=== PATIENT | female | born 1940 | race African-American/Black ===

== ENCOUNTER 2020-04-09 06:00 | Inpatient (IN) | payer OTHER ==
[2020-04-09] MEDS ORDERED: BENZOIN/ALOE VERA/STORAX/TOLU 58 ML BOTTLE ONE (07:34)
[2020-04-09] MEDS ORDERED: HEPARIN NA (PORCINE) 5,000 UNITS/ML 1ML VIAL ONE (07:34)
[2020-04-09] MEDS ORDERED: THROMBIN (BOVINE) 5,000 UNIT VIAL TP ONE ×2 (07:34→09:51)
[2020-04-09] MEDS ORDERED: PROPOFOL 20 ML ONE ×9 (07:55→12:39)
[2020-04-09] MEDS ORDERED: MIDAZOLAM HCL 2 MG/2 ML SINGLE DOSE VIAL ONE (07:58)
[2020-04-09] MEDS ORDERED: ROCURONIUM BROMIDE 50 MG/5 ML SYRINGE ONE (08:00)
[2020-04-09] MEDS ORDERED: EPHEDRINE SULFATE/0.9% NACL/PF 50 MG/10 ML SYRINGE NR ONE (08:01)
[2020-04-09] MEDS ORDERED: ceFAZolin SODIUM 1 GM VIAL IVPB ONE (08:54)
[2020-04-09] MEDS ORDERED: VANCOMYCIN 1,000 MG VIAL (RESTRICTED TO ID ONLY) IVPB ONE (09:02)
[2020-04-09] MEDS ORDERED: fentaNYL CITRATE 250 MCG/5 ML VIAL ONE (09:05)
[2020-04-09] MEDS ORDERED: HYDROmorphone HCl 2 MG/ML VIAL ONE (09:40)
[2020-04-09] MEDS ORDERED: BUPIVACAINE HCL/PF 0.25% (2.5MG/ML) 10 ML VIAL ONE (10:51)
[2020-04-09] MEDS ORDERED: BUPIVACAINE LIPOSOME/PF (EXPAREL) 266 MG/20 ML VIAL ONE (10:51)
[2020-04-09] MEDS ORDERED: morphine SULFATE/PF 0.5 MG/ML (2cc Syringe - QUVA) ONE (12:16)
[2020-04-09] MEDS ORDERED: BUPIVACAINE HCL/PF 2.5 MG/ML - 30 ML VIAL IJ ONE (13:01)
[2020-04-09] MEDS ORDERED: BUPIVACAINE LIPOSOME/PF (EXPAREL) 266 MG/20 ML VIAL NR ONE (13:01)
[2020-04-09] MEDS ORDERED: SODIUM CHLORIDE 0.9% P/F 10 ML VIAL IJ ONE (13:22)
[2020-04-09] MEDS ORDERED: LIDOCAINE HCL 2% JELLY (5 ML/TUBE) ONE (13:22)
[2020-04-09] MEDS ORDERED: ceFAZolin SODIUM 1 GM VIAL ONE ×2 (13:22→21:00)
[2020-04-09] MEDS ORDERED: LIDOCAINE HCL/PF 2% SDV 5ML VIAL ONE (13:22)
[2020-04-09] MEDS ORDERED: DEXAMETHASONE SOD PHOSPHATE 4 MG/1 ML VIAL ONE (13:22)
[2020-04-09] MEDS ORDERED: TRANEXAMIC ACID 1000 MG/10 ML VIAL ONE (13:22)
[2020-04-09] MEDS ORDERED: GLYCOPYRROLATE 0.2 MG/1 ML VIAL ONE (13:22)
[2020-04-09] MEDS ORDERED: ONDANSETRON 4 MG/2 ML VIAL ONE (13:22)
[2020-04-09] MEDS ORDERED: VANCOMYCIN 1,000 MG VIAL (RESTRICTED TO ID ONLY) ONE (13:22)
[2020-04-09] MEDS ORDERED: NEOSTIGMINE METHYLSULFATE 0.5 MG/1 ML - 10 ML MDV ONE (13:49)
[2020-04-09] MEDS ORDERED: ACETAMINOPHEN 1000 MG/100 ML VIAL (NON FORMULARY) IVPB PRN (13:57)
[2020-04-09] MEDS ORDERED: ONDANSETRON 4 MG/2 ML VIAL IVPUSH PRN (13:57)
[2020-04-09] MEDS ORDERED: diazePAM 2 MG TABLET PO PRN (13:57)
--- NOTE | 2020-04-09 14:05 | PN ---
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 (short form) - Note 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: 79F s/p removal of hardware L3-L5 (including L4-L5 intervertebral cage), inspection of fusion mass, L3-S1 laminectomies, L5-S1 PLIF, L3-S1 posterior instrumented spinal fusion POD #0. Incidental durotomy during cage removal successfully repaired; Multiple valsalva maneuvers negative for CSF leak. -Admit to ICU post-op. -Pain control: NO NSAID's; patient received intra-op paraspinal muscle block w/Exparel & marcaine; OK to use HIGH DENSITY TALC COATER OPERATOR if needed; transition to oral analgesia post-op. -DVT PPx: -Mechanical only: LITA's, SCD's. -Chemical: None. -Incentive spirometry q15 min. -NPO until flatus. -[place] care; d/c when ambulating. -Ancef post-op x 3 doses. -PT/OT/Rehab, OOB. -WBAT B/L LE. -No bending, lifting (>5 lbs), or twisting for 9-12 months. -Care per ICU & medical hospitalist teams. -Discharge planning: Ubaldo gutierrez; f/u 7-10 days after rehab discharge at [facility] office; call for appointment; . -Will follow. Seth Cuenca MD (Orthopaedic Surgery).
--- NOTE | 2020-04-09 14:09 | OP ---
Operative Note - Note: Operative Date: 04/09/20 Pre-Operative Diagnosis: Migrated intervertebral cage. Radiculopathy. Back pain Operation: 1. Removal of hardware. 2. Inspections of fusion mass. 3. L3-S1 laminectomies. 4. L5-S1 PLIF. 5. L3-S1 PISF Post-Operative Diagnosis: Same as Pre-op Surgeon: Seth Cuenca Consultant Teacher: Marko Cuenca Anesthesiologist/COLLECTIONS CLERK: Ara Smith Anesthesia: General Specimens Removed: Hardware Estimated Blood Loss (mls): 375 Blood Volume Replaced (mls): 125 (Cell Saver) Fluid Volume Replaced (mls): 1,700 (Crystalloid) Operative Report Dictated: Yes
[2020-04-09] MEDS ORDERED: NALOXONE HCL 0.4 MG/ML VIAL ONE (14:11)
--- NOTE | 2020-04-09 14:58 | OP ---
DATE OF OPERATION: DATE OF DICTATION: 04/09/2020 ADDENDUMClosure: Fascial 1 Vicryl, subcutaneous 1 and 2-0 Vicryl, skin twan. No drain was utilized. One g vancomycin given just at the time of closure. Operation went well. No complications. Blood loss 375 mL, 125 mL given back via cell saver. MD SHREYA Mcfarland/[id number]
[2020-04-09] MEDS ORDERED: METOPROLOL TARTRATE 5 MG/5 ML VIAL ONE (18:01)
[2020-04-09] MEDS ORDERED: METOPROLOL TARTRATE 5 MG/5 ML VIAL IVPUSH ONE ×2 (18:05→18:11)
[2020-04-09] MEDS ORDERED: LABETALOL HCL 5 MG/1 ML (100MG/20 ML VIAL) IVPUSH ONE (19:51)
--- NOTE | 2020-04-09 19:51 | CONSULT ---
Consultation: REQUESTING PROVIDER: Dr. Cuenca CONSULT REQUEST: We have been asked to medically evaluate this patient for postoperative management HISTORY OF PRESENT ILLNESS: Patient is a 79 year old female with history of hypertension, dementia, depression, spinal stenosis, neuropathy admitted for removal of L3-L5 hardware, including L4-L5 intervertebral cage, L3-S1 laminectomy, L5-S1 PLIF, L3-S1 posterior instrumented spinal fusion. Upon my encounter, patient endorses mild pain (5/10). Denies subjective fevers, chills, shortness of breath, chest pain, palpitations, abdominal pain, nausea, vomiting. diarrhea. Additional history obtained from patient's niece; endorses history of prior back surgery 8 years ago (?Dr Davies)- removed today due to worsening pain, and reported spinal impingement. At baseline, patient does not ambulate, and has 24 hour home care. REVIEW OF SYSTEMS: As per HPI. At baseline, patient has history of dementia and is unable to provide further historical details. PHYSICAL EXAMINATION Vital Signs - 24 hr 04/09/20 04/09/20 04/09/20 06:38 06:40 14:26 Temperature 97.1 F L 98.3 F Pulse Rate 63 94 H Respiratory 16 10 Rate Blood Pressure 175/82 H 185/90 H O2 Sat by Pulse 97 100 Oximetry (%) 04/09/20 04/09/20 04/09/20 14:45 15:00 15:15 Temperature Pulse Rate 72 77 76 Respiratory 10 9 L 13 Rate Blood Pressure 164/75 157/75 153/72 O2 Sat by Pulse 100 100 100 Oximetry (%) 04/09/20 04/09/20 04/09/20 15:30 15:45 16:00 Temperature Pulse Rate 88 87 82 Respiratory 10 10 14 Rate Blood Pressure 148/83 163/82 153/79 O2 Sat by Pulse 100 100 100 Oximetry (%) 04/09/20 04/09/20 04/09/20 16:15 16:30 16:45 Temperature Pulse Rate 81 86 86 Respiratory 13 12 15 Rate Blood Pressure 156/91 158/79 159/80 O2 Sat by Pulse 100 99 98 Oximetry (%) 04/09/20 04/09/20 04/09/20 17:00 17:15 17:30 Temperature Pulse Rate 82 76 81 Respiratory 11 10 12 Rate Blood Pressure 155/80 178/86 H 182/76 H O2 Sat by Pulse 99 99 100 Oximetry (%) 04/09/20 04/09/20 04/09/20 17:46 18:29 18:31 Temperature 97.7 F 98.0 F Pulse Rate 82 64 Respiratory 12 13 13 Rate Blood Pressure 198/83 H 179/83 H O2 Sat by Pulse 100 100 Oximetry (%) GENERAL: Awake, alert, and oriented to person, and place in no acute distress. HEAD: Normal with no signs of trauma. EYES: Pupils equal, round and reactive to light, extraocular movements intact, conjunctiva clear. EARS, NOSE, THROAT: oropharynx clear without exudates. Moist mucous membranes. NECK: Normal range of motion, supple without lymphadenopathy, JVD, or masses. LUNGS: Breath sounds equal, clear to auscultation bilaterally. No wheezes, and no crackles. No accessory muscle use. HEART: Regular rate and rhythm, normal S1 and S2. Holosystolic murmur auscultated. ABDOMEN: Soft, nontender, not distended, normoactive bowel sounds, no guarding, no rebound, no masses. MUSCULOSKELETAL: Normal range of motion at all joints. No bony deformities or tenderness. No CVA tenderness. EXTREMITIES: 2+ radial, dorsalis pedis pulses, warm, well-perfused. No cyanosis. No peripheral edema. NEUROLOGICAL: Cranial nerves II-XII intact. Normal speech PSYCHIATRIC: Cooperative. Good eye contact. Appropriate mood and affect. SKIN: Warm, dry. Lumbar surgical site bandaged clean, dry. Laboratory Results - last 24 hr 04/09/20 04/09/20 06:08 08:30 Blood Type O POSITIVE O POSITIVE Antibody Screen Negative Active Medications Generic Name Dose Route Start Last Admin Trade Name Freq PRN Reason Stop Dose Admin Acetaminophen 1,000 mg 04/09/20 13:57 Ofirmev Injection - IVPB 04/10/20 13:56 PRN PRN If narcotics are ineffective Citalopram Hydrobromide 20 mg 04/09/20 22:00 Celexa - PO HS JAYE Diazepam 2 mg 04/09/20 13:57 Valium - PO Q8H PRN MUSCLE SPASMS Lactated Ringer's 1,000 mls @ 125 mls/hr 04/09/20 14:00 Lactated Ringers Solution IV ASDIR JAYE Cefazolin Sodium 1 gm/ 50 mls @ 100 mls/hr 04/09/20 20:00 Dextrose IVPB 04/10/20 03:29 Q6H-IV JAYE Losartan Potassium 25 mg 04/10/20 10:00 Cozaar - PO DAILY JAYE Mirtazapine 7.5 mg 04/09/20 22:00 Remeron - PO HS JAYE Ondansetron HCl 4 mg 04/09/20 13:57 Zofran Injection IVPUSH Q6H PRN NAUSEA AND/OR VOMITING Oxycodone HCl 10 mg 04/09/20 13:57 Roxicodone - PO Q4H PRN PAIN LEVEL 6-10 Oxycodone HCl 5 mg 04/09/20 13:57 Roxicodone - PO Q4H PRN PAIN LEVEL 1-5 ASSESSMENT/PLAN: Patient is a 79 year old female with history of dementia, hypertension, spinal stenosis s/p removal of L3-L5 hardware, including L4-L5 intervertebral cage, L3- S1 laminectomy, L5-S1 PLIF, L3-S1 posterior instrumented spinal fusion. Neurologic History of dementia, depression -Continue home Mirtazapine, Citalopram -Monitor for signs of mental status changes Pulmonary -Currently saturating well, without respiratory distress. -Incentive spirometer q15 minutes -Monitor for change in oxygen requirements, respiratory distress Cardiovascular History of hypertension -Losartan 25mg PO daily -Labetalol 10mg IV push for systolic BP greater than 160mmHg Musculoskeletal S/P removal of L3-L5 hardware, including L4-L5 intervertebral cage, L3-S1 laminectomy, L5-S1 PLIF, L3-S1 posterior instrumented spinal fusion. -Pain control with Oxycodone, Morphine. NO NSAIDs per orthopedic surgery -Physical therapy consult Gastrointestinal -NPO until patient is passing flatus -Gentle hydration with IV normal saline at 50mL/ hour FEN -IV normal saline at 50mL/ hour -Follow BMP -NPO until flatus Prophylaxis -SCDs bilateral lower extremities Disposition: We will continue to follow the patient. Thank you for this consultative opportunity. Visit type - Emergency Visit Emergency Visit: Yes ED Registration Date: 04/09/20 Care time: The patient presented to the Emergency Department on the above date and was hospitalized for further evaluation of their emergent condition. - New Patient This patient is new to me today: Yes Date on this admission: 07/06/20 - Critical Care Critical Care patient: Yes Total Critical Care Time (in minutes): 37 Critical Care Statement: The care of this patient involved high complexity decision making to prevent further life threatening deterioration of the patient's condition and/or to evaluate & treat vital organ system(s) failure or risk of failure. ATTENDING PHYSICIAN STATEMENT I saw and evaluated the patient. I reviewed the resident's note and discussed the case with the resident. I agree with the resident's findings and plan as documented. SUBJECTIVE: OBJECTIVE: ASSESSMENT AND PLAN:
[2020-04-09] MEDS ORDERED: MORPHINE SULFATE 2 MG/ML VIAL IVPUSH ONE (19:54)
[2020-04-09] MEDS ORDERED: MORPHINE SULFATE 2 MG/ML VIAL ONE (19:58)
--- NOTE | 2020-04-09 20:04 | OP ---
Date of Operation: 04/09/2020 Pre-Operative Diagnosis: 1. Failed hardware with migrated cage and associated spinal stenosis, nerve root compression, and radiculopathy 2. 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 3. L3-S1 spinal stenosis with neurogenic claudication. 4. L5-S1 spondylolisthesis (Grade 1 retrolisthesis). 5. L5-S1 axial segmental instability. 6. Pseudarthrosis L4-L5 Post-Operative Diagnosis: 1. Failed hardware with migrated cage and associated spinal stenosis, nerve root compression, and radiculopathy 2. 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 3. L3-S1 spinal stenosis with neurogenic claudication. 4. L5-S1 spondylolisthesis (Grade 1 retrolisthesis). 5. L5-S1 axial segmental instability. 6. Pseudarthrosis L4-L5 Procedure Performed: 1. Removal of hardware L3-L5 (screws, rods); removal of L4-L5 migrated intervertebral cage. (84699) 2. Inspection of fusion mass. ([id number]) 3. L3, L4, L5, S1 bilateral laminectomies and facetectomies. (19891-49-73, x 3) 4. L5-S1 posterolateral arthrodesis & posterior lumbar interbody fusion (PLIF). (67226-04) 5. L5-S1 insertion biomechanical device. (63410-25) 6. L3-S1 posterior instrumentation. (49366-30-27-13) 7. L3-L4, L4-L5. (, ) 8. Morselized bone autograft. () 9. Morselized bone allograft. () 10. Bone marrow aspiration for bone grafting. (15728-44) 11. Complex wound closure, 4 layers, 30cm. (03260-66 x 4) 12. Paraspinal muscle block w/Exparel & Marcaine. Surgeon: Seth Cuenca M.D. Clothing Examiner: Marko Cuenca M.D. Anesthesiologist: Ara Smith M.D. Anesthesia: General. Position: Prone. Incision: Midline. Specimens Removed: L5-S1 disc. Drains: None. Estimated Blood Loss: 375cc. Intravenous Fluid: 1.7L crystalloid. Transfusions: 125cc Cell Saver. Complications: None. Bacteriology: None. Closure: No. 1 Vicryl, 2-0 Biosyn absorbable sutures. Indications: The patient was indicated for the above listed surgical procedure due to progressive neurological and functional decline that limits her mobility and capacity to independently perform routine activities of daily living. She has been rendered wheelchair bound due to her level of dysfunction. The patient was identified in the holding area by her armband. A long discussion was held with the patient regarding the risks, benefits and alternatives of the above-named procedure. The risks include, but are not limited to: pain, bleeding, infection, damage to surrounding structures (including nerves, blood vessels, skin, ligaments, tendons, and bone), nerve palsy, paresthesias, weakness, limp, wound complications, pseudarthrosis, failure of fusion, failure of hardware/implants/reduction, need for further surgery, blood clots, myocardial infarction, pulmonary embolism, cerebrovascular event, anesthesia complications, neurological injury, loss of function, and . Benefits as mentioned above. Alternatives include no surgery. All questions were answered. The patient understood and agreed to the procedure. Informed consent was obtained, witnessed and verified by hospital nursing staff. The patients lumbar spine was marked. The patient was then taken to the operating room. Procedure: The patient was brought into the operating room. Consent and the operative site were again verified with the patient, the nursing team, the surgical team, and the anesthesiology team. Anesthesia, IV antibiotics, and TXA were then administered without complication. A time out was done, led by me the attending surgeon. An indwelling [place] catheter was successfully inserted by the nursing team. The intra-operative neuromonitoring team provided prepositioning baseline motor and sensory readings. The patient was then safely placed in a prone position with all bony prominences well-padded on a [facility] OS spine table with strict attention paid to maintenance of sagittal vertical alignment. Retroversion of the pelvis was avoided by ensuring that the hips were extended. This also ensured appropriate lumbar lordosis. The arms were placed on well-padded arm boards and maintained with standard forward flexion, abduction, and external rotation of the shoulders, and flexion of the elbows. Special attention was given to the safe positioning of the cervical spine. The patients eyes, breasts, and belly were all free. The table was placed in 6 degrees of reverse Trendelenburg position to avoid ophthalmic vein congestion. Post-positional motor and sensory readings confirmed no change. A C-arm fluoroscopy unit was positioned perpendicularly to the table and maintained at the level of the upper thoracic spine, except when needed. The skin was prepped in standard, sterile fashion using betadine prep & scrub, wiped off with alcohol, and DuraPrep applied. Standard window draping was utilized, and this included draping of the C-arm. All pre-operative imaging was available throughout the case for intraoperative evaluation. Verification of the intended surgical levels was confirmed with a lateral fluoroscopic x-ray using a Chadwick elevator for localization. A time-out was repeated, and the case began. A midline skin incision was performed from the tip of the spinous process of L1 to the tip of the spinous process of S2. Using electrocautery, the dissection was carried down through subcutaneous fat and then through the midline of the lumbodorsal fascia down to the tips of the spinous processes. A subperiosteal dissection was performed using a combination of unipolar electrocautery and Chadwick elevation. This was carried down the spinous process, over the laminae, across the facet joints, and out over the tips of the transverse processes from L3 to the ala of the sacrum. The previously placed bilateral L3-5 transpedicular screws and associated rods were fully exposed during this dissection. The posterolateral dissection was performed with attention to hemostasis by utilizing both unipolar as well as bipolar electrocautery. In this dissection, the capsules of the L2-L3 joints were preserved bilaterally. The L3-L4, L4-L5, and L5-S1 joint capsules were pathologically hypertrophic. These facet joints were ablated using electrocautery and resected with Leksell rongeurs. The posterolateral and intertransverse spaces were packed with Ray-Joo sponges. A rongeur was used to grasp the L3, L4, and L5 spinous processes and demonstrate the mobility of the L3-L4, L4-L5, and L5-S1 segments. This helped identify the last mobile segment. A pseudarthrosis was identified at L4-L5. All screw caps, rods, and screws were then successfully removed without complication. Bilateral laminectomies were performed at L3, L4, L5, and S1 utilizing Kerrison rongeur upcuts combined with Leksell rongeurs. All harvested bone was saved, freed of fibrous tissue, and morselized with a bone mill. Next, an osteotome was utilized to bilaterally longitudinally split the pars interarticularis and the inferior facets of L3, L4, and L5. The osteotomized bone was imploded towards the thecal sac, which was protected with cottonoid patties, and removed with either a Leksell rongeur or a Kerrison ronguer. The ligamentum flavum and other posterior soft tissue remained intact and served as a soft-tissue cushion which protected the dura during the bony implosion. Upon removal of all osteotomized bone, we gained clear and easy access to the superior facets of L4, L5, and S1, where abnormally tight recess stenosis was appreciated. The exiting L3, L4, L5, & S1 nerve roots were identified and protected. More than the medial half of the superior facet was resected on each side using Kerrison rongeurs. This was necessary to adequately decompress the theca and the exiting nerve roots at each level. The crowding of the convoluted ligamentum flavum and posterior facet joint capsules contributed to the recess stenosis. These structures were excised using Kerrison upcuts, thus fully completing the decompression. Each foramen from L3-S1 was inspected utilizing an angled ball-tipped probe and proved to be generously capacious in accommodating the unobstructed exit of the nerve root at that level. The proud cage was readily noted at L4-L5. A nerve root retractor was used to expose the left side of the intervertebral space at L4-L5. The thecal sac could not be retracted due to adhesions now binding it to the underlying, posteriorly migrated intervertebral cage. At least 25% of the cage was proud. The thecal sac was meticulously dissected off the cage using a Sakina elevator and Gamaliel 4 elevator. With the thecal sac full dissected off the cage, an osteotome was sunk along all 4 borders of the cage to free it up from adhesed surfaces. The cage was adherent anteriorly and a Leksell rongeur was used to remove the cage in piecemeal fashion. The cage was completely, successfully removed. A longitudinal durotomy occurred during cage removal. The durotomy was successfully repaired using 4-0 Nurolon sutured in simple interrupted fashion. The thecal sac appeared plump and normal turgor restored. The anesthesiologist then performed a Valsalva maneuver up to 40mmHg. There was no evidence of dural defect, cerebrospinal fluid leak, or uncontrollable bleeding. There was reactive bone formation within the L4-L5 interspace. The decision was made not to further add bone graft to the L4-L5 interspace due to the possibility of posterior migration and future ingrowth or ongrowth involving the neural elements. All retractors were relaxed and removed. A Jamshidi needle was delivered into the left posterior ileum through the same surgical incision. Via this, 60 mL of bone marrow was aspirated and spun down to isolate a mix of osteoprogenitor and hematopoietic cells, and molecular growth factors which might facilitate fusion formation. Retractors were inserted once again. In order to adequately decompress each lateral recess and neuroforamen from L3- S1, greater than 50% of the facet joint on each side was osteotomized and resected. This extensive decompression has been shown to result in iatrogenic instability of the spine (I.E. spondylolisthesis). Thus, the decision was made to additionally perform posterior lumbar interbody fusions at L4-L5 and L5-S1 (where the discs were additionally compromised) with instrumented posterolateral arthrodesis from L3-S1. The combination of anterior interbody arthrodesis and posterolateral instrumented arthrodesis is known to produce the highest success rates of spinal fusion surgery. The following was performed at L5-S1: The theca was gently mobilized from left to right using a nerve root retractor. In order to do this, we ensured that each nerve root was completely free in its neural foramen as previously described. With the intervertebral disc clearly visualized, large epidural veins were cauterized using bipolar electrocautery. The disc was approached from the left side and using a #11-blade, an elliptical annulotomy was performed. Italo were passed into the disc. The disc was morselized with rotation of the italo, and then extricated with pituitary rongeurs and saved for lab evaluation. The end plates were freed of all soft tissues using a serrated curette. Milled bone autograft was packed into the interbody space, thus completing an anterior arthrodesis of the intervertebral space. A 84x72ty Fortilink Tetrafuse spacer, that was packed with autograft bone, was inserted into the prepared intervertebral space. The cage was placed in a Press-Fit type manner where the italo were one size under the actual size of the spacer placed as outlined above. An interference fit of the cage assured as we relied on ligamentotaxis for fixation. Placement of the interbody cage additionally reconstituted the intervertebral disc height, which further decompressed the stenosed neuroforaminae bilaterally. No dural problems were encountered, and the dura appeared healthy throughout the procedure. At this point, the neuromonitoring revealed no complications. Pedicle screws were then seated bilaterally from L3-L5 utilizing the previously used screw holes. Pedicle screws were then seated bilaterally at S1 utilizing standard anatomical guidelines: IE the intersection of the horizontal axis of the transverse process with the longitudinal axis of the inferior facet at each level. Utilizing lateral fluoroscopic x-ray, a 4.5mm pneumatic drill was passed via the pedicle at each level, into the corresponding vertebral body. Imaging allowed us to ensure that the drill screw was delivered along the undersurface of each endplate. This ensured fixation into the best quality bone. Each pedicle was palpated with a ball-tipped feeler. No breech of anterior, medial, lateral, caudal or cranial bone bed was noted. Precision Spine Reform screws were inserted from L3 to S1. All intraoperative neuromonitoring readings were at or above the safe passage of 10 mA. Each screw was reevaluated with lateral and anteroposterior fluoroscopy as well as intraoperative neuromonitoring. The L3, L4, L5 and S1 pedicles were inspected and palpated using an angled ball- tipped probe. There was no evidence of screw breach involving any of the pedicles. Next, two rods were contoured, inserted, and fixed into the screw heads with the appropriate screw caps. A torque-limiting device completed the fixation of each cap into each screw head. No crosslink utilized because of the bulging dura. Next, the muscle was gently retracted off the intertransverse plane. All Ray-Joo packing sponges were removed. The anesthesiologist then performed a repeat Valsalva maneuver up to 40mmHg. There was no evidence of dural defect, cerebrospinal fluid leak, or uncontrollable bleeding. The durotomy site was covered with SurgiCel and DuraSeal. Milled autologous bone with allograft expansion was combined with the bone marrow aspirate concentrate and used for the posterolateral arthrodesis along the intertransverse plane from L3 to S1. Prior to this bone grafting, the recipient bone bed was denuded of all soft tissue. No burring was necessary due to healthy bleeding of each bony surface, including the posterior surfaces of the bilateral transverse processes, and the lateral surfaces of the pars interarticularis at each level. Throughout the case, the wound was irrigated with normal saline solution to keep the exposed soft tissues hydrated. The retractors were released every 15 to 20 minutes to enable adequate blood flow to the paraspinal muscles. These muscles were gently massaged upon release of the retractors to further facilitate blood flow. At the end of the procedure, fragmented and compromised paraspinal muscle was superficially debrided. Closure: The lumbodorsal fascia overlying the paraspinal musculature was closed in the midline using #1 vicryl sutures in simple interrupted fashion. The wound was repeatedly thoroughly irrigated with normal saline solution. Excellent hemostasis was achieved and the decision was made not to place a drain. The subcutaneous tissues were closed using #1 Vicryl sutures. The skin was closed using skin twan. This completed a 4-layered complex wound closure of approximately 30cm. The incision was covered with Xeroform and a Primapore adhesive Telfa island dressing. A compressive dressing was applied using 4x4 gauze pads. The skin was painted with DuraPrep. The wound was then sealed with adhesive Ioban. Final AP & lateral fluoroscopic analysis a L5-S1 PLIF cages and L3-S1 instrumentation that appeared intact & place. The L5-S1 disc heights were reconstituted with visibly patent neuroforaminae. There was no fluoroscopic evidence of retained sponges or needles. The sponge and needle counts were correct at the end of the case and I, the attending surgeon, was present and scrubbed throughout the case. All neural monitoring leads were removed. The patient was transferred to a hospital bed. The patient was then transferred to the recovery room in stable condition, as per the anesthesia team, having tolerated the procedure well. Overall comment: Operation went extremely well. All appropriate goals were achieved in this operative event. MD SHREYA Mcfarland/[id number] [email or web address]
[2020-04-09] MEDS ORDERED: SODIUM CHLORIDE 1,000 ML IV SCH (20:15)
[2020-04-09] MEDS ORDERED: PT OWN MED DRAWER 7, Y5N ONE (21:00)
[2020-04-09] MEDS ORDERED: DEXTROSE 5%-WATER - 50 ML IVPB ONE (21:00)
[2020-04-09] MEDS: MIRTAZAPINE 15 MG TABLET (FP) PO SCH (21:01)
[2020-04-09] MEDS: LACTATED RINGERS SOLUTION 1,000 ML IV SCH (21:02)
[2020-04-09] MEDS: CEFAZOLIN 1 GM in DEXTROSE 5%-WATER - 50 ML IVPB SCH ×2 (21:02)
[2020-04-09] MEDS: oxyCODONE HCL 5 MG TABLET PO PRN (21:20)
[2020-04-09] MEDS: CITALOPRAM HYDROBROMIDE 20 MG TABLET PO SCH (21:59)
[2020-04-09] MEDS ORDERED: LIDOCAINE 5% TOPICAL PATCH TP ONE (22:00)
[2020-04-10] MEDS ORDERED: DEXTROSE 5%-WATER - 50 ML IVPB ONE (01:11)
[2020-04-10] MEDS ORDERED: ceFAZolin SODIUM 1 GM VIAL ONE (01:11)
[2020-04-10] MEDS: oxyCODONE HCL 5 MG TABLET PO PRN ×3 (01:59→21:45)
[2020-04-10] MEDS: CEFAZOLIN 1 GM in DEXTROSE 5%-WATER - 50 ML IVPB SCH (02:00)
[2020-04-10 06:46] LABS: HEMATOCRIT 37.7 % (32.4-45.2); HEMOGLOBIN 11.8 GM/dL (10.7-15.3); MCH 26.7 pg (25.7-33.7); MCHC 31.3 g/dl (32.0-36.0); MEAN CELL VOLUME 85.5 fl (80-96); MEAN PLT VOLUME 8.7 fl (7.5-11.1); PLATELET COUNT 293 K/MM3 (134-434); RBC 4.41 M/mm3 (3.60-5.2); RDW 13.4 % (11.6-15.6); WHITE BLOOD COUNT 23.4 K/mm3 (4.0-10.0)
[2020-04-10 06:57] LABS: BLOOD UREA NITROGEN 14.4 mg/dL (7-18); CALCIUM 9.9 mg/dL (8.5-10.1); CREATININE 0.9 mg/dL (0.55-1.3); MAGNESIUM 1.5 mg/dL (1.8-2.4); PHOSPHOROUS 3.6 mg/dL (2.5-4.9); POTASSIUM 4.2 mmol/L (3.5-5.1)
[2020-04-10] MEDS ORDERED: MAGNESIUM SULF 50% (8.12 MEQ/2 ML-1 GM VIAL) IVPB ONE (07:52)
[2020-04-10] MEDS: LOSARTAN POTASSIUM 25 MG TABLET PO SCH (09:09)
[2020-04-10] MEDS ORDERED: LIDOCAINE PATCH REMOVAL MC ONE (10:00)
[2020-04-10] MEDS: LACTATED RINGERS SOLUTION 1,000 ML IV SCH ×2 (12:41→15:09)
--- NOTE | 2020-04-10 13:59 | PN ---
<Ej Covarrubias MD - Last Filed: 04/11/20 12:19> Physical Exam: SUBJECTIVE: Patient seen and examined OBJECTIVE: Vital Signs Period Temp Pulse Resp BP Sys/Lepe Pulse Ox Last 24 Hr 98.2 F-98.7 F 76-87 15-25 130-150/54-68 100 GENERAL: The patient is awake, alert, and fully oriented, in no acute distress. HEAD: Normal with no signs of trauma. EYES: PERRL, extraocular movements intact, sclera anicteric, conjunctiva clear. No ptosis. ENT: Ears normal, nares patent, oropharynx clear without exudates, moist mucous membranes. NECK: Trachea midline, full range of motion, supple. LUNGS: Breath sounds equal, clear to auscultation bilaterally, no wheezes, no crackles, no accessory muscle use. HEART: Regular rate and rhythm, S1, S2 without murmur, rub or gallop. ABDOMEN: Soft, nontender, nondistended, normoactive bowel sounds, no guarding, no rebound, no hepatosplenomegaly, no masses. EXTREMITIES: 2+ pulses, warm, well-perfused, no edema. NEUROLOGICAL: Cranial nerves II through XII grossly intact. Normal speech, gait not observed. PSYCH: Normal mood, normal affect. SKIN: Warm, dry, normal turgor, no rashes or lesions noted Laboratory Results - last 24 hr 04/11/20 04/11/20 05:45 05:45 WBC 19.9 H RBC 3.45 L Hgb 9.2 L Hct 29.0 L D MCV 84.2 MCH 26.6 MCHC 31.6 L RDW 13.3 Plt Count 265 MPV 8.1 Absolute Neuts (auto) 17.3 H Neutrophils % 86.7 H Lymphocytes % 7.1 L Monocytes % 5.7 Eosinophils % 0.1 Basophils % 0.4 Nucleated RBC % 0 Sodium 137 Potassium 4.2 Chloride 103 Carbon Dioxide 29 Anion Gap 5 L BUN 8.6 Creatinine 0.6 Est GFR (CKD-EPI)AfAm 101.90 Est GFR (CKD-EPI)NonAf 87.92 Random Glucose 89 Calcium 8.8 Phosphorus 2.1 L Magnesium 1.8 Total Bilirubin 0.7 AST 20 ALT 11 L Alkaline Phosphatase 71 Total Protein 5.6 L Albumin 2.1 L Active Medications Generic Name Dose Route Start Last Admin Trade Name Freq PRN Reason Stop Dose Admin Citalopram Hydrobromide 20 mg 04/09/20 22:00 04/10/20 21:44 Celexa - PO 20 mg HS JAYE Administration Diazepam 2 mg 04/09/20 13:57 Valium - PO Q8H PRN MUSCLE SPASMS Lactated Ringer's 1,000 mls @ 125 mls/hr 04/09/20 14:00 04/11/20 06:21 Lactated Ringers Solution IV 125 mls/hr ASDIR JAYE Administration Losartan Potassium 25 mg 04/10/20 10:00 04/11/20 10:43 Cozaar - PO 25 mg DAILY JAYE Administration Mirtazapine 7.5 mg 04/09/20 22:00 04/10/20 21:45 Remeron - PO 7.5 mg HS JAYE Administration Ondansetron HCl 4 mg 04/09/20 13:57 Zofran Injection IVPUSH Q6H PRN NAUSEA AND/OR VOMITING Oxycodone HCl 10 mg 04/09/20 13:57 04/10/20 01:59 Roxicodone - PO 10 mg Q4H PRN Administration PAIN LEVEL 6-10 Oxycodone HCl 5 mg 04/09/20 13:57 04/11/20 06:21 Roxicodone - PO 5 mg Q4H PRN Administration PAIN LEVEL 1-5 ASSESSMENT/PLAN: Lumbar Spinal Stenosis s/p Removal of L3-L5 hardware, including L4-L5 intervertebral cage, L3-S1 laminectomy, L5-S1 PLIF, L3-S1 posterior instrumented spinal fusion HTN - pain control - incentive spirometry - rehab/PT - DVT prophylaxis - disposition per surgery ATTENDING PHYSICIAN STATEMENT I saw and evaluated the patient. I reviewed the resident's note and discussed the case with the resident. I agree with the resident's findings and plan as documented. SUBJECTIVE: OBJECTIVE: ASSESSMENT AND PLAN: <Katheryn Alexis - Last Filed: 04/12/20 16:49> Physical Exam: SUBJECTIVE: Patient seen and examined. Stated that her pain is 5/10. She is POD #1 of removal of L3-L5 hardware, including L4-L5 intervertebral cage, L3-S1 laminectomy, L5-S1 PLIF, L3-S1 posterior instrumented spinal fusion. OBJECTIVE: Vital Signs Period Temp Pulse Resp BP Sys/Lepe Pulse Ox Last 24 Hr 97.7 F-98.3 F 58-94 9-17 133-198/57-91 98-100 GENERAL: The patient is awake, alert and in no acute distress. HEENT: NCAT LUNGS: Breath sounds equal, clear to auscultation bilaterally, no wheezes HEART: Regular rate and rhythm, S1, S2 without murmur ABDOMEN: Soft, nondistended EXTREMITIES: warm, well-perfused, no edema. Spontaneous movement in all 4 extremities. SKIN: Warm, dry. Surgical site on back is clean, dry and intact. Laboratory Last Values WBC 23.4 K/mm3 (4.0-10.0) H 04/10/20 05:40 RBC 4.41 M/mm3 (3.60-5.2) 04/10/20 05:40 Hgb 11.8 GM/dL (10.7-15.3) 04/10/20 05:40 Hct 37.7 % (32.4-45.2) 04/10/20 05:40 MCV 85.5 fl (80-96) 04/10/20 05:40 MCH 26.7 pg (25.7-33.7) 04/10/20 05:40 MCHC 31.3 g/dl (32.0-36.0) L 04/10/20 05:40 RDW 13.4 % (11.6-15.6) 04/10/20 05:40 Plt Count 293 K/MM3 (134-434) 04/10/20 05:40 MPV 8.7 fl (7.5-11.1) 04/10/20 05:40 Sodium 138 mmol/L (136-145) 04/10/20 05:40 Potassium 4.2 mmol/L (3.5-5.1) 04/10/20 05:40 Chloride 104 mmol/L (98-107) 04/10/20 05:40 Carbon Dioxide 24 mmol/L (21-32) 04/10/20 05:40 Anion Gap 11 MMOL/L (8-16) 04/10/20 05:40 BUN 14.4 mg/dL (7-18) 04/10/20 05:40 Creatinine 0.9 mg/dL (0.55-1.3) 04/10/20 05:40 Est GFR (CKD-EPI)AfAm 71.48 04/10/20 05:40 Est GFR (CKD-EPI)NonAf 61.67 04/10/20 05:40 Random Glucose 99 mg/dL (74-106) 04/10/20 05:40 Calcium 9.9 mg/dL (8.5-10.1) 04/10/20 05:40 Phosphorus 3.6 mg/dL (2.5-4.9) 04/10/20 05:40 Magnesium 1.5 mg/dL (1.8-2.4) L 04/10/20 05:40 Blood Type O POSITIVE 04/09/20 08:30 Antibody Screen Negative 04/09/20 06:08 Active Medications Acetaminophen (Ofirmev Injection -) 1,000 mg IVPB PRN PRN PRN Reason: If narcotics are ineffective Stop: 04/10/20 13:56 Last Admin: 04/09/20 21:57 Dose: 1,000 mg Documented by: Citalopram Hydrobromide (Celexa -) 20 mg [address] [facility] Last Admin: 04/09/20 21:59 Dose: 20 mg Documented by: Diazepam (Valium -) 2 mg PO Q8H PRN PRN Reason: MUSCLE SPASMS Lactated Ringer's (Lactated Ringers Solution) 1,000 mls @ 125 mls/hr IV ASDIR [facility] Last Admin: 04/10/20 12:41 Dose: 125 mls/hr Documented by: Sodium Chloride (Normal Saline -) 1,000 mls @ 50 mls/hr IV ASDIR [facility] Stop: 04/10/20 16:14 Last Admin: 04/09/20 21:03 Dose: 50 mls/hr Documented by: Losartan Potassium (Cozaar -) 25 mg PO DAILY [facility] Last Admin: 04/10/20 09:09 Dose: 25 mg Documented by: Mirtazapine (Remeron -) 7.5 mg PO [facility] Last Admin: 04/09/20 21:01 Dose: 7.5 mg Documented by: Ondansetron HCl (Zofran Injection) 4 mg IVPUSH Q6H PRN PRN Reason: NAUSEA AND/OR VOMITING Oxycodone HCl (Roxicodone -) 10 mg PO Q4H PRN PRN Reason: PAIN LEVEL 6-10 Last Admin: 04/10/20 01:59 Dose: 10 mg Documented by: Oxycodone HCl (Roxicodone -) 5 mg PO Q4H PRN PRN Reason: PAIN LEVEL 1-5 ASSESSMENT/PLAN: Patient is a 79 year old female with history of dementia, hypertension, spinal stenosis s/p removal of L3-L5 hardware, including L4-L5 intervertebral cage, L3- S1 laminectomy, L5-S1 PLIF, L3-S1 posterior instrumented spinal fusion. Post-op day #1. Surgical site clean, dry and intact. Neurologic History of dementia, depression -Continue home Mirtazapine, Citalopram -Monitor for signs of mental status changes Pulmonary -Currently saturating well, without respiratory distress. -Incentive spirometer q15 minutes -Monitor for change in oxygen requirements, respiratory distress Cardiovascular History of hypertension -Losartan 25mg PO daily -Labetalol 10mg IV push for systolic BP greater than 160mmHg Musculoskeletal S/P removal of L3-L5 hardware, including L4-L5 intervertebral cage, L3-S1 laminectomy, L5-S1 PLIF, L3-S1 posterior instrumented spinal fusion. -Pain control with Oxycodone, Morphine. NO NSAIDs per orthopedic surgery -Physical therapy consult -Orthopedic surgery evaluated pt. Recommends OOB to chair. Advance diet to clears if tolerated. Gastrointestinal -NPO until patient is passing flatus -Gentle hydration with IV normal saline at 50mL/ hour ID -WBC 23.4, afebrile. Will continue to trend. If uptrending WBC and febrile, will send blood cx, urine cx, UA. -If diarrhea, will send stool for C. diff. FEN -Lactated ringers 125 ml/hr -NS at 50 mL/hr -Advance diet to clears if tolerated. -Mg 1.5, repleted. Will follow and replete if depleted. Prophylaxis -SCDs bilateral lower extremities Disposition: continue ICU monitoring. Visit type - Emergency Visit Emergency Visit: Yes ED Registration Date: 04/09/20 Care time: The patient presented to the Emergency Department on the above date and was hospitalized for further evaluation of their emergent condition. - New Patient This patient is new to me today: No - Critical Care Critical Care patient: Yes Total Critical Care Time (in minutes): 38 Critical Care Statement: The care of this patient involved high complexity decision making to prevent further life threatening deterioration of the patient's condition and/or to evaluate & treat vital organ system(s) failure or risk of failure. ATTENDING PHYSICIAN STATEMENT I saw and evaluated the patient. I reviewed the resident's note and discussed the case with the resident. I agree with the resident's findings and plan as documented. SUBJECTIVE: OBJECTIVE: ASSESSMENT AND PLAN:
[2020-04-10] MEDS ORDERED: PT OWN MED DRAWER 7, Y5N ONE (21:18)
[2020-04-10] MEDS: CITALOPRAM HYDROBROMIDE 20 MG TABLET PO SCH (21:44)
[2020-04-10] MEDS: MIRTAZAPINE 15 MG TABLET (FP) PO SCH (21:45)
[2020-04-11] MEDS: LACTATED RINGERS SOLUTION 1,000 ML IV SCH ×2 (06:21→21:09)
[2020-04-11] MEDS: oxyCODONE HCL 5 MG TABLET PO PRN ×2 (06:21→21:16)
[2020-04-11 06:43] LABS: BASO % 0.4 % (0-2.0); EOS % 0.1 % (0-4.5); HEMOGLOBIN 9.2 GM/dL (10.7-15.3); LYMPH % 7.1 % (8-40); MCH 26.6 pg (25.7-33.7); MCHC 31.6 g/dl (32.0-36.0); MEAN CELL VOLUME 84.2 fl (80-96); MEAN PLT VOLUME 8.1 fl (7.5-11.1); MONO % 5.7 % (3.8-10.2); NEUT % 86.7 % (42.8-82.8); PLATELET COUNT 265 K/MM3 (134-434); RBC 3.45 M/mm3 (3.60-5.2); RDW 13.3 % (11.6-15.6); WHITE BLOOD COUNT 19.9 K/mm3 (4.0-10.0)
[2020-04-11 07:08] LABS: ALBUMIN 2.1 g/dl (3.4-5.0); BILIRUBIN,TOTAL 0.7 mg/dL (0.2-1); BLOOD UREA NITROGEN 8.6 mg/dL (7-18); CALCIUM 8.8 mg/dL (8.5-10.1); CREATININE 0.6 mg/dL (0.55-1.3); MAGNESIUM 1.8 mg/dL (1.8-2.4); PHOSPHOROUS 2.1 mg/dL (2.5-4.9); POTASSIUM 4.2 mmol/L (3.5-5.1); TOT PROT 5.6 g/dl (6.4-8.2)
[2020-04-11] MEDS ORDERED: PT OWN MED DRAWER 7, Y5N ONE ×2 (07:39→20:58)
--- NOTE | 2020-04-11 09:16 | PN ---
Physical Exam: SUBJECTIVE: Patient seen and examined. No acute overnight events. Stated that her pain is improved this morning. OBJECTIVE: Vital Signs Period Temp Pulse Resp BP Sys/Lepe Pulse Ox Last 24 Hr 97.7 F-98.7 F 67-87 15-25 130-150/54-70 100 GENERAL: The patient is awake, alert, and fully oriented, in no acute distress. HEAD: Normal with no signs of trauma. EYES: PERRL, extraocular movements intact, sclera anicteric, conjunctiva clear. No ptosis. ENT: Ears normal, nares patent, oropharynx clear without exudates, moist mucous membranes. NECK: Trachea midline, full range of motion, supple. LUNGS: Breath sounds equal, clear to auscultation bilaterally, no wheezes, no crackles, no accessory muscle use. HEART: Regular rate and rhythm, S1, S2 without murmur, rub or gallop. ABDOMEN: Soft, nontender, nondistended, normoactive bowel sounds, no guarding, no rebound, no hepatosplenomegaly, no masses. EXTREMITIES: 2+ pulses, warm, well-perfused, no edema. NEUROLOGICAL: Cranial nerves II through XII grossly intact. Normal speech, gait not observed. PSYCH: Normal mood, normal affect. SKIN: Warm, dry, normal turgor, no rashes or lesions noted Laboratory Results - last 24 hr 04/11/20 04/11/20 05:45 05:45 WBC 19.9 H RBC 3.45 L Hgb 9.2 L Hct 29.0 L D MCV 84.2 MCH 26.6 MCHC 31.6 L RDW 13.3 Plt Count 265 MPV 8.1 Absolute Neuts (auto) 17.3 H Neutrophils % 86.7 H Lymphocytes % 7.1 L Monocytes % 5.7 Eosinophils % 0.1 Basophils % 0.4 Nucleated RBC % 0 Sodium 137 Potassium 4.2 Chloride 103 Carbon Dioxide 29 Anion Gap 5 L BUN 8.6 Creatinine 0.6 Est GFR (CKD-EPI)AfAm 101.90 Est GFR (CKD-EPI)NonAf 87.92 Random Glucose 89 Calcium 8.8 Phosphorus 2.1 L Magnesium 1.8 Total Bilirubin 0.7 AST 20 ALT 11 L Alkaline Phosphatase 71 Total Protein 5.6 L Albumin 2.1 L Active Medications ASSESSMENT/PLAN: Patient is a 79 year old female with history of dementia, hypertension, spinal stenosis s/p removal of L3-L5 hardware, including L4-L5 intervertebral cage, L3- S1 laminectomy, L5-S1 PLIF, L3-S1 posterior instrumented spinal fusion. Post-op day #2. Surgical site clean, dry and intact. Stated that her pain is improved. Neurologic History of dementia, depression -Continue home Mirtazapine, Citalopram -Monitor for signs of mental status changes Pulmonary -Currently saturating well, without respiratory distress. -Encouraged Incentive spirometer q15 minutes -Monitor for change in oxygen requirements, respiratory distress Cardiovascular History of hypertension -Losartan 25mg PO daily -Labetalol 10mg IV push for systolic BP greater than 160mmHg Musculoskeletal S/P removal of L3-L5 hardware, including L4-L5 intervertebral cage, L3-S1 laminectomy, L5-S1 PLIF, L3-S1 posterior instrumented spinal fusion. -Pain control with Oxycodone, Morphine. NO NSAIDs per orthopedic surgery -Physical therapy consult -Orthopedic surgery evaluated pt. Recommends OOB to chair. Advance diet to clears if tolerated. Gastrointestinal -NPO until patient is passing flatus -Gentle hydration with IV normal saline at 50mL/ hour ID -WBC 23.4, afebrile. Will continue to trend. If uptrending WBC and febrile, will send blood cx, urine cx, UA. -If diarrhea, will send stool for C. diff. FEN -Lactated ringers 125 ml/hr -NS at 50 mL/hr -Advance diet to clears if tolerated. -Mg 1.5, repleted. Will follow and replete if depleted. Prophylaxis -SCDs bilateral lower extremities Disposition: continue ICU monitoring. ATTENDING PHYSICIAN STATEMENT I saw and evaluated the patient. I reviewed the resident's note and discussed the case with the resident. I agree with the resident's findings and plan as documented. SUBJECTIVE: OBJECTIVE: ASSESSMENT AND PLAN:
[2020-04-11] MEDS: LOSARTAN POTASSIUM 25 MG TABLET PO SCH (10:43)
--- NOTE | 2020-04-11 12:26 | PN ---
Teaching Attending Note Name of Resident: Katheryn Alexis ATTENDING PHYSICIAN STATEMENT I saw and evaluated the patient. I reviewed the resident's note and discussed the case with the resident. I agree with the resident's findings and plan as documented. SUBJECTIVE: Pt seen and examined in the ICU. Pain better controlled. Tolerating PO. Unable to tolerate PT yesterday. OBJECTIVE: Vital Signs Period Temp Pulse Resp BP Sys/Lepe Pulse Ox Last 24 Hr 98.2 F-98.7 F 76-87 15-25 130-150/54-68 100 Intake & Output 04/08/20 04/09/20 04/10/20 04/11/20 23:59 23:59 23:59 23:59 Intake Total 2925 3250 1500 Output Total 565 1350 650 Balance 2360 1900 850 Gen: NAD at rest Heart: RRR Lung: decreased breath sounds at the bases Abd: soft, nontender Ext: no edema CBC, BMP 04/11/20 05:45 04/11/20 05:45 Active Medications Citalopram Hydrobromide (Celexa -) 20 mg PO [facility] Last Admin: 04/10/20 21:44 Dose: 20 mg Documented by: Diazepam (Valium -) 2 mg PO Q8H PRN PRN Reason: MUSCLE SPASMS Lactated Ringer's (Lactated Ringers Solution) 1,000 mls @ 125 mls/hr IV ASDIR [facility] Last Admin: 04/11/20 06:21 Dose: 125 mls/hr Documented by: Losartan Potassium (Cozaar -) 25 mg PO DAILY [facility] Last Admin: 04/11/20 10:43 Dose: 25 mg Documented by: Mirtazapine (Remeron -) 7.5 mg PO [facility] Last Admin: 04/10/20 21:45 Dose: 7.5 mg Documented by: Ondansetron HCl (Zofran Injection) 4 mg IVPUSH Q6H PRN PRN Reason: NAUSEA AND/OR VOMITING Oxycodone HCl (Roxicodone -) 10 mg PO Q4H PRN PRN Reason: PAIN LEVEL 6-10 Last Admin: 04/10/20 01:59 Dose: 10 mg Documented by: Oxycodone HCl (Roxicodone -) 5 mg PO Q4H PRN PRN Reason: PAIN LEVEL 1-5 Last Admin: 04/11/20 06:21 Dose: 5 mg Documented by: ASSESSMENT AND PLAN: Lumbar Spinal Stenosis s/p Removal of L3-L5 hardware, including L4-L5 intervertebral cage, L3-S1 laminectomy, L5-S1 PLIF, L3-S1 posterior instrumented spinal fusion HTN - pain control - incentive spirometry - rehab/PT - DVT prophylaxis - disposition per surgery
--- NOTE | 2020-04-11 17:02 | PATH ---
Surgical Pathology Report Patient Name: MOO MORALES [facility]. Rec. #: [id number] /Age/Gender: 1940 (Age: 79) / F Account: [id number] Location: [facility] [employer] Taken: 04/09/2020 Received: 04/10/2020 Reported: 04/11/2020 Physicians: Seth Cuenca M.D. Specimen(s) Received A: REMOVED HARDWARE B: DISC L3-5 Clinical History Intravertebral disc disorder Final Diagnosis A. REMOVED HARDWARE: CONSISTENT WITH HARDWARE. SEPARATE PORTIONS OF BONE FRAGMENTS WITH HEMATOPOIETIC MARROW. B. DISC L3-5, DISCECTOMY: PORTIONS OF CARTILAGINOUS TISSUE WITH DEGENERATIVE CHANGE. Electronically Signed Laurie Hernandez M.D. Gross Description A. Received fresh labeled "removed hardware," are 2 rice metallic rods measuring 8.1 and 8.7 centimeters in greatest dimension. There are 2 martins plastic portions of hardware measuring 1.8 and 2.4 cm in greatest dimension as well as 11 rice metallic screws ranging from 0.4-6.0 cm in length. Separately received within the same container is a 1.9 x 1.6 x 0.3 cm aggregate of martins-red bone fragments. The bone fragments are entirely submitted in one cassette, following decalcification. B. Received in formalin labeled "disc L3-S1," is a 5.3 x 4.0 x 0.4 cm aggregate of martins fragments of fibrocartilaginous tissue. A credit resolution representative portion is submitted in one cassette. 04/10/2020 saudi04/10/2020
--- NOTE | 2020-04-11 19:33 | PN ---
Physical Exam: SUBJECTIVE: Patient seen and examined. Stated that pain is improved today. Rated 2/10 on my examination. Did not tolerate PT yesterday. OBJECTIVE: Vital Signs Period Temp Pulse Resp BP Sys/Lepe Pulse Ox Last 24 Hr 98.2 F-98.7 F 72-87 15-20 125-145/54-78 100-100 GENERAL: The patient is awake, in no acute distress. HEENT: LUNGS: Breath sounds equal, clear to auscultation bilaterally, no wheezes HEART: Regular rate and rhythm, S1, S2 without murmur ABDOMEN: Soft, nontender, nondistended, bowel sounds present in all 4 quadrants EXTREMITIES: warm, well-perfused, no edema. Able to move all extremities spontaneously. SKIN: Warm, dry,surgical site clean, dry and intact. Laboratory Last Values WBC 19.9 K/mm3 (4.0-10.0) H 04/11/20 05:45 RBC 3.45 M/mm3 (3.60-5.2) L 04/11/20 05:45 Hgb 9.2 GM/dL (10.7-15.3) L 04/11/20 05:45 Hct 29.0 % (32.4-45.2) L D 04/11/20 05:45 MCV 84.2 fl (80-96) 04/11/20 05:45 MCH 26.6 pg (25.7-33.7) 04/11/20 05:45 MCHC 31.6 g/dl (32.0-36.0) L 04/11/20 05:45 RDW 13.3 % (11.6-15.6) 04/11/20 05:45 Plt Count 265 K/MM3 (134-434) 04/11/20 05:45 MPV 8.1 fl (7.5-11.1) 04/11/20 05:45 Absolute Neuts (auto) 17.3 K/mm3 (1.5-8.0) H 04/11/20 05:45 Neutrophils % 86.7 % (42.8-82.8) H 04/11/20 05:45 Lymphocytes % 7.1 % (8-40) L 04/11/20 05:45 Monocytes % 5.7 % (3.8-10.2) 04/11/20 05:45 Eosinophils % 0.1 % (0-4.5) 04/11/20 05:45 Basophils % 0.4 % (0-2.0) 04/11/20 05:45 Nucleated RBC % 0 % (0-0) 04/11/20 05:45 Sodium 137 mmol/L (136-145) 04/11/20 05:45 Potassium 4.2 mmol/L (3.5-5.1) 04/11/20 05:45 Chloride 103 mmol/L (98-107) 04/11/20 05:45 Carbon Dioxide 29 mmol/L (21-32) 04/11/20 05:45 Anion Gap 5 MMOL/L (8-16) L 04/11/20 05:45 BUN 8.6 mg/dL (7-18) 04/11/20 05:45 Creatinine 0.6 mg/dL (0.55-1.3) 04/11/20 05:45 Est GFR (CKD-EPI)AfAm 101.90 04/11/20 05:45 Est GFR (CKD-EPI)NonAf 87.92 04/11/20 05:45 Random Glucose 89 mg/dL (74-106) 04/11/20 05:45 Calcium 8.8 mg/dL (8.5-10.1) 04/11/20 05:45 Phosphorus 2.1 mg/dL (2.5-4.9) L 04/11/20 05:45 Magnesium 1.8 mg/dL (1.8-2.4) 04/11/20 05:45 Total Bilirubin 0.7 mg/dL (0.2-1) 04/11/20 05:45 AST 20 U/L (15-37) 04/11/20 05:45 ALT 11 U/L (13-61) L 04/11/20 05:45 Alkaline Phosphatase 71 U/L (45-117) 04/11/20 05:45 Total Protein 5.6 g/dl (6.4-8.2) L 04/11/20 05:45 Albumin 2.1 g/dl (3.4-5.0) L 04/11/20 05:45 Blood Type O POSITIVE 04/09/20 08:30 Antibody Screen Negative 04/09/20 06:08 Active Medications Citalopram Hydrobromide (Celexa -) 20 mg PO [facility] Last Admin: 04/10/20 21:44 Dose: 20 mg Documented by: Diazepam (Valium -) 2 mg PO Q8H PRN PRN Reason: MUSCLE SPASMS Lactated Ringer's (Lactated Ringers Solution) 1,000 mls @ 125 mls/hr IV ASDIR [facility] Last Admin: 04/11/20 06:21 Dose: 125 mls/hr Documented by: Losartan Potassium (Cozaar -) 25 mg PO DAILY [facility] Last Admin: 04/11/20 10:43 Dose: 25 mg Documented by: Mirtazapine (Remeron -) 7.5 mg PO [facility] Last Admin: 04/10/20 21:45 Dose: 7.5 mg Documented by: Ondansetron HCl (Zofran Injection) 4 mg IVPUSH Q6H PRN PRN Reason: NAUSEA AND/OR VOMITING Oxycodone HCl (Roxicodone -) 10 mg PO Q4H PRN PRN Reason: PAIN LEVEL 6-10 Last Admin: 04/10/20 01:59 Dose: 10 mg Documented by: Oxycodone HCl (Roxicodone -) 5 mg PO Q4H PRN PRN Reason: PAIN LEVEL 1-5 Last Admin: 04/11/20 06:21 Dose: 5 mg Documented by: ASSESSMENT/PLAN: Patient is a 79 year old female with history of dementia, hypertension, spinal stenosis s/p removal of L3-L5 hardware, including L4-L5 intervertebral cage, L3- S1 laminectomy, L5-S1 PLIF, L3-S1 posterior instrumented spinal fusion. Post-op day #2. Surgical site clean, dry and intact. Stated that her pain is improved. Neurologic History of dementia, depression -Continue home Mirtazapine, Citalopram -Monitor for signs of mental status changes Pulmonary -Currently saturating well, without respiratory distress. -Encouraged Incentive spirometer q15 minutes -Monitor for change in oxygen requirements, respiratory distress Cardiovascular History of hypertension -Losartan 25mg PO daily -Labetalol 10mg IV push for systolic BP greater than 160mmHg Musculoskeletal S/P removal of L3-L5 hardware, including L4-L5 intervertebral cage, L3-S1 laminectomy, L5-S1 PLIF, L3-S1 posterior instrumented spinal fusion. -Pain control with Oxycodone, Morphine. NO NSAIDs per orthopedic surgery -Physical therapy -Orthopedic surgery evaluated pt. Recommends OOB to chair. Advance diet to clear liquids. Gastrointestinal -Gentle hydration with IV normal saline at 50mL/ hour -Zofran for nausea ID -WBC 19.9, afebrile. Will continue to trend. If uptrending WBC and febrile, will send blood cx, urine cx, UA. -If diarrhea, will send stool for C. diff. FEN -Lactated ringers 125 ml/hr -NS at 50 mL/hr -Advance diet to clears Prophylaxis -SCDs bilateral lower extremities Family discussion -As per jana, pt is legally blind. Disposition: Continue ICU monitoring. Visit type - Emergency Visit Emergency Visit: Yes ED Registration Date: 04/09/20 Care time: The patient presented to the Emergency Department on the above date and was hospitalized for further evaluation of their emergent condition. - New Patient This patient is new to me today: No - Critical Care Critical Care patient: Yes Total Critical Care Time (in minutes): 35 Critical Care Statement: The care of this patient involved high complexity decision making to prevent further life threatening deterioration of the patient's condition and/or to evaluate & treat vital organ system(s) failure or risk of failure. ATTENDING PHYSICIAN STATEMENT I saw and evaluated the patient. I reviewed the resident's note and discussed the case with the resident. I agree with the resident's findings and plan as documented. SUBJECTIVE: OBJECTIVE: ASSESSMENT AND PLAN:
[2020-04-11] MEDS: MIRTAZAPINE 15 MG TABLET (FP) PO SCH (21:15)
[2020-04-11] MEDS: CITALOPRAM HYDROBROMIDE 20 MG TABLET PO SCH (21:16)
[2020-04-12 09:05] LABS: BASO % 0.5 % (0-2.0); EOS % 0.5 % (0-4.5); HEMATOCRIT 32.8 % (32.4-45.2); HEMOGLOBIN 10.4 GM/dL (10.7-15.3); LYMPH % 6.8 % (8-40); MCH 27.2 pg (25.7-33.7); MCHC 31.6 g/dl (32.0-36.0); MEAN CELL VOLUME 86.1 fl (80-96); MEAN PLT VOLUME 8.6 fl (7.5-11.1); NEUT % 86.2 % (42.8-82.8); PLATELET COUNT 246 K/MM3 (134-434); RBC 3.81 M/mm3 (3.60-5.2); RDW 13.6 % (11.6-15.6); WHITE BLOOD COUNT 19.3 K/mm3 (4.0-10.0)
[2020-04-12] MEDS: LOSARTAN POTASSIUM 25 MG TABLET PO SCH (09:19)
[2020-04-12 09:41] LABS: ALBUMIN 2.1 g/dl (3.4-5.0); BILIRUBIN,TOTAL 0.4 mg/dL (0.2-1); BLOOD UREA NITROGEN 10.6 mg/dL (7-18); CALCIUM 9.1 mg/dL (8.5-10.1); CREATININE 0.6 mg/dL (0.55-1.3); MAGNESIUM 1.9 mg/dL (1.8-2.4); POTASSIUM 4.2 mmol/L (3.5-5.1)
--- NOTE | 2020-04-12 10:06 | PN ---
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 (short form) - Note 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: 79F s/p removal of hardware L3-L5 (including L4-L5 intervertebral cage), inspection of fusion mass, L3-S1 laminectomies, L5-S1 PLIF, L3-S1 posterior instrumented spinal fusion POD #1. Pain well controlled. No acute events overnight. Pt. comfortable in bed. Pt. denies overnight history of headaches, chest pain, shortness of breath, nausea, vomiting, chills, & sweats. (+) [place]; (-) Flatus; (-) BM. No PT yet. Abdomen soft, mildly distended, no bowel sounds yet. PE: AAO x 3, NAD. L-Spine: Incision, dressing C/D/I. B/L LE Motor & Sensory: Fully intact. 79F s/p removal of hardware L3-L5 (including L4-L5 intervertebral cage), inspection of fusion mass, L3-S1 laminectomies, L5-S1 PLIF, L3-S1 posterior instrumented spinal fusion POD #1. -Pain control: NO NSAID's; patient received intra-op paraspinal muscle block w/Exparel & marcaine; OK to use ASSISTANT PROFESSOR OF BUSINESS if needed; transition to oral analgesia post-op. -DVT PPx: -Mechanical only: LITA's, SCD's. -Chemical: None. -Incentive spirometry q15 min. -NPO until flatus. -[place] care; d/c when ambulating. -PT/OT/Rehab, OOB. -WBAT B/L LE. -No bending, lifting (>5 lbs), or twisting for 9-12 months. -Care per ICU & medical hospitalist teams. -Discharge planning: Ubaldo gutierrez; f/u 7-10 days after rehab discharge at [facility] office; call for appointment; . -Will follow. Seth Cuenca MD (Orthopaedic Surgery).
--- NOTE | 2020-04-12 10:07 | PN ---
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 (short form) - Note 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: 79F s/p removal of hardware L3-L5 (including L4-L5 intervertebral cage), inspection of fusion mass, L3-S1 laminectomies, L5-S1 PLIF, L3-S1 posterior instrumented spinal fusion POD #2. Pain well controlled. No acute events overnight. Pt. comfortable in bed; was out of bed to chair today. Pt. denies overnight history of headaches, chest pain, shortness of breath, nausea, vomiting, chills, & sweats. (+) [place]; (-) Flatus; (-) BM. Abdomen soft, mildly distended, no bowel sounds yet. PE: AAO x 3, NAD. L-Spine: Incision, dressing C/D/I. B/L LE Motor & Sensory: Fully intact. 79F s/p removal of hardware L3-L5 (including L4-L5 intervertebral cage), inspection of fusion mass, L3-S1 laminectomies, L5-S1 PLIF, L3-S1 posterior instrumented spinal fusion POD #2. -Pain control: NO NSAID's; patient received intra-op paraspinal muscle block w/Exparel & marcaine; OK to use [employer] if needed; transition to oral analgesia post -op. -DVT PPx: -Mechanical only: LITA's, SCD's. -Chemical: None. -Incentive spirometry q15 min. -Liquid diet; may advance when (+) flatus or BM. -[place] care; d/c when ambulating. -PT/OT/Rehab, OOB. -WBAT B/L LE. -No bending, lifting (>5 lbs), or twisting for 9-12 months. -Care per ICU & medical hospitalist teams. -Discharge planning: Ubaldo gutierrez; f/u 7-10 days after rehab discharge at [facility] office; call for appointment; . -Will follow. Seth Cuenca MD (Orthopaedic Surgery).
[2020-04-12 11:04] LABS: PLATELET ESTIMATE NORMAL
--- NOTE | 2020-04-12 11:21 | PN ---
Teaching Attending Note Name of Resident: Katheryn Alexis ATTENDING PHYSICIAN STATEMENT I saw and evaluated the patient. I reviewed the resident's note and discussed the case with the resident. I agree with the resident's findings and plan as documented. SUBJECTIVE: Pt seen and examined in the ICU. Pain better controlled. Tolerating PO. Unable to tolerate PT yesterday. OBJECTIVE: Vital Signs Period Temp Pulse Resp BP Sys/Lepe Pulse Ox Last 24 Hr 98.1 F-98.5 F 59-75 13-18 109-144/47-78 100-100 Intake & Output 04/09/20 04/10/20 04/11/20 04/12/20 23:59 23:59 23:59 23:59 Intake Total 2925 3250 1970 Output Total 565 1350 1850 500 Balance 2360 1900 120 -500 Weight 61.235 kg Gen: NAD at rest Heart: RRR Lung: decreased breath sounds at the bases Abd: soft, nontender Ext: no edema CBC, BMP 04/12/20 08:40 04/12/20 08:40 Active Medications Citalopram Hydrobromide (Celexa -) 20 mg PO [facility] Last Admin: 04/11/20 21:16 Dose: 20 mg Documented by: Diazepam (Valium -) 2 mg PO Q8H PRN PRN Reason: MUSCLE SPASMS Lactated Ringer's (Lactated Ringers Solution) 1,000 mls @ 125 mls/hr IV ASDIR [facility] Last Admin: 04/11/20 21:09 Dose: Not Given Documented by: Losartan Potassium (Cozaar -) 25 mg PO DAILY [facility] Last Admin: 04/12/20 09:19 Dose: 25 mg Documented by: Mirtazapine (Remeron -) 7.5 mg PO [facility] Last Admin: 04/11/20 21:15 Dose: 7.5 mg Documented by: Ondansetron HCl (Zofran Injection) 4 mg IVPUSH Q6H PRN PRN Reason: NAUSEA AND/OR VOMITING Oxycodone HCl (Roxicodone -) 10 mg PO Q4H PRN PRN Reason: PAIN LEVEL 6-10 Last Admin: 04/11/20 21:16 Dose: 10 mg Documented by: Oxycodone HCl (Roxicodone -) 5 mg PO Q4H PRN PRN Reason: PAIN LEVEL 1-5 Last Admin: 04/11/20 06:21 Dose: 5 mg Documented by: ASSESSMENT AND PLAN: Lumbar Spinal Stenosis s/p Removal of L3-L5 hardware, including L4-L5 intervertebral cage, L3-S1 laminectomy, L5-S1 PLIF, L3-S1 posterior instrumented spinal fusion HTN - pain control - incentive spirometry - rehab/PT - DVT prophylaxis - can monitor on floor
[2020-04-12] MEDS: oxyCODONE HCL 5 MG TABLET PO PRN (11:23)
[2020-04-12] MEDS: LACTATED RINGERS SOLUTION 1,000 ML IV SCH (15:00)
--- NOTE | 2020-04-12 16:28 | PN ---
Physical Exam: SUBJECTIVE: Patient seen and examined. Post-op day #3. Surgical site clean, dry and intact. Stated that her pain is improved. Able to tolerate liquid diet. Able to sit with PT. OBJECTIVE: Vital Signs Period Temp Pulse Resp BP Sys/Lepe Pulse Ox Last 24 Hr 98.1 F-98.8 F 59-75 13-18 103-151/44-88 100-100 GENERAL: The patient is awake and in no acute distress. HEENT:NCAT. LUNGS: Breath sounds equal, clear to auscultation bilaterally HEART: Regular rate and rhythm, S1, S2 without murmur ABDOMEN: Soft, nontender, nondistended, bowel sounds present in all quadrants EXTREMITIES: warm, well-perfused, no edema. SKIN: Warm, dry, surgical site clean, dry, intact. Laboratory Last Values WBC 19.3 K/mm3 (4.0-10.0) H 04/12/20 08:40 RBC 3.81 M/mm3 (3.60-5.2) 04/12/20 08:40 Hgb 10.4 GM/dL (10.7-15.3) L 04/12/20 08:40 Hct 32.8 % (32.4-45.2) 04/12/20 08:40 MCV 86.1 fl (80-96) 04/12/20 08:40 MCH 27.2 pg (25.7-33.7) 04/12/20 08:40 MCHC 31.6 g/dl (32.0-36.0) L 04/12/20 08:40 RDW 13.6 % (11.6-15.6) 04/12/20 08:40 Plt Count 246 K/MM3 (134-434) 04/12/20 08:40 MPV 8.6 fl (7.5-11.1) 04/12/20 08:40 Absolute Neuts (auto) 16.6 K/mm3 (1.5-8.0) H 04/12/20 08:40 Neutrophils % 86.2 % (42.8-82.8) H 04/12/20 08:40 Lymphocytes % 6.8 % (8-40) L 04/12/20 08:40 Monocytes % 6.0 % (3.8-10.2) 04/12/20 08:40 Eosinophils % 0.5 % (0-4.5) D 04/12/20 08:40 Basophils % 0.5 % (0-2.0) 04/12/20 08:40 Nucleated RBC % 0 % (0-0) 04/12/20 08:40 Platelet Estimate Normal 04/12/20 08:40 Platelet Comment Present 04/12/20 08:40 Sodium 135 mmol/L (136-145) L 04/12/20 08:40 Potassium 4.2 mmol/L (3.5-5.1) 04/12/20 08:40 Chloride 101 mmol/L (98-107) 04/12/20 08:40 Carbon Dioxide 26 mmol/L (21-32) 04/12/20 08:40 Anion Gap 8 MMOL/L (8-16) 04/12/20 08:40 BUN 10.6 mg/dL (7-18) 04/12/20 08:40 Creatinine 0.6 mg/dL (0.55-1.3) 04/12/20 08:40 Est GFR (CKD-EPI)AfAm 101.90 04/12/20 08:40 Est GFR (CKD-EPI)NonAf 87.92 04/12/20 08:40 Random Glucose 82 mg/dL (74-106) 04/12/20 08:40 Calcium 9.1 mg/dL (8.5-10.1) 04/12/20 08:40 Phosphorus 3.0 mg/dL (2.5-4.9) 04/12/20 08:40 Magnesium 1.9 mg/dL (1.8-2.4) 04/12/20 08:40 Total Bilirubin 0.4 mg/dL (0.2-1) 04/12/20 08:40 AST 20 U/L (15-37) 04/12/20 08:40 ALT 11 U/L (13-61) L 04/12/20 08:40 Alkaline Phosphatase 92 U/L (45-117) 04/12/20 08:40 Total Protein 6.0 g/dl (6.4-8.2) L 04/12/20 08:40 Albumin 2.1 g/dl (3.4-5.0) L 04/12/20 08:40 Blood Type O POSITIVE 04/09/20 08:30 Antibody Screen Negative 04/09/20 06:08 Active Medications Citalopram Hydrobromide (Celexa -) 20 mg PO HS [facility] Last Admin: 04/11/20 21:16 Dose: 20 mg Documented by: Lactated Ringer's (Lactated Ringers Solution) 1,000 mls @ 125 mls/hr IV ASDIR [facility] Last Admin: 04/11/20 21:09 Dose: Not Given Documented by: Losartan Potassium (Cozaar -) 25 mg PO DAILY [facility] Last Admin: 04/12/20 09:19 Dose: 25 mg Documented by: Mirtazapine (Remeron -) 7.5 mg PO HS [facility] Last Admin: 04/11/20 21:15 Dose: 7.5 mg Documented by: Ondansetron HCl (Zofran Injection) 4 mg IVPUSH Q6H PRN PRN Reason: NAUSEA AND/OR VOMITING ASSESSMENT/PLAN: Patient is a 79 year old female with history of dementia, hypertension, spinal stenosis admitted for removal of L3-L5 hardware, including L4-L5 intervertebral cage, L3-S1 laminectomy, L5-S1 PLIF, L3-S1 posterior instrumented spinal fusion. Pt post-op with elevated WBC count to 23, downtrending and pt afebrile and off antibiotics. Pt passing urine and flatus. Tolerating diet. Reinstated on home Mirtazapine, Citalopram, losartan, labetolol. Pain controlled with morphine, acetominophen. Pt able to sit with PT. Pt optimized to medical-surgical floor. Visit type - Emergency Visit Emergency Visit: Yes ED Registration Date: 04/09/20 Care time: The patient presented to the Emergency Department on the above date and was hospitalized for further evaluation of their emergent condition. - New Patient This patient is new to me today: No - Critical Care Critical Care patient: Yes Total Critical Care Time (in minutes): 36 Critical Care Statement: The care of this patient involved high complexity decision making to prevent further life threatening deterioration of the patient's condition and/or to evaluate & treat vital organ system(s) failure or risk of failure. ATTENDING PHYSICIAN STATEMENT I saw and evaluated the patient. I reviewed the resident's note and discussed the case with the resident. I agree with the resident's findings and plan as documented. SUBJECTIVE: OBJECTIVE: ASSESSMENT AND PLAN:
[2020-04-12] MEDS ORDERED: oxyCODONE HCL 5 MG TABLET PO ONE (19:12)
[2020-04-12] MEDS ORDERED: PT OWN MED DRAWER 7, Y5N ONE (19:20)
[2020-04-12] MEDS: MIRTAZAPINE 15 MG TABLET (FP) PO SCH (21:36)
[2020-04-12] MEDS: CITALOPRAM HYDROBROMIDE 20 MG TABLET PO SCH (21:36)
[2020-04-13] MEDS ORDERED: MORPHINE SULFATE 2 MG/ML VIAL IVPUSH ONE ×2 (07:20→17:25)
[2020-04-13] MEDS ORDERED: ACETAMINOPHEN 1000 MG/100 ML VIAL (NON FORMULARY) IVPB ONE (07:20)
--- NOTE | 2020-04-13 08:29 | PN ---
Physical Exam: SUBJECTIVE: Patient seen and examined Patient seen and examined. Post-op day #4. Surgical site clean, dry and intact. Dressing with some serosanguineous drainage; changed by nurse. Pt with generalized moderate pain this morning, but endorses current pain meds making her nauseous; will change prn pain regimen. OBJECTIVE: GENERAL: The patient is awake and in no acute distress. HEENT:NCAT. LUNGS: Breath sounds equal, clear to auscultation bilaterally HEART: Regular rate and rhythm, S1, S2 without murmur ABDOMEN: Soft, nontender, nondistended, bowel sounds present in all quadrants EXTREMITIES: warm, well-perfused, no edema; no tenderness to palpation of all joints SKIN: Warm, dry, surgical site clean, dry, intact. Vital Signs Period Temp Pulse Resp BP Sys/Lepe Pulse Ox Last 24 Hr 98.1 F-99.1 F 64-98 13-26 103-146/44-88 93-100 Laboratory Results - last 24 hr 04/12/20 04/12/20 08:40 08:40 WBC 19.3 H RBC 3.81 Hgb 10.4 L Hct 32.8 MCV 86.1 MCH 27.2 MCHC 31.6 L RDW 13.6 Plt Count 246 MPV 8.6 Absolute Neuts (auto) 16.6 H Neutrophils % 86.2 H Lymphocytes % 6.8 L Monocytes % 6.0 Eosinophils % 0.5 D Basophils % 0.5 Nucleated RBC % 0 Platelet Estimate Normal Platelet Comment Present Sodium 135 L Potassium 4.2 Chloride 101 Carbon Dioxide 26 Anion Gap 8 BUN 10.6 Creatinine 0.6 Est GFR (CKD-EPI)AfAm 101.90 Est GFR (CKD-EPI)NonAf 87.92 Random Glucose 82 Calcium 9.1 Phosphorus 3.0 Magnesium 1.9 Total Bilirubin 0.4 AST 20 ALT 11 L Alkaline Phosphatase 92 Total Protein 6.0 L Albumin 2.1 L Active Medications Generic Name Dose Route Start Last Admin Trade Name Freq PRN Reason Stop Dose Admin Citalopram Hydrobromide 20 mg 04/09/20 22:00 04/12/20 21:36 Celexa - PO 20 mg HS JAYE Administration Losartan Potassium 25 mg 04/10/20 10:00 04/12/20 09:19 Cozaar - PO 25 mg DAILY JAYE Administration Mirtazapine 7.5 mg 04/09/20 22:00 04/12/20 21:36 Remeron - PO 7.5 mg HS JAYE Administration Ondansetron HCl 4 mg 04/09/20 13:57 Zofran Injection IVPUSH Q6H PRN NAUSEA AND/OR VOMITING ASSESSMENT/PLAN: Patient is a 79 year old female with history of dementia, hypertension, spinal stenosis s/p removal of L3-L5 hardware, including L4-L5 intervertebral cage, L3- S1 laminectomy, L5-S1 PLIF, L3-S1 posterior instrumented spinal fusion. Post-op day #4. Surgical site clean, dry and intact. Neurologic History of dementia, depression -Continue home Mirtazapine, Citalopram -Monitor for signs of mental status changes Pulmonary -Currently saturating well, without respiratory distress. -Encouraged Incentive spirometer -Monitor for change in oxygen requirements, respiratory distress Cardiovascular History of hypertension -Losartan 25mg PO daily -Labetalol 10mg IV push for systolic BP greater than 160mmHg Musculoskeletal S/P removal of L3-L5 hardware, including L4-L5 intervertebral cage, L3-S1 laminectomy, L5-S1 PLIF, L3-S1 posterior instrumented spinal fusion. -Pain control with IV tylenol PRN, Morphine prn if refractory to tylenol. No NSAIDs per orthopedic surgery. -Physical therapy -Orthopedic surgery evaluated pt. Recommends OOB to chair. Advance diet to clear liquids. Gastrointestinal -Zofran for nausea ID -WBC 16.4 (downtrending), afebrile. Will continue to trend. If uptrending WBC and febrile, will send blood cx, urine cx, UA. -If diarrhea, will send stool for C. diff. FEN -Lactated ringers 42 ml/hr; as pt is not eating/drinking much by mount -Clear liquid diet; may advance to full liquid diet Prophylaxis -SCDs bilateral lower extremities Family discussion -As per niece, pt is legally blind. Disposition: Continue ICU monitoring. Visit type - Emergency Visit Emergency Visit: Yes ED Registration Date: 04/09/20 Care time: The patient presented to the Emergency Department on the above date and was hospitalized for further evaluation of their emergent condition. - New Patient This patient is new to me today: No - Critical Care Critical Care patient: Yes Total Critical Care Time (in minutes): 38 Critical Care Statement: The care of this patient involved high complexity decision making to prevent further life threatening deterioration of the patient's condition and/or to evaluate & treat vital organ system(s) failure or risk of failure. ATTENDING PHYSICIAN STATEMENT I saw and evaluated the patient. I reviewed the resident's note and discussed the case with the resident. I agree with the resident's findings and plan as documented. SUBJECTIVE: OBJECTIVE: ASSESSMENT AND PLAN:
[2020-04-13 08:43] LABS: BASO % 0.9 % (0-2.0); EOS % 0.4 % (0-4.5); HEMATOCRIT 27.7 % (32.4-45.2); LYMPH % 6.2 % (8-40); MCH 27.4 pg (25.7-33.7); MCHC 32.3 g/dl (32.0-36.0); MEAN CELL VOLUME 84.8 fl (80-96); MONO % 4.8 % (3.8-10.2); NEUT % 87.7 % (42.8-82.8); PLATELET COUNT 343 K/MM3 (134-434); RBC 3.27 M/mm3 (3.60-5.2); RDW 13.2 % (11.6-15.6); WHITE BLOOD COUNT 16.4 K/mm3 (4.0-10.0)
[2020-04-13 09:19] LABS: ALBUMIN 2.1 g/dl (3.4-5.0); BILIRUBIN,TOTAL 0.5 mg/dL (0.2-1); BLOOD UREA NITROGEN 10.4 mg/dL (7-18); CREATININE 0.6 mg/dL (0.55-1.3); MAGNESIUM 1.8 mg/dL (1.8-2.4); PHOSPHOROUS 2.2 mg/dL (2.5-4.9); TOT PROT 5.9 g/dl (6.4-8.2)
[2020-04-13] MEDS: LOSARTAN POTASSIUM 25 MG TABLET PO SCH (09:43)
[2020-04-13] MEDS ORDERED: NAPH,MB-DB/K PH,MBDB POWDER PACKET PO ONE (13:08)
[2020-04-13] MEDS: LACTATED RINGERS SOLUTION 1,000 ML/1,000 ML INFUS.BAG IV SCH (14:11)
--- NOTE | 2020-04-13 15:31 | PN ---
Teaching Attending Note Name of Resident: Daysi Duncan ATTENDING PHYSICIAN STATEMENT I saw and evaluated the patient. I reviewed the resident's note and discussed the case with the resident. I agree with the resident's findings and plan as documented. SUBJECTIVE: Patient seen and examined in the ICU. Pain seems better controlled. Tolerating PO. Unable to tolerate PT yesterday. OBJECTIVE: Intake & Output 04/10/20 04/11/20 04/12/20 04/13/20 23:59 23:59 23:59 23:59 Intake Total 3250 1970 1700 Output Total 1350 1850 500 600 Balance 1900 120 -500 1100 Weight 135 lb Last Vital Signs Temp Pulse Resp BP Pulse Ox 98.6 F 88 15 138/62 93 L 04/13/20 10:00 04/13/20 14:00 04/13/20 14:00 04/13/20 14:00 04/13/20 09:00 Active Medications Citalopram Hydrobromide (Celexa -) 20 mg PO [facility] Last Admin: 04/12/20 21:36 Dose: 20 mg Documented by: Lactated Ringer's (Lactated Ringers Solution) 1,000 ml in 1,000 mls @ 42 mls/hr IV ASDIR [facility] Last Admin: 04/13/20 14:11 Dose: 42 mls/hr Documented by: Losartan Potassium (Cozaar -) 25 mg PO DAILY [facility] Last Admin: 04/13/20 09:43 Dose: 25 mg Documented by: Mirtazapine (Remeron -) 7.5 mg PO [facility] Last Admin: 04/12/20 21:36 Dose: 7.5 mg Documented by: Ondansetron HCl (Zofran Injection) 4 mg IVPUSH Q6H PRN PRN Reason: NAUSEA AND/OR VOMITING Gen: NAD at rest Heart: RRR Lung: decreased breath sounds at the bases Abd: soft, nontender Ext: no edema Laboratory Results - last 24 hr 04/13/20 04/13/20 08:20 08:20 WBC 16.4 H RBC 3.27 L Hgb 9.0 L Hct 27.7 L D MCV 84.8 MCH 27.4 MCHC 32.3 RDW 13.2 Plt Count 343 D MPV 8.0 Absolute Neuts (auto) 14.4 H Neutrophils % 87.7 H Lymphocytes % 6.2 L Monocytes % 4.8 Eosinophils % 0.4 Basophils % 0.9 Nucleated RBC % 0 Sodium 137 Potassium 4.0 Chloride 102 Carbon Dioxide 27 Anion Gap 9 BUN 10.4 Creatinine 0.6 Est GFR (CKD-EPI)AfAm 101.90 Est GFR (CKD-EPI)NonAf 87.92 Random Glucose 78 Calcium 9.0 Phosphorus 2.2 L Magnesium 1.8 Total Bilirubin 0.5 AST 22 ALT 14 Alkaline Phosphatase 102 Total Protein 5.9 L Albumin 2.1 L ASSESSMENT AND PLAN: Lumbar Spinal Stenosis POD #4: S/P Removal of L3-L5 hardware, including L4-L5 intervertebral cage, L3- S1 laminectomy, L5-S1 PLIF, L3-S1 posterior instrumented spinal fusion HTN - pain control - incentive spirometry - rehab/PT - DVT prophylaxis - can monitor on floor Dr Almazan
[2020-04-13] MEDS ORDERED: MORPHINE SULFATE 2 MG/ML VIAL ONE (17:26)
[2020-04-13] MEDS ORDERED: PT OWN MED DRAWER 7, Y5N ONE (21:07)
[2020-04-13] MEDS: CITALOPRAM HYDROBROMIDE 20 MG TABLET PO SCH (21:18)
[2020-04-13] MEDS: MIRTAZAPINE 15 MG TABLET (FP) PO SCH (21:18)
[2020-04-13] MEDS ORDERED: ONDANSETRON 4 MG/2 ML VIAL IVPUSH PRN (22:31)
[2020-04-14] MEDS: ACETAMINOPHEN 325 MG TABLET (FP) PO PRN ×2 (06:17→21:21)
[2020-04-14 08:46] LABS: HEMATOCRIT 25.2 % (32.4-45.2); HEMOGLOBIN 8.3 GM/dL (10.7-15.3); MCH 27.8 pg (25.7-33.7); MEAN CELL VOLUME 84.2 fl (80-96); MEAN PLT VOLUME 7.7 fl (7.5-11.1); PLATELET COUNT 330 K/MM3 (134-434); RDW 13.3 % (11.6-15.6); WHITE BLOOD COUNT 11.4 K/mm3 (4.0-10.0)
[2020-04-14 09:11] LABS: ALBUMIN 1.9 g/dl (3.4-5.0); BILIRUBIN,TOTAL 0.5 mg/dL (0.2-1); CALCIUM 8.8 mg/dL (8.5-10.1); MAGNESIUM 1.7 mg/dL (1.8-2.4); POTASSIUM 3.5 mmol/L (3.5-5.1); TOT PROT 5.5 g/dl (6.4-8.2)
[2020-04-14 09:15] LABS: CREATININE 0.5 mg/dL (0.55-1.3); PHOSPHOROUS 2.9 mg/dL (2.5-4.9)
[2020-04-14] MEDS: LOSARTAN POTASSIUM 25 MG TABLET PO SCH (10:50)
--- NOTE | 2020-04-14 14:46 | PN ---
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 (short form) - Note 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: 79F s/p removal of hardware L3-L5 (including L4-L5 intervertebral cage), inspection of fusion mass, L3-S1 laminectomies, L5-S1 PLIF, L3-S1 posterior instrumented spinal fusion POD #5. Pain well controlled. No acute events overnight. Pt. denies overnight history of headaches, chest pain, shortness of breath, nausea, vomiting, chills, & sweats. (+) [place]; (+) Flatus; (-) BM. Abdomen soft, mildly distended, no bowel sounds yet. Pt. globally deconditioned due to prolonged bedridden pre-op. All labs, vitals reviewed. PE: AAO x 3, NAD. L-Spine: Incision, dressing w/serosanguinous drainage. B/L LE Motor & Sensory: Fully intact. 79F s/p removal of hardware L3-L5 (including L4-L5 intervertebral cage), inspection of fusion mass, L3-S1 laminectomies, L5-S1 PLIF, L3-S1 posterior instrumented spinal fusion POD #5. -Pain control. -DVT PPx: -Mechanical only: LITA's, SCD's. -Chemical: None. -Incentive spirometry q15 min. -Advance diet as tolerated. -[place] care; d/c when comfortably ambulating. -PT/OT/Rehab, OOB. -WBAT B/L LE. -No bending, lifting (>5 lbs), or twisting for 9-12 months. -Care per ICU & medical hospitalist teams. -Discharge planning: WILLIAM gutierrez; f/u 7-10 days after rehab discharge at [facility] office; call for appointment; . -Will follow. Seth Cuenca MD (Orthopaedic Surgery).
[2020-04-14] MEDS: LACTATED RINGERS SOLUTION 1,000 ML/1,000 ML INFUS.BAG IV SCH (15:13)
[2020-04-14] MEDS ORDERED: MAGNESIUM OXIDE 400 MG TABLET (FP) PO ONE (17:00)
[2020-04-14] MEDS ORDERED: POTASSIUM CHLORIDE TABS 20 MEQ TABLET.ER (FP) PO ONE (17:00)
--- NOTE | 2020-04-14 17:09 | PN ---
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, Physician History of Present Illness: seen and examined at bedside during my rounds. She endorses her pain is well controlled. She is tolerating solid foods. She denies nausea vomiting fever chills chest pain or SOB. - Current Medication List Current Medications: Active Medications Acetaminophen (Tylenol -) 650 mg PO Q6H PRN PRN Reason: Fever Or Pain Last Admin: 04/14/20 06:17 Dose: 650 mg Documented by: Citalopram Hydrobromide (Celexa -) 20 mg PO HS [facility] Lactated Ringer's (Lactated Ringers Solution) 1,000 ml in 1,000 mls @ 42 mls/hr IV ASDIR [facility] Last Admin: 04/14/20 15:13 Dose: 42 mls/hr Documented by: Losartan Potassium (Cozaar -) 25 mg PO DAILY [facility] Last Admin: 04/14/20 10:50 Dose: 25 mg Documented by: Mirtazapine (Remeron -) 7.5 mg PO HS [facility] Ondansetron HCl (Zofran Injection) 4 mg IVPUSH Q6H PRN PRN Reason: NAUSEA AND/OR VOMITING - Objective Vital Signs: Vital Signs Temperature 97.4 F L 04/14/20 15:03 Pulse Rate 69 04/14/20 15:03 Respiratory Rate 20 04/14/20 15:03 Blood Pressure 151/64 04/14/20 15:03 O2 Sat by Pulse Oximetry (%) 100 04/14/20 09:00 Constitutional: Yes: No Distress, Calm Eyes: Yes: Other (conjunctival pallor) HENT: Yes: Other (moist oral mucosa) Cardiovascular: Yes: Regular Rate and Rhythm Respiratory: Yes: Rales (bilaterally at the bases.) Gastrointestinal: Yes: WNL, Normal Bowel Sounds, Soft. No: Distention, Tenderness Edema: No Wound/Incision: Yes: Other (serosangenous drainage...more serous per RN Dr. Joellen mendez.) Neurological: Yes: Alert, Other (sensation intact globally. 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 spinal stenosis POD #5 s/p removal of L3-L5 hardware, including L4-L5 intervertebral cage, L3-S1 laminectomy, L5-S1 PLIF, L3-S1 posterior instrumented spinal fusion. pain control monitor output monitor CBC. Hb 8.3. It was 11.8 pre-op and 10.4 day after Sx. Now 8.3. has been trending down everyday. Transfuse PRN Physical therapy Zofran PRN nausea History of dementia, depression Continue home Mirtazapine, Citalopram History of hypertension Losartan 25mg PO daily DC IVF Prophylaxis SCDs bilateral lower extremities Hypokalemia/hypomagnesemia-replete and recheck in AM Visit type - Emergency Visit Emergency Visit: No - New Patient This patient is new to me today: Yes Date on this admission: 04/14/20 - Critical Care Critical Care patient: No
[2020-04-14] MEDS: MIRTAZAPINE 15 MG TABLET (FP) PO SCH (21:22)
[2020-04-14] MEDS: CITALOPRAM HYDROBROMIDE 20 MG TABLET PO SCH (21:22)
[2020-04-15 07:53] LABS: BASO % 0.9 % (0-2.0); EOS % 0.4 % (0-4.5); HEMATOCRIT 29.1 % (32.4-45.2); HEMOGLOBIN 9.2 GM/dL (10.7-15.3); LYMPH % 8.1 % (8-40); MCH 26.7 pg (25.7-33.7); MCHC 31.7 g/dl (32.0-36.0); MEAN CELL VOLUME 84.3 fl (80-96); MEAN PLT VOLUME 7.9 fl (7.5-11.1); MONO % 6.4 % (3.8-10.2); NEUT % 84.2 % (42.8-82.8); PLATELET COUNT 454 K/MM3 (134-434); RBC 3.45 M/mm3 (3.60-5.2); RDW 13.3 % (11.6-15.6); WHITE BLOOD COUNT 13.5 K/mm3 (4.0-10.0)
[2020-04-15 08:08] LABS: BLOOD UREA NITROGEN 9.8 mg/dL (7-18); CALCIUM 9.7 mg/dL (8.5-10.1); CREATININE 0.6 mg/dL (0.55-1.3); MAGNESIUM 1.8 mg/dL (1.8-2.4); POTASSIUM 3.9 mmol/L (3.5-5.1)
[2020-04-15] MEDS: LOSARTAN POTASSIUM 25 MG TABLET PO SCH (10:27)
[2020-04-15] MEDS: ACETAMINOPHEN 325 MG TABLET (FP) PO PRN ×2 (12:28→19:50)
[2020-04-15] MEDS ORDERED: LOSARTAN POTASSIUM 25 MG TABLET PO SCH (18:05)
[2020-04-15] MEDS ORDERED: LOSARTAN POTASSIUM 25 MG TABLET PO ONE (18:05)
--- NOTE | 2020-04-15 18:05 | PN ---
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, Physician History of Present Illness: seen and examined at bedside during my rounds. She feels better today than yesterday. she is tolerating diet. large amount of serous fluid leaking from surgical wound. She endorses her pain is well controlled. She is tolerating solid foods. She denies nausea vomiting fever chills chest pain or SOB. - Current Medication List Current Medications: Active Medications Acetaminophen (Tylenol -) 650 mg PO Q6H PRN PRN Reason: Fever Or Pain Last Admin: 04/15/20 12:28 Dose: 650 mg Documented by: Citalopram Hydrobromide (Celexa -) 20 mg PO HS [facility] Last Admin: 04/14/20 21:22 Dose: 20 mg Documented by: Losartan Potassium (Cozaar -) 25 mg PO DAILY [facility] Last Admin: 04/15/20 10:27 Dose: 25 mg Documented by: Mirtazapine (Remeron -) 7.5 mg PO [facility] Last Admin: 04/14/20 21:22 Dose: 7.5 mg Documented by: Ondansetron HCl (Zofran Injection) 4 mg IVPUSH Q6H PRN PRN Reason: NAUSEA AND/OR VOMITING - Objective Vital Signs: Vital Signs Temperature 98.7 F 04/15/20 13:00 Pulse Rate 81 04/15/20 13:00 Respiratory Rate 18 04/15/20 13:00 Blood Pressure 176/77 H 04/15/20 13:00 O2 Sat by Pulse Oximetry (%) 98 04/15/20 09:00 Constitutional: Yes: No Distress, Calm Eyes: Yes: Other (conjunctival pallor) HENT: Yes: Other (moist oral mucosa) Cardiovascular: Yes: Regular Rate and Rhythm Respiratory: Yes: Rales (bilaterally at the bases.) Gastrointestinal: Yes: WNL, Normal Bowel Sounds, Soft. No: Distention, Tenderness Edema: No Wound/Incision: Yes: Other (serosangenous drainage...more serous per RN Dr. Joellen mendez.) Neurological: Yes: Alert, Other (sensation intact globally. weak arms and legs.) Labs: CBC, BMP 04/15/20 06:58 04/15/20 06:58 Impression/Plan Impression/Plan: Patient is a 79 year old female with history of hypertension, dementia, depression, spinal stenosis, neuropathy POD#6 s/p removal of L3-L5 hardware, including L4-L5 intervertebral cage, L3-S1 laminectomy, L5-S1 PLIF, L3-S1 posterior instrumented spinal fusion. spinal stenosis POD #6 s/p removal of L3-L5 hardware, including L4-L5 intervertebral cage, L3-S1 laminectomy, L5-S1 PLIF, L3-S1 posterior instrumented spinal fusion. pain control monitor output monitor CBC. Hb 9.2 today up from 8.3 yesterday It was 11.8 pre-op and 10.4 day after Sx. Transfuse PRN Physical therapy Zofran PRN nausea Patient may need to go back to OR per Dr. Cuenca depending on how that drainage is overnight, He will decide in Am. NPO past midnight just in case. History of dementia, depression Continue home Mirtazapine, Citalopram History of hypertension On Losartan 25mg PO daily as outpatient but BP needs better control so will increase to 50mg po daily. Prophylaxis SCDs bilateral lower extremities Hypokalemia/hypomagnesemia-resolved after repletions. Visit type - Emergency Visit Emergency Visit: No - New Patient This patient is new to me today: No - Critical Care Critical Care patient: No
--- NOTE | 2020-04-15 20:42 | PN ---
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 (short form) - Note 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: 79F s/p removal of hardware L3-L5 (including L4-L5 intervertebral cage), inspection of fusion mass, L3-S1 laminectomies, L5-S1 PLIF, L3-S1 posterior instrumented spinal fusion POD #6. Pain well controlled. No acute events overnight. Pt. denies overnight history of headaches, chest pain, shortness of breath, nausea, vomiting, chills, & sweats. (+) [place]; (+) Flatus; (-) BM. Abdomen soft, mildly distended, non tender, passing flatus Pt. globally deconditioned due to prolonged bedridden pre-op. All labs, vitals reviewed. PE: AAO x 3, NAD. L-Spine: Incision, dressing w/serosanguinous drainage. B/L LE Motor & Sensory: Fully intact. 79F s/p removal of hardware L3-L5 (including L4-L5 intervertebral cage), inspection of fusion mass, L3-S1 laminectomies, L5-S1 PLIF, L3-S1 posterior instrumented spinal fusion POD #6. -Pain control. -DVT PPx: -Mechanical only: LITA's, SCD's. -Chemical: None. -Incentive spirometry q15 min. -Advance diet as tolerated. -[place] care; d/c when comfortably ambulating. -PT/OT/Rehab, OOB. -WBAT B/L LE. -No bending, lifting (>5 lbs), or twisting for 9-12 months. -Care per ICU & medical hospitalist teams. Wound drainage serosangeounous Keep NPO from midnight to reevaluate tomorrow re GA and wound I and D in the OR Review tomorrow Seth Cuenca MD (Orthopaedic Surgery).
[2020-04-15] MEDS: CITALOPRAM HYDROBROMIDE 20 MG TABLET PO SCH (21:06)
[2020-04-15] MEDS: MIRTAZAPINE 15 MG TABLET (FP) PO SCH (21:06)
[2020-04-16 08:32] LABS: BASO % 0.8 % (0-2.0); EOS % 3.4 % (0-4.5); HEMATOCRIT 27.8 % (32.4-45.2); HEMOGLOBIN 8.9 GM/dL (10.7-15.3); LYMPH % 9.7 % (8-40); MCH 27.1 pg (25.7-33.7); MCHC 32.1 g/dl (32.0-36.0); MEAN CELL VOLUME 84.7 fl (80-96); MEAN PLT VOLUME 8.1 fl (7.5-11.1); MONO % 6.2 % (3.8-10.2); NEUT % 79.9 % (42.8-82.8); PLATELET COUNT 426 K/MM3 (134-434); RBC 3.29 M/mm3 (3.60-5.2); RDW 13.5 % (11.6-15.6); WHITE BLOOD COUNT 12.8 K/mm3 (4.0-10.0)
[2020-04-16 08:52] LABS: BLOOD UREA NITROGEN 9.3 mg/dL (7-18); CREATININE 0.6 mg/dL (0.55-1.3); MAGNESIUM 1.7 mg/dL (1.8-2.4)
--- NOTE | 2020-04-16 09:33 | PN ---
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 (short form) - Note 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: Patient severely deconditioned. Difficulty in standing. Will require extensive rehab nutritional and psychological positive input. No headache and c/o no altered mental status Awake cooperative dementia is apparent Temp Apyrexial Vitals as per chart. WCC down to 12 CVS Stable RESP Clear mild endobronchial secretions ABDOMEN Soft non tender distension improved passing flatus NEURO At baseline Wound serosang drainage persists New dressings applied PLAN Return to OR cancelled GA relatively contraindicated at present. Will reassess drainage D/C to rehab planning with local dressings if drainage trends down
[2020-04-16] MEDS: ACETAMINOPHEN 325 MG TABLET (FP) PO PRN ×2 (10:05→17:53)
[2020-04-16] MEDS: LOSARTAN POTASSIUM 50 MG TABLET (FP) PO SCH (10:06)
[2020-04-16] MEDS ORDERED: oxyCODONE HCL 5 MG TABLET PO PRN (11:41)
--- NOTE | 2020-04-16 11:41 | PN ---
Physical Exam: SUBJECTIVE: Patient seen and examined, denies any pain at this time. denies constipation. OBJECTIVE: Patient is a 79 year old female with history of hypertension, dementia, depression, spinal stenosis, neuropathy she is s/p removal of L3-L5 hardware, including L4-L5 intervertebral cage, L3-S1 laminectomy, L5-S1 PLIF, L3-S1 posterior instrumented spinal fusion. Patient seen by surgery today, plan for OR for increased serous drainage of wound, however OR cancelled this time. Period Temp Pulse Resp BP Sys/Lepe Pulse Ox Last 24 Hr 97.4 F-99.1 F 76-81 18-20 153-176/74-88 99 GENERAL: The patient is awake, alert, and fully oriented, in no acute distress. HEAD: Normal with no signs of trauma. EYES: PERRL, extraocular movements intact, sclera anicteric, conjunctiva clear. No ptosis. ENT: Ears normal, nares patent, oropharynx clear without exudates NECK: Trachea midline, full range of motion, supple. LUNGS: Breath sounds diminished bilaterally, no wheezes - on 2 liters HEART: Regular rate and rhythm, S1, S2 without murmur, rub or gallop. ABDOMEN: Soft, nontender, nondistended, normoactive bowel sounds, no guarding EXTREMITIES: no edema. NEUROLOGICAL: Normal speech, gait not observed. PSYCH: Normal mood, normal affect. laboratory Results - last 24 hr 04/16/20 04/16/20 04/16/20 06:40 06:40 06:40 WBC 12.8 H RBC 3.29 L Hgb 8.9 L Hct 27.8 L MCV 84.7 MCH 27.1 MCHC 32.1 RDW 13.5 Plt Count 426 MPV 8.1 Absolute Neuts (auto) 10.2 H Neutrophils % 79.9 Lymphocytes % 9.7 Monocytes % 6.2 Eosinophils % 3.4 D Basophils % 0.8 Nucleated RBC % 0 Sodium 140 Potassium 4.0 Chloride 105 Carbon Dioxide 29 Anion Gap 6 L BUN 9.3 Creatinine 0.6 Est GFR (CKD-EPI)AfAm 101.90 Est GFR (CKD-EPI)NonAf 87.92 Random Glucose 77 Calcium 9.0 Magnesium 1.7 L Blood Type O POSITIVE Antibody Screen Negative Active Medications Generic Name Dose Route Start Last Admin Trade Name Freq PRN Reason Stop Dose Admin Acetaminophen 650 mg 04/14/20 02:03 04/16/20 10:05 Tylenol - PO 650 mg Q6H PRN Administration Fever Or Pain Citalopram Hydrobromide 20 mg 04/14/20 22:00 04/15/20 21:06 Celexa - PO 20 mg HS JAYE Administration Docusate Sodium 100 mg 04/16/20 14:00 Colace - PO TID JAYE Losartan Potassium 50 mg 04/16/20 10:00 04/16/20 10:06 Cozaar - PO 50 mg DAILY JAYE Administration Mirtazapine 7.5 mg 04/14/20 22:00 04/15/20 21:06 Remeron - PO 7.5 mg HS JAYE Administration Ondansetron HCl 4 mg 04/13/20 22:31 Zofran Injection IVPUSH Q6H PRN NAUSEA AND/OR VOMITING ASSESSMENT/PLAN: Back surgery: spinalal stenosis on 04/09/2020 of L3-L5 hardware, including L4-L5 intervertebral cage, L3-S1 laminectomy, L5-S1 PLIF, L3-S1 posterior instrumented spinal fusion. pain control with oxycodone and bowel regimen monitor drain output,dressings monitor labs daily incentive spirometer physical therapy nutrition Hypertension elevated today Cozaar recently increased monitor and uptitrate Hypomagnesium supplement - labs daily DVT Prophylaxis SCDs Visit type - Emergency Visit Emergency Visit: Yes ED Registration Date: 04/09/20 Care time: The patient presented to the Emergency Department on the above date and was hospitalized for further evaluation of their emergent condition. - New Patient This patient is new to me today: Yes Date on this admission: 04/16/20 - Critical Care Critical Care patient: No - Discharge Referral Referred to [facility] No
[2020-04-16] MEDS: DOCUSATE SODIUM 100 MG CAPSULE (FP) PO SCH ×2 (14:44→21:21)
[2020-04-16] MEDS: oxyCODONE HCL 5 MG TABLET PO PRN ×2 (14:44→20:05)
[2020-04-16] MEDS ORDERED: MAGNESIUM OXIDE 400 MG TABLET (FP) PO ONE (15:50)
[2020-04-16] MEDS ORDERED: amLODIPine BESYLATE 2.5 MG TABLET (FP) PO ONE (17:25)
[2020-04-16] MEDS: SENNOSIDES 8.6MG TABLET (FP) PO SCH (21:19)
[2020-04-16] MEDS: CITALOPRAM HYDROBROMIDE 20 MG TABLET PO SCH (21:20)
[2020-04-16] MEDS: MIRTAZAPINE 15 MG TABLET (FP) PO SCH (21:21)
[2020-04-17] MEDS: oxyCODONE HCL 5 MG TABLET PO PRN (06:41)
[2020-04-17] MEDS: DOCUSATE SODIUM 100 MG CAPSULE (FP) PO SCH ×3 (06:41→21:04)
[2020-04-17] MEDS: ACETAMINOPHEN 325 MG TABLET (FP) PO PRN (09:50)
[2020-04-17] MEDS: LOSARTAN POTASSIUM 50 MG TABLET (FP) PO SCH (09:51)
[2020-04-17 10:56] LABS: BASO % 0.6 % (0-2.0); EOS % 1.5 % (0-4.5); HEMATOCRIT 26.9 % (32.4-45.2); HEMOGLOBIN 8.7 GM/dL (10.7-15.3); LYMPH % 9.6 % (8-40); MCH 27.4 pg (25.7-33.7); MCHC 32.4 g/dl (32.0-36.0); MEAN CELL VOLUME 84.4 fl (80-96); MEAN PLT VOLUME 7.7 fl (7.5-11.1); MONO % 5.8 % (3.8-10.2); NEUT % 82.5 % (42.8-82.8); PLATELET COUNT 491 K/MM3 (134-434); RBC 3.19 M/mm3 (3.60-5.2); RDW 13.8 % (11.6-15.6); WHITE BLOOD COUNT 12.5 K/mm3 (4.0-10.0)
[2020-04-17 11:20] LABS: ALBUMIN 2.2 g/dl (3.4-5.0); BILIRUBIN,TOTAL 0.4 mg/dL (0.2-1); BLOOD UREA NITROGEN 16.4 mg/dL (7-18); CALCIUM 8.9 mg/dL (8.5-10.1); CREATININE 0.8 mg/dL (0.55-1.3); MAGNESIUM 1.8 mg/dL (1.8-2.4); POTASSIUM 4.2 mmol/L (3.5-5.1); TOT PROT 6.4 g/dl (6.4-8.2)
--- NOTE | 2020-04-17 12:01 | PN ---
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 (short form) - Note 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: 79F s/p removal of hardware L3-L5 (including L4-L5 intervertebral cage), inspection of fusion mass, L3-S1 laminectomies, L5-S1 PLIF, L3-S1 posterior instrumented spinal fusion POD #6. Patient severely globally de-conditioned due to prolonged bedridden status pre- op; mobilized in a wheelchair. Will require extensive rehab, nutritional, and psychological positive care. Difficulty in standing. Pain well controlled. No acute events overnight. Pt. denies overnight history of headaches, chest pain, shortness of breath, nausea, vomiting, chills, & sweats. (+) [place]; (+) Flatus; (+) BM. Abdomen soft, mildly distended, non tender. All labs, vitals reviewed. PE: AAO, NAD, co-operative, dementia apparent. L-Spine: Incision, dressing w/mild, much improved serosanguinous drainage. B/L LE Motor & Sensory: Intact. 79F s/p removal of hardware L3-L5 (including L4-L5 intervertebral cage), inspection of fusion mass, L3-S1 laminectomies, L5-S1 PLIF, L3-S1 posterior instrumented spinal fusion POD #6. -Pain control. -DVT PPx: -Mechanical only: LITA's, SCD's. -Chemical: None. -Incentive spirometry q15 min. -Advance diet as tolerated. -[place] care; d/c when comfortably ambulating. -PT/OT/Rehab, OOB. -WBAT B/L LE. -No bending, lifting (>5 lbs), or twisting for 9-12 months. -Care per medical hospitalist teams. -Discharge planning: Patient severely globally de-conditioned due to prolonged bedridden status pre-op; Will require extensive rehab, nutritional, and psychological positive care; recommend an inpatient facility with extensive spine rehab service such as [facility]. -Will follow. Seth Cuenca MD (Orthopaedic Surgery).
[2020-04-17 13:18] LABS: EPI CELLS 4 /uL (0-25.1); HYALINE CASTS 17 /uL (0-3.1); URINE APPEARANCE CLEAR; URINE BACTERIA 2252 /uL (0-1359); URINE BILIRUBIN NEGATIVE (NEGATIVE); URINE COLOR YELLOW; URINE GLUCOSE (UA) NEGATIVE (NEGATIVE); URINE KETONE 2+ (NEGATIVE); URINE LEUK ESTERASE 1+ (NEGATIVE); URINE NITRITE POSITIVE (NEGATIVE); URINE PROTEIN TRACE (NEGATIVE); URINE RBC 4 /uL (0-23.9); URINE WBC 209 /uL (0-25.8)
[2020-04-17] MEDS ORDERED: CEFTRIAXONE 1 GM in DEXTROSE 5%-WATER - 50 ML IVPB ONE (13:31)
[2020-04-17] MEDS ORDERED: cefTRIAXone SODIUM 1 GM VIAL ONE (14:11)
[2020-04-17] MEDS ORDERED: DEXTROSE 5%-WATER - 50 ML IVPB ONE (14:11)
[2020-04-17] MEDS: AMINO ACIDS 4.25%/D5W 1,000 ML IV SCH (14:25)
--- NOTE | 2020-04-17 15:24 | PN ---
Physical Exam: SUBJECTIVE: Patient seen and examined at the bedside. appears more lethargic today, feels ok she tells me but looks weaker. OBJECTIVE: poor po intake, start on clinimax patient takes oxycodone for pain then sleeps which contributes to the poor PO intake will de oliveira culture as she is spiking fevers 101F: blood, ua, uc, lactic acid and chest xray ordered --- UA + - start ceftriaxone, UC pending ----- Patient is a 79 year old female with history of hypertension, dementia, depression, spinal stenosis, neuropathy she is s/p removal of L3-L5 hardware, including L4-L5 intervertebral cage, L3-S1 laminectomy, L5-S1 PLIF, L3-S1 posterior instrumented spinal fusion. Patient more lethargic today, dressing saturated and changed by primary RN. surgery aware. She was pancultured for lethargy, postive UA, lactic acid normal. chest xray and blood cultures pending. Vital Signs Period Temp Pulse Resp BP Sys/Lepe Pulse Ox Last 24 Hr 99.1 F-101.2 F 75-88 20-20 110-181/68-80 90-98 GENERAL: answers questions, arousable but appears weaker today. HEAD: Normal with no signs of trauma. EYES: PERRL, extraocular movements intact, sclera anicteric, conjunctiva clear. No ptosis. ENT: Ears normal, nares patent, oropharynx clear without exudates NECK: Trachea midline, full range of motion, supple. LUNGS: Breath sounds diminished bilaterally, no wheezes - on 2 liters SPINE: dressing saturated, changed today by primary [employer] APPRENTICE: Regular rate and rhythm, S1, S2 without murmur, rub or gallop. ABDOMEN: Soft, nontender, nondistended, normoactive bowel sounds, no guarding EXTREMITIES: no edema. NEUROLOGICAL: Normal speech, gait not observed. PSYCH: Normal mood, normal affect. 04/17/20 04/17/20 04/17/20 09:45 09:45 12:05 WBC 12.5 H RBC 3.19 L Hgb 8.7 L Hct 26.9 L MCV 84.4 MCH 27.4 MCHC 32.4 RDW 13.8 Plt Count 491 H MPV 7.7 Absolute Neuts (auto) 10.3 H Neutrophils % 82.5 Lymphocytes % 9.6 Monocytes % 5.8 Eosinophils % 1.5 Basophils % 0.6 Nucleated RBC % 0 Sodium 141 Potassium 4.2 Chloride 105 Carbon Dioxide 25 Anion Gap 11 BUN 16.4 Creatinine 0.8 Est GFR (CKD-EPI)AfAm 82.42 Est GFR (CKD-EPI)NonAf 71.11 Random Glucose 75 Lactic Acid Calcium 8.9 Magnesium 1.8 Total Bilirubin 0.4 AST 23 ALT 16 Alkaline Phosphatase 108 Total Protein 6.4 Albumin 2.2 L Urine Color Yellow Urine Appearance Clear Urine pH 6.0 Ur Specific [place] 1.021 Urine Protein Trace Urine Glucose (UA) Negative Urine Ketones 2+ H Urine Blood Negative Urine Nitrite Positive H Urine Bilirubin Negative Urine Urobilinogen 1.0 Ur Leukocyte Esterase 1+ H Urine WBC (Auto) 209 Urine RBC (Auto) 4 Urine Casts (Auto) 17 U Pathogenic Cast Auto Wbc granular casts U Epithel Cells (Auto) 4 Urine Bacteria (Auto) 2252 04/17/20 12:10 WBC RBC Hgb Hct MCV MCH MCHC RDW Plt Count MPV Absolute Neuts (auto) Neutrophils % Lymphocytes % Monocytes % Eosinophils % Basophils % Nucleated RBC % Sodium Potassium Chloride Carbon Dioxide Anion Gap BUN Creatinine Est GFR (CKD-EPI)AfAm Est GFR (CKD-EPI)NonAf Random Glucose Lactic Acid 0.9 Calcium Magnesium Total Bilirubin AST ALT Alkaline Phosphatase Total Protein Albumin Urine Color Urine Appearance Urine pH Ur Specific [place] Urine Protein Urine Glucose (UA) Urine Ketones Urine Blood Urine Nitrite Urine Bilirubin Urine Urobilinogen Ur Leukocyte Esterase Urine WBC (Auto) Urine RBC (Auto) Urine Casts (Auto) U Pathogenic Cast Auto U Epithel Cells (Auto) Urine Bacteria (Auto) Active Medications Generic Name Dose Route Start Last Admin Trade Name Freq PRN Reason Stop Dose Admin Acetaminophen 650 mg 04/14/20 02:03 04/17/20 09:50 Tylenol - PO 650 mg Q6H PRN Administration Fever Citalopram Hydrobromide 20 mg 04/14/20 22:00 04/16/20 21:20 Celexa - PO 20 mg HS JAYE Administration Docusate Sodium 100 mg 04/16/20 14:00 04/17/20 14:26 Colace - PO 100 mg TID JAYE Administration Amino Acids 1,000 mls @ 84 mls/hr 04/17/20 12:00 04/17/20 14:25 Clinimix - IV 84 mls/hr Q12H JAYE Administration Losartan Potassium 50 mg 04/16/20 10:00 04/17/20 09:51 Cozaar - PO 50 mg DAILY JAYE Administration Mirtazapine 7.5 mg 04/14/20 22:00 04/16/20 21:21 Remeron - PO 7.5 mg HS JAYE Administration Ondansetron HCl 4 mg 04/13/20 22:31 Zofran Injection IVPUSH Q6H PRN NAUSEA AND/OR VOMITING Oxycodone HCl 10 mg 04/16/20 11:41 04/17/20 06:41 Roxicodone - PO 10 mg Q6H PRN Administration PAIN LEVEL 7 - 10 Oxycodone HCl 5 mg 04/16/20 11:41 Roxicodone - PO Q6H PRN PAIN LEVEL 4 - 6 Senna 2 tab 04/16/20 22:00 04/16/20 21:19 Senna - PO 2 tab HS JAYE Administration ASSESSMENT/PLAN: Problem List - Problems (1) Toxic metabolic encephalopathy Assessment/Plan: patient arousable but lethargic. will de oliveira culture as she is also having fevers. chest xray pending, UA +, UC pending, blood cultures pending monitor mental status toxic metabolic enceph likely secondary to recent surgery, hx of dementia, possible UTI and fevers monitor Code(s): G92 - TOXIC ENCEPHALOPATHY (2) Status post spinal surgery Assessment/Plan: spinalal stenosis on 04/09/2020 of L3-L5 hardware, including L4-L5 intervertebral cage, L3-S1 laminectomy, L5-S1 PLIF, L3-S1 posterior instrumented spinal fusion. pain control with oxycodone with bowel regimen monitor drain output,dressings monitor labs daily incentive spirometer physical therapy poor appetite, start clinimax Code(s): Z98.890 - OTHER SPECIFIED POSTPROCEDURAL STATES (3) Urinary tract infection Code(s): N39.0 - URINARY TRACT INFECTION, SITE NOT SPECIFIED Qualifiers: Urinary tract infection type: site unspecified Hematuria presence: without hematuria Qualified Code(s): N39.0 - Urinary tract infection, site not specified (4) At risk for dehydration due to poor fluid intake Assessment/Plan: start on clinimax Code(s): Z91.89 - OTH PERSONAL RISK FACTORS, NOT ELSEWHERE CLASSIFIED (5) Prophylactic measure Assessment/Plan: fen clinimax monitor electrolytes dietary consult for supplements will add prosource full code Code(s): Z29.9 - ENCOUNTER FOR PROPHYLACTIC MEASURES, UNSPECIFIED (6) DVT prophylaxis Assessment/Plan: SCDs Code(s): Z29.9 - ENCOUNTER FOR PROPHYLACTIC MEASURES, UNSPECIFIED Visit type - Emergency Visit Emergency Visit: Yes ED Registration Date: 04/09/20 Care time: The patient presented to the Emergency Department on the above date and was hospitalized for further evaluation of their emergent condition. - New Patient This patient is new to me today: No - Critical Care Critical Care patient: No - Discharge Referral Referred to [facility] No
[2020-04-17] MEDS: AMINO ACIDS/PROTEIN HYDROLYS 30 ML LIQUID.PKT PO SCH (17:59)
[2020-04-17] MEDS: SENNOSIDES 8.6MG TABLET (FP) PO SCH (21:04)
[2020-04-17] MEDS: MIRTAZAPINE 15 MG TABLET (FP) PO SCH (21:04)
[2020-04-17] MEDS: CITALOPRAM HYDROBROMIDE 20 MG TABLET PO SCH (21:04)
[2020-04-18] MEDS: AMINO ACIDS 4.25%/D5W 1,000 ML IV SCH ×2 (01:28→14:46)
[2020-04-18] MEDS: DOCUSATE SODIUM 100 MG CAPSULE (FP) PO SCH ×3 (05:54→22:04)
[2020-04-18] MEDS: ACETAMINOPHEN 325 MG TABLET (FP) PO PRN ×2 (06:37→22:04)
[2020-04-18 07:18] LABS: BASO % 0.4 % (0-2.0); EOS % 0.1 % (0-4.5); HEMATOCRIT 25.9 % (32.4-45.2); HEMOGLOBIN 8.5 GM/dL (10.7-15.3); LYMPH % 3.7 % (8-40); MCHC 32.6 g/dl (32.0-36.0); MEAN CELL VOLUME 82.8 fl (80-96); MEAN PLT VOLUME 7.3 fl (7.5-11.1); MONO % 5.4 % (3.8-10.2); NEUT % 90.4 % (42.8-82.8); PLATELET COUNT 409 K/MM3 (134-434); RBC 3.13 M/mm3 (3.60-5.2); RDW 13.7 % (11.6-15.6); WHITE BLOOD COUNT 16.8 K/mm3 (4.0-10.0)
[2020-04-18 07:47] LABS: ALBUMIN 1.9 g/dl (3.4-5.0); BILIRUBIN,TOTAL 0.3 mg/dL (0.2-1); CALCIUM 8.7 mg/dL (8.5-10.1); CREATININE 0.8 mg/dL (0.55-1.3); MAGNESIUM 1.5 mg/dL (1.8-2.4); POTASSIUM 3.5 mmol/L (3.5-5.1); TOT PROT 5.9 g/dl (6.4-8.2)
[2020-04-18] MEDS ORDERED: MAGNESIUM SULF 50% (8.12 MEQ/2 ML-1 GM VIAL) IVPB ONE (07:49)
[2020-04-18] MEDS ORDERED: PIPERACILLIN/TAZOB 3.375 GM 3.375 GM in DEXTROSE 5%-WATER - 50 ML IVPB ONE (07:49)
[2020-04-18] MEDS ORDERED: DEXTROSE 5%-WATER - 50 ML IVPB ONE (08:22)
[2020-04-18] MEDS ORDERED: PIPERACILLIN/TAZOBACTAM 3.375 GM VIAL IVPB ONE (08:22)
[2020-04-18 08:29] LABS: ANISOCYTOSIS 1+; MACROCYTOSIS 0; PLATELET ESTIMATE NORMAL; TARGET CELLS 1+
[2020-04-18] MEDS: AMINO ACIDS/PROTEIN HYDROLYS 30 ML LIQUID.PKT PO SCH ×2 (08:29→17:14)
[2020-04-18] MEDS: LOSARTAN POTASSIUM 50 MG TABLET (FP) PO SCH (09:31)
--- NOTE | 2020-04-18 10:27 | PN ---
Physical Exam: SUBJECTIVE: Patient seen and examined at the bedside. she is awake, opens eyes, tells me her name and that she is in the hospital. but overall appears weak, discussed with ID, consulted placed. OBJECTIVE: patient with fevers, tachycardia, mild hypotension, 22 respirations, wbc increased to 16.8, severe sepsis blood cultures + pending organism - gram negative. UC + psudamonas ID consulted give one dose of zosyn now dressing saturated/sero sang. patient for OR washout today ----- Patient is a 79 year old female with history of hypertension, dementia, depression, spinal stenosis, neuropathy she is s/p removal of L3-L5 hardware, including L4-L5 intervertebral cage, L3-S1 laminectomy, L5-S1 PLIF, L3-S1 posterior instrumented spinal fusion. Patient lethargic, for a washout today by primary surgeon. ---- chest xray 04/17: right base atelectasis Vital Signs Period Temp Pulse Resp BP Sys/Lepe Pulse Ox Last 24 Hr 97.8 F-101.8 F 75-108 20-22 108-120/44-68 97 GENERAL: answers questions, arousable to voice, weak HEAD: Normal with no signs of trauma. EYES: PERRL, extraocular movements intact, sclera anicteric, conjunctiva clear. No ptosis. ENT: Ears normal, nares patent, oropharynx clear without exudates NECK: Trachea midline, full range of motion, supple. LUNGS: Breath sounds diminished bilaterally, no wheezes - on 2 liters SPINE: dressing saturated, sero sang, for possible washout today HEART: Regular rate and rhythm, S1, S2 without murmur, rub or gallop. ABDOMEN: Soft, nontender, nondistended, normoactive bowel sounds, no guarding EXTREMITIES: no edema. NEUROLOGICAL: Normal speech, gait not observed. PSYCH: Normal mood, normal affect. Laboratory Results - last 24 hr 04/17/20 04/17/20 04/17/20 09:45 09:45 12:05 WBC 12.5 H RBC 3.19 L Hgb 8.7 L Hct 26.9 L MCV 84.4 MCH 27.4 MCHC 32.4 RDW 13.8 Plt Count 491 H MPV 7.7 Absolute Neuts (auto) 10.3 H Neutrophils % 82.5 Neutrophils % (Manual) Band Neutrophils % Lymphocytes % 9.6 Lymphocytes % (Manual) Monocytes % 5.8 Monocytes % (Manual) Eosinophils % 1.5 Eosinophils % (Manual) Basophils % 0.6 Basophils % (Manual) Myelocytes % (Man) Promyelocytes % (Man) Blast Cells % (Manual) Nucleated RBC % 0 Metamyelocytes Hypochromia Platelet Estimate Polychromasia Poikilocytosis Anisocytosis Microcytosis Macrocytosis Target Cells Sodium 141 Potassium 4.2 Chloride 105 Carbon Dioxide 25 Anion Gap 11 BUN 16.4 Creatinine 0.8 Est GFR (CKD-EPI)AfAm 82.42 Est GFR (CKD-EPI)NonAf 71.11 Random Glucose 75 Lactic Acid Calcium 8.9 Magnesium 1.8 Total Bilirubin 0.4 AST 23 ALT 16 Alkaline Phosphatase 108 Total Protein 6.4 Albumin 2.2 L Urine Color Yellow Urine Appearance Clear Urine pH 6.0 Ur Specific [place] 1.021 Urine Protein Trace Urine Glucose (UA) Negative Urine Ketones 2+ H Urine Blood Negative Urine Nitrite Positive H Urine Bilirubin Negative Urine Urobilinogen 1.0 Ur Leukocyte Esterase 1+ H Urine WBC (Auto) 209 Urine RBC (Auto) 4 Urine Casts (Auto) 17 U Pathogenic Cast Auto Wbc granular casts U Epithel Cells (Auto) 4 Urine Bacteria (Auto) 2252 04/17/20 04/18/20 04/18/20 12:10 06:30 06:30 WBC 16.8 H RBC 3.13 L Hgb 8.5 L Hct 25.9 L MCV 82.8 MCH 27.0 MCHC 32.6 RDW 13.7 Plt Count 409 MPV 7.3 L Absolute Neuts (auto) 15.2 H Neutrophils % 90.4 H Neutrophils % (Manual) 91.0 H Band Neutrophils % 0.0 Lymphocytes % 3.7 L D Lymphocytes % (Manual) 7.0 L Monocytes % 5.4 Monocytes % (Manual) 2 L Eosinophils % 0.1 D Eosinophils % (Manual) 0.0 Basophils % 0.4 Basophils % (Manual) 0.0 Myelocytes % (Man) 0 Promyelocytes % (Man) 0 Blast Cells % (Manual) 0 Nucleated RBC % 0 Metamyelocytes 0 Hypochromia 0 Platelet Estimate Normal Polychromasia 1+ Poikilocytosis 1+ Anisocytosis 1+ Microcytosis 1+ Macrocytosis 0 Target Cells 1+ Sodium 137 Potassium 3.5 Chloride 103 Carbon Dioxide 25 Anion Gap 9 BUN 25.0 H Creatinine 0.8 Est GFR (CKD-EPI)AfAm 82.42 Est GFR (CKD-EPI)NonAf 71.11 Random Glucose 138 H Lactic Acid 0.9 Calcium 8.7 Magnesium 1.5 L Total Bilirubin 0.3 AST 53 H ALT 20 Alkaline Phosphatase 122 H Total Protein 5.9 L Albumin 1.9 L Urine Color Urine Appearance Urine pH Ur Specific [place] Urine Protein Urine Glucose (UA) Urine Ketones Urine Blood Urine Nitrite Urine Bilirubin Urine Urobilinogen Ur Leukocyte Esterase Urine WBC (Auto) Urine RBC (Auto) Urine Casts (Auto) U Pathogenic Cast Auto U Epithel Cells (Auto) Urine Bacteria (Auto) Active Medications Generic Name Dose Route Start Last Admin Trade Name Freq PRN Reason Stop Dose Admin Acetaminophen 650 mg 04/14/20 02:03 04/18/20 06:37 Tylenol - PO 650 mg Q6H PRN Administration Fever Amino Acids 30 ml 04/17/20 17:30 04/18/20 08:29 Prosource No Carb Liquid Pkt PO Not Given BID@0800,1730 JAYE Citalopram Hydrobromide 20 mg 04/14/20 22:00 04/17/20 21:04 Celexa - PO 20 mg HS JAYE Administration Docusate Sodium 100 mg 04/16/20 14:00 04/18/20 05:54 Colace - PO 100 mg TID JAYE Administration Amino Acids 1,000 mls @ 84 mls/hr 04/17/20 12:00 04/18/20 01:28 Clinimix - IV 84 mls/hr Q12H JAYE Administration Losartan Potassium 50 mg 04/16/20 10:00 04/18/20 09:31 Cozaar - PO Not Given DAILY JAYE Mirtazapine 7.5 mg 04/14/20 22:00 04/17/20 21:04 Remeron - PO 7.5 mg HS JAYE Administration Ondansetron HCl 4 mg 04/13/20 22:31 Zofran Injection IVPUSH Q6H PRN NAUSEA AND/OR VOMITING Oxycodone HCl 10 mg 04/16/20 11:41 04/17/20 06:41 Roxicodone - PO 10 mg Q6H PRN Administration PAIN LEVEL 7 - 10 Oxycodone HCl 5 mg 04/16/20 11:41 Roxicodone - PO Q6H PRN PAIN LEVEL 4 - 6 Senna 2 tab 04/16/20 22:00 04/17/20 21:04 Senna - PO 2 tab HS JAYE Administration ASSESSMENT/PLAN: Problem List - Problems (1) Severe sepsis Assessment/Plan: patient with fevers, tachycardia, mild hypotension, 22 respirations, wbc increased to 16.8, severe sepsis blood cultures + pending organism - gram negative. UC + psudamonas give one dose of zosyn now - also on ceftriaxone for UTI dressing saturated/sero sang. patient for OR washout today Code(s): A41.9 - SEPSIS, UNSPECIFIED ORGANISM; R65.20 - SEVERE SEPSIS WITHOUT SEPTIC SHOCK (2) Toxic metabolic encephalopathy Assessment/Plan: patient arousable but lethargic. patient with fevers, tachycardia, mild hypotension, 22 respirations, wbc increased to 16.8, severe sepsis blood cultures + pending organism - gram negative. UC + psudamonas ID consulted give one dose of zosyn now - also on ceftriaxone for UTI dressing saturated/sero sang. patient for OR washout today Code(s): G92 - TOXIC ENCEPHALOPATHY (3) Status post spinal surgery Assessment/Plan: spinalal stenosis on 04/09/2020 of L3-L5 hardware, including L4-L5 intervertebral cage, L3-S1 laminectomy, L5-S1 PLIF, L3-S1 posterior instrumented spinal fusion. pain control with oxycodone with bowel regimen monitor drain output,dressings monitor labs daily incentive spirometer physical therapy poor appetite, on clinimax Code(s): Z98.890 - OTHER SPECIFIED POSTPROCEDURAL STATES (4) Urinary tract infection Assessment/Plan: UA +, UC with pseudamonas Code(s): N39.0 - URINARY TRACT INFECTION, SITE NOT SPECIFIED Qualifiers: Urinary tract infection type: site unspecified Hematuria presence: without hematuria Qualified Code(s): N39.0 - Urinary tract infection, site not specified (5) At risk for dehydration due to poor fluid intake Assessment/Plan: start on clinimax Code(s): Z91.89 - OTH PERSONAL RISK FACTORS, NOT ELSEWHERE CLASSIFIED (6) Prophylactic measure Assessment/Plan: fen clinimax monitor electrolytes dietary consult for supplements will add prosource full code Code(s): Z29.9 - ENCOUNTER FOR PROPHYLACTIC MEASURES, UNSPECIFIED (7) DVT prophylaxis Assessment/Plan: SCDs Code(s): Z29.9 - ENCOUNTER FOR PROPHYLACTIC MEASURES, UNSPECIFIED Visit type - Emergency Visit Emergency Visit: Yes ED Registration Date: 04/09/20 Care time: The patient presented to the Emergency Department on the above date and was hospitalized for further evaluation of their emergent condition. - New Patient This patient is new to me today: No - Critical Care Critical Care patient: No - Discharge Referral Referred to [facility] No
[2020-04-18] MEDS ORDERED: ACETAMINOPHEN 650 MG SUPP.RECT RC ONE (14:00)
--- NOTE | 2020-04-18 14:08 | CON.ID ---
Consult - History of Present Illness History of Present Illness: 79 y.o. female with PMH of dementia, HTN, depression, lumbar stenosis s/p laminectomy, neuropathy who underwent removal of L3-L5 hardware, L3-S1 laminecto mies, L5-S1 PLIF/L3-S1 PSIF on 04/09/20 and yesterday noted to develop fever up to 101.8F and increase in wbc to 16.8K today along with mild hypotension and lethargy. Increased drainage from wound site was noted recently and drainage in OR planned. New blood cultures reveal growth of gram neg bacilli with Urine culture +pseudomonas. Currently pt is weak but alert and answering questions, without acute distress. Denies SOB, has chronic back pain controlled with meds. 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 Cardio/Vascular: Yes: HTN Heme/Onc: Yes: Anemia Psych: Yes: Depression Musculoskeletal: Yes: Other (Spinal stenosis) Endocrine: Yes: Other (Neuropathy) - Past Surgical History Past Surgical History: Yes: Laminectomy - Alcohol/Substance Use Hx Alcohol Use: No - Smoking History Smoking history: Former smoker Have you smoked in the past 12 months: Yes If you are a former smoker, when did you quit?: 5months ago Home Medications - Allergies Allergies/Adverse Reactions: Allergies Allergy/AdvReac Type Severity Reaction Status Date / Time No Known Allergies Allergy Verified 04/09/20 06:53 - Home Medications Home Medications: Ambulatory Orders Citalopram Hydrobromide [Citalopram HBr] 20 mg PO HS 02/18/20 Losartan Potassium [Cozaar] 25 mg PO DAILY 02/18/20 Mirtazapine 7.5 mg PO HS 04/09/20 Review of Systems - Review of Systems Constitutional: reports: Lethargy, Weakness Eyes: reports: No Symptoms HENT: reports: No Symptoms Neck: reports: No Symptoms Cardiovascular: reports: No Symptoms Respiratory: reports: No Symptoms Gastrointestinal: reports: No Symptoms Genitourinary: reports: No Symptoms Musculoskeletal: reports: Back Pain Integumentary: reports: Wound Neurological: reports: Weakness Hematology/Lymphatic: reports: No Symptoms Psychiatric: reports: No Symptoms Physical Exam Vital Signs: Vital Signs Temperature 101 F H 04/18/20 13:53 Pulse Rate 77 04/18/20 13:53 Respiratory Rate 04/18/20 13:53 Blood Pressure 114/62 04/18/20 13:53 O2 Sat by Pulse Oximetry (%) 100 04/18/20 10:00 Constitutional: Yes: No Distress, Calm, Other (generized weakness) Eyes: Yes: Conjunctiva Clear Neck: Yes: Supple Cardiovascular: Yes: Regular Rate and Rhythm Respiratory: Yes: CTA Bilaterally Gastrointestinal: Yes: Normal Bowel Sounds, Soft Renal/: Yes: WNL Musculoskeletal: Yes: Back Pain Extremities: Yes: WNL Edema: No Wound/Incision: Yes: Other (dressing soaked with dark, malodorous drainage) Neurological: Yes: Lethargy Psychiatric: Yes: Alert Labs: CBC, BMP 04/18/20 06:30 04/18/20 06:30 Laboratory Last Values WBC 16.8 K/mm3 (4.0-10.0) H 04/18/20 06:30 RBC 3.13 M/mm3 (3.60-5.2) L 04/18/20 06:30 Hgb 8.5 GM/dL (10.7-15.3) L 04/18/20 06:30 Hct 25.9 % (32.4-45.2) L 04/18/20 06:30 MCV 82.8 fl (80-96) 04/18/20 06:30 MCH 27.0 pg (25.7-33.7) 04/18/20 06:30 MCHC 32.6 g/dl (32.0-36.0) 04/18/20 06:30 RDW 13.7 % (11.6-15.6) 04/18/20 06:30 Plt Count 409 K/MM3 (134-434) 04/18/20 06:30 MPV 7.3 fl (7.5-11.1) L 04/18/20 06:30 Absolute Neuts (auto) 15.2 K/mm3 (1.5-8.0) H 04/18/20 06:30 Neutrophils % 90.4 % (42.8-82.8) H 04/18/20 06:30 Neutrophils % (Manual) 91.0 % (42.8-82.8) H 04/18/20 06:30 Band Neutrophils % 0.0 % 04/18/20 06:30 Lymphocytes % 3.7 % (8-40) L D 04/18/20 06:30 Lymphocytes % (Manual) 7.0 % (8-40) L 04/18/20 06:30 Monocytes % 5.4 % (3.8-10.2) 04/18/20 06:30 Monocytes % (Manual) 2 % (3.8-10.2) L 04/18/20 06:30 Eosinophils % 0.1 % (0-4.5) D 04/18/20 06:30 Eosinophils % (Manual) 0.0 % (0-4.5) 04/18/20 06:30 Basophils % 0.4 % (0-2.0) 04/18/20 06:30 Basophils % (Manual) 0.0 % (0-2.0) 04/18/20 06:30 Myelocytes % (Man) 0 % (0-2) 04/18/20 06:30 Promyelocytes % (Man) 0 % (0-2) 04/18/20 06:30 Blast Cells % (Manual) 0 % (0-0) 04/18/20 06:30 Nucleated RBC % 0 % (0-0) 04/18/20 06:30 Metamyelocytes 0 % (0-2) 04/18/20 06:30 Hypochromia 0 04/18/20 06:30 Platelet Estimate Normal 04/18/20 06:30 Platelet Comment Present 04/12/20 08:40 Polychromasia 1+ 04/18/20 06:30 Poikilocytosis 1+ 04/18/20 06:30 Anisocytosis 1+ 04/18/20 06:30 Microcytosis 1+ 04/18/20 06:30 Macrocytosis 0 04/18/20 06:30 Target Cells 1+ 04/18/20 06:30 Sodium 137 mmol/L (136-145) 04/18/20 06:30 Potassium 3.5 mmol/L (3.5-5.1) 04/18/20 06:30 Chloride 103 mmol/L (98-107) 04/18/20 06:30 Carbon Dioxide 25 mmol/L (21-32) 04/18/20 06:30 Anion Gap 9 MMOL/L (8-16) 04/18/20 06:30 BUN 25.0 mg/dL (7-18) H 04/18/20 06:30 Creatinine 0.8 mg/dL (0.55-1.3) 04/18/20 06:30 Est GFR (CKD-EPI)AfAm 82.42 04/18/20 06:30 Est GFR (CKD-EPI)NonAf 71.11 04/18/20 06:30 Random Glucose 138 mg/dL (74-106) H 04/18/20 06:30 Lactic Acid 0.9 mmol/L (0.4-2.0) 04/17/20 12:10 Calcium 8.7 mg/dL (8.5-10.1) 04/18/20 06:30 Phosphorus 2.9 mg/dL (2.5-4.9) 04/14/20 08:02 Magnesium 1.5 mg/dL (1.8-2.4) L 04/18/20 06:30 Total Bilirubin 0.3 mg/dL (0.2-1) 04/18/20 06:30 AST 53 U/L (15-37) H 04/18/20 06:30 ALT 20 U/L (13-61) 04/18/20 06:30 Alkaline Phosphatase 122 U/L (45-117) H 04/18/20 06:30 Total Protein 5.9 g/dl (6.4-8.2) L 04/18/20 06:30 Albumin 1.9 g/dl (3.4-5.0) L 04/18/20 06:30 Urine Color Yellow 04/17/20 12:05 Urine Appearance Clear 04/17/20 12:05 Urine pH 6.0 (5.0-8.0) 04/17/20 12:05 Ur Specific [place] 1.021 (1.010-1.035) 04/17/20 12:05 Urine Protein Trace (NEGATIVE) 04/17/20 12:05 Urine Glucose (UA) Negative (NEGATIVE) 04/17/20 12:05 Urine Ketones 2+ (NEGATIVE) H 04/17/20 12:05 Urine Blood Negative (NEGATIVE) 04/17/20 12:05 Urine Nitrite Positive (NEGATIVE) H 04/17/20 12:05 Urine Bilirubin Negative (NEGATIVE) 04/17/20 12:05 Urine Urobilinogen 1.0 mg/dL (0.2-1.0) 04/17/20 12:05 Ur Leukocyte Esterase 1+ (NEGATIVE) H 04/17/20 12:05 Urine WBC (Auto) 209 /uL (0-25.8) 04/17/20 12:05 Urine RBC (Auto) 4 /uL (0-23.9) 04/17/20 12:05 Urine Casts (Auto) 17 /uL (0-3.1) 04/17/20 12:05 U Pathogenic Cast Auto Wbc granular casts /lpf (NEGATIVE) 04/17/20 12:05 U Epithel Cells (Auto) 4 /uL (0-25.1) 04/17/20 12:05 Urine Bacteria (Auto) 2252 /uL (0-1359) 04/17/20 12:05 Blood Type O POSITIVE 04/16/20 06:40 Antibody Screen Negative 04/16/20 06:40 Microbiology 04/17/20 12:14 Blood - Peripheral Venous Blood Culture - Preliminary Non Lactose Fermenting Gnb 04/17/20 12:10 Blood - Peripheral Venous Blood Culture - Preliminary Non Lactose Fermenting Gnb 04/17/20 12:05 Urine - Urine - Catheterized Urine Culture - Preliminary Pseudomonas Species Imaging - Results Chest X-ray: Report Reviewed Problem List - Problems (1) Severe sepsis Code(s): A41.9 - SEPSIS, UNSPECIFIED ORGANISM; R65.20 - SEVERE SEPSIS WITHOUT SEPTIC SHOCK (2) Bacteremia due to Gram-negative bacteria Code(s): R78.81 - BACTEREMIA (3) Status post spinal surgery Code(s): Z98.890 - OTHER SPECIFIED POSTPROCEDURAL STATES (4) Toxic metabolic encephalopathy Code(s): G92 - TOXIC ENCEPHALOPATHY (5) Urinary tract infection Code(s): N39.0 - URINARY TRACT INFECTION, SITE NOT SPECIFIED Qualifiers: Urinary tract infection type: site unspecified Hematuria presence: without hematuria Qualified Code(s): N39.0 - Urinary tract infection, site not specified Assessment/Plan 79 y.o. female with PMH of dementia, HTN, depression, lumbar stenosis s/p laminectomy, neuropathy who underwent removal of L3-L5 hardware, L3-S1 laminectomies, L5-S1 PLIF/L3-S1 PSIF on 04/09/20 and yesterday noted to develop fever up to 101.8F and increase in wbc to 16.8K today along with lethargy and mild hypotension. Severe Sepsis Gram negative Bacteremia Pseudomonas UTI s/p Spinal surgery r/o post-op infection -- Will increase dose of Zosyn, Will add Vancomycin IV empirically for now -- follow up Blood culture isolates, collect wound cultures if OR drainage planned -- monitor temp/wbc trend, vitals closely -- f/u COVID screen -- hydration as needed -- Orthopedics following Will follow up Thank you
[2020-04-18] MEDS ORDERED: VANCOMYCIN 1 GRAM (PRE-DOCKED) 1,000 MG/250 ML BAG IVPB SCH (14:30)
[2020-04-18] MEDS ORDERED: DEXTROSE 5%-WATER 100 ML IVPB ONE ×2 (14:40→21:54)
[2020-04-18] MEDS ORDERED: PIPERACILLIN/TAZOBACTAM 4.5 GM VIAL IVPB ONE ×2 (14:40→21:53)
[2020-04-18] MEDS: PIPERACILLIN/TAZOB 4.5 GM 4.5 GM in DEXTROSE 5%-WATER 100 ML IVPB SCH ×2 (14:45→22:04)
[2020-04-18] MEDS ORDERED: LIDOCAINE HCL/PF 2% SDV 5ML VIAL ONE (15:23)
[2020-04-18] MEDS ORDERED: ROCURONIUM BROMIDE 50 MG/5 ML SYRINGE ONE (15:24)
[2020-04-18] MEDS ORDERED: PROPOFOL 20 ML ONE (15:24)
[2020-04-18] MEDS ORDERED: SUCCINYLCHOLINE CHLORIDE 200 MG/10 ML SYRINGE ONE (15:31)
[2020-04-18] MEDS ORDERED: DEXAMETHASONE SOD PHOSPHATE 4 MG/1 ML VIAL ONE (15:32)
[2020-04-18] MEDS ORDERED: ETOMIDATE 20 MG/10 ML AMPUL IVPUSH ONE (16:23)
[2020-04-18] MEDS ORDERED: NEOSTIGMINE METHYLSULFATE 0.5 MG/ML - 10 ML MDV ONE (17:36)
[2020-04-18] MEDS ORDERED: GLYCOPYRROLATE 0.2 MG/1 ML VIAL ONE (17:36)
--- NOTE | 2020-04-18 17:45 | PN ---
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 (short form) - Note 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: 79F s/p removal of hardware L3-L5 (including L4-L5 intervertebral cage), inspection of fusion mass, L3-S1 laminectomies, L5-S1 PLIF, L3-S1 posterior instrumented spinal fusion (04/09/2020) now s/p I&D lumbar spine with betadine dressing wound packing POD #0. (+) Foul smelling sub-fascial purulence. 3 x wound cultures sent to lab. Wound irrigated with 3L NS & debrided with betadine sponge. 3 minute wound soak with diluted betadine solution. Wound packed with betadine soaked Kerlix. Wound approximated with Lautenbach sutures. -Admit to ICU post-op: patient is nutritionally sub-optimal (negative nitrogen balance), this has contributed to onset/advancement of dementia and poor wound healing; needs PEG tube placement and nutritional optimization. -Recommend GI, ID consults. -Pain medication: per anaesthesia team; GLASSWARE ENGRAVER if needed; NO NSAID's. -f/u OR wound cultures x 3 (aerobic, anaerobic, AFB, fungal). -Recommend ID consult (Dr. Frankel): Empiric antibiotic coverage until OR culture speciation returns. -Maintain avila catheter until patient comfortably ambulating. -DVT PPx: -Mechanical only: LITA's, SCD's. -f/u AM labs: CBC, BMP. -Incentive spirometry. -PT/OT/Rehab, OOB. -WBAT B/L LE. -No heavy lifting (>5 lbs), bending or twisting x 6 months post op. -B/L UE & LE NV checks. -Care per ICU, ID, GI, and primary medical hospitalist teams. -Discharge planning: patient needs PEG tube placement for nutritional optimization; plan to repeat I&D with application of wound vac 48 hrs. (04/20; NPO w/IVF tomorrow at midnight). -Will follow. Seth Cuenca MD (Orthopaedic Surgery).
[2020-04-18] MEDS ORDERED: ONDANSETRON 4 MG/2 ML VIAL IVPUSH PRN (18:02)
--- NOTE | 2020-04-18 18:04 | OP ---
Operative Note - Note: Operative Date: 04/18/20 Pre-Operative Diagnosis: Lumbar spine wound infection Operation: 1. I&D lumbar spine. 2. Wound packing. 3. Complex spine closure Findings: (+) Foul smelling sub-fascial purulence. 3 x wound cultures sent to lab. Wound irrigated with 3L NS & debrided with betadine sponge. 3 minute wound soak with diluted betadine solution. Wound packed with betadine soaked Kerlix. Wound approximated with Lautenbach sutures. Post-Operative Diagnosis: Same as Pre-op Surgeon: Seth Cuenca Handhole Machine Operator: Marko Cuenca Anesthesiologist/BULK PICKER: Allen Lucas Anesthesia: General Specimens Removed: 3 x wound cultures Estimated Blood Loss (mls): 25 Fluid Volume Replaced (mls): 800 (Crystalloid) Operative Report Dictated: Yes
--- NOTE | 2020-04-18 18:55 | CONSULT ---
Consultation: REQUESTING PROVIDER: CONSULT REQUEST: We have been asked to medically evaluate this patient for post- operative care. HISTORY OF PRESENT ILLNESS: 79yo F with PMHx of dementia, depression, HTN, spinal stenosis s/p spinal surgery on 04/09/2020. This morning, patient presented febrile and hypotensive with leukocytosis, blood cx growing non lactose fermenting gnb, urine cx growing pseudomonas, CXR with RLL blunting of costophrenic angle, and was returned to the OR for due to sepsis. GI and ID have been consulted. REVIEW OF SYSTEMS: CONSTITUTIONAL: Absent: fever, chills, diaphoresis, generalized weakness, malaise, loss of appetite, weight change HEENT: Absent: rhinorrhea, nasal congestion, throat pain, throat swelling, difficulty swallowing, mouth swelling, ear pain, eye pain, visual changes CARDIOVASCULAR: Absent: chest pain, syncope, palpitations, irregular heart rate, lightheadedness, peripheral edema RESPIRATORY: Absent: cough, shortness of breath, dyspnea with exertion, orthopnea, wheezing, stridor, hemoptysis GASTROINTESTINAL: Absent: abdominal pain, abdominal distension, nausea, vomiting, diarrhea, constipation, melena, hematochezia GENITOURINARY: Absent: dysuria, frequency, urgency, hesitancy, hematuria, flank pain, genital pain MUSCULOSKELETAL: Absent: myalgia, arthralgia, joint swelling, back pain, neck pain SKIN: Absent: rash, itching, pallor HEMATOLOGIC/IMMUNOLOGIC: Absent: easy bleeding, easy bruising, lymphadenopathy, frequent infections ENDOCRINE: Absent: unexplained weight gain, unexplained weight loss, heat intolerance, cold intolerance NEUROLOGIC: Absent: headache, focal weakness or paresthesias, dizziness, unsteady gait, seizure, mental status changes, bladder or bowel incontinence PSYCHIATRIC: Absent: anxiety, depression, suicidal or homicidal ideation, hallucinations. PHYSICAL EXAMINATION Vital Signs - 24 hr 04/17/20 04/17/20 04/18/20 19:32 20:08 06:00 Temperature 97.8 F 101.8 F H Pulse Rate 82 108 H Respiratory 20 20 22 H Rate Blood Pressure 117/57 L 108/44 L O2 Sat by Pulse 97 Oximetry (%) 04/18/20 04/18/20 04/18/20 09:00 10:00 13:53 Temperature 99.8 F H 101 F H Pulse Rate 80 77 Respiratory 18 20 Rate Blood Pressure 98/52 L 114/62 O2 Sat by Pulse 100 100 Oximetry (%) GENERAL: Awake, alert, and fully oriented, in no acute distress. HEAD: Normal with no signs of trauma. EYES: Pupils equal, round and reactive to light, extraocular movements intact, sclera anicteric, conjunctiva clear. No lid lag. EARS, NOSE, THROAT: Ears normal, nares patent, oropharynx clear without exudates. Moist mucous membranes. NECK: Normal range of motion, supple without lymphadenopathy, JVD, or masses. LUNGS: Breath sounds equal, clear to auscultation bilaterally. No wheezes, and no crackles. No accessory muscle use. HEART: Regular rate and rhythm, normal S1 and S2 without murmur, rub or gallop. ABDOMEN: Soft, nontender, not distended, normoactive bowel sounds, no guarding, no rebound, no masses. No hepatomegaly or splenomegaly. MUSCULOSKELETAL: Normal range of motion at all joints. No bony deformities or tenderness. No CVA tenderness. UPPER EXTREMITIES: 2+ pulses, warm, well-perfused. No cyanosis. No clubbing. Cap refill <2 seconds. No peripheral edema. LOWER EXTREMITIES: 2+ pulses, warm, well-perfused. No calf tenderness. No peripheral edema. NEUROLOGICAL: Cranial nerves II-XII intact. Normal speech. Normal gait. PSYCHIATRIC: Cooperative. Good eye contact. Appropriate mood and affect. SKIN: Warm, dry, normal turgor, no rashes or lesions noted. Laboratory Results - last 24 hr 04/18/20 04/18/20 06:30 06:30 WBC 16.8 H RBC 3.13 L Hgb 8.5 L Hct 25.9 L MCV 82.8 MCH 27.0 MCHC 32.6 RDW 13.7 Plt Count 409 MPV 7.3 L Absolute Neuts (auto) 15.2 H Neutrophils % 90.4 H Neutrophils % (Manual) 91.0 H Band Neutrophils % 0.0 Lymphocytes % 3.7 L D Lymphocytes % (Manual) 7.0 L Monocytes % 5.4 Monocytes % (Manual) 2 L Eosinophils % 0.1 D Eosinophils % (Manual) 0.0 Basophils % 0.4 Basophils % (Manual) 0.0 Myelocytes % (Man) 0 Promyelocytes % (Man) 0 Blast Cells % (Manual) 0 Nucleated RBC % 0 Metamyelocytes 0 Hypochromia 0 Platelet Estimate Normal Polychromasia 1+ Poikilocytosis 1+ Anisocytosis 1+ Microcytosis 1+ Macrocytosis 0 Target Cells 1+ Sodium 137 Potassium 3.5 Chloride 103 Carbon Dioxide 25 Anion Gap 9 BUN 25.0 H Creatinine 0.8 Est GFR (CKD-EPI)AfAm 82.42 Est GFR (CKD-EPI)NonAf 71.11 Random Glucose 138 H Calcium 8.7 Magnesium 1.5 L Total Bilirubin 0.3 AST 53 H ALT 20 Alkaline Phosphatase 122 H Total Protein 5.9 L Albumin 1.9 L Active Medications Generic Name Dose Route Start Last Admin Trade Name Freq PRN Reason Stop Dose Admin Acetaminophen 650 mg 04/14/20 02:03 04/18/20 06:37 Tylenol - PO 650 mg Q6H PRN Administration Fever Amino Acids 30 ml 04/17/20 17:30 04/18/20 17:14 Prosource No Carb Liquid Pkt PO Not Given BID@0800,1730 JAYE Chlorhexidine Gluconate 1 applic 04/18/20 22:00 Hibiclens For Decolonization - TP HS JAYE Citalopram Hydrobromide 20 mg 04/14/20 22:00 04/17/20 21:04 Celexa - PO 20 mg HS JAYE Administration Docusate Sodium 100 mg 04/16/20 14:00 04/18/20 13:58 Colace - PO Not Given TID JAYE Fentanyl 25 mcg 04/18/20 18:02 Sublimaze Injection - IVPUSH [id number] PRN PAIN-PACU ORDER X 4 DOSES ONLY Amino Acids 1,000 mls @ 84 mls/hr 04/17/20 12:00 04/18/20 14:46 Clinimix - IV 84 mls/hr Q12H JAYE Administration Piperacillin Sod/Tazobactam 100 mls @ 200 mls/hr 04/18/20 15:00 04/18/20 14:45 Sod 4.5 gm/ Dextrose IVPB 200 mls/hr Q6H-IV JAYE Administration Protocol Vancomycin HCl 1,000 mg in 250 mls @ 200 mls/hr 04/18/20 14:30 04/18/20 14:45 Vancomycin (Pre-Docked) IVPB 200 mls/hr Q24H JAYE Administration Protocol Lactated Ringer's 1,000 mls @ 75 mls/hr 04/18/20 18:15 Lactated Ringers Solution IV ASDIR JAYE Losartan Potassium 50 mg 04/16/20 10:00 04/18/20 09:31 Cozaar - PO Not Given DAILY JAYE Mirtazapine 7.5 mg 04/14/20 22:00 04/17/20 21:04 Remeron - PO 7.5 mg HS JAYE Administration Mupirocin 1 applic 04/18/20 22:00 Bactroban Ointment (For Decolonization) - NS 04/23/20 21:59 BID JAYE Ondansetron HCl 4 mg 04/18/20 18:02 Zofran Injection IVPUSH Q6H PRN NAUSEA AND/OR VOMITING Oxycodone HCl 10 mg 04/16/20 11:41 04/17/20 06:41 Roxicodone - PO 10 mg Q6H PRN Administration PAIN LEVEL 7 - 10 Oxycodone HCl 5 mg 04/16/20 11:41 Roxicodone - PO Q6H PRN PAIN LEVEL 4 - 6 Senna 2 tab 04/16/20 22:00 04/17/20 21:04 Senna - PO 2 tab HS JAYE Administration ASSESSMENT/PLAN: Dispo: We will continue to follow the patient. Thank you for this consultative opportunity. Home meds incetive spiromettry 4L nasal canula ATTENDING PHYSICIAN STATEMENT I saw and evaluated the patient. I reviewed the resident's note and discussed the case with the resident. I agree with the resident's findings and plan as documented. SUBJECTIVE: OBJECTIVE: ASSESSMENT AND PLAN:
[2020-04-18] MEDS: LACTATED RINGERS SOLUTION 1,000 ML IV SCH ×2 (19:15→20:00)
[2020-04-18] MEDS: MIRTAZAPINE 15 MG TABLET (FP) PO SCH (22:04)
[2020-04-18] MEDS: SENNOSIDES 8.6MG TABLET (FP) PO SCH (22:04)
--- NOTE | 2020-04-18 22:23 | CONSULT ---
"Consultation: REQUESTING PROVIDER: Dr. Cuenca CONSULT REQUEST: We have been asked to medically evaluate this patient for post- operative monitoring. HISTORY OF PRESENT ILLNESS: Pt is a 79 yo F PMHx hypertension, dementia, depression, spinal stenosis, and neuropathy with recent extensive lumbar back surgery (removal of hardware L3-L5 including L4-L5 intervertebral cage, inspection of fusion mass, L3-S1 laminectomies, L5-S1 PLIF, L3-S1 posterior instrumented spinal fusion) on 04/09/2020; now admitted s/p I&D lumbar spine with betadine dressing wound packing. After surgery on 04/09, patient was admitted to the ICU for post-operative monitoring and [facility] for continued monitoring on 04/14. Pt became febrile while on the floors and found to be in severe sepsis (Blood Cx + for gram neg bacilli; Urine Cx + for Pseudomonas). She was started on IV vancomycin and zosyn. Surgical washout of subfascial purulence was completed via I&D of infected wound today. Upon admssion, pt endorses mild pain. She denies current fevers, chills, SOB, chest pain, palpitations, abdominal pain, nausea, vomiting, or diarrhea. REVIEW OF SYSTEMS: As per HPI. Pt is poor historian at baseline as she has dementia; unable to provide further historical details. PHYSICAL EXAMINATION Vital Signs - 24 hr 04/18/20 04/18/20 04/18/20 06:00 09:00 10:00 Temperature 101.8 F H 99.8 F H Pulse Rate 108 H 80 Respiratory 22 H 18 Rate Blood Pressure 108/44 L 98/52 L O2 Sat by Pulse 100 100 Oximetry (%) 04/18/20 04/18/20 04/18/20 13:53 17:51 18:00 Temperature 101 F H 98.9 F Pulse Rate 77 63 62 Respiratory 20 14 18 Rate Blood Pressure 114/62 133/54 L 131/56 L O2 Sat by Pulse 95 95 Oximetry (%) 04/18/20 04/18/20 04/18/20 18:15 18:30 18:45 Temperature Pulse Rate 63 60 59 L Respiratory 17 15 15 Rate Blood Pressure 81/39 L 115/51 L 114/53 L O2 Sat by Pulse 97 98 98 Oximetry (%) 04/18/20 04/18/20 04/18/20 19:00 19:15 19:30 Temperature Pulse Rate 59 L 59 L 60 Respiratory 14 16 16 Rate Blood Pressure 118/54 L 110/50 L 108/46 L O2 Sat by Pulse 99 97 96 Oximetry (%) 04/18/20 04/18/20 19:45 20:00 Temperature 97.8 F Pulse Rate 62 57 L Respiratory 17 14 Rate Blood Pressure 100/51 L 115/43 L O2 Sat by Pulse 94 L 98 Oximetry (%) GENERAL: Pt drowsy post-operatively but arousable and able to follow commands, in no acute distress. HEAD: NCAT. EYES: Pupils equal, round and reactive to light, conjunctiva clear. EARS, NOSE, THROAT: Oropharynx clear without exudates. Moist mucous membranes. NECK: Supple; no LAD LUNGS: Breath sounds equal, clear to auscultation bilaterally. No wheezes, and no crackles. No accessory muscle use. HEART: Regular rate and rhythm, normal S1 and S2 without murmur, rub or gallop. ABDOMEN: Soft, nontender, non distended abdomen, normoactive bowel sounds. MUSCULOSKELETAL: unable to assess ROM as pt was drowsy UPPER EXTREMITIES: 2+ pulses, warm, well-perfused. No peripheral edema. LOWER EXTREMITIES: 2+ pulses, warm, well-perfused. No calf tenderness. No peripheral edema. NEUROLOGICAL: Normal speech. Unable to assess gait. SKIN: Warm, dry; surgical site clean, dry, and intact Laboratory Results - last 24 hr 04/18/20 04/18/20 06:30 06:30 WBC 16.8 H RBC 3.13 L Hgb 8.5 L Hct 25.9 L MCV 82.8 MCH 27.0 MCHC 32.6 RDW 13.7 Plt Count 409 MPV 7.3 L Absolute Neuts (auto) 15.2 H Neutrophils % 90.4 H Neutrophils % (Manual) 91.0 H Band Neutrophils % 0.0 Lymphocytes % 3.7 L D Lymphocytes % (Manual) 7.0 L Monocytes % 5.4 Monocytes % (Manual) 2 L Eosinophils % 0.1 D Eosinophils % (Manual) 0.0 Basophils % 0.4 Basophils % (Manual) 0.0 Myelocytes % (Man) 0 Promyelocytes % (Man) 0 Blast Cells % (Manual) 0 Nucleated RBC % 0 Metamyelocytes 0 Hypochromia 0 Platelet Estimate Normal Polychromasia 1+ Poikilocytosis 1+ Anisocytosis 1+ Microcytosis 1+ Macrocytosis 0 Target Cells 1+ Sodium 137 Potassium 3.5 Chloride 103 Carbon Dioxide 25 Anion Gap 9 BUN 25.0 H Creatinine 0.8 Est GFR (CKD-EPI)AfAm 82.42 Est GFR (CKD-EPI)NonAf 71.11 Random Glucose 138 H Calcium 8.7 Magnesium 1.5 L Total Bilirubin 0.3 AST 53 H ALT 20 Alkaline Phosphatase 122 H Total Protein 5.9 L Albumin 1.9 L Active Medications Generic Name Dose Route Start Last Admin Trade Name Freq PRN Reason Stop Dose Admin Acetaminophen 650 mg 04/14/20 02:03 04/18/20 06:37 Tylenol - PO 650 mg Q6H PRN Administration Fever Amino Acids 30 ml 04/17/20 17:30 04/18/20 17:14 Prosource No Carb Liquid Pkt PO Not Given BID@0800,1730 JAYE Chlorhexidine Gluconate 1 applic 04/18/20 22:00 Hibiclens For Decolonization - TP HS JAYE Citalopram Hydrobromide 20 mg 04/14/20 22:00 04/17/20 21:04 Celexa - PO 20 mg HS JAYE Administration Docusate Sodium 100 mg 04/16/20 14:00 04/18/20 13:58 Colace - PO Not Given TID JAYE Fentanyl 25 mcg 04/18/20 18:02 Sublimaze Injection - IVPUSH [id number] PRN PAIN-PACU ORDER X 4 DOSES ONLY Amino Acids 1,000 mls @ 84 mls/hr 04/17/20 12:00 04/18/20 14:46 Clinimix - IV 84 mls/hr Q12H JAYE Administration Piperacillin Sod/Tazobactam 100 mls @ 200 mls/hr 04/18/20 15:00 04/18/20 14:45 Sod 4.5 gm/ Dextrose IVPB 200 mls/hr Q6H-IV JAYE Administration Protocol Vancomycin HCl 1,000 mg in 250 mls @ 200 mls/hr 04/18/20 14:30 04/18/20 14:45 Vancomycin (Pre-Docked) IVPB 200 mls/hr Q24H JAYE Administration Protocol Lactated Ringer's 1,000 mls @ 75 mls/hr 04/18/20 18:15 04/18/20 20:00 Lactated Ringers Solution IV 0 mls ASDIR JAYE Administration Losartan Potassium 50 mg 04/16/20 10:00 04/18/20 09:31 Cozaar - PO Not Given DAILY JAYE Mirtazapine 7.5 mg 04/14/20 22:00 04/17/20 21:04 Remeron - PO 7.5 mg HS JAYE Administration Mupirocin 1 applic 04/18/20 22:00 Bactroban Ointment (For Decolonization) - NS 04/23/20 21:59 BID JAYE Ondansetron HCl 4 mg 04/18/20 18:02 Zofran Injection IVPUSH Q6H PRN NAUSEA AND/OR VOMITING Oxycodone HCl 10 mg 04/16/20 11:41 04/17/20 06:41 Roxicodone - PO 10 mg Q6H PRN Administration PAIN LEVEL 7 - 10 Oxycodone HCl 5 mg 04/16/20 11:41 Roxicodone - PO Q6H PRN PAIN LEVEL 4 - 6 Senna 2 tab 04/16/20 22:00 04/17/20 21:04 Senna - PO 2 tab HS JAYE Administration ASSESSMENT/PLAN: Pt is a 79 yo F PMHx hypertension, dementia, depression, spinal stenosis, and neuropathy with recent extensive lumbar back surgery (removal of hardware L3-L5 including L4-L5 intervertebral cage, inspection of fusion mass, L3-S1 laminectomies, L5-S1 PLIF, L3-S1 posterior instrumented spinal fusion) on 04/09/2020; now admitted s/p I&D lumbar spine with betadine dressing wound packing. POD #0. #Neuro History of dementia, depression - Continue home Mirtazapine, Citalopram - Monitor for signs of mental status changes #Pulm - Currently saturating well, without respiratory distress. - Incentive spirometer q15 minutes - Monitor for change in oxygen requirements, respiratory distress #Cardiovascular History of hypertension - Losartan 50 mg PO daily #ID Sepsis (febrile; borderline tachycardia; borderline tachypnea; leukocytosis this morning | Blood Cx + for gram neg bacilli; Urine Cx + for Pseudomonas; Wound Cx pending) S/p I&D of infected wound lumbar spine - ID consulted - F/u OR Wound Cultures - C/w IV Abx (Vancomycin and Zosyn) - continue to monitor vitals and CBC - Plan to repeat I&D with application of wound vac in 48 hrs (04/20; NPO w/IVF tomorrow at midnight), as per Dr. Cuenca #MSK s/p extensive lumbar back surgery on 04/09 s/p I&D of purulent subfascial lumbar wound - Pain control with Oxycodone prn, Fentanyl prn. NO NSAIDs per orthopedic surgery #GI Sub-optimal nutrition (negative nitrogen balance) - GI consulted - Pt needs PEG tube placement and nutritional optimization, as per Dr. Cuenca #FEN - Gentle hydration with IV LR at 75 mL/ hour - Follow BMP - Dietary consult due to sub-optimal nutrition #PPx - SCDs bilateral lower extremities - Protonix 40 daily Dispo: Will follow in ICU. Thank you for this consultative opportunity. Visit type - Emergency Visit Emergency Visit: No - New Patient This patient is new to me today: No - Critical Care Critical Care patient: Yes Total Critical Care Time (in minutes): 37 Critical Care Statement: The care of this patient involved high complexity decision making to prevent further life threatening deterioration of the patient's condition and/or to evaluate & treat vital organ system(s) failure or risk of failure. ATTENDING PHYSICIAN STATEMENT I saw and evaluated the patient. I reviewed the resident's note and discussed the case with the resident. I agree with the resident's findings and plan as documented. SUBJECTIVE: OBJECTIVE: ASSESSMENT AND PLAN:"
[2020-04-18] MEDS: MUPIROCIN 2% TOPICAL OINTMENT FOR DECOLONIZATION NS SCH (23:02)
[2020-04-18] MEDS: CHLORHEXIDINE GLUCONATE 4% CLEANSER FOR DECOLONIZATION TP SCH (23:02)
[2020-04-18] MEDS: CITALOPRAM HYDROBROMIDE 20 MG TABLET PO SCH (23:02)
[2020-04-19] MEDS: AMINO ACIDS 4.25%/D5W 1,000 ML IV SCH ×2 (00:42→12:02)
[2020-04-19] MEDS ORDERED: DEXTROSE 5%-WATER 100 ML IVPB ONE ×4 (01:37→20:54)
[2020-04-19] MEDS ORDERED: PIPERACILLIN/TAZOBACTAM 4.5 GM VIAL IVPB ONE ×4 (01:37→20:54)
[2020-04-19] MEDS: PIPERACILLIN/TAZOB 4.5 GM 4.5 GM in DEXTROSE 5%-WATER 100 ML IVPB SCH ×8 (02:03→20:58)
[2020-04-19] MEDS ORDERED: oxyCODONE HCL 5 MG TABLET PO PRN ×2 (02:19)
[2020-04-19] MEDS ORDERED: LACTATED RINGERS SOLUTION 1,000 ML IV SCH (02:19)
[2020-04-19] MEDS ORDERED: ONDANSETRON 4 MG/2 ML VIAL IVPUSH PRN (02:19)
[2020-04-19] MEDS: PANTOPRAZOLE 40 MG TABLET PO SCH (06:22)
[2020-04-19] MEDS: DOCUSATE SODIUM 100 MG CAPSULE (FP) PO SCH ×3 (06:22→21:01)
--- NOTE | 2020-04-19 08:06 | PN ---
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 (short form) - Note 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: Anesthesia Post op/pain Pt seen and examined S:Alert and awake comfortable O: Vital Signs Temperature 97.8 F 04/19/20 06:00 Pulse Rate 50 L 04/19/20 06:00 Respiratory Rate 16 04/19/20 06:00 Blood Pressure 105/43 L 04/19/20 06:00 O2 Sat by Pulse Oximetry (%) 100 04/19/20 06:00 A/P: Current Active Problems At risk for dehydration due to poor fluid intake (Acute) Bacteremia due to Gram-negative bacteria (Acute) DVT prophylaxis (Acute) Prophylactic measure (Acute) Severe sepsis (Acute) Severe sepsis (Acute) Status post spinal surgery (Acute) Toxic metabolic encephalopathy (Acute) s/p I &D of back Doing well post op Continue current care Isaac Merida MD
[2020-04-19 08:07] LABS: ALBUMIN 1.8 g/dl (3.4-5.0); BILIRUBIN,TOTAL 0.4 mg/dL (0.2-1); BLOOD UREA NITROGEN 23.4 mg/dL (7-18); CALCIUM 8.4 mg/dL (8.5-10.1); CREATININE 0.7 mg/dL (0.55-1.3); MAGNESIUM 2.1 mg/dL (1.8-2.4); POTASSIUM 3.8 mmol/L (3.5-5.1); TOT PROT 5.8 g/dl (6.4-8.2)
[2020-04-19 08:14] LABS: BASO % 0.2 % (0-2.0); HEMATOCRIT 23.7 % (32.4-45.2); HEMOGLOBIN 7.6 GM/dL (10.7-15.3); LYMPH % 3.3 % (8-40); MCH 26.8 pg (25.7-33.7); MCHC 32.3 g/dl (32.0-36.0); MEAN CELL VOLUME 82.9 fl (80-96); MEAN PLT VOLUME 7.5 fl (7.5-11.1); MONO % 4.5 % (3.8-10.2); PLATELET COUNT 369 K/MM3 (134-434); RBC 2.85 M/mm3 (3.60-5.2); WHITE BLOOD COUNT 20.4 K/mm3 (4.0-10.0)
--- NOTE | 2020-04-19 08:45 | PN ---
Physical Exam: SUBJECTIVE: Patient seen and examined, was not complaining of pain in the early am but experienced increased pain around 11am. Last BM was one day before surgery. Explained that she is unable to see but can see light vs. dark and silhouettes. OBJECTIVE: Vital Signs Period Temp Pulse Resp BP Sys/Lepe Pulse Ox Last 24 Hr 97.7 F-101 F 50-80 14-25 81-133/39-62 94-100 GENERAL: frail, sleepy but arousable, AOx1 (self), in no acute distress. HEAD: Normal with no signs of trauma. ENT: dry mucous membranes. LUNGS: Breath sounds equal and CTAB, no wheezes or crackles appreciated. HEART: Regular rate and rhythm, S1, S2 without murmurs. ABDOMEN: Soft, nontender, nondistended, active bowel sounds. EXTREMITIES: warm and perfused, no edema. SKIN: Warm, dry, increased turgor, no rashes or lesions noted. Laboratory Results - last 24 hr 04/19/20 04/19/20 04/19/20 05:43 07:20 07:20 WBC 20.4 H RBC 2.85 L Hgb 7.6 L Hct 23.7 L MCV 82.9 MCH 26.8 MCHC 32.3 RDW 14.0 Plt Count 369 MPV 7.5 Absolute Neuts (auto) 18.8 H Neutrophils % 92.0 H Lymphocytes % 3.3 L Monocytes % 4.5 Eosinophils % 0.0 D Basophils % 0.2 Nucleated RBC % 0 Sodium 137 Potassium 3.8 Chloride 103 Carbon Dioxide 28 Anion Gap 5 L BUN 23.4 H Creatinine 0.7 Est GFR (CKD-EPI)AfAm 96.86 Est GFR (CKD-EPI)NonAf 83.57 POC Glucometer 114 Random Glucose 112 H Calcium 8.4 L Magnesium 2.1 Total Bilirubin 0.4 AST 42 H ALT 21 Alkaline Phosphatase 100 Total Protein 5.8 L Albumin 1.8 L Active Medications Generic Name Dose Route Start Last Admin Trade Name Freq PRN Reason Stop Dose Admin Acetaminophen 650 mg 04/19/20 02:19 Tylenol - PO Q6H PRN Fever Amino Acids 30 ml 04/19/20 08:00 Prosource No Carb Liquid Pkt PO BID@0800,1730 JAYE Chlorhexidine Gluconate 1 applic 04/18/20 22:00 04/18/20 23:02 Hibiclens For Decolonization - TP 1 applic HS JAYE Administration Citalopram Hydrobromide 20 mg 04/19/20 22:00 Celexa - PO HS JAYE Docusate Sodium 100 mg 04/19/20 06:00 04/19/20 06:22 Colace - PO 100 mg TID JAYE Administration Fentanyl 25 mcg 04/19/20 02:19 Sublimaze Injection - IVPUSH [id number] PRN PAIN-PACU ORDER X 4 DOSES ONLY Piperacillin Sod/Tazobactam 100 mls @ 200 mls/hr 04/19/20 03:00 04/19/20 02:22 Sod 4.5 gm/ Dextrose IVPB Not Given Q6H-IV JAYE Protocol Vancomycin HCl 1,000 mg in 250 mls @ 200 mls/hr 04/19/20 14:30 Vancomycin (Pre-Docked) IVPB Q24H [facility] Protocol Amino Acids 1,000 mls @ 84 mls/hr 04/19/20 12:00 Clinimix - IV Q12H JAYE Lactated Ringer's 1,000 mls @ 75 mls/hr 04/19/20 02:19 04/19/20 02:22 Lactated Ringers Solution IV Not Given ASDIR JAYE Piperacillin Sod/Tazobactam 100 mls @ 200 mls/hr 04/19/20 03:00 04/19/20 05:51 Sod 4.5 gm/ Dextrose IVPB 04/19/20 21:29 Not Given Q6H-IV JAYE Protocol Vancomycin HCl 1,000 mg in 250 mls @ 166.667 mls/hr 04/19/20 14:30 Vancomycin (Pre-Docked) IVPB 04/19/20 15:59 Q24H [facility] Protocol Losartan Potassium 50 mg 04/19/20 10:00 Cozaar - PO DAILY JAYE Mirtazapine 7.5 mg 04/19/20 22:00 Remeron - PO HS JAYE Mupirocin 1 applic 04/18/20 22:00 04/18/20 23:02 Bactroban Ointment (For Decolonization) - NS 04/23/20 21:59 1 applic BID JAYE Administration Ondansetron HCl 4 mg 04/19/20 02:19 Zofran Injection IVPUSH Q6H PRN NAUSEA AND/OR VOMITING Oxycodone HCl 10 mg 04/19/20 02:19 Roxicodone - PO Q6H PRN PAIN LEVEL 7 - 10 Oxycodone HCl 5 mg 04/19/20 02:19 Roxicodone - PO Q6H PRN PAIN LEVEL 4 - 6 Pantoprazole Sodium 40 mg 04/19/20 07:00 04/19/20 06:22 Protonix - PO 40 mg ACBK JAYE Administration Senna 2 tab 04/19/20 22:00 Senna - PO HS JAYE ASSESSMENT/PLAN: 79 yo F PMHx hypertension, dementia, depression, spinal stenosis, and neuropathy with recent extensive lumbar back surgery (removal of hardware L3-L5 including L4-L5 intervertebral cage, inspection of fusion mass, L3-S1 laminectomies, L5-S1 PLIF, L3-S1 posterior instrumented spinal fusion) on 04/09/2020; now admitted s/p I&D of the lumbar spine PO1. Blood Cx growing gram- bacilli, Urine Cx growing Pseudomonas, and CXR remarkable for blunting of R costophrenic angle. On vanc and sozyn. Per Dr. Cuenca plan is to give patient a gastrostomy tube today due to concern for current insufficient nutrition, OR washout on Thursday, and wound vac placement + rehab next week. #Neuro History of dementia, depression - Continue home Mirtazapine, Citalopram - Monitor for signs of mental status changes #Pulm - Currently saturating well, without respiratory distress. - Incentive spirometer q15 minutes - Monitor for change in oxygen requirements, respiratory distress #Cardio History of hypertension - holding losartan due to labile BP - continue monitoring BPs #ID Sepsis (febrile, leukocytosis, positive blood and urine cultures) S/p I&D of infected wound lumbar spine decubitus ulcer - ID consulted - f/u Wound Cultures - continue Zosyn (first dose 04/18 @ 8.30am) and Vancomycin (first dose 04/18 @ 3pm) - continue to monitor vitals and CBC - Plan to repeat I&D tomorrow, NPO w/IVF at midnight, as per Dr. Cuenca #MSK s/p extensive lumbar back surgery on 04/09 s/p I&D of purulent subfascial lumbar wound - Pain control with Oxycodone and Morphine PRN. NO NSAIDs per orthopedic surgery #GI Sub-optimal nutrition (negative nitrogen balance) - GI consulted - Pt needs PEG tube placement and nutritional optimization, as per Dr. Cuenca #FEN - increased hydration: IV LR at 150 cc/h - replete lytes PRN - Dietary consult due to sub-optimal nutrition #PPx - SCDs bilateral lower extremities - Protonix 40 daily Dispo: continue ICU monitoring Visit type - Emergency Visit Emergency Visit: Yes ED Registration Date: 04/09/20 Care time: The patient presented to the Emergency Department on the above date and was hospitalized for further evaluation of their emergent condition. - New Patient This patient is new to me today: No - Critical Care Critical Care patient: Yes Total Critical Care Time (in minutes): 37 Critical Care Statement: The care of this patient involved high complexity decision making to prevent further life threatening deterioration of the patient's condition and/or to evaluate & treat vital organ system(s) failure or risk of failure. ATTENDING PHYSICIAN STATEMENT I saw and evaluated the patient. I reviewed the resident's note and discussed the case with the resident. I agree with the resident's findings and plan as documented. SUBJECTIVE: OBJECTIVE: ASSESSMENT AND PLAN:
[2020-04-19] MEDS: MUPIROCIN 2% TOPICAL OINTMENT FOR DECOLONIZATION NS SCH ×2 (09:30→21:00)
[2020-04-19 09:57] LABS: ANISOCYTOSIS 2+; MACROCYTOSIS 0; PLATELET ESTIMATE NORMAL
[2020-04-19] MEDS ORDERED: LOSARTAN POTASSIUM 50 MG TABLET (FP) PO SCH (10:00)
[2020-04-19] MEDS: AMINO ACIDS/PROTEIN HYDROLYS 30 ML LIQUID.PKT PO SCH ×2 (10:00→18:03)
[2020-04-19] MEDS ORDERED: LACTATED RINGERS SOLUTION 1000 ML INFUS.BAG IV ONE (11:39)
--- NOTE | 2020-04-19 13:00 | PN ---
Teaching Attending Note Name of Resident: Andra Fuentes ATTENDING PHYSICIAN STATEMENT I saw and evaluated the patient. I reviewed the resident's note and discussed the case with the resident. I agree with the resident's findings and plan as documented. SUBJECTIVE: Patient seen and examined in the ICU. POD #1: S/P I&D of the lumbar spine and wash out. Awake and alert. Reports surgical site pain. No CP or SOB. Marginal hemodynamics. Clinically appears dry. Intake & Output 04/16/20 04/17/20 04/18/20 04/19/20 23:59 23:59 23:59 23:59 Intake Total 0 770 2383 975 Output Total 100 450 500 Balance 0 670 1933 475 Last Vital Signs Temp Pulse Resp BP Pulse Ox 97.9 F 58 L 18 103/44 L 99 04/19/20 10:00 04/19/20 10:00 04/19/20 10:00 04/19/20 10:00 04/19/20 10:00 Active Medications Acetaminophen (Tylenol -) 650 mg PO Q6H PRN PRN Reason: Fever Amino Acids (Prosource No Carb Liquid Pkt) 30 ml PO BID@0800,1730 [facility] Chlorhexidine Gluconate (Hibiclens For Decolonization -) 1 applic TP HS [facility] Last Admin: 04/18/20 23:02 Dose: 1 applic Documented by: Citalopram Hydrobromide (Celexa -) 20 mg PO HS [facility] Docusate Sodium (Colace -) 100 mg PO TID [facility] Last Admin: 04/19/20 06:22 Dose: 100 mg Documented by: Piperacillin Sod/Tazobactam (Sod 4.5 gm/ Dextrose) 100 mls @ 200 mls/hr IVPB Q6H-IV JAYE; Protocol Last Admin: 04/19/20 02:22 Dose: Not Given Documented by: Vancomycin HCl (Vancomycin (Pre-Docked)) 1,000 mg in 250 mls @ 200 mls/hr IVPB Q24H [facility]; Protocol Amino Acids (Clinimix -) 1,000 mls @ 84 mls/hr IV Q12H [facility] Last Admin: 04/19/20 12:02 Dose: 84 mls/hr Documented by: Piperacillin Sod/Tazobactam (Sod 4.5 gm/ Dextrose) 100 mls @ 200 mls/hr IVPB Q6H-IV JAYE; Protocol Stop: 04/19/20 21:29 Last Admin: 04/19/20 08:58 Dose: 200 mls/hr Documented by: Vancomycin HCl (Vancomycin (Pre-Docked)) 1,000 mg in 250 mls @ 166.667 mls/hr IVPB Q24H JAYE; Protocol Stop: 04/19/20 15:59 Lactated Ringer's (Lactated Ringers Solution) 1,000 mls @ 150 mls/hr IV ASDIR JAYE Losartan Potassium (Cozaar -) 50 mg PO DAILY [facility] Last Admin: 04/19/20 11:06 Dose: 50 mg Documented by: Mirtazapine (Remeron -) 7.5 mg PO [facility] Morphine Sulfate (Morphine Sulfate) 2 mg IVPUSH Q4H PRN PRN Reason: PAIN LEVEL 6-10 Mupirocin (Bactroban Ointment (For Decolonization) -) 1 applic NS BID [facility] Stop: 04/23/20 21:59 Last Admin: 04/19/20 09:30 Dose: 1 applic Documented by: Ondansetron HCl (Zofran Injection) 4 mg IVPUSH Q6H PRN PRN Reason: NAUSEA AND/OR VOMITING Oxycodone HCl (Roxicodone -) 10 mg PO Q6H PRN PRN Reason: PAIN LEVEL 7 - 10 Oxycodone HCl (Roxicodone -) 5 mg PO Q6H PRN PRN Reason: PAIN LEVEL 4 - 6 Last Admin: 04/19/20 11:59 Dose: 5 mg Documented by: Pantoprazole Sodium (Protonix -) 40 mg PO ACBK [facility] Last Admin: 04/19/20 06:22 Dose: 40 mg Documented by: Senna (Senna -) 2 tab PO HS [facility] GENERAL: Awake and alert, NAD HEAD: NCAT. EYES: conjunctiva clear. EARS, NOSE, THROAT: Oropharynx clear without exudates. Moist mucous membranes. NECK: Supple; no LAD LUNGS: Breath sounds equal, clear to auscultation bilaterally. No wheezes, and no crackles. No accessory muscle use. HEART: Regular rate and rhythm, normal S1 and S2 without murmur, rub or gallop. ABDOMEN: Soft, nontender, non distended abdomen, normoactive bowel sounds. MUSCULOSKELETAL: unable to assess ROM as pt was drowsy UPPER EXTREMITIES: 2+ pulses, warm, well-perfused. No peripheral edema. LOWER EXTREMITIES: 2+ pulses, warm, well-perfused. No calf tenderness. No peripheral edema. NEUROLOGICAL: Non-focal SKIN: Warm, dry; surgical site clean, dry, and intact Laboratory Results - last 24 hr 04/18/20 04/18/20 06:30 06:30 WBC 16.8 H RBC 3.13 L Hgb 8.5 L Hct 25.9 L MCV 82.8 MCH 27.0 MCHC 32.6 RDW 13.7 Plt Count 409 MPV 7.3 L Absolute Neuts (auto) 15.2 H Neutrophils % 90.4 H Neutrophils % (Manual) 91.0 H Band Neutrophils % 0.0 Lymphocytes % 3.7 L D Lymphocytes % (Manual) 7.0 L Monocytes % 5.4 Monocytes % (Manual) 2 L Eosinophils % 0.1 D Eosinophils % (Manual) 0.0 Basophils % 0.4 Basophils % (Manual) 0.0 Myelocytes % (Man) 0 Promyelocytes % (Man) 0 Blast Cells % (Manual) 0 Nucleated RBC % 0 Metamyelocytes 0 Hypochromia 0 Platelet Estimate Normal Polychromasia 1+ Poikilocytosis 1+ Anisocytosis 1+ Microcytosis 1+ Macrocytosis 0 Target Cells 1+ Sodium 137 Potassium 3.5 Chloride 103 Carbon Dioxide 25 Anion Gap 9 BUN 25.0 H Creatinine 0.8 Est GFR (CKD-EPI)AfAm 82.42 Est GFR (CKD-EPI)NonAf 71.11 Random Glucose 138 H Calcium 8.7 Magnesium 1.5 L Total Bilirubin 0.3 AST 53 H ALT 20 Alkaline Phosphatase 122 H Total Protein 5.9 L Albumin 1.9 L ASSESSMENT/PLAN: POD #1 : S/P I&D of the lumbar spine and wash out. S/P removal of hardware L3-L5 including L4-L5 intervertebral cage, inspection of fusion mass, L3-S1 laminectomies, L5-S1 PLIF, L3-S1 posterior instrumented spinal fusion on 04/09/2020 Hypertension Dementia Depression Spinal stenosis Neuropathy IVF resuscitation Strict I & O Supplemental O2 as needed ABX per ID Local wound care Continue home meds PO as tolerated Hold anti-hypertensive agents Dr Almazan
[2020-04-19] MEDS: LACTATED RINGERS SOLUTION 1,000 ML IV SCH (13:12)
[2020-04-19] MEDS ORDERED: AMINO ACIDS 4.25%/D5W 2,000 ML IV SCH (13:45)
[2020-04-19] MEDS ORDERED: VANCOMYCIN 1 GRAM (PRE-DOCKED) 1,000 MG/250 ML BAG IVPB SCH ×2 (14:30)
--- NOTE | 2020-04-19 14:42 | OP ---
DATE OF OPERATION: DATE OF DICTATION: 04/18/2020 SURGEON: Seth Cuenca MD CUT OFF MACHINE UNLOADER: Marko Cuenca MD PREOPERATIVE DIAGNOSIS: Septic spinal wound. POSTOPERATIVE DIAGNOSIS: Septic spinal wound. OPERATION PERFORMED: 1. Incision, drainage, debridement, and irrigation deep lumbar spine wound abscess (subfascial). (40257) 2. Packing of lumbar spine wound to allow drainage of complex abscess. ([id number] ) ANESTHESIA: General. ANTIBIOTICS GIVEN: Patient brought into the room still receiving vancomycin from the floor. DESCRIPTION OF PROCEDURE: Patient positioned on a Bay frame under general anesthesia. The wound opened, extensive infection found superficially and deep after a complete removal of all Vicryl sutures. Extensive debridement performed of the soft tissue, some of the subcutaneous tissue, some of the fascia and muscle of the erector spinae, and then cleansing of the tissue with 5 L of saline, then followed by a 3-minute Betadine soak with Betadine solution, followed by repeat washout. A Betadine pack with solution inserted into the soft tissue bed, and the closure was with interrupted Lautenbach sutures. A sealed dressing applied with Ioban over a padded dressing. One of the anesthesia headrests which was equivalent to a donut cushion was taped onto her buttocks because of the start of a decubitus ulcer (grade 1). Extensive specimens were taken for culture and sensitivity. The tissues that were debrided were sent for histopathology. PLAN: To bring her back in 48 hours. If the tissues are less purulent and exudative in nature, a Wound VAC will be applied, and that hopefully will be left for another 48 hours to stimulate angiogenesis and granulation tissue and then facilitate a delayed primary closure. This all depends on the state of the tissues. In the meantime, the plan is to improve her general medical status by placed her in the ICU. In addition to this, a consult to General Surgery for the insertion of a PEG tube into the stomach, that is a gastrostomy tube, for feeding purposes. Patient appears to be in negative nitrogen balance. MD SHREYA Mcfarland/[id number] MTDD
[2020-04-19] MEDS ORDERED: MULTIVIT INJ. ADULT COMBO WITH VIT K 1 COMBO 10 ML VIAL IV SCH (15:00)
[2020-04-19] MEDS: THIAMINE HCL 200 MG/2 ML VIAL IVPB SCH (15:25)
--- NOTE | 2020-04-19 19:45 | CON.GI ---
Consult Consult Specialty:: Gastroenterology Referred by:: Seth Cuenca MD Reason for Consultation:: PEG insertion - History of Present Illness Chief Complaint: Back pain History of Present Illness: 79F was admitted to undergo removal of hardware, L3-S1 laminectomies and L5- E7admlun on 04/09/[address] Cuenca. The nurse informs me that Makenna in suspected to have swallowing difficulties. There are 2 health care proxies, the son Samreen and niece Briana. I spoke with both of them and learned that Makenna lives at home with a 24 hour aid. She was ambulating until recently. They also describe episodes of fecal and urinary incontinence which the son believes led to his mother skipping meals. Her loss of ambulatory capacity has depressed her. He also feels that his mother eats well when she has food that she likes. She does not like the health aid's diet. The son tells me that his mother ate pasta with vigor for him just a few days ago. She does have a DNR but never expressed feeding tube sustenance. Makenna tells me that she does not want a feeding tube. 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 cauda equina syndrome) Cardio/Vascular: Yes: HTN Heme/Onc: Yes: Anemia Psych: Yes: Depression Musculoskeletal: Yes: Other (Spinal stenosis) Endocrine: Yes: Other (Neuropathy) - Past Surgical History Past Surgical History: Yes: Laminectomy (2013 lumbar laminectomies) - Alcohol/Substance Use Hx Alcohol Use: No - Smoking History Smoking history: Former smoker Have you smoked in the past 12 months: Yes If you are a former smoker, when did you quit?: 5months ago - Social History Usual Living Arrangement: Other (home health aid) Place of : [facility] Home Medications - Allergies Allergies/Adverse Reactions: Allergies Allergy/AdvReac Type Severity Reaction Status Date / Time No Known Allergies Allergy Verified 04/09/20 06:53 - Home Medications Home Medications: Ambulatory Orders Citalopram Hydrobromide [Citalopram HBr] 20 mg PO HS 02/18/20 Losartan Potassium [Cozaar] 25 mg PO DAILY 02/18/20 Mirtazapine 7.5 mg PO HS 04/09/20 Review of Systems Unable to obtain ROS, reason: dementia Physical Exam-GI Vital Signs: Vital Signs Temperature 97.8 F 04/19/20 18:00 Pulse Rate 59 L 04/19/20 18:00 Respiratory Rate 18 04/19/20 18:00 Blood Pressure 120/44 L 04/19/20 18:00 O2 Sat by Pulse Oximetry (%) 94 L 04/19/20 12:21 CBC,CMP WBC 20.4 K/mm3 (4.0-10.0) H 04/19/20 07:20 RBC 2.85 M/mm3 (3.60-5.2) L 04/19/20 07:20 Hgb 7.6 GM/dL (10.7-15.3) L 04/19/20 07:20 Hct 23.7 % (32.4-45.2) L 04/19/20 07:20 MCV 82.9 fl (80-96) 04/19/20 07:20 MCH 26.8 pg (25.7-33.7) 04/19/20 07:20 MCHC 32.3 g/dl (32.0-36.0) 04/19/20 07:20 RDW 14.0 % (11.6-15.6) 04/19/20 07:20 Plt Count 369 K/MM3 (134-434) 04/19/20 07:20 MPV 7.5 fl (7.5-11.1) 04/19/20 07:20 Absolute Neuts (auto) 18.8 K/mm3 (1.5-8.0) H 04/19/20 07:20 Neutrophils % 92.0 % (42.8-82.8) H 04/19/20 07:20 Neutrophils % (Manual) 85.1 % (42.8-82.8) H 04/19/20 07:20 Band Neutrophils % 0.0 % 04/19/20 07:20 Lymphocytes % 3.3 % (8-40) L 04/19/20 07:20 Lymphocytes % (Manual) 11.9 % (8-40) D 04/19/20 07:20 Monocytes % 4.5 % (3.8-10.2) 04/19/20 07:20 Monocytes % (Manual) 3 % (3.8-10.2) L 04/19/20 07:20 Eosinophils % 0.0 % (0-4.5) D 04/19/20 07:20 Eosinophils % (Manual) 0.0 % (0-4.5) 04/19/20 07:20 Basophils % 0.2 % (0-2.0) 04/19/20 07:20 Basophils % (Manual) 0.0 % (0-2.0) 04/19/20 07:20 Myelocytes % (Man) 0 % (0-2) 04/19/20 07:20 Promyelocytes % (Man) 0 % (0-2) 04/19/20 07:20 Blast Cells % (Manual) 0 % (0-0) 04/19/20 07:20 Nucleated RBC % 0 % (0-0) 04/19/20 07:20 Metamyelocytes 0 % (0-2) 04/19/20 07:20 Hypochromia 0 04/19/20 07:20 Platelet Estimate Normal 04/19/20 07:20 Platelet Comment Present 04/12/20 08:40 Polychromasia 1+ 04/19/20 07:20 Poikilocytosis 0 04/19/20 07:20 Anisocytosis 2+ 04/19/20 07:20 Microcytosis 2+ 04/19/20 07:20 Macrocytosis 0 04/19/20 07:20 Target Cells 1+ 04/18/20 06:30 Sodium 137 mmol/L (136-145) 04/19/20 07:20 Potassium 3.8 mmol/L (3.5-5.1) 04/19/20 07:20 Chloride 103 mmol/L (98-107) 04/19/20 07:20 Carbon Dioxide 28 mmol/L (21-32) 04/19/20 07:20 Anion Gap 5 MMOL/L (8-16) L 04/19/20 07:20 BUN 23.4 mg/dL (7-18) H 04/19/20 07:20 Creatinine 0.7 mg/dL (0.55-1.3) 04/19/20 07:20 Est GFR (CKD-EPI)AfAm 96.86 04/19/20 07:20 Est GFR (CKD-EPI)NonAf 83.57 04/19/20 07:20 POC Glucometer 114 UNITS (80-120) 04/19/20 05:43 Random Glucose 112 mg/dL (74-106) H 04/19/20 07:20 Lactic Acid 0.9 mmol/L (0.4-2.0) 04/17/20 12:10 Calcium 8.4 mg/dL (8.5-10.1) L 04/19/20 07:20 Phosphorus 2.9 mg/dL (2.5-4.9) 04/14/20 08:02 Magnesium 2.1 mg/dL (1.8-2.4) 04/19/20 07:20 Total Bilirubin 0.4 mg/dL (0.2-1) 04/19/20 07:20 AST 42 U/L (15-37) H 04/19/20 07:20 ALT 21 U/L (13-61) 04/19/20 07:20 Alkaline Phosphatase 100 U/L (45-117) 04/19/20 07:20 Total Protein 5.8 g/dl (6.4-8.2) L 04/19/20 07:20 Albumin 1.8 g/dl (3.4-5.0) L 04/19/20 07:20 Current Medications Generic Name Dose Route Start Last Admin Trade Name Freq PRN Reason Stop Dose Admin Acetaminophen 650 mg 04/19/20 02:19 Tylenol - PO Q6H PRN Fever Amino Acids 30 ml 04/19/20 08:00 04/19/20 18:03 Prosource No Carb Liquid Pkt PO 30 ml BID@0800,1730 JAYE Administration Chlorhexidine Gluconate 1 applic 04/18/20 22:00 04/18/20 23:02 Hibiclens For Decolonization - TP 1 applic HS JAYE Administration Citalopram Hydrobromide 20 mg 04/19/20 22:00 Celexa - PO HS JAYE Docusate Sodium 100 mg 04/19/20 06:00 04/19/20 15:26 Colace - PO 100 mg TID JAYE Administration Amino Acids 1,000 mls @ 84 mls/hr 04/19/20 12:00 04/19/20 12:02 Clinimix - IV 84 mls/hr Q12H JAYE Administration Lactated Ringer's 1,000 mls @ 150 mls/hr 04/19/20 11:32 04/19/20 13:12 Lactated Ringers Solution IV 150 mls/hr ASDIR JAYE Administration Vancomycin HCl 1,000 mg in 250 mls @ 166.667 mls/hr 04/20/20 02:00 Vancomycin (Pre-Docked) IVPB Q12H AJYE Protocol Piperacillin Sod/Tazobactam 100 mls @ 200 mls/hr 04/19/20 21:00 Sod 4.5 gm/ Dextrose IVPB Q6H-IV JAYE Protocol Mirtazapine 7.5 mg 04/19/20 22:00 Remeron - PO HS JAYE Morphine Sulfate 2 mg 04/19/20 12:02 Morphine Sulfate IVPUSH Q4H PRN PAIN LEVEL 6-10 Multivitamins/Minerals 10 ml 04/20/20 00:00 Infuvite Adult - IV Q24H JAYE Mupirocin 1 applic 04/18/20 22:00 04/19/20 09:30 Bactroban Ointment (For Decolonization) - NS 04/23/20 21:59 1 applic BID JAYE Administration Ondansetron HCl 4 mg 04/19/20 02:19 Zofran Injection IVPUSH Q6H PRN NAUSEA AND/OR VOMITING Oxycodone HCl 10 mg 04/19/20 02:19 Roxicodone - PO Q6H PRN PAIN LEVEL 7 - 10 Oxycodone HCl 5 mg 04/19/20 02:19 04/19/20 11:59 Roxicodone - PO 5 mg Q6H PRN Administration PAIN LEVEL 4 - 6 Pantoprazole Sodium 40 mg 04/19/20 07:00 04/19/20 06:22 Protonix - PO 40 mg ACBK JAYE Administration Senna 2 tab 04/19/20 22:00 Senna - PO HS JAYE Thiamine HCl 200 mg 04/19/20 13:45 04/19/20 15:25 Vitamin B1 Injection - IVPB 200 mg DAILY JAYE Administration Labs: CBC, BMP 04/19/20 07:20 04/19/20 07:20 Problem List - Problems (1) At risk for dehydration due to poor fluid intake Code(s): Z91.89 - OTH PERSONAL RISK FACTORS, NOT ELSEWHERE CLASSIFIED (2) Status post spinal surgery Code(s): Z98.890 - OTHER SPECIFIED POSTPROCEDURAL STATES (3) Hypertension Code(s): I10 - ESSENTIAL (PRIMARY) HYPERTENSION (4) Radiculopathy of lumbosacral region Code(s): M54.17 - RADICULOPATHY, LUMBOSACRAL REGION (5) Dementia Code(s): F03.90 - UNSPECIFIED DEMENTIA WITHOUT BEHAVIORAL DISTURBANCE (6) Depression Code(s): F32.9 - MAJOR DEPRESSIVE DISORDER, SINGLE EPISODE, UNSPECIFIED (7) Bacteremia due to Gram-negative bacteria Code(s): R78.81 - BACTEREMIA Assessment/Plan Impression: - Makenna should have a formal swallowing evaluation before considering a G tube insertion. If necessary then this can best be done by IR which avoids MAC and endoscopy. If feedings are needed for nutritional support in the interim this can be accomplished by insertion of a soft 12 Fr NG tube until it can be determined whether or not a G tube is necessary. I have discussed IR vs endoscopic PEG G tube insertions with the niece and her son. The son does not w ant an G tube placed at this time but has been made aware of the risks of perforation, hemorrhage, infection and G tube avulsion to facilitate this decision at a later date Plan: -- Will consult Ju Mccall for swallowing evaluation before NG is inserted -- PPI for stress gastritis prophylaxis I discussed this plan with the ICU nurse
--- NOTE | 2020-04-19 20:34 | PN ---
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, Physician History of Present Illness: Pt is in the ICU s/p Lumbar spine washout POD#1. Resting comfortably and denies pain at this time. Afebrile today. - Current Medication List Current Medications: Active Medications Acetaminophen (Tylenol -) 650 mg PO Q6H PRN PRN Reason: Fever Amino Acids (Prosource No Carb Liquid Pkt) 30 ml PO BID@0800,1730 [facility] Last Admin: 04/19/20 18:03 Dose: 30 ml Documented by: Chlorhexidine Gluconate (Hibiclens For Decolonization -) 1 applic TP HS [facility] Last Admin: 04/18/20 23:02 Dose: 1 applic Documented by: Citalopram Hydrobromide (Celexa -) 20 mg PO HS [facility] Docusate Sodium (Colace -) 100 mg PO TID [facility] Last Admin: 04/19/20 15:26 Dose: 100 mg Documented by: Amino Acids (Clinimix -) 1,000 mls @ 84 mls/hr IV Q12H [facility] Last Admin: 04/19/20 12:02 Dose: 84 mls/hr Documented by: Lactated Ringer's (Lactated Ringers Solution) 1,000 mls @ 150 mls/hr IV ASDIR [facility] Last Admin: 04/19/20 13:12 Dose: 150 mls/hr Documented by: Vancomycin HCl (Vancomycin (Pre-Docked)) 1,000 mg in 250 mls @ 166.667 mls/hr IVPB Q12H [facility]; Protocol Piperacillin Sod/Tazobactam (Sod 4.5 gm/ Dextrose) 100 mls @ 200 mls/hr IVPB Q6H-IV JAYE; Protocol Mirtazapine (Remeron -) 7.5 mg PO HS [facility] Morphine Sulfate (Morphine Sulfate) 2 mg IVPUSH Q4H PRN PRN Reason: PAIN LEVEL 6-10 Multivitamins/Minerals (Infuvite Adult -) 10 ml IV Q24H [facility] Mupirocin (Bactroban Ointment (For Decolonization) -) 1 applic NS BID [facility] Stop: 04/23/20 21:59 Last Admin: 04/19/20 09:30 Dose: 1 applic Documented by: Ondansetron HCl (Zofran Injection) 4 mg IVPUSH Q6H PRN PRN Reason: NAUSEA AND/OR VOMITING Oxycodone HCl (Roxicodone -) 10 mg PO Q6H PRN PRN Reason: PAIN LEVEL 7 - 10 Oxycodone HCl (Roxicodone -) 5 mg PO Q6H PRN PRN Reason: PAIN LEVEL 4 - 6 Last Admin: 04/19/20 11:59 Dose: 5 mg Documented by: Pantoprazole Sodium (Protonix -) 40 mg PO ACBK JAYE Last Admin: 04/19/20 06:22 Dose: 40 mg Documented by: Senna (Senna -) 2 tab PO HS [facility] Thiamine HCl (Vitamin B1 Injection -) 200 mg IVPB DAILY [facility] Last Admin: 04/19/20 15:25 Dose: 200 mg Documented by: - Objective Vital Signs: Vital Signs Temperature 98.4 F 04/19/20 20:00 Pulse Rate 66 04/19/20 20:00 Respiratory Rate 14 04/19/20 20:00 Blood Pressure 109/44 L 04/19/20 20:00 O2 Sat by Pulse Oximetry (%) 94 L 04/19/20 20:08 Constitutional: Yes: No Distress, Calm Cardiovascular: Yes: Regular Rate and Rhythm Respiratory: Yes: Regular Gastrointestinal: Yes: Normal Bowel Sounds, Soft Genitourinary: Yes: [place] Present Wound/Incision: Yes: Dressing Dry and Intact Neurological: Yes: Alert Labs: CBC, BMP 04/19/20 07:20 04/19/20 07:20 Laboratory Results - last 24 hr 04/17/20 04/19/20 04/19/20 16:10 05:43 07:20 WBC 20.4 H RBC 2.85 L Hgb 7.6 L Hct 23.7 L MCV 82.9 MCH 26.8 MCHC 32.3 RDW 14.0 Plt Count 369 MPV 7.5 Absolute Neuts (auto) 18.8 H Neutrophils % 92.0 H Neutrophils % (Manual) 85.1 H Band Neutrophils % 0.0 Lymphocytes % 3.3 L Lymphocytes % (Manual) 11.9 D Monocytes % 4.5 Monocytes % (Manual) 3 L Eosinophils % 0.0 D Eosinophils % (Manual) 0.0 Basophils % 0.2 Basophils % (Manual) 0.0 Myelocytes % (Man) 0 Promyelocytes % (Man) 0 Blast Cells % (Manual) 0 Nucleated RBC % 0 Metamyelocytes 0 Hypochromia 0 Platelet Estimate Normal Polychromasia 1+ Poikilocytosis 0 Anisocytosis 2+ Microcytosis 2+ Macrocytosis 0 Sodium Potassium Chloride Carbon Dioxide Anion Gap BUN Creatinine Est GFR (CKD-EPI)AfAm Est GFR (CKD-EPI)NonAf POC Glucometer 114 Random Glucose Calcium Magnesium Total Bilirubin AST ALT Alkaline Phosphatase Total Protein Albumin COVID-19 (ESTER) Not detected 04/19/20 07:20 WBC RBC Hgb Hct MCV MCH MCHC RDW Plt Count MPV Absolute Neuts (auto) Neutrophils % Neutrophils % (Manual) Band Neutrophils % Lymphocytes % Lymphocytes % (Manual) Monocytes % Monocytes % (Manual) Eosinophils % Eosinophils % (Manual) Basophils % Basophils % (Manual) Myelocytes % (Man) Promyelocytes % (Man) Blast Cells % (Manual) Nucleated RBC % Metamyelocytes Hypochromia Platelet Estimate Polychromasia Poikilocytosis Anisocytosis Microcytosis Macrocytosis Sodium 137 Potassium 3.8 Chloride 103 Carbon Dioxide 28 Anion Gap 5 L BUN 23.4 H Creatinine 0.7 Est GFR (CKD-EPI)AfAm 96.86 Est GFR (CKD-EPI)NonAf 83.57 POC Glucometer Random Glucose 112 H Calcium 8.4 L Magnesium 2.1 Total Bilirubin 0.4 AST 42 H ALT 21 Alkaline Phosphatase 100 Total Protein 5.8 L Albumin 1.8 L COVID-19 (ESTER) Microbiology 04/18/20 17:34 Wound Gram Stain - Final 04/17/20 12:14 Blood - Peripheral Venous Blood Culture - Final Non Lactose Fermenting Gnb 04/17/20 12:05 Urine - Urine - Catheterized Urine Culture - Final Pseudomonas Aeruginosa 04/17/20 12:10 Blood - Peripheral Venous Blood Culture - Final Escherichia Coli Problem List - Problems (1) Severe sepsis Code(s): A41.9 - SEPSIS, UNSPECIFIED ORGANISM; R65.20 - SEVERE SEPSIS WITHOUT SEPTIC SHOCK (2) Bacteremia due to Gram-negative bacteria Code(s): R78.81 - BACTEREMIA (3) Status post spinal surgery Code(s): Z98.890 - OTHER SPECIFIED POSTPROCEDURAL STATES (4) Toxic metabolic encephalopathy Code(s): G92 - TOXIC ENCEPHALOPATHY (5) Urinary tract infection Code(s): N39.0 - URINARY TRACT INFECTION, SITE NOT SPECIFIED Qualifiers: Urinary tract infection type: site unspecified Hematuria presence: without hematuria Qualified Code(s): N39.0 - Urinary tract infection, site not specified Assessment/Plan 79 y.o. female with PMH of dementia, HTN, depression, lumbar stenosis s/p stover inectomy, neuropathy who underwent removal of L3-L5 hardware, L3-S1 laminectomies, L5-S1 PLIF/L3-S1 PSIF on 04/09/20 and yesterday noted to develop fever up to 101.8F and increase in wbc to 16.8K today along with lethargy and mild hypotension. Severe Sepsis Gram negative/E. coli Bacteremia Pseudomonas UTI s/p lumbar washout POD#1 -- pt in ICU post surgery -- continue Zosyn/Vancomycin IV, monitor renal function -- follow up final results of blood and intra-op wound cultures -- wbc trending up - repeat cbc in a.m. -- pt now afebrile cc time: 37 min
[2020-04-19] MEDS: CHLORHEXIDINE GLUCONATE 4% CLEANSER FOR DECOLONIZATION TP SCH (21:01)
[2020-04-19] MEDS: MIRTAZAPINE 15 MG TABLET (FP) PO SCH (21:01)
[2020-04-19] MEDS: SENNOSIDES 8.6MG TABLET (FP) PO SCH (21:01)
[2020-04-19] MEDS ORDERED: PT OWN MED DRAWER 7, Y5N ONE (21:04)
[2020-04-19] MEDS: CITALOPRAM HYDROBROMIDE 20 MG TABLET PO SCH (21:07)
[2020-04-20] MEDS ORDERED: MULTIVIT INJ. ADULT COMBO WITH VIT K 1 COMBO 10 ML VIAL IV SCH
[2020-04-20] MEDS: AMINO ACIDS 4.25%/D5W 1,000 ML IV SCH ×3 (01:09→12:15)
[2020-04-20] MEDS: MULTIVIT INJ. ADULT COMBO WITH VIT K 1 COMBO 10 ML VIAL IV SCH ×2 (01:09→10:03)
[2020-04-20] MEDS: VANCOMYCIN 1 GRAM (PRE-DOCKED) 1,000 MG/250 ML BAG IVPB SCH ×2 (01:14→13:54)
[2020-04-20] MEDS ORDERED: DEXTROSE 5%-WATER 100 ML IVPB ONE ×4 (03:52→21:08)
[2020-04-20] MEDS ORDERED: PIPERACILLIN/TAZOBACTAM 4.5 GM VIAL IVPB ONE ×4 (03:52→21:08)
[2020-04-20] MEDS: PIPERACILLIN/TAZOB 4.5 GM 4.5 GM in DEXTROSE 5%-WATER 100 ML IVPB SCH ×5 (03:59→21:13)
[2020-04-20] MEDS: DOCUSATE SODIUM 100 MG CAPSULE (FP) PO SCH ×3 (05:08→21:14)
[2020-04-20 06:23] LABS: ARTERIAL BLD GAS O2 SATURATION 97.9 mmHg (95-98); ARTERIAL BLOOD GAS BASE EXCESS 1.2 mmol/L (-2-2); ARTERIAL BLOOD GAS PO2 106.6 mmHg (80-100); ARTERIAL BLOOD GAS pH 7.398 (7.350-7.450)
[2020-04-20] MEDS: PANTOPRAZOLE 40 MG TABLET PO SCH (06:26)
[2020-04-20 06:33] LABS: ALLENS TEST POSITIVE
[2020-04-20] MEDS: LACTATED RINGERS SOLUTION 1,000 ML IV SCH ×2 (07:00→16:30)
[2020-04-20 07:08] LABS: RETICULOCYTES 0.98 % (0.5-1.5)
[2020-04-20] MEDS: AMINO ACIDS/PROTEIN HYDROLYS 30 ML LIQUID.PKT PO SCH ×2 (08:17→18:45)
[2020-04-20 09:44] LABS: ALBUMIN 1.8 g/dl (3.4-5.0); BILIRUBIN,TOTAL 0.2 mg/dL (0.2-1); BLOOD UREA NITROGEN 20.4 mg/dL (7-18); CREATININE 0.7 mg/dL (0.55-1.3); MAGNESIUM 1.8 mg/dL (1.8-2.4); PHOSPHOROUS 2.4 mg/dL (2.5-4.9); POTASSIUM 3.6 mmol/L (3.5-5.1); TOT PROT 5.9 g/dl (6.4-8.2)
[2020-04-20] MEDS: THIAMINE HCL 200 MG/2 ML VIAL IVPB SCH (10:00)
[2020-04-20] MEDS: MUPIROCIN 2% TOPICAL OINTMENT FOR DECOLONIZATION NS SCH ×2 (10:00→21:13)
--- NOTE | 2020-04-20 10:44 | CONSULT ---
Admitting History and Physical - Admission History of Present Illness: 79 year old female with history of hypertension, dementia, depression, spinal stenosis, neuropathy she is s/p removal of L3-L5 hardware, including L4-L5 intervertebral cage, L3-S1 laminectomy, L5-S1 PLIF, L3-S1 posterior instrumented spinal fusion. transferred back to the ICU. -Pt had extensive lumbar back surgery on 04/09. Pt became septic (febrile, +blood cultures). s/p I&D of infected wound lumbar spine and wash out. Clinimix was ordered 04/[address]-Pt with poor oral intake while on the floors. Pt was consuming <25% of meals. Pt severely deconditioned with dementia. Pt started on clinimix for poor intake. Plan was for PEG placement, GI consulted. Decision regarding PEG insertion being discussed by family. Swallowing evaluation ordered before NGT to be inserted Pt has been on soft diet, thin liquids and supplements since 04/14 Selected Entries 04/16/20 04/17/20 04/17/20 10:00 14:23 20:04 Breakfast 25% Lunch 25% Supper 0 0 Temperature Blood Pressure O2 Sat by Pulse Oximetry (%) Oxygen Delivery Method Oxygen Flow Rate 04/19/20 04/20/20 04/20/20 23:00 00:00 02:00 Breakfast Lunch Supper 0 Temperature 98.5 F 97.5 F L Blood Pressure 133/50 L 126/54 L O2 Sat by Pulse 62 L 100 Oximetry (%) Oxygen Delivery Method Oxygen Flow Rate 04/20/20 04/20/20 04/20/20 04:00 06:00 08:00 Breakfast Lunch Supper 0 Temperature 97.5 F L 97.8 F 98.1 F Blood Pressure 120/48 L 151/56 L 134/56 L O2 Sat by Pulse 100 100 100 Oximetry (%) Oxygen Delivery Method Oxygen Flow Rate 04/20/20 04/20/20 09:00 10:00 Breakfast Lunch Supper Temperature 98.4 F Blood Pressure 124/49 L O2 Sat by Pulse 96 96 Oximetry (%) Oxygen Delivery Nasal Cannula Method Oxygen Flow 2 Rate Laboratory Tests 02/19/20 04/05/20 04/16/20 00:00 10:15 06:40 WBC 12.8 H COVID-19 (ESTER) Not detected Not detected 04/17/20 04/17/20 04/18/20 09:45 16:10 06:30 WBC 12.5 H 16.8 H COVID-19 (ESTER) Not detected 04/19/20 07:20 WBC 20.4 H COVID-19 (ESTER) This is my first consult on this pt. NPO pending surgery today. 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 cauda equina syndrome) Cardiovascular: Yes: HTN Heme/Onc: Yes: Anemia Psych: Yes: Depression Musculoskeletal: Yes: Other (Spinal stenosis) Endocrine: Yes: Other (Neuropathy) - Past Surgical History Past Surgical History: Yes: Laminectomy (2013 lumbar laminectomies) - Advance Directives Advance Directives: Yes: Living Will - Smoking History Smoking history: Former smoker Have you smoked in the past 12 months: Yes If you are a former smoker, when did you quit?: 5months ago - Alcohol/Substance Use Hx Alcohol Use: No History - Admission Reason For Visit: INTERVERTEBRAL DISC DISORDERS - Diagnostics X-ray: Report Reviewed - General Mental Status: Awake and Alert, Able to Follow Commands, Confused (oriented to hospital, "89 yo" 1993) Attention: Distractible, Mild Impairment Ability to Follow Directions: Fair Head/Neck Control: Fair - Hearing Hearing: Functional Hearing: Normal Speech Evaluation - Communication Primary Language: [place] Communication: Yes: Simple Responses - Speech Production Able to Make Needs Known: Yes: WNL Intelligibility: Yes: Mildly Impaired - Speech Characteristics Voice Loudness: Normal Voice Pitch: Yes: Normal Voice Phonatory-based Quality: Yes: Normal Speech Clarity: < 100% Nasal Resonance: Normal Articulation: Yes: Imprecise (slight. left facial weakness) - Language/Auditory Comprehension Follows: Yes: 1 Stage Simple Commands Observation: Able to respond to yes/no queries: Yes, Yes/No Confusion: No, Comprehends Conversational Speech: Yes - Language/Verbal Expression Able to Communicate Wants and Needs: Yes: WNL - Swallow Evaluation/Bedside Assessment Current Nutritional Intake: NPO Oral Secretions: Yes: WFL Dentition: Yes: Adequate Facial Symmetry at Rest: Facial Droop Left Facial Symmetry on Retraction: Facial Droop Left Lingual Movement: Symmetric Recommendations - Speech Evaluation, Impression/Plan Impression: NPO for sx. h/o impaired po intake. Oriented to hospital only.Verbal. Sleepy said to be baseline. Left facial. Left UE/hand seem weaker than right to me but thought by medical team to be sec to iv. - Dysphagia Impressions/Plan Dysphagia Impressions: Ongoing Evaluation *Silent aspiration: cannot be R/O at bedside - Recommendations Diet Consistency: Dysphagia Pureed Medication Administration: Crushed with applesauce Liquids: Thin Liquids Supplement: Ensure, Magic Cup, Ensure Pudding
[2020-04-20] MEDS ORDERED: VANCOMYCIN 1,000 MG VIAL (RESTRICTED TO ID ONLY) ONE (10:53)
[2020-04-20 10:59] LABS: BASO % 0.5 % (0-2.0); EOS % 1.3 % (0-4.5); HEMOGLOBIN 8.3 GM/dL (10.7-15.3); LYMPH % 14.4 % (8-40); MCH 26.6 pg (25.7-33.7); MCHC 31.8 g/dl (32.0-36.0); MEAN CELL VOLUME 83.4 fl (80-96); MEAN PLT VOLUME 8.1 fl (7.5-11.1); MONO % 6.8 % (3.8-10.2); PLATELET COUNT 433 K/MM3 (134-434); RBC 3.11 M/mm3 (3.60-5.2); RDW 14.2 % (11.6-15.6); WHITE BLOOD COUNT 12.3 K/mm3 (4.0-10.0)
--- NOTE | 2020-04-20 13:11 | PN ---
Teaching Attending Note Name of Resident: Andra Fuentes ATTENDING PHYSICIAN STATEMENT I saw and evaluated the patient. I reviewed the resident's note and discussed the case with the resident. I agree with the resident's findings and plan as documented. SUBJECTIVE: Patient seen and examined in the ICU. POD #2: S/P I&D of the lumbar spine and wash out. Awake and alert. Reports less surgical site pain. No CP or SOB. Hemodynamics improved. Intake & Output 04/17/20 04/18/20 04/19/20 04/20/20 23:59 23:59 23:59 23:59 Intake Total 770 2383 2695 3040 Output Total 597 726 6154 1200 Balance 670 1933 1045 1840 Weight 140 lb 12.8 oz Last Vital Signs Temp Pulse Resp BP Pulse Ox 98.4 F 61 17 124/49 L 96 04/20/20 10:00 04/20/20 10:00 04/20/20 10:00 04/20/20 10:00 04/20/20 10:00 Active Medications Acetaminophen (Tylenol -) 650 mg PO Q6H PRN PRN Reason: Fever Amino Acids (Prosource No Carb Liquid Pkt) 30 ml PO BID@0800,1730 [facility] Last Admin: 04/20/20 08:17 Dose: Not Given Documented by: Chlorhexidine Gluconate (Hibiclens For Decolonization -) 1 applic TP [facility] Last Admin: 04/19/20 21:01 Dose: 1 applic Documented by: Citalopram Hydrobromide (Celexa -) 20 mg PO [facility] Last Admin: 04/19/20 21:07 Dose: 20 mg Documented by: Docusate Sodium (Colace -) 100 mg PO TID [facility] Last Admin: 04/20/20 05:08 Dose: Not Given Documented by: Amino Acids (Clinimix -) 1,000 mls @ 84 mls/hr IV Q12H [facility] Last Admin: 04/20/20 12:15 Dose: Not Given Documented by: Lactated Ringer's (Lactated Ringers Solution) 1,000 mls @ 150 mls/hr IV ASDIR [facility] Last Admin: 04/20/20 07:00 Dose: 150 mls/hr Documented by: Vancomycin HCl (Vancomycin (Pre-Docked)) 1,000 mg in 250 mls @ 166.667 mls/hr IVPB Q12H [facility]; Protocol Last Admin: 04/20/20 01:14 Dose: 166.667 mls/hr Documented by: Piperacillin Sod/Tazobactam (Sod 4.5 gm/ Dextrose) 100 mls @ 200 mls/hr IVPB Q6H-IV JAYE; Protocol Last Admin: 04/20/20 08:26 Dose: 200 mls/hr Documented by: Mirtazapine (Remeron -) 7.5 mg PO HS [facility] Last Admin: 04/19/20 21:01 Dose: 7.5 mg Documented by: Morphine Sulfate (Morphine Sulfate) 2 mg IVPUSH Q4H PRN PRN Reason: PAIN LEVEL 6-10 Multivitamins/Minerals (Infuvite Adult -) 10 ml IV Q24H [facility] Last Admin: 04/20/20 10:03 Dose: 10 ml Documented by: Mupirocin (Bactroban Ointment (For Decolonization) -) 1 applic NS BID [facility] Stop: 04/23/20 21:59 Last Admin: 04/20/20 10:00 Dose: 1 applic Documented by: Ondansetron HCl (Zofran Injection) 4 mg IVPUSH Q6H PRN PRN Reason: NAUSEA AND/OR VOMITING Oxycodone HCl (Roxicodone -) 10 mg PO Q6H PRN PRN Reason: PAIN LEVEL 7 - 10 Last Admin: 04/19/20 22:34 Dose: 10 mg Documented by: Oxycodone HCl (Roxicodone -) 5 mg PO Q6H PRN PRN Reason: PAIN LEVEL 4 - 6 Last Admin: 04/19/20 11:59 Dose: 5 mg Documented by: Pantoprazole Sodium (Protonix -) 40 mg PO ACBK [facility] Last Admin: 04/20/20 06:26 Dose: Not Given Documented by: Senna (Senna -) 2 tab PO [facility] Last Admin: 04/19/20 21:01 Dose: 2 tab Documented by: Thiamine HCl (Vitamin B1 Injection -) 200 mg IVPB DAILY [facility] Last Admin: 04/20/20 10:00 Dose: 200 mg Documented by: GENERAL: Awake and alert, NAD HEAD: NCAT. EYES: conjunctiva clear. EARS, NOSE, THROAT: Oropharynx clear without exudates. Moist mucous membranes. NECK: Supple; no LAD LUNGS: Breath sounds equal, clear to auscultation bilaterally. No wheezes, and no crackles. No accessory muscle use. HEART: Regular rate and rhythm, normal S1 and S2 without murmur, rub or gallop. ABDOMEN: Soft, nontender, non distended abdomen, normoactive bowel sounds. MUSCULOSKELETAL: unable to assess ROM as pt was drowsy UPPER EXTREMITIES: 2+ pulses, warm, well-perfused. No peripheral edema. LOWER EXTREMITIES: 2+ pulses, warm, well-perfused. No calf tenderness. No peripheral edema. NEUROLOGICAL: Non-focal SKIN: Warm, dry; surgical site clean, dry, and intact Laboratory Results - last 24 hr 04/20/20 04/20/20 04/20/20 05:40 05:40 05:48 WBC 12.3 H RBC 3.11 L Hgb 8.3 L Hct 26.0 L MCV 83.4 MCH 26.6 MCHC 31.8 L RDW 14.2 Plt Count 433 MPV 8.1 Absolute Neuts (auto) 9.5 H Neutrophils % 77.0 Lymphocytes % 14.4 D Monocytes % 6.8 Eosinophils % 1.3 D Basophils % 0.5 Nucleated RBC % 0 Retic Count 0.98 Anticoagulation Therapy No Result Required. Puncture Site Right radial Patient Temperature No Result Required. ABG pH 7.398 ABG pCO2 43.50 ABG pO2 106.6 H ABG HCO3 26.2 ABG O2 Sat (Measured) 97.9 ABG O2 Content No Result Required. ABG Base Excess 1.2 Yeyo Test Positive Patient On Oxygen Yes O2 Delivery Device N/c Oxygen Flow Rate 2.5l Vent Mode No Result Required. Vent Rate No Result Required. Mechanical Rate No Result Required. PEEP No Result Required. Pressure Support Vent No Result Required. Sodium 139 Potassium 3.6 Chloride 105 Carbon Dioxide 25 Anion Gap 9 BUN 20.4 H Creatinine 0.7 Est GFR (CKD-EPI)AfAm 96.86 Est GFR (CKD-EPI)NonAf 83.57 Random Glucose 99 Calcium 9.0 Phosphorus 2.4 L Magnesium 1.8 Iron 64 TIBC 108 L Iron Saturation 59 H Unsaturated IBC 44 L Ferritin 836.1 H Total Bilirubin 0.2 AST 47 H ALT 30 Alkaline Phosphatase 96 Total Protein 5.9 L Albumin 1.8 L Triglycerides 255 H Cholesterol 145 Total LDL Cholesterol 75 HDL Cholesterol 15 L Total Amylase 120 H Lipase 264 ASSESSMENT/PLAN: POD #2 : S/P I&D of the lumbar spine and wash out. S/P removal of hardware L3-L5 including L4-L5 intervertebral cage, inspection of fusion mass, L3-S1 laminectomies, L5-S1 PLIF, L3-S1 posterior instrumented s leighton fusion on 04/09/2020 Hypertension Dementia Depression Spinal stenosis Neuropathy IVF Strict I & O Supplemental O2 as needed ABX per ID Local wound care Continue home meds PO as tolerated Floor when cleared by surgery Dr Almazan
[2020-04-20] MEDS ORDERED: PROPOFOL 20 ML ONE (14:12)
[2020-04-20] MEDS ORDERED: ROCURONIUM BROMIDE 50 MG/5 ML SYRINGE ONE (14:12)
[2020-04-20] MEDS ORDERED: fentaNYL CITRATE 250 MCG/5 ML VIAL ONE (14:12)
[2020-04-20] MEDS ORDERED: NEOSTIGMINE METHYLSULFATE 0.5 MG/1 ML - 10 ML MDV ONE (15:30)
[2020-04-20] MEDS ORDERED: GLYCOPYRROLATE 0.2 MG/1 ML VIAL ONE (15:36)
[2020-04-20] MEDS ORDERED: LABETALOL HCL 5 MG/1 ML (100MG/20 ML VIAL) ONE (15:46)
--- NOTE | 2020-04-20 16:12 | PN ---
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 (short form) - Note 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: 72F s/p L1-S1 posterior decompression & T11-S1 instrumented fusion (08/15/2019) now p/w wound infection. Pt. AAO x 2 (person and place), NAD. -H&P reviewed. -Pt. seen & examined in pre-op holding area. -Risks, benefits, and alternatives of non-surgical VS surgical management discussed with & understood by patient. -Patient consented for I&D posterior lumbar spine; possible application of wound vac; telephone consent obtained by ICU staff & witnessed. Marko Cuenca MD (Orthopaedic Surgery).
--- NOTE | 2020-04-20 16:13 | PN ---
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 (short form) - Note 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: 79F s/p removal of hardware L3-L5 (including L4-L5 intervertebral cage), inspection of fusion mass, L3-S1 laminectomies, L5-S1 PLIF, L3-S1 posterior instrumented spinal fusion (04/09/2020) s/p I&D lumbar spine with betadine dressing wound packing (04/18/2020 now s/p I&D lumbar spine with application of woundvac POD #0. (+) Foul smelling. No sub-fascial nor suprafascial purulence. 3 x wound cultures sent to lab. Wound irrigated with 3L NS & debrided with betadine sponge. 3 minute wound soak with diluted betadine solution. WoundVac applied Wound approximated with Lautenbach sutures. -Admit to ICU post-op: patient is nutritionally sub-optimal (negative nitrogen balance), this has contributed to onset/advancement of dementia and poor wound healing; needs nutritional optimization - see Dr. Orellana's consult note and consider NG tube placement and feeds. -Pain medication: per anaesthesia team; NO NSAID's. -f/u NEW OR wound cultures x 3 (aerobic, anaerobic, AFB, fungal). -Maintain avila catheter until patient comfortably ambulating. -DVT PPx: -Mechanical only: LITA's, SCD's. -f/u AM labs: CBC, BMP; monitor renal function closely given age & and Vancomycin infusions. -Incentive spirometry. -PT/OT/Rehab, OOB. -WBAT B/L LE. -No heavy lifting (>5 lbs), bending or twisting x 6 months post op. -B/L UE & LE NV checks. -Care per ICU, ID, GI, and primary medical hospitalist teams. -Discharge planning: nutritional optimization; plan to repeat I&D with application of wound vac VS delayed primary closure on Mon04/23; NPO w/IVF Thursday at midnight). -Will follow. Marko Cuenca MD (Orthopaedic Surgery).
[2020-04-20] MEDS ORDERED: ONDANSETRON 4 MG/2 ML VIAL IVPUSH PRN (16:17)
--- NOTE | 2020-04-20 16:23 | OP ---
Operative Note - Note: Operative Date: 04/20/20 Pre-Operative Diagnosis: Lumbar spine infection Operation: 1. I&D lumbar spine. 2. Application lumbar spine woundvac Findings: Wound Dimensions: Length: 21cm Width: 5cm Depth: 7cm (+) Foul smell No purulence Post-Operative Diagnosis: Same as Pre-op Surgeon: Marko Cuenca Anesthesiologist/DIAZO TECHNICIAN: Obi Valencia Anesthesia: General Estimated Blood Loss (mls): 0 Drains & Tubes with Location: Lumbar WoundVac Fluid Volume Replaced (mls): 500 (Crystalloid) Operative Report Dictated: Yes
--- NOTE | 2020-04-20 18:28 | PATH ---
Surgical Pathology Report Patient Name: MOO MORALES [facility]. Rec. #: [id number] /Age/Gender: 1940 (Age: 79) / F Account: [id number] Location: ICU ROUTE RIDER Taken: 04/18/2020 Received: 04/19/2020 Reported: 04/20/2020 Physicians: Lan Mcfarland F.NHoney Specimen(s) Received LUMBAR TISSUE Clinical History Lumbar spine infection Final Diagnosis LUMBAR TISSUE, EXCISION: PORTIONS OF FIBROMUSCULAR TISSUE WITH MARKED ACUTE AND CHRONIC INFLAMMATION. Electronically Signed Laurie Hernandez M.D. Gross Description Received in formalin labeled "lumbar tissue," is a 7.0 x 4.5 x 1.7 cm aggregate of multiple martins-brown to rice, irregular portions of soft tissue. Fish Bait Processing Supervisor sections are submitted in one cassette. DL/04/19/2020 saudi/04/19/2020
[2020-04-20] MEDS: CHLORHEXIDINE GLUCONATE 4% CLEANSER FOR DECOLONIZATION TP SCH (21:15)
[2020-04-20] MEDS: MIRTAZAPINE 15 MG TABLET (FP) PO SCH (21:15)
[2020-04-20] MEDS: SENNOSIDES 8.6MG TABLET (FP) PO SCH (21:15)
[2020-04-20] MEDS: MORPHINE SULFATE 2 MG/ML VIAL IVPUSH PRN (21:16)
[2020-04-20] MEDS: CITALOPRAM HYDROBROMIDE 20 MG TABLET PO SCH (21:24)
[2020-04-20] MEDS ORDERED: PT OWN MED DRAWER 7, Y5N ONE (21:24)
--- NOTE | 2020-04-21 01:35 | PN ---
Physical Exam: SUBJECTIVE: Patient seen and examined, was sleepy but tried to have a conversation, asking me how I am feeling. I told her that I have been speaking with her son. She has been feeling otherwise unchanged, no acute events overnight. Urine output 2950cc, receiving IV clinimax with added vitamins and thiamine. OBJECTIVE: Vital Signs Period Temp Pulse Resp BP Sys/Lepe Pulse Ox Last 24 Hr 94.0 F-98.7 F 50-70 14-18 107-154/43-82 64-100 GENERAL: frail, sleepy but arousable, AOx1 (self), in no acute distress. HEAD: Normal with no signs of trauma. ENT: dry mucous membranes. LUNGS: Breath sounds equal and CTAB, no wheezes or crackles appreciated. HEART: Regular rate and rhythm, S1, S2 without murmurs. ABDOMEN: Soft, nontender, nondistended, active bowel sounds. EXTREMITIES: warm and perfused, L hand cold to touch, no edema. SKIN: Warm, dry, increased turgor, no rashes or lesions noted. Laboratory Results - last 24 hr 04/20/20 04/20/20 04/20/20 05:40 05:40 05:48 WBC 12.3 H RBC 3.11 L Hgb 8.3 L Hct 26.0 L MCV 83.4 MCH 26.6 MCHC 31.8 L RDW 14.2 Plt Count 433 MPV 8.1 Absolute Neuts (auto) 9.5 H Neutrophils % 77.0 Lymphocytes % 14.4 D Monocytes % 6.8 Eosinophils % 1.3 D Basophils % 0.5 Nucleated RBC % 0 Retic Count 0.98 Anticoagulation Therapy No Result Required. Puncture Site Right radial Patient Temperature No Result Required. ABG pH 7.398 ABG pCO2 43.50 ABG pO2 106.6 H ABG HCO3 26.2 ABG O2 Sat (Measured) 97.9 ABG O2 Content No Result Required. ABG Base Excess 1.2 Yeyo Test Positive Patient On Oxygen Yes O2 Delivery Device N/c Oxygen Flow Rate 2.5l Vent Mode No Result Required. Vent Rate No Result Required. Mechanical Rate No Result Required. PEEP No Result Required. Pressure Support Vent No Result Required. Sodium 139 Potassium 3.6 Chloride 105 Carbon Dioxide 25 Anion Gap 9 BUN 20.4 H Creatinine 0.7 Est GFR (CKD-EPI)AfAm 96.86 Est GFR (CKD-EPI)NonAf 83.57 Random Glucose 99 Calcium 9.0 Phosphorus 2.4 L Magnesium 1.8 Iron 64 TIBC 108 L Iron Saturation 59 H Unsaturated IBC 44 L Ferritin 836.1 H Total Bilirubin 0.2 AST 47 H ALT 30 Alkaline Phosphatase 96 Total Protein 5.9 L Albumin 1.8 L Triglycerides 255 H Cholesterol 145 Total LDL Cholesterol 75 HDL Cholesterol 15 L Total Amylase 120 H Lipase 264 Active Medications Generic Name Dose Route Start Last Admin Trade Name Freq PRN Reason Stop Dose Admin Acetaminophen 650 mg 04/19/20 02:19 Tylenol - PO Q6H PRN Fever Amino Acids 30 ml 04/19/20 08:00 04/20/20 18:45 Prosource No Carb Liquid Pkt PO 30 ml BID@0800,1730 JAYE Administration Chlorhexidine Gluconate 1 applic 04/20/20 22:00 04/20/20 21:15 Hibiclens For Decolonization - TP 1 applic HS JAYE Administration Citalopram Hydrobromide 20 mg 04/19/20 22:00 04/20/20 21:24 Celexa - PO 20 mg HS JAYE Administration Docusate Sodium 100 mg 04/19/20 06:00 04/20/20 21:14 Colace - PO 100 mg TID JAYE Administration Fentanyl 25 mcg 04/20/20 16:17 Sublimaze Injection - IVPUSH [id number] PRN PAIN-PACU ORDER X 4 DOSES ONLY Amino Acids 1,000 mls @ 84 mls/hr 04/19/20 12:00 04/20/20 12:15 Clinimix - IV Not Given Q12H JAYE Vancomycin HCl 1,000 mg in 250 mls @ 166.667 mls/hr 04/20/20 02:00 04/20/20 13:54 Vancomycin (Pre-Docked) IVPB 166.667 mls/hr Q12H JAYE Administration Protocol Piperacillin Sod/Tazobactam 100 mls @ 200 mls/hr 04/19/20 21:00 04/20/20 21:13 Sod 4.5 gm/ Dextrose IVPB 200 mls/hr Q6H-IV JAYE Administration Protocol Lactated Ringer's 1,000 mls @ 75 mls/hr 04/20/20 16:30 04/20/20 16:30 Lactated Ringers Solution IV 75 mls/hr ASDIR JAYE Administration Mirtazapine 7.5 mg 04/19/20 22:00 04/20/20 21:15 Remeron - PO 7.5 mg HS JAYE Administration Morphine Sulfate 2 mg 04/19/20 12:02 04/20/20 21:16 Morphine Sulfate IVPUSH 2 mg Q4H PRN Administration PAIN LEVEL 6-10 Multivitamins/Minerals 10 ml 04/20/20 00:00 04/20/20 10:03 Infuvite Adult - IV 10 ml Q24H JAYE Administration Mupirocin 1 applic 04/20/20 22:00 04/20/20 21:13 Bactroban Ointment (For Decolonization) - NS 04/25/20 21:59 1 applic BID JAYE Administration Ondansetron HCl 4 mg 04/20/20 16:17 Zofran Injection IVPUSH Q6H PRN NAUSEA AND/OR VOMITING Pantoprazole Sodium 40 mg 04/19/20 07:00 04/20/20 06:26 Protonix - PO Not Given ACBK JAYE Senna 2 tab 04/19/20 22:00 04/20/20 21:15 Senna - PO 2 tab HS JAYE Administration Thiamine HCl 200 mg 04/19/20 13:45 04/20/20 10:00 Vitamin B1 Injection - IVPB 200 mg DAILY JAYE Administration Microbiology 04/18/20 17:34 Wound Gram Stain - Final 04/18/20 17:34 Wound Wound Culture - Preliminary Group D Strep Or Entero Coccus Non Lactose Fermenting Gnb Pending Organism 04/19/20 10:18 Blood - Peripheral Venous Blood Culture - Preliminary NO GROWTH OBTAINED AFTER 24 HOURS, INCUBATION TO CONTINUE FOR 4 DAYS. 04/19/20 10:11 Blood - Peripheral Venous Blood Culture - Preliminary NO GROWTH OBTAINED AFTER 24 HOURS, INCUBATION TO CONTINUE FOR 4 DAYS. 04/17/20 12:14 Blood - Peripheral Venous Blood Culture - Final Non Lactose Fermenting Gnb 04/17/20 12:05 Urine - Urine - Catheterized Urine Culture - Final Pseudomonas Aeruginosa 04/17/20 12:10 Blood - Peripheral Venous Blood Culture - Final Escherichia Coli ASSESSMENT/PLAN: 79 yo F PMHx hypertension, dementia, depression, spinal stenosis, and neuropathy with recent extensive lumbar back surgery (removal of hardware L3-L5 including L4-L5 intervertebral cage, inspection of fusion mass, L3-S1 laminectomies, L5-S1 PLIF, L3-S1 posterior instrumented spinal fusion) on 04/09/2020; now admitted s/p I&D of the lumbar spine PO1. Blood Cx growing gram- bacilli, Urine Cx growing Pseudomonas, and CXR remarkable for blunting of R costophrenic angle. On vanc and sozyn. Patient did not receive a PEG or NG tube, was taken to OR today 04/20/20 for another washout, and per Dr. Cuenca plan is wound vac placement + rehab next week. #Neuro History of dementia, depression - Continue home Mirtazapine, Citalopram - Monitor for signs of mental status changes #Pulm - Currently saturating well, without respiratory distress. - Incentive spirometer q15 minutes - Monitor for change in oxygen requirements, respiratory distress #Cardio History of hypertension - holding losartan due to labile BP - continue monitoring BPs #ID Sepsis (febrile, leukocytosis, positive blood and urine cultures) S/p I&D of infected wound lumbar spine decubitus ulcer - wound, blood, and urine cultures showing bacterial growth - continue Zosyn (first dose 04/18 @ 8.30am) and Vancomycin (first dose 04/18 @ 3pm) - continue to monitor vitals and CBC - another I&D on 04/20/2020 - ID consulted #MSK s/p extensive lumbar back surgery on 04/09 s/p I&D of purulent subfascial lumbar wound - Pain control with Oxycodone and Morphine PRN. NO NSAIDs per orthopedic surgery #GI Sub-optimal nutrition (negative nitrogen balance) - GI consulted - speech pathology consulted - patient currently receiving IV clinimax with added vitamins and thiamine, d/c'ing thiamine today and PO trial with dysphagia-appropriate diet #FEN - IV LR at 75 cc/h - replete lytes PRN - clinimax with vitamins and thiamine, continuing PO trials #PPx - DVT: SCDs bilateral lower extremities - GI: pantoprazole Dispo: continue ICU monitoring Visit type - Emergency Visit Emergency Visit: Yes ED Registration Date: 04/09/20 Care time: The patient presented to the Emergency Department on the above date and was hospitalized for further evaluation of their emergent condition. - New Patient This patient is new to me today: No - Critical Care Critical Care patient: Yes Total Critical Care Time (in minutes): 37 Critical Care Statement: The care of this patient involved high complexity decision making to prevent further life threatening deterioration of the patient's condition and/or to evaluate & treat vital organ system(s) failure or risk of failure. ATTENDING PHYSICIAN STATEMENT I saw and evaluated the patient. I reviewed the resident's note and discussed the case with the resident. I agree with the resident's findings and plan as documented. SUBJECTIVE: OBJECTIVE: ASSESSMENT AND PLAN:
[2020-04-21] MEDS ORDERED: DEXTROSE 5%-WATER 100 ML IVPB ONE ×4 (02:36→21:28)
[2020-04-21] MEDS ORDERED: PIPERACILLIN/TAZOBACTAM 4.5 GM VIAL IVPB ONE ×4 (02:36→21:28)
[2020-04-21] MEDS: VANCOMYCIN 1 GRAM (PRE-DOCKED) 1,000 MG/250 ML BAG IVPB SCH ×3 (02:43→14:07)
[2020-04-21] MEDS: PIPERACILLIN/TAZOB 4.5 GM 4.5 GM in DEXTROSE 5%-WATER 100 ML IVPB SCH ×4 (02:58→21:46)
[2020-04-21] MEDS: MULTIVIT INJ. ADULT COMBO WITH VIT K 1 COMBO 10 ML VIAL IV SCH (03:09)
[2020-04-21] MEDS: AMINO ACIDS 4.25%/D5W 1,000 ML IV SCH ×2 (04:00→12:09)
[2020-04-21] MEDS: PANTOPRAZOLE 40 MG TABLET PO SCH (06:06)
[2020-04-21] MEDS: DOCUSATE SODIUM 100 MG CAPSULE (FP) PO SCH ×3 (06:06→21:45)
[2020-04-21 07:21] LABS: HEMATOCRIT 28.9 % (32.4-45.2); HEMOGLOBIN 9.2 GM/dL (10.7-15.3); LYMPH % 7.4 % (8-40); MCH 26.7 pg (25.7-33.7); MCHC 31.7 g/dl (32.0-36.0); MEAN PLT VOLUME 7.6 fl (7.5-11.1); MONO % 5.4 % (3.8-10.2); NEUT % 86.2 % (42.8-82.8); PLATELET COUNT 498 K/MM3 (134-434); RBC 3.44 M/mm3 (3.60-5.2)
[2020-04-21 07:48] LABS: ALBUMIN 1.9 g/dl (3.4-5.0); BILIRUBIN,TOTAL 0.3 mg/dL (0.2-1); BLOOD UREA NITROGEN 20.8 mg/dL (7-18); CALCIUM 8.8 mg/dL (8.5-10.1); CREATININE 0.8 mg/dL (0.55-1.3); MAGNESIUM 1.7 mg/dL (1.8-2.4); PHOSPHOROUS 2.8 mg/dL (2.5-4.9); POTASSIUM 3.5 mmol/L (3.5-5.1); TOT PROT 6.4 g/dl (6.4-8.2)
[2020-04-21] MEDS ORDERED: MAGNESIUM SULF 50% (8.12 MEQ/2 ML-1 GM VIAL) IVPB ONE (08:15)
[2020-04-21] MEDS ORDERED: MAGNESIUM 1GM/D5W - 1 GM/100 ML IVPB IVPB ONE (08:30)
[2020-04-21] MEDS: AMINO ACIDS/PROTEIN HYDROLYS 30 ML LIQUID.PKT PO SCH ×2 (08:35→17:06)
[2020-04-21] MEDS: MUPIROCIN 2% TOPICAL OINTMENT FOR DECOLONIZATION NS SCH ×2 (09:10→21:45)
[2020-04-21] MEDS: LACTATED RINGERS SOLUTION 1,000 ML IV SCH ×2 (12:11→16:59)
--- NOTE | 2020-04-21 12:43 | PN ---
Teaching Attending Note Name of Resident: Corin Nick ATTENDING PHYSICIAN STATEMENT I saw and evaluated the patient. I reviewed the resident's note and discussed the case with the resident. I agree with the resident's findings and plan as documented. SUBJECTIVE: Patient seen and examined in the ICU. POD #3: S/P I&D of the lumbar spine and wash out ; POD #1 wash out and VAC placement. Awake and alert. Reports less surgical site pain. No CP or SOB. Hemodynamics stable. Intake & Output 04/18/20 04/19/20 04/20/20 04/21/20 23:59 23:59 23:59 23:59 Intake Total 2383 2695 5224 2405 Output Total 450 1650 3150 900 Balance 1933 1045 2074 1505 Weight 140 lb 12.8 oz 140 lb Last Vital Signs Temp Pulse Resp BP Pulse Ox 97.9 F 58 L 15 122/42 L 98 04/21/20 09:00 04/21/20 11:00 04/21/20 11:00 04/21/20 11:00 04/21/20 11:00 Active Medications Acetaminophen (Tylenol -) 650 mg PO Q6H PRN PRN Reason: Fever Amino Acids (Prosource No Carb Liquid Pkt) 30 ml PO BID@0800,1730 [facility] Last Admin: 04/21/20 08:35 Dose: 30 ml Documented by: Chlorhexidine Gluconate (Hibiclens For Decolonization -) 1 applic TP [facility] Last Admin: 04/20/20 21:15 Dose: 1 applic Documented by: Citalopram Hydrobromide (Celexa -) 20 mg PO [facility] Last Admin: 04/20/20 21:24 Dose: 20 mg Documented by: Docusate Sodium (Colace -) 100 mg PO TID [facility] Last Admin: 04/21/20 06:06 Dose: 100 mg Documented by: Fat Emulsion-[place] Oil/Soybean Oil (Clinolipid 20% Iv Fat Emulsion) 250 ml IV DAILY@2200 [facility] Fentanyl (Sublimaze Injection -) 25 mcg IVPUSH [id number] PRN PRN Reason: PAIN-PACU ORDER X 4 DOSES ONLY Amino Acids (Clinimix -) 1,000 mls @ 84 mls/hr IV Q12H [facility] Last Admin: 04/21/20 12:09 Dose: 84 mls/hr Documented by: Vancomycin HCl (Vancomycin (Pre-Docked)) 1,000 mg in 250 mls @ 166.667 mls/hr IVPB Q12H [facility]; Protocol Last Admin: 04/21/20 02:43 Dose: 166.667 mls/hr Documented by: Piperacillin Sod/Tazobactam (Sod 4.5 gm/ Dextrose) 100 mls @ 200 mls/hr IVPB Q6H-IV JAYE; Protocol Last Admin: 04/21/20 08:35 Dose: 200 mls/hr Documented by: Lactated Ringer's (Lactated Ringers Solution) 1,000 mls @ 75 mls/hr IV ASDIR [facility] Last Admin: 04/21/20 12:11 Dose: 75 mls/hr Documented by: Mirtazapine (Remeron -) 7.5 mg PO [facility] Last Admin: 04/20/20 21:15 Dose: 7.5 mg Documented by: Morphine Sulfate (Morphine Sulfate) 2 mg IVPUSH Q4H PRN PRN Reason: PAIN LEVEL 6-10 Last Admin: 04/20/20 21:16 Dose: 2 mg Documented by: Multivitamins/Minerals (Infuvite Adult -) 10 ml IV Q24H [facility] Last Admin: 04/21/20 03:09 Dose: Not Given Documented by: Mupirocin (Bactroban Ointment (For Decolonization) -) 1 applic NS BID [facility] Stop: 04/25/20 21:59 Last Admin: 04/21/20 09:10 Dose: 1 applic Documented by: Ondansetron HCl (Zofran Injection) 4 mg IVPUSH Q6H PRN PRN Reason: NAUSEA AND/OR VOMITING Pantoprazole Sodium (Protonix -) 40 mg PO ACBK [facility] Last Admin: 04/21/20 06:06 Dose: 40 mg Documented by: Senna (Senna -) 2 tab PO [facility] Last Admin: 04/20/20 21:15 Dose: 2 tab Documented by: GENERAL: Awake and alert, NAD HEAD: NCAT. EYES: conjunctiva clear. EARS, NOSE, THROAT: Oropharynx clear without exudates. Moist mucous membranes. NECK: Supple; no LAD LUNGS: Breath sounds equal, clear to auscultation bilaterally. No wheezes, and no crackles. No accessory muscle use. HEART: Regular rate and rhythm, normal S1 and S2 without murmur, rub or gallop. ABDOMEN: Soft, nontender, non distended abdomen, normoactive bowel sounds. MUSCULOSKELETAL: unable to assess ROM as pt was drowsy UPPER EXTREMITIES: 2+ pulses, warm, well-perfused. No peripheral edema. LOWER EXTREMITIES: 2+ pulses, warm, well-perfused. No calf tenderness. No peripheral edema. NEUROLOGICAL: Non-focal SKIN: Warm, dry; surgical site clean, dry, and intact Laboratory Results - last 24 hr 04/21/20 04/21/20 07:00 07:00 WBC 14.0 H RBC 3.44 L Hgb 9.2 L Hct 28.9 L MCV 84.0 MCH 26.7 MCHC 31.7 L RDW 14.0 Plt Count 498 H MPV 7.6 Absolute Neuts (auto) 12.0 H Neutrophils % 86.2 H Lymphocytes % 7.4 L D Monocytes % 5.4 Eosinophils % 0.0 D Basophils % 1.0 Nucleated RBC % 0 Sodium 140 Potassium 3.5 Chloride 105 Carbon Dioxide 26 Anion Gap 9 BUN 20.8 H Creatinine 0.8 Est GFR (CKD-EPI)AfAm 82.42 Est GFR (CKD-EPI)NonAf 71.11 Random Glucose 104 Calcium 8.8 Phosphorus 2.8 Magnesium 1.7 L Total Bilirubin 0.3 AST 25 ALT 22 Alkaline Phosphatase 91 Total Protein 6.4 Albumin 1.9 L ASSESSMENT/PLAN: POD #3 : S/P I&D of the lumbar spine and wash out. POD #1 : Wash out and VAC placement S/P removal of hardware L3-L5 including L4-L5 intervertebral cage, inspection of fusion mass, L3-S1 laminectomies, L5-S1 PLIF, L3-S1 posterior instrumented spinal fusion on 04/09/2020 Hypertension Dementia Depression Spinal stenosis Neuropathy IVF PO as tolerated Strict I & O Supplemental O2 as needed ABX per ID Local wound care Floor when cleared by surgery Dr Almazan
--- NOTE | 2020-04-21 12:47 | PN ---
Physical Exam: SUBJECTIVE: Patient seen and examined. She reports no neck or back pain. Pt is eating pureed diet with no difficulty. OBJECTIVE: Vital Signs Period Temp Pulse Resp BP Sys/Lepe Pulse Ox Last 24 Hr 94.0 F-98.7 F 50-70 13-18 107-151/42-82 92-100 GENERAL: Pt is sleepy but arousable, oriented. HEAD: Normal with no signs of trauma. EYES: PERRL, extraocular movements intact, conjunctiva clear. ENT: Ears normal, nares patent, moist mucous membranes. NECK: Trachea midline. LUNGS: Clear to auscultation bilaterally anteriorly. HEART: Regular rate and rhythm, no murmur appreciated ABDOMEN: Soft, nontender, nondistended, normoactive bowel sounds. EXTREMITIES: Warm, well-perfused, right arm edema, minimal movement of left extremities. NEUROLOGICAL: Cranial nerves II through XII grossly intact. PSYCH: Normal mood, normal affect. SKIN: Warm, dry, normal turgor. Laboratory Results - last 24 hr 04/21/20 04/21/20 07:00 07:00 WBC 14.0 H RBC 3.44 L Hgb 9.2 L Hct 28.9 L MCV 84.0 MCH 26.7 MCHC 31.7 L RDW 14.0 Plt Count 498 H MPV 7.6 Absolute Neuts (auto) 12.0 H Neutrophils % 86.2 H Lymphocytes % 7.4 L D Monocytes % 5.4 Eosinophils % 0.0 D Basophils % 1.0 Nucleated RBC % 0 Sodium 140 Potassium 3.5 Chloride 105 Carbon Dioxide 26 Anion Gap 9 BUN 20.8 H Creatinine 0.8 Est GFR (CKD-EPI)AfAm 82.42 Est GFR (CKD-EPI)NonAf 71.11 Random Glucose 104 Calcium 8.8 Phosphorus 2.8 Magnesium 1.7 L Total Bilirubin 0.3 AST 25 ALT 22 Alkaline Phosphatase 91 Total Protein 6.4 Albumin 1.9 L Active Medications Generic Name Dose Route Start Last Admin Trade Name Freq PRN Reason Stop Dose Admin Acetaminophen 650 mg 04/19/20 02:19 Tylenol - PO Q6H PRN Fever Amino Acids 30 ml 04/19/20 08:00 04/21/20 08:35 Prosource No Carb Liquid Pkt PO 30 ml BID@0800,1730 JYAE Administration Chlorhexidine Gluconate 1 applic 04/20/20 22:00 04/20/20 21:15 Hibiclens For Decolonization - TP 1 applic HS JAYE Administration Citalopram Hydrobromide 20 mg 04/19/20 22:00 04/20/20 21:24 Celexa - PO 20 mg HS JAYE Administration Docusate Sodium 100 mg 04/19/20 06:00 04/21/20 06:06 Colace - PO 100 mg TID JAYE Administration Fat Emulsion-[place] Oil/Soybean Oil 250 ml 04/21/20 22:00 Clinolipid 20% Iv Fat Emulsion IV DAILY@2200 JAYE Fentanyl 25 mcg 04/20/20 16:17 Sublimaze Injection - IVPUSH [id number] PRN PAIN-PACU ORDER X 4 DOSES ONLY Amino Acids 1,000 mls @ 84 mls/hr 04/19/20 12:00 04/21/20 12:09 Clinimix - IV 84 mls/hr Q12H JAYE Administration Vancomycin HCl 1,000 mg in 250 mls @ 166.667 mls/hr 04/20/20 02:00 04/21/20 02:43 Vancomycin (Pre-Docked) IVPB 166.667 mls/hr Q12H JAYE Administration Protocol Piperacillin Sod/Tazobactam 100 mls @ 200 mls/hr 04/19/20 21:00 04/21/20 08:35 Sod 4.5 gm/ Dextrose IVPB 200 mls/hr Q6H-IV JAYE Administration Protocol Lactated Ringer's 1,000 mls @ 75 mls/hr 04/20/20 16:30 04/21/20 12:11 Lactated Ringers Solution IV 75 mls/hr ASDIR JAYE Administration Mirtazapine 7.5 mg 04/19/20 22:00 04/20/20 21:15 Remeron - PO 7.5 mg HS JAYE Administration Morphine Sulfate 2 mg 04/19/20 12:02 04/20/20 21:16 Morphine Sulfate IVPUSH 2 mg Q4H PRN Administration PAIN LEVEL 6-10 Multivitamins/Minerals 10 ml 04/20/20 00:00 04/21/20 03:09 Infuvite Adult - IV Not Given Q24H JAYE Mupirocin 1 applic 04/20/20 22:00 04/21/20 09:10 Bactroban Ointment (For Decolonization) - NS 04/25/20 21:59 1 applic BID JAYE Administration Ondansetron HCl 4 mg 04/20/20 16:17 Zofran Injection IVPUSH Q6H PRN NAUSEA AND/OR VOMITING Pantoprazole Sodium 40 mg 04/19/20 07:00 04/21/20 06:06 Protonix - PO 40 mg ACBK JAYE Administration Senna 2 tab 04/19/20 22:00 04/20/20 21:15 Senna - PO 2 tab HS JAYE Administration ASSESSMENT/PLAN: Pt is a 79 y/o female with HTN, dementia, depression, spinal stenosis, and neuropathy with recent extensive lumbar back surgery (removal of hardware L3-L5 including L4-L5 intervertebral cage, inspection of fusion mass, L3-S1 laminectomies, L5-S1 PLIF, L3-S1 posterior instrumented spinal fusion) on 04/09/2020, s/p I&D as well as wash out (04/20/20). #neuro -awake and oriented -left side weakness is not new symptom #pulm -stable -incentive spirometer -keep O2 >90 #cardio -hemodynamically stable -monitor vitals -consider adding home meds if pt becomes hypertensive #renal -hypomagnesemia -replete Mg #ID -new cx from yesterday growing VRE -vancomycin dose held today for elevated vanc level (25) -repeat vanc level -Zosyn day 3 -ID following #MSK -pt denies pain at time of exam -will monitor and medicate appropriately with morphine -anticipated return to OR for another washout in 2 days #GI -needs increased nutrition given sepsis and low food intake recently -has been tolerating puree diet -spoke to dietary and pt will increased protein in food -add Clinolipid -keep on Clinimix and Ensure -assess daily, goal 2,000-3,000 calories/daily, will consider PEG conversation with family again if she is unable to obtain calorie count -dietary following -GI following -bowel regimen #psych -hx depression -mirtazipine -Celexa DVT Ppx SCDs GI Ppx Protonix FEN LR 75mL/hr, Clinimix, Clinolipid monitor Mg puree diet with IV supplementation dispo Dr. Cuenca recommends close monitoring in ICU given recent sepsis and nutritional needs. We will continue to monitor in the ICU. FULL CODE Visit type - Emergency Visit Emergency Visit: Yes ED Registration Date: 04/09/20 Care time: The patient presented to the Emergency Department on the above date and was hospitalized for further evaluation of their emergent condition. - New Patient This patient is new to me today: Yes Date on this admission: 04/21/20 - Critical Care Critical Care patient: Yes Total Critical Care Time (in minutes): 36 Critical Care Statement: The care of this patient involved high complexity decision making to prevent further life threatening deterioration of the patient's condition and/or to evaluate & treat vital organ system(s) failure or risk of failure. ATTENDING PHYSICIAN STATEMENT I saw and evaluated the patient. I reviewed the resident's note and discussed the case with the resident. I agree with the resident's findings and plan as documented. SUBJECTIVE: OBJECTIVE: ASSESSMENT AND PLAN:
[2020-04-21] MEDS: MORPHINE SULFATE 2 MG/ML VIAL IVPUSH PRN ×2 (13:28→21:45)
[2020-04-21] MEDS ORDERED: ZINC SULFATE 220 MG CAPSULE (FP) PO ONE (16:05)
[2020-04-21] MEDS ORDERED: PT OWN MED DRAWER 7, Y5N ONE (21:28)
[2020-04-21] MEDS: MIRTAZAPINE 15 MG TABLET (FP) PO SCH (21:44)
[2020-04-21] MEDS: CITALOPRAM HYDROBROMIDE 20 MG TABLET PO SCH (21:45)
[2020-04-21] MEDS: CHLORHEXIDINE GLUCONATE 4% CLEANSER FOR DECOLONIZATION TP SCH (21:45)
[2020-04-21] MEDS: ASCORBIC ACID 500 MG TABLET (FP) PO SCH (21:45)
[2020-04-21] MEDS: SENNOSIDES 8.6MG TABLET (FP) PO SCH (21:46)
--- NOTE | 2020-04-21 21:54 | PN ---
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, Physician History of Present Illness: Pt is alert, comfortable. Afebrile. Vancomycin level noted. - Current Medication List Current Medications: Active Medications Acetaminophen (Tylenol -) 650 mg PO Q6H PRN PRN Reason: Fever Amino Acids (Prosource No Carb Liquid Pkt) 30 ml PO BID@0800,1730 [facility] Last Admin: 04/21/20 17:06 Dose: 30 ml Documented by: Ascorbic Acid (Vitamin C -) 500 mg PO BID [facility] Chlorhexidine Gluconate (Hibiclens For Decolonization -) 1 applic TP [facility] Last Admin: 04/20/20 21:15 Dose: 1 applic Documented by: Citalopram Hydrobromide (Celexa -) 20 mg PO [facility] Last Admin: 04/20/20 21:24 Dose: 20 mg Documented by: Docusate Sodium (Colace -) 100 mg PO TID [facility] Last Admin: 04/21/20 13:28 Dose: 100 mg Documented by: Fat Emulsion-Soy/MCT/[place]/Fish Oil (Smoflipid 20% Iv Fat Emulsion) 250 ml IV DAILY@2200 [facility] Fentanyl (Sublimaze Injection -) 25 mcg IVPUSH [id number] PRN PRN Reason: PAIN-PACU ORDER X 4 DOSES ONLY Amino Acids (Clinimix -) 1,000 mls @ 84 mls/hr IV Q12H [facility] Last Admin: 04/21/20 12:09 Dose: 84 mls/hr Documented by: Vancomycin HCl (Vancomycin (Pre-Docked)) 1,000 mg in 250 mls @ 166.667 mls/hr IVPB Q12H [facility]; Protocol Last Admin: 04/21/20 14:07 Dose: Not Given Documented by: Piperacillin Sod/Tazobactam (Sod 4.5 gm/ Dextrose) 100 mls @ 200 mls/hr IVPB Q6H-IV [facility]; Protocol Last Admin: 04/21/20 14:25 Dose: 200 mls/hr Documented by: Lactated Ringer's (Lactated Ringers Solution) 1,000 mls @ 75 mls/hr IV ASDIR [facility] Last Admin: 04/21/20 16:59 Dose: Not Given Documented by: Mirtazapine (Remeron -) 7.5 mg PO [facility] Last Admin: 04/20/20 21:15 Dose: 7.5 mg Documented by: Morphine Sulfate (Morphine Sulfate) 2 mg IVPUSH Q4H PRN PRN Reason: PAIN LEVEL 6-10 Last Admin: 04/21/20 13:28 Dose: 2 mg Documented by: Multivitamins/Minerals (Infuvite Adult -) 10 ml IV Q24H [facility] Last Admin: 04/21/20 03:09 Dose: Not Given Documented by: Mupirocin (Bactroban Ointment (For Decolonization) -) 1 applic NS BID [facility] Stop: 04/25/20 21:59 Last Admin: 04/21/20 09:10 Dose: 1 applic Documented by: Ondansetron HCl (Zofran Injection) 4 mg IVPUSH Q6H PRN PRN Reason: NAUSEA AND/OR VOMITING Pantoprazole Sodium (Protonix -) 40 mg PO ACBK [facility] Last Admin: 04/21/20 06:06 Dose: 40 mg Documented by: Senna (Senna -) 2 tab PO HS [facility] Last Admin: 04/20/20 21:15 Dose: 2 tab Documented by: Zinc Sulfate (Orazinc -) 220 mg PO DAILY [facility] - Objective Vital Signs: Vital Signs Temperature 98.3 F 04/21/20 17:00 Pulse Rate 73 04/21/20 17:00 Respiratory Rate 14 04/21/20 17:00 Blood Pressure 134/77 04/21/20 17:00 O2 Sat by Pulse Oximetry (%) 98 04/21/20 17:00 Constitutional: Yes: No Distress, Calm Cardiovascular: Yes: Regular Rate and Rhythm Respiratory: Yes: Regular Gastrointestinal: Yes: Normal Bowel Sounds, Soft Wound/Incision: Yes: Dressing Dry and Intact (wound vac) Neurological: Yes: Alert Labs: CBC, BMP 04/21/20 07:00 04/21/20 07:00 Laboratory Last Values WBC 14.0 K/mm3 (4.0-10.0) H 04/21/20 07:00 RBC 3.44 M/mm3 (3.60-5.2) L 04/21/20 07:00 Hgb 9.2 GM/dL (10.7-15.3) L 04/21/20 07:00 Hct 28.9 % (32.4-45.2) L 04/21/20 07:00 MCV 84.0 fl (80-96) 04/21/20 07:00 MCH 26.7 pg (25.7-33.7) 04/21/20 07:00 MCHC 31.7 g/dl (32.0-36.0) L 04/21/20 07:00 RDW 14.0 % (11.6-15.6) 04/21/20 07:00 Plt Count 498 K/MM3 (134-434) H 04/21/20 07:00 MPV 7.6 fl (7.5-11.1) 04/21/20 07:00 Absolute Neuts (auto) 12.0 K/mm3 (1.5-8.0) H 04/21/20 07:00 Neutrophils % 86.2 % (42.8-82.8) H 04/21/20 07:00 Neutrophils % (Manual) 85.1 % (42.8-82.8) H 04/19/20 07:20 Band Neutrophils % 0.0 % 04/19/20 07:20 Lymphocytes % 7.4 % (8-40) L D 04/21/20 07:00 Lymphocytes % (Manual) 11.9 % (8-40) D 04/19/20 07:20 Monocytes % 5.4 % (3.8-10.2) 04/21/20 07:00 Monocytes % (Manual) 3 % (3.8-10.2) L 04/19/20 07:20 Eosinophils % 0.0 % (0-4.5) D 04/21/20 07:00 Eosinophils % (Manual) 0.0 % (0-4.5) 04/19/20 07:20 Basophils % 1.0 % (0-2.0) 04/21/20 07:00 Basophils % (Manual) 0.0 % (0-2.0) 04/19/20 07:20 Myelocytes % (Man) 0 % (0-2) 04/19/20 07:20 Promyelocytes % (Man) 0 % (0-2) 04/19/20 07:20 Blast Cells % (Manual) 0 % (0-0) 04/19/20 07:20 Nucleated RBC % 0 % (0-0) 04/21/20 07:00 Metamyelocytes 0 % (0-2) 04/19/20 07:20 Hypochromia 0 04/19/20 07:20 Platelet Estimate Normal 04/19/20 07:20 Platelet Comment Present 04/12/20 08:40 Polychromasia 1+ 04/19/20 07:20 Poikilocytosis 0 04/19/20 07:20 Anisocytosis 2+ 04/19/20 07:20 Microcytosis 2+ 04/19/20 07:20 Macrocytosis 0 04/19/20 07:20 Target Cells 1+ 04/18/20 06:30 Retic Count 0.98 % (0.5-1.5) 04/20/20 05:40 Anticoagulation Therapy No Result Required. 04/20/20 05:48 Puncture Site Right radial 04/20/20 05:48 Patient Temperature No Result Required. 04/20/20 05:48 ABG pH 7.398 (7.350-7.450) 04/20/20 05:48 ABG pCO2 43.50 mmHg (35-45) 04/20/20 05:48 ABG pO2 106.6 mmHg (80-100) H 04/20/20 05:48 ABG HCO3 26.2 mmol/L (22-27) 04/20/20 05:48 ABG O2 Sat (Measured) 97.9 mmHg (95-98) 04/20/20 05:48 ABG O2 Content No Result Required. 04/20/20 05:48 ABG Base Excess 1.2 mmol/L (-2-2) 04/20/20 05:48 Yeyo Test Positive 04/20/20 05:48 Patient On Oxygen Yes 04/20/20 05:48 O2 Delivery Device N/c 04/20/20 05:48 Oxygen Flow Rate 2.5l 04/20/20 05:48 Vent Mode No Result Required. 04/20/20 05:48 Vent Rate No Result Required. 04/20/20 05:48 Mechanical Rate No Result Required. 04/20/20 05:48 PEEP No Result Required. 04/20/20 05:48 Pressure Support Vent No Result Required. 04/20/20 05:48 Sodium 140 mmol/L (136-145) 04/21/20 07:00 Potassium 3.5 mmol/L (3.5-5.1) 04/21/20 07:00 Chloride 105 mmol/L (98-107) 04/21/20 07:00 Carbon Dioxide 26 mmol/L (21-32) 04/21/20 07:00 Anion Gap 9 MMOL/L (8-16) 04/21/20 07:00 BUN 20.8 mg/dL (7-18) H 04/21/20 07:00 Creatinine 0.8 mg/dL (0.55-1.3) 04/21/20 07:00 Est GFR (CKD-EPI)AfAm 82.42 04/21/20 07:00 Est GFR (CKD-EPI)NonAf 71.11 04/21/20 07:00 POC Glucometer 114 UNITS (80-120) 04/19/20 05:43 Random Glucose 104 mg/dL (74-106) 04/21/20 07:00 Lactic Acid 0.9 mmol/L (0.4-2.0) 04/17/20 12:10 Calcium 8.8 mg/dL (8.5-10.1) 04/21/20 07:00 Phosphorus 2.8 mg/dL (2.5-4.9) 04/21/20 07:00 Magnesium 1.7 mg/dL (1.8-2.4) L 04/21/20 07:00 Iron 64 ug/dL (50-175) 04/20/20 05:40 TIBC 108 ug/dL (250-450) L 04/20/20 05:40 Iron Saturation 59 % (17.5-39) H 04/20/20 05:40 Unsaturated IBC 44 ug/dL (200-275) L 04/20/20 05:40 Ferritin 836.1 ng/ml (8-388) H 04/20/20 05:40 Total Bilirubin 0.3 mg/dL (0.2-1) 04/21/20 07:00 AST 25 U/L (15-37) 04/21/20 07:00 ALT 22 U/L (13-61) 04/21/20 07:00 Alkaline Phosphatase 91 U/L (45-117) 04/21/20 07:00 Total Protein 6.4 g/dl (6.4-8.2) 04/21/20 07:00 Albumin 1.9 g/dl (3.4-5.0) L 04/21/20 07:00 Triglycerides 255 mg/dL (0-150) H 04/20/20 05:40 Cholesterol 145 mg/dL (50-200) 04/20/20 05:40 Total LDL Cholesterol 75 mg/dL (5-100) 04/20/20 05:40 HDL Cholesterol 15 mg/dL (40-60) L 04/20/20 05:40 Total Amylase 120 U/L (25-115) H 04/20/20 05:40 Lipase 264 U/L (73-393) 04/20/20 05:40 Urine Color Yellow 04/17/20 12:05 Urine Appearance Clear 04/17/20 12:05 Urine pH 6.0 (5.0-8.0) 04/17/20 12:05 Ur Specific [place] 1.021 (1.010-1.035) 04/17/20 12:05 Urine Protein Trace (NEGATIVE) 04/17/20 12:05 Urine Glucose (UA) Negative (NEGATIVE) 04/17/20 12:05 Urine Ketones 2+ (NEGATIVE) H 04/17/20 12:05 Urine Blood Negative (NEGATIVE) 04/17/20 12:05 Urine Nitrite Positive (NEGATIVE) H 04/17/20 12:05 Urine Bilirubin Negative (NEGATIVE) 04/17/20 12:05 Urine Urobilinogen 1.0 mg/dL (0.2-1.0) 04/17/20 12:05 Ur Leukocyte Esterase 1+ (NEGATIVE) H 04/17/20 12:05 Urine WBC (Auto) 209 /uL (0-25.8) 04/17/20 12:05 Urine RBC (Auto) 4 /uL (0-23.9) 04/17/20 12:05 Urine Casts (Auto) 17 /uL (0-3.1) 04/17/20 12:05 U Pathogenic Cast Auto Wbc granular casts /lpf (NEGATIVE) 04/17/20 12:05 U Epithel Cells (Auto) 4 /uL (0-25.1) 04/17/20 12:05 Urine Bacteria (Auto) 2252 /uL (0-1359) 04/17/20 12:05 Vancomycin Pre-Dose 26.1 ug/ml (5-10) H 04/21/20 12:40 COVID-19 (ESTER) Not detected (Not Detected) 04/17/20 16:10 Blood Type O POSITIVE 04/16/20 06:40 Antibody Screen Negative 04/16/20 06:40 Microbiology 04/20/20 15:08 Back Gram Stain - Final 04/18/20 17:34 Wound Gram Stain - Final 04/18/20 17:34 Wound Wound Culture - Final Vr Ec Faecalis Escherichia Coli 04/19/20 10:18 Blood - Peripheral Venous Blood Culture - Preliminary NO GROWTH OBTAINED AFTER 48 HOURS, INCUBATION TO CONTINUE FOR 3 DAYS. 04/19/20 10:11 Blood - Peripheral Venous Blood Culture - Preliminary NO GROWTH OBTAINED AFTER 48 HOURS, INCUBATION TO CONTINUE FOR 3 DAYS. 04/17/20 12:14 Blood - Peripheral Venous Blood Culture - Final Non Lactose Fermenting Gnb 04/17/20 12:05 Urine - Urine - Catheterized Urine Culture - Final Pseudomonas Aeruginosa 04/17/20 12:10 Blood - Peripheral Venous Blood Culture - Final Escherichia Coli Problem List - Problems (1) Severe sepsis Code(s): A41.9 - SEPSIS, UNSPECIFIED ORGANISM; R65.20 - SEVERE SEPSIS WITHOUT SEPTIC SHOCK (2) Bacteremia due to Gram-negative bacteria Code(s): R78.81 - BACTEREMIA (3) Status post spinal surgery Code(s): Z98.890 - OTHER SPECIFIED POSTPROCEDURAL STATES (4) Toxic metabolic encephalopathy Code(s): G92 - TOXIC ENCEPHALOPATHY (5) Urinary tract infection Code(s): N39.0 - URINARY TRACT INFECTION, SITE NOT SPECIFIED Qualifiers: Urinary tract infection type: site unspecified Hematuria presence: without hematuria Qualified Code(s): N39.0 - Urinary tract infection, site not specified Assessment/Plan 79 y.o. female with PMH of dementia, HTN, depression, lumbar stenosis s/p laminectomy, neuropathy who underwent removal of L3-L5 hardware, L3-S1 laminectomies, L5-S1 PLIF/L3-S1 PSIF on 04/09/20 and yesterday noted to develop fe megha up to 101.8F and increase in wbc to 16.8K today along with lethargy and mild hypotension. Severe Sepsis Gram negative/E. coli Bacteremia Pseudomonas UTI s/p lumbar washout x 2/ wound vac placement -- Cultures results so far reviewed. continue Zosyn. D/C Vancomycin -- follow up final results of blood and intra-op wound cultures -- wbc trending up - repeat cbc in a.m. -- pt now afebrile cc time: 37 min
[2020-04-21] MEDS ORDERED: SMOFLIPID - FAT EMUL/SOY/MCT/OLIV/FISH OIL 250 ML EMULSION IV SCH (22:00)
[2020-04-22] MEDS ORDERED: PT OWN MED DRAWER 7, Y5N ONE ×2 (01:28→20:57)
[2020-04-22] MEDS: AMINO ACIDS 4.25%/D5W 1,000 ML IV SCH ×3 (01:57→23:42)
[2020-04-22] MEDS: MULTIVIT INJ. ADULT COMBO WITH VIT K 1 COMBO 10 ML VIAL IV SCH ×2 (01:59→23:43)
[2020-04-22] MEDS ORDERED: PIPERACILLIN/TAZOBACTAM 4.5 GM VIAL IVPB ONE ×4 (04:37→20:56)
[2020-04-22] MEDS ORDERED: DEXTROSE 5%-WATER 100 ML IVPB ONE ×4 (04:38→20:56)
[2020-04-22] MEDS: PIPERACILLIN/TAZOB 4.5 GM 4.5 GM in DEXTROSE 5%-WATER 100 ML IVPB SCH ×4 (04:50→21:16)
[2020-04-22 07:08] LABS: BASO % 0.8 % (0-2.0); EOS % 1.1 % (0-4.5); HEMATOCRIT 27.1 % (32.4-45.2); HEMOGLOBIN 8.7 GM/dL (10.7-15.3); LYMPH % 10.5 % (8-40); MCH 26.8 pg (25.7-33.7); MCHC 32.2 g/dl (32.0-36.0); MEAN CELL VOLUME 83.2 fl (80-96); MEAN PLT VOLUME 7.6 fl (7.5-11.1); MONO % 6.9 % (3.8-10.2); NEUT % 80.7 % (42.8-82.8); PLATELET COUNT 564 K/MM3 (134-434); RBC 3.26 M/mm3 (3.60-5.2); WHITE BLOOD COUNT 19.1 K/mm3 (4.0-10.0)
[2020-04-22 07:31] LABS: ALBUMIN 1.8 g/dl (3.4-5.0); BILIRUBIN,TOTAL 0.4 mg/dL (0.2-1); BLOOD UREA NITROGEN 24.2 mg/dL (7-18); CALCIUM 8.8 mg/dL (8.5-10.1); CREATININE 0.8 mg/dL (0.55-1.3); MAGNESIUM 1.7 mg/dL (1.8-2.4); PHOSPHOROUS 1.9 mg/dL (2.5-4.9); POTASSIUM 3.3 mmol/L (3.5-5.1); TOT PROT 5.9 g/dl (6.4-8.2)
[2020-04-22] MEDS ORDERED: POTASSIUM CHLORIDE TABS 20 MEQ TABLET.ER (FP) PO ONE (08:28)
[2020-04-22 08:30] LABS: ANISOCYTOSIS 2+; MACROCYTOSIS 0; PLATELET ESTIMATE INCREASED
[2020-04-22] MEDS: AMINO ACIDS/PROTEIN HYDROLYS 30 ML LIQUID.PKT PO SCH ×2 (08:54→16:52)
[2020-04-22] MEDS: PANTOPRAZOLE SOD 40 MG SUSPENSION PACKET PO SCH (08:54)
[2020-04-22] MEDS: SENNOSIDES/DOCUSATE COMBO (SENNA PLUS) TABLET (UD) PO SCH ×2 (09:08→21:13)
[2020-04-22] MEDS: MUPIROCIN 2% TOPICAL OINTMENT FOR DECOLONIZATION NS SCH ×2 (09:08→21:15)
[2020-04-22] MEDS: ZINC SULFATE 220 MG CAPSULE (FP) PO SCH (09:08)
[2020-04-22] MEDS: ASCORBIC ACID 500 MG TABLET (FP) PO SCH ×2 (09:08→21:12)
--- NOTE | 2020-04-22 10:41 | PN ---
Physical Exam: SUBJECTIVE: Patient seen and examined. No overnight events reported. Patient denies any pain. Vancomycin was held overnight due to a high Vancomycin trough level. OBJECTIVE: Vital Signs Period Temp Pulse Resp BP Sys/Lepe Pulse Ox Last 24 Hr 97.9 F-98.4 F 58-73 13-20 113-173/42-88 97-100 GENERAL: Frail, sleepy, but arousable. AO x1 to self, in no acute distress HEAD: Normal with no signs of trauma. EYES: PERRL, extraocular movements intact ENT: dry mucous membranes. NECK: Trachea midline, full range of motion, supple. LUNGS: Breath sounds equal, clear to auscultation bilaterally, no wheezes, no crackles, no accessory muscle use. HEART: Regular rate and rhythm, S1, S2 without murmur, rub or gallop. ABDOMEN: Soft, nontender, nondistended, normoactive bowel sounds, no guarding, no rebound. EXTREMITIES: 2+ pulses, warm, L hand cold to touch, no edema. SKIN: Warm, dry, normal turgor, no rashes or lesions noted Laboratory Results - last 24 hr 04/21/20 04/22/20 04/22/20 12:40 06:19 06:19 WBC 19.1 H RBC 3.26 L Hgb 8.7 L Hct 27.1 L MCV 83.2 MCH 26.8 MCHC 32.2 RDW 14.0 Plt Count 564 H MPV 7.6 Absolute Neuts (auto) 15.4 H Neutrophils % 80.7 Neutrophils % (Manual) 77.1 Band Neutrophils % 0.0 Lymphocytes % 10.5 D Lymphocytes % (Manual) 9.4 D Monocytes % 6.9 Monocytes % (Manual) 12 H D Eosinophils % 1.1 D Eosinophils % (Manual) 1.0 D Basophils % 0.8 Basophils % (Manual) 0.0 Myelocytes % (Man) 1 D Promyelocytes % (Man) 0 Blast Cells % (Manual) 0 Nucleated RBC % 0 Metamyelocytes 0 Hypochromia 1+ Platelet Estimate Increased Polychromasia 1+ Poikilocytosis 0 Anisocytosis 2+ Microcytosis 2+ Macrocytosis 0 Sodium 141 Potassium 3.3 L Chloride 108 H Carbon Dioxide 25 Anion Gap 9 BUN 24.2 H Creatinine 0.8 Est GFR (CKD-EPI)AfAm 82.42 Est GFR (CKD-EPI)NonAf 71.11 Random Glucose 102 Calcium 8.8 Phosphorus 1.9 L Magnesium 1.7 L Total Bilirubin 0.4 AST 33 ALT 25 Alkaline Phosphatase 84 Total Protein 5.9 L Albumin 1.8 L Vancomycin Pre-Dose 26.1 H Active Medications Generic Name Dose Route Start Last Admin Trade Name Freq PRN Reason Stop Dose Admin Acetaminophen 650 mg 04/19/20 02:19 Tylenol - PO Q6H PRN Fever Amino Acids 30 ml 04/19/20 08:00 04/22/20 08:54 Prosource No Carb Liquid Pkt PO 30 ml BID@0800,1730 JAYE Administration Ascorbic Acid 500 mg 04/21/20 22:00 04/22/20 09:08 Vitamin C - PO 500 mg BID JAYE Administration Chlorhexidine Gluconate 1 applic 04/20/20 22:00 04/21/20 21:45 Hibiclens For Decolonization - TP 1 applic HS JAYE Administration Citalopram Hydrobromide 20 mg 04/19/20 22:00 04/21/20 21:45 Celexa - PO 20 mg HS JAYE Administration Fat Emulsion-Soy/MCT/[place]/Fish Oil 250 ml 04/21/20 22:00 04/22/20 01:58 Smoflipid 20% Iv Fat Emulsion IV 250 ml DAILY@2200 JAYE Administration Fentanyl 25 mcg 04/20/20 16:17 Sublimaze Injection - IVPUSH [id number] PRN PAIN-PACU ORDER X 4 DOSES ONLY Amino Acids 1,000 mls @ 84 mls/hr 04/19/20 12:00 04/22/20 01:57 Clinimix - IV 84 mls/hr Q12H JAYE Administration Piperacillin Sod/Tazobactam 100 mls @ 200 mls/hr 04/19/20 21:00 04/22/20 08:54 Sod 4.5 gm/ Dextrose IVPB 200 mls/hr Q6H-IV JAYE Administration Protocol Mirtazapine 7.5 mg 04/19/20 22:00 04/21/20 21:44 Remeron - PO 7.5 mg HS JAYE Administration Morphine Sulfate 2 mg 04/19/20 12:02 04/21/20 21:45 Morphine Sulfate IVPUSH 2 mg Q4H PRN Administration PAIN LEVEL 6-10 Multivitamins/Minerals 10 ml 07/17/20 00:00 04/22/20 01:59 Infuvite Adult - IV 10 ml Q24H JAYE Administration Mupirocin 1 applic 04/20/20 22:00 04/22/20 09:08 Bactroban Ointment (For Decolonization) - NS 04/25/20 21:59 1 applic BID JAYE Administration Ondansetron HCl 4 mg 04/20/20 16:17 Zofran Injection IVPUSH Q6H PRN NAUSEA AND/OR VOMITING Pantoprazole Sodium 40 mg 04/22/20 01:11 04/22/20 08:54 Protonix Packets For Oral Suspension - PO 40 mg ACBK JAYE Administration Polyethylene Glycol 17 gm 04/22/20 10:30 Miralax (For Daily Use) - PO BID JAYE Senna/Docusate Sodium 1 tablet 04/22/20 10:00 04/22/20 09:08 Pericolace - PO 1 tablet BID JAYE Administration Zinc Sulfate 220 mg 04/22/20 10:00 04/22/20 09:08 Orazinc - PO 220 mg DAILY JAYE Administration ASSESSMENT/PLAN: 79 yo F PMHx hypertension, dementia, depression, spinal stenosis, and neuropathy with recent extensive lumbar back surgery (removal of hardware L3-L5 including L4-L5 intervertebral cage, inspection of fusion mass, L3-S1 laminectomies, L5-S1 PLIF, L3-S1 posterior instrumented spinal fusion) on 04/09/2020; now admitted s/p I&D of the lumbar spine. Blood Cx growing gram- bacilli, Urine Cx growing Pseudomonas, and CXR remarkable for blunting of R costophrenic angle. On vanc and zosyn. Patient did not receive a PEG or NG tube, was taken to OR on 04/20/20 for another washout, and per Dr. Cuenca plan is rehab next week. #Neuro History of dementia, depression - Continue home Mirtazapine, Citalopram - Monitor for signs of mental status changes #Pulm - Currently saturating well, without respiratory distress. - Incentive spirometer q15 minutes - Monitor for change in oxygen requirements, respiratory distress #Cardio History of hypertension - holding losartan due to labile BP - continue monitoring BPs #ID Sepsis (febrile, leukocytosis, positive blood and urine cultures) S/p I&D of infected wound lumbar spine decubitus ulcer - wound, blood, and urine cultures showing bacterial growth - continue Zosyn (first dose 04/18 @ 8.30am) -Vancomycin was held today due to a high Vancomycin trough -repeat Vancomycin trough tomorrow - continue to monitor vitals and CBC - ID consulted #MSK s/p extensive lumbar back surgery on 04/09 s/p I&D of purulent subfascial lumbar wound - Pain control with Oxycodone and Morphine PRN. NO NSAIDs per orthopedic surgery #GI Sub-optimal nutrition (negative nitrogen balance) - GI consulted - speech pathology consulted - patient currently receiving IV clinimax with added vitamins #FEN -LR 75mL/hr, Clinimix, Clinolipid -monitor K -puree diet with IV supplementation #PPx - DVT: SCDs bilateral lower extremities - GI: pantoprazole Dispo: continue ICU monitoring Problem List - Problems (1) Radiculopathy of lumbosacral region Code(s): M54.17 - RADICULOPATHY, LUMBOSACRAL REGION (2) Status post spinal surgery Code(s): Z98.890 - OTHER SPECIFIED POSTPROCEDURAL STATES Visit type - Emergency Visit Emergency Visit: Yes ED Registration Date: 04/09/20 Care time: The patient presented to the Emergency Department on the above date and was hospitalized for further evaluation of their emergent condition. - New Patient This patient is new to me today: Yes Date on this admission: 04/22/20 - Critical Care Critical Care patient: Yes Total Critical Care Time (in minutes): 35 Critical Care Statement: The care of this patient involved high complexity decision making to prevent further life threatening deterioration of the patient's condition and/or to evaluate & treat vital organ system(s) failure or risk of failure. - Discharge Referral Referred to [facility] No ATTENDING PHYSICIAN STATEMENT I saw and evaluated the patient. I reviewed the resident's note and discussed the case with the resident. I agree with the resident's findings and plan as documented. SUBJECTIVE: OBJECTIVE: ASSESSMENT AND PLAN:
[2020-04-22] MEDS: POLYETHYLENE GLYCOL 3350 119 GM BTL PO SCH ×2 (12:41→21:15)
--- NOTE | 2020-04-22 13:12 | PN ---
Teaching Attending Note Name of Resident: Noah Salinas ATTENDING PHYSICIAN STATEMENT I saw and evaluated the patient. I reviewed the resident's note and discussed the case with the resident. I agree with the resident's findings and plan as documented. SUBJECTIVE: SUBJECTIVE: Patient seen and examined in the ICU. POD #4: S/P I&D of the lumbar spine and wash out ; POD #2 wash out and VAC placement. Awake and alert. Reports less surgical site pain. Poor PO intake. No CP or SOB. Hemodynamics stable. Intake & Output 04/19/20 04/20/20 04/21/20 04/22/20 23:59 23:59 23:59 23:59 Intake Total 2695 5224 3285 1618 Output Total 1650 3150 2650 1700 Balance 1045 2074 635 -82 Weight 140 lb 12.8 oz 140 lb 146 lb 9.718 oz Last Vital Signs Temp Pulse Resp BP Pulse Ox 97.9 F 76 18 125/81 97 04/22/20 08:32 04/22/20 12:00 04/22/20 12:00 04/22/20 12:00 04/22/20 12:00 Active Medications Acetaminophen (Tylenol -) 650 mg PO Q6H PRN PRN Reason: Fever Amino Acids (Prosource No Carb Liquid Pkt) 30 ml PO BID@0800,1730 [facility] Last Admin: 04/22/20 08:54 Dose: 30 ml Documented by: Ascorbic Acid (Vitamin C -) 500 mg PO BID [facility] Last Admin: 04/22/20 09:08 Dose: 500 mg Documented by: Chlorhexidine Gluconate (Hibiclens For Decolonization -) 1 applic TP [facility] Last Admin: 04/21/20 21:45 Dose: 1 applic Documented by: Citalopram Hydrobromide (Celexa -) 20 mg PO [facility] Last Admin: 04/21/20 21:45 Dose: 20 mg Documented by: Fat Emulsion-Soy/MCT/[place]/Fish Oil (Smoflipid 20% Iv Fat Emulsion) 250 ml IV DAILY@2200 [facility] Last Admin: 04/22/20 01:58 Dose: 250 ml Documented by: Fentanyl (Sublimaze Injection -) 25 mcg IVPUSH [id number] PRN PRN Reason: PAIN-PACU ORDER X 4 DOSES ONLY Amino Acids (Clinimix -) 1,000 mls @ 84 mls/hr IV Q12H [facility] Last Admin: 04/22/20 12:41 Dose: 84 mls/hr Documented by: Piperacillin Sod/Tazobactam (Sod 4.5 gm/ Dextrose) 100 mls @ 200 mls/hr IVPB Q6H-IV [facility]; Protocol Last Admin: 04/22/20 08:54 Dose: 200 mls/hr Documented by: Mirtazapine (Remeron -) 7.5 mg PO HS [facility] Last Admin: 04/21/20 21:44 Dose: 7.5 mg Documented by: Morphine Sulfate (Morphine Sulfate) 2 mg IVPUSH Q4H PRN PRN Reason: PAIN LEVEL 6-10 Last Admin: 04/21/20 21:45 Dose: 2 mg Documented by: Multivitamins/Minerals (Infuvite Adult -) 10 ml IV Q24H [facility] Last Admin: 04/22/20 01:59 Dose: 10 ml Documented by: Mupirocin (Bactroban Ointment (For Decolonization) -) 1 applic NS BID [facility] Stop: 04/25/20 21:59 Last Admin: 04/22/20 09:08 Dose: 1 applic Documented by: Ondansetron HCl (Zofran Injection) 4 mg IVPUSH Q6H PRN PRN Reason: NAUSEA AND/OR VOMITING Pantoprazole Sodium (Protonix Packets For Oral Suspension -) 40 mg PO ACBK [facility] Last Admin: 04/22/20 08:54 Dose: 40 mg Documented by: Polyethylene Glycol (Miralax (For Daily Use) -) 17 gm PO BID [facility] Last Admin: 04/22/20 12:41 Dose: 17 gm Documented by: Senna/Docusate Sodium (Pericolace -) 1 tablet PO BID [facility] Last Admin: 04/22/20 09:08 Dose: 1 tablet Documented by: Zinc Sulfate (Orazinc -) 220 mg PO DAILY [facility] Last Admin: 04/22/20 09:08 Dose: 220 mg Documented by: GENERAL: Awake and alert, NAD HEAD: NCAT. EYES: conjunctiva clear. EARS, NOSE, THROAT: Oropharynx clear without exudates. Moist mucous membranes. NECK: Supple; no LAD LUNGS: Breath sounds equal, clear to auscultation bilaterally. No wheezes, and no crackles. No accessory muscle use. HEART: Regular rate and rhythm, normal S1 and S2 without murmur, rub or gallop. ABDOMEN: Soft, nontender, non distended abdomen, normoactive bowel sounds. MUSCULOSKELETAL: unable to assess ROM as pt was drowsy UPPER EXTREMITIES: 2+ pulses, warm, well-perfused. No peripheral edema. LOWER EXTREMITIES: 2+ pulses, warm, well-perfused. No calf tenderness. No peripheral edema. NEUROLOGICAL: Non-focal SKIN: Warm, dry; surgical site clean, dry, and intact Laboratory Results - last 24 hr 04/21/20 04/22/20 04/22/20 12:40 06:19 06:19 WBC 19.1 H RBC 3.26 L Hgb 8.7 L Hct 27.1 L MCV 83.2 MCH 26.8 MCHC 32.2 RDW 14.0 Plt Count 564 H MPV 7.6 Absolute Neuts (auto) 15.4 H Neutrophils % 80.7 Neutrophils % (Manual) 77.1 Band Neutrophils % 0.0 Lymphocytes % 10.5 D Lymphocytes % (Manual) 9.4 D Monocytes % 6.9 Monocytes % (Manual) 12 H D Eosinophils % 1.1 D Eosinophils % (Manual) 1.0 D Basophils % 0.8 Basophils % (Manual) 0.0 Myelocytes % (Man) 1 D Promyelocytes % (Man) 0 Blast Cells % (Manual) 0 Nucleated RBC % 0 Metamyelocytes 0 Hypochromia 1+ Platelet Estimate Increased Polychromasia 1+ Poikilocytosis 0 Anisocytosis 2+ Microcytosis 2+ Macrocytosis 0 Sodium 141 Potassium 3.3 L Chloride 108 H Carbon Dioxide 25 Anion Gap 9 BUN 24.2 H Creatinine 0.8 Est GFR (CKD-EPI)AfAm 82.42 Est GFR (CKD-EPI)NonAf 71.11 Random Glucose 102 Calcium 8.8 Phosphorus 1.9 L Magnesium 1.7 L Total Bilirubin 0.4 AST 33 ALT 25 Alkaline Phosphatase 84 Total Protein 5.9 L Albumin 1.8 L Vancomycin Pre-Dose 26.1 H ASSESSMENT/PLAN: POD #4 : S/P I&D of the lumbar spine and wash out. POD #2 : Wash out and VAC placement S/P removal of hardware L3-L5 including L4-L5 intervertebral cage, inspection of fusion mass, L3-S1 laminectomies, L5-S1 PLIF, L3-S1 posterior instrumented spinal fusion on 04/09/2020 Hypertension Dementia Depression Spinal stenosis Neuropathy Replete Lytes and follow repeat CHEM today IVF PO as tolerated Strict I & O Supplemental O2 as needed ABX per ID Local wound care Floor when cleared by surgery Dr Almazan
--- NOTE | 2020-04-22 13:43 | OP ---
Date of Operation: 04/20/2020 Surgeon: Marko Cuenca M.D. Pre-Operative Diagnosis: Deep lumbar spine infection. Post-Operative Diagnosis: Deep lumbar spine infection. Surgical Procedure: 1. Incision, drainage, debridement, and irrigation deep lumbar spine wound abscess (subfascial). (07593) 2. Application of negative pressure therapy wound vac (17109, 17245) Anesthesia: General endotracheal tube anesthesia. Position: Prone. Incision: Midline. Estimated Blood Loss: Minimal. Intravenous Fluid: 500cc crystalloid. Drains: 1 x WoundVac. Complications: None. Urine Output: See anesthesia record. Bacteriology: 3 x culture sticks. Closure: Application of wound vac. Indications: The patient is a 80-year-old female who was indicated for a incision, drainage, irrigation, and debridement of his/her posterior thoracolumbar spine wound to evacuate and treat local wound contamination. The patient was identified in the holding area by her arm band. A long discussion was held with the patient regarding the risks, benefits, and alternatives of the above-named procedure. The risks include, but are not limited to: Pain, bleeding, infection, damage to surrounding structures (including nerves, blood vessels, skin, ligaments, tendons, and bone), dysphagia, dysphonia, nerve palsy, wound complications, pseudarthrosis, failure of fusion, failure of hardware/implants/reduction, need for further surgery, blood clots, myocardial infarction, pulmonary embolism, cerebrovascular event, anesthesia complications, neurological injury, loss of function, and . Benefits as mentioned above. Alternatives include no surgery. All questions were answered. The patient understood and agreed to the procedure. Informed telephone consent was obtained, witnessed, and verified from the patient's son by the ICU team prior to surgery. The patient was taken to the operating room after being seen by the anesthesia and nursing staff. Procedure: The patient was brought into the operating room, placed on the OR table and secured with a safety strap. Consent and the operative site was again verified with the patient and nursing and anesthesia staff. Anesthesia was then administered. A time-out was then done led by , the attending surgeon. The patient was then safely placed in a prone position with all bony prominences well-padded on a [place] frame with strict attention paid to maintenance of sagittal vertical alignment. The arms were placed on well-padded arm boards and maintained with standard forward flexion, abduction, and external rotation of the shoulders, and flexion of the elbows. Special attention was given to the safe positioning of the cervical spine. The patients eyes and belly were all free, and her breasts were offloaded. The table was placed in 5 degrees of reverse Trendelenburg position to avoid ophthalmic vein congestion. The lumbar wound site was then prepped and draped in the standard sterile fashion using betadine prep and scrub, wiped off with alcohol, and Duraprep applied. Pre-operative imaging was available for intra-operative evaluation. Time-out was again done, and the case began. The entirety of the previously made thoracolumbar spine incision was opened. All Lautenbach sutures were removed. All packing was removed. There was no gross purulence. The wound was malodorous. Culture swab sticks were used to swab the wound (deep and superficial) and sent to the lab. All hardware was exposed. The wound dimensions were measured as follows: Length: 21cm. Width: 5cm. Depth: 7cm. The wound was irrigated with normal saline solution. All soft tissues and hardware were and mechanically debrided using multiple sponges with betadine soap. The wound was then irrigated with 3L normal saline solution. The wound was filled with 50% normal saline and 50% betadine solution. The wound was soaked in dilution betadine solution for 3 minutes. The wound was then irrigated with another 3L normal saline solution. Patches of bilateral erector spinae muscle necrosis were debrided to depth of healthy, bleeding tissue. The dura was intact. The anesthesiologist performed a Valsalva maneuver up to 40mmHg and there was no evidence of active cerebrospinal fluid (CSF) leak nor active arterial or venous bleeding. Already, granulation tissue had grown over the exposed dura. Closure: With, hemostasis was assured, and the wound was packed with WoundVac sponges The superficial and deep tissues were approximated using #1 PDS monofilament sutures using Lalynnnbach sepsis suture technique. The skin was then cleaned, dried, and painted with DuraPrep. Adhesive [place] and WoundVac dressing was applied. A tongue-type sponge was utilized to place the WoundVac suction device to the side of the patient's flank, so that she wouldn't be lying directly on it. The WoundVac was activated with 125mmHg negative pressure therapy. There was no suction leak. The sponges contracted into the wound, demonstrating successful WoundVac placement. Sponge and needle counts were correct at the end of the case, and I, the attending surgeon, was present and scrubbed throughout the case. The patient was then transferred to a supine position on a hopital bed. The patient was then extubated by the anesthesia staff without incident or complications and was then transferred to the recovery room in stable condition having tolerated the procedure well. Marko Cuenca M.D. SHREYA/[id number] MTDD
[2020-04-22 16:35] LABS: BLOOD UREA NITROGEN 23.4 mg/dL (7-18); CALCIUM 8.5 mg/dL (8.5-10.1); CREATININE 0.9 mg/dL (0.55-1.3); POTASSIUM 3.2 mmol/L (3.5-5.1)
[2020-04-22] MEDS: KCL 10 MEQ IVPB 10 MEQ/100 ML INFUS.BAG IVPB SCH ×3 (16:51→18:52)
[2020-04-22] MEDS: CITALOPRAM HYDROBROMIDE 20 MG TABLET PO SCH (21:09)
[2020-04-22] MEDS: MIRTAZAPINE 15 MG TABLET (FP) PO SCH (21:10)
[2020-04-22] MEDS: CHLORHEXIDINE GLUCONATE 4% CLEANSER FOR DECOLONIZATION TP SCH (21:15)
--- NOTE | 2020-04-22 21:33 | PN ---
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, Physician History of Present Illness: Pt seen in ICU. She is alert and responsive. States she is comfortable. Remains afebrile but wbc up to 19K. Denies SOB/cough, abd pain/n/v/d and has no other specific complaints. - Current Medication List Current Medications: Active Medications Acetaminophen (Tylenol -) 650 mg PO Q6H PRN PRN Reason: Fever Amino Acids (Prosource No Carb Liquid Pkt) 30 ml PO BID@0800,1730 [facility] Last Admin: 04/22/20 16:52 Dose: Not Given Documented by: Ascorbic Acid (Vitamin C -) 500 mg PO BID [facility] Last Admin: 04/22/20 21:12 Dose: 500 mg Documented by: Chlorhexidine Gluconate (Hibiclens For Decolonization -) 1 applic TP [facility] Last Admin: 04/22/20 21:15 Dose: 1 applic Documented by: Citalopram Hydrobromide (Celexa -) 20 mg PO [facility] Last Admin: 04/22/20 21:09 Dose: 20 mg Documented by: Fat Emulsion-Soy/MCT/[place]/Fish Oil (Smoflipid 20% Iv Fat Emulsion) 250 ml IV DAILY@2200 [facility] Last Admin: 04/22/20 01:58 Dose: 250 ml Documented by: Fentanyl (Sublimaze Injection -) 25 mcg IVPUSH [id number] PRN PRN Reason: PAIN-PACU ORDER X 4 DOSES ONLY Amino Acids (Clinimix -) 1,000 mls @ 84 mls/hr IV Q12H [facility] Last Admin: 04/22/20 12:41 Dose: 84 mls/hr Documented by: Piperacillin Sod/Tazobactam (Sod 4.5 gm/ Dextrose) 100 mls @ 200 mls/hr IVPB Q6H-IV [facility]; Protocol Last Admin: 04/22/20 21:16 Dose: 200 mls/hr Documented by: Mirtazapine (Remeron -) 7.5 mg PO [facility] Last Admin: 04/22/20 21:10 Dose: 7.5 mg Documented by: Morphine Sulfate (Morphine Sulfate) 2 mg IVPUSH Q4H PRN PRN Reason: PAIN LEVEL 6-10 Last Admin: 04/21/20 21:45 Dose: 2 mg Documented by: Multivitamins/Minerals (Infuvite Adult -) 10 ml IV Q24H [facility] Last Admin: 04/22/20 01:59 Dose: 10 ml Documented by: Mupirocin (Bactroban Ointment (For Decolonization) -) 1 applic NS BID [facility] Stop: 04/25/20 21:59 Last Admin: 04/22/20 21:15 Dose: 1 applic Documented by: Ondansetron HCl (Zofran Injection) 4 mg IVPUSH Q6H PRN PRN Reason: NAUSEA AND/OR VOMITING Pantoprazole Sodium (Protonix Packets For Oral Suspension -) 40 mg PO ACBK [facility] Last Admin: 04/22/20 08:54 Dose: 40 mg Documented by: Polyethylene Glycol (Miralax (For Daily Use) -) 17 gm PO BID [facility] Last Admin: 04/22/20 21:15 Dose: 17 gm Documented by: Senna/Docusate Sodium (Pericolace -) 1 tablet PO BID [facility] Last Admin: 04/22/20 21:13 Dose: 1 tablet Documented by: Zinc Sulfate (Orazinc -) 220 mg PO DAILY [facility] Last Admin: 04/22/20 09:08 Dose: 220 mg Documented by: - Objective Vital Signs: Vital Signs Temperature 98.4 F 04/22/20 20:00 Pulse Rate 76 04/22/20 20:00 Respiratory Rate 18 04/22/20 20:00 Blood Pressure 143/95 04/22/20 20:00 O2 Sat by Pulse Oximetry (%) 92 L 04/22/20 20:00 Constitutional: Yes: No Distress, Calm Cardiovascular: Yes: Regular Rate and Rhythm Respiratory: Yes: CTA Bilaterally Gastrointestinal: Yes: Normal Bowel Sounds, Soft Genitourinary: Yes: [place] Present Extremities: Yes: WNL Wound/Incision: Yes: Other (spinal wound vac) Neurological: Yes: Alert Labs: CBC, BMP 04/22/20 06:19 04/22/20 15:30 Laboratory Last Values WBC 19.1 K/mm3 (4.0-10.0) H 04/22/20 06:19 RBC 3.26 M/mm3 (3.60-5.2) L 04/22/20 06:19 Hgb 8.7 GM/dL (10.7-15.3) L 04/22/20 06:19 Hct 27.1 % (32.4-45.2) L 04/22/20 06:19 MCV 83.2 fl (80-96) 04/22/20 06:19 MCH 26.8 pg (25.7-33.7) 04/22/20 06:19 MCHC 32.2 g/dl (32.0-36.0) 04/22/20 06:19 RDW 14.0 % (11.6-15.6) 04/22/20 06:19 Plt Count 564 K/MM3 (134-434) H 04/22/20 06:19 MPV 7.6 fl (7.5-11.1) 04/22/20 06:19 Absolute Neuts (auto) 15.4 K/mm3 (1.5-8.0) H 04/22/20 06:19 Neutrophils % 80.7 % (42.8-82.8) 04/22/20 06:19 Neutrophils % (Manual) 77.1 % (42.8-82.8) 04/22/20 06:19 Band Neutrophils % 0.0 % 04/22/20 06:19 Lymphocytes % 10.5 % (8-40) D 04/22/20 06:19 Lymphocytes % (Manual) 9.4 % (8-40) D 04/22/20 06:19 Monocytes % 6.9 % (3.8-10.2) 04/22/20 06:19 Monocytes % (Manual) 12 % (3.8-10.2) H D 04/22/20 06:19 Eosinophils % 1.1 % (0-4.5) D 04/22/20 06:19 Eosinophils % (Manual) 1.0 % (0-4.5) D 04/22/20 06:19 Basophils % 0.8 % (0-2.0) 04/22/20 06:19 Basophils % (Manual) 0.0 % (0-2.0) 04/22/20 06:19 Myelocytes % (Man) 1 % (0-2) D 04/22/20 06:19 Promyelocytes % (Man) 0 % (0-2) 04/22/20 06:19 Blast Cells % (Manual) 0 % (0-0) 04/22/20 06:19 Nucleated RBC % 0 % (0-0) 04/22/20 06:19 Metamyelocytes 0 % (0-2) 04/22/20 06:19 Hypochromia 1+ 04/22/20 06:19 Platelet Estimate Increased 04/22/20 06:19 Platelet Comment Present 04/12/20 08:40 Polychromasia 1+ 04/22/20 06:19 Poikilocytosis 0 04/22/20 06:19 Anisocytosis 2+ 04/22/20 06:19 Microcytosis 2+ 04/22/20 06:19 Macrocytosis 0 04/22/20 06:19 Target Cells 1+ 04/18/20 06:30 Retic Count 0.98 % (0.5-1.5) 04/20/20 05:40 Anticoagulation Therapy No Result Required. 04/20/20 05:48 Puncture Site Right radial 04/20/20 05:48 Patient Temperature No Result Required. 04/20/20 05:48 ABG pH 7.398 (7.350-7.450) 04/20/20 05:48 ABG pCO2 43.50 mmHg (35-45) 04/20/20 05:48 ABG pO2 106.6 mmHg (80-100) H 04/20/20 05:48 ABG HCO3 26.2 mmol/L (22-27) 04/20/20 05:48 ABG O2 Sat (Measured) 97.9 mmHg (95-98) 04/20/20 05:48 ABG O2 Content No Result Required. 04/20/20 05:48 ABG Base Excess 1.2 mmol/L (-2-2) 04/20/20 05:48 Yeyo Test Positive 04/20/20 05:48 Patient On Oxygen Yes 04/20/20 05:48 O2 Delivery Device N/c 04/20/20 05:48 Oxygen Flow Rate 2.5l 04/20/20 05:48 Vent Mode No Result Required. 04/20/20 05:48 Vent Rate No Result Required. 04/20/20 05:48 Mechanical Rate No Result Required. 04/20/20 05:48 PEEP No Result Required. 04/20/20 05:48 Pressure Support Vent No Result Required. 04/20/20 05:48 Sodium 137 mmol/L (136-145) 04/22/20 15:30 Potassium 3.2 mmol/L (3.5-5.1) L 04/22/20 15:30 Chloride 104 mmol/L (98-107) 04/22/20 15:30 Carbon Dioxide 26 mmol/L (21-32) 04/22/20 15:30 Anion Gap 7 MMOL/L (8-16) L 04/22/20 15:30 BUN 23.4 mg/dL (7-18) H 04/22/20 15:30 Creatinine 0.9 mg/dL (0.55-1.3) 04/22/20 15:30 Est GFR (CKD-EPI)AfAm 71.48 04/22/20 15:30 Est GFR (CKD-EPI)NonAf 61.67 04/22/20 15:30 POC Glucometer 114 UNITS (80-120) 04/19/20 05:43 Random Glucose 217 mg/dL (74-106) H 04/22/20 15:30 Lactic Acid 0.9 mmol/L (0.4-2.0) 04/17/20 12:10 Calcium 8.5 mg/dL (8.5-10.1) 04/22/20 15:30 Phosphorus 1.9 mg/dL (2.5-4.9) L 04/22/20 06:19 Magnesium 1.7 mg/dL (1.8-2.4) L 04/22/20 06:19 Iron 64 ug/dL (50-175) 04/20/20 05:40 TIBC 108 ug/dL (250-450) L 04/20/20 05:40 Iron Saturation 59 % (17.5-39) H 04/20/20 05:40 Unsaturated IBC 44 ug/dL (200-275) L 04/20/20 05:40 Ferritin 836.1 ng/ml (8-388) H 04/20/20 05:40 Total Bilirubin 0.4 mg/dL (0.2-1) 04/22/20 06:19 AST 33 U/L (15-37) 04/22/20 06:19 ALT 25 U/L (13-61) 04/22/20 06:19 Alkaline Phosphatase 84 U/L (45-117) 04/22/20 06:19 Total Protein 5.9 g/dl (6.4-8.2) L 04/22/20 06:19 Albumin 1.8 g/dl (3.4-5.0) L 04/22/20 06:19 Triglycerides 255 mg/dL (0-150) H 04/20/20 05:40 Cholesterol 145 mg/dL (50-200) 04/20/20 05:40 Total LDL Cholesterol 75 mg/dL (5-100) 04/20/20 05:40 HDL Cholesterol 15 mg/dL (40-60) L 04/20/20 05:40 Total Amylase 120 U/L (25-115) H 04/20/20 05:40 Lipase 264 U/L (73-393) 04/20/20 05:40 Urine Color Yellow 04/17/20 12:05 Urine Appearance Clear 04/17/20 12:05 Urine pH 6.0 (5.0-8.0) 04/17/20 12:05 Ur Specific [place] 1.021 (1.010-1.035) 04/17/20 12:05 Urine Protein Trace (NEGATIVE) 04/17/20 12:05 Urine Glucose (UA) Negative (NEGATIVE) 04/17/20 12:05 Urine Ketones 2+ (NEGATIVE) H 04/17/20 12:05 Urine Blood Negative (NEGATIVE) 04/17/20 12:05 Urine Nitrite Positive (NEGATIVE) H 04/17/20 12:05 Urine Bilirubin Negative (NEGATIVE) 04/17/20 12:05 Urine Urobilinogen 1.0 mg/dL (0.2-1.0) 04/17/20 12:05 Ur Leukocyte Esterase 1+ (NEGATIVE) H 04/17/20 12:05 Urine WBC (Auto) 209 /uL (0-25.8) 04/17/20 12:05 Urine RBC (Auto) 4 /uL (0-23.9) 04/17/20 12:05 Urine Casts (Auto) 17 /uL (0-3.1) 04/17/20 12:05 U Pathogenic Cast Auto Wbc granular casts /lpf (NEGATIVE) 04/17/20 12:05 U Epithel Cells (Auto) 4 /uL (0-25.1) 04/17/20 12:05 Urine Bacteria (Auto) 2252 /uL (0-1359) 04/17/20 12:05 Vancomycin Pre-Dose 26.1 ug/ml (5-10) H 04/21/20 12:40 COVID-19 (ESTER) Not detected (Not Detected) 04/17/20 16:10 Blood Type O POSITIVE 04/16/20 06:40 Antibody Screen Negative 04/16/20 06:40 Microbiology 04/20/20 15:08 Back Gram Stain - Final 04/20/20 15:08 Back Wound Culture - Preliminary 04/18/20 17:34 Wound Gram Stain - Final 04/18/20 17:34 Wound Wound Culture - Final Vr Ec Faecalis Escherichia Coli Citrobacter Murliniae 04/19/20 10:18 Blood - Peripheral Venous Blood Culture - Preliminary NO GROWTH OBTAINED AFTER 72 HOURS, INCUBATION TO CONTINUE FOR 2 DAYS. 04/19/20 10:11 Blood - Peripheral Venous Blood Culture - Preliminary NO GROWTH OBTAINED AFTER 72 HOURS, INCUBATION TO CONTINUE FOR 2 DAYS. 04/17/20 12:14 Blood - Peripheral Venous Blood Culture - Final Non Lactose Fermenting Gnb 04/17/20 12:05 Urine - Urine - Catheterized Urine Culture - Final Pseudomonas Aeruginosa 04/17/20 12:10 Blood - Peripheral Venous Blood Culture - Final Escherichia Coli Problem List - Problems (1) Severe sepsis Code(s): A41.9 - SEPSIS, UNSPECIFIED ORGANISM; R65.20 - SEVERE SEPSIS WITHOUT SEPTIC SHOCK (2) Bacteremia due to Gram-negative bacteria Code(s): R78.81 - BACTEREMIA (3) Status post spinal surgery Code(s): Z98.890 - OTHER SPECIFIED POSTPROCEDURAL STATES (4) Toxic metabolic encephalopathy Code(s): G92 - TOXIC ENCEPHALOPATHY (5) Urinary tract infection Code(s): N39.0 - URINARY TRACT INFECTION, SITE NOT SPECIFIED Qualifiers: Urinary tract infection type: site unspecified Hematuria presence: without hematuria Qualified Code(s): N39.0 - Urinary tract infection, site not speci fied Assessment/Plan 79 y.o. female with PMH of dementia, HTN, depression, lumbar stenosis s/p laminectomy, neuropathy who underwent removal of L3-L5 hardware, L3-S1 stover inectomies, L5-S1 PLIF/L3-S1 PSIF on 04/09/20 and noted to develop fever up to 101.8F and increase in wbc to 16.8K along with lethargy and mild hypotension Severe Sepsis Gram negative/E. coli Bacteremia Pseudomonas UTI s/p lumbar wound I+D, s/p washout/wound vac placement -- wbc increased to 19K today although afebrile/vitals stable -- continue Zosyn for now -- follow up last wound culture results -- repeat cbc in am, monitor vitals closely cc time: 37 min
[2020-04-22] MEDS ORDERED: FAT EMUL/SOY/MCT/OLIV/FISH OIL 250 ML IV SCH (22:00)
[2020-04-23] MEDS: AMINO ACIDS 4.25%/D5W 1,000 ML IV SCH (03:00)
[2020-04-23] MEDS: PIPERACILLIN/TAZOB 4.5 GM 4.5 GM in DEXTROSE 5%-WATER 100 ML IVPB SCH ×4 (03:35→21:32)
[2020-04-23] MEDS ORDERED: DEXTROSE 5%-WATER 100 ML IVPB ONE ×4 (03:58→21:18)
[2020-04-23] MEDS ORDERED: PIPERACILLIN/TAZOBACTAM 4.5 GM VIAL IVPB ONE ×4 (03:58→21:17)
[2020-04-23 06:07] LABS: BASO % 1.3 % (0-2.0); EOS % 1.5 % (0-4.5); HEMATOCRIT 26.7 % (32.4-45.2); HEMOGLOBIN 8.6 GM/dL (10.7-15.3); LYMPH % 10.6 % (8-40); MCH 26.7 pg (25.7-33.7); MCHC 32.1 g/dl (32.0-36.0); MEAN CELL VOLUME 83.1 fl (80-96); MEAN PLT VOLUME 7.7 fl (7.5-11.1); MONO % 4.8 % (3.8-10.2); NEUT % 81.8 % (42.8-82.8); PLATELET COUNT 567 K/MM3 (134-434); RBC 3.22 M/mm3 (3.60-5.2); RDW 14.1 % (11.6-15.6); WHITE BLOOD COUNT 21.1 K/mm3 (4.0-10.0)
[2020-04-23 06:43] LABS: BLOOD UREA NITROGEN 24.4 mg/dL (7-18); CALCIUM 9.3 mg/dL (8.5-10.1); CREATININE 0.9 mg/dL (0.55-1.3); MAGNESIUM 1.7 mg/dL (1.8-2.4); PHOSPHOROUS 1.6 mg/dL (2.5-4.9); POTASSIUM 3.6 mmol/L (3.5-5.1)
[2020-04-23] MEDS: PANTOPRAZOLE SOD 40 MG SUSPENSION PACKET PO SCH (06:44)
[2020-04-23] MEDS ORDERED: MAGNESIUM SULF 50% (8.12 MEQ/2 ML-1 GM VIAL) IVPB ONE (07:52)
[2020-04-23] MEDS ORDERED: MAGNESIUM 1GM/D5W - 1 GM/100 ML IVPB IVPB ONE (08:00)
[2020-04-23] MEDS: MORPHINE SULFATE 2 MG/ML VIAL IVPUSH PRN (08:49)
[2020-04-23] MEDS: AMINO ACIDS/PROTEIN HYDROLYS 30 ML LIQUID.PKT PO SCH (09:22)
[2020-04-23] MEDS: MUPIROCIN 2% TOPICAL OINTMENT FOR DECOLONIZATION NS SCH ×2 (09:25→21:34)
[2020-04-23] MEDS: ZINC SULFATE 220 MG CAPSULE (FP) PO SCH (09:28)
[2020-04-23] MEDS: SENNOSIDES/DOCUSATE COMBO (SENNA PLUS) TABLET (UD) PO SCH ×2 (09:28→21:35)
[2020-04-23] MEDS: ASCORBIC ACID 500 MG TABLET (FP) PO SCH ×2 (09:28→21:35)
[2020-04-23] MEDS: POLYETHYLENE GLYCOL 3350 119 GM BTL PO SCH ×2 (09:28→21:34)
[2020-04-23] MEDS ORDERED: MORPHINE SULFATE 2 MG/ML VIAL IVPUSH ONE (10:00)
--- NOTE | 2020-04-23 10:26 | PN ---
Physical Exam: SUBJECTIVE: Patient seen and examined. Pt reports pain but is unable to communicate where. OBJECTIVE: Vital Signs Period Temp Pulse Resp BP Sys/Lepe Pulse Ox Last 24 Hr 97.6 F-99.7 F 67-98 16-20 118-148/42-95 92-100 GENERAL: The patient is awake, alert, and fully oriented, in mild distress. HEAD: Normal with no signs of trauma. EYES: PERRL, extraocular movements intact, conjunctiva clear. ENT: Ears normal, nares patent, moist mucous membranes. NECK: Trachea midline. LUNGS: Clear to auscultation bilaterally, no wheezes. HEART: Regular rate and rhythm, no murmur. ABDOMEN: Soft, nontender, nondistended, normoactive bowel sounds. EXTREMITIES: Warm, well-perfused, no edema. NEUROLOGICAL: Cranial nerves II through XII grossly intact. Normal speech. PSYCH: Normal mood, normal affect. SKIN: Warm, dry, normal turgor. Laboratory Results - last 24 hr 04/22/20 04/23/20 04/23/20 15:30 05:40 05:40 WBC 21.1 H RBC 3.22 L Hgb 8.6 L Hct 26.7 L MCV 83.1 MCH 26.7 MCHC 32.1 RDW 14.1 Plt Count 567 H MPV 7.7 Absolute Neuts (auto) 17.2 H Total Counted 100 Neutrophils % 81.8 Neutrophils % (Manual) 82.0 Lymphocytes % 10.6 Lymphocytes % (Manual) 10.0 Monocytes % 4.8 Monocytes % (Manual) 5 Eosinophils % 1.5 Eosinophils % (Manual) 3.0 D Basophils % 1.3 Nucleated RBC % 0 Sodium 137 Potassium 3.2 L Chloride 104 Carbon Dioxide 26 Anion Gap 7 L BUN 23.4 H Creatinine 0.9 Est GFR (CKD-EPI)AfAm 71.48 Est GFR (CKD-EPI)NonAf 61.67 Random Glucose 217 H Calcium 8.5 Phosphorus Magnesium Random Vancomycin 11.6 04/23/20 05:40 WBC RBC Hgb Hct MCV MCH MCHC RDW Plt Count MPV Absolute Neuts (auto) Total Counted Neutrophils % Neutrophils % (Manual) Lymphocytes % Lymphocytes % (Manual) Monocytes % Monocytes % (Manual) Eosinophils % Eosinophils % (Manual) Basophils % Nucleated RBC % Sodium 139 Potassium 3.6 Chloride 107 Carbon Dioxide 27 Anion Gap 5 L BUN 24.4 H Creatinine 0.9 Est GFR (CKD-EPI)AfAm 71.48 Est GFR (CKD-EPI)NonAf 61.67 Random Glucose 100 Calcium 9.3 Phosphorus 1.6 L Magnesium 1.7 L Random Vancomycin Active Medications Generic Name Dose Route Start Last Admin Trade Name Freq PRN Reason Stop Dose Admin Acetaminophen 650 mg 04/19/20 02:19 Tylenol - PO Q6H PRN Fever Amino Acids 30 ml 04/19/20 08:00 04/23/20 09:22 Prosource No Carb Liquid Pkt PO Not Given BID@0800,1730 JAYE Ascorbic Acid 500 mg 04/21/20 22:00 04/23/20 09:28 Vitamin C - PO Not Given BID JAYE Chlorhexidine Gluconate 1 applic 04/20/20 22:00 04/22/20 21:15 Hibiclens For Decolonization - TP 1 applic HS JAYE Administration Citalopram Hydrobromide 20 mg 04/19/20 22:00 04/22/20 21:09 Celexa - PO 20 mg HS JAYE Administration Amino Acids 1,000 mls @ 84 mls/hr 04/19/20 12:00 04/23/20 03:00 Clinimix - IV 84 mls/hr Q12H JAYE Administration Piperacillin Sod/Tazobactam 100 mls @ 200 mls/hr 04/19/20 21:00 04/23/20 09:22 Sod 4.5 gm/ Dextrose IVPB 200 mls/hr Q6H-IV JAYE Administration Protocol Fat Emulsion-Soy/MCT/[place]/Fish Oil 250 mls @ 20.833 mls/hr 04/22/20 22:00 04/22/20 21:46 Smoflipid 20% Iv Fat Emulsion IV 20.833 mls/hr DAILY@2200 JAYE Administration Mirtazapine 7.5 mg 04/19/20 22:00 04/22/20 21:10 Remeron - PO 7.5 mg HS JAYE Administration Morphine Sulfate 2 mg 04/19/20 12:02 04/23/20 08:49 Morphine Sulfate IVPUSH 2 mg Q4H PRN Administration PAIN LEVEL 6-10 Multivitamins/Minerals 10 ml 04/20/20 00:00 04/22/20 23:43 Infuvite Adult - IV Not Given Q24H JAYE Mupirocin 1 applic 04/20/20 22:00 04/23/20 09:25 Bactroban Ointment (For Decolonization) - NS 04/25/20 21:59 1 applic BID JAYE Administration Ondansetron HCl 4 mg 04/20/20 16:17 Zofran Injection IVPUSH Q6H PRN NAUSEA AND/OR VOMITING Pantoprazole Sodium 40 mg 04/22/20 01:11 04/23/20 06:44 Protonix Packets For Oral Suspension - PO Not Given ACBK JAYE Polyethylene Glycol 17 gm 04/22/20 10:30 04/23/20 09:28 Miralax (For Daily Use) - PO Not Given BID JAYE Senna/Docusate Sodium 1 tablet 04/22/20 10:00 04/23/20 09:28 Pericolace - PO Not Given BID JAYE Zinc Sulfate 220 mg 04/22/20 10:00 04/23/20 09:28 Orazinc - PO Not Given DAILY [facility] ASSESSMENT/PLAN: Pt is a 79 y/o female with HTN, dementia, depression, spinal stenosis, and neuropathy with recent extensive lumbar back surgery (removal of hardware L3-L5 including L4-L5 intervertebral cage, inspection of fusion mass, L3-S1 laminectomies, L5-S1 PLIF, L3-S1 posterior instrumented spinal fusion) on 04/09/2020, s/p I&D as well as wash out (04/18/20 and 04/20/20). #neuro -awake and oriented -left side weakness is not new symptom #pulm -stable -incentive spirometer -keep O2 >90 #cardio -hemodynamically stable -monitor vitals -consider adding home meds if pt becomes hypertensive #renal -hypomagnesemia -replete Mg #ID -wound cx VRE, e.coli; second cx pending GNR -resistance to vanc -Zosyn day 5 -ID following #MSK -scheduled for I&D and wash out today with Dr. Cuenca -morphine 4mg Q4H, increased dosage today #GI -needs increased nutrition given sepsis and low food intake recently -has been tolerating puree diet but not sufficient intake -NG tube to be placed during procedure today, start tube feeds -d/c TPN -dietary following -GI following -bowel regimen #psych -hx depression -mirtazipine -Celexa DVT Ppx SCDs GI Ppx Protonix FEN LR 100mL/hr monitor Mg NPO for procedure dispo ICU I&D with wash out anticipated at noon today spoke to son about NG tube and consider PEG if pt pulls out tube or nutrition is needed for extended period of time FULL CODE Visit type - Emergency Visit Emergency Visit: Yes ED Registration Date: 04/09/20 Care time: The patient presented to the Emergency Department on the above date and was hospitalized for further evaluation of their emergent condition. - New Patient This patient is new to me today: No - Critical Care Critical Care patient: Yes Total Critical Care Time (in minutes): 36 Critical Care Statement: The care of this patient involved high complexity decision making to prevent further life threatening deterioration of the patient's condition and/or to evaluate & treat vital organ system(s) failure or risk of failure. - Medication Review Med list reviewed for High Risk Meds patients 65 and older: Yes ATTENDING PHYSICIAN STATEMENT I saw and evaluated the patient. I reviewed the resident's note and discussed the case with the resident. I agree with the resident's findings and plan as documented. SUBJECTIVE: OBJECTIVE: ASSESSMENT AND PLAN:
--- NOTE | 2020-04-23 11:22 | PN ---
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, RN OCCUPATIONAL HEALTH - Note 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: Selected Entries 04/20/20 04/20/20 04/20/20 06:00 08:56 10:00 Breakfast Diet Tolerated Lunch NPO NPO Supper 0 Temperature 04/20/20 04/20/20 04/20/20 16:17 18:00 23:00 Breakfast Diet Tolerated Lunch NPO Supper 25% 25% Temperature 04/21/20 04/21/20 04/21/20 06:00 12:33 23:00 Breakfast 75% Diet Tolerated Fair Poor Lunch 50% Supper 25% 25% Temperature 04/22/20 04/23/20 04/23/20 15:00 00:00 02:00 Breakfast 25% Diet Tolerated Refused Lunch 25% Supper Temperature 97.9 F 97.7 F 04/23/20 04/23/20 04:00 06:00 Breakfast Diet Tolerated Lunch Supper Temperature 97.8 F 97.6 F Laboratory Tests 04/19/20 04/20/20 04/21/20 07:20 05:40 07:00 WBC 20.4 H 12.3 H 14.0 H 04/22/20 04/23/20 06:19 05:40 WBC 19.1 H 21.1 H Pt received puree/thin liquids, meds crushed/given in applesauce NPO today for procedure Per surgeon-This patient is in urgent need of nutrition. She is in a severe caloric and nitrogen deficit, is severely malnourished, and simply will not heal her wounds not mount a response to fight her spine infection unless she receives nutritional support immediately. -NG tube placed in the OR. Recommend elevating head of bed 45-60 degrees to prevent aspiration event and beginning NG tube feeds TODAY. Pt. needs high calorie dietary support with amino acid/protein boost. PEG being considered for insufficient PO acceptance. Pt is a full code Consider palliative care consult regarding pt's wishes Encourage Ensure, magic cup,ensure pudding Calorie count RD f/u
--- NOTE | 2020-04-23 11:42 | PN ---
Teaching Attending Note Name of Resident: Corin Nick ATTENDING PHYSICIAN STATEMENT I saw and evaluated the patient. I reviewed the resident's note and discussed the case with the resident. I agree with the resident's findings and plan as documented. SUBJECTIVE: Pt seen and examined in the ICU. States pain not controlled. No fevers recorded. OBJECTIVE: Vital Signs Period Temp Pulse Resp BP Sys/Lepe Pulse Ox Last 24 Hr 97.6 F-99.7 F 67-98 16-20 118-148/42-95 92-100 Intake & Output 04/20/20 04/21/20 04/22/20 04/23/20 23:59 23:59 23:59 23:59 Intake Total 5224 3285 3144 1454 Output Total 3150 2650 3800 1900 Balance 8 920 -656 -986 Weight 63.866 kg 63.503 kg 66.5 kg 67.7 kg Gen: NAD at rest Heart: RRR Lung: decreased breath sounds at the bases Abd: soft, nontender Ext: no edema CBC, BMP 04/23/20 05:40 04/23/20 05:40 Active Medications Acetaminophen (Tylenol -) 650 mg PO Q6H PRN PRN Reason: Fever Amino Acids (Prosource No Carb Liquid Pkt) 30 ml PO BID@0800,1730 [facility] Last Admin: 04/23/20 09:22 Dose: Not Given Documented by: Ascorbic Acid (Vitamin C -) 500 mg PO BID [facility] Last Admin: 04/23/20 09:28 Dose: Not Given Documented by: Chlorhexidine Gluconate (Hibiclens For Decolonization -) 1 applic TP [facility] Last Admin: 04/22/20 21:15 Dose: 1 applic Documented by: Citalopram Hydrobromide (Celexa -) 20 mg PO HS [facility] Last Admin: 04/22/20 21:09 Dose: 20 mg Documented by: Piperacillin Sod/Tazobactam (Sod 4.5 gm/ Dextrose) 100 mls @ 200 mls/hr IVPB Q6H-IV JAYE; Protocol Last Admin: 04/23/20 09:22 Dose: 200 mls/hr Documented by: Lactated Ringer's (Lactated Ringers Solution) 1,000 ml in 1,000 mls @ 100 mls/hr IV ASDIR JAYE Mirtazapine (Remeron -) 7.5 mg PO HS [facility] Last Admin: 04/22/20 21:10 Dose: 7.5 mg Documented by: Morphine Sulfate (Morphine Sulfate) 4 mg IVPUSH Q4H PRN PRN Reason: PAIN LEVEL 6-10 Multivitamins/Minerals (Infuvite Adult -) 10 ml IV Q24H [facility] Last Admin: 04/22/20 23:43 Dose: Not Given Documented by: Mupirocin (Bactroban Ointment (For Decolonization) -) 1 applic NS BID [facility] Stop: 04/25/20 21:59 Last Admin: 04/23/20 09:25 Dose: 1 applic Documented by: Ondansetron HCl (Zofran Injection) 4 mg IVPUSH Q6H PRN PRN Reason: NAUSEA AND/OR VOMITING Pantoprazole Sodium (Protonix Packets For Oral Suspension -) 40 mg PO ACBK [facility] Last Admin: 04/23/20 06:44 Dose: Not Given Documented by: Polyethylene Glycol (Miralax (For Daily Use) -) 17 gm PO BID [facility] Last Admin: 04/23/20 09:28 Dose: Not Given Documented by: Senna/Docusate Sodium (Pericolace -) 1 tablet PO BID [facility] Last Admin: 04/23/20 09:28 Dose: Not Given Documented by: Zinc Sulfate (Orazinc -) 220 mg PO DAILY [facility] Last Admin: 04/23/20 09:28 Dose: Not Given Documented by: ASSESSMENT AND PLAN: Lumbar Spinal Stenosis s/p Removal of L3-L5 hardware, including L4-L5 intervertebral cage, L3-S1 laminectomy, L5-S1 PLIF, L3-S1 posterior instrumented spinal fusion Wound Infection E Coli Bacteremia s/p I&D of the lumbar spine and wash out s/p Wash out and VAC placement Hypertension Dementia Depression Anemia - continue antibiotics - for OR today - pain control - incentive spirometry - rehab/PT - DVT prophylaxis - disposition per surgery
[2020-04-23] MEDS: LACTATED RINGERS SOLUTION 1,000 ML/1,000 ML INFUS.BAG IV SCH (12:00)
[2020-04-23] MEDS ORDERED: ROCURONIUM BROMIDE 50 MG/5 ML SYRINGE ONE (12:17)
[2020-04-23] MEDS ORDERED: PROPOFOL 20 ML ONE (12:17)
[2020-04-23] MEDS ORDERED: fentaNYL CITRATE 250 MCG/5 ML VIAL ONE (12:17)
[2020-04-23] MEDS ORDERED: LIDOCAINE HCL/PF 2% SDV 5ML VIAL ONE (12:17)
[2020-04-23] MEDS ORDERED: NEOSTIGMINE METHYLSULFATE 0.5 MG/ML - 10 ML MDV ONE (13:21)
[2020-04-23] MEDS ORDERED: GLYCOPYRROLATE 0.2 MG/1 ML VIAL ONE (13:21)
--- NOTE | 2020-04-23 14:17 | PN ---
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 (short form) - Note 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: 79F s/p removal of hardware L3-L5 (including L4-L5 intervertebral cage), inspection of fusion mass, L3-S1 laminectomies, L5-S1 PLIF, L3-S1 posterior instrumented spinal fusion (04/09/2020) s/p I&D lumbar spine with betadine dressing wound packing (04/18/2020, & I&D lumbar spine w/application of woundvac (04/20/2020) now s/p I&D lumbar spine with application of woundvac POD #0. (+) Excellent proliferation of granulation tissue over dura, deep, & superficial tissues. (+) Foul smelling. No sub-fascial nor suprafascial purulence. 3 x wound cultures sent to lab. Valsalva maneuver to 40mmHg revealed no CSF leak nor uncontrollable bleeding. Wound irrigated with 3L NS & debrided with betadine sponge. 3 minute wound soak with diluted betadine solution. 2nd Valsalva maneuver to 40mmHg again revealed no CSF leak nor uncontrollable bleeding. WoundVac re-applied Wound approximated with Lautenbach sutures. This patient is in urgent need of nutrition. She is in a severe caloric and nitrogen deficit, is severely malnourished, and simply will not heal her wounds not mount a response to fight her spine infection unless she receives nutritional support immediately. -NG tube placed in the OR. Recommend elevating head of bed 45-60 degrees to prevent aspiration event and beginning NG tube feeds TODAY. Pt. needs high calorie dietary support with amino acid/protein boost. -Admit to ICU post-op. -Pain medication: per anaesthesia team; NO NSAID's. -f/u NEW OR wound cultures x 3 (aerobic, anaerobic, AFB, fungal). -Maintain avila catheter until patient comfortably ambulating. -DVT PPx: -Mechanical only: LITA's, SCD's. -f/u AM labs: CBC, BMP; monitor renal function closely given age & and Vancomycin infusions. -Incentive spirometry. -PT/OT/Rehab, OOB. -WBAT B/L LE. -No heavy lifting (>5 lbs), bending or twisting x 6 months post op. -B/L UE & LE NV checks. -Care per ICU, ID, GI, and primary medical hospitalist teams. -Discharge planning: nutritional optimization; plan to repeat I&D with application of wound vac VS delayed primary closure on Wednesday 04/25; NPO w/IVF Thursday at midnight). -Will follow. Marko Cuenca MD (Orthopaedic Surgery).
--- NOTE | 2020-04-23 14:23 | OP ---
Operative Note - Note: Operative Date: 04/23/20 Pre-Operative Diagnosis: Lumbar spine wound infection Operation: I&D Lumbar spine. Exchange of woundvac dressing Findings: Wound Dimensions: Length: 21cm Width: 6cm Depth: 7cm Post-Operative Diagnosis: Same as Pre-op Surgeon: Marko Cuenca Anesthesiologist/ORIENTATION & MOBILITY SPECIALIST: April Woods Anesthesia: General Specimens Removed: 3 x deep lumbar spine wound culture sticks. 1 x paraspinal muscle necrotic tissue specimen Estimated Blood Loss (mls): 0 Drains & Tubes with Location: WoundVac Fluid Volume Replaced (mls): 500 (Crystalloid) Operative Report Dictated: Yes
--- NOTE | 2020-04-23 14:52 | PN ---
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, Physician History of Present Illness: stable baseline dementia no new issues - Current Medication List Current Medications: Active Medications Acetaminophen (Tylenol -) 650 mg PO Q6H PRN PRN Reason: Fever Ascorbic Acid (Vitamin C -) 500 mg PO BID [facility] Last Admin: 04/23/20 09:28 Dose: Not Given Documented by: Chlorhexidine Gluconate (Hibiclens For Decolonization -) 1 applic TP [facility] Last Admin: 04/22/20 21:15 Dose: 1 applic Documented by: Citalopram Hydrobromide (Celexa -) 20 mg PO [facility] Last Admin: 04/22/20 21:09 Dose: 20 mg Documented by: Piperacillin Sod/Tazobactam (Sod 4.5 gm/ Dextrose) 100 mls @ 200 mls/hr IVPB Q6H-IV [facility]; Protocol Last Admin: 04/23/20 09:22 Dose: 200 mls/hr Documented by: Lactated Ringer's (Lactated Ringers Solution) 1,000 ml in 1,000 mls @ 100 mls/hr IV ASDIR [facility] Last Admin: 04/23/20 12:00 Dose: 100 mls/hr Documented by: Daptomycin 550 mg/ Sodium (Chloride) 50 mls @ 50 mls/hr IVPB DAILY [facility]; Protocol Mirtazapine (Remeron -) 7.5 mg PO [facility] Last Admin: 04/22/20 21:10 Dose: 7.5 mg Documented by: Morphine Sulfate (Morphine Sulfate) 4 mg IVPUSH Q4H PRN PRN Reason: PAIN LEVEL 6-10 Multivitamins/Minerals (Certavite-Antioxidant Liquid) 15 ml PO DAILY [facility] Mupirocin (Bactroban Ointment (For Decolonization) -) 1 applic NS BID [facility] Stop: 04/25/20 21:59 Last Admin: 04/23/20 09:25 Dose: 1 applic Documented by: Ondansetron HCl (Zofran Injection) 4 mg IVPUSH Q6H PRN PRN Reason: NAUSEA AND/OR VOMITING Pantoprazole Sodium (Protonix Packets For Oral Suspension -) 40 mg PO ACBK [facility] Last Admin: 04/23/20 06:44 Dose: Not Given Documented by: Polyethylene Glycol (Miralax (For Daily Use) -) 17 gm PO BID [facility] Last Admin: 04/23/20 09:28 Dose: Not Given Documented by: Senna/Docusate Sodium (Pericolace -) 1 tablet PO BID [facility] Last Admin: 04/23/20 09:28 Dose: Not Given Documented by: Zinc Sulfate (Orazinc -) 220 mg PO DAILY [facility] Stop: 05/06/20 09:59 Last Admin: 04/23/20 09:28 Dose: Not Given Documented by: - Objective Vital Signs: Vital Signs Temperature 97.9 F 04/23/20 12:00 Pulse Rate 65 04/23/20 12:00 Respiratory Rate 18 04/23/20 12:00 Blood Pressure 151/61 04/23/20 12:00 O2 Sat by Pulse Oximetry (%) 100 04/23/20 12:00 Constitutional: Yes: Calm, Mild Distress Cardiovascular: Yes: S1, S2 Respiratory: Yes: Regular, CTA Bilaterally Gastrointestinal: Yes: Normal Bowel Sounds, Soft Musculoskeletal: Yes: Back Pain, Other Extremities: Yes: WNL Wound/Incision: Yes: Dressing Dry and Intact Neurological: Yes: Alert, Other Labs: CBC, BMP 04/23/20 05:40 04/23/20 05:40 Assessment/Plan Problem List - Problems (1) Severe sepsis Code(s): A41.9 - SEPSIS, UNSPECIFIED ORGANISM; R65.20 - SEVERE SEPSIS WITHOUT SEPTIC SHOCK (2) Bacteremia due to Gram-negative bacteria Code(s): R78.81 - BACTEREMIA (3) Status post spinal surgery Code(s): Z98.890 - OTHER SPECIFIED POSTPROCEDURAL STATES (4) Toxic metabolic encephalopathy Code(s): G92 - TOXIC ENCEPHALOPATHY (5) Urinary tract infection Code(s): N39.0 - URINARY TRACT INFECTION, SITE NOT SPECIFIED Qualifiers: Urinary tract infection type: site unspecified Hematuria presence: without hematuria Qualified Code(s): N39.0 - Urinary tract infection, site not specified Assessment/Plan 79 y.o. female with PMH of dementia, HTN, depression, lumbar stenosis s/p laminectomy, neuropathy who underwent removal of L3-L5 hardware, L3-S1 laminectomies, L5-S1 PLIF/L3-S1 PSIF on 04/09/20 and noted to develop fever up to 101.8F and increase in wbc to 16.8K along with lethargy and mild hypotension Severe Sepsis Gram negative/E. coli Bacteremia Pseudomonas UTI s/p lumbar wound I+D, s/p washout/wound vac placement plan continue iv abx close watch monitor wbc as per surgery
[2020-04-23] MEDS: DAPTOMYCIN 500 MG in SODIUM CHLORIDE 50 ML IVPB SCH (16:44)
[2020-04-23] MEDS: MULTIVIT-MINERALS ORAL LIQUID PO SCH (18:15)
[2020-04-23] MEDS: CHLORHEXIDINE GLUCONATE 4% CLEANSER FOR DECOLONIZATION TP SCH (21:33)
[2020-04-23] MEDS: CITALOPRAM HYDROBROMIDE 20 MG TABLET PO SCH (21:34)
[2020-04-23] MEDS: MIRTAZAPINE 15 MG TABLET (FP) PO SCH (21:35)
[2020-04-24] MEDS ORDERED: PIPERACILLIN/TAZOBACTAM 4.5 GM VIAL IVPB ONE ×4 (01:02→21:30)
[2020-04-24] MEDS ORDERED: DEXTROSE 5%-WATER 100 ML IVPB ONE ×4 (01:02→21:31)
[2020-04-24] MEDS: PIPERACILLIN/TAZOB 4.5 GM 4.5 GM in DEXTROSE 5%-WATER 100 ML IVPB SCH ×4 (02:08→21:55)
[2020-04-24 05:54] LABS: BASO % 0.4 % (0-2.0); EOS % 1.2 % (0-4.5); HEMATOCRIT 24.5 % (32.4-45.2); HEMOGLOBIN 7.8 GM/dL (10.7-15.3); LYMPH % 7.5 % (8-40); MCH 26.9 pg (25.7-33.7); MEAN CELL VOLUME 83.9 fl (80-96); MEAN PLT VOLUME 7.7 fl (7.5-11.1); MONO % 4.9 % (3.8-10.2); PLATELET COUNT 490 K/MM3 (134-434); RBC 2.92 M/mm3 (3.60-5.2); RDW 14.2 % (11.6-15.6); WHITE BLOOD COUNT 21.9 K/mm3 (4.0-10.0)
[2020-04-24] MEDS: PANTOPRAZOLE SOD 40 MG SUSPENSION PACKET PO SCH (06:01)
[2020-04-24 06:31] LABS: ALBUMIN 1.7 g/dl (3.4-5.0); BILIRUBIN,TOTAL 0.3 mg/dL (0.2-1); BLOOD UREA NITROGEN 20.3 mg/dL (7-18); CALCIUM 8.9 mg/dL (8.5-10.1); CREATININE 0.9 mg/dL (0.55-1.3); MAGNESIUM 1.9 mg/dL (1.8-2.4); POTASSIUM 3.6 mmol/L (3.5-5.1); TOT PROT 5.7 g/dl (6.4-8.2)
[2020-04-24 09:03] LABS: ANISOCYTOSIS 0; MACROCYTOSIS 0; PLATELET ESTIMATE INCREASED
--- NOTE | 2020-04-24 10:06 | PN ---
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 (short form) - Note 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: Anesthesia Post op Pt seen and examined S:Sleeping comfortably O: Vital Signs Temperature 98.5 F 04/24/20 06:00 Pulse Rate 80 04/24/20 06:00 Respiratory Rate 23 H 04/24/20 06:00 Blood Pressure 133/50 L 04/24/20 06:00 O2 Sat by Pulse Oximetry (%) 98 04/24/20 06:00 CBC, BMP 04/24/20 05:40 04/24/20 05:40 A/P Current Active Problems At risk for dehydration due to poor fluid intake (Acute) Bacteremia due to Gram-negative bacteria (Acute) DVT prophylaxis (Acute) Dementia (Acute) Depression (Acute) Hypertension (Acute) Prophylactic measure (Acute) Radiculopathy of lumbosacral region (Acute) Severe sepsis (Acute) Severe sepsis (Acute) Status post spinal surgery (Acute) Toxic metabolic encephalopathy (Acute) s/p I & D of back wound Doing well post op Continue current care. Isaac Merida MD
--- NOTE | 2020-04-24 10:59 | PN ---
Teaching Attending Note Name of Resident: Corin Nick ATTENDING PHYSICIAN STATEMENT I saw and evaluated the patient. I reviewed the resident's note and discussed the case with the resident. I agree with the resident's findings and plan as documented. SUBJECTIVE: Pt seen and examined in the ICU. s/p I&D and wound vac exchange. States pain better controlled today. No fevers recorded. OBJECTIVE: Vital Signs Period Temp Pulse Resp BP Sys/Lepe Pulse Ox Last 24 Hr 95.6 F-99.8 F 64-80 14-23 113-175/42-79 98-100 Intake & Output 04/21/20 04/22/20 04/23/20 04/24/20 23:59 23:59 23:59 23:59 Intake Total 3285 3144 3844 1440 Output Total 2650 3800 2400 750 Balance 635 -656 1444 690 Weight 63.503 kg 66.5 kg 67.7 kg 71.2 kg Gen: NAD at rest Heart: RRR Lung: decreased breath sounds at the bases Abd: soft, nontender Ext: no edema CBC, BMP 04/24/20 05:40 04/24/20 05:40 Active Medications Acetaminophen (Tylenol -) 650 mg PO Q6H PRN PRN Reason: Fever Ascorbic Acid (Vitamin C -) 500 mg PO BID [facility] Last Admin: 04/23/20 21:35 Dose: 500 mg Documented by: Chlorhexidine Gluconate (Hibiclens For Decolonization -) 1 applic TP [facility] Last Admin: 04/23/20 21:33 Dose: 1 applic Documented by: Citalopram Hydrobromide (Celexa -) 20 mg PO [facility] Last Admin: 04/23/20 21:34 Dose: 20 mg Documented by: Piperacillin Sod/Tazobactam (Sod 4.5 gm/ Dextrose) 100 mls @ 200 mls/hr IVPB Q6H-IV [facility]; Protocol Last Admin: 04/24/20 02:08 Dose: 200 mls/hr Documented by: Lactated Ringer's (Lactated Ringers Solution) 1,000 ml in 1,000 mls @ 100 mls/hr IV ASDIR [facility] Last Admin: 04/23/20 12:00 Dose: 100 mls/hr Documented by: Daptomycin 500 mg/ Sodium (Chloride) 50 mls @ 50 mls/hr IVPB Q24H [facility]; Protocol Last Admin: 04/23/20 16:44 Dose: 50 mls/hr Documented by: Mirtazapine (Remeron -) 7.5 mg PO HS [facility] Last Admin: 04/23/20 21:35 Dose: 7.5 mg Documented by: Morphine Sulfate (Morphine Sulfate) 4 mg IVPUSH Q4H PRN PRN Reason: PAIN LEVEL 6-10 Multivitamins/Minerals (Certavite-Antioxidant Liquid) 15 ml PO DAILY [facility] Last Admin: 04/23/20 18:15 Dose: 15 ml Documented by: Mupirocin (Bactroban Ointment (For Decolonization) -) 1 applic NS BID [facility] Stop: 04/25/20 21:59 Last Admin: 04/23/20 21:34 Dose: 1 applic Documented by: Ondansetron HCl (Zofran Injection) 4 mg IVPUSH Q6H PRN PRN Reason: NAUSEA AND/OR VOMITING Pantoprazole Sodium (Protonix Packets For Oral Suspension -) 40 mg PO ACBK [facility] Last Admin: 04/24/20 06:01 Dose: 40 mg Documented by: Polyethylene Glycol (Miralax (For Daily Use) -) 17 gm PO BID [facility] Last Admin: 04/23/20 21:34 Dose: 17 gm Documented by: Senna/Docusate Sodium (Pericolace -) 1 tablet PO BID [facility] Last Admin: 04/23/20 21:35 Dose: 1 tablet Documented by: Zinc Sulfate (Orazinc -) 220 mg PO DAILY [facility] Stop: 05/06/20 09:59 Last Admin: 04/23/20 09:28 Dose: Not Given Documented by: ASSESSMENT AND PLAN: Lumbar Spinal Stenosis s/p Removal of L3-L5 hardware, including L4-L5 intervertebral cage, L3-S1 lami nectomy, L5-S1 PLIF, L3-S1 posterior instrumented spinal fusion 04/09/20 Wound Infection E Coli Bacteremia s/p I&D of the lumbar spine 04/18/20 s/p Wash out and VAC placement 04/20/20 s/p I&D/Wound vac exchange 04/23/20 Hypertension Dementia Depression Anemia - continue antibiotics - f/u cultures - pain control - incentive spirometry - PO as tolerated - enteral feeds - rehab/PT - DVT prophylaxis - disposition per surgery
[2020-04-24] MEDS: ZINC SULFATE 220 MG CAPSULE (FP) PO SCH (11:03)
[2020-04-24] MEDS: POLYETHYLENE GLYCOL 3350 119 GM BTL PO SCH ×2 (11:03→22:30)
[2020-04-24] MEDS: MUPIROCIN 2% TOPICAL OINTMENT FOR DECOLONIZATION NS SCH ×2 (11:03→22:30)
[2020-04-24] MEDS: ASCORBIC ACID 500 MG TABLET (FP) PO SCH ×2 (11:04→22:30)
[2020-04-24] MEDS: SENNOSIDES/DOCUSATE COMBO (SENNA PLUS) TABLET (UD) PO SCH ×2 (11:04→22:30)
--- NOTE | 2020-04-24 11:58 | PN ---
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, RELIGIOUS EDUCATION DIRECTOR - Note 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: Selected Entries 04/24/20 04/24/20 04/24/20 00:00 02:00 04:00 Breakfast Temperature 98.2 F 98.9 F 99.8 F H Pulse Rate 66 72 69 Blood Pressure 142/59 L 126/42 L 113/46 L 04/24/20 04/24/20 04/24/20 06:00 08:00 10:00 Breakfast NPO Temperature 98.5 F 98.5 F Pulse Rate 80 80 80 Blood Pressure 133/50 L 143/56 L 135/55 L Laboratory Tests 04/20/20 04/21/20 04/22/20 05:40 07:00 06:19 WBC 12.3 H 14.0 H 19.1 H 04/23/20 04/24/20 05:40 05:40 WBC 21.1 H 21.9 H Seen bedside, pt keeps eyes closed.Responded readily to questions, verbal, much more interactive than Thursday. Left UE seems flaccid to me, seems increased as compared to 04/20. Discussed with nursing/ medical team. NGT in place. Assessed swallowing function with good acceptance of 4 tsp of yogurt, grimace, reported back, hip and throat pain (ngt) to me. PEG being considered by staff for nutritional needs and previously poor po intake. Pt is a full code. IMP:May benefit from PEG to supplement PO intake. Pt's wishes? REC: consider trials of Dys puree consistency. Start with nutritionally dense puree eg ensure pudding and magic cup. Monitor po tolerance and fror sufficient acceptance, grimace/pain response from NGT
[2020-04-24] MEDS: morphine SULFATE 4 MG/ML VIAL IVPUSH PRN (12:06)
[2020-04-24] MEDS: MULTIVIT-MINERALS ORAL LIQUID PO SCH (12:14)
--- NOTE | 2020-04-24 13:19 | PN ---
Physical Exam: SUBJECTIVE: Patient seen and examined. She reports NG tube is uncomfortable. She is able to tolerate small amounts of food but it is uncomfortable to swallow. OBJECTIVE: Vital Signs Period Temp Pulse Resp BP Sys/Lepe Pulse Ox Last 24 Hr 95.6 F-99.8 F 64-80 14-23 113-175/42-79 98-100 GENERAL: The patient is awake, alert, in no acute distress. HEAD: Normal with no signs of trauma. EYES: PERRL, extraocular movements intact, sclera anicteric, conjunctiva clear. No ptosis. ENT: Ears normal, nares patent, oropharynx clear without exudates, dry oral mucous membranes. NG tube in place with feeds running. NECK: Trachea midline, full range of motion, supple. LUNGS: Clear to auscultation anteriorly, no accessory muscle use. HEART: Regular rate and rhythm, no murmur appreciated. ABDOMEN: Soft, nontender, nondistended, normoactive bowel sounds. EXTREMITIES: Warm, well-perfused, no edema. Generalized weakness L > R. NEUROLOGICAL: Cranial nerves II through XII grossly intact. Normal speech. PSYCH: Normal mood, normal affect. SKIN: Warm, dry, normal turgor. Laboratory Results - last 24 hr 04/20/20 04/24/20 04/24/20 05:40 05:40 05:40 WBC 21.9 H RBC 2.92 L Hgb 7.8 L Hct 24.5 L MCV 83.9 MCH 26.9 MCHC 32.0 RDW 14.2 Plt Count 490 H MPV 7.7 Absolute Neuts (auto) 18.9 H Neutrophils % 86.0 H Neutrophils % (Manual) 77.7 Band Neutrophils % 0.0 Lymphocytes % 7.5 L D Lymphocytes % (Manual) 13.6 D Monocytes % 4.9 Monocytes % (Manual) 3 L Eosinophils % 1.2 Eosinophils % (Manual) 2.9 Basophils % 0.4 Basophils % (Manual) 0.0 Myelocytes % (Man) 3 H D Promyelocytes % (Man) 0 Blast Cells % (Manual) 0 Nucleated RBC % 0 Metamyelocytes 0 Hypochromia 1+ Platelet Estimate Increased Polychromasia 1+ Poikilocytosis 0 Anisocytosis 0 Microcytosis 0 Macrocytosis 0 Sodium 142 Potassium 3.6 Chloride 110 H Carbon Dioxide 23 Anion Gap 8 BUN 20.3 H Creatinine 0.9 Est GFR (CKD-EPI)AfAm 71.48 Est GFR (CKD-EPI)NonAf 61.67 Random Glucose 121 H Calcium 8.9 Phosphorus 3.0 Magnesium 1.9 Total Bilirubin 0.3 AST 32 ALT 27 Alkaline Phosphatase 92 Total Protein 5.7 L Total Protein (PEP) 5.7 L Albumin 1.7 L Albumin (PEP) 2.2 L Globulin 3.5 Albumin/Globulin Ratio 0.6 L Beta Globulins 0.7 IAN M-Yasmani Not observed Active Medications Generic Name Dose Route Start Last Admin Trade Name Freq PRN Reason Stop Dose Admin Acetaminophen 650 mg 04/19/20 02:19 Tylenol - PO Q6H PRN Fever Ascorbic Acid 500 mg 04/21/20 22:00 04/24/20 11:04 Vitamin C - PO 500 mg BID JAYE Administration Chlorhexidine Gluconate 1 applic 04/20/20 22:00 04/23/20 21:33 Hibiclens For Decolonization - TP 1 applic HS JAYE Administration Citalopram Hydrobromide 20 mg 04/19/20 22:00 04/23/20 21:34 Celexa - PO 20 mg HS JAYE Administration Piperacillin Sod/Tazobactam 100 mls @ 200 mls/hr 04/19/20 21:00 04/24/20 10:59 Sod 4.5 gm/ Dextrose IVPB 200 mls/hr Q6H-IV JAYE Administration Protocol Lactated Ringer's 1,000 ml in 1,000 mls @ 100 mls/hr 04/23/20 11:15 04/23/20 12:00 Lactated Ringers Solution IV 100 mls/hr ASDIR JAYE Administration Daptomycin 500 mg/ Sodium 50 mls @ 50 mls/hr 04/23/20 16:00 04/23/20 16:44 Chloride IVPB 50 mls/hr Q24H JAYE Administration Protocol Mirtazapine 7.5 mg 04/19/20 22:00 04/23/20 21:35 Remeron - PO 7.5 mg HS JAYE Administration Morphine Sulfate 4 mg 04/23/20 11:02 04/24/20 12:06 Morphine Sulfate IVPUSH 4 mg Q4H PRN Administration PAIN LEVEL 6-10 Multivitamins/Minerals 15 ml 04/23/20 12:45 04/24/20 12:14 Certavite-Antioxidant Liquid PO 15 ml DAILY JAYE Administration Mupirocin 1 applic 04/20/20 22:00 04/24/20 11:03 Bactroban Ointment (For Decolonization) - NS 04/25/20 21:59 1 applic BID JAYE Administration Ondansetron HCl 4 mg 04/20/20 16:17 Zofran Injection IVPUSH Q6H PRN NAUSEA AND/OR VOMITING Pantoprazole Sodium 40 mg 04/22/20 01:11 04/24/20 06:01 Protonix Packets For Oral Suspension - PO 40 mg ACBK JAYE Administration Polyethylene Glycol 17 gm 04/22/20 10:30 04/24/20 11:03 Miralax (For Daily Use) - PO 17 gm BID JAYE Administration Senna/Docusate Sodium 1 tablet 04/22/20 10:00 04/24/20 11:04 Pericolace - PO 1 tablet BID JAYE Administration Zinc Sulfate 220 mg 04/22/20 10:00 04/24/20 11:03 Orazinc - PO 05/06/20 09:59 220 mg DAILY JAYE Administration ASSESSMENT/PLAN: Pt is a 79 y/o female with HTN, dementia, depression, spinal stenosis, and neuropathy with recent extensive lumbar back surgery (removal of hardware L3-L5 including L4-L5 intervertebral cage, inspection of fusion mass, L3-S1 laminectomies, L5-S1 PLIF, L3-S1 posterior instrumented spinal fusion) on 04/09/2020, s/p I&Ds as well as wash outs (04/18/20, 04/20/20, 04/23/20). #neuro -awake and oriented -left side weakness is not new symptom, pt is right-handed, has been bed-bound for 8 years, and has become increasingly deconditioned during hospital course #pulm -stable -incentive spirometer -keep O2 >90 #cardio -hemodynamically stable -monitor vitals -consider adding home meds if pt becomes hypertensive #renal -hypomagnesemia, resolved #ID -wound cx VRE, e.coli from 04/18 and 04/20; third cx pending -Zosyn day 6 -daptomycin day 2 -ID following #MSK -anticipate another wash out tomorrow -morphine 4mg Q4H #GI -needs increased nutrition given sepsis and low food intake recently -NG tube in place with feeds on -encourage PO intake -dietary following -GI consulted -bowel regimen -PEG will need to be considered for long-term nutrition #psych -hx depression -mirtazipine -Celexa DVT Ppx SCDs GI Ppx Protonix FEN LR 100mL/hr monitor Mg Pivot dispo ICU I&D with wash out anticipated tomorrow FULL CODE Visit type - Emergency Visit Emergency Visit: Yes ED Registration Date: 04/09/20 Care time: The patient presented to the Emergency Department on the above date and was hospitalized for further evaluation of their emergent condition. - New Patient This patient is new to me today: No - Critical Care Critical Care patient: Yes Total Critical Care Time (in minutes): 36 Critical Care Statement: The care of this patient involved high complexity decision making to prevent further life threatening deterioration of the patient's condition and/or to evaluate & treat vital organ system(s) failure or risk of failure. - Medication Review Med list reviewed for High Risk Meds patients 65 and older: Yes ATTENDING PHYSICIAN STATEMENT I saw and evaluated the patient. I reviewed the resident's note and discussed the case with the resident. I agree with the resident's findings and plan as documented. SUBJECTIVE: OBJECTIVE: ASSESSMENT AND PLAN:
--- NOTE | 2020-04-24 14:07 | PN ---
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, Physician History of Present Illness: continues to have elevated wbc s/p I&D and wound vac exchange. States pain better controlled today. No fevers recorded. - Current Medication List Current Medications: Active Medications Acetaminophen (Tylenol -) 650 mg PO Q6H PRN PRN Reason: Fever Ascorbic Acid (Vitamin C -) 500 mg PO BID [facility] Last Admin: 04/24/20 11:04 Dose: 500 mg Documented by: Chlorhexidine Gluconate (Hibiclens For Decolonization -) 1 applic TP [facility] Last Admin: 04/23/20 21:33 Dose: 1 applic Documented by: Citalopram Hydrobromide (Celexa -) 20 mg PO [facility] Last Admin: 04/23/20 21:34 Dose: 20 mg Documented by: Piperacillin Sod/Tazobactam (Sod 4.5 gm/ Dextrose) 100 mls @ 200 mls/hr IVPB Q6H-IV JAYE; Protocol Last Admin: 04/24/20 10:59 Dose: 200 mls/hr Documented by: Lactated Ringer's (Lactated Ringers Solution) 1,000 ml in 1,000 mls @ 100 mls/hr IV ASDIR [facility] Last Admin: 04/23/20 12:00 Dose: 100 mls/hr Documented by: Daptomycin 500 mg/ Sodium (Chloride) 50 mls @ 50 mls/hr IVPB Q24H [facility]; Protocol Last Admin: 04/23/20 16:44 Dose: 50 mls/hr Documented by: Mirtazapine (Remeron -) 7.5 mg PO [facility] Last Admin: 04/23/20 21:35 Dose: 7.5 mg Documented by: Morphine Sulfate (Morphine Sulfate) 4 mg IVPUSH Q4H PRN PRN Reason: PAIN LEVEL 6-10 Last Admin: 04/24/20 12:06 Dose: 4 mg Documented by: Multivitamins/Minerals (Certavite-Antioxidant Liquid) 15 ml PO DAILY [facility] Last Admin: 04/24/20 12:14 Dose: 15 ml Documented by: Mupirocin (Bactroban Ointment (For Decolonization) -) 1 applic NS BID [facility] Stop: 04/25/20 21:59 Last Admin: 04/24/20 11:03 Dose: 1 applic Documented by: Ondansetron HCl (Zofran Injection) 4 mg IVPUSH Q6H PRN PRN Reason: NAUSEA AND/OR VOMITING Pantoprazole Sodium (Protonix Packets For Oral Suspension -) 40 mg PO ACBK [facility] Last Admin: 04/24/20 06:01 Dose: 40 mg Documented by: Polyethylene Glycol (Miralax (For Daily Use) -) 17 gm PO BID [facility] Last Admin: 04/24/20 11:03 Dose: 17 gm Documented by: Senna/Docusate Sodium (Pericolace -) 1 tablet PO BID [facility] Last Admin: 04/24/20 11:04 Dose: 1 tablet Documented by: Zinc Sulfate (Orazinc -) 220 mg PO DAILY [facility] Stop: 05/06/20 09:59 Last Admin: 04/24/20 11:03 Dose: 220 mg Documented by: - Objective Vital Signs: Vital Signs Temperature 98.5 F 04/24/20 10:00 Pulse Rate 80 04/24/20 10:00 Respiratory Rate 18 04/24/20 10:00 Blood Pressure 135/55 L 04/24/20 10:00 O2 Sat by Pulse Oximetry (%) 98 04/24/20 09:00 Constitutional: Yes: Calm, Mild Distress Cardiovascular: Yes: S1, S2 Respiratory: Yes: Regular, CTA Bilaterally Gastrointestinal: Yes: Normal Bowel Sounds, Soft, Other (ng tube in place) Musculoskeletal: Yes: Other Extremities: Yes: Other Integumentary: Yes: Other Wound/Incision: Yes: Other (wound vac) Neurological: Yes: Alert, Oriented Psychiatric: Yes: Alert, Oriented Labs: CBC, BMP 04/24/20 05:40 04/24/20 05:40 Assessment/Plan Problem List - Problems (1) Severe sepsis Code(s): A41.9 - SEPSIS, UNSPECIFIED ORGANISM; R65.20 - SEVERE SEPSIS WITHOUT SEPTIC SHOCK (2) Bacteremia due to Gram-negative bacteria Code(s): R78.81 - BACTEREMIA (3) Status post spinal surgery Code(s): Z98.890 - OTHER SPECIFIED POSTPROCEDURAL STATES (4) Toxic metabolic encephalopathy Code(s): G92 - TOXIC ENCEPHALOPATHY (5) Urinary tract infection Code(s): N39.0 - URINARY TRACT INFECTION, SITE NOT SPECIFIED Qualifiers: Urinary tract infection type: site unspecified Hematuria presence: without hematuria Qualified Code(s): N39.0 - Urinary tract infection, site not specified Assessment/Plan 79 y.o. female with PMH of dementia, HTN, depression, lumbar stenosis s/p laminectomy, neuropathy who underwent removal of L3-L5 hardware, L3-S1 laminectomies, L5-S1 PLIF/L3-S1 PSIF on 04/09/20 and noted to develop fever up to 101.8F and increase in wbc to 16.8K along with lethargy and mild hypotension Severe Sepsis Gram negative/E. coli Bacteremia Pseudomonas UTI s/p lumbar wound I+D, s/p washout/wound vac placement plan continue iv abx as per icu close watch repeat cx pending cc 36 min
[2020-04-24] MEDS: LACTATED RINGERS SOLUTION 1,000 ML/1,000 ML INFUS.BAG IV SCH (14:30)
[2020-04-24] MEDS ORDERED: INSULIN (NOVOLOG) ASPART 100 UNITS/ML 10ML VIAL ONE (16:07)
[2020-04-24] MEDS: DAPTOMYCIN 500 MG in SODIUM CHLORIDE 50 ML IVPB SCH (16:08)
--- NOTE | 2020-04-24 20:34 | OP ---
Date of Operation: 04/23/2020 Surgeon: Marko Cuenca M.D. Pre-Operative Diagnosis: Deep thoracolumbar spine infection. Post-Operative Diagnosis: Deep thoracolumbar spine infection. Surgical Procedure: 1. Incision, drainage, debridement, and irrigation deep lumbar spine wound abscess (subfascial). (84168) 2. Application of negative pressure therapy wound vac ([id number], [id number]) Anesthesia: General endotracheal tube anesthesia. Position: Prone. Incision: Midline. Estimated Blood Loss: Minimal. Intravenous Fluid: 500cc crystalloid. Drains: 1 x WoundVac. Complications: None. Urine Output: See anesthesia record. Bacteriology: 3 x culture sticks. Closure: Application of wound vac. Indications: The patient is a 80-year-old female who was indicated for a incision, drainage, irrigation, and debridement of her posterior lumbar spine wound to evacuate and treat local wound contamination. The patient was identified in the holding area by her arm band. A long discussion was held with the patient regarding the risks, benefits, and alternatives of the above-named procedure. The risks include, but are not limited to: Pain, bleeding, infection, damage to surrounding structures (including nerves, blood vessels, skin, ligaments, tendons, and bone), dysphagia, dysphonia, nerve palsy, wound complications, pseudarthrosis, failure of fusion, failure of hardware/implants/reduction, need for further surgery, blood clots, myocardial infarction, pulmonary embolism, cerebrovascular event, anesthesia complications, neurological injury, loss of function, and . Benefits as mentioned above. Alternatives include no surgery. All questions were answered. The patient understood and agreed to the procedure. Informed telephone consent was obtained, witnessed, and verified from the patient's son by the hospital staff. The patient was taken to the operating room after being seen by the anesthesia and nursing staff. Procedure: The patient was brought into the operating room, placed on the OR table and secured with a safety strap. Consent and the operative site was again verified with the patient and nursing and anesthesia staff. Anesthesia was then administered. A time-out was then done led by , the attending surgeon. The patient was then safely placed in a prone position with all bony prominences well-padded on a Bay frame with strict attention paid to maintenance of sagittal vertical alignment. The arms were placed on well-padded arm boards and maintained with standard forward flexion, abduction, and external rotation of the shoulders, and flexion of the elbows. Special attention was given to the safe positioning of the cervical spine. The patients eyes, and belly were all free, and her breasts were offloaded. The table was placed in 5 degrees of reverse Trendelenburg position to avoid ophthalmic vein congestion. The lumbar spine was then prepped and draped in the standard sterile fashion using betadine prep and scrub, wiped off with alcohol, and Duraprep applied. Pre-operative imaging was available for intra-operative evaluation. Time-out was again done, and the case began. The entirety of the previously made lumbar spine incision was opened. All sutures were removed. All packing was removed. There was excellent interval proliferation of granulation tissue over the dura, and deep and superficial tissues. Again, the wound smelled foul. There was no sub-fascial nor suprafascial purulence. Culture swab sticks were used to swab the wound (deep and superficial) and sent to the lab. Necrotic paraspinal muscle tissue was debrided and also sent to the lab. All hardware was exposed. The wound dimensions were measured as follows: Length: 21cm. Width: 6cm. Depth: 7cm. The wound was irrigated with normal saline solution. All soft tissues and hardware were and mechanically debrided using multiple sponges with betadine soap. The wound was then irrigated with 3L normal saline solution. The wound was filled with 50% normal saline and 50% betadine solution. The wound was soaked in dilution betadine solution for 3 minutes. The wound was then irrigated with another 3L normal saline solution. The dura was intact. The anesthesiologist performed a Valsalva maneuver up to 40mmHg and again there was no evidence of active cerebrospinal fluid (CSF) leak nor active arterial or venous bleeding. Closure: With, hemostasis was assured, and the wound was packed with WoundVac sponges. The superficial and deep tissues were approximated using #1 PDS monofilament sutures using Lautenbach sepsis suture technique. The skin was then cleaned, dried, and painted with DuraPrep. Adhesive Ioban and WoundVac dressing was applied. A tongue-type sponge was utilized to place the WoundVac suction device to the side of the patient's flank, so that she wouldn't be lying directly on it. The WoundVac was activated with 125mmHg negative pressure therapy. There was no suction leak. The sponges contracted into the wound, demonstrating successful WoundVac placement. Sponge and needle counts were correct at the end of the case, and I, the attending surgeon, was present and scrubbed throughout the case. The patient was then transferred to a supine position on a hopital bed. The patient was then extubated by the anesthesia staff without incident or complications and was then transferred to the recovery room in stable condition having tolerated the procedure well. Marko Cuenca M.D. [id number] MTDD
[2020-04-24] MEDS: CHLORHEXIDINE GLUCONATE 4% CLEANSER FOR DECOLONIZATION TP SCH (22:30)
[2020-04-24] MEDS: CITALOPRAM HYDROBROMIDE 20 MG TABLET PO SCH (22:30)
[2020-04-24] MEDS: MIRTAZAPINE 15 MG TABLET (FP) PO SCH (22:30)
[2020-04-25] MEDS ORDERED: DEXTROSE 5%-WATER 100 ML IVPB ONE ×4 (02:47→22:23)
[2020-04-25] MEDS ORDERED: PIPERACILLIN/TAZOBACTAM 4.5 GM VIAL IVPB ONE ×4 (02:47→22:23)
[2020-04-25] MEDS: PIPERACILLIN/TAZOB 4.5 GM 4.5 GM in DEXTROSE 5%-WATER 100 ML IVPB SCH ×4 (02:52→22:27)
[2020-04-25] MEDS: PANTOPRAZOLE SOD 40 MG SUSPENSION PACKET PO SCH (06:24)
[2020-04-25 06:32] LABS: BASO % 0.5 % (0-2.0); LYMPH % 8.4 % (8-40); MCH 26.7 pg (25.7-33.7); MCHC 32.2 g/dl (32.0-36.0); MEAN CELL VOLUME 82.8 fl (80-96); MEAN PLT VOLUME 7.6 fl (7.5-11.1); MONO % 7.1 % (3.8-10.2); PLATELET COUNT 544 K/MM3 (134-434); RBC 2.54 M/mm3 (3.60-5.2); RDW 14.2 % (11.6-15.6); WHITE BLOOD COUNT 20.8 K/mm3 (4.0-10.0)
[2020-04-25 06:39] LABS: HEMOGLOBIN 6.8 GM/dL (10.7-15.3)
[2020-04-25 06:45] LABS: INR 1.25 (0.83-1.09); PROTHROMBIN TIME (PATIENT) 14.8 SEC (9.7-13.0)
[2020-04-25 06:48] LABS: ACTIVATED PTT 35.7 SECONDS (25.2-36.5)
[2020-04-25 06:59] LABS: BLOOD UREA NITROGEN 18.4 mg/dL (7-18); CALCIUM 8.9 mg/dL (8.5-10.1); CREATININE 0.8 mg/dL (0.55-1.3); MAGNESIUM 1.9 mg/dL (1.8-2.4); PHOSPHOROUS 2.7 mg/dL (2.5-4.9); POTASSIUM 3.5 mmol/L (3.5-5.1)
[2020-04-25 09:10] LABS: ANISOCYTOSIS 1+; MACROCYTOSIS 1+; PLATELET ESTIMATE INCREASED
[2020-04-25] MEDS: POLYETHYLENE GLYCOL 3350 119 GM BTL PO SCH ×2 (10:06→22:31)
[2020-04-25] MEDS: MULTIVIT-MINERALS ORAL LIQUID PO SCH (10:06)
[2020-04-25] MEDS: MUPIROCIN 2% TOPICAL OINTMENT FOR DECOLONIZATION NS SCH (10:06)
[2020-04-25] MEDS: ZINC SULFATE 220 MG CAPSULE (FP) PO SCH (10:06)
[2020-04-25] MEDS: ASCORBIC ACID 500 MG TABLET (FP) PO SCH ×2 (10:07→22:28)
[2020-04-25] MEDS: SENNOSIDES/DOCUSATE COMBO (SENNA PLUS) TABLET (UD) PO SCH ×2 (10:07→22:28)
[2020-04-25] MEDS: morphine SULFATE 4 MG/ML VIAL IVPUSH PRN (10:07)
--- NOTE | 2020-04-25 10:57 | PN ---
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, WORK ADJUSTMENT INSTRUCTOR - Note 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: Pt tolerated a cup of yogurt and a cup of jello, small sips of water yesterday. For OR today. May benefit from PEG to supplement PO intake. Pt's wishes?
--- NOTE | 2020-04-25 11:33 | PN ---
Teaching Attending Note Name of Resident: Corin Nick ATTENDING PHYSICIAN STATEMENT I saw and evaluated the patient. I reviewed the resident's note and discussed the case with the resident. I agree with the resident's findings and plan as documented. SUBJECTIVE: Pt seen and examined in the ICU. Back to OR today. Low grade temps. OBJECTIVE: Vital Signs Period Temp Pulse Resp BP Sys/Lepe Pulse Ox Last 24 Hr 99 F-100.0 F 80-92 18-31 113-151/48-62 96-99 Intake & Output 04/22/20 04/23/20 04/24/20 04/25/20 23:59 23:59 23:59 23:59 Intake Total 3144 3844 4260 800 Output Total 3800 2400 1600 500 Balance -656 1444 2660 300 Weight 66.5 kg 67.7 kg 71.2 kg 72.802 kg Gen: NAD at rest Heart: RRR Lung: decreased breath sounds at the bases Abd: soft, nontender Ext: no edema CBC, BMP 04/25/20 06:00 04/25/20 06:00 Active Medications Acetaminophen (Tylenol -) 650 mg PO Q6H PRN PRN Reason: Fever Ascorbic Acid (Vitamin C -) 500 mg PO BID JAYE Last Admin: 04/25/20 10:07 Dose: Not Given Documented by: Chlorhexidine Gluconate (Hibiclens For Decolonization -) 1 applic TP HS [facility] Last Admin: 04/24/20 22:30 Dose: 1 applic Documented by: Citalopram Hydrobromide (Celexa -) 20 mg PO HS [facility] Last Admin: 04/24/20 22:30 Dose: 20 mg Documented by: Piperacillin Sod/Tazobactam (Sod 4.5 gm/ Dextrose) 100 mls @ 200 mls/hr IVPB Q6H-IV JAYE; Protocol Last Admin: 04/25/20 10:06 Dose: 200 mls/hr Documented by: Lactated Ringer's (Lactated Ringers Solution) 1,000 ml in 1,000 mls @ 100 mls/hr IV ASDIR JAYE Last Admin: 04/24/20 14:30 Dose: 100 mls/hr Documented by: Daptomycin 500 mg/ Sodium (Chloride) 50 mls @ 50 mls/hr IVPB Q24H JAYE; Protocol Last Admin: 04/24/20 16:08 Dose: 50 mls/hr Documented by: Mirtazapine (Remeron -) 7.5 mg PO HS [facility] Last Admin: 04/24/20 22:30 Dose: 7.5 mg Documented by: Morphine Sulfate (Morphine Sulfate) 4 mg IVPUSH Q4H PRN PRN Reason: PAIN LEVEL 6-10 Last Admin: 04/25/20 10:07 Dose: 4 mg Documented by: Multivitamins/Minerals (Certavite-Antioxidant Liquid) 15 ml PO DAILY [facility] Last Admin: 04/25/20 10:06 Dose: Not Given Documented by: Mupirocin (Bactroban Ointment (For Decolonization) -) 1 applic NS BID [facility] Stop: 04/25/20 21:59 Last Admin: 04/25/20 10:06 Dose: 1 applic Documented by: Ondansetron HCl (Zofran Injection) 4 mg IVPUSH Q6H PRN PRN Reason: NAUSEA AND/OR VOMITING Pantoprazole Sodium (Protonix Packets For Oral Suspension -) 40 mg PO ACBK [facility] Last Admin: 04/25/20 06:24 Dose: 40 mg Documented by: Polyethylene Glycol (Miralax (For Daily Use) -) 17 gm PO BID [facility] Last Admin: 04/25/20 10:06 Dose: Not Given Documented by: Senna/Docusate Sodium (Pericolace -) 1 tablet PO BID [facility] Last Admin: 04/25/20 10:07 Dose: Not Given Documented by: Zinc Sulfate (Orazinc -) 220 mg PO DAILY [facility] Stop: 05/06/20 09:59 Last Admin: 04/25/20 10:06 Dose: Not Given Documented by: ASSESSMENT AND PLAN: Lumbar Spinal Stenosis s/p Removal of L3-L5 hardware, including L4-L5 intervertebral cage, L3-S1 laminectomy, L5-S1 PLIF, L3-S1 posterior instrumented spinal fusion 04/09/20 Wound Infection E Coli Bacteremia s/p I&D of the lumbar spine 04/18/20 s/p Wash out and VAC placement 04/20/20 s/p I&D/Wound vac exchange 04/23/20 Hypertension Dementia Depression Anemia - transfuse PRBC - monitor H/H - continue antibiotics - f/u cultures - pain control - incentive spirometry - PO as tolerated - enteral feeds - rehab/PT - DVT prophylaxis - disposition per surgery
[2020-04-25] MEDS ORDERED: MORPHINE SULFATE 2 MG/ML VIAL IVPUSH ONE (13:01)
[2020-04-25 13:15] LABS: HEMATOCRIT 26.9 % (32.4-45.2); HEMOGLOBIN 8.5 GM/dL (10.7-15.3); MCH 26.1 pg (25.7-33.7); MCHC 31.5 g/dl (32.0-36.0); MEAN CELL VOLUME 82.7 fl (80-96); MEAN PLT VOLUME 7.8 fl (7.5-11.1); PLATELET COUNT 527 K/MM3 (134-434); RBC 3.25 M/mm3 (3.60-5.2); RDW 14.6 % (11.6-15.6); WHITE BLOOD COUNT 21.8 K/mm3 (4.0-10.0)
[2020-04-25] MEDS: LACTATED RINGERS SOLUTION 1,000 ML/1,000 ML INFUS.BAG IV SCH (13:59)
--- NOTE | 2020-04-25 14:02 | PN ---
Physical Exam: SUBJECTIVE: Patient seen and examined. During my initial encounter, she denied any pain. She later in the afternoon endorsed suprapubic pain and was given morphine with good effect. OBJECTIVE: Vital Signs Period Temp Pulse Resp BP Sys/Lepe Pulse Ox Last 24 Hr 99 F-100.0 F 81-92 18-31 113-151/48-62 96-99 AM EXAM GENERAL: The patient is awake, alert, in no acute distress. HEAD: Normal with no signs of trauma. EYES: PERRL, extraocular movements intact, sclera anicteric, conjunctiva clear. ENT: Ears normal, nares patent, oropharynx clear without exudates, dry oral mucous membranes. NG tube in place. NECK: Trachea midline, full range of motion. LUNGS: Clear to auscultation anteriorly, no accessory muscle use. HEART: Regular rate and rhythm, no murmur appreciated. ABDOMEN: Soft, nontender, nondistended, normoactive bowel sounds. EXTREMITIES: Warm, well-perfused, no edema. Generalized weakness L > R. NEUROLOGICAL: Cranial nerves II through XII grossly intact. Normal speech. PSYCH: Normal mood, normal affect. SKIN: Warm, dry, normal turgor. Laboratory Results - last 24 hr 04/24/20 04/24/20 04/25/20 14:45 15:00 06:00 WBC 20.8 H RBC 2.54 L Hgb 6.8 L* Hct 21.0 L MCV 82.8 MCH 26.7 MCHC 32.2 RDW 14.2 Plt Count 544 H MPV 7.6 Absolute Neuts (auto) 17.2 H Neutrophils % 83.0 H Neutrophils % (Manual) 88.9 H Band Neutrophils % 0.0 Lymphocytes % 8.4 Lymphocytes % (Manual) 5.1 L D Monocytes % 7.1 Monocytes % (Manual) 2 L Eosinophils % 1.0 Eosinophils % (Manual) 1.0 Basophils % 0.5 Basophils % (Manual) 0.0 Myelocytes % (Man) 2 D Promyelocytes % (Man) 0 Blast Cells % (Manual) 0 Nucleated RBC % 1 H Metamyelocytes 0 Hypochromia 2+ Platelet Estimate Increased Polychromasia 1+ Poikilocytosis 0 Anisocytosis 1+ Microcytosis 1+ Macrocytosis 1+ PT with INR INR PTT (Actin FS) Sodium Potassium Chloride Carbon Dioxide Anion Gap BUN Creatinine Est GFR (CKD-EPI)AfAm Est GFR (CKD-EPI)NonAf Random Glucose Calcium Phosphorus Magnesium COVID-19 (ESTER) Not detected Blood Type O POSITIVE Antibody Screen Negative Crossmatch See Detail 04/25/20 04/25/20 04/25/20 06:00 06:00 12:49 WBC 21.8 H RBC 3.25 L Hgb 8.5 L Hct 26.9 L D MCV 82.7 MCH 26.1 MCHC 31.5 L RDW 14.6 Plt Count 527 H MPV 7.8 Absolute Neuts (auto) Neutrophils % Neutrophils % (Manual) Band Neutrophils % Lymphocytes % Lymphocytes % (Manual) Monocytes % Monocytes % (Manual) Eosinophils % Eosinophils % (Manual) Basophils % Basophils % (Manual) Myelocytes % (Man) Promyelocytes % (Man) Blast Cells % (Manual) Nucleated RBC % Metamyelocytes Hypochromia Platelet Estimate Polychromasia Poikilocytosis Anisocytosis Microcytosis Macrocytosis PT with INR 14.80 H INR 1.25 H PTT (Actin FS) 35.7 Sodium 141 Potassium 3.5 Chloride 107 Carbon Dioxide 28 Anion Gap 5 L BUN 18.4 H Creatinine 0.8 Est GFR (CKD-EPI)AfAm 82.42 Est GFR (CKD-EPI)NonAf 71.11 Random Glucose 104 Calcium 8.9 Phosphorus 2.7 Magnesium 1.9 COVID-19 (ESTER) Blood Type Antibody Screen Crossmatch Active Medications Generic Name Dose Route Start Last Admin Trade Name Freq PRN Reason Stop Dose Admin Acetaminophen 650 mg 04/19/20 02:19 Tylenol - PO Q6H PRN Fever Ascorbic Acid 500 mg 04/21/20 22:00 04/25/20 10:07 Vitamin C - PO Not Given BID JAYE Chlorhexidine Gluconate 1 applic 04/20/20 22:00 04/24/20 22:30 Hibiclens For Decolonization - TP 1 applic HS JAYE Administration Citalopram Hydrobromide 20 mg 04/19/20 22:00 04/24/20 22:30 Celexa - PO 20 mg HS JAYE Administration Piperacillin Sod/Tazobactam 100 mls @ 200 mls/hr 04/19/20 21:00 04/25/20 10:06 Sod 4.5 gm/ Dextrose IVPB 200 mls/hr Q6H-IV JAYE Administration Protocol Lactated Ringer's 1,000 ml in 1,000 mls @ 100 mls/hr 04/23/20 11:15 04/24/20 14:30 Lactated Ringers Solution IV 100 mls/hr ASDIR JAYE Administration Daptomycin 500 mg/ Sodium 50 mls @ 50 mls/hr 04/23/20 16:00 04/24/20 16:08 Chloride IVPB 50 mls/hr Q24H JAYE Administration Protocol Insulin Aspart 1 vial 04/25/20 16:30 Novolog Vial Sliding Scale - SQ ACHS JAYE Protocol Mirtazapine 7.5 mg 04/19/20 22:00 04/24/20 22:30 Remeron - PO 7.5 mg HS JAYE Administration Morphine Sulfate 4 mg 04/23/20 11:02 04/25/20 10:07 Morphine Sulfate IVPUSH 4 mg Q4H PRN Administration PAIN LEVEL 6-10 Multivitamins/Minerals 15 ml 04/23/20 12:45 04/25/20 10:06 Certavite-Antioxidant Liquid PO Not Given DAILY JAYE Mupirocin 1 applic 04/20/20 22:00 04/25/20 10:06 Bactroban Ointment (For Decolonization) - NS 04/25/20 21:59 1 applic BID JAYE Administration Ondansetron HCl 4 mg 04/20/20 16:17 Zofran Injection IVPUSH Q6H PRN NAUSEA AND/OR VOMITING Pantoprazole Sodium 40 mg 04/22/20 01:11 04/25/20 06:24 Protonix Packets For Oral Suspension - PO 40 mg ACBK JAYE Administration Polyethylene Glycol 17 gm 04/22/20 10:30 04/25/20 10:06 Miralax (For Daily Use) - PO Not Given BID JAYE Senna/Docusate Sodium 1 tablet 04/22/20 10:00 04/25/20 10:07 Pericolace - PO Not Given BID JAYE Zinc Sulfate 220 mg 04/22/20 10:00 04/25/20 10:06 Orazinc - PO 05/06/20 09:59 Not Given DAILY JAYE ASSESSMENT/PLAN: Pt is a 79 y/o female with HTN, dementia, depression, spinal stenosis, and neuropathy with recent extensive lumbar back surgery (removal of hardware L3-L5 including L4-L5 intervertebral cage, inspection of fusion mass, L3-S1 laminectomies, L5-S1 PLIF, L3-S1 posterior instrumented spinal fusion) on 04/09/2020, s/p I&Ds as well as wash outs (04/18/20, 04/20/20, 04/23/20). #neuro -awake and oriented -left side weakness is not new symptom, pt is right-handed, has been bed-bound for 8 years, and has become increasingly deconditioned during hospital course #pulm -stable -incentive spirometer -keep O2 >90 #cardio -hemodynamically stable -monitor vitals -consider adding home meds if pt becomes hypertensive #renal -hypomagnesemia, resolved #ID -wound cx VRE, e.coli from 04/18 and 04/20; third cx pending -Zosyn day 7 -daptomycin day 3 -ID following #MSK -scheduled for wash out today -morphine 4mg Q4H #GI -needs increased nutrition given sepsis and low food intake recently -NG tube in place with feeds on -encourage PO intake -dietary following -GI consulted -bowel regimen -PEG will need to be considered for long-term nutrition #psych -hx depression -mirtazipine -Celexa DVT Ppx SCDs GI Ppx Protonix FEN LR 100mL/hr monitor Mg Pivot dispo ICU I&D with wash out anticipated tomorrow FULL CODE Visit type - Emergency Visit Emergency Visit: Yes ED Registration Date: 04/09/20 Care time: The patient presented to the Emergency Department on the above date and was hospitalized for further evaluation of their emergent condition. - New Patient This patient is new to me today: No - Critical Care Critical Care patient: Yes Total Critical Care Time (in minutes): 36 Critical Care Statement: The care of this patient involved high complexity decision making to prevent further life threatening deterioration of the nataliya ent's condition and/or to evaluate & treat vital organ system(s) failure or risk of failure. - Medication Review Med list reviewed for High Risk Meds patients 65 and older: Yes ATTENDING PHYSICIAN STATEMENT I saw and evaluated the patient. I reviewed the resident's note and discussed the case with the resident. I agree with the resident's findings and plan as documented. SUBJECTIVE: OBJECTIVE: ASSESSMENT AND PLAN:
--- NOTE | 2020-04-25 14:14 | PN ---
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, Physician History of Present Illness: low grade temp wbc continues to be high cx results noted back in the or for washout - Current Medication List Current Medications: Active Medications Acetaminophen (Tylenol -) 650 mg PO Q6H PRN PRN Reason: Fever Ascorbic Acid (Vitamin C -) 500 mg PO BID [facility] Last Admin: 04/25/20 10:07 Dose: Not Given Documented by: Chlorhexidine Gluconate (Hibiclens For Decolonization -) 1 applic TP [facility] Last Admin: 04/24/20 22:30 Dose: 1 applic Documented by: Citalopram Hydrobromide (Celexa -) 20 mg PO HS [facility] Last Admin: 04/24/20 22:30 Dose: 20 mg Documented by: Piperacillin Sod/Tazobactam (Sod 4.5 gm/ Dextrose) 100 mls @ 200 mls/hr IVPB Q6 H-IV [facility]; Protocol Last Admin: 04/25/20 10:06 Dose: 200 mls/hr Documented by: Lactated Ringer's (Lactated Ringers Solution) 1,000 ml in 1,000 mls @ 100 mls/hr IV ASDIR [facility] Last Admin: 04/25/20 13:59 Dose: Not Given Documented by: Daptomycin 500 mg/ Sodium (Chloride) 50 mls @ 50 mls/hr IVPB Q24H [facility]; Protocol Last Admin: 04/24/20 16:08 Dose: 50 mls/hr Documented by: Insulin Aspart (Novolog Vial Sliding Scale -) 1 vial SQ ACHS [facility]; Protocol Mirtazapine (Remeron -) 7.5 mg PO [facility] Last Admin: 04/24/20 22:30 Dose: 7.5 mg Documented by: Morphine Sulfate (Morphine Sulfate) 4 mg IVPUSH Q4H PRN PRN Reason: PAIN LEVEL 6-10 Last Admin: 04/25/20 10:07 Dose: 4 mg Documented by: Multivitamins/Minerals (Certavite-Antioxidant Liquid) 15 ml PO DAILY [facility] Last Admin: 04/25/20 10:06 Dose: Not Given Documented by: Mupirocin (Bactroban Ointment (For Decolonization) -) 1 applic NS BID [facility] Stop: 04/25/20 21:59 Last Admin: 04/25/20 10:06 Dose: 1 applic Documented by: Ondansetron HCl (Zofran Injection) 4 mg IVPUSH Q6H PRN PRN Reason: NAUSEA AND/OR VOMITING Pantoprazole Sodium (Protonix Packets For Oral Suspension -) 40 mg PO ACBK [facility] Last Admin: 04/25/20 06:24 Dose: 40 mg Documented by: Polyethylene Glycol (Miralax (For Daily Use) -) 17 gm PO BID [facility] Last Admin: 04/25/20 10:06 Dose: Not Given Documented by: Senna/Docusate Sodium (Pericolace -) 1 tablet PO BID [facility] Last Admin: 04/25/20 10:07 Dose: Not Given Documented by: Zinc Sulfate (Orazinc -) 220 mg PO DAILY [facility] Stop: 05/06/20 09:59 Last Admin: 04/25/20 10:06 Dose: Not Given Documented by: - Objective Vital Signs: Vital Signs Temperature 99.1 F 04/25/20 09:47 Pulse Rate 82 04/25/20 11:00 Respiratory Rate 19 04/25/20 11:00 Blood Pressure 148/62 04/25/20 11:00 O2 Sat by Pulse Oximetry (%) 98 04/25/20 11:52 Constitutional: Yes: Calm, Mild Distress Cardiovascular: Yes: S1, S2 Respiratory: Yes: Regular, CTA Bilaterally Gastrointestinal: Yes: Normal Bowel Sounds, Soft Musculoskeletal: Yes: WNL Extremities: Yes: Other Wound/Incision: Yes: Dressing Dry and Intact, Other Neurological: Yes: Alert, Oriented Psychiatric: Yes: Alert, Oriented Labs: CBC, BMP 04/25/20 12:49 04/25/20 06:00 INR, PTT INR 1.25 (0.83-1.09) H 04/25/20 06:00 Assessment/Plan Problem List - Problems (1) Severe sepsis Code(s): A41.9 - SEPSIS, UNSPECIFIED ORGANISM; R65.20 - SEVERE SEPSIS WITHOUT SEPTIC SHOCK (2) Bacteremia due to Gram-negative bacteria Code(s): R78.81 - BACTEREMIA (3) Status post spinal surgery Code(s): Z98.890 - OTHER SPECIFIED POSTPROCEDURAL STATES (4) Toxic metabolic encephalopathy Code(s): G92 - TOXIC ENCEPHALOPATHY (5) Urinary tract infection Code(s): N39.0 - URINARY TRACT INFECTION, SITE NOT SPECIFIED Qualifiers: Urinary tract infection type: site unspecified Hematuria presence: without hematuria Qualified Code(s): N39.0 - Urinary tract infection, site not specified Assessment/Plan 79 y.o. female with PMH of dementia, HTN, depression, lumbar stenosis s/p laminectomy, neuropathy who underwent removal of L3-L5 hardware, L3-S1 laminectomies, L5-S1 PLIF/L3-S1 PSIF on 04/09/20 and noted to develop fever up to 101.8F and increase in wbc to 16.8K along with lethargy and mild hypotension Severe Sepsis Gram negative/E. coli Bacteremia Pseudomonas UTI s/p lumbar wound I+D, s/p washout/wound vac placement plan continue iv abx as per icu close watch repeat cx pending washout cx to be send monitor wbc monitor fevers cc 36 min
[2020-04-25] MEDS ORDERED: PROPOFOL 20 ML ONE (15:19)
[2020-04-25] MEDS ORDERED: ROCURONIUM BROMIDE 50 MG/5 ML SYRINGE ONE (15:20)
[2020-04-25] MEDS ORDERED: EPHEDRINE SULFATE/0.9% NACL/PF 50 MG/10 ML SYRINGE NR ONE (15:55)
[2020-04-25] MEDS ORDERED: GLYCOPYRROLATE 0.2 MG/1 ML VIAL ONE (16:35)
[2020-04-25] MEDS ORDERED: VANCOMYCIN 1,000 MG VIAL (RESTRICTED TO ID ONLY) IVPB ONE (16:45)
[2020-04-25] MEDS ORDERED: NEOSTIGMINE METHYLSULFATE 0.5 MG/1 ML - 10 ML MDV ONE (16:54)
[2020-04-25] MEDS: INSULIN SLIDING SCALE (NOVOLOG) 1 VIAL SQ SCH ×2 (17:03→22:31)
[2020-04-25] MEDS: DAPTOMYCIN 500 MG in SODIUM CHLORIDE 50 ML IVPB SCH (17:03)
--- NOTE | 2020-04-25 17:27 | PATH ---
Surgical Pathology Report Patient Name: MOO MORALES [facility]. Rec. 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 Specimen(s) Received SUBCUTANEOUS TISSUE Clinical History Intervertebral disc disorder Final Diagnosis SUBCUTANEOUS TISSUE, LUMBAR SPINE, INCISION AND DRAINAGE: DENSE FIBROCONNECTIVE TISSUE, FIBROADIPOSE TISSUE, AND SKELETAL MUSCLE WITH MODERATE ACUTE INFLAMMATION, HEMORRHAGE, AND NECROSIS. Electronically Signed Josefa Palacios M.D. Gross Description Received in formalin labeled "subcutaneous tissue lumbar," is a 4.4 x 3.5 x 0.4 cm aggregate of martins fragments of fibrous tissue. A uniforms sales representative portion is submitted in one cassette. /04/24/2020 saudi/04/24/2020
[2020-04-25] MEDS ORDERED: PT OWN MED DRAWER 7, Y5N ONE (22:23)
[2020-04-25] MEDS: MIRTAZAPINE 15 MG TABLET (FP) PO SCH (22:28)
[2020-04-25] MEDS: CITALOPRAM HYDROBROMIDE 20 MG TABLET PO SCH (22:28)
[2020-04-25] MEDS: ACETAMINOPHEN 325 MG TABLET (FP) PO PRN (22:29)
[2020-04-25] MEDS: CHLORHEXIDINE GLUCONATE 4% CLEANSER FOR DECOLONIZATION TP SCH (22:30)
[2020-04-26] MEDS ORDERED: DEXTROSE 5%-WATER 100 ML IVPB ONE ×4 (01:45→20:25)
[2020-04-26] MEDS ORDERED: PIPERACILLIN/TAZOBACTAM 4.5 GM VIAL IVPB ONE ×4 (01:45→20:25)
[2020-04-26] MEDS: PIPERACILLIN/TAZOB 4.5 GM 4.5 GM in DEXTROSE 5%-WATER 100 ML IVPB SCH ×4 (02:00→22:27)
[2020-04-26] MEDS: INSULIN SLIDING SCALE (NOVOLOG) 1 VIAL SQ SCH ×4 (06:02→22:28)
[2020-04-26] MEDS: ACETAMINOPHEN 325 MG TABLET (FP) PO PRN (06:06)
[2020-04-26] MEDS: PANTOPRAZOLE SOD 40 MG SUSPENSION PACKET PO SCH (06:06)
--- NOTE | 2020-04-26 08:21 | PN ---
Physical Exam: SUBJECTIVE: Patient seen and examined Patient seen and examined. During my initial encounter, she denied any pain. She later in the afternoon endorsed suprapubic pain and was given morphine with good effect. OBJECTIVE: Vital Signs Period Temp Pulse Resp BP Sys/Lepe Pulse Ox Last 24 Hr 97.0 F-99.3 F 59-89 15-31 120-158/52-67 97-100 GENERAL: The patient is awake, alert, in no acute distress. HEAD: Normal with no signs of trauma. EYES: PERRL, extraocular movements intact, sclera anicteric, conjunctiva clear. ENT: Ears normal, nares patent, oropharynx clear without exudates, dry oral mucous membranes. NG tube in place. NECK: Trachea midline, full range of motion. LUNGS: Clear to auscultation anteriorly, no accessory muscle use. HEART: Regular rate and rhythm, no murmur appreciated. ABDOMEN: Soft, nontender, nondistended, normoactive bowel sounds. EXTREMITIES: Warm, well-perfused, no edema. Generalized weakness L > R. NEUROLOGICAL: Cranial nerves II through XII grossly intact. Normal speech. PSYCH: Normal mood, normal affect. SKIN: Warm, dry, normal turgor. Laboratory Results - last 24 hr 04/24/20 04/24/20 04/25/20 14:45 15:00 06:00 WBC RBC Hgb Hct MCV MCH MCHC RDW Plt Count MPV Neutrophils % (Manual) 88.9 H Band Neutrophils % 0.0 Lymphocytes % (Manual) 5.1 L D Monocytes % (Manual) 2 L Eosinophils % (Manual) 1.0 Basophils % (Manual) 0.0 Myelocytes % (Man) 2 D Promyelocytes % (Man) 0 Blast Cells % (Manual) 0 Nucleated RBC % 1 H Metamyelocytes 0 Hypochromia 2+ Platelet Estimate Increased Polychromasia 1+ Poikilocytosis 0 Anisocytosis 1+ Microcytosis 1+ Macrocytosis 1+ POC Glucometer COVID-19 (ESTER) Not detected Blood Type O POSITIVE Antibody Screen Negative Crossmatch See Detail 04/25/20 04/25/20 04/26/20 12:49 22:41 05:54 WBC 21.8 H RBC 3.25 L Hgb 8.5 L Hct 26.9 L D MCV 82.7 MCH 26.1 MCHC 31.5 L RDW 14.6 Plt Count 527 H MPV 7.8 Neutrophils % (Manual) Band Neutrophils % Lymphocytes % (Manual) Monocytes % (Manual) Eosinophils % (Manual) Basophils % (Manual) Myelocytes % (Man) Promyelocytes % (Man) Blast Cells % (Manual) Nucleated RBC % Metamyelocytes Hypochromia Platelet Estimate Polychromasia Poikilocytosis Anisocytosis Microcytosis Macrocytosis POC Glucometer 110 98 COVID-19 (ESTER) Blood Type Antibody Screen Crossmatch Active Medications Generic Name Dose Route Start Last Admin Trade Name Freq PRN Reason Stop Dose Admin Acetaminophen 650 mg 04/19/20 02:19 04/26/20 06:06 Tylenol - PO 650 mg Q6H PRN Administration Fever Ascorbic Acid 500 mg 04/21/20 22:00 04/25/20 22:28 Vitamin C - PO 500 mg BID JAYE Administration Chlorhexidine Gluconate 1 applic 04/20/20 22:00 04/25/20 22:30 Hibiclens For Decolonization - TP 1 applic HS JAYE Administration Citalopram Hydrobromide 20 mg 04/19/20 22:00 04/25/20 22:28 Celexa - PO 20 mg HS JAYE Administration Piperacillin Sod/Tazobactam 100 mls @ 200 mls/hr 04/19/20 21:00 04/26/20 02:00 Sod 4.5 gm/ Dextrose IVPB 200 mls/hr Q6H-IV JAYE Administration Protocol Lactated Ringer's 1,000 ml in 1,000 mls @ 100 mls/hr 04/23/20 11:15 04/25/20 13:59 Lactated Ringers Solution IV Not Given ASDIR JAYE Daptomycin 500 mg/ Sodium 50 mls @ 50 mls/hr 04/23/20 16:00 04/25/20 17:03 Chloride IVPB Not Given Q24H JAYE Protocol Insulin Aspart 1 vial 04/25/20 16:30 04/26/20 06:02 Novolog Vial Sliding Scale - SQ Not Given ACHS JAYE Protocol Mirtazapine 7.5 mg 04/19/20 22:00 04/25/20 22:28 Remeron - PO 7.5 mg HS JAYE Administration Morphine Sulfate 4 mg 04/23/20 11:02 04/25/20 10:07 Morphine Sulfate IVPUSH 4 mg Q4H PRN Administration PAIN LEVEL 6-10 Multivitamins/Minerals 15 ml 04/23/20 12:45 04/25/20 10:06 Certavite-Antioxidant Liquid PO Not Given DAILY JAYE Ondansetron HCl 4 mg 04/20/20 16:17 Zofran Injection IVPUSH Q6H PRN NAUSEA AND/OR VOMITING Pantoprazole Sodium 40 mg 04/22/20 01:11 04/26/20 06:06 Protonix Packets For Oral Suspension - PO 40 mg ACBK JAYE Administration Polyethylene Glycol 17 gm 04/22/20 10:30 04/25/20 22:31 Miralax (For Daily Use) - PO Not Given BID JAYE Senna/Docusate Sodium 1 tablet 04/22/20 10:00 04/25/20 22:28 Pericolace - PO 1 tablet BID JAYE Administration Zinc Sulfate 220 mg 04/22/20 10:00 04/25/20 10:06 Orazinc - PO 05/06/20 09:59 Not Given DAILY JAYE ASSESSMENT/PLAN: Pt is a 79 y/o female with HTN, dementia, depression, spinal stenosis, and neuropathy with recent extensive lumbar back surgery (removal of hardware L3-L5 including L4-L5 intervertebral cage, inspection of fusion mass, L3-S1 laminectomies, L5-S1 PLIF, L3-S1 posterior instrumented spinal fusion) on 04/09/2020, s/p I&Ds as well as wash outs (04/18/20, 04/20/20, 04/23/20, 04/25/20??). #neuro -awake and oriented -left side weakness is not new symptom, pt is right-handed, has been bed-bound for 8 years, and has become increasingly deconditioned during hospital course #pulm -stable -incentive spirometer -keep O2 >90 #cardio -hemodynamically stable -monitor vitals -consider adding home meds if pt becomes hypertensive #renal -hypomagnesemia, resolved #ID -wound cx VRE, e.coli from 04/18 and 04/20; third cx pending -Zosyn day 7 -daptomycin day 3 -ID following #MSK -scheduled for wash out today -morphine 4mg Q4H #GI -needs increased nutrition given sepsis and low food intake recently -NG tube in place with feeds on -encourage PO intake -dietary following -GI consulted -bowel regimen -PEG will need to be considered for long-term nutrition #psych -hx depression -mirtazipine -Celexa DVT Ppx SCDs GI Ppx Protonix FEN LR 100mL/hr monitor Mg Pivot dispo ICU I&D with wash out anticipated tomorrow ATTENDING PHYSICIAN STATEMENT I saw and evaluated the patient. I reviewed the resident's note and discussed the case with the resident. I agree with the resident's findings and plan as documented. SUBJECTIVE: OBJECTIVE: ASSESSMENT AND PLAN:
--- NOTE | 2020-04-26 09:10 | PN ---
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 (short form) - Note 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: 79F s/p removal of hardware L3-L5 (including L4-L5 intervertebral cage), inspection of fusion mass, L3-S1 laminectomies, L5-S1 PLIF, L3-S1 posterior instrumented spinal fusion (04/09/2020) s/p I&D lumbar spine with betadine dressing wound packing (04/18/2020, s/p I&D lumbar spine w/application of woundvac (04/20/2020), s/p I&D lumbar spine with application of woundvac (04/23/2020), and now I&D lumbar spine with delayed primary closure POD #0. (+) Excellent proliferation of granulation tissue over dura, deep, & superficial tissues. (-) Foul smelling. (+) Paraspinal muscle necrosis. 3 x wound cultures sent to lab. Valsalva maneuver to 40mmHg revealed no CSF leak nor uncontrollable bleeding. Wound irrigated with 3L NS & debrided with betadine sponge. 3 minute wound soak with diluted betadine solution. 2nd Valsalva maneuver to 40mmHg again revealed no CSF leak nor uncontrollable bleeding. Delayed primary closure with Lautenbach sutures. This patient is in urgent need of nutrition. She is in a severe caloric and nitrogen deficit, is severely malnourished, and simply will not heal her wounds not mount a response to fight her spine infection unless she receives proper nutritional support immediately. -Admit to ICU post-op. -Pain medication: per anaesthesia team; NO NSAID's. -f/u NEW OR wound cultures x 3 (aerobic, anaerobic, AFB, fungal). -Maintain avila catheter until patient comfortably ambulating. -f/u drain output. -DVT PPx: -Mechanical only: LITA's, SCD's. -f/u AM labs: CBC, BMP; monitor renal function closely. -Incentive spirometry. -PT/OT/Rehab, OOB. -WBAT B/L LE. -No heavy lifting (>5 lbs), bending or twisting x 6 months post op. -B/L UE & LE NV checks. -Care per ICU, ID, GI, and primary medical hospitalist teams. -Discharge planning: nutritional optimization: Pt. needs high calorie dietary support with amino acid/protein boost; strongly recommend discharge to spinal cord injury rehabilitation facility after discharge (ex: [facility], [facility]). -Will follow. Seth Cuenca MD (Orthopaedic Surgery).
--- NOTE | 2020-04-26 09:12 | OP ---
Operative Note - Note: Operative Date: 04/25/20 Pre-Operative Diagnosis: Lumbar spine infection Operation: 1. I&D lumbar spine. 2. Complex wound closure Findings: (+) Excellent proliferation of granulation tissue over dura, deep, & superficial tissues. (-) Foul smelling. (+) Paraspinal muscle necrosis. 3 x wound cultures sent to lab. Valsalva maneuver to 40mmHg revealed no CSF leak nor uncontrollable bleeding. Wound irrigated with 3L NS & debrided with betadine sponge. 3 minute wound soak with diluted betadine solution. 2nd Valsalva maneuver to 40mmHg again revealed no CSF leak nor uncontrollable bleeding. Delayed primary closure with Lautenbach sutures. Post-Operative Diagnosis: Same as Pre-op Surgeon: Seth Cuenca Anesthesiologist/PRODUCT MANAGEMENT CONSULTANT: Darwin Vazquez Anesthesia: General Specimens Removed: Culture sticks Estimated Blood Loss (mls): 10 Drains & Tubes with Location: 1 x deep HemoVac Operative Report Dictated: Yes
[2020-04-26] MEDS ORDERED: PT OWN MED DRAWER 7, Y5N ONE ×2 (09:40→20:25)
[2020-04-26] MEDS: MULTIVIT-MINERALS ORAL LIQUID PO SCH (10:03)
[2020-04-26] MEDS: ASCORBIC ACID 500 MG TABLET (FP) PO SCH ×2 (10:04→22:07)
[2020-04-26] MEDS: POLYETHYLENE GLYCOL 3350 119 GM BTL PO SCH ×2 (10:04→22:28)
[2020-04-26] MEDS: SENNOSIDES/DOCUSATE COMBO (SENNA PLUS) TABLET (UD) PO SCH ×2 (10:04→22:07)
[2020-04-26] MEDS: ZINC SULFATE 220 MG CAPSULE (FP) PO SCH (10:04)
[2020-04-26] MEDS ORDERED: DEXTROSE 50%-WATER - 25 GM/50 ML VIAL IVPUSH ONE (11:00)
[2020-04-26] MEDS ORDERED: DEXTROSE 50%-WATER 25 GM/50 ML DISP.SYRIN ONE (11:18)
--- NOTE | 2020-04-26 11:30 | PN ---
Teaching Attending Note Name of Resident: Daysi Duncan ATTENDING PHYSICIAN STATEMENT I saw and evaluated the patient. I reviewed the resident's note and discussed the case with the resident. I agree with the resident's findings and plan as documented. SUBJECTIVE: Pt seen and examined in the ICU. s/p I&D. No further fevers. No shortness of breath or chest pain. Still with poor PO intake. OBJECTIVE: Vital Signs Period Temp Pulse Resp BP Sys/Lepe Pulse Ox Last 24 Hr 97.0 F-99.3 F 59-89 15-20 120-158/52-67 97-100 Intake & Output 04/23/20 04/24/20 04/25/20 04/26/20 23:59 23:59 23:59 23:59 Intake Total 3844 4260 1300 1400 Output Total 2400 0584 124 5481 Balance 1444 2660 700 50 Weight 67.7 kg 71.2 kg 72.802 kg 70.307 kg Gen: NAD at rest Heart: RRR Lung: decreased breath sounds at the bases Abd: soft, nontender Ext: no edema CBC, BMP 04/25/20 12:49 04/25/20 06:00 Active Medications Acetaminophen (Tylenol -) 650 mg PO Q6H PRN PRN Reason: Fever Last Admin: 04/26/20 06:06 Dose: 650 mg Documented by: Ascorbic Acid (Vitamin C -) 500 mg PO BID [facility] Last Admin: 04/26/20 10:04 Dose: 500 mg Documented by: Chlorhexidine Gluconate (Hibiclens For Decolonization -) 1 applic TP [facility] Last Admin: 04/25/20 22:30 Dose: 1 applic Documented by: Citalopram Hydrobromide (Celexa -) 20 mg PO [facility] Last Admin: 04/25/20 22:28 Dose: 20 mg Documented by: Piperacillin Sod/Tazobactam (Sod 4.5 gm/ Dextrose) 100 mls @ 200 mls/hr IVPB Q6H-IV JAYE; Protocol Last Admin: 04/26/20 10:03 Dose: 200 mls/hr Documented by: Lactated Ringer's (Lactated Ringers Solution) 1,000 ml in 1,000 mls @ 100 mls/hr IV ASDIR [facility] Last Admin: 04/25/20 13:59 Dose: Not Given Documented by: Daptomycin 500 mg/ Sodium (Chloride) 50 mls @ 50 mls/hr IVPB Q24H [facility]; Protocol Last Admin: 04/25/20 17:03 Dose: Not Given Documented by: Insulin Aspart (Novolog Vial Sliding Scale -) 1 vial SQ ACHS [facility]; Protocol Last Admin: 04/26/20 06:02 Dose: Not Given Documented by: Mirtazapine (Remeron -) 7.5 mg PO HS [facility] Last Admin: 04/25/20 22:28 Dose: 7.5 mg Documented by: Morphine Sulfate (Morphine Sulfate) 4 mg IVPUSH Q4H PRN PRN Reason: PAIN LEVEL 6-10 Last Admin: 04/25/20 10:07 Dose: 4 mg Documented by: Multivitamins/Minerals (Certavite-Antioxidant Liquid) 15 ml PO DAILY [facility] Last Admin: 04/26/20 10:03 Dose: 15 ml Documented by: Ondansetron HCl (Zofran Injection) 4 mg IVPUSH Q6H PRN PRN Reason: NAUSEA AND/OR VOMITING Pantoprazole Sodium (Protonix Packets For Oral Suspension -) 40 mg PO ACBK [facility] Last Admin: 04/26/20 06:06 Dose: 40 mg Documented by: Polyethylene Glycol (Miralax (For Daily Use) -) 17 gm PO BID [facility] Last Admin: 04/26/20 10:04 Dose: Not Given Documented by: Senna/Docusate Sodium (Pericolace -) 1 tablet PO BID [facility] Last Admin: 04/26/20 10:04 Dose: Not Given Documented by: Zinc Sulfate (Orazinc -) 220 mg PO DAILY [facility] Stop: 05/06/20 09:59 Last Admin: 04/26/20 10:04 Dose: 220 mg Documented by: ASSESSMENT AND PLAN: Lumbar Spinal Stenosis s/p Removal of L3-L5 hardware, including L4-L5 intervertebral cage, L3-S1 lami nectomy, L5-S1 PLIF, L3-S1 posterior instrumented spinal fusion 04/09/20 Wound Infection E Coli Bacteremia s/p I&D of the lumbar spine 04/18/20 s/p Wash out and VAC placement 04/20/20 s/p I&D/Wound vac exchange 04/23/20 s/p I&D 04/25/20 Hypertension Dementia Depression Anemia - monitor H/H - continue antibiotics - f/u cultures - pain control - incentive spirometry - PO as tolerated - enteral feeds - rehab/PT - DVT prophylaxis - disposition per surgery
[2020-04-26] MEDS: LACTATED RINGERS SOLUTION 1,000 ML/1,000 ML INFUS.BAG IV SCH (11:46)
[2020-04-26] MEDS: morphine SULFATE 4 MG/ML VIAL IVPUSH PRN (14:47)
--- NOTE | 2020-04-26 16:24 | PN ---
Physical Exam: SUBJECTIVE: Patient seen and examined. This afternoon she complained of low back pain and sensation of needing to have BM. She was medicated with good result. OBJECTIVE: Vital Signs Period Temp Pulse Resp BP Sys/Lepe Pulse Ox Last 24 Hr 97.0 F-99.3 F 59-83 15-20 120-164/52-115 98-100 GENERAL: The patient is awake, alert, in mild distress. HEAD: Normal with no signs of trauma. EYES: PERRL, extraocular movements intact, conjunctiva clear. ENT: Ears normal, nares patent, dry oral mucous membranes. NG tube in place. NECK: Trachea midline, full range of motion. LUNGS: Clear to auscultation anteriorly, no accessory muscle use. HEART: Regular rate and rhythm, no murmur appreciated. ABDOMEN: Soft, nontender, nondistended, normoactive bowel sounds. EXTREMITIES: Warm, well-perfused, no edema. Good ROM and strength in RUE and RLE, decreased ROM and strength in LUE, significantly weaker in LLE NEUROLOGICAL: Cranial nerves II through XII grossly intact. Normal speech. PSYCH: Normal mood, normal affect. SKIN: Warm, dry, normal turgor. Laboratory Results - last 24 hr 04/25/20 04/26/20 04/26/20 22:41 05:54 11:14 POC Glucometer 110 98 59 04/26/20 11:48 POC Glucometer 89 Active Medications Generic Name Dose Route Start Last Admin Trade Name Freq PRN Reason Stop Dose Admin Acetaminophen 650 mg 04/19/20 02:19 04/26/20 06:06 Tylenol - PO 650 mg Q6H PRN Administration Fever Ascorbic Acid 500 mg 04/21/20 22:00 04/26/20 10:04 Vitamin C - PO 500 mg BID JAYE Administration Chlorhexidine Gluconate 1 applic 04/20/20 22:00 04/25/20 22:30 Hibiclens For Decolonization - TP 1 applic HS JAYE Administration Citalopram Hydrobromide 20 mg 04/19/20 22:00 04/25/20 22:28 Celexa - PO 20 mg HS JAYE Administration Piperacillin Sod/Tazobactam 100 mls @ 200 mls/hr 04/19/20 21:00 04/26/20 15:52 Sod 4.5 gm/ Dextrose IVPB 200 mls/hr Q6H-IV JAYE Administration Protocol Lactated Ringer's 1,000 ml in 1,000 mls @ 100 mls/hr 04/23/20 11:15 04/26/20 11:46 Lactated Ringers Solution IV 100 mls/hr ASDIR JAYE Administration Daptomycin 500 mg/ Sodium 50 mls @ 50 mls/hr 04/23/20 16:00 04/25/20 17:03 Chloride IVPB Not Given Q24H JAYE Protocol Insulin Aspart 1 vial 04/25/20 16:30 04/26/20 11:46 Novolog Vial Sliding Scale - SQ Not Given ACHS JAYE Protocol Mirtazapine 7.5 mg 04/19/20 22:00 04/25/20 22:28 Remeron - PO 7.5 mg HS JAYE Administration Morphine Sulfate 4 mg 04/23/20 11:02 04/26/20 14:47 Morphine Sulfate IVPUSH 4 mg Q4H PRN Administration PAIN LEVEL 6-10 Multivitamins/Minerals 15 ml 04/23/20 12:45 04/26/20 10:03 Certavite-Antioxidant Liquid PO 15 ml DAILY JAYE Administration Ondansetron HCl 4 mg 04/20/20 16:17 Zofran Injection IVPUSH Q6H PRN NAUSEA AND/OR VOMITING Pantoprazole Sodium 40 mg 04/22/20 01:11 04/26/20 06:06 Protonix Packets For Oral Suspension - PO 40 mg ACBK JAYE Administration Polyethylene Glycol 17 gm 04/22/20 10:30 04/26/20 10:04 Miralax (For Daily Use) - PO Not Given BID JAYE Senna/Docusate Sodium 1 tablet 04/22/20 10:00 04/26/20 10:04 Pericolace - PO Not Given BID JAYE Zinc Sulfate 220 mg 04/22/20 10:00 04/26/20 10:04 Orazinc - PO 05/06/20 09:59 220 mg DAILY JAYE Administration ASSESSMENT/PLAN: Pt is a 79 y/o female with HTN, dementia, depression, spinal stenosis, and neuropathy with recent extensive lumbar back surgery (removal of hardware L3-L5 including L4-L5 intervertebral cage, inspection of fusion mass, L3-S1 laminectomies, L5-S1 PLIF, L3-S1 posterior instrumented spinal fusion) on 04/09/2020, s/p I&Ds as well as wash outs (04/18/20, 04/20/20, 04/23/20). #neuro -awake and oriented -left side weakness is not new symptom, has been present at least 2 months per patient #pulm -stable -incentive spirometer -keep O2 >90 #cardio -hemodynamically stable -monitor vitals -consider adding home meds if pt becomes hypertensive #renal -hypomagnesemia, resolved #ID -wound cx VRE, e.coli from 04/18 and 04/20; third cx prelim pseudomonas -Zosyn day 8 -daptomycin day 4 -ID following #MSK -wash out yesterday with closure of wound, drain 100cc overnight -morphine 4mg Q4H PRN #GI -needs increased nutrition given sepsis and low food intake recently -NG tube in place with feeds on -encourage PO intake -dietary following -GI consulted -bowel regimen -PEG will need to be considered for long-term nutrition- spoke to son today who will think about it, will reach out to him tomorrow for decision -zinc -vitamin C #psych -hx depression -mirtazipine -Celexa DVT Ppx SCDs GI Ppx Protonix FEN LR 100mL/hr monitor Mg Pivot dispo ICU Will need PEG for long-term nutrition. In contact with son to make final decision. FULL CODE Visit type - Emergency Visit Emergency Visit: Yes ED Registration Date: 04/09/20 Care time: The patient presented to the Emergency Department on the above date and was hospitalized for further evaluation of their emergent condition. - New Patient This patient is new to me today: No - Critical Care Critical Care patient: Yes Total Critical Care Time (in minutes): 36 Critical Care Statement: The care of this patient involved high complexity decision making to prevent further life threatening deterioration of the patient's condition and/or to evaluate & treat vital organ system(s) failure or risk of failure. - Medication Review Med list reviewed for High Risk Meds patients 65 and older: Yes ATTENDING PHYSICIAN STATEMENT I saw and evaluated the patient. I reviewed the resident's note and discussed the case with the resident. I agree with the resident's findings and plan as documented. SUBJECTIVE: OBJECTIVE: ASSESSMENT AND PLAN:
[2020-04-26] MEDS: DAPTOMYCIN 500 MG in SODIUM CHLORIDE 50 ML IVPB SCH (17:00)
[2020-04-26] MEDS ORDERED: LACTATED RINGERS SOLUTION 1,000 ML/1,000 ML INFUS.BAG IV SCH (18:20)
[2020-04-26] MEDS ORDERED: ONDANSETRON 4 MG/2 ML VIAL IVPUSH PRN (18:20)
[2020-04-26] MEDS ORDERED: ACETAMINOPHEN 325 MG TABLET (FP) PO PRN (18:20)
--- NOTE | 2020-04-26 21:07 | OP ---
DATE OF OPERATION: DATE OF DICTATION: 04/25/2020 SURGEON: Seth Cuenca MD GLUING MACHINE OPERATOR AUTOMATIC: None. PREOPERATIVE DIAGNOSIS: Septic spinal wound with wound VAC in situ. POSTOPERATIVE DIAGNOSIS: Septic spinal wound with wound VAC in situ. OPERATION PERFORMED: 1. Removal of wound VAC. 2. Incision, drainage, debridement, and irrigation deep lumbar spine wound abscess (subfascial). ([id number]) 3. Delayed primary closure; Complex wound closure, 4 layers, 21cm. ([id number] x 3) 4. Instillation of vancomycin powder into the wound itself. ANTIBIOTICS: Nil given as the patient is on IV antibiotics and is not appropriate timing. BLOOD LOSS: 50 mL. OPERATION DETAILS: Patient correctly identified. Brought into the operating room. She was under general anesthesia placed prone on a Bay frame. The original dressing was removed, the wound VAC identified. The sutures were removed. The skin was cleansed with Betadine scrub solution, wiped off with alcohol, DuraPrep applied. Once this had been performed, a sealed draping performed with U drapes. Time- out was called. Removal of the wound VAC revealed the presence of some necrotic material distally. The rest of the wound was angry, red, healthy, granulation tissue except for the fascia, which had this thickened, fibrinous, white appearance as was over the bone bed itself of the spinous processes above and below the decompression site. Using Leksell rongeur, the bone now was debrided down to healthy, bleeding bone. The fibrous aponeurosis sheath of the erector spinae was resected and the muscles fastidiously evaluated both left and right hand side from cranial to caudal as well as in deep space. Whatever appeared to be necrotic was resected. The wounds were then thoroughly lavaged with 5 L of saline. The hardware and the bone as well as muscle were then washed with Betadine scrub. A repeat 1-L washout then performed and then a 50/50 Betadine solution was placed into the wound and left for 3 minutes. This was then washed out. The tissues were cleansed with 5 L of saline at that point. Lautenbach sutures were applied vigorously from cranial to caudal part of the wound. These were vertical mattress Lautenbach sutures. Prior to tying of sutures, 1 g of vancomycin powder was crushed and sprinkled into the wound liberally from top to bottom. The Lautenbach sutures, which closed the muscle, fascia, subcutaneous tissue, and skin were then tied. The area between the Lautenbach sutures was closed with twan. A sealed dressing applied. Patient tolerated the procedure well. A 10/22 drain was placed into deep subfascial space. This will be most likely removed in the next 24-48 hours. Patient was returned to ICU. Nutritional augmentation has been advised and attended to. MD SHREYA Mcfarland/[id number] MTDD
[2020-04-26] MEDS: MIRTAZAPINE 15 MG TABLET (FP) PO SCH (22:08)
[2020-04-26] MEDS: CHLORHEXIDINE GLUCONATE 4% CLEANSER FOR DECOLONIZATION TP SCH (22:28)
[2020-04-26] MEDS: CITALOPRAM HYDROBROMIDE 20 MG TABLET PO SCH (22:28)
[2020-04-27] MEDS: PIPERACILLIN/TAZOB 4.5 GM 4.5 GM in DEXTROSE 5%-WATER 100 ML IVPB SCH ×4 (03:00→21:32)
[2020-04-27] MEDS: morphine SULFATE 4 MG/ML VIAL IVPUSH PRN ×2 (03:23→17:48)
[2020-04-27] MEDS ORDERED: ACETAMINOPHEN 1000 MG/100 ML VIAL (NON FORMULARY) IVPB PRN (04:15)
[2020-04-27] MEDS ORDERED: PIPERACILLIN/TAZOBACTAM 4.5 GM VIAL IVPB ONE ×4 (04:24→21:27)
[2020-04-27] MEDS ORDERED: DEXTROSE 5%-WATER 100 ML IVPB ONE ×4 (04:24→21:27)
[2020-04-27 06:31] LABS: BASO % 0.2 % (0-2.0); EOS % 1.7 % (0-4.5); LYMPH % 8.4 % (8-40); MCH 26.5 pg (25.7-33.7); MCHC 32.2 g/dl (32.0-36.0); MEAN CELL VOLUME 82.5 fl (80-96); MEAN PLT VOLUME 7.7 fl (7.5-11.1); MONO % 5.4 % (3.8-10.2); NEUT % 84.3 % (42.8-82.8); PLATELET COUNT 560 K/MM3 (134-434); RBC 3.39 M/mm3 (3.60-5.2); RDW 14.8 % (11.6-15.6); WHITE BLOOD COUNT 18.6 K/mm3 (4.0-10.0)
[2020-04-27] MEDS: INSULIN SLIDING SCALE (NOVOLOG) 1 VIAL SQ SCH ×4 (06:50→21:48)
[2020-04-27] MEDS ORDERED: PANTOPRAZOLE SOD 40 MG SUSPENSION PACKET PO SCH (07:00)
[2020-04-27 07:09] LABS: BLOOD UREA NITROGEN 14.4 mg/dL (7-18); CALCIUM 8.7 mg/dL (8.5-10.1); CREATININE 0.8 mg/dL (0.55-1.3); MAGNESIUM 1.9 mg/dL (1.8-2.4); PHOSPHOROUS 2.2 mg/dL (2.5-4.9); POTASSIUM 3.4 mmol/L (3.5-5.1)
[2020-04-27] MEDS ORDERED: POTASSIUM CHLORIDE ORAL LIQUID 20 MEQ/15 ML PO ONE (08:00)
[2020-04-27] MEDS ORDERED: POTASSIUM PHOSPHATE 15 MM in SODIUM CHLORIDE 250 ML IVPB ONE (09:00)
[2020-04-27] MEDS ORDERED: PT OWN MED DRAWER 7, Y5N ONE ×3 (09:06→21:27)
[2020-04-27] MEDS: POLYETHYLENE GLYCOL 3350 119 GM BTL PO SCH ×2 (09:20→21:37)
[2020-04-27] MEDS: SENNOSIDES/DOCUSATE COMBO (SENNA PLUS) TABLET (UD) PO SCH ×2 (09:21→21:37)
[2020-04-27] MEDS: ASCORBIC ACID 500 MG TABLET (FP) PO SCH ×2 (09:21→21:35)
[2020-04-27] MEDS ORDERED: ZINC SULFATE 220 MG CAPSULE (FP) PO SCH (10:00)
[2020-04-27] MEDS ORDERED: MULTIVIT-MINERALS ORAL LIQUID PO SCH (10:00)
--- NOTE | 2020-04-27 11:28 | PN ---
Physical Exam: TRANSFER SUMMARY Pt is a 79 y/o female with HTN, dementia, depression, spinal stenosis, and neuropathy with recent extensive lumbar back surgery (removal of hardware L3-L5 including L4-L5 intervertebral cage, inspection of fusion mass, L3-S1 laminectomies, L5-S1 PLIF, L3-S1 posterior instrumented spinal fusion) on 04/09/2020, s/p I&D with wash out 04/18/20, as well as wash outs and vac placement 04/20/20 and 04/23/20, and wash out with wound closure and vac removal 04/25/20. At baseline, she has been bed-bound for the last 8 years with 24 hour home care. Back pain have been well-controlled with Tylenol and morphine. She also reports intermittent abdominal pain Pt was initially given a short course of vancomycin prophylactically, and she was given Zosyn (started 04/19). Multiple wound cultures from her back grew VRE and E. coli. ID was consulted. Zosyn was continued and daptomycin initiated (on 04/23/20). There was concern for increasing left side weakness, especially hand offset pressman strength. The patient reported that this has been a problem for a couple months, and she has some ROM and strength in shoulder and elbow. CT head at admission did not show any acute pathology. Nutrition has also been a concern as pt was having limited PO intake at the beginning of admission, and positive nitrogen balance is required for adequate wound healing. Clinimix was initially given with encouraging PO intake. She was unable to take in 0340-[address] calories as requested by Dr. Cuenca, so an NG tube was placed and high protein feeds were started. Pt was able to take in limited amount of food with NG tube in place. A consult was placed for IR to place PEG tube as son is now in agreement for procedure. She is stable to be monitored in telemetry on the ICU unit. SUBJECTIVE: Patient seen and examined. She reports mild back pain but is not requesting medication at this time. She was able to tolerate PO. OBJECTIVE: Vital Signs Period Temp Pulse Resp BP Sys/Lepe Pulse Ox Last 24 Hr 97.6 F-98.0 F 69-107 15-22 113-164/47-115 100-100 GENERAL: The patient is awake, alert, in no distress. HEAD: Normal with no signs of trauma. EYES: PERRL, extraocular movements intact, conjunctiva clear. ENT: Ears normal, nares patent, dry oral mucous membranes. NG tube in place. NECK: Trachea midline, full range of motion. LUNGS: Clear to auscultation anteriorly, no accessory muscle use. HEART: Regular rate and rhythm, no murmur appreciated. ABDOMEN: Soft, nontender, nondistended, normoactive bowel sounds. EXTREMITIES: Warm, well-perfused, no edema. Good ROM and strength in RUE and RLE, decreased ROM and strength in LUE, significantly weaker in LLE NEUROLOGICAL: Cranial nerves II through XII grossly intact. Normal speech. PSYCH: Normal mood, normal affect. SKIN: Warm, dry, normal turgor. Laboratory Results - last 24 hr 04/26/20 04/26/20 04/27/20 11:48 17:32 06:00 WBC 18.6 H RBC 3.39 L Hgb 9.0 L Hct 28.0 L MCV 82.5 MCH 26.5 MCHC 32.2 RDW 14.8 Plt Count 560 H MPV 7.7 Absolute Neuts (auto) 15.7 H Neutrophils % 84.3 H Lymphocytes % 8.4 Monocytes % 5.4 Eosinophils % 1.7 Basophils % 0.2 Nucleated RBC % 0 Sodium Potassium Chloride Carbon Dioxide Anion Gap BUN Creatinine Est GFR (CKD-EPI)AfAm Est GFR (CKD-EPI)NonAf POC Glucometer 89 104 Random Glucose Calcium Phosphorus Magnesium 04/27/20 04/27/20 06:00 10:52 WBC RBC Hgb Hct MCV MCH MCHC RDW Plt Count MPV Absolute Neuts (auto) Neutrophils % Lymphocytes % Monocytes % Eosinophils % Basophils % Nucleated RBC % Sodium 142 Potassium 3.4 L Chloride 108 H Carbon Dioxide 28 Anion Gap 7 L BUN 14.4 Creatinine 0.8 Est GFR (CKD-EPI)AfAm 82.42 Est GFR (CKD-EPI)NonAf 71.11 POC Glucometer 124 Random Glucose 133 H Calcium 8.7 Phosphorus 2.2 L Magnesium 1.9 Active Medications Generic Name Dose Route Start Last Admin Trade Name Freq PRN Reason Stop Dose Admin Acetaminophen 650 mg 04/26/20 18:20 04/26/20 22:07 Tylenol - PO 650 mg Q6H PRN Administration Fever Acetaminophen 1,000 mg 04/27/20 04:15 04/27/20 04:42 Ofirmev Injection - IVPB 04/28/20 04:15 1,000 mg Q6H PRN Administration PAIN LEVEL 6-10 Ascorbic Acid 500 mg 04/26/20 22:00 04/27/20 09:21 Vitamin C - PO 500 mg BID JAYE Administration Chlorhexidine Gluconate 1 applic 04/26/20 22:00 04/26/20 22:28 Hibiclens For Decolonization - TP 1 applic HS JAYE Administration Citalopram Hydrobromide 20 mg 04/26/20 22:00 04/26/20 22:28 Celexa - PO 20 mg HS JAYE Administration Daptomycin 500 mg/ Sodium 50 mls @ 50 mls/hr 04/23/20 16:00 04/26/20 17:00 Chloride IVPB 50 mls/hr Q24H JAYE Administration Protocol Piperacillin Sod/Tazobactam 100 mls @ 200 mls/hr 04/26/20 21:00 04/27/20 08:43 Sod 4.5 gm/ Dextrose IVPB 200 mls/hr Q6H-IV JAYE Administration Protocol Lactated Ringer's 1,000 ml in 1,000 mls @ 100 mls/hr 04/26/20 18:20 04/26/20 22:26 Lactated Ringers Solution IV Not Given ASDIR [facility] Potassium Phosphate 15 mm/ 255 mls @ 63.75 mls/hr 04/27/20 09:00 04/27/20 09:19 Sodium Chloride IVPB 04/27/20 12:59 63.75 mls/hr ONCE ONE Administration Insulin Aspart 1 vial 04/25/20 16:30 04/27/20 10:54 Novolog Vial Sliding Scale - SQ Not Given ACHS [facility] Protocol Mirtazapine 7.5 mg 04/26/20 22:00 04/26/20 22:08 Remeron - PO 7.5 mg HS JAYE Administration Morphine Sulfate 4 mg 04/26/20 18:20 04/27/20 03:23 Morphine Sulfate IVPUSH 4 mg Q4H PRN Administration PAIN LEVEL 6-10 Multivitamins/Minerals 15 ml 04/27/20 10:00 04/27/20 09:20 Certavite-Antioxidant Liquid PO 15 ml DAILY JAYE Administration Pantoprazole Sodium 40 mg 04/27/20 07:00 04/27/20 06:51 Protonix Packets For Oral Suspension - PO 40 mg ACBK JAYE Administration Polyethylene Glycol 17 gm 04/26/20 22:00 04/27/20 09:20 Miralax (For Daily Use) - PO 17 grams BID JAYE Administration Senna/Docusate Sodium 1 tablet 04/26/20 22:00 04/27/20 09:21 Pericolace - PO 1 tablet BID JAYE Administration Zinc Sulfate 220 mg 04/27/20 10:00 04/27/20 09:21 Orazinc - PO 05/06/20 09:59 220 mg DAILY JAYE Administration Visit type - Emergency Visit Emergency Visit: Yes ED Registration Date: 04/09/20 Care time: The patient presented to the Emergency Department on the above date and was hospitalized for further evaluation of their emergent condition. - New Patient This patient is new to me today: No - Critical Care Critical Care patient: Yes Total Critical Care Time (in minutes): 36 Critical Care Statement: The care of this patient involved high complexity decision making to prevent further life threatening deterioration of the patient's condition and/or to evaluate & treat vital organ system(s) failure or risk of failure. - Medication Review Med list reviewed for High Risk Meds patients 65 and older: Yes ATTENDING PHYSICIAN STATEMENT I saw and evaluated the patient. I reviewed the resident's note and discussed the case with the resident. I agree with the resident's findings and plan as documented. SUBJECTIVE: OBJECTIVE: ASSESSMENT AND PLAN:
--- NOTE | 2020-04-27 13:22 | PN ---
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, Physician History of Present Illness: stable baseline dementia wbc still high washout done multiple organisms in the wound - Current Medication List Current Medications: Active Medications Acetaminophen (Tylenol -) 650 mg PO Q6H PRN PRN Reason: Fever Last Admin: 04/26/20 22:07 Dose: 650 mg Documented by: Acetaminophen (Ofirmev Injection -) 1,000 mg IVPB Q6H PRN PRN Reason: PAIN LEVEL 6-10 Stop: 04/28/20 04:15 Last Admin: 04/27/20 04:42 Dose: 1,000 mg Documented by: Ascorbic Acid (Vitamin C -) 500 mg PO BID [facility] Last Admin: 04/27/20 09:21 Dose: 500 mg Documented by: Chlorhexidine Gluconate (Hibiclens For Decolonization -) 1 applic TP [facility] Last Admin: 04/26/20 22:28 Dose: 1 applic Documented by: Citalopram Hydrobromide (Celexa -) 20 mg PO [facility] Last Admin: 04/26/20 22:28 Dose: 20 mg Documented by: Daptomycin 500 mg/ Sodium (Chloride) 50 mls @ 50 mls/hr IVPB Q24H [facility]; Protocol Last Admin: 04/26/20 17:00 Dose: 50 mls/hr Documented by: Piperacillin Sod/Tazobactam (Sod 4.5 gm/ Dextrose) 100 mls @ 200 mls/hr IVPB Q6H-IV JAYE; Protocol Last Admin: 04/27/20 08:43 Dose: 200 mls/hr Documented by: Lactated Ringer's (Lactated Ringers Solution) 1,000 ml in 1,000 mls @ 100 mls/hr IV ASDIR [facility] Last Admin: 04/26/20 22:26 Dose: Not Given Documented by: Insulin Aspart (Novolog Vial Sliding Scale -) 1 vial SQ [facility]; Protocol Last Admin: 04/27/20 10:54 Dose: Not Given Documented by: Mirtazapine (Remeron -) 7.5 mg PO [facility] Last Admin: 04/26/20 22:08 Dose: 7.5 mg Documented by: Morphine Sulfate (Morphine Sulfate) 4 mg IVPUSH Q4H PRN PRN Reason: PAIN LEVEL 6-10 Last Admin: 04/27/20 03:23 Dose: 4 mg Documented by: Multivitamins/Minerals (Certavite-Antioxidant Liquid) 15 ml PO DAILY [facility] Last Admin: 04/27/20 09:20 Dose: 15 ml Documented by: Pantoprazole Sodium (Protonix Packets For Oral Suspension -) 40 mg PO ACBK [facility] Last Admin: 04/27/20 06:51 Dose: 40 mg Documented by: Polyethylene Glycol (Miralax (For Daily Use) -) 17 gm PO BID [facility] Last Admin: 04/27/20 09:20 Dose: 17 grams Documented by: Senna/Docusate Sodium (Pericolace -) 1 tablet PO BID [facility] Last Admin: 04/27/20 09:21 Dose: 1 tablet Documented by: Zinc Sulfate (Orazinc -) 220 mg PO DAILY [facility] Stop: 05/06/20 09:59 Last Admin: 04/27/20 09:21 Dose: 220 mg Documented by: - Objective Vital Signs: Vital Signs Temperature 98.8 F 04/27/20 10:00 Pulse Rate 74 04/27/20 12:00 Respiratory Rate 18 04/27/20 12:00 Blood Pressure 146/57 L 04/27/20 12:00 O2 Sat by Pulse Oximetry (%) 100 04/27/20 12:00 Constitutional: Yes: Calm, Mild Distress Cardiovascular: Yes: S1, S2 Respiratory: Yes: Regular, Mechanically Ventilated, On Nasal O2 Gastrointestinal: Yes: Normal Bowel Sounds, Soft, Other (ng in place) Musculoskeletal: Yes: WNL Extremities: Yes: WNL Wound/Incision: Yes: Dressing Dry and Intact Neurological: Yes: Alert ...Motor Strength: RLE Labs: CBC, BMP 04/27/20 06:00 04/27/20 06:00 INR, PTT INR 1.25 (0.83-1.09) H 04/25/20 06:00 Assessment/Plan Problem List - Problems (1) Severe sepsis Code(s): A41.9 - SEPSIS, UNSPECIFIED ORGANISM; R65.20 - SEVERE SEPSIS WITHOUT SEPTIC SHOCK (2) Bacteremia due to Gram-negative bacteria Code(s): R78.81 - BACTEREMIA (3) Status post spinal surgery Code(s): Z98.890 - OTHER SPECIFIED POSTPROCEDURAL STATES (4) Toxic metabolic encephalopathy Code(s): G92 - TOXIC ENCEPHALOPATHY (5) Urinary tract infection Code(s): N39.0 - URINARY TRACT INFECTION, SITE NOT SPECIFIED Qualifiers: Urinary tract infection type: site unspecified Hematuria presence: without hematuria Qualified Code(s): N39.0 - Urinary tract infection, site not spe cified Assessment/Plan 79 y.o. female with PMH of dementia, HTN, depression, lumbar stenosis s/p laminectomy, neuropathy who underwent removal of L3-L5 hardware, L3-S1 l aminectomies, L5-S1 PLIF/L3-S1 PSIF on 04/09/20 and noted to develop fever up to 101.8F and increase in wbc to 16.8K along with lethargy and mild hypotension Severe Sepsis Gram negative/E. coli Bacteremia Pseudomonas UTI s/p lumbar wound I+D, s/p washout/wound vac placement plan continue iv abx as per icu close watch await for repeat cx washout cx to be send monitor wbc--starting to trend down monitor fevers cc 36 min
--- NOTE | 2020-04-27 13:44 | PN ---
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, [employer] - Note 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: Selected Entries 04/26/20 04/26/20 04/26/20 00:00 02:00 04:00 Breakfast Temperature Pulse Rate Blood Pressure O2 Sat by Pulse 100 100 100 Oximetry (%) Oxygen Delivery Method 04/26/20 04/26/20 04/26/20 06:00 09:30 10:30 Breakfast Temperature Pulse Rate Blood Pressure O2 Sat by Pulse 100 100 100 Oximetry (%) Oxygen Delivery Method 04/26/20 04/26/20 04/26/20 11:30 12:39 13:40 Breakfast Temperature Pulse Rate Blood Pressure O2 Sat by Pulse 100 100 100 Oximetry (%) Oxygen Delivery Method 04/26/20 04/26/20 04/26/20 14:40 16:00 17:42 Breakfast Temperature Pulse Rate Blood Pressure O2 Sat by Pulse 100 100 100 Oximetry (%) Oxygen Delivery Method 04/26/20 04/26/20 04/26/20 18:43 20:00 21:00 Breakfast Temperature Pulse Rate Blood Pressure O2 Sat by Pulse 100 100 100 Oximetry (%) Oxygen Delivery Nasal Cannula Method 04/26/20 04/27/20 04/27/20 22:00 00:00 02:00 Breakfast Temperature 97.6 F Pulse Rate 69 77 Blood Pressure 135/56 L 153/56 L O2 Sat by Pulse 100 100 100 Oximetry (%) Oxygen Delivery Method 04/27/20 04/27/20 04/27/20 04:00 06:00 08:00 Breakfast Temperature 97.7 F Pulse Rate 71 75 84 Blood Pressure 137/54 L 152/63 147/59 L O2 Sat by Pulse 100 100 100 Oximetry (%) Oxygen Delivery Method 04/27/20 04/27/20 04/27/20 08:53 10:00 12:00 Breakfast 50% Temperature 98.8 F Pulse Rate 88 74 Blood Pressure 157/64 146/57 L O2 Sat by Pulse 99 100 Oximetry (%) Oxygen Delivery Method Laboratory Tests 04/25/20 04/27/20 06:00 06:00 WBC 20.8 H 18.6 H Accepted/tolerated 50% of breakfast this am. TF supplemental. Encxourage Ensure pudding,Magic cup, 2 jailene HN for increased density of nutritional intake. If PEG placed, consider nocturnal TF and please continue PO trials of puree and nectar thick liquid.
--- NOTE | 2020-04-27 16:09 | PN ---
Teaching Attending Note Name of Resident: Corin Nick ATTENDING PHYSICIAN STATEMENT I saw and evaluated the patient. I reviewed the resident's note and discussed the case with the resident. I agree with the resident's findings and plan as documented. SUBJECTIVE: Patient seen and examined in the ICU. No further fevers. No shortness of breath or chest pain. Still with poor PO intake. NGT in place. OBJECTIVE: Intake & Output 04/24/20 04/25/20 04/26/20 04/27/20 23:59 23:59 23:59 23:59 Intake Total 4260 1300 3590 1840 Output Total 0697 969 4538 1350 Balance 2660 700 1840 490 Weight 156 lb 15.506 oz 160 lb 8 oz 162 lb 162 lb 7 oz Last Vital Signs Temp Pulse Resp BP Pulse Ox 98.2 F 78 18 148/60 100 04/27/20 14:00 04/27/20 14:00 04/27/20 14:00 04/27/20 14:00 04/27/20 12:00 Active Medications Acetaminophen (Tylenol -) 650 mg PO Q6H PRN PRN Reason: Fever Last Admin: 04/26/20 22:07 Dose: 650 mg Documented by: Acetaminophen (Ofirmev Injection -) 1,000 mg IVPB Q6H PRN PRN Reason: PAIN LEVEL 6-10 Stop: 04/28/20 04:15 Last Admin: 04/27/20 04:42 Dose: 1,000 mg Documented by: Amino Acids (Prosource No Carb Liquid Pkt) 30 ml PO DAILY [facility] Ascorbic Acid (Vitamin C -) 500 mg PO BID [facility] Last Admin: 04/27/20 09:21 Dose: 500 mg Documented by: Chlorhexidine Gluconate (Hibiclens For Decolonization -) 1 applic TP [facility] Last Admin: 04/26/20 22:28 Dose: 1 applic Documented by: Citalopram Hydrobromide (Celexa -) 20 mg PO [facility] Last Admin: 04/26/20 22:28 Dose: 20 mg Documented by: Daptomycin 500 mg/ Sodium (Chloride) 50 mls @ 50 mls/hr IVPB Q24H [facility]; Protocol Last Admin: 04/26/20 17:00 Dose: 50 mls/hr Documented by: Piperacillin Sod/Tazobactam (Sod 4.5 gm/ Dextrose) 100 mls @ 200 mls/hr IVPB Q6H-IV [facility]; Protocol Last Admin: 04/27/20 08:43 Dose: 200 mls/hr Documented by: Lactated Ringer's (Lactated Ringers Solution) 1,000 ml in 1,000 mls @ 100 mls/hr IV ASDIR [facility] Last Admin: 04/26/20 22:26 Dose: Not Given Documented by: Insulin Aspart (Novolog Vial Sliding Scale -) 1 vial SQ ACHS [facility]; Protocol Last Admin: 04/27/20 10:54 Dose: Not Given Documented by: Mirtazapine (Remeron -) 7.5 mg PO HS [facility] Last Admin: 04/26/20 22:08 Dose: 7.5 mg Documented by: Morphine Sulfate (Morphine Sulfate) 4 mg IVPUSH Q4H PRN PRN Reason: PAIN LEVEL 6-10 Last Admin: 04/27/20 03:23 Dose: 4 mg Documented by: Multivitamins/Minerals (Certavite-Antioxidant Liquid) 15 ml PO DAILY [facility] Last Admin: 04/27/20 09:20 Dose: 15 ml Documented by: Pantoprazole Sodium (Protonix Packets For Oral Suspension -) 40 mg PO ACBK [facility] Last Admin: 04/27/20 06:51 Dose: 40 mg Documented by: Polyethylene Glycol (Miralax (For Daily Use) -) 17 gm PO BID [facility] Last Admin: 04/27/20 09:20 Dose: 17 grams Documented by: Senna/Docusate Sodium (Pericolace -) 1 tablet PO BID [facility] Last Admin: 04/27/20 09:21 Dose: 1 tablet Documented by: Zinc Sulfate (Orazinc -) 220 mg PO DAILY [facility] Stop: 05/06/20 09:59 Last Admin: 04/27/20 09:21 Dose: 220 mg Documented by: Gen: NAD at rest Heart: RRR Lung: decreased breath sounds at the bases Abd: soft, nontender Ext: no edema Laboratory Results - last 24 hr 04/26/20 04/27/20 04/27/20 17:32 06:00 06:00 WBC 18.6 H RBC 3.39 L Hgb 9.0 L Hct 28.0 L MCV 82.5 MCH 26.5 MCHC 32.2 RDW 14.8 Plt Count 560 H MPV 7.7 Absolute Neuts (auto) 15.7 H Neutrophils % 84.3 H Lymphocytes % 8.4 Monocytes % 5.4 Eosinophils % 1.7 Basophils % 0.2 Nucleated RBC % 0 Sodium 142 Potassium 3.4 L Chloride 108 H Carbon Dioxide 28 Anion Gap 7 L BUN 14.4 Creatinine 0.8 Est GFR (CKD-EPI)AfAm 82.42 Est GFR (CKD-EPI)NonAf 71.11 POC Glucometer 104 Random Glucose 133 H Calcium 8.7 Phosphorus 2.2 L Magnesium 1.9 04/27/20 10:52 WBC RBC Hgb Hct MCV MCH MCHC RDW Plt Count MPV Absolute Neuts (auto) Neutrophils % Lymphocytes % Monocytes % Eosinophils % Basophils % Nucleated RBC % Sodium Potassium Chloride Carbon Dioxide Anion Gap BUN Creatinine Est GFR (CKD-EPI)AfAm Est GFR (CKD-EPI)NonAf POC Glucometer 124 Random Glucose Calcium Phosphorus Magnesium ASSESSMENT AND PLAN: Lumbar Spinal Stenosis s/p Removal of L3-L5 hardware, including L4-L5 intervertebral cage, L3-S1 la minectomy, L5-S1 PLIF, L3-S1 posterior instrumented spinal fusion 04/09/20 Wound Infection E Coli Bacteremia s/p I&D of the lumbar spine 04/18/20 s/p Wash out and VAC placement 04/20/20 s/p I&D/Wound vac exchange 04/23/20 s/p I&D 04/25/20 Hypertension Dementia Depression Anemia - monitor H/H - continue antibiotics per ID - pain control - incentive spirometry - enteral feeds / nutritional support - rehab/PT - DVT prophylaxis - disposition per surgery Dr Almazan
--- NOTE | 2020-04-27 16:11 | PN ---
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 (short form) - Note 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: Asked by attending Dr Cuenca to change pts dressing. Dressing changed to Aquacel Pt noted to have diaper full of stool within close proximity of wound Recommend frequent checks for stool and peroneal hygiene to prevent recurrent wound infection d/w attending Dr Cuenca
--- NOTE | 2020-04-27 16:45 | HOSP ---
Subjective - Review of Symptoms Events since last encounter: ACCEPTANCE NOTE Pt seen and assessed at bedside in ICU. POD2 s/p back surgery (s/p Removal of L3-L5 hardware, including L4-L5 intervertebral cage, L3-S1 laminectomy, L5-S1 PLIF, L3-S1 posterior instrumented spinal fusion 04/09/20), multiple wash out, most recent 2 days ago, s/p sepsis 2/2 to VRE. Seen stable, NAD, AAOx3. Pt stable for transfer from ICU to med-surg. General: No: Other HEENT: No: Head Aches, Visual Changes Cardiovascular: No: Chest Pain, Light Headedness Gastrointestinal: No: Nausea, Vomiting, Abdominal Pain, Diarrhea Genitourinary: No: Dysuria, Frequency, Incontinence, Hematuria Musculoskeletal: Yes: Back Pain, Decreased ROM. No: Extremity Pain, Joint Pain Neurological: Yes: Numbness. No: Weakness, Change in speech Physical Examination Vital Signs: Vital Signs Temperature 98.2 F 04/27/20 14:00 Pulse Rate 78 04/27/20 14:00 Respiratory Rate 18 04/27/20 14:00 Blood Pressure 148/60 04/27/20 14:00 O2 Sat by Pulse Oximetry (%) 100 04/27/20 12:00 Constitutional: Yes: Thin. No: Well Nourished, Anxious Eyes: Yes: WNL, EOM Intact, PERRL HENT: Yes: WNL, Atraumatic, Normocephalic Neck: Yes: Supple Cardiovascular: Yes: WNL, Regular Rate and Rhythm. No: Gallop, Murmur, Rub Respiratory: Yes: CTA Bilaterally Gastrointestinal: Yes: WNL, Normal Bowel Sounds, Soft. No: Distention, Tenderness Extremities: Yes: WNL (Left sided weakness. LUE strength 3/5, sensation 4/5. LLE Strenght 4/5, sensation 4/5.) Neurological: Yes: WNL, Alert, Oriented Labs: CBC, BMP 04/27/20 06:00 04/27/20 06:00 Visit type - Medication Review Med list reviewed for High Risk Meds patients 65 and older: Yes - Emergency Visit Emergency Visit: Yes ED Registration Date: 04/09/20 Care time: The patient presented to the Emergency Department on the above date and was hospitalized for further evaluation of their emergent condition. - New Patient This patient is new to me today: No - Critical Care Critical Care patient: No
[2020-04-27] MEDS: AMINO ACIDS/PROTEIN HYDROLYS 30 ML LIQUID.PKT PO SCH (17:26)
[2020-04-27] MEDS: DAPTOMYCIN 500 MG in SODIUM CHLORIDE 50 ML IVPB SCH (17:26)
[2020-04-27] MEDS: MIRTAZAPINE 15 MG TABLET (FP) PO SCH (21:35)
[2020-04-27] MEDS: CHLORHEXIDINE GLUCONATE 4% CLEANSER FOR DECOLONIZATION TP SCH (21:37)
[2020-04-27] MEDS: CITALOPRAM HYDROBROMIDE 20 MG TABLET PO SCH (22:33)
[2020-04-28] MEDS ORDERED: DEXTROSE 5%-WATER 100 ML IVPB ONE ×4 (01:45→20:53)
[2020-04-28] MEDS ORDERED: PIPERACILLIN/TAZOBACTAM 4.5 GM VIAL IVPB ONE ×4 (01:45→20:52)
[2020-04-28] MEDS ORDERED: ACETAMINOPHEN 1000 MG/100 ML VIAL (NON FORMULARY) IVPB PRN (01:55)
[2020-04-28] MEDS ORDERED: ACETAMINOPHEN 325 MG TABLET (FP) PO PRN (01:55)
[2020-04-28] MEDS: PIPERACILLIN/TAZOB 4.5 GM 4.5 GM in DEXTROSE 5%-WATER 100 ML IVPB SCH ×4 (02:08→21:11)
[2020-04-28] MEDS: PANTOPRAZOLE SOD 40 MG SUSPENSION PACKET PO SCH (06:01)
[2020-04-28] MEDS: INSULIN SLIDING SCALE (NOVOLOG) 1 VIAL SQ SCH ×4 (06:01→21:15)
[2020-04-28 06:44] LABS: BASO % 0.4 % (0-2.0); EOS % 2.6 % (0-4.5); HEMATOCRIT 30.4 % (32.4-45.2); HEMOGLOBIN 9.8 GM/dL (10.7-15.3); LYMPH % 8.8 % (8-40); MCH 26.7 pg (25.7-33.7); MCHC 32.1 g/dl (32.0-36.0); MEAN CELL VOLUME 83.4 fl (80-96); MEAN PLT VOLUME 7.9 fl (7.5-11.1); MONO % 5.5 % (3.8-10.2); NEUT % 82.7 % (42.8-82.8); PLATELET COUNT 562 K/MM3 (134-434); RBC 3.65 M/mm3 (3.60-5.2); RDW 14.9 % (11.6-15.6); WHITE BLOOD COUNT 18.6 K/mm3 (4.0-10.0)
--- NOTE | 2020-04-28 08:40 | PN ---
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, Physician Chief Complaint: Pt seen and assessed at bedside in ICU. s/p back surgery (s/p Removal of L3-L5 hardware, including L4-L5 intervertebral cage, L3-S1 laminectomy, L5-S1 PLIF, L3-S1 posterior instrumented spinal fusion 04/09/20), multiple wash out, most recent 2 days ago, s/p sepsis 2/2 to VRE is doing well no pain, no fever, no chills, . - Current Medication List Current Medications: Active Medications Acetaminophen (Tylenol -) 650 mg PO Q6H PRN PRN Reason: Fever Amino Acids (Prosource No Carb Liquid Pkt) 30 ml PO DAILY [facility] Last Admin: 04/27/20 17:26 Dose: 30 ml Documented by: Ascorbic Acid (Vitamin C -) 500 mg PO BID [facility] Citalopram Hydrobromide (Celexa -) 20 mg PO HS [facility] Daptomycin 500 mg/ Sodium (Chloride) 50 mls @ 50 mls/hr IVPB Q24H [facility]; Protocol Piperacillin Sod/Tazobactam (Sod 4.5 gm/ Dextrose) 100 mls @ 200 mls/hr IVPB Q6H-IV [facility]; Protocol Last Admin: 04/28/20 02:08 Dose: 200 mls/hr Documented by: Insulin Aspart (Novolog Vial Sliding Scale -) 1 vial SQ ACHS [facility]; Protocol Last Admin: 04/28/20 06:01 Dose: Not Given Documented by: Mirtazapine (Remeron -) 7.5 mg PO HS [facility] Morphine Sulfate (Morphine Sulfate) 4 mg IVPUSH Q4H PRN PRN Reason: PAIN LEVEL 6-10 Multivitamins/Minerals (Certavite-Antioxidant Liquid) 15 ml PO DAILY [facility] Pantoprazole Sodium (Protonix Packets For Oral Suspension -) 40 mg PO ACBK [facility] Last Admin: 04/28/20 06:01 Dose: 40 mg Documented by: Polyethylene Glycol (Miralax (For Daily Use) -) 17 gm PO BID [facility] Senna/Docusate Sodium (Pericolace -) 1 tablet PO BID [facility] Zinc Sulfate (Orazinc -) 220 mg PO DAILY [facility] Stop: 05/06/20 09:59 - Objective Vital Signs: Vital Signs Temperature 98.8 F 04/28/20 05:05 Pulse Rate 87 04/28/20 05:05 Respiratory Rate 20 20 05:05 Blood Pressure 160/80 04/28/20 05:05 O2 Sat by Pulse Oximetry (%) 93 L 04/28/20 05:05 Constitutional: Yes: Well Nourished, No Distress, Calm Eyes: Yes: Conjunctiva Clear, EOM Intact HENT: Yes: Atraumatic, Normocephalic Neck: Yes: Supple, Trachea Midline Cardiovascular: Yes: Regular Rate and Rhythm Respiratory: Yes: Regular, CTA Bilaterally Gastrointestinal: Yes: Normal Bowel Sounds, Soft Extremities: Yes: WNL Edema: No Neurological: Yes: Other (Warm, well-perfused, no edema. Good ROM and strength in RUE and RLE, decreased ROM and strength in LUE, significantly weaker in LLE) ...Motor Strength: WNL Labs: CBC, BMP 04/28/20 05:24 04/27/20 06:00 INR, PTT INR 1.25 (0.83-1.09) H 04/25/20 06:00 Impression/Plan Impression/Plan: ASSESSMENT/PLAN: Pt is a 79 y/o female with HTN, dementia, depression, spinal stenosis, and neuropathy with recent extensive lumbar back surgery (removal of hardware L3-L5 including L4-L5 intervertebral cage, inspection of fusion mass, L3-S1 laminectomies, L5-S1 PLIF, L3-S1 posterior instrumented spinal fusion) on 04/09/2020, s/p I&Ds as well as wash outs (04/18/20, 04/20/20, 04/23/20). sepsis -wound cx VRE, e.coli from 04/18 and 04/20; third cx prelim pseudomonas -on Zosyn ID following - s/p closure of wound, -morphine 4mg Q4H PRN #GI on -NG tube in place with feeds on -encourage PO intake -for PEG on Thursday, -zinc -vitamin C #psych -hx depression -mirtazipine -Celexa # htn uncontrolled, will start low dose of the amlodipine, monitor, DVT Ppx Visit type - Emergency Visit Emergency Visit: No - New Patient This patient is new to me today: Yes Date on this admission: 04/28/20 - Critical Care Critical Care patient: No - Discharge Referral Referred to [facility] No - Medication Review Med list reviewed for High Risk Meds patients 65 and older: Yes
[2020-04-28] MEDS ORDERED: PT OWN MED DRAWER 7, Y5N ONE ×2 (09:04→10:13)
[2020-04-28] MEDS: SENNOSIDES/DOCUSATE COMBO (SENNA PLUS) TABLET (UD) PO SCH ×2 (10:06→21:13)
[2020-04-28] MEDS: POLYETHYLENE GLYCOL 3350 119 GM BTL PO SCH ×2 (10:06→21:13)
[2020-04-28] MEDS: ASCORBIC ACID 500 MG TABLET (FP) PO SCH ×2 (10:11→21:12)
[2020-04-28] MEDS: ZINC SULFATE 220 MG CAPSULE (FP) PO SCH (10:11)
[2020-04-28] MEDS: AMINO ACIDS/PROTEIN HYDROLYS 30 ML LIQUID.PKT PO SCH (10:11)
[2020-04-28] MEDS: MULTIVIT-MINERALS ORAL LIQUID PO SCH (10:22)
--- NOTE | 2020-04-28 10:52 | PN ---
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, Physician History of Present Illness: stable baseline dementia no new issues - Current Medication List Current Medications: Active Medications Acetaminophen (Tylenol -) 650 mg PO Q6H PRN PRN Reason: Fever Amino Acids (Prosource No Carb Liquid Pkt) 30 ml PO DAILY [facility] Last Admin: 04/28/20 10:11 Dose: 30 ml Documented by: Ascorbic Acid (Vitamin C -) 500 mg PO BID [facility] Last Admin: 04/28/20 10:11 Dose: 500 mg Documented by: Citalopram Hydrobromide (Celexa -) 20 mg PO HS [facility] Daptomycin 500 mg/ Sodium (Chloride) 50 mls @ 50 mls/hr IVPB Q24H [facility]; Protocol Piperacillin Sod/Tazobactam (Sod 4.5 gm/ Dextrose) 100 mls @ 200 mls/hr IVPB Q6H-IV [facility]; Protocol Last Admin: 04/28/20 10:05 Dose: 200 mls/hr Documented by: Insulin Aspart (Novolog Vial Sliding Scale -) 1 vial SQ ACHS [facility]; Protocol Last Admin: 04/28/20 06:01 Dose: Not Given Documented by: Mirtazapine (Remeron -) 7.5 mg PO HS [facility] Morphine Sulfate (Morphine Sulfate) 4 mg IVPUSH Q4H PRN PRN Reason: PAIN LEVEL 6-10 Multivitamins/Minerals (Certavite-Antioxidant Liquid) 15 ml PO DAILY [facility] Last Admin: 04/28/20 10:22 Dose: 15 ml Documented by: Pantoprazole Sodium (Protonix Packets For Oral Suspension -) 40 mg PO ACBK [facility] Last Admin: 04/28/20 06:01 Dose: 40 mg Documented by: Polyethylene Glycol (Miralax (For Daily Use) -) 17 gm PO BID [facility] Last Admin: 04/28/20 10:06 Dose: Not Given Documented by: Senna/Docusate Sodium (Pericolace -) 1 tablet PO BID [facility] Last Admin: 04/28/20 10:06 Dose: Not Given Documented by: Zinc Sulfate (Orazinc -) 220 mg PO DAILY [facility] Stop: 05/06/20 09:59 Last Admin: 04/28/20 10:11 Dose: 220 mg Documented by: - Objective Vital Signs: Vital Signs Temperature 98.7 F 04/28/20 09:00 Pulse Rate 82 04/28/20 09:00 Respiratory Rate 20 07/25/20 09:00 Blood Pressure 166/76 04/28/20 09:00 O2 Sat by Pulse Oximetry (%) 100 04/28/20 09:00 Constitutional: Yes: No Distress, Calm Cardiovascular: Yes: S1, S2 Respiratory: Yes: Regular, CTA Bilaterally Gastrointestinal: Yes: Normal Bowel Sounds, Soft Musculoskeletal: Yes: WNL, Other Extremities: Yes: Other Wound/Incision: Yes: Dressing Dry and Intact Neurological: Yes: Alert, Oriented Labs: CBC, BMP 04/28/20 05:24 04/27/20 06:00 INR, PTT INR 1.25 (0.83-1.09) H 04/25/20 06:00 Assessment/Plan Problem List - Problems (1) Severe sepsis Code(s): A41.9 - SEPSIS, UNSPECIFIED ORGANISM; R65.20 - SEVERE SEPSIS WITHOUT SEPTIC SHOCK (2) Bacteremia due to Gram-negative bacteria Code(s): R78.81 - BACTEREMIA (3) Status post spinal surgery Code(s): Z98.890 - OTHER SPECIFIED POSTPROCEDURAL STATES (4) Toxic metabolic encephalopathy Code(s): G92 - TOXIC ENCEPHALOPATHY (5) Urinary tract infection Code(s): N39.0 - URINARY TRACT INFECTION, SITE NOT SPECIFIED Qualifiers: Urinary tract infection type: site unspecified Hematuria presence: without hematuria Qualified Code(s): N39.0 - Urinary tract infection, site not specified Assessment/Plan 79 y.o. female with PMH of dementia, HTN, depression, lumbar stenosis s/p laminectomy, neuropathy who underwent removal of L3-L5 hardware, L3-S1 laminectomies, L5-S1 PLIF/L3-S1 PSIF on 04/09/20 and noted to develop fever up to 101.8F and increase in wbc to 16.8K along with lethargy and mild hypotension Severe Sepsis Gram negative/E. coli Bacteremia Pseudomonas UTI s/p lumbar wound I+D, s/p washout/wound vac placement plan abx adjusted cx reports noted wound care rest as per the team
[2020-04-28] MEDS ORDERED: POTASSIUM CHLORIDE ORAL LIQUID 20 MEQ/15 ML PO ONE (14:14)
[2020-04-28] MEDS: amLODIPine BESYLATE 2.5 MG TABLET (FP) PO SCH (14:51)
[2020-04-28] MEDS: DAPTOMYCIN 500 MG in SODIUM CHLORIDE 50 ML IVPB SCH (16:43)
[2020-04-28] MEDS: CITALOPRAM HYDROBROMIDE 20 MG TABLET PO SCH (21:12)
[2020-04-28] MEDS: MIRTAZAPINE 15 MG TABLET (FP) PO SCH (21:12)
[2020-04-28] MEDS ORDERED: CHLORHEXIDINE GLUCONATE 4% CLEANSER FOR DECOLONIZATION TP SCH (22:00)
[2020-04-29] MEDS ORDERED: PIPERACILLIN/TAZOBACTAM 4.5 GM VIAL IVPB ONE ×2 (02:10→08:51)
[2020-04-29] MEDS ORDERED: DEXTROSE 5%-WATER 100 ML IVPB ONE ×5 (02:11→17:12)
[2020-04-29] MEDS: PIPERACILLIN/TAZOB 4.5 GM 4.5 GM in DEXTROSE 5%-WATER 100 ML IVPB SCH ×2 (02:21→08:57)
[2020-04-29] MEDS: PANTOPRAZOLE SOD 40 MG SUSPENSION PACKET PO SCH (05:59)
[2020-04-29] MEDS: INSULIN SLIDING SCALE (NOVOLOG) 1 VIAL SQ SCH ×4 (05:59→22:01)
[2020-04-29 07:49] LABS: BASO % 1.5 % (0-2.0); EOS % 2.6 % (0-4.5); HEMATOCRIT 29.1 % (32.4-45.2); HEMOGLOBIN 9.4 GM/dL (10.7-15.3); LYMPH % 12.5 % (8-40); MCH 26.9 pg (25.7-33.7); MCHC 32.4 g/dl (32.0-36.0); MEAN CELL VOLUME 83.1 fl (80-96); MEAN PLT VOLUME 7.8 fl (7.5-11.1); MONO % 4.5 % (3.8-10.2); NEUT % 78.9 % (42.8-82.8); PLATELET COUNT 520 K/MM3 (134-434); RDW 14.8 % (11.6-15.6); WHITE BLOOD COUNT 16.1 K/mm3 (4.0-10.0)
[2020-04-29 08:07] LABS: ALBUMIN 1.7 g/dl (3.4-5.0); BILIRUBIN,TOTAL 0.4 mg/dL (0.2-1); BLOOD UREA NITROGEN 13.2 mg/dL (7-18); CALCIUM 8.9 mg/dL (8.5-10.1); CREATININE 0.8 mg/dL (0.55-1.3); POTASSIUM 4.3 mmol/L (3.5-5.1); TOT PROT 5.8 g/dl (6.4-8.2)
[2020-04-29] MEDS ORDERED: PT OWN MED DRAWER 7, Y5N ONE ×2 (08:51→09:58)
[2020-04-29] MEDS: MULTIVIT-MINERALS ORAL LIQUID PO SCH (10:02)
[2020-04-29] MEDS: amLODIPine BESYLATE 2.5 MG TABLET (FP) PO SCH (10:03)
[2020-04-29] MEDS: AMINO ACIDS/PROTEIN HYDROLYS 30 ML LIQUID.PKT PO SCH (10:03)
[2020-04-29] MEDS: POLYETHYLENE GLYCOL 3350 119 GM BTL PO SCH (10:03)
[2020-04-29] MEDS: SENNOSIDES/DOCUSATE COMBO (SENNA PLUS) TABLET (UD) PO SCH (10:03)
[2020-04-29] MEDS: ZINC SULFATE 220 MG CAPSULE (FP) PO SCH (10:03)
[2020-04-29] MEDS: ASCORBIC ACID 500 MG TABLET (FP) PO SCH ×2 (10:04→21:54)
[2020-04-29] MEDS ORDERED: MEROPENEM 1 GM VIAL (RESTRICTED TO ID) IVPB ONE ×3 (10:29→17:12)
[2020-04-29] MEDS: MEROPENEM 1 GM in DEXTROSE 5%-WATER 100 ML IVPB SCH ×2 (10:34→17:08)
--- NOTE | 2020-04-29 10:35 | PN ---
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, Physician History of Present Illness: seen and examined at bedside during my rounds. She endorses some pain and muscle tightness at the area of the incision on the back. she is tolerating diet. NG tube removed by patient accidentally last night. She is tolerating solid foods. She denies nausea vomiting fever chills chest pain or SOB. She is to go to IR for PEG tomorrow. Had diarrhea last night and C. Diff and stool studies sent which are pending. Diarrhea has since resolved. Likely secondary to stool softeners/laxatives which are held by RN. Tmax 99.2 yesterday around 530pm. Wound culture from 04/23/2020 growing pseudomonas which is resistant to Zosyn which the patient is on and VRE sensitive to daptomycin which the patient is on. Left message for Dr. Frankel from ID. - Current Medication List Current Medications: Active Medications Acetaminophen (Tylenol -) 650 mg PO Q6H PRN PRN Reason: Fever Amino Acids (Prosource No Carb Liquid Pkt) 30 ml PO DAILY [facility] Last Admin: 04/29/20 10:03 Dose: 30 ml Documented by: Amlodipine Besylate (Norvasc -) 2.5 mg PO DAILY [facility] Last Admin: 04/29/20 10:03 Dose: 2.5 mg Documented by: Ascorbic Acid (Vitamin C -) 500 mg PO BID [facility] Last Admin: 04/29/20 10:04 Dose: 500 mg Documented by: Citalopram Hydrobromide (Celexa -) 20 mg PO [facility] Last Admin: 04/28/20 21:12 Dose: 20 mg Documented by: Daptomycin 500 mg/ Sodium (Chloride) 50 mls @ 50 mls/hr IVPB Q24H [facility]; Protocol Last Admin: 04/28/20 16:43 Dose: 50 mls/hr Documented by: Meropenem 1 gm/ Dextrose 100 mls @ 200 mls/hr IVPB Q8H-IV [facility] Meropenem 1 gm/ Dextrose 100 mls @ 200 mls/hr IVPB Q8H-IV [facility] Stop: 04/30/20 02:29 Insulin Aspart (Novolog Vial Sliding Scale -) 1 vial SQ ACHS [facility]; Protocol Last Admin: 04/29/20 05:59 Dose: Not Given Documented by: Mirtazapine (Remeron -) 7.5 mg PO [facility] Last Admin: 04/28/20 21:12 Dose: 7.5 mg Documented by: Morphine Sulfate (Morphine Sulfate) 4 mg IVPUSH Q4H PRN PRN Reason: PAIN LEVEL 6-10 Multivitamins/Minerals (Certavite-Antioxidant Liquid) 15 ml PO DAILY [facility] Last Admin: 04/29/20 10:02 Dose: 15 ml Documented by: Pantoprazole Sodium (Protonix Packets For Oral Suspension -) 40 mg PO ACBK [facility] Last Admin: 04/29/20 05:59 Dose: 40 mg Documented by: Polyethylene Glycol (Miralax (For Daily Use) -) 17 gm PO BID [facility] Last Admin: 04/29/20 10:03 Dose: Not Given Documented by: Senna/Docusate Sodium (Pericolace -) 1 tablet PO BID [facility] Last Admin: 04/29/20 10:03 Dose: Not Given Documented by: Zinc Sulfate (Orazinc -) 220 mg PO DAILY [facility] Stop: 05/06/20 09:59 Last Admin: 04/29/20 10:03 Dose: 220 mg Documented by: - Objective Vital Signs: Vital Signs Temperature 98.8 F 04/29/20 05:52 Pulse Rate 78 04/29/20 05:52 Respiratory Rate 20 04/29/20 05:52 Blood Pressure 132/66 04/29/20 05:52 O2 Sat by Pulse Oximetry (%) 98 04/28/20 22:00 Constitutional: Yes: No Distress, tired appearing. Eyes: Yes: Other (conjunctival pallor) HENT: Yes: Other (moist oral mucosa) Cardiovascular: Yes: Regular Rate and Rhythm Respiratory: Yes: faint crackles (bilaterally at the bases.) Gastrointestinal: Yes: WNL, Normal Bowel Sounds, Soft. No: Distention, Tenderness Edema: No Wound/Incision: Yes: Other (patient will not let me examine her back. serosangenous drainage...more serous per RN Dr. Joellen mendez.) Neurological: Yes: Alert, ill and tired appearing. answers questions with her eyes closed. Follows Commands. Does not know month or year. Thinks she is at [facility]. Thinks she is in [facility]. Oriented to self. Knows . Patient not participating in neuro exam. able to lift both arms. Sensation intact globally. Drain has small amount of serosangenous drainage. Labs: CBC, BMP 04/29/20 05:50 04/29/20 05:50 INR, PTT INR 1.25 (0.83-1.09) H 04/25/20 06:00 Impression/Plan Impression/Plan: Patient is a 79 year old female with history of hypertension, dementia, depression, spinal stenosis, neuropathy POD#20 s/p removal of L3-L5 hardware, including L4-L5 intervertebral cage, L3-S1 laminectomy, L5-S1 PLIF, L3-S1 posterior instrumented spinal fusion. s/p multiple washouts and I&Ds as well. spinal stenosis POD #20 s/p removal of L3-L5 hardware, including L4-L5 intervertebral cage, L3-S1 laminectomy, L5-S1 PLIF, L3-S1 posterior instrumented spinal fusion. s/p multiple washouts. pain control monitor output of drain. To be d/c'ed cruz by spine surgery per RN. monitor CBC. Hb stable at 9.4 today. Transfuse PRN Physical therapy Zofran PRN nausea Patient to go for G tube tomorrow with IR per chart and RN. NPO past midnight. History of dementia, depression Continue home Mirtazapine, Citalopram Sepsis secondary to infected wound/hardware Wound culture from 04/23/2020 grew pseudomonas resistant to zosyn and VRE sentivi e to daptomycin. Continue daptomycin Meropenem ordered. Reached out to ID-Dr. Frankel agrees with changes. leukocytosis improving and WBC count is 16.1 today down from 18.6 yesterday. for diarrhea f/u C. Diff and stool studies. Patient has been on ABx for a prolonged period of time. History of hypertension acceptable on 2.5mg po amlodipine daily. Prophylaxis DVT PPx with SCDs on bilateral lower extremities GI PPx for stress ulcer PPx with protonix NPO past midnight for G tube by IR tomorrow for supplemental nutrition. Visit type - Emergency Visit Emergency Visit: No - New Patient This patient is new to me today: No - Critical Care Critical Care patient: No - Medication Review Med list reviewed for High Risk Meds patients 65 and older: Yes
[2020-04-29] MEDS ORDERED: POLYETHYLENE GLYCOL 3350 119 GM BTL PO PRN (10:52)
[2020-04-29] MEDS ORDERED: SENNOSIDES/DOCUSATE COMBO (SENNA PLUS) TABLET (UD) PO PRN (10:55)
[2020-04-29] MEDS: DAPTOMYCIN 500 MG in SODIUM CHLORIDE 50 ML IVPB SCH (15:11)
[2020-04-29] MEDS: CITALOPRAM HYDROBROMIDE 20 MG TABLET PO SCH (21:54)
[2020-04-29] MEDS: MIRTAZAPINE 15 MG TABLET (FP) PO SCH (21:54)
[2020-04-30] MEDS ORDERED: MEROPENEM 1 GM VIAL (RESTRICTED TO ID) IVPB ONE ×3 (01:05→16:23)
[2020-04-30] MEDS ORDERED: DEXTROSE 5%-WATER 100 ML IVPB ONE ×3 (01:05→16:23)
[2020-04-30] MEDS: MEROPENEM 1 GM in DEXTROSE 5%-WATER 100 ML IVPB SCH ×3 (01:07→17:12)
[2020-04-30] MEDS: PANTOPRAZOLE SOD 40 MG SUSPENSION PACKET PO SCH (06:29)
[2020-04-30] MEDS: INSULIN SLIDING SCALE (NOVOLOG) 1 VIAL SQ SCH ×4 (06:29→22:41)
[2020-04-30 09:07] LABS: BASO % 0.7 % (0-2.0); EOS % 1.1 % (0-4.5); HEMATOCRIT 31.5 % (32.4-45.2); LYMPH % 8.6 % (8-40); MCH 26.4 pg (25.7-33.7); MCHC 31.6 g/dl (32.0-36.0); MEAN CELL VOLUME 83.3 fl (80-96); MEAN PLT VOLUME 7.7 fl (7.5-11.1); MONO % 4.5 % (3.8-10.2); NEUT % 85.1 % (42.8-82.8); PLATELET COUNT 522 K/MM3 (134-434); RBC 3.78 M/mm3 (3.60-5.2); RDW 15.1 % (11.6-15.6); WHITE BLOOD COUNT 16.5 K/mm3 (4.0-10.0)
[2020-04-30 09:36] LABS: ALBUMIN 1.8 g/dl (3.4-5.0); BILIRUBIN,TOTAL 0.6 mg/dL (0.2-1); BLOOD UREA NITROGEN 10.9 mg/dL (7-18); CALCIUM 9.2 mg/dL (8.5-10.1); CREATININE 0.8 mg/dL (0.55-1.3); PHOSPHOROUS 3.2 mg/dL (2.5-4.9); TOT PROT 6.3 g/dl (6.4-8.2)
--- NOTE | 2020-04-30 11:36 | PN ---
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, Physician History of Present Illness: stable baseline dementia no new issues - Current Medication List Current Medications: Active Medications Acetaminophen (Tylenol -) 650 mg PO Q6H PRN PRN Reason: Fever Amino Acids (Prosource No Carb Liquid Pkt) 30 ml PO DAILY [facility] Last Admin: 04/29/20 10:03 Dose: 30 ml Documented by: Amlodipine Besylate (Norvasc -) 2.5 mg PO DAILY [facility] Last Admin: 04/29/20 10:03 Dose: 2.5 mg Documented by: Ascorbic Acid (Vitamin C -) 500 mg PO BID [facility] Last Admin: 04/29/20 21:54 Dose: 500 mg Documented by: Citalopram Hydrobromide (Celexa -) 20 mg PO HS [facility] Last Admin: 04/29/20 21:54 Dose: 20 mg Documented by: Daptomycin 500 mg/ Sodium (Chloride) 50 mls @ 50 mls/hr IVPB Q24H [facility]; Protocol Last Admin: 04/29/20 15:11 Dose: 50 mls/hr Documented by: Meropenem 1 gm/ Dextrose 100 mls @ 200 mls/hr IVPB Q8H-IV [facility] Insulin Aspart (Novolog Vial Sliding Scale -) 1 vial SQ ACHS [facility]; Protocol Last Admin: 04/30/20 06:29 Dose: Not Given Documented by: Mirtazapine (Remeron -) 7.5 mg PO HS [facility] Last Admin: 04/29/20 21:54 Dose: 7.5 mg Documented by: Morphine Sulfate (Morphine Sulfate) 4 mg IVPUSH Q4H PRN PRN Reason: PAIN LEVEL 6-10 Multivitamins/Minerals (Certavite-Antioxidant Liquid) 15 ml PO DAILY [facility] Last Admin: 04/29/20 10:02 Dose: 15 ml Documented by: Pantoprazole Sodium (Protonix Packets For Oral Suspension -) 40 mg PO ACBK [facility] Last Admin: 04/30/20 06:29 Dose: Not Given Documented by: Polyethylene Glycol (Miralax (For Daily Use) -) 17 gm PO BID PRN PRN Reason: CONSTIPATION Senna/Docusate Sodium (Pericolace -) 1 tablet PO BID PRN PRN Reason: CONSTIPATION Zinc Sulfate (Orazinc -) 220 mg PO DAILY [facility] Stop: 05/06/20 09:59 Last Admin: 04/29/20 10:03 Dose: 220 mg Documented by: - Objective Vital Signs: Vital Signs Temperature 98.1 F 04/30/20 09:00 Pulse Rate 83 04/30/20 09:00 Respiratory Rate 18 04/30/20 09:00 Blood Pressure 157/76 04/30/20 09:00 O2 Sat by Pulse Oximetry (%) 100 04/30/20 09:00 Constitutional: Yes: No Distress, Calm Cardiovascular: Yes: S1, S2 Respiratory: Yes: Regular, CTA Bilaterally Gastrointestinal: Yes: Normal Bowel Sounds, Soft Musculoskeletal: Yes: Other Extremities: Yes: WNL Wound/Incision: Yes: Dressing Dry and Intact Neurological: Yes: Alert, Oriented Psychiatric: Yes: Alert, Oriented Labs: CBC, BMP 04/30/20 08:18 04/30/20 08:18 INR, PTT INR 1.25 (0.83-1.09) H 04/25/20 06:00 Assessment/Plan Problem List - Problems (1) Severe sepsis Code(s): A41.9 - SEPSIS, UNSPECIFIED ORGANISM; R65.20 - SEVERE SEPSIS WITHOUT SEPTIC SHOCK (2) Bacteremia due to Gram-negative bacteria Code(s): R78.81 - BACTEREMIA (3) Status post spinal surgery Code(s): Z98.890 - OTHER SPECIFIED POSTPROCEDURAL STATES (4) Toxic metabolic encephalopathy Code(s): G92 - TOXIC ENCEPHALOPATHY (5) Urinary tract infection Code(s): N39.0 - URINARY TRACT INFECTION, SITE NOT SPECIFIED Qualifiers: Urinary tract infection type: site unspecified Hematuria presence: without hematuria Qualified Code(s): N39.0 - Urinary tract infection, site not specified Assessment/Plan 79 y.o. female with PMH of dementia, HTN, depression, lumbar stenosis s/p laminectomy, neuropathy who underwent removal of L3-L5 hardware, L3-S1 laminectomies, L5-S1 PLIF/L3-S1 PSIF on 04/09/20 and noted to develop fever up to 101.8F and increase in wbc to 16.8K along with lethargy and mild hypotension Severe Sepsis Gram negative/E. coli Bacteremia Pseudomonas UTI s/p lumbar wound I+D, s/p washout/wound vac placement plan ct current mgmt abx rest as per the team
--- NOTE | 2020-04-30 13:39 | PN ---
Physical Exam: SUBJECTIVE: Patient seen and examined. denies any pain or discomfort. I discussed possible peg tube with patient for nutritional support. patient has a history of dementia per medical records, but she was lucid and informed me that she does not want a peg tube for feeds. she seemed to understand what a peg tube and what it is used for. she tells me that another member of our staff had discussed purpose of a peg with her. I called her son [place] [phone] who also informed me that family does not want his mother to get a peg tube as they felt that her eating has improved. Son states that he would like for us to monitor her food intake before deciding on a peg tube. OBJECTIVE: will cancel peg tube order and place patient back on pureed/nectar thick diet calorie count ordered will add supplements per frame sample and pattern supervisor recommendations ------- Patient is a 79 year old female with history of hypertension, dementia, depression, spinal stenosis, neuropathy she is s/p removal of L3-L5 hardware, including L4-L5 intervertebral cage, L3-S1 laminectomy, L5-S1 PLIF, L3-S1 posterior instrumented spinal fusion. She is s/p multiple washouts for infected hardware. Vital Signs Period Temp Pulse Resp BP Sys/Lepe Pulse Ox Last 24 Hr 97.8 F-98.4 F 74-119 18-20 132-159/64-82 96-100 GENERAL: awake, alert answers questions. hx of dementia but lucid and tells me she does not want a peg tube HEAD: Normal with no signs of trauma. EYES: PERRL, extraocular movements intact, sclera anicteric, conjunctiva clear. No ptosis. ENT: Ears normal, nares patent, oropharynx clear without exudates NECK: Trachea midline, full range of motion, supple. LUNGS: Breath sounds diminished bilaterally, no wheezes - on 2 liters SPINE: surgical dressing HEART: Regular rate and rhythm, S1, S2 without murmur, rub or gallop. ABDOMEN: Soft, nontender, nondistended, normoactive bowel sounds, no guarding EXTREMITIES: no edema. NEUROLOGICAL: Normal speech, gait not observed. PSYCH: Normal mood, normal affect Laboratory Results - last 24 hr 04/27/20 04/29/20 04/29/20 17:31 16:54 21:58 WBC RBC Hgb Hct MCV MCH MCHC RDW Plt Count MPV Absolute Neuts (auto) Neutrophils % Lymphocytes % Monocytes % Eosinophils % Basophils % Nucleated RBC % Sodium Potassium Chloride Carbon Dioxide Anion Gap BUN Creatinine Est GFR (CKD-EPI)AfAm Est GFR (CKD-EPI)NonAf POC Glucometer 89 95 84 Random Glucose Calcium Phosphorus Magnesium Total Bilirubin AST ALT Alkaline Phosphatase Total Protein Albumin 04/30/20 04/30/20 04/30/20 05:24 08:18 08:18 WBC 16.5 H RBC 3.78 Hgb 10.0 L Hct 31.5 L MCV 83.3 MCH 26.4 MCHC 31.6 L RDW 15.1 Plt Count 522 H MPV 7.7 Absolute Neuts (auto) 14.0 H Neutrophils % 85.1 H Lymphocytes % 8.6 D Monocytes % 4.5 Eosinophils % 1.1 Basophils % 0.7 Nucleated RBC % 0 Sodium 143 Potassium 4.0 Chloride 107 Carbon Dioxide 27 Anion Gap 9 BUN 10.9 Creatinine 0.8 Est GFR (CKD-EPI)AfAm 82.42 Est GFR (CKD-EPI)NonAf 71.11 POC Glucometer 79 Random Glucose 77 Calcium 9.2 Phosphorus 3.2 Magnesium 2.0 Total Bilirubin 0.6 AST 57 H ALT 44 Alkaline Phosphatase 98 Total Protein 6.3 L Albumin 1.8 L 04/30/20 11:19 WBC RBC Hgb Hct MCV MCH MCHC RDW Plt Count MPV Absolute Neuts (auto) Neutrophils % Lymphocytes % Monocytes % Eosinophils % Basophils % Nucleated RBC % Sodium Potassium Chloride Carbon Dioxide Anion Gap BUN Creatinine Est GFR (CKD-EPI)AfAm Est GFR (CKD-EPI)NonAf POC Glucometer 71 Random Glucose Calcium Phosphorus Magnesium Total Bilirubin AST ALT Alkaline Phosphatase Total Protein Albumin Active Medications Generic Name Dose Route Start Last Admin Trade Name Freq PRN Reason Stop Dose Admin Acetaminophen 650 mg 04/28/20 01:55 Tylenol - PO Q6H PRN Fever Amino Acids 30 ml 04/27/20 16:00 04/29/20 10:03 Prosource No Carb Liquid Pkt PO 30 ml DAILY [facility] Administration Amlodipine Besylate 2.5 mg 04/28/20 13:30 04/29/20 10:03 Norvasc - PO 2.5 mg DAILY [facility] Administration Ascorbic Acid 500 mg 04/28/20 10:00 04/29/20 21:54 Vitamin C - PO 500 mg BID [facility] Administration Citalopram Hydrobromide 20 mg 04/28/20 22:00 04/29/20 21:54 Celexa - PO 20 mg HS [facility] Administration Daptomycin 500 mg/ Sodium 50 mls @ 50 mls/hr 04/28/20 16:00 04/29/20 15:11 Chloride IVPB 50 mls/hr Q24H [facility] Administration Protocol Meropenem 1 gm/ Dextrose 100 mls @ 200 mls/hr 04/30/20 11:45 04/30/20 12:51 IVPB 200 mls/hr Q8H-IV [facility] Administration Insulin Aspart 1 vial 04/28/20 07:00 04/30/20 12:49 Novolog Vial Sliding Scale - SQ Not Given ACHS [facility] Protocol Mirtazapine 7.5 mg 04/28/20 22:00 04/29/20 21:54 Remeron - PO 7.5 mg HS [facility] Administration Morphine Sulfate 4 mg 04/28/20 01:55 Morphine Sulfate IVPUSH Q4H PRN PAIN LEVEL 6-10 Multivitamins/Minerals 15 ml 04/28/20 10:00 04/29/20 10:02 Certavite-Antioxidant Liquid PO 15 ml DAILY [facility] Administration Pantoprazole Sodium 40 mg 04/28/20 07:00 04/30/20 06:29 Protonix Packets For Oral Suspension - PO Not Given ACBK [facility] Polyethylene Glycol 17 gm 04/29/20 10:52 Miralax (For Daily Use) - PO BID PRN CONSTIPATION Senna/Docusate Sodium 1 tablet 04/29/20 10:55 Pericolace - PO BID PRN CONSTIPATION Zinc Sulfate 220 mg 04/28/20 10:00 04/29/20 10:03 Orazinc - PO 05/06/20 09:59 220 mg DAILY [facility] Administration ASSESSMENT/PLAN: Problem List - Problems (1) Poor appetite Assessment/Plan: patient initially for a peg tube placement today, but patient and family now refusing peg tube placement. family feels appetite is improving. will order calorie count, and pureed diet with nectar thick, supplements. RD following Code(s): R63.0 - ANOREXIA (2) Severe sepsis Assessment/Plan: spinal stenosis POD #21 s/p removal of L3-L5 hardware, including L4-L5 intervertebral cage, L3-S1 laminectomy, L5-S1 PLIF, L3-S1 posterior instrumented spinal fusion. s/p multiple washouts. on daptomycin and meropenem per ID monitor drain output surgery follow up pain control monitor vitals, labs, mental status Code(s): A41.9 - SEPSIS, UNSPECIFIED ORGANISM; R65.20 - SEVERE SEPSIS WITHOUT SEPTIC SHOCK (3) Toxic metabolic encephalopathy Assessment/Plan: mental status has improved and patient able to answer questions appropriately AMS likely secondary to sepsis Code(s): G92 - TOXIC ENCEPHALOPATHY (4) Status post spinal surgery Assessment/Plan: Wound culture from 04/23/2020 grew pseudomonas resistant to zosyn and VRE sentivie to daptomycin. Continue daptomycin and meropenem. ID following monitor WBC, fevers, vitals leukocytosis improving Code(s): Z98.890 - OTHER SPECIFIED POSTPROCEDURAL STATES (5) At risk for dehydration due to poor fluid intake Assessment/Plan: calorie count ordered. strict intake and output Code(s): Z91.89 - OTH PERSONAL RISK FACTORS, NOT ELSEWHERE CLASSIFIED (6) Prophylactic measure Assessment/Plan: fen monitor electrolytes dietary consult for supplements and calorie count will add prosource full code Code(s): Z29.9 - ENCOUNTER FOR PROPHYLACTIC MEASURES, UNSPECIFIED (7) DVT prophylaxis Assessment/Plan: SCDs Code(s): Z29.9 - ENCOUNTER FOR PROPHYLACTIC MEASURES, UNSPECIFIED Visit type - Emergency Visit Emergency Visit: Yes ED Registration Date: 04/09/20 Care time: The patient presented to the Emergency Department on the above date and was hospitalized for further evaluation of their emergent condition. - New Patient This patient is new to me today: No - Critical Care Critical Care patient: No - Discharge Referral Referred to [facility] Med P.C.: No - Medication Review Med list reviewed for High Risk Meds patients 65 and older: No
[2020-04-30] MEDS: ZINC SULFATE 220 MG CAPSULE (FP) PO SCH (14:25)
[2020-04-30] MEDS: MULTIVIT-MINERALS ORAL LIQUID PO SCH (14:25)
[2020-04-30] MEDS: amLODIPine BESYLATE 2.5 MG TABLET (FP) PO SCH (14:25)
[2020-04-30] MEDS: ASCORBIC ACID 500 MG TABLET (FP) PO SCH ×2 (14:26→22:30)
[2020-04-30] MEDS: AMINO ACIDS/PROTEIN HYDROLYS 30 ML LIQUID.PKT PO SCH (14:26)
[2020-04-30] MEDS ORDERED: PT OWN MED DRAWER 7, Y5N ONE (16:23)
[2020-04-30] MEDS: DAPTOMYCIN 500 MG in SODIUM CHLORIDE 50 ML IVPB SCH (16:26)
--- NOTE | 2020-04-30 22:03 | PN ---
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 (short form) - Note 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: Clinically much improved Mental State Fully orientated for person and place Cooperative and held a normal conversation with me. General See medical notes Declined a feeding gastrostomy is taking oral feeds. Not out of bed yet. Wound dry Decubitis ucerls stge1 to 2 Drain removed Neuro Global weakness Left LE. Not surprised as this was the problem side. Plan Daily dry dressings nursing to decrease pressure on sacrum and cover the decubitis ulcers. PT Attempt bed to chair D/C to rehab once I am convinced of wound healing consolidated
[2020-04-30] MEDS: MIRTAZAPINE 15 MG TABLET (FP) PO SCH (22:30)
[2020-04-30] MEDS: CITALOPRAM HYDROBROMIDE 20 MG TABLET PO SCH (22:31)
[2020-05-01] MEDS ORDERED: MEROPENEM 1 GM VIAL (RESTRICTED TO ID) IVPB ONE ×3 (03:33→16:54)
[2020-05-01] MEDS ORDERED: DEXTROSE 5%-WATER 100 ML IVPB ONE ×3 (03:34→16:55)
[2020-05-01] MEDS: MEROPENEM 1 GM in DEXTROSE 5%-WATER 100 ML IVPB SCH ×5 (03:35→21:17)
[2020-05-01] MEDS: PANTOPRAZOLE SOD 40 MG SUSPENSION PACKET PO SCH (06:31)
[2020-05-01] MEDS: INSULIN SLIDING SCALE (NOVOLOG) 1 VIAL SQ SCH ×4 (06:33→22:03)
[2020-05-01 08:14] LABS: BASO % 0.5 % (0-2.0); EOS % 1.1 % (0-4.5); HEMATOCRIT 32.9 % (32.4-45.2); HEMOGLOBIN 10.7 GM/dL (10.7-15.3); LYMPH % 8.5 % (8-40); MCH 26.8 pg (25.7-33.7); MCHC 32.4 g/dl (32.0-36.0); MEAN CELL VOLUME 82.8 fl (80-96); MEAN PLT VOLUME 8.1 fl (7.5-11.1); NEUT % 85.9 % (42.8-82.8); PLATELET COUNT 550 K/MM3 (134-434); RBC 3.97 M/mm3 (3.60-5.2); RDW 14.9 % (11.6-15.6); WHITE BLOOD COUNT 19.1 K/mm3 (4.0-10.0)
[2020-05-01 08:34] LABS: BILIRUBIN,TOTAL 0.5 mg/dL (0.2-1); BLOOD UREA NITROGEN 8.4 mg/dL (7-18); CALCIUM 9.5 mg/dL (8.5-10.1); CREATININE 0.7 mg/dL (0.55-1.3); MAGNESIUM 2.1 mg/dL (1.8-2.4)
[2020-05-01 08:35] LABS: TOT PROT 6.6 g/dl (6.4-8.2)
[2020-05-01] MEDS ORDERED: PT OWN MED DRAWER 7, Y5N ONE (08:50)
--- NOTE | 2020-05-01 09:13 | PN ---
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, Physician Chief Complaint: Seen and examined in bed. Family discussion re PEG placement. States her appetite is better today. Calorie count in progress. History of Present Illness: 79 year old female with history of hypertension, dementia, depression, spinal stenosis, neuropathy she is s/p removal of L3-L5 hardware, including L4-L5 intervertebral cage, L3-S1 laminectomy, L5-S1 PLIF, L3-S1 posterior instrumented spinal fusion. She is s/p multiple washouts for infected hardware. - Current Medication List Current Medications: Active Medications Acetaminophen (Tylenol -) 650 mg PO Q6H PRN PRN Reason: Fever Amino Acids (Prosource No Carb Liquid Pkt) 30 ml PO DAILY [facility] Last Admin: 04/30/20 14:26 Dose: 30 ml Documented by: Amlodipine Besylate (Norvasc -) 2.5 mg PO DAILY [facility] Last Admin: 04/30/20 14:25 Dose: 2.5 mg Documented by: Ascorbic Acid (Vitamin C -) 500 mg PO BID [facility] Last Admin: 04/30/20 22:30 Dose: 500 mg Documented by: Citalopram Hydrobromide (Celexa -) 20 mg PO HS [facility] Last Admin: 04/30/20 22:31 Dose: 20 mg Documented by: Daptomycin 500 mg/ Sodium (Chloride) 50 mls @ 50 mls/hr IVPB Q24H [facility]; Protocol Last Admin: 04/30/20 16:26 Dose: 50 mls/hr Documented by: Meropenem 1 gm/ Dextrose 100 mls @ 200 mls/hr IVPB Q8H-IV [facility] Last Admin: 05/01/20 03:35 Dose: 200 mls/hr Documented by: Insulin Aspart (Novolog Vial Sliding Scale -) 1 vial SQ ACHS [facility]; Protocol Last Admin: 05/01/20 06:33 Dose: Not Given Documented by: Mirtazapine (Remeron -) 7.5 mg PO HS [facility] Last Admin: 04/30/20 22:30 Dose: 7.5 mg Documented by: Morphine Sulfate (Morphine Sulfate) 4 mg IVPUSH Q4H PRN PRN Reason: PAIN LEVEL 6-10 Multivitamins/Minerals (Certavite-Antioxidant Liquid) 15 ml PO DAILY [facility] Last Admin: 04/30/20 14:25 Dose: 15 ml Documented by: Pantoprazole Sodium (Protonix Packets For Oral Suspension -) 40 mg PO ACBK [facility] Last Admin: 05/01/20 06:31 Dose: 40 mg Documented by: Polyethylene Glycol (Miralax (For Daily Use) -) 17 gm PO BID PRN PRN Reason: CONSTIPATION Senna/Docusate Sodium (Pericolace -) 1 tablet PO BID PRN PRN Reason: CONSTIPATION Zinc Sulfate (Orazinc -) 220 mg PO DAILY [facility] Stop: 05/06/20 09:59 Last Admin: 04/30/20 14:25 Dose: 220 mg Documented by: - Objective Vital Signs: Vital Signs Temperature 98.1 F 05/01/20 08:00 Pulse Rate 79 05/01/20 08:00 Respiratory Rate 20 05/01/20 08:00 Blood Pressure 167/89 05/01/20 08:00 O2 Sat by Pulse Oximetry (%) 99 05/01/20 08:00 Constitutional: Yes: Well Nourished, No Distress, Calm Eyes: Yes: WNL, Conjunctiva Clear HENT: Yes: WNL, Atraumatic, Normocephalic Neck: Yes: WNL, Supple, Trachea Midline Cardiovascular: Yes: WNL, Regular Rate and Rhythm Respiratory: Yes: WNL, Regular, CTA Bilaterally, Diminished, On Nasal O2 (2l) Gastrointestinal: Yes: WNL, Normal Bowel Sounds ...Rectal Exam: Yes: Deferred Genitourinary: Yes: WNL Breast(s): Yes: WNL Musculoskeletal: Yes: WNL Extremities: Yes: WNL Edema: No Peripheral Pulses WNL: Yes Peripheral Pulses: Left Radial: 2+, Right Radial: 2+, Left Doralis Pedis: 2+, Right Dorsalis Pedis: 2+, Left Femoral: 2+, Right Femoral: 2+ Integumentary: Yes: WNL Neurological: Yes: Alert, Oriented, Other (forgetful) ...Motor Strength: WNL Psychiatric: Yes: Alert Labs: CBC, BMP 05/01/20 06:42 05/01/20 06:42 INR, PTT INR 1.25 (0.83-1.09) H 04/25/20 06:00 Problem List - Problems (1) COVID-19 ruled out Assessment/Plan: PCR negative Problems reviewed: No Code(s): Z03.818 - ENCNTR FOR OBS FOR SUSP EXPSR TO OTH BIOLG AGENTS RULED OUT (2) Dementia Assessment/Plan: supportive care Code(s): F03.90 - UNSPECIFIED DEMENTIA WITHOUT BEHAVIORAL DISTURBANCE (3) Depression Assessment/Plan: supportive care Code(s): F32.9 - MAJOR DEPRESSIVE DISORDER, SINGLE EPISODE, UNSPECIFIED (4) Hypertension Assessment/Plan: c/w norvasc Code(s): I10 - ESSENTIAL (PRIMARY) HYPERTENSION (5) Poor appetite Assessment/Plan: improving calorie count in prgress c/w supplemental Code(s): R63.0 - ANOREXIA (6) Prophylactic measure Assessment/Plan: FEN Fluids: improved PO intake Electrolytes: monitor & replete as need dys diet DVT no AC Dispo Maintain as inpatient full code discharge planning Code(s): Z29.9 - ENCOUNTER FOR PROPHYLACTIC MEASURES, UNSPECIFIED (7) Status post spinal surgery Assessment/Plan: Wound culture from 04/23/2020 grew pseudomonas resistant to zosyn and VRE sentivie to daptomycin. Continue daptomycin and meropenem. ID following monitor WBC, fevers, vitals leukocytosis improving Code(s): Z98.890 - OTHER SPECIFIED POSTPROCEDURAL STATES (8) Malnutrition Assessment/Plan: c/w nutritional supplements calorie count in progress Code(s): E46 - UNSPECIFIED PROTEIN-CALORIE MALNUTRITION (9) Severe sepsis Assessment/Plan: spinal stenosis POD #22 s/p removal of L3-L5 hardware, including L4-L5 intervertebral cage, L3-S1 laminectomy, L5-S1 PLIF, L3-S1 posterior instrumented spinal fusion. s/p multiple washouts. c/w daptomycin and meropenem per ID surgery follow up pain control monitor vitals, labs, mental status Code(s): A41.9 - SEPSIS, UNSPECIFIED ORGANISM; R65.20 - SEVERE SEPSIS WITHOUT SEPTIC SHOCK (10) Toxic metabolic encephalopathy Assessment/Plan: multifactorial mental status has improved and patient able to answer questions appropriately AMS likely secondary to sepsis Code(s): G92 - TOXIC ENCEPHALOPATHY (11) Leukocytosis Assessment/Plan: wbc 19 c/t trend c/w abx Code(s): D72.829 - ELEVATED WHITE BLOOD CELL COUNT, UNSPECIFIED (12) Thrombocytosis Assessment/Plan: most liekly r/t sepsis c/t trend Code(s): D47.3 - ESSENTIAL (HEMORRHAGIC) THROMBOCYTHEMIA Visit type - Emergency Visit Emergency Visit: Yes ED Registration Date: 04/09/20 Care time: The patient presented to the Emergency Department on the above date and was hospitalized for further evaluation of their emergent condition. - New Patient This patient is new to me today: Yes Date on this admission: 05/01/20 - Critical Care Critical Care patient: No - Discharge Referral Referred to [facility] Med P.C.: No - Medication Review Med list reviewed for High Risk Meds patients 65 and older: Yes
[2020-05-01] MEDS: amLODIPine BESYLATE 2.5 MG TABLET (FP) PO SCH (09:21)
[2020-05-01] MEDS: AMINO ACIDS/PROTEIN HYDROLYS 30 ML LIQUID.PKT PO SCH (09:21)
[2020-05-01] MEDS: ASCORBIC ACID 500 MG TABLET (FP) PO SCH ×2 (09:21→21:19)
[2020-05-01] MEDS: MULTIVIT-MINERALS ORAL LIQUID PO SCH (09:22)
[2020-05-01] MEDS: ZINC SULFATE 220 MG CAPSULE (FP) PO SCH (09:22)
--- NOTE | 2020-05-01 12:53 | PN ---
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, Physician History of Present Illness: stable baseline dementia no new issues - Current Medication List Current Medications: Active Medications Acetaminophen (Tylenol -) 650 mg PO Q6H PRN PRN Reason: Fever Amino Acids (Prosource No Carb Liquid Pkt) 30 ml PO DAILY [facility] Last Admin: 05/01/20 09:21 Dose: 30 ml Documented by: Amlodipine Besylate (Norvasc -) 2.5 mg PO DAILY [facility] Last Admin: 05/01/20 09:21 Dose: 2.5 mg Documented by: Ascorbic Acid (Vitamin C -) 500 mg PO BID [facility] Last Admin: 05/01/20 09:21 Dose: 500 mg Documented by: Citalopram Hydrobromide (Celexa -) 20 mg PO HS [facility] Last Admin: 04/30/20 22:31 Dose: 20 mg Documented by: Daptomycin 500 mg/ Sodium (Chloride) 50 mls @ 50 mls/hr IVPB Q24H [facility]; Protocol Last Admin: 04/30/20 16:26 Dose: 50 mls/hr Documented by: Meropenem 1 gm/ Dextrose 100 mls @ 200 mls/hr IVPB Q8H-IV [facility] Last Admin: 05/01/20 09:22 Dose: 200 mls/hr Documented by: Insulin Aspart (Novolog Vial Sliding Scale -) 1 vial SQ ACHS [facility]; Protocol Last Admin: 05/01/20 06:33 Dose: Not Given Documented by: Mirtazapine (Remeron -) 7.5 mg PO HS [facility] Last Admin: 04/30/20 22:30 Dose: 7.5 mg Documented by: Morphine Sulfate (Morphine Sulfate) 4 mg IVPUSH Q4H PRN PRN Reason: PAIN LEVEL 6-10 Multivitamins/Minerals (Certavite-Antioxidant Liquid) 15 ml PO DAILY [facility] Last Admin: 05/01/20 09:22 Dose: 15 ml Documented by: Pantoprazole Sodium (Protonix Packets For Oral Suspension -) 40 mg PO ACBK [facility] Last Admin: 05/01/20 06:31 Dose: 40 mg Documented by: Polyethylene Glycol (Miralax (For Daily Use) -) 17 gm PO BID PRN PRN Reason: CONSTIPATION Senna/Docusate Sodium (Pericolace -) 1 tablet PO BID PRN PRN Reason: CONSTIPATION Zinc Sulfate (Orazinc -) 220 mg PO DAILY [facility] Stop: 05/06/20 09:59 Last Admin: 05/01/20 09:22 Dose: 220 mg Documented by: - Objective Vital Signs: Vital Signs Temperature 98.1 F 05/01/20 08:00 Pulse Rate 79 05/01/20 08:00 Respiratory Rate 20 05/01/20 09:00 Blood Pressure 167/89 05/01/20 08:00 O2 Sat by Pulse Oximetry (%) 99 05/01/20 09:00 Constitutional: Yes: No Distress, Calm Cardiovascular: Yes: S1, S2 Respiratory: Yes: Regular, CTA Bilaterally Gastrointestinal: Yes: Normal Bowel Sounds, Soft Musculoskeletal: Yes: Other Extremities: Yes: WNL Wound/Incision: Yes: Dressing Dry and Intact Neurological: Yes: Alert, Oriented Psychiatric: Yes: Alert, Oriented Labs: CBC, BMP 05/01/20 06:42 05/01/20 06:42 INR, PTT INR 1.25 (0.83-1.09) H 04/25/20 06:00 Assessment/Plan Problem List - Problems (1) Severe sepsis Code(s): A41.9 - SEPSIS, UNSPECIFIED ORGANISM; R65.20 - SEVERE SEPSIS WITHOUT SEPTIC SHOCK (2) Bacteremia due to Gram-negative bacteria Code(s): R78.81 - BACTEREMIA (3) Status post spinal surgery Code(s): Z98.890 - OTHER SPECIFIED POSTPROCEDURAL STATES (4) Toxic metabolic encephalopathy Code(s): G92 - TOXIC ENCEPHALOPATHY (5) Urinary tract infection Code(s): N39.0 - URINARY TRACT INFECTION, SITE NOT SPECIFIED Qualifiers: Urinary tract infection type: site unspecified Hematuria presence: without hematuria Qualified Code(s): N39.0 - Urinary tract infection, site not specified Assessment/Plan 79 y.o. female with PMH of dementia, HTN, depression, lumbar stenosis s/p laminectomy, neuropathy who underwent removal of L3-L5 hardware, L3-S1 laminectomies, L5-S1 PLIF/L3-S1 PSIF on 04/09/20 and noted to develop fever up to 101.8F and increase in wbc to 16.8K along with lethargy and mild hypotension Severe Sepsis Gram negative/E. coli Bacteremia Pseudomonas UTI s/p lumbar wound I+D, s/p washout/wound vac placement plan ct current mgmt abx rest as per the team
[2020-05-01] MEDS: DAPTOMYCIN 500 MG in SODIUM CHLORIDE 50 ML IVPB SCH (16:06)
[2020-05-01] MEDS: CITALOPRAM HYDROBROMIDE 20 MG TABLET PO SCH (21:19)
[2020-05-01] MEDS: MIRTAZAPINE 15 MG TABLET (FP) PO SCH (21:19)
[2020-05-02] MEDS ORDERED: MEROPENEM 1 GM VIAL (RESTRICTED TO ID) IVPB ONE ×3 (02:15→16:55)
[2020-05-02] MEDS ORDERED: DEXTROSE 5%-WATER 100 ML IVPB ONE ×3 (02:16→16:55)
[2020-05-02] MEDS: MEROPENEM 1 GM in DEXTROSE 5%-WATER 100 ML IVPB SCH ×4 (02:20→17:42)
[2020-05-02] MEDS: PANTOPRAZOLE SOD 40 MG SUSPENSION PACKET PO SCH (06:08)
[2020-05-02] MEDS: INSULIN SLIDING SCALE (NOVOLOG) 1 VIAL SQ SCH ×4 (06:16→21:53)
[2020-05-02 08:04] LABS: BASO % 0.6 % (0-2.0); EOS % 1.4 % (0-4.5); HEMATOCRIT 32.2 % (32.4-45.2); HEMOGLOBIN 10.3 GM/dL (10.7-15.3); LYMPH % 10.1 % (8-40); MEAN CELL VOLUME 84.1 fl (80-96); MEAN PLT VOLUME 7.8 fl (7.5-11.1); MONO % 4.7 % (3.8-10.2); NEUT % 83.2 % (42.8-82.8); PLATELET COUNT 515 K/MM3 (134-434); RBC 3.83 M/mm3 (3.60-5.2); RDW 15.3 % (11.6-15.6); WHITE BLOOD COUNT 16.7 K/mm3 (4.0-10.0)
[2020-05-02 08:23] LABS: BILIRUBIN,TOTAL 0.5 mg/dL (0.2-1); BLOOD UREA NITROGEN 12.9 mg/dL (7-18); CALCIUM 9.4 mg/dL (8.5-10.1); CREATININE 0.8 mg/dL (0.55-1.3); MAGNESIUM 2.1 mg/dL (1.8-2.4); POTASSIUM 4.5 mmol/L (3.5-5.1); TOT PROT 6.8 g/dl (6.4-8.2)
--- NOTE | 2020-05-02 08:26 | PN ---
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, Physician Chief Complaint: Seen and examined in bed. Appetite improving. Calorie count in progress. Remains on IV abx. Can transfer off telemetry to med surg floor History of Present Illness: 79 year old female with history of hypertension, dementia, depression, spinal stenosis, neuropathy she is s/p removal of L3-L5 hardware, including L4-L5 intervertebral cage, L3-S1 laminectomy, L5-S1 PLIF, L3-S1 posterior instrumented spinal fusion. She is s/p multiple washouts for infected hardware. - Current Medication List Current Medications: Active Medications Acetaminophen (Tylenol -) 650 mg PO Q6H PRN PRN Reason: Fever Amino Acids (Prosource No Carb Liquid Pkt) 30 ml PO DAILY [facility] Last Admin: 05/01/20 09:21 Dose: 30 ml Documented by: Amlodipine Besylate (Norvasc -) 2.5 mg PO DAILY [facility] Last Admin: 05/01/20 09:21 Dose: 2.5 mg Documented by: Ascorbic Acid (Vitamin C -) 500 mg PO BID [facility] Last Admin: 05/01/20 21:19 Dose: 500 mg Documented by: Citalopram Hydrobromide (Celexa -) 20 mg PO HS [facility] Last Admin: 05/01/20 21:19 Dose: 20 mg Documented by: Daptomycin 500 mg/ Sodium (Chloride) 50 mls @ 50 mls/hr IVPB Q24H [facility]; Protocol Last Admin: 05/01/20 16:06 Dose: 50 mls/hr Documented by: Meropenem 1 gm/ Dextrose 100 mls @ 200 mls/hr IVPB Q8H-IV [facility] Last Admin: 05/02/20 02:20 Dose: 200 mls/hr Documented by: Insulin Aspart (Novolog Vial Sliding Scale -) 1 vial SQ ACHS [facility]; Protocol Last Admin: 05/02/20 06:16 Dose: Not Given Documented by: Mirtazapine (Remeron -) 7.5 mg PO HS [facility] Last Admin: 05/01/20 21:19 Dose: 7.5 mg Documented by: Morphine Sulfate (Morphine Sulfate) 4 mg IVPUSH Q4H PRN PRN Reason: PAIN LEVEL 6-10 Multivitamins/Minerals (Certavite-Antioxidant Liquid) 15 ml PO DAILY [facility] Last Admin: 05/01/20 09:22 Dose: 15 ml Documented by: Pantoprazole Sodium (Protonix Packets For Oral Suspension -) 40 mg PO ACBK [facility] Last Admin: 05/02/20 06:08 Dose: 40 mg Documented by: Polyethylene Glycol (Miralax (For Daily Use) -) 17 gm PO BID PRN PRN Reason: CONSTIPATION Senna/Docusate Sodium (Pericolace -) 1 tablet PO BID PRN PRN Reason: CONSTIPATION Zinc Sulfate (Orazinc -) 220 mg PO DAILY [facility] Stop: 05/06/20 09:59 Last Admin: 05/01/20 09:22 Dose: 220 mg Documented by: - Objective Vital Signs: Vital Signs Temperature 98.8 F 05/02/20 05:52 Pulse Rate 80 05/02/20 05:52 Respiratory Rate 18 05/02/20 05:52 Blood Pressure 150/75 05/02/20 05:52 O2 Sat by Pulse Oximetry (%) 98 05/02/20 05:52 Additional Findings/Remarks: Constitutional: Yes: Well Nourished, No Distress, Calm Eyes: Yes: WNL, Conjunctiva Clear HENT: Yes: WNL, Atraumatic, Normocephalic Neck: Yes: WNL, Supple, Trachea Midline Cardiovascular: Yes: WNL, Regular Rate and Rhythm Respiratory: Yes: WNL, Regular, CTA Bilaterally, Diminished, On Nasal O2 (2l) Gastrointestinal: Yes: WNL, Normal Bowel Sounds ...Rectal Exam: Yes: Deferred Genitourinary: Yes: WNL Breast(s): Yes: WNL Musculoskeletal: Yes: WNL Extremities: Yes: WNL Edema: No Peripheral Pulses WNL: Yes Peripheral Pulses: Left Radial: 2+, Right Radial: 2+, Left Doralis Pedis: 2+, Right Dorsalis Pedis: 2+, Left Femoral: 2+, Right Femoral: 2+ Integumentary: Yes: WNL Neurological: Yes: Alert, Oriented, Other (forgetful) ...Motor Strength: WNL Psychiatric: Yes: Alert Labs: CBC, BMP 05/02/20 07:18 05/02/20 07:18 INR, PTT INR 1.25 (0.83-1.09) H 04/25/20 06:00 Problem List - Problems (1) COVID-19 ruled out Assessment/Plan: PCR negative Code(s): Z03.818 - ENCNTR FOR OBS FOR SUSP EXPSR TO OTH BIOLG AGENTS RULED OUT (2) Dementia Assessment/Plan: supportive care Code(s): F03.90 - UNSPECIFIED DEMENTIA WITHOUT BEHAVIORAL DISTURBANCE (3) Depression Assessment/Plan: supportive care Code(s): F32.9 - MAJOR DEPRESSIVE DISORDER, SINGLE EPISODE, UNSPECIFIED (4) Hypertension Assessment/Plan: mormotensive /w norvasc Problems reviewed: Yes Code(s): I10 - ESSENTIAL (PRIMARY) HYPERTENSION (5) Poor appetite Assessment/Plan: improving c/w calorie count c/w supplements Code(s): R63.0 - ANOREXIA (6) Prophylactic measure Assessment/Plan: FEN Fluids: improved PO intake Electrolytes: monitor & replete as need dys diet DVT no AC Dispo Maintain as inpatient full code discharge planning Code(s): Z29.9 - ENCOUNTER FOR PROPHYLACTIC MEASURES, UNSPECIFIED (7) Status post spinal surgery Assessment/Plan: Wound culture from 04/23/2020 grew pseudomonas resistant to zosyn and VRE sentivie to daptomycin. Continue daptomycin and meropenem. ID following monitor WBC, fevers, vitals leukocytosis improving Code(s): Z98.890 - OTHER SPECIFIED POSTPROCEDURAL STATES (8) Malnutrition Assessment/Plan: c/w nutritional supplements calorie count in progress Code(s): E46 - UNSPECIFIED PROTEIN-CALORIE MALNUTRITION (9) Severe sepsis Assessment/Plan: spinal stenosis POD #23 s/p removal of L3-L5 hardware, including L4-L5 intervertebral cage, L3-S1 laminectomy, L5-S1 PLIF, L3-S1 posterior instrumented spinal fusion. s/p multiple washouts. c/w daptomycin and meropenem per ID surgery follow up pain control monitor vitals, labs, mental status Code(s): A41.9 - SEPSIS, UNSPECIFIED ORGANISM; R65.20 - SEVERE SEPSIS WITHOUT S EPTIC SHOCK (10) Toxic metabolic encephalopathy Assessment/Plan: multifactorial mental status has improved and patient able to answer questions appropriately AMS likely secondary to sepsis Code(s): G92 - TOXIC ENCEPHALOPATHY (11) Leukocytosis Assessment/Plan: continues to imrpove afebrile wbc 16 c/t trend c/w abx Code(s): D72.829 - ELEVATED WHITE BLOOD CELL COUNT, UNSPECIFIED (12) Thrombocytosis Assessment/Plan: most liekly r/t sepsis c/t trend Code(s): D47.3 - ESSENTIAL (HEMORRHAGIC) THROMBOCYTHEMIA Visit type - Emergency Visit Emergency Visit: Yes ED Registration Date: 04/09/20 Care time: The patient presented to the Emergency Department on the above date and was hospitalized for further evaluation of their emergent condition. - New Patient This patient is new to me today: No - Critical Care Critical Care patient: No - Discharge Referral Referred to [facility] No - Medication Review Med list reviewed for High Risk Meds patients 65 and older: Yes
[2020-05-02] MEDS ORDERED: PT OWN MED DRAWER 7, Y5N ONE ×3 (08:39→23:06)
[2020-05-02] MEDS: AMINO ACIDS/PROTEIN HYDROLYS 30 ML LIQUID.PKT PO SCH (09:28)
[2020-05-02] MEDS: ASCORBIC ACID 500 MG TABLET (FP) PO SCH ×2 (09:29→21:53)
[2020-05-02] MEDS: amLODIPine BESYLATE 2.5 MG TABLET (FP) PO SCH (09:29)
[2020-05-02] MEDS: MULTIVIT-MINERALS ORAL LIQUID PO SCH (09:29)
[2020-05-02] MEDS: ZINC SULFATE 220 MG CAPSULE (FP) PO SCH (09:29)
[2020-05-02] MEDS: DAPTOMYCIN 500 MG in SODIUM CHLORIDE 50 ML IVPB SCH (17:05)
[2020-05-02] MEDS: morphine SULFATE 4 MG/ML VIAL IVPUSH PRN (17:47)
[2020-05-02] MEDS: CITALOPRAM HYDROBROMIDE 20 MG TABLET PO SCH (21:52)
[2020-05-02] MEDS: MIRTAZAPINE 15 MG TABLET (FP) PO SCH (21:53)
[2020-05-03] MEDS ORDERED: MEROPENEM 1 GM VIAL (RESTRICTED TO ID) IVPB ONE ×3 (01:03→15:51)
[2020-05-03] MEDS ORDERED: DEXTROSE 5%-WATER 100 ML IVPB ONE ×3 (01:03→15:52)
[2020-05-03] MEDS: MEROPENEM 1 GM in DEXTROSE 5%-WATER 100 ML IVPB SCH ×3 (01:25→16:59)
[2020-05-03] MEDS: PANTOPRAZOLE SOD 40 MG SUSPENSION PACKET PO SCH (06:34)
[2020-05-03] MEDS: INSULIN SLIDING SCALE (NOVOLOG) 1 VIAL SQ SCH ×4 (06:34→23:42)
[2020-05-03 08:25] LABS: BASO % 0.6 % (0-2.0); EOS % 1.3 % (0-4.5); HEMATOCRIT 30.9 % (32.4-45.2); HEMOGLOBIN 9.8 GM/dL (10.7-15.3); LYMPH % 9.5 % (8-40); MCH 26.5 pg (25.7-33.7); MCHC 31.6 g/dl (32.0-36.0); MEAN CELL VOLUME 83.9 fl (80-96); MEAN PLT VOLUME 7.8 fl (7.5-11.1); MONO % 5.5 % (3.8-10.2); NEUT % 83.1 % (42.8-82.8); PLATELET COUNT 453 K/MM3 (134-434); RBC 3.68 M/mm3 (3.60-5.2); RDW 15.2 % (11.6-15.6); WHITE BLOOD COUNT 14.8 K/mm3 (4.0-10.0)
[2020-05-03 08:33] LABS: ALBUMIN 1.9 g/dl (3.4-5.0); BILIRUBIN,TOTAL 0.3 mg/dL (0.2-1); BLOOD UREA NITROGEN 20.6 mg/dL (7-18); CALCIUM 9.1 mg/dL (8.5-10.1); CREATININE 1.1 mg/dL (0.55-1.3); MAGNESIUM 2.2 mg/dL (1.8-2.4); POTASSIUM 4.5 mmol/L (3.5-5.1); TOT PROT 6.6 g/dl (6.4-8.2)
--- NOTE | 2020-05-03 09:20 | PN ---
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, Physician History of Present Illness: no new issues - Current Medication List Current Medications: Active Medications Acetaminophen (Tylenol -) 650 mg PO Q6H PRN PRN Reason: Fever Amino Acids (Prosource No Carb Liquid Pkt) 30 ml PO DAILY [facility] Last Admin: 05/02/20 09:28 Dose: 30 ml Documented by: Amlodipine Besylate (Norvasc -) 2.5 mg PO DAILY [facility] Last Admin: 05/02/20 09:29 Dose: 2.5 mg Documented by: Ascorbic Acid (Vitamin C -) 500 mg PO BID [facility] Last Admin: 05/02/20 21:53 Dose: 500 mg Documented by: Citalopram Hydrobromide (Celexa -) 20 mg PO HS [facility] Last Admin: 05/02/20 21:52 Dose: 20 mg Documented by: Daptomycin 500 mg/ Sodium (Chloride) 50 mls @ 50 mls/hr IVPB Q24H [facility]; Protocol Last Admin: 05/02/20 17:05 Dose: 50 mls/hr Documented by: Meropenem 1 gm/ Dextrose 100 mls @ 200 mls/hr IVPB Q8H-IV [facility] Last Admin: 05/03/20 01:25 Dose: 200 mls/hr Documented by: Insulin Aspart (Novolog Vial Sliding Scale -) 1 vial SQ ACHS [facility]; Protocol Last Admin: 05/03/20 06:34 Dose: Not Given Documented by: Mirtazapine (Remeron -) 7.5 mg PO HS [facility] Last Admin: 05/02/20 21:53 Dose: 7.5 mg Documented by: Morphine Sulfate (Morphine Sulfate) 4 mg IVPUSH Q4H PRN PRN Reason: PAIN LEVEL 6-10 Last Admin: 05/02/20 17:47 Dose: 4 mg Documented by: Multivitamins/Minerals (Certavite-Antioxidant Liquid) 15 ml PO DAILY [facility] Last Admin: 05/02/20 09:29 Dose: 15 ml Documented by: Pantoprazole Sodium (Protonix Packets For Oral Suspension -) 40 mg PO ACBK [facility] Last Admin: 05/03/20 06:34 Dose: 40 mg Documented by: Polyethylene Glycol (Miralax (For Daily Use) -) 17 gm PO BID PRN PRN Reason: CONSTIPATION Senna/Docusate Sodium (Pericolace -) 1 tablet PO BID PRN PRN Reason: CONSTIPATION Zinc Sulfate (Orazinc -) 220 mg PO DAILY [facility] Stop: 05/06/20 09:59 Last Admin: 05/02/20 09:29 Dose: 220 mg Documented by: - Objective Vital Signs: Vital Signs Temperature 98.9 F 05/03/20 06:00 Pulse Rate 82 05/03/20 06:00 Respiratory Rate 20 05/03/20 06:00 Blood Pressure 148/76 05/03/20 06:00 O2 Sat by Pulse Oximetry (%) 96 05/02/20 22:58 Constitutional: Yes: No Distress, Calm Cardiovascular: Yes: S1, S2 Respiratory: Yes: Regular, CTA Bilaterally Gastrointestinal: Yes: Normal Bowel Sounds, Soft Musculoskeletal: Yes: Other Extremities: Yes: WNL Wound/Incision: Yes: Dressing Dry and Intact Neurological: Yes: Alert Psychiatric: Yes: Alert Labs: CBC, BMP 05/03/20 07:34 05/03/20 07:34 INR, PTT INR 1.25 (0.83-1.09) H 04/25/20 06:00 Assessment/Plan Problem List - Problems (1) Severe sepsis Code(s): A41.9 - SEPSIS, UNSPECIFIED ORGANISM; R65.20 - SEVERE SEPSIS WITHOUT SEPTIC SHOCK (2) Bacteremia due to Gram-negative bacteria Code(s): R78.81 - BACTEREMIA (3) Status post spinal surgery Code(s): Z98.890 - OTHER SPECIFIED POSTPROCEDURAL STATES (4) Toxic metabolic encephalopathy Code(s): G92 - TOXIC ENCEPHALOPATHY (5) Urinary tract infection Code(s): N39.0 - URINARY TRACT INFECTION, SITE NOT SPECIFIED Qualifiers: Urinary tract infection type: site unspecified Hematuria presence: without hematuria Qualified Code(s): N39.0 - Urinary tract infection, site not specified Assessment/Plan 79 y.o. female with PMH of dementia, HTN, depression, lumbar stenosis s/p laminectomy, neuropathy who underwent removal of L3-L5 hardware, L3-S1 laminectomies, L5-S1 PLIF/L3-S1 PSIF on 04/09/20 and noted to develop fever up to 101.8F and increase in wbc to 16.8K along with lethargy and mild hypotension Severe Sepsis Gram negative/E. coli Bacteremia Pseudomonas UTI s/p lumbar wound I+D, s/p washout/wound vac placement plan ct current mgmt abx rest as per the team check a cpk on the patient
[2020-05-03] MEDS: MULTIVIT-MINERALS ORAL LIQUID PO SCH (10:15)
[2020-05-03] MEDS: ZINC SULFATE 220 MG CAPSULE (FP) PO SCH (10:16)
[2020-05-03] MEDS: amLODIPine BESYLATE 2.5 MG TABLET (FP) PO SCH (10:17)
[2020-05-03] MEDS: ASCORBIC ACID 500 MG TABLET (FP) PO SCH ×2 (10:17→23:41)
[2020-05-03] MEDS: AMINO ACIDS/PROTEIN HYDROLYS 30 ML LIQUID.PKT PO SCH (10:17)
[2020-05-03] MEDS ORDERED: PT OWN MED DRAWER 7, Y5N ONE (14:52)
[2020-05-03] MEDS: morphine SULFATE 4 MG/ML VIAL IVPUSH PRN (15:13)
[2020-05-03] MEDS: DAPTOMYCIN 500 MG in SODIUM CHLORIDE 50 ML IVPB SCH (16:00)
[2020-05-03] MEDS ORDERED: INSULIN (NOVOLOG) ASPART 100 UNITS/ML 10ML VIAL ONE (21:29)
[2020-05-03] MEDS: MIRTAZAPINE 15 MG TABLET (FP) PO SCH (23:41)
[2020-05-03] MEDS: CITALOPRAM HYDROBROMIDE 20 MG TABLET PO SCH (23:41)
[2020-05-04] MEDS ORDERED: DEXTROSE 5%-WATER 100 ML IVPB ONE ×3 (02:39→17:28)
[2020-05-04] MEDS ORDERED: MEROPENEM 1 GM VIAL (RESTRICTED TO ID) IVPB ONE ×3 (02:39→17:27)
[2020-05-04] MEDS: MEROPENEM 1 GM in DEXTROSE 5%-WATER 100 ML IVPB SCH ×3 (02:43→17:41)
[2020-05-04] MEDS: PANTOPRAZOLE SOD 40 MG SUSPENSION PACKET PO SCH (06:55)
[2020-05-04] MEDS: INSULIN SLIDING SCALE (NOVOLOG) 1 VIAL SQ SCH ×4 (07:00→21:39)
[2020-05-04] MEDS ORDERED: POLYETHYLENE GLYCOL 3350 119 GM BTL PO PRN (07:30)
[2020-05-04 08:37] LABS: BASO % 0.8 % (0-2.0); EOS % 2.6 % (0-4.5); HEMATOCRIT 29.2 % (32.4-45.2); HEMOGLOBIN 9.5 GM/dL (10.7-15.3); LYMPH % 11.1 % (8-40); MCH 27.5 pg (25.7-33.7); MCHC 32.5 g/dl (32.0-36.0); MEAN CELL VOLUME 84.4 fl (80-96); MEAN PLT VOLUME 8.3 fl (7.5-11.1); MONO % 5.7 % (3.8-10.2); NEUT % 79.8 % (42.8-82.8); PLATELET COUNT 401 K/MM3 (134-434); RBC 3.46 M/mm3 (3.60-5.2); RDW 15.3 % (11.6-15.6); WHITE BLOOD COUNT 12.7 K/mm3 (4.0-10.0)
[2020-05-04] MEDS ORDERED: PT OWN MED DRAWER 7, Y5N ONE (09:04)
[2020-05-04 09:14] LABS: BILIRUBIN,TOTAL 0.3 mg/dL (0.2-1); BLOOD UREA NITROGEN 21.4 mg/dL (7-18); CALCIUM 9.1 mg/dL (8.5-10.1); CREATININE 0.9 mg/dL (0.55-1.3); MAGNESIUM 2.2 mg/dL (1.8-2.4); POTASSIUM 4.6 mmol/L (3.5-5.1); TOT PROT 6.5 g/dl (6.4-8.2)
[2020-05-04] MEDS: MULTIVIT-MINERALS ORAL LIQUID PO SCH (09:32)
[2020-05-04] MEDS: amLODIPine BESYLATE 2.5 MG TABLET (FP) PO SCH (09:32)
[2020-05-04] MEDS: AMINO ACIDS/PROTEIN HYDROLYS 30 ML LIQUID.PKT PO SCH (09:33)
[2020-05-04] MEDS: ASCORBIC ACID 500 MG TABLET (FP) PO SCH ×2 (09:33→21:38)
[2020-05-04] MEDS: ZINC SULFATE 220 MG CAPSULE (FP) PO SCH (09:33)
--- NOTE | 2020-05-04 09:40 | PN ---
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, Physician History of Present Illness: no new issues - Current Medication List Current Medications: Active Medications Acetaminophen (Tylenol -) 650 mg PO Q6H PRN PRN Reason: Fever Amino Acids (Prosource No Carb Liquid Pkt) 30 ml PO DAILY [facility] Last Admin: 05/04/20 09:33 Dose: 30 ml Documented by: Amlodipine Besylate (Norvasc -) 2.5 mg PO DAILY [facility] Last Admin: 05/04/20 09:32 Dose: 2.5 mg Documented by: Ascorbic Acid (Vitamin C -) 500 mg PO BID [facility] Last Admin: 05/04/20 09:33 Dose: 500 mg Documented by: Citalopram Hydrobromide (Celexa -) 20 mg PO HS [facility] Meropenem 1 gm/ Dextrose 100 mls @ 200 mls/hr IVPB Q8H-IV [facility] Last Admin: 05/04/20 09:32 Dose: 200 mls/hr Documented by: Daptomycin 500 mg/ Sodium (Chloride) 50 mls @ 50 mls/hr IVPB Q24H [facility]; Protocol Insulin Aspart (Novolog Vial Sliding Scale -) 1 vial SQ ACHS [facility]; Protocol Mirtazapine (Remeron -) 7.5 mg PO HS [facility] Multivitamins/Minerals (Certavite-Antioxidant Liquid) 15 ml PO DAILY [facility] Last Admin: 05/04/20 09:32 Dose: 15 ml Documented by: Pantoprazole Sodium (Protonix Packets For Oral Suspension -) 40 mg PO ACBK [facility] Polyethylene Glycol (Miralax (For Daily Use) -) 17 gm PO BID PRN PRN Reason: CONSTIPATION Last Admin: 05/04/20 09:35 Dose: 17 gm Documented by: Senna/Docusate Sodium (Pericolace -) 1 tablet PO BID PRN PRN Reason: CONSTIPATION Zinc Sulfate (Orazinc -) 220 mg PO DAILY [facility] Stop: 05/06/20 09:59 Last Admin: 05/04/20 09:33 Dose: 220 mg Documented by: - Objective Vital Signs: Vital Signs Temperature 98.1 F 05/04/20 05:52 Pulse Rate 74 05/04/20 05:52 Respiratory Rate 18 05/04/20 05:52 Blood Pressure 135/64 05/04/20 05:52 O2 Sat by Pulse Oximetry (%) 98 05/03/20 22:00 Constitutional: Yes: No Distress, Calm Cardiovascular: Yes: S1, S2 Respiratory: Yes: Regular, CTA Bilaterally Gastrointestinal: Yes: Normal Bowel Sounds, Soft Musculoskeletal: Yes: WNL Extremities: Yes: Other Wound/Incision: Yes: Dressing Dry and Intact Neurological: Yes: Alert Labs: CBC, BMP 05/04/20 06:45 05/04/20 06:45 INR, PTT INR 1.25 (0.83-1.09) H 04/25/20 06:00 Assessment/Plan Problem List - Problems (1) Severe sepsis Code(s): A41.9 - SEPSIS, UNSPECIFIED ORGANISM; R65.20 - SEVERE SEPSIS WITHOUT SEPTIC SHOCK (2) Bacteremia due to Gram-negative bacteria Code(s): R78.81 - BACTEREMIA (3) Status post spinal surgery Code(s): Z98.890 - OTHER SPECIFIED POSTPROCEDURAL STATES (4) Toxic metabolic encephalopathy Code(s): G92 - TOXIC ENCEPHALOPATHY (5) Urinary tract infection Code(s): N39.0 - URINARY TRACT INFECTION, SITE NOT SPECIFIED Qualifiers: Urinary tract infection type: site unspecified Hematuria presence: without hematuria Qualified Code(s): N39.0 - Urinary tract infection, site not specified Assessment/Plan 79 y.o. female with PMH of dementia, HTN, depression, lumbar stenosis s/p laminectomy, neuropathy who underwent removal of L3-L5 hardware, L3-S1 laminectomies, L5-S1 PLIF/L3-S1 PSIF on 04/09/20 and noted to develop fever up to 101.8F and increase in wbc to 16.8K along with lethargy and mild hypotension Severe Sepsis Gram negative/E. coli Bacteremia Pseudomonas UTI s/p lumbar wound I+D, s/p washout/wound vac placement plan ct current mgmt abx rest as per the team plan for further mgmt will need extermination supervisor abx
[2020-05-04] MEDS: DAPTOMYCIN 500 MG in SODIUM CHLORIDE 50 ML IVPB SCH (16:32)
[2020-05-04] MEDS ORDERED: INSULIN (NOVOLOG) ASPART 100 UNITS/ML 10ML VIAL ONE (21:20)
[2020-05-04] MEDS: CITALOPRAM HYDROBROMIDE 20 MG TABLET PO SCH (21:38)
[2020-05-04] MEDS: MIRTAZAPINE 15 MG TABLET (FP) PO SCH (21:38)
[2020-05-05] MEDS ORDERED: DEXTROSE 5%-WATER 100 ML IVPB ONE ×3 (02:30→17:30)
[2020-05-05] MEDS ORDERED: MEROPENEM 1 GM VIAL (RESTRICTED TO ID) IVPB ONE ×3 (02:30→17:30)
[2020-05-05] MEDS: MEROPENEM 1 GM in DEXTROSE 5%-WATER 100 ML IVPB SCH ×3 (02:39→17:33)
[2020-05-05] MEDS: PANTOPRAZOLE SOD 40 MG SUSPENSION PACKET PO SCH (06:10)
[2020-05-05] MEDS: INSULIN SLIDING SCALE (NOVOLOG) 1 VIAL SQ SCH ×4 (07:01→22:05)
[2020-05-05] MEDS ORDERED: PT OWN MED DRAWER 7, Y5N ONE ×2 (09:39→15:12)
[2020-05-05] MEDS: MULTIVIT-MINERALS ORAL LIQUID PO SCH (09:43)
[2020-05-05] MEDS: amLODIPine BESYLATE 2.5 MG TABLET (FP) PO SCH (09:44)
[2020-05-05] MEDS: ZINC SULFATE 220 MG CAPSULE (FP) PO SCH (09:45)
[2020-05-05] MEDS: ASCORBIC ACID 500 MG TABLET (FP) PO SCH ×2 (09:45→22:05)
[2020-05-05] MEDS: AMINO ACIDS/PROTEIN HYDROLYS 30 ML LIQUID.PKT PO SCH (09:45)
--- NOTE | 2020-05-05 11:19 | PN ---
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 (short form) - Note 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: Patient improved++ Awake recognizes my voice memory and orientated to person and place not time Wound still draining with lower dehissence No cellulitis. PLAN Continue Dressings Continue ID management as per Dr Ballard
[2020-05-05] MEDS: DAPTOMYCIN 500 MG in SODIUM CHLORIDE 50 ML IVPB SCH (15:18)
--- NOTE | 2020-05-05 18:52 | PN ---
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, Physician History of Present Illness: Pt is alert, responsive, comfortable. Remains afebrile. Denies having any specific complaints at this time. - Current Medication List Current Medications: Active Medications Acetaminophen (Tylenol -) 650 mg PO Q6H PRN PRN Reason: Fever Amino Acids (Prosource No Carb Liquid Pkt) 30 ml PO DAILY [facility] Last Admin: 05/05/20 09:45 Dose: 30 ml Documented by: Amlodipine Besylate (Norvasc -) 2.5 mg PO DAILY [facility] Last Admin: 05/05/20 09:44 Dose: 2.5 mg Documented by: Ascorbic Acid (Vitamin C -) 500 mg PO BID [facility] Last Admin: 05/05/20 09:45 Dose: 500 mg Documented by: Citalopram Hydrobromide (Celexa -) 20 mg PO HS [facility] Last Admin: 05/04/20 21:38 Dose: 20 mg Documented by: Meropenem 1 gm/ Dextrose 100 mls @ 200 mls/hr IVPB Q8H-IV [facility] Last Admin: 05/05/20 17:33 Dose: 200 mls/hr Documented by: Daptomycin 500 mg/ Sodium (Chloride) 50 mls @ 50 mls/hr IVPB Q24H [facility]; Protocol Last Admin: 05/05/20 15:18 Dose: 50 mls/hr Documented by: Insulin Aspart (Novolog Vial Sliding Scale -) 1 vial SQ ACHS [facility]; Protocol Last Admin: 05/05/20 16:41 Dose: Not Given Documented by: Mirtazapine (Remeron -) 7.5 mg PO HS [facility] Last Admin: 05/04/20 21:38 Dose: 7.5 mg Documented by: Multivitamins/Minerals (Certavite-Antioxidant Liquid) 15 ml PO DAILY [facility] Last Admin: 05/05/20 09:43 Dose: 15 ml Documented by: Pantoprazole Sodium (Protonix Packets For Oral Suspension -) 40 mg PO ACBK [facility] Last Admin: 05/05/20 06:10 Dose: 40 mg Documented by: Polyethylene Glycol (Miralax (For Daily Use) -) 17 gm PO BID PRN PRN Reason: CONSTIPATION Last Admin: 05/04/20 09:35 Dose: 17 gm Documented by: Senna/Docusate Sodium (Pericolace -) 1 tablet PO BID PRN PRN Reason: CONSTIPATION Zinc Sulfate (Orazinc -) 220 mg PO DAILY [facility] Stop: 05/06/20 09:59 Last Admin: 05/05/20 09:45 Dose: 220 mg Documented by: - Objective Vital Signs: Vital Signs Temperature 98.7 F 05/05/20 14:00 Pulse Rate 88 05/05/20 14:00 Respiratory Rate 20 05/05/20 14:00 Blood Pressure 144/73 05/05/20 14:00 O2 Sat by Pulse Oximetry (%) 100 05/05/20 08:30 Constitutional: Yes: No Distress, Calm Cardiovascular: Yes: Regular Rate and Rhythm Respiratory: Yes: Regular Gastrointestinal: Yes: Normal Bowel Sounds, Soft Genitourinary: Yes: [place] Present Wound/Incision: Yes: Dressing Dry and Intact Labs: CBC, BMP 05/04/20 06:45 05/04/20 06:45 INR, PTT INR 1.25 (0.83-1.09) H 04/25/20 06:00 Laboratory Last Values WBC 12.7 K/mm3 (4.0-10.0) H 05/04/20 06:45 RBC 3.46 M/mm3 (3.60-5.2) L 05/04/20 06:45 Hgb 9.5 GM/dL (10.7-15.3) L 05/04/20 06:45 Hct 29.2 % (32.4-45.2) L 05/04/20 06:45 MCV 84.4 fl (80-96) 05/04/20 06:45 MCH 27.5 pg (25.7-33.7) 05/04/20 06:45 MCHC 32.5 g/dl (32.0-36.0) 05/04/20 06:45 RDW 15.3 % (11.6-15.6) 05/04/20 06:45 Plt Count 401 K/MM3 (134-434) 05/04/20 06:45 MPV 8.3 fl (7.5-11.1) 05/04/20 06:45 Absolute Neuts (auto) 10.1 K/mm3 (1.5-8.0) H 05/04/20 06:45 Total Counted 100 04/23/20 05:40 Neutrophils % 79.8 % (42.8-82.8) 05/04/20 06:45 Neutrophils % (Manual) 88.9 % (42.8-82.8) H 04/25/20 06:00 Band Neutrophils % 0.0 % 04/25/20 06:00 Lymphocytes % 11.1 % (8-40) 05/04/20 06:45 Lymphocytes % (Manual) 5.1 % (8-40) L D 04/25/20 06:00 Monocytes % 5.7 % (3.8-10.2) 05/04/20 06:45 Monocytes % (Manual) 2 % (3.8-10.2) L 04/25/20 06:00 Eosinophils % 2.6 % (0-4.5) D 05/04/20 06:45 Eosinophils % (Manual) 1.0 % (0-4.5) 04/25/20 06:00 Basophils % 0.8 % (0-2.0) 05/04/20 06:45 Basophils % (Manual) 0.0 % (0-2.0) 04/25/20 06:00 Myelocytes % (Man) 2 % (0-2) D 04/25/20 06:00 Promyelocytes % (Man) 0 % (0-2) 04/25/20 06:00 Blast Cells % (Manual) 0 % (0-0) 04/25/20 06:00 Nucleated RBC % 0 % (0-0) 05/04/20 06:45 Metamyelocytes 0 % (0-2) 04/25/20 06:00 Hypochromia 2+ 04/25/20 06:00 Platelet Estimate Increased 04/25/20 06:00 Platelet Comment Present 04/12/20 08:40 Polychromasia 1+ 04/25/20 06:00 Poikilocytosis 0 04/25/20 06:00 Anisocytosis 1+ 04/25/20 06:00 Microcytosis 1+ 04/25/20 06:00 Macrocytosis 1+ 04/25/20 06:00 Target Cells 1+ 04/18/20 06:30 Retic Count 0.98 % (0.5-1.5) 04/20/20 05:40 PT with INR 14.80 SEC (9.7-13.0) H 04/25/20 06:00 INR 1.25 (0.83-1.09) H 04/25/20 06:00 PTT (Actin FS) 35.7 SECONDS (25.2-36.5) 04/25/20 06:00 Anticoagulation Therapy No Result Required. 04/20/20 05:48 Puncture Site Right radial 04/20/20 05:48 Patient Temperature No Result Required. 04/20/20 05:48 ABG pH 7.398 (7.350-7.450) 04/20/20 05:48 ABG pCO2 43.50 mmHg (35-45) 04/20/20 05:48 ABG pO2 106.6 mmHg (80-100) H 04/20/20 05:48 ABG HCO3 26.2 mmol/L (22-27) 04/20/20 05:48 ABG O2 Sat (Measured) 97.9 mmHg (95-98) 04/20/20 05:48 ABG O2 Content No Result Required. 04/20/20 05:48 ABG Base Excess 1.2 mmol/L (-2-2) 04/20/20 05:48 Yeyo Test Positive 04/20/20 05:48 Patient On Oxygen Yes 04/20/20 05:48 O2 Delivery Device N/c 04/20/20 05:48 Oxygen Flow Rate 2.5l 04/20/20 05:48 Vent Mode No Result Required. 04/20/20 05:48 Vent Rate No Result Required. 04/20/20 05:48 Mechanical Rate No Result Required. 04/20/20 05:48 PEEP No Result Required. 04/20/20 05:48 Pressure Support Vent No Result Required. 04/20/20 05:48 Sodium 141 mmol/L (136-145) 05/04/20 06:45 Potassium 4.6 mmol/L (3.5-5.1) 05/04/20 06:45 Chloride 107 mmol/L (98-107) 05/04/20 06:45 Carbon Dioxide 27 mmol/L (21-32) 05/04/20 06:45 Anion Gap 8 MMOL/L (8-16) 05/04/20 06:45 BUN 21.4 mg/dL (7-18) H 05/04/20 06:45 Creatinine 0.9 mg/dL (0.55-1.3) 05/04/20 06:45 Est GFR (CKD-EPI)AfAm 71.48 05/04/20 06:45 Est GFR (CKD-EPI)NonAf 61.67 05/04/20 06:45 POC Glucometer 110 UNITS (80-120) 05/05/20 16:40 Random Glucose 81 mg/dL (74-106) 05/04/20 06:45 Lactic Acid 0.9 mmol/L (0.4-2.0) 04/17/20 12:10 Calcium 9.1 mg/dL (8.5-10.1) 05/04/20 06:45 Phosphorus 3.2 mg/dL (2.5-4.9) 04/30/20 08:18 Magnesium 2.2 mg/dL (1.8-2.4) 05/04/20 06:45 Iron 64 ug/dL (50-175) 04/20/20 05:40 TIBC 108 ug/dL (250-450) L 04/20/20 05:40 Iron Saturation 59 % (17.5-39) H 04/20/20 05:40 Unsaturated IBC 44 ug/dL (200-275) L 04/20/20 05:40 Ferritin 836.1 ng/ml (8-388) H 04/20/20 05:40 Total Bilirubin 0.3 mg/dL (0.2-1) 05/04/20 06:45 AST 26 U/L (15-37) 05/04/20 06:45 ALT 24 U/L (13-61) 05/04/20 06:45 Alkaline Phosphatase 99 U/L (45-117) 05/04/20 06:45 Total Protein 6.5 g/dl (6.4-8.2) 05/04/20 06:45 Total Protein (PEP) 5.7 g/dL (6.0-8.5) L 04/20/20 05:40 Albumin 2.0 g/dl (3.4-5.0) L 05/04/20 06:45 Albumin (PEP) 2.2 gm/dl (2.9-4.4) L 04/20/20 05:40 Globulin 3.5 g/dL (2.2-3.9) 04/20/20 05:40 Albumin/Globulin Ratio 0.6 (0.7-1.7) L 04/20/20 05:40 Beta Globulins 0.7 gm/dL (0.7-1.3) 04/20/20 05:40 Triglycerides 255 mg/dL (0-150) H 04/20/20 05:40 Cholesterol 145 mg/dL (50-200) 04/20/20 05:40 Total LDL Cholesterol 75 mg/dL (5-100) 04/20/20 05:40 HDL Cholesterol 15 mg/dL (40-60) L 04/20/20 05:40 Total Amylase 120 U/L (25-115) H 04/20/20 05:40 Lipase 264 U/L (73-393) 04/20/20 05:40 Urine Color Yellow 04/17/20 12:05 Urine Appearance Clear 04/17/20 12:05 Urine pH 6.0 (5.0-8.0) 04/17/20 12:05 Ur Specific [place] 1.021 (1.010-1.035) 04/17/20 12:05 Urine Protein Trace (NEGATIVE) 04/17/20 12:05 Urine Glucose (UA) Negative (NEGATIVE) 04/17/20 12:05 Urine Ketones 2+ (NEGATIVE) H 04/17/20 12:05 Urine Blood Negative (NEGATIVE) 04/17/20 12:05 Urine Nitrite Positive (NEGATIVE) H 04/17/20 12:05 Urine Bilirubin Negative (NEGATIVE) 04/17/20 12:05 Urine Urobilinogen 1.0 mg/dL (0.2-1.0) 04/17/20 12:05 Ur Leukocyte Esterase 1+ (NEGATIVE) H 04/17/20 12:05 Urine WBC (Auto) 209 /uL (0-25.8) 04/17/20 12:05 Urine RBC (Auto) 4 /uL (0-23.9) 04/17/20 12:05 Urine Casts (Auto) 17 /uL (0-3.1) 04/17/20 12:05 U Pathogenic Cast Auto Wbc granular casts /lpf (NEGATIVE) 04/17/20 12:05 U Epithel Cells (Auto) 4 /uL (0-25.1) 04/17/20 12:05 Urine Bacteria (Auto) 2252 /uL (0-1359) 04/17/20 12:05 Stool Occult Blood Negative (NEGATIVE) 04/28/20 22:25 Random Vancomycin 11.6 ug/ml (5-26) 04/23/20 05:40 Vancomycin Pre-Dose 26.1 ug/ml (5-10) H 04/21/20 12:40 IAN M-Yasmani Not observed g/dL (Not Observed) 04/20/20 05:40 COVID-19 (ESTER) Not detected (Not Detected) 04/24/20 15:00 Blood Type O POSITIVE 04/24/20 14:45 Antibody Screen Negative 04/24/20 14:45 Crossmatch See Detail 04/24/20 14:45 Microbiology 04/28/20 22:45 Stool Gram Stain - Final 04/28/20 22:45 Stool Clostridioides difficile Antigen - Final 04/28/20 22:45 Stool Clostridioides difficile Toxin Assay - Final 04/25/20 16:29 Back Gram Stain - Final 04/25/20 16:29 Back Wound Culture - Final Staphylococcus Coagulase Neg 04/23/20 13:12 Back Gram Stain - Final 04/23/20 13:12 Back Wound Culture - Final Pseudomonas Aeruginosa Vr Ec Faecalis 04/19/20 10:18 Blood - Peripheral Venous Blood Culture - Final NO GROWTH AFTER 5 DAYS INCUBATION 04/19/20 10:11 Blood - Peripheral Venous Blood Culture - Final NO GROWTH AFTER 5 DAYS INCUBATION 04/20/20 15:08 Back Gram Stain - Final 04/20/20 15:08 Back Wound Culture - Final Escherichia Coli Vr Ec Faecalis 04/18/20 17:34 Wound Gram Stain - Final 04/18/20 17:34 Wound Wound Culture - Final Vr Ec Faecalis Escherichia Coli Citrobacter Murliniae 04/17/20 12:14 Blood - Peripheral Venous Blood Culture - Final Non Lactose Fermenting Gnb 04/17/20 12:05 Urine - Urine - Catheterized Urine Culture - Final Pseudomonas Aeruginosa 04/17/20 12:10 Blood - Peripheral Venous Blood Culture - Final Escherichia Coli Problem List - Problems (1) Severe sepsis Code(s): A41.9 - SEPSIS, UNSPECIFIED ORGANISM; R65.20 - SEVERE SEPSIS WITHOUT SEPTIC SHOCK (2) Bacteremia due to Gram-negative bacteria Code(s): R78.81 - BACTEREMIA (3) Status post spinal surgery Code(s): Z98.890 - OTHER SPECIFIED POSTPROCEDURAL STATES (4) Toxic metabolic encephalopathy Code(s): G92 - TOXIC ENCEPHALOPATHY (5) Urinary tract infection Code(s): N39.0 - URINARY TRACT INFECTION, SITE NOT SPECIFIED Qualifiers: Urinary tract infection type: site unspecified Hematuria presence: without hematuria Qualified Code(s): N39.0 - Urinary tract infection, site not specified Assessment/Plan Severe Sepsis - resolved Gram negative/E. coli Bacteremia Pseudomonas UTI s/p lumbar wound I+D, s/p washout -- wbc trending down, afebrile -- continue Meropenem/Daptomycin (culture results reviewed) -- check CPK, monitor weekly -- Orthopedics following continue monitoring, wound care
[2020-05-05] MEDS: CITALOPRAM HYDROBROMIDE 20 MG TABLET PO SCH (22:06)
[2020-05-05] MEDS: MIRTAZAPINE 15 MG TABLET (FP) PO SCH (22:06)
[2020-05-06] MEDS ORDERED: MEROPENEM 1 GM VIAL (RESTRICTED TO ID) IVPB ONE ×3 (01:34→17:12)
[2020-05-06] MEDS ORDERED: DEXTROSE 5%-WATER 100 ML IVPB ONE ×3 (01:34→17:12)
[2020-05-06] MEDS: MEROPENEM 1 GM in DEXTROSE 5%-WATER 100 ML IVPB SCH ×3 (01:35→17:16)
[2020-05-06] MEDS: INSULIN SLIDING SCALE (NOVOLOG) 1 VIAL SQ SCH ×4 (06:14→22:28)
[2020-05-06] MEDS: PANTOPRAZOLE SOD 40 MG SUSPENSION PACKET PO SCH (06:15)
[2020-05-06] MEDS ORDERED: PT OWN MED DRAWER 7, Y5N ONE ×2 (09:29→16:28)
[2020-05-06] MEDS: MULTIVIT-MINERALS ORAL LIQUID PO SCH (09:48)
[2020-05-06] MEDS: ASCORBIC ACID 500 MG TABLET (FP) PO SCH ×2 (09:49→22:28)
[2020-05-06] MEDS: AMINO ACIDS/PROTEIN HYDROLYS 30 ML LIQUID.PKT PO SCH ×3 (09:49→22:28)
[2020-05-06] MEDS: amLODIPine BESYLATE 2.5 MG TABLET (FP) PO SCH (09:49)
--- NOTE | 2020-05-06 13:23 | PN ---
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, Physician Chief Complaint: Seen and examined in bed. Appetite greatly improved. Dietary following. Remains on IV abx-chcf. Family requesting home with VNS History of Present Illness: 79 year old female with history of hypertension, dementia, depression, spinal stenosis, neuropathy she is s/p removal of L3-L5 hardware, including L4-L5 intervertebral cage, L3-S1 laminectomy, L5-S1 PLIF, L3-S1 posterior instrumented spinal fusion. She is s/p multiple washouts for infected hardware. - Current Medication List Current Medications: Active Medications Acetaminophen (Tylenol -) 650 mg PO Q6H PRN PRN Reason: Fever Amino Acids (Prosource No Carb Liquid Pkt) 30 ml PO TID [facility] Amlodipine Besylate (Norvasc -) 2.5 mg PO DAILY [facility] Last Admin: 05/06/20 09:49 Dose: 2.5 mg Documented by: Ascorbic Acid (Vitamin C -) 500 mg PO BID [facility] Last Admin: 05/06/20 09:49 Dose: 500 mg Documented by: Citalopram Hydrobromide (Celexa -) 20 mg PO HS [facility] Last Admin: 05/05/20 22:06 Dose: 20 mg Documented by: Meropenem 1 gm/ Dextrose 100 mls @ 200 mls/hr IVPB Q8H-IV [facility] Last Admin: 05/06/20 09:50 Dose: 200 mls/hr Documented by: Daptomycin 500 mg/ Sodium (Chloride) 50 mls @ 50 mls/hr IVPB Q24H [facility]; Protocol Last Admin: 05/05/20 15:18 Dose: 50 mls/hr Documented by: Insulin Aspart (Novolog Vial Sliding Scale -) 1 vial SQ ACHS [facility]; Protocol Last Admin: 05/06/20 11:48 Dose: Not Given Documented by: Mirtazapine (Remeron -) 7.5 mg PO HS [facility] Last Admin: 05/05/20 22:06 Dose: 7.5 mg Documented by: Multivitamins/Minerals (Certavite-Antioxidant Liquid) 15 ml PO DAILY [facility] Last Admin: 05/06/20 09:48 Dose: 15 ml Documented by: Pantoprazole Sodium (Protonix Packets For Oral Suspension -) 40 mg PO ACBK [facility] Last Admin: 05/06/20 06:15 Dose: 40 mg Documented by: Polyethylene Glycol (Miralax (For Daily Use) -) 17 gm PO BID PRN PRN Reason: CONSTIPATION Last Admin: 05/04/20 09:35 Dose: 17 gm Documented by: Senna/Docusate Sodium (Pericolace -) 1 tablet PO BID PRN PRN Reason: CONSTIPATION - Objective Vital Signs: Vital Signs Temperature 98.1 F 05/06/20 08:40 Pulse Rate 82 05/06/20 08:40 Respiratory Rate 20 05/06/20 08:40 Blood Pressure 148/77 05/06/20 08:40 O2 Sat by Pulse Oximetry (%) 98 05/06/20 08:40 Additional Findings/Remarks: Constitutional: Yes: Well Nourished, No Distress, Calm Eyes: Yes: WNL, Conjunctiva Clear. Legally blind HENT: Yes: WNL, Atraumatic, Normocephalic Neck: Yes: WNL, Supple, Trachea Midline Cardiovascular: Yes: WNL, Regular Rate and Rhythm Respiratory: Yes: WNL, Regular, CTA Bilaterally, Diminished, On Nasal O2 (2l) Gastrointestinal: Yes: WNL, Normal Bowel Sounds ...Rectal Exam: Yes: Deferred Genitourinary: Yes: WNL Breast(s): Yes: WNL Musculoskeletal: Yes: WNL Extremities: Yes: WNL Edema: No Peripheral Pulses WNL: Yes Peripheral Pulses: Left Radial: 2+, Right Radial: 2+, Left Doralis Pedis: 2+, Right Dorsalis Pedis: 2+, Left Femoral: 2+, Right Femoral: 2+ Integumentary: Yes: WNL Neurological: Yes: Alert, Oriented, Other (forgetful) ...Motor Strength: WNL Psychiatric: Yes: Alert Labs: CBC, BMP 05/04/20 06:45 05/04/20 06:45 INR, PTT INR 1.25 (0.83-1.09) H 04/25/20 06:00 Problem List - Problems (1) COVID-19 ruled out Assessment/Plan: PCR negative Code(s): Z03.818 - ENCNTR FOR OBS FOR SUSP EXPSR TO OTH BIOLG AGENTS RULED OUT (2) Dementia Assessment/Plan: supportive care Code(s): F03.90 - UNSPECIFIED DEMENTIA WITHOUT BEHAVIORAL DISTURBANCE (3) Depression Assessment/Plan: supportive care Code(s): F32.9 - MAJOR DEPRESSIVE DISORDER, SINGLE EPISODE, UNSPECIFIED (4) Hypertension Assessment/Plan: mormotensive c/w norvasc Code(s): I10 - ESSENTIAL (PRIMARY) HYPERTENSION (5) Poor appetite Assessment/Plan: improved prosource TID c/w supplements-ensure pudding Code(s): R63.0 - ANOREXIA (6) Prophylactic measure Assessment/Plan: FEN Fluids: improved PO intake Electrolytes: monitor & replete as need Nut:dys diet DVT no AC Dispo Maintain as inpatient full code discharge planning to home with VNS as per family wishes Code(s): Z29.9 - ENCOUNTER FOR PROPHYLACTIC MEASURES, UNSPECIFIED (7) Status post spinal surgery Assessment/Plan: Wound culture from 04/23/2020 grew pseudomonas resistant to zosyn and VRE sentivie to daptomycin. Continue daptomycin and meropenem. ID following. will need PICC on dc for terminal carman abx monitor WBC, fevers, vitals leukocytosis improving Code(s): Z98.890 - OTHER SPECIFIED POSTPROCEDURAL STATES (8) Malnutrition Assessment/Plan: c/w nutritional supplements calorie count completed-meets 73% calories, 61% protein Code(s): E46 - UNSPECIFIED PROTEIN-CALORIE MALNUTRITION (9) Severe sepsis Assessment/Plan: spinal stenosis POD #27 s/p removal of L3-L5 hardware, including L4-L5 intervertebral cage, L3-S1 laminectomy, L5-S1 PLIF, L3-S1 posterior instrumented spinal fusion. s/p multiple washouts. c/w daptomycin and meropenem per ID surgery following pain control monitor vitals, labs, mental status Code(s): A41.9 - SEPSIS, UNSPECIFIED ORGANISM; R65.20 - SEVERE SEPSIS WITHOUT SEPTIC SHOCK (10) Toxic metabolic encephalopathy Assessment/Plan: multifactorial mental status has improved and patient able to answer questions appropriately AMS likely secondary to sepsis Code(s): G92 - TOXIC ENCEPHALOPATHY (11) Leukocytosis Assessment/Plan: continues to imrpove afebrile wbc 12.7 c/t trend c/w abx Code(s): D72.829 - ELEVATED WHITE BLOOD CELL COUNT, UNSPECIFIED (12) Thrombocytosis Assessment/Plan: plt 401 most likely r/t sepsis c/t trend Code(s): D47.3 - ESSENTIAL (HEMORRHAGIC) THROMBOCYTHEMIA Visit type - Emergency Visit Emergency Visit: Yes ED Registration Date: 04/09/20 Care time: The patient presented to the Emergency Department on the above date and was hospitalized for further evaluation of their emergent condition. - New Patient This patient is new to me today: No - Critical Care Critical Care patient: No - Discharge Referral Referred to [facility] No - Medication Review Med list reviewed for High Risk Meds patients 65 and older: Yes
[2020-05-06] MEDS: ACETAMINOPHEN 325 MG TABLET (FP) PO PRN (15:38)
[2020-05-06] MEDS: DAPTOMYCIN 500 MG in SODIUM CHLORIDE 50 ML IVPB SCH (16:31)
--- NOTE | 2020-05-06 20:53 | PN ---
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, Physician History of Present Illness: Pt afebrile, comfortable. - Current Medication List Current Medications: Active Medications Acetaminophen (Tylenol -) 650 mg PO Q6H PRN PRN Reason: Fever Last Admin: 05/06/20 15:38 Dose: 650 mg Documented by: Amino Acids (Prosource No Carb Liquid Pkt) 30 ml PO TID [facility] Last Admin: 05/06/20 13:43 Dose: 30 ml Documented by: Amlodipine Besylate (Norvasc -) 2.5 mg PO DAILY [facility] Last Admin: 05/06/20 09:49 Dose: 2.5 mg Documented by: Ascorbic Acid (Vitamin C -) 500 mg PO BID [facility]CLUD[facility] Last Admin: 05/06/20 09:49 Dose: 500 mg Documented by: Citalopram Hydrobromide (Celexa -) 20 mg PO HS [facility] Last Admin: 05/05/20 22:06 Dose: 20 mg Documented by: Meropenem 1 gm/ Dextrose 100 mls @ 200 mls/hr IVPB Q8H-IV [facility]CLUDES [facility] Last Admin: 05/06/20 17:16 Dose: 200 mls/hr Documented by: Daptomycin 500 mg/ Sodium (Chloride) 50 mls @ 50 mls/hr IVPB Q24H [facility]; Protocol Last Admin: 05/06/20 16:31 Dose: 50 mls/hr Documented by: Insulin Aspart (Novolog Vial Sliding Scale -) 1 vial SQ ACHS [facility]CLUDES [facility]; Protocol Last Admin: 05/06/20 16:39 Dose: Not Given Documented by: Mirtazapine (Remeron -) 7.5 mg PO [facility] Last Admin: 05/05/20 22:06 Dose: 7.5 mg Documented by: Multivitamins/Minerals (Certavite-Antioxidant Liquid) 15 ml PO DAILY [facility] Last Admin: 05/06/20 09:48 Dose: 15 ml Documented by: Pantoprazole Sodium (Protonix Packets For Oral Suspension -) 40 mg PO ACBK COUNT [facility]CLUDES [facility] Last Admin: 05/06/20 06:15 Dose: 40 mg Documented by: Polyethylene Glycol (Miralax (For Daily Use) -) 17 gm PO BID PRN PRN Reason: CONSTIPATION Last Admin: 05/04/20 09:35 Dose: 17 gm Documented by: Senna/Docusate Sodium (Pericolace -) 1 tablet PO BID PRN PRN Reason: CONSTIPATION - Objective Vital Signs: Vital Signs Temperature 98.3 F 05/06/20 14:00 Pulse Rate 89 05/06/20 14:00 Respiratory Rate 20 05/06/20 14:00 Blood Pressure 158/78 05/06/20 14:00 O2 Sat by Pulse Oximetry (%) 98 05/06/20 08:40 Constitutional: Yes: No Distress, Calm Cardiovascular: Yes: Regular Rate and Rhythm Respiratory: Yes: Regular Gastrointestinal: Yes: Normal Bowel Sounds, Soft Genitourinary: Yes: [place] Present Integumentary: Yes: WNL Wound/Incision: Yes: Dressing Dry and Intact Neurological: Yes: Alert Labs: CBC, BMP 05/04/20 06:45 05/04/20 06:45 INR, PTT INR 1.25 (0.83-1.09) H 04/25/20 06:00 Laboratory Last Values WBC 12.7 K/mm3 (4.0-10.0) H 05/04/20 06:45 RBC 3.46 M/mm3 (3.60-5.2) L 05/04/20 06:45 Hgb 9.5 GM/dL (10.7-15.3) L 05/04/20 06:45 Hct 29.2 % (32.4-45.2) L 05/04/20 06:45 MCV 84.4 fl (80-96) 05/04/20 06:45 MCH 27.5 pg (25.7-33.7) 05/04/20 06:45 MCHC 32.5 g/dl (32.0-36.0) 05/04/20 06:45 RDW 15.3 % (11.6-15.6) 05/04/20 06:45 Plt Count 401 K/MM3 (134-434) 05/04/20 06:45 MPV 8.3 fl (7.5-11.1) 05/04/20 06:45 Absolute Neuts (auto) 10.1 K/mm3 (1.5-8.0) H 05/04/20 06:45 Total Counted 100 04/23/20 05:40 Neutrophils % 79.8 % (42.8-82.8) 05/04/20 06:45 Neutrophils % (Manual) 88.9 % (42.8-82.8) H 04/25/20 06:00 Band Neutrophils % 0.0 % 04/25/20 06:00 Lymphocytes % 11.1 % (8-40) 05/04/20 06:45 Lymphocytes % (Manual) 5.1 % (8-40) L D 04/25/20 06:00 Monocytes % 5.7 % (3.8-10.2) 05/04/20 06:45 Monocytes % (Manual) 2 % (3.8-10.2) L 04/25/20 06:00 Eosinophils % 2.6 % (0-4.5) D 05/04/20 06:45 Eosinophils % (Manual) 1.0 % (0-4.5) 04/25/20 06:00 Basophils % 0.8 % (0-2.0) 05/04/20 06:45 Basophils % (Manual) 0.0 % (0-2.0) 04/25/20 06:00 Myelocytes % (Man) 2 % (0-2) D 04/25/20 06:00 Promyelocytes % (Man) 0 % (0-2) 04/25/20 06:00 Blast Cells % (Manual) 0 % (0-0) 04/25/20 06:00 Nucleated RBC % 0 % (0-0) 05/04/20 06:45 Metamyelocytes 0 % (0-2) 04/25/20 06:00 Hypochromia 2+ 04/25/20 06:00 Platelet Estimate Increased 04/25/20 06:00 Platelet Comment Present 04/12/20 08:40 Polychromasia 1+ 04/25/20 06:00 Poikilocytosis 0 04/25/20 06:00 Anisocytosis 1+ 04/25/20 06:00 Microcytosis 1+ 04/25/20 06:00 Macrocytosis 1+ 04/25/20 06:00 Target Cells 1+ 04/18/20 06:30 Retic Count 0.98 % (0.5-1.5) 04/20/20 05:40 PT with INR 14.80 SEC (9.7-13.0) H 04/25/20 06:00 INR 1.25 (0.83-1.09) H 04/25/20 06:00 PTT (Actin FS) 35.7 SECONDS (25.2-36.5) 04/25/20 06:00 Anticoagulation Therapy No Result Required. 04/20/20 05:48 Puncture Site Right radial 04/20/20 05:48 Patient Temperature No Result Required. 04/20/20 05:48 ABG pH 7.398 (7.350-7.450) 04/20/20 05:48 ABG pCO2 43.50 mmHg (35-45) 04/20/20 05:48 ABG pO2 106.6 mmHg (80-100) H 04/20/20 05:48 ABG HCO3 26.2 mmol/L (22-27) 04/20/20 05:48 ABG O2 Sat (Measured) 97.9 mmHg (95-98) 04/20/20 05:48 ABG O2 Content No Result Required. 04/20/20 05:48 ABG Base Excess 1.2 mmol/L (-2-2) 04/20/20 05:48 Yeyo Test Positive 04/20/20 05:48 Patient On Oxygen Yes 04/20/20 05:48 O2 Delivery Device N/c 04/20/20 05:48 Oxygen Flow Rate 2.5l 04/20/20 05:48 Vent Mode No Result Required. 04/20/20 05:48 Vent Rate No Result Required. 04/20/20 05:48 Mechanical Rate No Result Required. 04/20/20 05:48 PEEP No Result Required. 04/20/20 05:48 Pressure Support Vent No Result Required. 04/20/20 05:48 Sodium 141 mmol/L (136-145) 05/04/20 06:45 Potassium 4.6 mmol/L (3.5-5.1) 05/04/20 06:45 Chloride 107 mmol/L (98-107) 05/04/20 06:45 Carbon Dioxide 27 mmol/L (21-32) 05/04/20 06:45 Anion Gap 8 MMOL/L (8-16) 05/04/20 06:45 BUN 21.4 mg/dL (7-18) H 05/04/20 06:45 Creatinine 0.9 mg/dL (0.55-1.3) 05/04/20 06:45 Est GFR (CKD-EPI)AfAm 71.48 05/04/20 06:45 Est GFR (CKD-EPI)NonAf 61.67 05/04/20 06:45 POC Glucometer 104 UNITS (80-120) 05/06/20 16:33 Random Glucose 81 mg/dL (74-106) 05/04/20 06:45 Lactic Acid 0.9 mmol/L (0.4-2.0) 04/17/20 12:10 Calcium 9.1 mg/dL (8.5-10.1) 05/04/20 06:45 Phosphorus 3.2 mg/dL (2.5-4.9) 04/30/20 08:18 Magnesium 2.2 mg/dL (1.8-2.4) 05/04/20 06:45 Iron 64 ug/dL (50-175) 04/20/20 05:40 TIBC 108 ug/dL (250-450) L 04/20/20 05:40 Iron Saturation 59 % (17.5-39) H 04/20/20 05:40 Unsaturated IBC 44 ug/dL (200-275) L 04/20/20 05:40 Ferritin 836.1 ng/ml (8-388) H 04/20/20 05:40 Total Bilirubin 0.3 mg/dL (0.2-1) 05/04/20 06:45 AST 26 U/L (15-37) 05/04/20 06:45 ALT 24 U/L (13-61) 05/04/20 06:45 Alkaline Phosphatase 99 U/L (45-117) 05/04/20 06:45 Creatine Kinase 99 U/L (26-192) 05/06/20 06:40 Total Protein 6.5 g/dl (6.4-8.2) 05/04/20 06:45 Total Protein (PEP) 5.7 g/dL (6.0-8.5) L 04/20/20 05:40 Albumin 2.0 g/dl (3.4-5.0) L 05/04/20 06:45 Albumin (PEP) 2.2 gm/dl (2.9-4.4) L 04/20/20 05:40 Globulin 3.5 g/dL (2.2-3.9) 04/20/20 05:40 Albumin/Globulin Ratio 0.6 (0.7-1.7) L 04/20/20 05:40 Beta Globulins 0.7 gm/dL (0.7-1.3) 04/20/20 05:40 Triglycerides 255 mg/dL (0-150) H 04/20/20 05:40 Cholesterol 145 mg/dL (50-200) 04/20/20 05:40 Total LDL Cholesterol 75 mg/dL (5-100) 04/20/20 05:40 HDL Cholesterol 15 mg/dL (40-60) L 04/20/20 05:40 Total Amylase 120 U/L (25-115) H 04/20/20 05:40 Lipase 264 U/L (73-393) 04/20/20 05:40 Urine Color Yellow 04/17/20 12:05 Urine Appearance Clear 04/17/20 12:05 Urine pH 6.0 (5.0-8.0) 04/17/20 12:05 Ur Specific [place] 1.021 (1.010-1.035) 04/17/20 12:05 Urine Protein Trace (NEGATIVE) 04/17/20 12:05 Urine Glucose (UA) Negative (NEGATIVE) 04/17/20 12:05 Urine Ketones 2+ (NEGATIVE) H 04/17/20 12:05 Urine Blood Negative (NEGATIVE) 04/17/20 12:05 Urine Nitrite Positive (NEGATIVE) H 04/17/20 12:05 Urine Bilirubin Negative (NEGATIVE) 04/17/20 12:05 Urine Urobilinogen 1.0 mg/dL (0.2-1.0) 04/17/20 12:05 Ur Leukocyte Esterase 1+ (NEGATIVE) H 04/17/20 12:05 Urine WBC (Auto) 209 /uL (0-25.8) 04/17/20 12:05 Urine RBC (Auto) 4 /uL (0-23.9) 04/17/20 12:05 Urine Casts (Auto) 17 /uL (0-3.1) 04/17/20 12:05 U Pathogenic Cast Auto Wbc granular casts /lpf (NEGATIVE) 04/17/20 12:05 U Epithel Cells (Auto) 4 /uL (0-25.1) 04/17/20 12:05 Urine Bacteria (Auto) 2252 /uL (0-1359) 04/17/20 12:05 Stool Occult Blood Negative (NEGATIVE) 04/28/20 22:25 Random Vancomycin 11.6 ug/ml (5-26) 04/23/20 05:40 Vancomycin Pre-Dose 26.1 ug/ml (5-10) H 04/21/20 12:40 IAN M-Yasmani Not observed g/dL (Not Observed) 04/20/20 05:40 COVID-19 (ESTER) Not detected (Not Detected) 04/24/20 15:00 Blood Type O POSITIVE 04/24/20 14:45 Antibody Screen Negative 04/24/20 14:45 Crossmatch See Detail 04/24/20 14:45 Problem List - Problems (1) Severe sepsis Code(s): A41.9 - SEPSIS, UNSPECIFIED ORGANISM; R65.20 - SEVERE SEPSIS WITHOUT SEPTIC SHOCK (2) Bacteremia due to Gram-negative bacteria Code(s): R78.81 - BACTEREMIA (3) Status post spinal surgery Code(s): Z98.890 - OTHER SPECIFIED POSTPROCEDURAL STATES (4) Toxic metabolic encephalopathy Code(s): G92 - TOXIC ENCEPHALOPATHY (5) Urinary tract infection Code(s): N39.0 - URINARY TRACT INFECTION, SITE NOT SPECIFIED Qualifiers: Urinary tract infection type: site unspecified Hematuria presence: without hematuria Qualified Code(s): N39.0 - Urinary tract infection, site not specified Assessment/Plan Severe Sepsis - resolved Gram negative/E. coli Bacteremia Pseudomonas UTI Wound infection s/p lumbar wound I+D, s/p washout -- pt stable/afebrile -- continue Meropenem/Daptomycin -- CPK normal, check weekly while on Daptomycin -- Orthopedics following continue monitoring, wound care
[2020-05-06] MEDS: MIRTAZAPINE 15 MG TABLET (FP) PO SCH (22:27)
[2020-05-06] MEDS: CITALOPRAM HYDROBROMIDE 20 MG TABLET PO SCH (22:28)
[2020-05-07] MEDS ORDERED: MEROPENEM 1 GM VIAL (RESTRICTED TO ID) IVPB ONE ×3 (01:01→17:21)
[2020-05-07] MEDS ORDERED: DEXTROSE 5%-WATER 100 ML IVPB ONE ×3 (01:01→17:21)
[2020-05-07] MEDS: MEROPENEM 1 GM in DEXTROSE 5%-WATER 100 ML IVPB SCH ×3 (01:07→17:37)
[2020-05-07] MEDS: PANTOPRAZOLE SOD 40 MG SUSPENSION PACKET PO SCH (06:03)
[2020-05-07] MEDS: INSULIN SLIDING SCALE (NOVOLOG) 1 VIAL SQ SCH ×4 (06:03→21:12)
[2020-05-07] MEDS: AMINO ACIDS/PROTEIN HYDROLYS 30 ML LIQUID.PKT PO SCH ×3 (06:03→21:15)
[2020-05-07 07:54] LABS: BASO % 0.7 % (0-2.0); EOS % 4.2 % (0-4.5); HEMATOCRIT 30.5 % (32.4-45.2); HEMOGLOBIN 9.7 GM/dL (10.7-15.3); LYMPH % 13.2 % (8-40); MCH 26.6 pg (25.7-33.7); MCHC 31.9 g/dl (32.0-36.0); MEAN CELL VOLUME 83.3 fl (80-96); MEAN PLT VOLUME 8.7 fl (7.5-11.1); MONO % 5.3 % (3.8-10.2); NEUT % 76.6 % (42.8-82.8); PLATELET COUNT 397 K/MM3 (134-434); RBC 3.66 M/mm3 (3.60-5.2); RDW 15.5 % (11.6-15.6); WHITE BLOOD COUNT 11.6 K/mm3 (4.0-10.0)
[2020-05-07 08:05] LABS: ALBUMIN 2.2 g/dl (3.4-5.0); BILIRUBIN,TOTAL 0.4 mg/dL (0.2-1); BLOOD UREA NITROGEN 25.4 mg/dL (7-18); CALCIUM 9.5 mg/dL (8.5-10.1); CREATININE 0.7 mg/dL (0.55-1.3); POTASSIUM 4.2 mmol/L (3.5-5.1); TOT PROT 6.8 g/dl (6.4-8.2)
--- NOTE | 2020-05-07 09:08 | PN ---
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, Physician Chief Complaint: Patient remained at baseline History of Present Illness: 79-year-old female history of hypertension, dementia depression spinal stenosis underwent L3 5 spinal surgery 8 years ago that got infected, admitted at [facility] underwent hardware removal of L3-L5 hardware, including L4-L5 intervertebral cage, L3-S1 laminectomy, L5-S1 PLIF, L3-S1 posterior instrumented spinal fusion. On April 09, 2020 at [facility] subsequently had a prolonged complicated hospital course developed Pseudomonas UTI, E. coli sepsis and VRE and E. coli in the wound, currently on daptomycin and meropenem as per ID recommendation, patient remained afebrile, considering deconditioning and poor nutrition evaluated by speech and swallow recommended PEG placement but family refused, currently on pured diet, cleared by orthopedic to discharge to subacute rehab. - Current Medication List Current Medications: Active Medications Acetaminophen (Tylenol -) 650 mg PO Q6H PRN PRN Reason: Fever Last Admin: 05/06/20 15:38 Dose: 650 mg Documented by: Amino Acids (Prosource No Carb Liquid Pkt) 30 ml PO TID [facility] Last Admin: 05/07/20 06:03 Dose: 30 ml Documented by: Amlodipine Besylate (Norvasc -) 2.5 mg PO DAILY [facility] Last Admin: 05/06/20 09:49 Dose: 2.5 mg Documented by: Ascorbic Acid (Vitamin C -) 500 mg PO BID [facility] Last Admin: 05/06/20 22:28 Dose: 500 mg Documented by: Citalopram Hydrobromide (Celexa -) 20 mg PO [facility] Last Admin: 05/06/20 22:28 Dose: 20 mg Documented by: Meropenem 1 gm/ Dextrose 100 mls @ 200 mls/hr IVPB Q8H-IV [facility] Last Admin: 05/07/20 01:07 Dose: 200 mls/hr Documented by: Daptomycin 500 mg/ Sodium (Chloride) 50 mls @ 50 mls/hr IVPB Q24H [facility]; Protocol Last Admin: 05/06/20 16:31 Dose: 50 mls/hr Documented by: Insulin Aspart (Novolog Vial Sliding Scale -) 1 vial SQ ACHS [facility]; Protocol Last Admin: 05/07/20 06:03 Dose: Not Given Documented by: Mirtazapine (Remeron -) 7.5 mg PO [facility] Last Admin: 05/06/20 22:27 Dose: 7.5 mg Documented by: Multivitamins/Minerals (Certavite-Antioxidant Liquid) 15 ml PO DAILY [facility] Last Admin: 05/06/20 09:48 Dose: 15 ml Documented by: Pantoprazole Sodium (Protonix Packets For Oral Suspension -) 40 mg PO ACBK [facility] Last Admin: 05/07/20 06:03 Dose: 40 mg Documented by: Polyethylene Glycol (Miralax (For Daily Use) -) 17 gm PO BID PRN PRN Reason: CONSTIPATION Last Admin: 05/04/20 09:35 Dose: 17 gm Documented by: Senna/Docusate Sodium (Pericolace -) 1 tablet PO BID PRN PRN Reason: CONSTIPATION - Objective Vital Signs: Vital Signs Temperature 98.2 F 05/07/20 07:19 Pulse Rate 83 05/07/20 07:19 Respiratory Rate 20 05/07/20 07:19 Blood Pressure 158/72 05/07/20 07:19 O2 Sat by Pulse Oximetry (%) 99 05/06/20 21:00 General: Elderly woman, sick looking not in distress HEENT mucous membranes moist, mild anemia, no jaundice, PERRLA, no nystagmus Neck: No JVD, supple, no bruit, thyroid palpably normal, normal carotid pulsations. Chest: Nontender, clear to auscultation bilaterally CVS: S1-S2 regular/irregular no murmur/gallop/rub Abdomen: Nondistended, soft, bowel sounds present. 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 coli and E. coli bacteremia Problems reviewed: Yes Code(s): A41.9 - SEPSIS, UNSPECIFIED ORGANISM; R65.20 - SEVERE SEPSIS WITHOUT SEPTIC SHOCK (3) Hypertension Assessment/Plan: Well-controlled continue current medication Code(s): I10 - ESSENTIAL (PRIMARY) HYPERTENSION (4) Depression Assessment/Plan: At present stable continue current management Code(s): F32.9 - MAJOR DEPRESSIVE DISORDER, SINGLE EPISODE, UNSPECIFIED (5) Status post spinal surgery Assessment/Plan: Infected continue daptomycin and meropenem Problems reviewed: Yes Code(s): Z98.890 - OTHER SPECIFIED POSTPROCEDURAL STATES (6) Failure to thrive Assessment/Plan: Patient has poor p.o. intake, with low albumin, speech and swallow evaluated recommended PEG placement but patient refused, currently on pured diet continue nutrition consult. Calorie count. Problems reviewed: Yes Code(s): [id number] -
[2020-05-07] MEDS ORDERED: PT OWN MED DRAWER 7, Y5N ONE (09:37)
--- NOTE | 2020-05-07 09:42 | PN ---
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, Physician History of Present Illness: stable no new issues - Current Medication List Current Medications: Active Medications Acetaminophen (Tylenol -) 650 mg PO Q6H PRN PRN Reason: Fever Last Admin: 05/06/20 15:38 Dose: 650 mg Documented by: Amino Acids (Prosource No Carb Liquid Pkt) 30 ml PO TID [facility] Last Admin: 05/07/20 06:03 Dose: 30 ml Documented by: Amlodipine Besylate (Norvasc -) 2.5 mg PO DAILY [facility] Last Admin: 05/06/20 09:49 Dose: 2.5 mg Documented by: Ascorbic Acid (Vitamin C -) 500 mg PO BID [facility] Last Admin: 05/06/20 22:28 Dose: 500 mg Documented by: Citalopram Hydrobromide (Celexa -) 20 mg PO HS [facility] Last Admin: 05/06/20 22:28 Dose: 20 mg Documented by: Meropenem 1 gm/ Dextrose 100 mls @ 200 mls/hr IVPB Q8H-IV [facility] Last Admin: 05/07/20 01:07 Dose: 200 mls/hr Documented by: Daptomycin 500 mg/ Sodium (Chloride) 50 mls @ 50 mls/hr IVPB Q24H [facility]; Protocol Last Admin: 05/06/20 16:31 Dose: 50 mls/hr Documented by: Insulin Aspart (Novolog Vial Sliding Scale -) 1 vial SQ ACHS [facility]; Protocol Last Admin: 05/07/20 06:03 Dose: Not Given Documented by: Mirtazapine (Remeron -) 7.5 mg PO HS [facility] Last Admin: 05/06/20 22:27 Dose: 7.5 mg Documented by: Multivitamins/Minerals (Certavite-Antioxidant Liquid) 15 ml PO DAILY [facility] Last Admin: 05/06/20 09:48 Dose: 15 ml Documented by: Pantoprazole Sodium (Protonix Packets For Oral Suspension -) 40 mg PO ACBK [facility] Last Admin: 05/07/20 06:03 Dose: 40 mg Documented by: Polyethylene Glycol (Miralax (For Daily Use) -) 17 gm PO BID PRN PRN Reason: CONSTIPATION Last Admin: 05/04/20 09:35 Dose: 17 gm Documented by: Senna/Docusate Sodium (Pericolace -) 1 tablet PO BID PRN PRN Reason: CONSTIPATION - Objective Vital Signs: Vital Signs Temperature 98.2 F 05/07/20 07:19 Pulse Rate 83 05/07/20 07:19 Respiratory Rate 20 05/07/20 07:19 Blood Pressure 158/72 05/07/20 07:19 O2 Sat by Pulse Oximetry (%) 99 05/06/20 21:00 Constitutional: Yes: No Distress, Calm Cardiovascular: Yes: S1, S2 Respiratory: Yes: Regular, CTA Bilaterally Gastrointestinal: Yes: Normal Bowel Sounds, Soft Musculoskeletal: Yes: Other Extremities: Yes: WNL Neurological: Yes: Alert Labs: CBC, BMP 05/07/20 06:30 05/07/20 06:30 INR, PTT INR 1.25 (0.83-1.09) H 04/25/20 06:00 Assessment/Plan Problem List - Problems (1) Severe sepsis Code(s): A41.9 - SEPSIS, UNSPECIFIED ORGANISM; R65.20 - SEVERE SEPSIS WITHOUT SEPTIC SHOCK (2) Bacteremia due to Gram-negative bacteria Code(s): R78.81 - BACTEREMIA (3) Status post spinal surgery Code(s): Z98.890 - OTHER SPECIFIED POSTPROCEDURAL STATES (4) Toxic metabolic encephalopathy Code(s): G92 - TOXIC ENCEPHALOPATHY (5) Urinary tract infection Code(s): N39.0 - URINARY TRACT INFECTION, SITE NOT SPECIFIED Qualifiers: Urinary tract infection type: site unspecified Hematuria presence: without hematuria Qualified Code(s): N39.0 - Urinary tract infection, site not specified Assessment/Plan 79 y.o. female with PMH of dementia, HTN, depression, lumbar stenosis s/p laminectomy, neuropathy who underwent removal of L3-L5 hardware, L3-S1 laminectomies, L5-S1 PLIF/L3-S1 PSIF on 04/09/20 and noted to develop fever up to 101.8F and increase in wbc to 16.8K along with lethargy and mild hypotension Severe Sepsis Gram negative/E. coli Bacteremia Pseudomonas UTI s/p lumbar wound I+D, s/p washout/wound vac placement plan ct current mgmt abx wound care rest as per the team
[2020-05-07] MEDS: amLODIPine BESYLATE 2.5 MG TABLET (FP) PO SCH (09:49)
[2020-05-07] MEDS: ASCORBIC ACID 500 MG TABLET (FP) PO SCH ×2 (09:49→21:13)
[2020-05-07] MEDS: MULTIVIT-MINERALS ORAL LIQUID PO SCH (09:50)
--- NOTE | 2020-05-07 10:29 | PN ---
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, ACCOUNT CLASSIFICATION CLERK - Note 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: Selected Entries FAMILY REFUSED PEG TUBE. 05/05/20 05/05/20 05/06/20 14:44 23:56 05:44 Breakfast 75% Diet Tolerated Lunch 75% Supper 0 Temperature 98.4 F Blood Pressure 150/74 05/06/20 05/06/20 05/06/20 08:40 14:00 14:07 Breakfast 50% Diet Tolerated Well Lunch 75% Supper Temperature 98.1 F 98.3 F Blood Pressure 148/77 158/78 05/06/20 05/07/20 21:00 07:19 Breakfast Diet Tolerated Lunch Supper Temperature 98.7 F 98.2 F Blood Pressure 142/70 158/72 Laboratory Tests 05/03/20 05/04/20 05/07/20 07:34 06:45 06:30 WBC 14.8 H 12.7 H 11[address]- s/p Calorie count x 3 days: Day 3 results - ~ 1345 kcal/65 gm Prot. 3 day average ~ same- 1345 kcal and 60 gm Prot, meeting ~ 61 % protein and 73 % Protein needs. Currently receiving TwoCal daily, Magic cup BID and Prosource daily. Recommend increasing Prosource to TID to maximize protein needs and aid healing of surgical wound. Pt is meeting ~ 73 % calorie and ~ 61 % Protein needs- s/p calorie count - Continue pureed diet with nectar thick liquids - continue magic cup BID, and Two jailene daily (mix w/cereal) - add Ensure pudding daily - rec increase Prosource TID Verbal,grossly oriented Needs encouragement to eat but tolerates well
--- NOTE | 2020-05-07 13:58 | PN ---
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 (short form) - Note 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: Patient assess today and 2 days ago. Apyrexial General status improving Eating Orientated recognizes me more conversant today. Neuro At baseline PLAN Continues dry dressings daily Antibiotics PT attempt at getting into the chair d/C rehab planning +
[2020-05-07] MEDS: DAPTOMYCIN 500 MG in SODIUM CHLORIDE 50 ML IVPB SCH (16:27)
[2020-05-07] MEDS ORDERED: INSULIN (NOVOLOG) ASPART 100 UNITS/ML 10ML VIAL ONE (20:47)
[2020-05-07] MEDS: SENNOSIDES/DOCUSATE COMBO (SENNA PLUS) TABLET (UD) PO PRN (21:13)
[2020-05-07] MEDS: CITALOPRAM HYDROBROMIDE 20 MG TABLET PO SCH (21:13)
[2020-05-07] MEDS: MIRTAZAPINE 15 MG TABLET (FP) PO SCH (21:13)
[2020-05-08] MEDS ORDERED: DEXTROSE 5%-WATER 100 ML IVPB ONE ×3 (00:13→17:39)
[2020-05-08] MEDS ORDERED: MEROPENEM 1 GM VIAL (RESTRICTED TO ID) IVPB ONE ×3 (00:13→17:39)
[2020-05-08] MEDS: MEROPENEM 1 GM in DEXTROSE 5%-WATER 100 ML IVPB SCH ×3 (01:02→17:45)
[2020-05-08] MEDS: AMINO ACIDS/PROTEIN HYDROLYS 30 ML LIQUID.PKT PO SCH ×3 (06:16→21:59)
[2020-05-08] MEDS: PANTOPRAZOLE SOD 40 MG SUSPENSION PACKET PO SCH (06:16)
[2020-05-08] MEDS: ACETAMINOPHEN 325 MG TABLET (FP) PO PRN (06:16)
[2020-05-08] MEDS: INSULIN SLIDING SCALE (NOVOLOG) 1 VIAL SQ SCH ×4 (06:16→22:32)
[2020-05-08 07:52] LABS: BASO % 1.6 % (0-2.0); EOS % 5.1 % (0-4.5); HEMATOCRIT 31.5 % (32.4-45.2); LYMPH % 10.4 % (8-40); MCHC 31.6 g/dl (32.0-36.0); MEAN CELL VOLUME 85.4 fl (80-96); MEAN PLT VOLUME 8.6 fl (7.5-11.1); MONO % 4.5 % (3.8-10.2); NEUT % 78.4 % (42.8-82.8); PLATELET COUNT 382 K/MM3 (134-434); RBC 3.69 M/mm3 (3.60-5.2); RDW 15.4 % (11.6-15.6); WHITE BLOOD COUNT 13.6 K/mm3 (4.0-10.0)
[2020-05-08 08:42] LABS: ALBUMIN 2.2 g/dl (3.4-5.0); BILIRUBIN,TOTAL 0.4 mg/dL (0.2-1); BLOOD UREA NITROGEN 29.4 mg/dL (7-18); CALCIUM 9.5 mg/dL (8.5-10.1); CREATININE 0.7 mg/dL (0.55-1.3); MAGNESIUM 2.1 mg/dL (1.8-2.4); POTASSIUM 4.7 mmol/L (3.5-5.1)
[2020-05-08] MEDS ORDERED: PT OWN MED DRAWER 7, Y5N ONE (09:28)
[2020-05-08] MEDS: MULTIVIT-MINERALS ORAL LIQUID PO SCH (09:34)
[2020-05-08] MEDS: ASCORBIC ACID 500 MG TABLET (FP) PO SCH ×2 (09:35→21:59)
[2020-05-08] MEDS: amLODIPine BESYLATE 2.5 MG TABLET (FP) PO SCH (09:35)
--- NOTE | 2020-05-08 11:19 | PN ---
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, Physician History of Present Illness: no new issues - Current Medication List Current Medications: Active Medications Acetaminophen (Tylenol -) 650 mg PO Q6H PRN PRN Reason: Fever Last Admin: 05/08/20 06:16 Dose: 650 mg Documented by: Amino Acids (Prosource No Carb Liquid Pkt) 30 ml PO TID [facility] Last Admin: 05/08/20 06:16 Dose: 30 ml Documented by: Amlodipine Besylate (Norvasc -) 2.5 mg PO DAILY [facility] Last Admin: 05/08/20 09:35 Dose: 2.5 mg Documented by: Ascorbic Acid (Vitamin C -) 500 mg PO BID [facility] Last Admin: 05/08/20 09:35 Dose: 500 mg Documented by: Citalopram Hydrobromide (Celexa -) 20 mg PO HS [facility] Last Admin: 05/07/20 21:13 Dose: 20 mg Documented by: Meropenem 1 gm/ Dextrose 100 mls @ 200 mls/hr IVPB Q8H-IV [facility] Last Admin: 05/08/20 09:31 Dose: 200 mls/hr Documented by: Daptomycin 500 mg/ Sodium (Chloride) 50 mls @ 50 mls/hr IVPB Q24H [facility]; Protocol Last Admin: 05/07/20 16:27 Dose: 50 mls/hr Documented by: Insulin Aspart (Novolog Vial Sliding Scale -) 1 vial SQ ACHS [facility]; Protocol Last Admin: 05/08/20 06:16 Dose: Not Given Documented by: Mirtazapine (Remeron -) 7.5 mg PO HS [facility] Last Admin: 05/07/20 21:13 Dose: 7.5 mg Documented by: Multivitamins/Minerals (Certavite-Antioxidant Liquid) 15 ml PO DAILY [facility] Last Admin: 05/08/20 09:34 Dose: 15 ml Documented by: Pantoprazole Sodium (Protonix Packets For Oral Suspension -) 40 mg PO ACBK [facility] Last Admin: 05/08/20 06:16 Dose: 40 mg Documented by: Polyethylene Glycol (Miralax (For Daily Use) -) 17 gm PO BID PRN PRN Reason: CONSTIPATION Last Admin: 05/04/20 09:35 Dose: 17 gm Documented by: Senna/Docusate Sodium (Pericolace -) 1 tablet PO BID PRN PRN Reason: CONSTIPATION Last Admin: 05/07/20 21:13 Dose: 1 tablet Documented by: - Objective Vital Signs: Vital Signs Temperature 98.6 F 05/08/20 06:00 Pulse Rate 89 05/08/20 06:00 Respiratory Rate 20 05/08/20 06:00 Blood Pressure 151/78 05/08/20 06:00 O2 Sat by Pulse Oximetry (%) 98 05/07/20 21:00 Constitutional: Yes: No Distress, Calm Cardiovascular: Yes: S1, S2 Respiratory: Yes: Regular, CTA Bilaterally Gastrointestinal: Yes: Normal Bowel Sounds, Soft Musculoskeletal: Yes: Other Extremities: Yes: WNL Wound/Incision: Yes: Dressing Dry and Intact Neurological: Yes: Alert Labs: CBC, BMP 05/08/20 06:40 05/08/20 06:40 INR, PTT INR 1.25 (0.83-1.09) H 04/25/20 06:00 Assessment/Plan Problem List - Problems (1) Severe sepsis Code(s): A41.9 - SEPSIS, UNSPECIFIED ORGANISM; R65.20 - SEVERE SEPSIS WITHOUT SEPTIC SHOCK (2) Bacteremia due to Gram-negative bacteria Code(s): R78.81 - BACTEREMIA (3) Status post spinal surgery Code(s): Z98.890 - OTHER SPECIFIED POSTPROCEDURAL STATES (4) Toxic metabolic encephalopathy Code(s): G92 - TOXIC ENCEPHALOPATHY (5) Urinary tract infection Code(s): N39.0 - URINARY TRACT INFECTION, SITE NOT SPECIFIED Qualifiers: Urinary tract infection type: site unspecified Hematuria presence: without hematuria Qualified Code(s): N39.0 - Urinary tract infection, site not specified Assessment/Plan 79 y.o. female with PMH of dementia, HTN, depression, lumbar stenosis s/p laminectomy, neuropathy who underwent removal of L3-L5 hardware, L3-S1 laminectomies, L5-S1 PLIF/L3-S1 PSIF on 04/09/20 and noted to develop fever up to 101.8F and increase in wbc to 16.8K along with lethargy and mild hypotension Severe Sepsis Gram negative/E. coli Bacteremia Pseudomonas UTI s/p lumbar wound I+D, s/p washout/wound vac placement plan ct current mgmt abx wound care rest as per the team
--- NOTE | 2020-05-08 11:37 | PN ---
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, REPORTING PROCESS CONSULTANT - Note 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: Selected Entries FAMILY REFUSED PEG TUBE. 05/05/20 05/05/20 05/06/20 14:44 23:56 05:44 Breakfast 75% Diet Tolerated Lunch 75% Supper 0 Temperature 98.4 F Blood Pressure 150/74 05/06/20 05/06/20 05/06/20 08:40 14:00 14:07 Breakfast 50% Diet Tolerated Well Lunch 75% Supper Temperature 98.1 F 98.3 F Blood Pressure 148/77 158/78 05/06/20 05/07/20 21:00 07:19 Breakfast Diet Tolerated Lunch Supper Temperature 98.7 F 98.2 F Blood Pressure 142/70 158/72 Laboratory Tests 05/03/20 05/04/20 05/07/20 07:34 06:45 06:30 WBC 14.8 H 12.7 H 11.6 H . Selected Entries 05/07/20 05/07/20 05/07/20 07:19 10:00 11:28 Breakfast 25% Diet Tolerated Poor Lunch Supper Temperature 98.2 F 98.4 F Pulse Rate 83 78 Blood Pressure 158/72 156/82 05/07/20 05/07/20 05/07/20 14:00 18:20 19:30 Breakfast Diet Tolerated Well Lunch 75% Supper Temperature 97.9 F 98.7 F 97.8 F Pulse Rate 88 86 101 H Blood Pressure 140/70 144/59 L 136/70 05/07/20 05/08/20 05/08/20 22:06 06:00 09:42 Breakfast 25% Diet Tolerated Fair Lunch Supper 25% Temperature 98.6 F Pulse Rate 89 Blood Pressure 151/78 Laboratory Tests 05/04/20 05/07/20 05/08/20 06:45 06:30 06:40 WBC 12.7 H 11.6 H 13.6 H Seen being fed by EPIC PRELUDE ANALYST without difficulty. - Continue pureed diet with nectar thick liquids - continue magic cup BID, and Two jailene daily (mix w/cereal), Ensure pudding daily- Give nutritional supplements throughout the day to increase needed nutrition for wound healing. Family refused supplemental TF/PEG. Verbal,grossly oriented Needs encouragement to eat but tolerates well
--- NOTE | 2020-05-08 14:33 | PN ---
Physical Exam: SUBJECTIVE: Patient seen and examined. denies pain or discomfort. tells me her appetite is improved. denies pack pain. Spoke to patient with SW about safe d/c planning. Both SW and I recommended to patient that rehab would be beneficial since she has wounds, poor oral intake, will need picc for grain grader antibiotic therapy and she will need PT poor ambulatory status. Patient initially wanted to go home, but now thinking about rehab. SW to reach out to patient's son. OBJECTIVE: Patient is a 79 year old female with history of hypertension, dementia, depression, spinal stenosis, neuropathy she is s/p removal of L3-L5 hardware, including L4-L5 intervertebral cage, L3-S1 laminectomy, L5-S1 PLIF, L3-S1 pos terior instrumented spinal fusion. She is s/p multiple washouts for infected hardware. discharge planning. Period Temp Pulse Resp BP Sys/Lepe Pulse Ox Last 24 Hr 97.8 F-98.7 F 82-101 20-22 136-151/59-78 98-98 GENERAL: awake, alert answers questions. hx of dementia but lucid and tells me she may consider rehab but wants to think about it. HEAD: Normal with no signs of trauma. EYES: PERRL, extraocular movements intact, sclera anicteric, conjunctiva clear. No ptosis. ENT: Ears normal, nares patent, oropharynx clear without exudates NECK: Trachea midline, full range of motion, supple. LUNGS: Breath sounds diminished bilaterally, no wheezes - on 2 liters prn SPINE: surgical dressing not viewed. change per surgery HEART: Regular rate and rhythm ABDOMEN: Soft, nontender, nondistended, normoactive bowel sounds, no guarding EXTREMITIES: no edema. NEUROLOGICAL: Normal speech, gait not observed. PSYCH: Normal mood, normal affect Laboratory Results - last 24 hr 05/07/20 05/07/20 05/08/20 17:14 21:11 06:14 WBC RBC Hgb Hct MCV MCH MCHC RDW Plt Count MPV Absolute Neuts (auto) Neutrophils % Lymphocytes % Monocytes % Eosinophils % Basophils % Nucleated RBC % Sodium Potassium Chloride Carbon Dioxide Anion Gap BUN Creatinine Est GFR (CKD-EPI)AfAm Est GFR (CKD-EPI)NonAf POC Glucometer 103 106 97 Random Glucose Calcium Magnesium Total Bilirubin AST ALT Alkaline Phosphatase Total Protein Albumin 05/08/20 05/08/20 05/08/20 06:40 06:40 11:34 WBC 13.6 H RBC 3.69 Hgb 10.0 L Hct 31.5 L MCV 85.4 MCH 27.0 MCHC 31.6 L RDW 15.4 Plt Count 382 MPV 8.6 Absolute Neuts (auto) 10.7 H Neutrophils % 78.4 Lymphocytes % 10.4 D Monocytes % 4.5 Eosinophils % 5.1 H Basophils % 1.6 Nucleated RBC % 0 Sodium 143 Potassium 4.7 Chloride 110 H Carbon Dioxide 24 Anion Gap 10 BUN 29.4 H Creatinine 0.7 Est GFR (CKD-EPI)AfAm 96.86 Est GFR (CKD-EPI)NonAf 83.57 POC Glucometer 98 Random Glucose 86 Calcium 9.5 Magnesium 2.1 Total Bilirubin 0.4 AST 41 H ALT 31 Alkaline Phosphatase 116 Total Protein 7.0 Albumin 2.2 L Active Medications Generic Name Dose Route Start Last Admin Trade Name Freq PRN Reason Stop Dose Admin Acetaminophen 650 mg 05/04/20 07:30 05/08/20 06:16 Tylenol - PO 650 mg Q6H PRN Administration Fever Amino Acids 30 ml 05/06/20 14:00 05/08/20 14:19 Prosource No Carb Liquid Pkt PO 30 ml TID JAYE Administration Amlodipine Besylate 2.5 mg 05/04/20 10:00 05/08/20 09:35 Norvasc - PO 2.5 mg DAILY JAYE Administration Ascorbic Acid 500 mg 05/04/20 10:00 05/08/20 09:35 Vitamin C - PO 500 mg BID JAYE Administration Citalopram Hydrobromide 20 mg 05/04/20 22:00 05/07/20 21:13 Celexa - PO 20 mg HS JAYE Administration Meropenem 1 gm/ Dextrose 100 mls @ 200 mls/hr 05/02/20 12:15 05/08/20 09:31 IVPB 200 mls/hr Q8H-IV JAYE Administration Daptomycin 500 mg/ Sodium 50 mls @ 50 mls/hr 05/04/20 16:00 05/07/20 16:27 Chloride IVPB 50 mls/hr Q24H JAYE Administration Protocol Insulin Aspart 1 vial 05/04/20 11:00 05/08/20 12:02 Novolog Vial Sliding Scale - SQ Not Given ACHS JAYE Protocol Mirtazapine 7.5 mg 05/04/20 22:00 05/07/20 21:13 Remeron - PO 7.5 mg HS JAYE Administration Multivitamins/Minerals 15 ml 05/04/20 10:00 05/08/20 09:34 Certavite-Antioxidant Liquid PO 15 ml DAILY JAYE Administration Pantoprazole Sodium 40 mg 05/05/20 07:00 05/08/20 06:16 Protonix Packets For Oral Suspension - PO 40 mg ACBK JAYE Administration Polyethylene Glycol 17 gm 05/04/20 07:30 05/04/20 09:35 Miralax (For Daily Use) - PO 17 gm BID PRN Administration CONSTIPATION Senna/Docusate Sodium 1 tablet 05/04/20 07:30 05/07/20 21:13 Pericolace - PO 1 tablet BID PRN Administration CONSTIPATION ASSESSMENT/PLAN: Problem List - Problems (1) Poor appetite Assessment/Plan: improving. patient followed by RD per RD note: - pt is meeting ~ 73 % calorie and ~ 61 % Protein needs- s/p calorie count - Continue pureed diet with nectar thick liquids - continue magic cup BID, and Two jailene daily (mix w/cereal) - add Ensure pudding daily - rec increase Prosource TID Code(s): R63.0 - ANOREXIA (2) Severe sepsis Assessment/Plan: spinal stenosis. s/p removal of L3-L5 hardware, including L4-L5 intervertebral cage, L3-S1 laminectomy, L5-S1 PLIF, L3-S1 posterior instrumented spinal fusion. s/p multiple washouts. on daptomycin and meropenem per ID per ID, patient will need apx 6 weeks of antibiotics via picc line surgery follow up pain control monitor vitals, labs, mental status Code(s): A41.9 - SEPSIS, UNSPECIFIED ORGANISM; R65.20 - SEVERE SEPSIS WITHOUT SEPTIC SHOCK (3) Toxic metabolic encephalopathy Assessment/Plan: mental status has improved and patient able to answer questions appropriately Code(s): G92 - TOXIC ENCEPHALOPATHY (4) Status post spinal surgery Assessment/Plan: Wound culture from 04/23/2020 grew pseudomonas resistant to zosyn and VRE sentivie to daptomycin. Continue daptomycin and meropenem. ID following monitor WBC, fevers, vitals leukocytosis improving Code(s): Z98.890 - OTHER SPECIFIED POSTPROCEDURAL STATES (5) At risk for dehydration due to poor fluid intake Assessment/Plan: as per RD recommendation note: (imported from RD note) - pt is meeting ~ 73 % calorie and ~ 61 % Protein needs- s/p calorie count - Continue pureed diet with nectar thick liquids - continue magic cup BID, and Two jailene daily (mix w/cereal) - add Ensure pudding daily - rec increase Prosource TID Code(s): Z91.89 - OTH PERSONAL RISK FACTORS, NOT ELSEWHERE CLASSIFIED (6) Prophylactic measure Assessment/Plan: fen monitor electrolytes dietary following full code Code(s): Z29.9 - ENCOUNTER FOR PROPHYLACTIC MEASURES, UNSPECIFIED (7) DVT prophylaxis Assessment/Plan: SCDs Code(s): Z29.9 - ENCOUNTER FOR PROPHYLACTIC MEASURES, UNSPECIFIED Visit type - Emergency Visit Emergency Visit: Yes ED Registration Date: 04/09/20 Care time: The patient presented to the Emergency Department on the above date and was hospitalized for further evaluation of their emergent condition. - New Patient This patient is new to me today: No - Critical Care Critical Care patient: No - Discharge Referral Referred to [facility] Med P.C.: No - Medication Review Med list reviewed for High Risk Meds patients 65 and older: No
[2020-05-08] MEDS: DAPTOMYCIN 500 MG in SODIUM CHLORIDE 50 ML IVPB SCH (16:56)
[2020-05-08] MEDS: CITALOPRAM HYDROBROMIDE 20 MG TABLET PO SCH (21:59)
[2020-05-08] MEDS: MIRTAZAPINE 15 MG TABLET (FP) PO SCH (21:59)
[2020-05-09] MEDS ORDERED: MEROPENEM 1 GM VIAL (RESTRICTED TO ID) IVPB ONE ×3 (00:53→18:14)
[2020-05-09] MEDS ORDERED: DEXTROSE 5%-WATER 100 ML IVPB ONE ×3 (00:54→18:14)
[2020-05-09] MEDS: MEROPENEM 1 GM in DEXTROSE 5%-WATER 100 ML IVPB SCH ×3 (01:40→18:17)
[2020-05-09] MEDS: PANTOPRAZOLE SOD 40 MG SUSPENSION PACKET PO SCH (06:19)
[2020-05-09] MEDS: INSULIN SLIDING SCALE (NOVOLOG) 1 VIAL SQ SCH ×2 (06:19→10:49)
[2020-05-09] MEDS: AMINO ACIDS/PROTEIN HYDROLYS 30 ML LIQUID.PKT PO SCH ×3 (06:19→22:52)
[2020-05-09 08:03] LABS: BASO % 0.5 % (0-2.0); EOS % 4.1 % (0-4.5); HEMATOCRIT 33.1 % (32.4-45.2); HEMOGLOBIN 10.5 GM/dL (10.7-15.3); LYMPH % 9.2 % (8-40); MCH 26.8 pg (25.7-33.7); MCHC 31.5 g/dl (32.0-36.0); MEAN CELL VOLUME 85.1 fl (80-96); MEAN PLT VOLUME 8.8 fl (7.5-11.1); MONO % 4.7 % (3.8-10.2); NEUT % 81.5 % (42.8-82.8); PLATELET COUNT 410 K/MM3 (134-434); RDW 15.8 % (11.6-15.6); WHITE BLOOD COUNT 15.5 K/mm3 (4.0-10.0)
[2020-05-09 08:38] LABS: POTASSIUM 4.6 mmol/L (3.5-5.1)
[2020-05-09 08:48] LABS: ALBUMIN 2.4 g/dl (3.4-5.0); BILIRUBIN,TOTAL 0.4 mg/dL (0.2-1); BLOOD UREA NITROGEN 27.8 mg/dL (7-18); CALCIUM 9.8 mg/dL (8.5-10.1); CREATININE 0.7 mg/dL (0.55-1.3); MAGNESIUM 2.1 mg/dL (1.8-2.4); TOT PROT 7.5 g/dl (6.4-8.2)
--- NOTE | 2020-05-09 09:21 | PN ---
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, Physician History of Present Illness: no new issues - Current Medication List Current Medications: Active Medications Acetaminophen (Tylenol -) 650 mg PO Q6H PRN PRN Reason: Fever Last Admin: 05/08/20 06:16 Dose: 650 mg Documented by: Amino Acids (Prosource No Carb Liquid Pkt) 30 ml PO TID [facility] Last Admin: 05/09/20 06:19 Dose: 30 ml Documented by: Amlodipine Besylate (Norvasc -) 2.5 mg PO DAILY [facility] Last Admin: 05/08/20 09:35 Dose: 2.5 mg Documented by: Ascorbic Acid (Vitamin C -) 500 mg PO BID [facility] Last Admin: 05/08/20 21:59 Dose: 500 mg Documented by: Citalopram Hydrobromide (Celexa -) 20 mg PO HS [facility] Last Admin: 05/08/20 21:59 Dose: 20 mg Documented by: Meropenem 1 gm/ Dextrose 100 mls @ 200 mls/hr IVPB Q8H-IV [facility] Last Admin: 05/09/20 01:40 Dose: 200 mls/hr Documented by: Daptomycin 500 mg/ Sodium (Chloride) 50 mls @ 50 mls/hr IVPB Q24H [facility]; Protocol Last Admin: 05/08/20 16:56 Dose: 50 mls/hr Documented by: Insulin Aspart (Novolog Vial Sliding Scale -) 1 vial SQ ACHS [facility]; Protocol Last Admin: 05/09/20 06:19 Dose: Not Given Documented by: Mirtazapine (Remeron -) 7.5 mg PO [facility] Last Admin: 05/08/20 21:59 Dose: 7.5 mg Documented by: Multivitamins/Minerals (Certavite-Antioxidant Liquid) 15 ml PO DAILY [facility] Last Admin: 05/08/20 09:34 Dose: 15 ml Documented by: Pantoprazole Sodium (Protonix Packets For Oral Suspension -) 40 mg PO ACBK [facility] Last Admin: 05/09/20 06:19 Dose: 40 mg Documented by: Polyethylene Glycol (Miralax (For Daily Use) -) 17 gm PO BID PRN PRN Reason: CONSTIPATION Last Admin: 05/04/20 09:35 Dose: 17 gm Documented by: Senna/Docusate Sodium (Pericolace -) 1 tablet PO BID PRN PRN Reason: CONSTIPATION Last Admin: 05/07/20 21:13 Dose: 1 tablet Documented by: - Objective Vital Signs: Vital Signs Temperature 98.1 F 05/09/20 06:00 Pulse Rate 88 05/09/20 06:00 Respiratory Rate 20 05/09/20 06:00 Blood Pressure 142/62 05/09/20 06:00 O2 Sat by Pulse Oximetry (%) 98 05/08/20 21:00 Constitutional: Yes: No Distress, Calm Cardiovascular: Yes: S1, S2 Respiratory: Yes: Regular, CTA Bilaterally Gastrointestinal: Yes: Normal Bowel Sounds, Soft Musculoskeletal: Yes: WNL Extremities: Yes: WNL Neurological: Yes: Alert Labs: CBC, BMP 05/09/20 06:26 05/09/20 06:26 INR, PTT INR 1.25 (0.83-1.09) H 04/25/20 06:00 Assessment/Plan Problem List - Problems (1) Severe sepsis Code(s): A41.9 - SEPSIS, UNSPECIFIED ORGANISM; R65.20 - SEVERE SEPSIS WITHOUT SEPTIC SHOCK (2) Bacteremia due to Gram-negative bacteria Code(s): R78.81 - BACTEREMIA (3) Status post spinal surgery Code(s): Z98.890 - OTHER SPECIFIED POSTPROCEDURAL STATES (4) Toxic metabolic encephalopathy Code(s): G92 - TOXIC ENCEPHALOPATHY (5) Urinary tract infection Code(s): N39.0 - URINARY TRACT INFECTION, SITE NOT SPECIFIED Qualifiers: Urinary tract infection type: site unspecified Hematuria presence: without hematuria Qualified Code(s): N39.0 - Urinary tract infection, site not specified Assessment/Plan 79 y.o. female with PMH of dementia, HTN, depression, lumbar stenosis s/p laminectomy, neuropathy who underwent removal of L3-L5 hardware, L3-S1 laminectomies, L5-S1 PLIF/L3-S1 PSIF on 04/09/20 and noted to develop fever up to 101.8F and increase in wbc to 16.8K along with lethargy and mild hypotension Severe Sepsis Gram negative/E. coli Bacteremia Pseudomonas UTI s/p lumbar wound I+D, s/p washout/wound vac placement plan ct current mgmt abx wound care rest as per the team
--- NOTE | 2020-05-09 10:10 | PN ---
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, AIR SAMPLING AND MONITORING - Note 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: Selected Entries FAMILY REFUSED PEG TUBE. 05/05/20 05/05/20 05/06/20 14:44 23:56 05:44 Breakfast 75% Diet Tolerated Lunch 75% Supper 0 Temperature 98.4 F Blood Pressure 150/74 05/06/20 05/06/20 05/06/20 08:40 14:00 14:07 Breakfast 50% Diet Tolerated Well Lunch 75% Supper Temperature 98.1 F 98.3 F Blood Pressure 148/77 158/78 05/06/20 05/07/20 21:00 07:19 Breakfast Diet Tolerated Lunch Supper Temperature 98.7 F 98.2 F Blood Pressure 142/70 158/72 Laboratory Tests 05/03/20 05/04/20 05/07/20 07:34 06:45 06:30 WBC 14.8 H 12.7 H 11.6 H . Selected Entries 05/07/20 05/07/20 05/07/20 07:19 10:00 11:28 Breakfast 25% Diet Tolerated Poor Lunch Supper Temperature 98.2 F 98.4 F Pulse Rate 83 78 Blood Pressure 158/72 156/82 05/07/20 05/07/20 05/07/20 14:00 18:20 19:30 Breakfast Diet Tolerated Well Lunch 75% Supper Temperature 97.9 F 98.7 F 97.8 F Pulse Rate 88 86 101 H Blood Pressure 140/70 144/59 L 136/70 05/07/20 05/08/20 05/08/20 22:06 06:00 09:42 Breakfast 25% Diet Tolerated Fair Lunch Supper 25% Temperature 98.6 F Pulse Rate 89 Blood Pressure 151/78 Laboratory Tests 05/04/20 05/07/20 05/08/20 06:45 06:30 06:40 WBC 12.7 H 11.6 H 13.6 H Selected Entries 05/08/20 05/08/20 05/08/20 06:00 09:42 10:00 Breakfast 25% Diet Tolerated Lunch Supper Temperature 98.6 F 98.2 F Pulse Rate 89 82 Blood Pressure 151/78 146/73 05/08/20 05/08/20 05/08/20 14:47 17:40 20:17 Breakfast Diet Tolerated Lunch 100% Supper Temperature 98.1 F 98.3 F 98.1 F Pulse Rate 89 83 98 H Blood Pressure 149/65 137/70 159/75 05/08/20 05/09/20 23:04 06:00 Breakfast Diet Tolerated Well Lunch Supper 50% Temperature 98.1 F Pulse Rate 88 Blood Pressure 142/62 Laboratory Tests 05/07/20 05/08/20 05/09/20 06:30 06:40 06:26 WBC 11.6 H 13.6 H 15.5 H - Continue pureed diet with nectar thick liquids - continue magic cup BID, and Two jailene daily (mix w/cereal), Ensure pudding daily- Give nutritional supplements throughout the day to increase needed nutrition for wound healing. Family refused supplemental TF/PEG. Verbal,grossly oriented Needs encouragement to eat but tolerates well
[2020-05-09] MEDS: ASCORBIC ACID 500 MG TABLET (FP) PO SCH ×2 (10:49→22:52)
[2020-05-09] MEDS: amLODIPine BESYLATE 2.5 MG TABLET (FP) PO SCH (10:49)
[2020-05-09] MEDS: MULTIVIT-MINERALS ORAL LIQUID PO SCH (10:50)
[2020-05-09] MEDS: ACETAMINOPHEN 325 MG TABLET (FP) PO PRN (12:29)
--- NOTE | 2020-05-09 12:53 | PN ---
Physical Exam: SUBJECTIVE: Patient seen and examined at the bedside. She tells me that she does not want to go to rehab, wants to go home on discharge. Spoke to her about all her current needs: wound care, physical therapy, antibiotics, nutrition and now new wound of right heel and asked her to re consider going to rehab so that she can get physically stronger. She is refusing. I called her son, [place] but son not available at this time. I did not leave a voice mail. SW also attempting to call him to discuss discharge planning. OBJECTIVE: unsteageable new wound on right heel. consult vascular. ------- Patient is a 79 year old female with history of hypertension, dementia, depression, spinal stenosis, neuropathy she is s/p removal of L3-L5 hardware, including L4-L5 intervertebral cage, L3-S1 laminectomy, L5-S1 PLIF, L3-S1 posterior instrumented spinal fusion. She is s/p multiple washouts for infected hardware. Period Temp Pulse Resp BP Sys/Lepe Pulse Ox Last 24 Hr 97.6 F-98.3 F 83-98 14-20 130-159/62-76 97-99 GENERAL: awake, alert answers questions. hx of dementia but lucid and tells me she may consider rehab but now saying she will not attend rehab. HEAD: Normal with no signs of trauma. EYES: PERRL, extraocular movements intact, sclera anicteric, conjunctiva clear. No ptosis. ENT: Ears normal, nares patent, oropharynx clear without exudates NECK: Trachea midline, full range of motion, supple. LUNGS: Breath sounds diminished bilaterally, no wheezes - on 2 liters prn SPINE: surgical dressing not viewed. change per surgery HEART: Regular rate and rhythm ABDOMEN: Soft, nontender, nondistended, normoactive bowel sounds, no guarding EXTREMITIES: no edema. unstageable wound of right heel. elevate heels on pillows, add santyl. NEUROLOGICAL: Normal speech, gait not observed. PSYCH: Normal mood, normal affect Laboratory Results - last 24 hr 05/08/20 05/08/20 05/09/20 17:16 22:01 06:18 WBC RBC Hgb Hct MCV MCH MCHC RDW Plt Count MPV Absolute Neuts (auto) Neutrophils % Lymphocytes % Monocytes % Eosinophils % Basophils % Nucleated RBC % Sodium Potassium Chloride Carbon Dioxide Anion Gap BUN Creatinine Est GFR (CKD-EPI)AfAm Est GFR (CKD-EPI)NonAf POC Glucometer 108 131 95 Random Glucose Calcium Magnesium Total Bilirubin AST ALT Alkaline Phosphatase Total Protein Albumin 05/09/20 05/09/20 05/09/20 06:26 06:26 10:34 WBC 15.5 H RBC 3.90 Hgb 10.5 L Hct 33.1 MCV 85.1 MCH 26.8 MCHC 31.5 L RDW 15.8 H Plt Count 410 MPV 8.8 Absolute Neuts (auto) 12.6 H Neutrophils % 81.5 Lymphocytes % 9.2 Monocytes % 4.7 Eosinophils % 4.1 Basophils % 0.5 Nucleated RBC % 0 Sodium 145 Potassium 4.6 Chloride 111 H Carbon Dioxide 27 Anion Gap 7 L BUN 27.8 H Creatinine 0.7 Est GFR (CKD-EPI)AfAm 96.86 Est GFR (CKD-EPI)NonAf 83.57 POC Glucometer 143 Random Glucose 90 Calcium 9.8 Magnesium 2.1 Total Bilirubin 0.4 AST 33 ALT 33 Alkaline Phosphatase 122 H Total Protein 7.5 Albumin 2.4 L Active Medications Generic Name Dose Route Start Last Admin Trade Name Freq PRN Reason Stop Dose Admin Acetaminophen 650 mg 05/04/20 07:30 05/09/20 12:29 Tylenol - PO 650 mg Q6H PRN Administration Fever Amino Acids 30 ml 05/06/20 14:00 05/09/20 06:19 Prosource No Carb Liquid Pkt PO 30 ml TID JAYE Administration Amlodipine Besylate 2.5 mg 05/04/20 10:00 05/09/20 10:49 Norvasc - PO 2.5 mg DAILY JAYE Administration Ascorbic Acid 500 mg 05/04/20 10:00 05/09/20 10:49 Vitamin C - PO 500 mg BID JAYE Administration Citalopram Hydrobromide 20 mg 05/04/20 22:00 05/08/20 21:59 Celexa - PO 20 mg HS JAYE Administration Meropenem 1 gm/ Dextrose 100 mls @ 200 mls/hr 05/02/20 12:15 05/09/20 10:48 IVPB 200 mls/hr Q8H-IV JAYE Administration Daptomycin 500 mg/ Sodium 50 mls @ 50 mls/hr 05/04/20 16:00 05/08/20 16:56 Chloride IVPB 50 mls/hr Q24H JAYE Administration Protocol Insulin Aspart 1 vial 05/04/20 11:00 05/09/20 10:49 Novolog Vial Sliding Scale - SQ Not Given ACHS JAYE Protocol Mirtazapine 7.5 mg 05/04/20 22:00 05/08/20 21:59 Remeron - PO 7.5 mg HS JAYE Administration Multivitamins/Minerals 15 ml 05/04/20 10:00 05/09/20 10:50 Certavite-Antioxidant Liquid PO 15 ml DAILY JAYE Administration Pantoprazole Sodium 40 mg 05/05/20 07:00 05/09/20 06:19 Protonix Packets For Oral Suspension - PO 40 mg ACBK JAYE Administration Polyethylene Glycol 17 gm 05/04/20 07:30 05/04/20 09:35 Miralax (For Daily Use) - PO 17 gm BID PRN Administration CONSTIPATION Senna/Docusate Sodium 1 tablet 05/04/20 07:30 05/07/20 21:13 Pericolace - PO 1 tablet BID PRN Administration CONSTIPATION ASSESSMENT/PLAN: Problem List - Problems (1) Severe sepsis Assessment/Plan: spinal stenosis. s/p removal of L3-L5 hardware, including L4-L5 intervertebral cage, L3-S1 laminectomy, L5-S1 PLIF, L3-S1 posterior instrumented spinal fusion. s/p multiple washouts. on daptomycin and meropenem per ID per ID, patient will need apx 6 weeks of antibiotics via picc line surgery follow up pain control monitor vitals, labs, mental status Code(s): A41.9 - SEPSIS, UNSPECIFIED ORGANISM; R65.20 - SEVERE SEPSIS WITHOUT SEPTIC SHOCK (2) Unstageable pressure ulcer of right heel Assessment/Plan: unstageable right heel pressure ulcer, purple in color, round. patient denies pain. plan: - elevate heels at all times. - add santyl daily - vascular consulted - monitor wound daily Code(s): L89.610 - PRESSURE ULCER OF RIGHT HEEL, UNSTAGEABLE (3) Poor appetite Assessment/Plan: improving. patient followed by RD per RD note: - pt is meeting ~ 73 % calorie and ~ 61 % Protein needs- s/p calorie count - Continue pureed diet with nectar thick liquids - continue magic cup BID, and Two jailene daily (mix w/cereal) - add Ensure pudding daily - rec increase Prosource TID Code(s): R63.0 - ANOREXIA (4) Toxic metabolic encephalopathy Assessment/Plan: mental status has improved and patient able to answer questions appropriately Code(s): G92 - TOXIC ENCEPHALOPATHY (5) Status post spinal surgery Assessment/Plan: Wound culture from 04/23/2020 grew pseudomonas resistant to zosyn and VRE sentivie to daptomycin. Continue daptomycin and meropenem. ID following monitor WBC, fevers, vitals leukocytosis improving Code(s): Z98.890 - OTHER SPECIFIED POSTPROCEDURAL STATES (6) At risk for dehydration due to poor fluid intake Assessment/Plan: as per RD recommendation note: (imported from RD note) - pt is meeting ~ 73 % calorie and ~ 61 % Protein needs- s/p calorie count - Continue pureed diet with nectar thick liquids - continue magic cup BID, and Two jailene daily (mix w/cereal) - add Ensure pudding daily - rec increase Prosource TID Code(s): Z91.89 - OTH PERSONAL RISK FACTORS, NOT ELSEWHERE CLASSIFIED (7) Prophylactic measure Assessment/Plan: fen monitor electrolytes dietary following full code Code(s): Z29.9 - ENCOUNTER FOR PROPHYLACTIC MEASURES, UNSPECIFIED (8) DVT prophylaxis Assessment/Plan: SCDs Code(s): Z29.9 - ENCOUNTER FOR PROPHYLACTIC MEASURES, UNSPECIFIED Visit type - Emergency Visit Emergency Visit: Yes ED Registration Date: 04/09/20 Care time: The patient presented to the Emergency Department on the above date and was hospitalized for further evaluation of their emergent condition. - New Patient This patient is new to me today: No - Critical Care Critical Care patient: No - Medication Review Med list reviewed for High Risk Meds patients 65 and older: Yes
[2020-05-09] MEDS ORDERED: COLLAGENASE CLOSTRIDIUM HIST. 30 GRAMS TUBE TP SCH (13:15)
--- NOTE | 2020-05-09 15:45 | CONSULT ---
- Consultation REQUESTING PROVIDER: CONSULT REQUEST: We have been asked to surgically evaluate this patient for Right heel ulcer. PCP:Dominic Wong NP HISTORY OF PRESENT ILLNESS: 79 yo female who we were asked to see for Right heel wound. She was admitted on 04/09 for failure with removal of back hardware and multiple I&D/vac dressing changes. She is unable to give a history secondary to her dementia but does follow commands. The patient has been nonmobile, being seen with PT and will sit on side of the bed with assistance. 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 unable to move LUE LOWER EXTREMITIES: RLE+2 DP pulse(palpable) PT with doppler. Right heel with 4x4 cm unstagable DTI/ no erythema or boggines to the area. LLE +2DP/PT with doppler no skin breakdown. Sacrum: 3x3 cm ulcer with fibrinous material in the center. No surrounding erythema or bogginess. NEUROLOGICAL: Normal speech, gait not observed. PSYCH: Cooperative. Vital Signs Temperature 99.5 F 05/09/20 15:41 Pulse Rate 85 05/09/20 15:41 Respiratory Rate 16 05/09/20 15:41 Blood Pressure 142/70 05/09/20 15:41 O2 Sat by Pulse Oximetry (%) 94 L 05/09/20 15:41 Lab Results WBC 15.5 K/mm3 (4.0-10.0) H 05/09/20 06:26 RBC 3.90 M/mm3 (3.60-5.2) 05/09/20 06:26 Hgb 10.5 GM/dL (10.7-15.3) L 05/09/20 06:26 Hct 33.1 % (32.4-45.2) 05/09/20 06:26 MCV 85.1 fl (80-96) 05/09/20 06:26 MCHC 31.5 g/dl (32.0-36.0) L 05/09/20 06:26 RDW 15.8 % (11.6-15.6) H 05/09/20 06:26 Plt Count 410 K/MM3 (134-434) 05/09/20 06:26 INR 1.25 (0.83-1.09) H 04/25/20 06:00 Sodium 145 mmol/L (136-145) 05/09/20 06:26 Potassium 4.6 mmol/L (3.5-5.1) 05/09/20 06:26 Chloride 111 mmol/L (98-107) H 05/09/20 06:26 Carbon Dioxide 27 mmol/L (21-32) 05/09/20 06:26 Anion Gap 7 MMOL/L (8-16) L 05/09/20 06:26 BUN 27.8 mg/dL (7-18) H 05/09/20 06:26 Creatinine 0.7 mg/dL (0.55-1.3) 05/09/20 06:26 Random Glucose 90 mg/dL (74-106) 05/09/20 06:26 Calcium 9.8 mg/dL (8.5-10.1) 05/09/20 06:26 Blood Type O POSITIVE 04/24/20 14:45 Antibody Screen Negative 04/24/20 14:45 Problem List - Problems (1) Unstageable pressure ulcer of right heel Assessment/Plan: pt with right heel ulcer/unstagable. Recommended to continue elevation of b/l legs on pillows/alleyvn. No need for santyl to this area/ no necrotic tissue or eschar edge. Also, pt noted to have sacral ulcer. Sacral Ulcer/DTI Plan -Reposition every two hours while in bed -Air mattress recommended -Use drawsheets and Trendelenburg when repositioning to reduce friction and shear -Manage incontinence via timely cleansing, use of appropriate incontinence disposables and use of barrier ointment to intact skin -Ensure adequate hydration/nutrition, supplementation per primary team -Ensure off-loading to all bony areas (heels, ankles, hips and tailbone) with Allevyn/Optifoam -Clean open wounds with normal saline and apply (insert ointment/dressing) D/w Dr. Hernandez Problems reviewed: Yes Code(s): L89.610 - PRESSURE ULCER OF RIGHT HEEL, UNSTAGEABLE Visit type - Case Type Case Type: Scheduled - Emergency Emergency Visit: No - New patient This patient is new to me today: Yes Date on this admission: 05/09/20
[2020-05-09] MEDS ORDERED: PT OWN MED DRAWER 7, Y5N ONE (16:02)
[2020-05-09] MEDS: DAPTOMYCIN 500 MG in SODIUM CHLORIDE 50 ML IVPB SCH (18:10)
[2020-05-09] MEDS: COLLAGENASE CLOSTRIDIUM HIST. 30 GRAMS TUBE TP SCH (18:12)
[2020-05-09] MEDS: CITALOPRAM HYDROBROMIDE 20 MG TABLET PO SCH (22:52)
[2020-05-09] MEDS: MIRTAZAPINE 15 MG TABLET (FP) PO SCH (22:52)
[2020-05-10] MEDS: MEROPENEM 1 GM in DEXTROSE 5%-WATER 100 ML IVPB SCH ×3 (02:10→17:14)
[2020-05-10] MEDS ORDERED: MEROPENEM 1 GM VIAL (RESTRICTED TO ID) IVPB ONE ×3 (02:11→17:10)
[2020-05-10] MEDS ORDERED: DEXTROSE 5%-WATER 100 ML IVPB ONE ×3 (02:12→17:10)
[2020-05-10] MEDS: PANTOPRAZOLE SOD 40 MG SUSPENSION PACKET PO SCH (06:44)
[2020-05-10] MEDS: AMINO ACIDS/PROTEIN HYDROLYS 30 ML LIQUID.PKT PO SCH ×3 (06:44→22:22)
[2020-05-10 08:24] LABS: BASO % 1.4 % (0-2.0); EOS % 6.3 % (0-4.5); HEMATOCRIT 31.8 % (32.4-45.2); HEMOGLOBIN 10.1 GM/dL (10.7-15.3); LYMPH % 8.7 % (8-40); MCH 26.8 pg (25.7-33.7); MCHC 31.9 g/dl (32.0-36.0); MEAN PLT VOLUME 8.5 fl (7.5-11.1); NEUT % 77.6 % (42.8-82.8); PLATELET COUNT 405 K/MM3 (134-434); RBC 3.78 M/mm3 (3.60-5.2); RDW 15.5 % (11.6-15.6); WHITE BLOOD COUNT 14.2 K/mm3 (4.0-10.0)
[2020-05-10 08:49] LABS: POTASSIUM 4.4 mmol/L (3.5-5.1)
[2020-05-10 09:01] LABS: ALBUMIN 2.2 g/dl (3.4-5.0); BILIRUBIN,TOTAL 0.6 mg/dL (0.2-1); CALCIUM 9.8 mg/dL (8.5-10.1); CREATININE 0.6 mg/dL (0.55-1.3); MAGNESIUM 1.9 mg/dL (1.8-2.4); TOT PROT 7.2 g/dl (6.4-8.2)
--- NOTE | 2020-05-10 09:35 | PN ---
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, Physician History of Present Illness: no new issues - Current Medication List Current Medications: Active Medications Acetaminophen (Tylenol -) 650 mg PO Q6H PRN PRN Reason: Fever Last Admin: 05/09/20 12:29 Dose: 650 mg Documented by: Amino Acids (Prosource No Carb Liquid Pkt) 30 ml PO TID [facility] Last Admin: 05/10/20 06:44 Dose: 30 ml Documented by: Amlodipine Besylate (Norvasc -) 2.5 mg PO DAILY [facility] Last Admin: 05/09/20 10:49 Dose: 2.5 mg Documented by: Ascorbic Acid (Vitamin C -) 500 mg PO BID [facility] Last Admin: 05/09/20 22:52 Dose: 500 mg Documented by: Citalopram Hydrobromide (Celexa -) 20 mg PO HS [facility] Last Admin: 05/09/20 22:52 Dose: 20 mg Documented by: Collagenase (Santyl -) 1 applic TP DAILY [facility]; Protocol Last Admin: 05/09/20 18:12 Dose: 1 applic Documented by: Meropenem 1 gm/ Dextrose 100 mls @ 200 mls/hr IVPB Q8H-IV JAYE Last Admin: 05/10/20 02:10 Dose: 200 mls/hr Documented by: Daptomycin 500 mg/ Sodium (Chloride) 50 mls @ 50 mls/hr IVPB Q24H [facility]; Protocol Last Admin: 05/09/20 18:10 Dose: 50 mls/hr Documented by: Mirtazapine (Remeron -) 7.5 mg PO HS [facility] Last Admin: 05/09/20 22:52 Dose: 7.5 mg Documented by: Multivitamins/Minerals (Certavite-Antioxidant Liquid) 15 ml PO DAILY [facility] Last Admin: 05/09/20 10:50 Dose: 15 ml Documented by: Pantoprazole Sodium (Protonix Packets For Oral Suspension -) 40 mg PO ACBK [facility] Last Admin: 05/10/20 06:44 Dose: 40 mg Documented by: Polyethylene Glycol (Miralax (For Daily Use) -) 17 gm PO BID PRN PRN Reason: CONSTIPATION Last Admin: 05/04/20 09:35 Dose: 17 gm Documented by: Senna/Docusate Sodium (Pericolace -) 1 tablet PO BID PRN PRN Reason: CONSTIPATION Last Admin: 05/07/20 21:13 Dose: 1 tablet Documented by: - Objective Vital Signs: Vital Signs Temperature 98 F 05/10/20 06:00 Pulse Rate 93 H 05/10/20 06:00 Respiratory Rate 20 05/10/20 06:00 Blood Pressure 152/69 05/10/20 06:00 O2 Sat by Pulse Oximetry (%) 94 L 05/09/20 21:00 Constitutional: Yes: No Distress, Calm Cardiovascular: Yes: S1, S2 Respiratory: Yes: Regular, CTA Bilaterally Gastrointestinal: Yes: Normal Bowel Sounds, Soft Musculoskeletal: Yes: WNL Extremities: Yes: Other (rt heel ulcer) Wound/Incision: Yes: Dressing Dry and Intact Neurological: Yes: Alert Psychiatric: Yes: Alert Labs: CBC, BMP 05/10/20 07:31 05/10/20 07:31 INR, PTT INR 1.25 (0.83-1.09) H 04/25/20 06:00 Assessment/Plan Problem List - Problems (1) Severe sepsis Code(s): A41.9 - SEPSIS, UNSPECIFIED ORGANISM; R65.20 - SEVERE SEPSIS WITHOUT SEPTIC SHOCK (2) Bacteremia due to Gram-negative bacteria Code(s): R78.81 - BACTEREMIA (3) Status post spinal surgery Code(s): Z98.890 - OTHER SPECIFIED POSTPROCEDURAL STATES (4) Toxic metabolic encephalopathy Code(s): G92 - TOXIC ENCEPHALOPATHY (5) Urinary tract infection Code(s): N39.0 - URINARY TRACT INFECTION, SITE NOT SPECIFIED Qualifiers: Urinary tract infection type: site unspecified Hematuria presence: without hematuria Qualified Code(s): N39.0 - Urinary tract infection, site not specified Assessment/Plan 79 y.o. female with PMH of dementia, HTN, depression, lumbar stenosis s/p laminectomy, neuropathy who underwent removal of L3-L5 hardware, L3-S1 laminectomies, L5-S1 PLIF/L3-S1 PSIF on 04/09/20 and noted to develop fever up to 101.8F and increase in wbc to 16.8K along with lethargy and mild hypotension Severe Sepsis Gram negative/E. coli Bacteremia Pseudomonas UTI s/p lumbar wound I+D, s/p washout/wound vac placement plan ct current mgmt abx wound care rest as per the team
[2020-05-10] MEDS: ACETAMINOPHEN 325 MG TABLET (FP) PO PRN (09:45)
[2020-05-10] MEDS: ASCORBIC ACID 500 MG TABLET (FP) PO SCH ×2 (09:52→22:21)
[2020-05-10] MEDS: amLODIPine BESYLATE 2.5 MG TABLET (FP) PO SCH (09:52)
[2020-05-10] MEDS: SENNOSIDES/DOCUSATE COMBO (SENNA PLUS) TABLET (UD) PO PRN (09:53)
--- NOTE | 2020-05-10 10:35 | PN ---
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 05/05/20 05/05/20 05/06/20 14:44 23:56 05:44 Breakfast 75% Diet Tolerated Lunch 75% Supper 0 Temperature 98.4 F Blood Pressure 150/74 05/06/20 05/06/20 05/06/20 08:40 14:00 14:07 Breakfast 50% Diet Tolerated Well Lunch 75% Supper Temperature 98.1 F 98.3 F Blood Pressure 148/77 158/78 05/06/20 05/07/20 21:00 07:19 Breakfast Diet Tolerated Lunch Supper Temperature 98.7 F 98.2 F Blood Pressure 142/70 158/72 Laboratory Tests 05/03/20 05/04/20 05/07/20 07:34 06:45 06:30 WBC 14.8 H 12.7 H 11.6 H . Selected Entries 05/07/20 05/07/20 05/07/20 07:19 10:00 11:28 Breakfast 25% Diet Tolerated Poor Lunch Supper Temperature 98.2 F 98.4 F Pulse Rate 83 78 Blood Pressure 158/72 156/82 05/07/20 05/07/20 05/07/20 14:00 18:20 19:30 Breakfast Diet Tolerated Well Lunch 75% Supper Temperature 97.9 F 98.7 F 97.8 F Pulse Rate 88 86 101 H Blood Pressure 140/70 144/59 L 136/70 05/07/20 05/08/20 05/08/20 22:06 06:00 09:42 Breakfast 25% Diet Tolerated Fair Lunch Supper 25% Temperature 98.6 F Pulse Rate 89 Blood Pressure 151/78 Laboratory Tests 05/04/20 05/07/20 05/08/20 06:45 06:30 06:40 WBC 12.7 H 11.6 H 13.6 H Selected Entries 05/08/20 05/08/20 05/08/20 06:00 09:42 10:00 Breakfast 25% Diet Tolerated Lunch Supper Temperature 98.6 F 98.2 F Pulse Rate 89 82 Blood Pressure 151/78 146/73 05/08/20 05/08/20 05/08/20 14:47 17:40 20:17 Breakfast Diet Tolerated Lunch 100% Supper Temperature 98.1 F 98.3 F 98.1 F Pulse Rate 89 83 98 H Blood Pressure 149/65 137/70 159/75 05/08/20 05/09/20 23:04 06:00 Breakfast Diet Tolerated Well Lunch Supper 50% Temperature 98.1 F Pulse Rate 88 Blood Pressure 142/62 Laboratory Tests 05/07/20 05/08/20 05/09/20 06:30 06:40 06:26 WBC 11.6 H 13.6 H 15.5 H Selected Entries 05/09/20 05/09/20 05/10/20 10:58 21:46 06:00 Breakfast 100% Supper 50% Temperature 98 F Pulse Rate 93 H Blood Pressure 152/69 Laboratory Tests 05/09/20 05/10/20 06:26 07:31 WBC 15.5 H 14.2 H - Continue pureed diet with nectar thick liquids, magic cup BID, and Two jailene daily (mix w/cereal), Ensure pudding daily Give nutritional supplements throughout the day to increase needed nutrition for wound healing. Family refused supplemental TF/PEG. Tolerates diet well with fair intake.
--- NOTE | 2020-05-10 14:44 | CON.GU ---
Consult Consult Specialty:: Referred by:: Joellen Reason for Consultation:: avila leakage - History of Present Illness Chief Complaint: urinary incontinence History of Present Illness: 79 yo f adm 04/09/20 for removal of spinal orthopedic hardware, prolonged urethral catheter, now w urinary incontinence. cons req. 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 cauda equina syndrome) Cardio/Vascular: Yes: HTN Psych: Yes: Depression Musculoskeletal: Yes: Other (Spinal stenosis) Endocrine: Yes: Other (Neuropathy) - Past Surgical History Past Surgical History: Yes: Laminectomy (2013 lumbar laminectomies) - Alcohol/Substance Use Hx Alcohol Use: No - Smoking History Smoking history: Former smoker Have you smoked in the past 12 months: Yes If you are a former smoker, when did you quit?: 3 MONTHS AGO - Social History Usual Living Arrangement: Other (home health aid) Home Medications - Allergies Allergies/Adverse Reactions: Allergies Allergy/AdvReac Type Severity Reaction Status Date / Time No Known Allergies Allergy Verified 04/09/20 06:53 - Home Medications Home Medications: Ambulatory Orders Citalopram Hydrobromide [Citalopram HBr] 20 mg PO HS 02/18/20 Losartan Potassium [Cozaar] 25 mg PO DAILY 02/18/20 Mirtazapine 7.5 mg PO HS 04/09/20 Physical Exam- Vital Signs: Vital Signs Temperature 98 F 05/10/20 06:00 Pulse Rate 93 H 05/10/20 06:00 Respiratory Rate 20 05/10/20 06:00 Blood Pressure 152/69 05/10/20 06:00 O2 Sat by Pulse Oximetry (%) 94 L 05/09/20 21:00 Gastrointestinal: Yes: WNL, Normal Bowel Sounds, Soft Renal/: Yes: WNL, Avila Present, Incontinence. No: Bladder Distention, CVA Tenderness - Left, CVA Tenderness - Right Kidneys: Yes: WNL Pelvis: Yes: WNL External Genitalia: Yes: WNL Extremities: Yes: WNL Labs: CBC, BMP 05/10/20 07:31 05/10/20 07:31 Problem List - Problems (1) Urinary incontinence Assessment/Plan: avila changed and irrigated, drains well, no further leakage Code(s): R32 - UNSPECIFIED URINARY INCONTINENCE
[2020-05-10] MEDS: MULTIVIT-MINERALS ORAL LIQUID PO SCH (14:54)
[2020-05-10] MEDS: COLLAGENASE CLOSTRIDIUM HIST. 30 GRAMS TUBE TP SCH (14:54)
[2020-05-10] MEDS ORDERED: PT OWN MED DRAWER 7, Y5N ONE (15:28)
--- NOTE | 2020-05-10 16:57 | PN ---
Physical Exam: SUBJECTIVE: Patient seen and examined. denies any malaise. OBJECTIVE: Patient is a 79 year old female with history of hypertension, dementia, depression, spinal stenosis, neuropathy she is s/p removal of L3-L5 hardware, including L4-L5 intervertebral cage, L3-S1 laminectomy, L5-S1 PLIF, L3-S1 posterior instrumented spinal fusion. She is s/p multiple washouts for infected hardware. Per Dr. Cuenca, patient will have a washout of her wound tomorrow. Make NPO at midnight. Vital Signs Period Temp Pulse Resp BP Sys/Lepe Pulse Ox Last 24 Hr 98 F-99.8 F 88-93 16-20 139-160/69-86 94-96 GENERAL: awake, alert answers questions. hx of dementia but lucid HEAD: Normal with no signs of trauma. EYES: PERRL, extraocular movements intact, sclera anicteric, conjunctiva clear. No ptosis. ENT: Ears normal, nares patent, oropharynx clear without exudates NECK: Trachea midline, full range of motion, supple. LUNGS: Breath sounds diminished bilaterally, no wheezes - on 2 liters prn SPINE: surgical dressing saturated, yellow drainage with mild odor. patient for washout tomorrow with surgery HEART: Regular rate and rhythm ABDOMEN: Soft, nontender, nondistended, normoactive bowel sounds, no guarding EXTREMITIES: no edema. unstageable wound of right heel. elevate heels on pillows, add santyl. NEUROLOGICAL: Normal speech, gait not observed. PSYCH: Normal mood, normal affect Laboratory Results - last 24 hr 05/09/20 05/10/20 05/10/20 16:42 00:17 07:31 WBC 14.2 H RBC 3.78 Hgb 10.1 L Hct 31.8 L MCV 84.0 MCH 26.8 MCHC 31.9 L RDW 15.5 Plt Count 405 MPV 8.5 Absolute Neuts (auto) 11.0 H Neutrophils % 77.6 Lymphocytes % 8.7 Monocytes % 6.0 Eosinophils % 6.3 H Basophils % 1.4 Nucleated RBC % 0 Sodium Potassium Chloride Carbon Dioxide Anion Gap BUN Creatinine Est GFR (CKD-EPI)AfAm Est GFR (CKD-EPI)NonAf POC Glucometer 89 89 Random Glucose Calcium Magnesium Total Bilirubin AST ALT Alkaline Phosphatase Total Protein Albumin 05/10/20 05/10/20 07:31 11:32 WBC RBC Hgb Hct MCV MCH MCHC RDW Plt Count MPV Absolute Neuts (auto) Neutrophils % Lymphocytes % Monocytes % Eosinophils % Basophils % Nucleated RBC % Sodium 141 Potassium 4.4 Chloride 106 Carbon Dioxide 30 Anion Gap 4 L BUN 27.0 H Creatinine 0.6 Est GFR (CKD-EPI)AfAm 101.90 Est GFR (CKD-EPI)NonAf 87.92 POC Glucometer 112 Random Glucose 96 Calcium 9.8 Magnesium 1.9 Total Bilirubin 0.6 AST 26 ALT 27 Alkaline Phosphatase 118 H Total Protein 7.2 Albumin 2.2 L Active Medications Generic Name Dose Route Start Last Admin Trade Name Freq PRN Reason Stop Dose Admin Acetaminophen 650 mg 05/04/20 07:30 05/10/20 09:45 Tylenol - PO 650 mg Q6H PRN Administration Fever Amino Acids 30 ml 05/06/20 14:00 05/10/20 14:57 Prosource No Carb Liquid Pkt PO 30 ml TID JAYE Administration Amlodipine Besylate 2.5 mg 05/04/20 10:00 05/10/20 09:52 Norvasc - PO 2.5 mg DAILY JAYE Administration Ascorbic Acid 500 mg 05/04/20 10:00 05/10/20 09:52 Vitamin C - PO 500 mg BID JAYE Administration Citalopram Hydrobromide 20 mg 05/04/20 22:00 05/09/20 22:52 Celexa - PO 20 mg HS JAYE Administration Collagenase 1 applic 05/09/20 15:46 05/10/20 14:54 Santyl - TP 1 applic DAILY [facility] Administration Protocol Meropenem 1 gm/ Dextrose 100 mls @ 200 mls/hr 05/02/20 12:15 05/10/20 09:52 IVPB 200 mls/hr Q8H-IV JAYE Administration Daptomycin 500 mg/ Sodium 50 mls @ 50 mls/hr 05/04/20 16:00 05/09/20 18:10 Chloride IVPB 50 mls/hr Q24H JAYE Administration Protocol Mirtazapine 7.5 mg 05/04/20 22:00 05/09/20 22:52 Remeron - PO 7.5 mg HS JAYE Administration Multivitamins/Minerals 15 ml 05/04/20 10:00 05/10/20 14:54 Certavite-Antioxidant Liquid PO 15 ml DAILY [facility]E Administration Pantoprazole Sodium 40 mg 05/05/20 07:00 05/10/20 06:44 Protonix Packets For Oral Suspension - PO 40 mg ACBK JAYE Administration Polyethylene Glycol 17 gm 05/04/20 07:30 05/04/20 09:35 Miralax (For Daily Use) - PO 17 gm BID PRN Administration CONSTIPATION Senna/Docusate Sodium 1 tablet 05/04/20 07:30 05/10/20 09:53 Pericolace - PO 1 tablet BID PRN Administration CONSTIPATION ASSESSMENT/PLAN: Problem List - Problems (1) Severe sepsis Assessment/Plan: spinal stenosis. s/p removal of L3-L5 hardware, including L4-L5 intervertebral cage, L3-S1 laminectomy, L5-S1 PLIF, L3-S1 posterior instrumented spinal fusion. s/p multiple washouts. on daptomycin and meropenem per ID per ID, patient will need apx 6 weeks of antibiotics via picc line surgery follow up, per surgery, patient for washout tomorrow pain control monitor vitals, labs, mental status Code(s): A41.9 - SEPSIS, UNSPECIFIED ORGANISM; R65.20 - SEVERE SEPSIS WITHOUT SEPTIC SHOCK (2) Unstageable pressure ulcer of right heel Assessment/Plan: unstageable right heel pressure ulcer, purple in color, round. patient denies pain. plan: - elevate heels at all times. - add santyl daily - vascular consulted - monitor wound daily Code(s): L89.610 - PRESSURE ULCER OF RIGHT HEEL, UNSTAGEABLE (3) Poor appetite Assessment/Plan: improving. patient followed by RD per RD note: - pt is meeting ~ 73 % calorie and ~ 61 % Protein needs- s/p calorie count - Continue pureed diet with nectar thick liquids - continue magic cup BID, and Two jailene daily (mix w/cereal) - add Ensure pudding daily - rec increase Prosource TID Code(s): R63.0 - ANOREXIA (4) Toxic metabolic encephalopathy Assessment/Plan: mental status has improved and patient able to answer questions appropriately Code(s): G92 - TOXIC ENCEPHALOPATHY (5) Status post spinal surgery Assessment/Plan: Wound culture from 04/23/2020 grew pseudomonas resistant to zosyn and VRE sentivie to daptomycin. Continue daptomycin and meropenem. ID following monitor WBC, fevers, vitals leukocytosis improving Code(s): Z98.890 - OTHER SPECIFIED POSTPROCEDURAL STATES (6) At risk for dehydration due to poor fluid intake Assessment/Plan: as per RD recommendation note: (imported from RD note) - pt is meeting ~ 73 % calorie and ~ 61 % Protein needs- s/p calorie count - Continue pureed diet with nectar thick liquids - continue magic cup BID, and Two jailene daily (mix w/cereal) - add Ensure pudding daily - rec increase Prosource TID Code(s): Z91.89 - OTH PERSONAL RISK FACTORS, NOT ELSEWHERE CLASSIFIED (7) Prophylactic measure Assessment/Plan: fen monitor electrolytes dietary following full code Code(s): Z29.9 - ENCOUNTER FOR PROPHYLACTIC MEASURES, UNSPECIFIED (8) DVT prophylaxis Assessment/Plan: SCDs Code(s): Z29.9 - ENCOUNTER FOR PROPHYLACTIC MEASURES, UNSPECIFIED Visit type - Emergency Visit Emergency Visit: Yes ED Registration Date: 04/09/20 Care time: The patient presented to the Emergency Department on the above date and was hospitalized for further evaluation of their emergent condition. - New Patient This patient is new to me today: No - Critical Care Critical Care patient: No - Discharge Referral Referred to [facility] No - Medication Review Med list reviewed for High Risk Meds patients 65 and older: No
[2020-05-10] MEDS: DAPTOMYCIN 500 MG in SODIUM CHLORIDE 50 ML IVPB SCH (17:13)
[2020-05-10] MEDS: MIRTAZAPINE 15 MG TABLET (FP) PO SCH (22:21)
[2020-05-10] MEDS: CITALOPRAM HYDROBROMIDE 20 MG TABLET PO SCH (22:22)
[2020-05-11] MEDS: MEROPENEM 1 GM in DEXTROSE 5%-WATER 100 ML IVPB SCH ×3 (02:00→18:32)
[2020-05-11] MEDS ORDERED: DEXTROSE 5%-WATER 100 ML IVPB ONE ×3 (03:59→18:30)
[2020-05-11] MEDS ORDERED: MEROPENEM 1 GM VIAL (RESTRICTED TO ID) IVPB ONE ×3 (03:59→18:30)
[2020-05-11] MEDS: AMINO ACIDS/PROTEIN HYDROLYS 30 ML LIQUID.PKT PO SCH ×3 (06:50→22:02)
[2020-05-11] MEDS: PANTOPRAZOLE SOD 40 MG SUSPENSION PACKET PO SCH (06:50)
--- NOTE | 2020-05-11 10:03 | PN ---
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, Physician History of Present Illness: no new issues - Current Medication List Current Medications: Active Medications Acetaminophen (Tylenol -) 650 mg PO Q6H PRN PRN Reason: Fever Last Admin: 05/10/20 09:45 Dose: 650 mg Documented by: Amino Acids (Prosource No Carb Liquid Pkt) 30 ml PO TID [facility] Last Admin: 05/11/20 06:50 Dose: 30 ml Documented by: Amlodipine Besylate (Norvasc -) 5 mg PO DAILY [facility] Ascorbic Acid (Vitamin C -) 500 mg PO BID [facility] Last Admin: 05/10/20 22:21 Dose: 500 mg Documented by: Citalopram Hydrobromide (Celexa -) 20 mg PO HS [facility] Last Admin: 05/10/20 22:22 Dose: 20 mg Documented by: Collagenase (Santyl -) 1 applic TP DAILY [facility]; Protocol Last Admin: 05/10/20 14:54 Dose: 1 applic Documented by: Meropenem 1 gm/ Dextrose 100 mls @ 200 mls/hr IVPB Q8H-IV [facility] Last Admin: 05/11/20 02:00 Dose: 200 mls/hr Documented by: Daptomycin 500 mg/ Sodium (Chloride) 50 mls @ 50 mls/hr IVPB Q24H [facility]; Protocol Last Admin: 05/10/20 17:13 Dose: 50 mls/hr Documented by: Mirtazapine (Remeron -) 7.5 mg PO HS [facility] Last Admin: 05/10/20 22:21 Dose: 7.5 mg Documented by: Multivitamins/Minerals (Certavite-Antioxidant Liquid) 15 ml PO DAILY [facility] Last Admin: 05/10/20 14:54 Dose: 15 ml Documented by: Pantoprazole Sodium (Protonix Packets For Oral Suspension -) 40 mg PO ACBK [facility] Last Admin: 05/11/20 06:50 Dose: 40 mg Documented by: Polyethylene Glycol (Miralax (For Daily Use) -) 17 gm PO BID PRN PRN Reason: CONSTIPATION Last Admin: 05/04/20 09:35 Dose: 17 gm Documented by: Senna/Docusate Sodium (Pericolace -) 1 tablet PO BID PRN PRN Reason: CONSTIPATION Last Admin: 05/10/20 09:53 Dose: 1 tablet Documented by: - Objective Vital Signs: Vital Signs Temperature 98.7 F 05/11/20 06:00 Pulse Rate 92 H 05/11/20 06:00 Respiratory Rate 20 05/11/20 06:00 Blood Pressure 148/81 05/11/20 06:00 O2 Sat by Pulse Oximetry (%) 96 05/11/20 06:00 Constitutional: Yes: No Distress, Calm Cardiovascular: Yes: S1, S2 Respiratory: Yes: Regular, CTA Bilaterally Gastrointestinal: Yes: Normal Bowel Sounds, Soft Musculoskeletal: Yes: WNL Extremities: Yes: WNL Wound/Incision: Yes: Dressing Dry and Intact Neurological: Yes: Alert, Oriented Psychiatric: Yes: Alert, Oriented Labs: CBC, BMP 05/10/20 07:31 05/10/20 07:31 INR, PTT INR 1.25 (0.83-1.09) H 04/25/20 06:00 Assessment/Plan Problem List - Problems (1) Severe sepsis Code(s): A41.9 - SEPSIS, UNSPECIFIED ORGANISM; R65.20 - SEVERE SEPSIS WITHOUT SEPTIC SHOCK (2) Bacteremia due to Gram-negative bacteria Code(s): R78.81 - BACTEREMIA (3) Status post spinal surgery Code(s): Z98.890 - OTHER SPECIFIED POSTPROCEDURAL STATES (4) Toxic metabolic encephalopathy Code(s): G92 - TOXIC ENCEPHALOPATHY (5) Urinary tract infection Code(s): N39.0 - URINARY TRACT INFECTION, SITE NOT SPECIFIED Qualifiers: Urinary tract infection type: site unspecified Hematuria presence: without hematuria Qualified Code(s): N39.0 - Urinary tract infection, site not specified Assessment/Plan 79 y.o. female with PMH of dementia, HTN, depression, lumbar stenosis s/p laminectomy, neuropathy who underwent removal of L3-L5 hardware, L3-S1 laminectomies, L5-S1 PLIF/L3-S1 PSIF on 04/09/20 and noted to develop fever up to 101.8F and increase in wbc to 16.8K along with lethargy and mild hypotension Severe Sepsis Gram negative/E. coli Bacteremia Pseudomonas UTI s/p lumbar wound I+D, s/p washout/wound vac placement plan ct current mgmt abx wound care rest as per the team
[2020-05-11] MEDS ORDERED: PT OWN MED DRAWER 7, Y5N ONE ×2 (10:23→17:00)
[2020-05-11] MEDS: amLODIPine BESYLATE 5 MG TABLET (FP) PO SCH (10:27)
[2020-05-11] MEDS ORDERED: EPHEDRINE SULFATE/0.9% NACL/PF 50 MG/10 ML SYRINGE NR ONE (11:11)
[2020-05-11] MEDS ORDERED: PROPOFOL 20 ML ONE ×2 (11:11)
[2020-05-11] MEDS ORDERED: PHENYLEPHRINE HCL 10 MG/1 ML SINGLE DOSE VIAL ONE (11:11)
[2020-05-11] MEDS ORDERED: SUCCINYLCHOLINE CHLORIDE 200 MG/10 ML SYRINGE ONE (11:11)
[2020-05-11] MEDS ORDERED: LIDOCAINE HCL/PF 2% SDV 5ML VIAL ONE (11:11)
[2020-05-11] MEDS ORDERED: MIDAZOLAM HCL 2 MG/2 ML SINGLE DOSE VIAL ONE (11:12)
[2020-05-11] MEDS ORDERED: ROCURONIUM BROMIDE 50 MG/5 ML SYRINGE ONE (12:30)
[2020-05-11] MEDS ORDERED: NEOSTIGMINE METHYLSULFATE 0.5 MG/1 ML - 10 ML MDV ONE (12:50)
[2020-05-11] MEDS ORDERED: ONDANSETRON 4 MG/2 ML VIAL ONE (12:50)
[2020-05-11] MEDS ORDERED: GLYCOPYRROLATE 0.2 MG/1 ML VIAL ONE (12:50)
--- NOTE | 2020-05-11 13:54 | PN ---
Physical Exam: SUBJECTIVE: Patient seen and examined OBJECTIVE: Patient is a 79 year old female with history of hypertension, dementia, depression, spinal stenosis, neuropathy she is s/p removal of L3-L5 hardware, including L4-L5 intervertebral cage, L3-S1 laminectomy, L5-S1 PLIF, L3-S1 posterior instrumented spinal fusion. She is s/p multiple washouts for infected hardware. Patient is s/p washout of her wound today. Vital Signs Period Temp Pulse Resp BP Sys/Lepe Pulse Ox Last 24 Hr 98.7 F-99.8 F 88-92 20-20 139-148/69-81 94-96 GENERAL: awake, alert answers questions. hx of dementia but lucid HEAD: Normal with no signs of trauma. EYES: PERRL, extraocular movements intact, sclera anicteric, conjunctiva clear. No ptosis. ENT: Ears normal, nares patent, oropharynx clear without exudates NECK: Trachea midline, full range of motion, supple. LUNGS: Breath sounds diminished bilaterally, no wheezes - on 2 liters prn SPINE: s/p washout of wound today HEART: Regular rate and rhythm ABDOMEN: Soft, nontender, nondistended, normoactive bowel sounds, no guarding EXTREMITIES: no edema. unstageable wound of right heel. elevate heels on pillows, add santyl. NEUROLOGICAL: Normal speech, gait not observed. PSYCH: Normal mood, normal affect Laboratory Results - last 24 hr 05/10/20 05/10/20 05/11/20 16:57 22:27 06:52 POC Glucometer 93 89 99 Active Medications Generic Name Dose Route Start Last Admin Trade Name Fortinoq PRN Reason Stop Dose Admin Acetaminophen 650 mg 05/04/20 07:30 05/10/20 09:45 Tylenol - PO 650 mg Q6H PRN Administration Fever Amino Acids 30 ml 05/06/20 14:00 05/11/20 06:50 Prosource No Carb Liquid Pkt PO 30 ml TID JAYE Administration Amlodipine Besylate 5 mg 05/11/20 08:34 05/11/20 10:27 Norvasc - PO 5 mg DAILY JAYE Administration Ascorbic Acid 500 mg 05/04/20 10:00 05/10/20 22:21 Vitamin C - PO 500 mg BID JAYE Administration Citalopram Hydrobromide 20 mg 05/04/20 22:00 05/10/20 22:22 Celexa - PO 20 mg HS JAYE Administration Collagenase 1 applic 05/09/20 15:46 05/10/20 14:54 Santyl - TP 1 applic DAILY JAYE Administration Protocol Meropenem 1 gm/ Dextrose 100 mls @ 200 mls/hr 05/02/20 12:15 05/11/20 10:27 IVPB 200 mls/hr Q8H-IV J[facility]E Administration Daptomycin 500 mg/ Sodium 50 mls @ 50 mls/hr 05/04/20 16:00 05/10/20 17:13 Chloride IVPB 50 mls/hr Q24H JAYE Administration Protocol Mirtazapine 7.5 mg 05/04/20 22:00 05/10/20 22:21 Remeron - PO 7.5 mg HS JAYE Administration Multivitamins/Minerals 15 ml 05/04/20 10:00 05/10/20 14:54 Certavite-Antioxidant Liquid PO 15 ml DAILY J[facility]E Administration Pantoprazole Sodium 40 mg 05/05/20 07:00 05/11/20 06:50 Protonix Packets For Oral Suspension - PO 40 mg ACBK J[facility]E Administration Polyethylene Glycol 17 gm 05/04/20 07:30 05/04/20 09:35 Miralax (For Daily Use) - PO 17 gm BID PRN Administration CONSTIPATION Senna/Docusate Sodium 1 tablet 05/04/20 07:30 05/10/20 09:53 Pericolace - PO 1 tablet BID PRN Administration CONSTIPATION ASSESSMENT/PLAN: Problem List - Problems (1) Severe sepsis Assessment/Plan: spinal stenosis. s/p removal of L3-L5 hardware, including L4-L5 intervertebral cage, L3-S1 laminectomy, L5-S1 PLIF, L3-S1 posterior instrumented spinal fusion. s/p multiple washouts. on daptomycin and meropenem per ID per ID, patient will need apx 6 weeks of antibiotics via picc line, patient now agrees to SNF placement patient s/p washout today pain control monitor vitals, labs, mental status Code(s): A41.9 - SEPSIS, UNSPECIFIED ORGANISM; R65.20 - SEVERE SEPSIS WITHOUT SEPTIC SHOCK (2) Unstageable pressure ulcer of right heel Assessment/Plan: unstageable right heel pressure ulcer, purple in color, round. patient denies pain. plan: - elevate heels at all times. - add santyl daily - vascular consulted - monitor wound daily Code(s): L89.610 - PRESSURE ULCER OF RIGHT HEEL, UNSTAGEABLE (3) Poor appetite Assessment/Plan: improving. patient followed by RD per RD note: - pt is meeting ~ 73 % calorie and ~ 61 % Protein needs- s/p calorie count - Continue pureed diet with nectar thick liquids - continue magic cup BID, and Two jailene daily (mix w/cereal) - add Ensure pudding daily - rec increase Prosource TID Code(s): R63.0 - ANOREXIA (4) Toxic metabolic encephalopathy Assessment/Plan: mental status has improved and patient able to answer questions appropriately Code(s): G92 - TOXIC ENCEPHALOPATHY (5) Status post spinal surgery Assessment/Plan: Wound culture from 04/23/2020 grew pseudomonas resistant to zosyn and VRE sentivie to daptomycin. Continue daptomycin and meropenem. ID following monitor WBC, fevers, vitals leukocytosis improving Code(s): Z98.890 - OTHER SPECIFIED POSTPROCEDURAL STATES (6) At risk for dehydration due to poor fluid intake Assessment/Plan: as per RD recommendation note: (imported from RD note) - pt is meeting ~ 73 % calorie and ~ 61 % Protein needs- s/p calorie count - Continue pureed diet with nectar thick liquids - continue magic cup BID, and Two jailene daily (mix w/cereal) - add Ensure pudding daily - rec increase Prosource TID Code(s): Z91.89 - OTH PERSONAL RISK FACTORS, NOT ELSEWHERE CLASSIFIED (7) Prophylactic measure Assessment/Plan: fen monitor electrolytes dietary following full code Code(s): Z29.9 - ENCOUNTER FOR PROPHYLACTIC MEASURES, UNSPECIFIED (8) DVT prophylaxis Assessment/Plan: SCDs Code(s): Z29.9 - ENCOUNTER FOR PROPHYLACTIC MEASURES, UNSPECIFIED Visit type - Emergency Visit Emergency Visit: Yes ED Registration Date: 04/09/20 Care time: The patient presented to the Emergency Department on the above date and was hospitalized for further evaluation of their emergent condition. - New Patient This patient is new to me today: No - Critical Care Critical Care patient: No - Discharge Referral Referred to [facility] Med P.C.: No - Medication Review Med list reviewed for High Risk Meds patients 65 and older: No
[2020-05-11] MEDS ORDERED: ONDANSETRON 4 MG/2 ML VIAL IVPUSH PRN ×2 (13:56→13:57)
[2020-05-11] MEDS ORDERED: LABETALOL HCL 5 MG/1 ML (200MG/40ML VIAL) IVPB PRN (14:00)
--- NOTE | 2020-05-11 14:27 | OP ---
Operative Note - Note: Operative Date: 05/11/20 Pre-Operative Diagnosis: Infected lumbar wound Operation: IandD Wound VAC Findings: Purulence diffuse granulation tissue no dural leak cavity midsection of wound 5 by 5 by 5cm Post-Operative Diagnosis: Same as Pre-op Surgeon: Seth Cuenca Anesthesia: General Specimens Removed: Pre and post washout culture sticks Drains & Tubes with Location: Wound VAC Blood Volume Replaced (mls): 1,000 Operative Report Dictated: Yes
--- NOTE | 2020-05-11 15:58 | PN ---
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 (short form) - Note 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: 79F s/p I&D lumbar spine POD #0. -f/u Wound Care consult w/Dr. Hernandez/Dr. Soriano. -Pain medication: per anaesthesia team; NO NSAID's. -f/u NEW OR wound cultures x 3 (aerobic, anaerobic, AFB, fungal). -Maintain avila catheter until patient comfortably ambulating. -DVT PPx: -Mechanical only: LITA's, SCD's. -f/u AM labs. -Incentive spirometry. -PT/OT/Rehab, OOB. -WBAT B/L LE. -No heavy lifting (>5 lbs), bending or twisting x 6 months post op. -B/L UE & LE NV checks. -Care per ICU, ID, GI, and primary medical hospitalist teams. -Will follow. Seth Cuenca MD (Orthopaedic Surgery).
--- NOTE | 2020-05-11 16:02 | OP ---
DATE OF OPERATION: DATE OF DICTATION: 05/11/2020 SURGEON: Seth Cuenca MD SURGICAL PROCEDURE: 1. Incision, drainage, debridement, and irrigation deep lumbar spine wound abscess (subfascial). (42424) 2. Application of negative pressure therapy wound vac ([id number]) ANESTHESIA: General. Patient preoperatively evaluated, brought in the operating room. In the supine position, placed under general anesthesia, placed in the prone position on a Bay frame, the original dressings removed, the suture line as well as the twan all removed. The tissue revealed presence of purulence, but attempts at granulation tissue are readily noted diffusely throughout the wound. After cleansing of the tissues with a 2-L saline washout, the tissues were washed with Betadine scrub, and then repeat washout performed. Culture sticks were taken before the washout, and then repeat culture sticks were taken following the washout accordingly. The exposed dura was identified. Valsalva maneuver at prolonged 40 mmHg was performed, no leakage noted. Debridement of soft tissue as well as bone and skin performed. A Wound VAC was packed into the wound and the Wound VAC sealed and suction device started with no complications. At that point Dr. Hernandez came into the operating room. I described the wound to him. He is keen on going ahead with continued management of this with the plastic surgical team. Because of the hard tissues and the defect space which measures 5 x 5 x 5 cm, I have asked him to help me with management of this wound, and with the combined plastic surgical team for a muscle flap to fill in the space of the above-mentioned cavity. This will then be continued with repeat Wound VACs and then delayed primary closure as Dr. Hernandez sees fit. MD SHREYA Mcfarland/[id number] MTDD
[2020-05-11] MEDS: DAPTOMYCIN 500 MG in SODIUM CHLORIDE 50 ML IVPB SCH (17:03)
[2020-05-11] MEDS: ASCORBIC ACID 500 MG TABLET (FP) PO SCH ×2 (17:04→22:01)
[2020-05-11] MEDS: LACTATED RINGERS SOLUTION 1,000 ML IV SCH (17:04)
[2020-05-11] MEDS: MULTIVIT-MINERALS ORAL LIQUID PO SCH (17:04)
[2020-05-11] MEDS: COLLAGENASE CLOSTRIDIUM HIST. 30 GRAMS TUBE TP SCH (17:05)
[2020-05-11 18:37] LABS: BASO % 0.6 % (0-2.0); EOS % 3.3 % (0-4.5); HEMATOCRIT 30.1 % (32.4-45.2); HEMOGLOBIN 9.7 GM/dL (10.7-15.3); LYMPH % 8.4 % (8-40); MCH 26.7 pg (25.7-33.7); MCHC 32.2 g/dl (32.0-36.0); MEAN CELL VOLUME 82.9 fl (80-96); MEAN PLT VOLUME 8.1 fl (7.5-11.1); MONO % 6.3 % (3.8-10.2); NEUT % 81.4 % (42.8-82.8); PLATELET COUNT 393 K/MM3 (134-434); RBC 3.63 M/mm3 (3.60-5.2); RDW 15.5 % (11.6-15.6)
[2020-05-11 19:02] LABS: ALBUMIN 2.1 g/dl (3.4-5.0); BILIRUBIN,TOTAL 0.5 mg/dL (0.2-1); BLOOD UREA NITROGEN 25.6 mg/dL (7-18); CALCIUM 9.8 mg/dL (8.5-10.1); CREATININE 0.7 mg/dL (0.55-1.3); MAGNESIUM 1.9 mg/dL (1.8-2.4); POTASSIUM 4.7 mmol/L (3.5-5.1); TOT PROT 6.9 g/dl (6.4-8.2)
[2020-05-11] MEDS: CITALOPRAM HYDROBROMIDE 20 MG TABLET PO SCH (22:01)
[2020-05-11] MEDS: DOCUSATE SODIUM 100 MG CAPSULE (FP) PO SCH (22:01)
[2020-05-11] MEDS: oxyCODONE HCL 5 MG TABLET PO PRN (22:01)
[2020-05-11] MEDS: MIRTAZAPINE 15 MG TABLET (FP) PO SCH (22:02)
[2020-05-12] MEDS ORDERED: DEXTROSE 5%-WATER 100 ML IVPB ONE ×2 (00:52→09:15)
[2020-05-12] MEDS ORDERED: MEROPENEM 1 GM VIAL (RESTRICTED TO ID) IVPB ONE ×3 (00:52→17:24)
[2020-05-12] MEDS: MEROPENEM 1 GM in DEXTROSE 5%-WATER 100 ML IVPB SCH ×3 (01:01→17:26)
[2020-05-12] MEDS: PANTOPRAZOLE SOD 40 MG SUSPENSION PACKET PO SCH (06:18)
[2020-05-12] MEDS: DOCUSATE SODIUM 100 MG CAPSULE (FP) PO SCH ×3 (06:18→22:30)
[2020-05-12] MEDS: AMINO ACIDS/PROTEIN HYDROLYS 30 ML LIQUID.PKT PO SCH ×3 (06:18→22:30)
[2020-05-12] MEDS ORDERED: PT OWN MED DRAWER 7, Y5N ONE (09:15)
[2020-05-12] MEDS: ACETAMINOPHEN 325 MG TABLET (FP) PO PRN (09:22)
[2020-05-12] MEDS: ASCORBIC ACID 500 MG TABLET (FP) PO SCH ×2 (09:23→22:30)
[2020-05-12] MEDS: amLODIPine BESYLATE 5 MG TABLET (FP) PO SCH (09:23)
[2020-05-12] MEDS: MULTIVIT-MINERALS ORAL LIQUID PO SCH (09:24)
--- NOTE | 2020-05-12 10:10 | PN ---
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, Physician History of Present Illness: stable s/p washout of the spine - Current Medication List Current Medications: Active Medications Acetaminophen (Tylenol -) 650 mg PO Q6H PRN PRN Reason: Fever Last Admin: 05/12/20 09:22 Dose: 650 mg Documented by: Amino Acids (Prosource No Carb Liquid Pkt) 30 ml PO TID [facility] Last Admin: 05/12/20 06:18 Dose: 30 ml Documented by: Amlodipine Besylate (Norvasc -) 5 mg PO DAILY [facility] Last Admin: 05/12/20 09:23 Dose: 5 mg Documented by: Ascorbic Acid (Vitamin C -) 500 mg PO BID [facility] Last Admin: 05/12/20 09:23 Dose: 500 mg Documented by: Citalopram Hydrobromide (Celexa -) 20 mg PO [facility] Last Admin: 05/11/20 22:01 Dose: 20 mg Documented by: Collagenase (Santyl -) 1 applic TP DAILY [facility]; Protocol Last Admin: 05/11/20 17:05 Dose: 1 applic Documented by: Docusate Sodium (Colace -) 100 mg PO TID [facility] Last Admin: 05/12/20 06:18 Dose: 100 mg Documented by: Fentanyl (Sublimaze Injection -) 25 mcg IVPUSH [id number] PRN PRN Reason: PAIN-PACU ORDER X 4 DOSES ONLY Fentanyl (Sublimaze Injection -) 25 mcg IVPUSH [id number] PRN PRN Reason: PAIN-PACU ORDER X 4 DOSES ONLY Meropenem 1 gm/ Dextrose 100 mls @ 200 mls/hr IVPB Q8H-IV [facility] Last Admin: 05/12/20 09:23 Dose: 200 mls/hr Documented by: Daptomycin 500 mg/ Sodium (Chloride) 50 mls @ 50 mls/hr IVPB Q24H [facility]; Protocol Last Admin: 05/11/20 17:03 Dose: 50 mls/hr Documented by: Lactated Ringer's (Lactated Ringers Solution) 1,000 mls @ 75 mls/hr IV ASDIR [facility] Last Admin: 05/11/20 17:04 Dose: Not Given Documented by: Mirtazapine (Remeron -) 7.5 mg PO HS [facility] Last Admin: 05/11/20 22:02 Dose: 7.5 mg Documented by: Multivitamins/Minerals (Certavite-Antioxidant Liquid) 15 ml PO DAILY [facility] Last Admin: 05/12/20 09:24 Dose: 15 ml Documented by: Ondansetron HCl (Zofran Injection) 4 mg IVPUSH Q6H PRN PRN Reason: NAUSEA AND/OR VOMITING Oxycodone HCl (Roxicodone -) 5 mg PO Q6H PRN PRN Reason: PAIN LEVEL 7 - 10 Last Admin: 05/11/20 22:01 Dose: 5 mg Documented by: Pantoprazole Sodium (Protonix Packets For Oral Suspension -) 40 mg PO ACBK [facility] Last Admin: 05/12/20 06:18 Dose: 40 mg Documented by: Polyethylene Glycol (Miralax (For Daily Use) -) 17 gm PO BID PRN PRN Reason: CONSTIPATION Last Admin: 05/04/20 09:35 Dose: 17 gm Documented by: Senna/Docusate Sodium (Pericolace -) 1 tablet PO BID PRN PRN Reason: CONSTIPATION Last Admin: 05/10/20 09:53 Dose: 1 tablet Documented by: - Objective Vital Signs: Vital Signs Temperature 98.7 F 05/12/20 06:00 Pulse Rate 79 05/12/20 06:00 Respiratory Rate 20 05/12/20 06:00 Blood Pressure 119/56 L 05/12/20 06:00 O2 Sat by Pulse Oximetry (%) 97 05/12/20 06:00 Constitutional: Yes: No Distress, Calm Cardiovascular: Yes: S1, S2 Respiratory: Yes: Regular, CTA Bilaterally Gastrointestinal: Yes: Normal Bowel Sounds, Soft Musculoskeletal: Yes: WNL Extremities: Yes: Other Wound/Incision: Yes: Dressing Dry and Intact Neurological: Yes: Alert Labs: CBC, BMP 05/11/20 18:10 05/11/20 18:10 INR, PTT INR 1.25 (0.83-1.09) H 04/25/20 06:00 Assessment/Plan Problem List - Problems (1) Severe sepsis Code(s): A41.9 - SEPSIS, UNSPECIFIED ORGANISM; R65.20 - SEVERE SEPSIS WITHOUT SEPTIC SHOCK (2) Bacteremia due to Gram-negative bacteria Code(s): R78.81 - BACTEREMIA (3) Status post spinal surgery Code(s): Z98.890 - OTHER SPECIFIED POSTPROCEDURAL STATES (4) Toxic metabolic encephalopathy Code(s): G92 - TOXIC ENCEPHALOPATHY (5) Urinary tract infection Code(s): N39.0 - URINARY TRACT INFECTION, SITE NOT SPECIFIED Qualifiers: Urinary tract infection type: site unspecified Hematuria presence: without hematuria Qualified Code(s): N39.0 - Urinary tract infection, site not specified Assessment/Plan 79 y.o. female with PMH of dementia, HTN, depression, lumbar stenosis s/p laminectomy, neuropathy who underwent removal of L3-L5 hardware, L3-S1 laminectomies, L5-S1 PLIF/L3-S1 PSIF on 04/09/20 and noted to develop fever up to 101.8F and increase in wbc to 16.8K along with lethargy and mild hypotension Severe Sepsis Gram negative/E. coli Bacteremia Pseudomonas UTI s/p lumbar wound I+D, s/p washout/wound vac placement plan ct current mgmt abx wound care rest as per the team await for repeat cx from washout
[2020-05-12 10:26] LABS: BASO % 0.4 % (0-2.0); EOS % 4.9 % (0-4.5); HEMATOCRIT 29.1 % (32.4-45.2); HEMOGLOBIN 9.4 GM/dL (10.7-15.3); LYMPH % 5.3 % (8-40); MCH 26.6 pg (25.7-33.7); MCHC 32.2 g/dl (32.0-36.0); MEAN CELL VOLUME 82.8 fl (80-96); MONO % 6.5 % (3.8-10.2); NEUT % 82.9 % (42.8-82.8); PLATELET COUNT 389 K/MM3 (134-434); RBC 3.51 M/mm3 (3.60-5.2); RDW 15.4 % (11.6-15.6); WHITE BLOOD COUNT 13.2 K/mm3 (4.0-10.0)
[2020-05-12 10:53] LABS: BILIRUBIN,TOTAL 0.5 mg/dL (0.2-1); CALCIUM 9.3 mg/dL (8.5-10.1); CREATININE 0.6 mg/dL (0.55-1.3); MAGNESIUM 1.8 mg/dL (1.8-2.4); POTASSIUM 4.3 mmol/L (3.5-5.1); TOT PROT 6.6 g/dl (6.4-8.2)
--- NOTE | 2020-05-12 11:37 | PN ---
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, Physician Chief Complaint: Pt seen and assessed at bedside in ICU. s/p back surgery (s/p Removal of L3-L5 hardware, including L4-L5 intervertebral cage, L3-S1 laminectomy, L5-S1 PLIF, L3-S1 posterior instrumented spinal fusion 04/09/20), multiple wash out, yesterday, is doing well no pain, no fever, no chills, . - Current Medication List Current Medications: Active Medications Acetaminophen (Tylenol -) 650 mg PO Q6H PRN PRN Reason: Fever Last Admin: 05/12/20 09:22 Dose: 650 mg Documented by: Amino Acids (Prosource No Carb Liquid Pkt) 30 ml PO TID [facility] Last Admin: 05/12/20 06:18 Dose: 30 ml Documented by: Amlodipine Besylate (Norvasc -) 5 mg PO DAILY [facility] Last Admin: 05/12/20 09:23 Dose: 5 mg Documented by: Ascorbic Acid (Vitamin C -) 500 mg PO BID [facility] Last Admin: 05/12/20 09:23 Dose: 500 mg Documented by: Citalopram Hydrobromide (Celexa -) 20 mg PO HS [facility] Last Admin: 05/11/20 22:01 Dose: 20 mg Documented by: Collagenase (Santyl -) 1 applic TP DAILY [facility]; Protocol Last Admin: 05/11/20 17:05 Dose: 1 applic Documented by: Docusate Sodium (Colace -) 100 mg PO TID [facility] Last Admin: 05/12/20 06:18 Dose: 100 mg Documented by: Fentanyl (Sublimaze Injection -) 25 mcg IVPUSH [id number] PRN PRN Reason: PAIN-PACU ORDER X 4 DOSES ONLY Fentanyl (Sublimaze Injection -) 25 mcg IVPUSH [id number] PRN PRN Reason: PAIN-PACU ORDER X 4 DOSES ONLY Meropenem 1 gm/ Dextrose 100 mls @ 200 mls/hr IVPB Q8H-IV [facility] Last Admin: 05/12/20 09:23 Dose: 200 mls/hr Documented by: Daptomycin 500 mg/ Sodium (Chloride) 50 mls @ 50 mls/hr IVPB Q24H [facility]; Protocol Last Admin: 05/11/20 17:03 Dose: 50 mls/hr Documented by: Lactated Ringer's (Lactated Ringers Solution) 1,000 mls @ 75 mls/hr IV ASDIR [facility] Last Admin: 05/11/20 17:04 Dose: Not Given Documented by: Mirtazapine (Remeron -) 7.5 mg PO HS [facility] Last Admin: 05/11/20 22:02 Dose: 7.5 mg Documented by: Multivitamins/Minerals (Certavite-Antioxidant Liquid) 15 ml PO DAILY [facility] Last Admin: 05/12/20 09:24 Dose: 15 ml Documented by: Ondansetron HCl (Zofran Injection) 4 mg IVPUSH Q6H PRN PRN Reason: NAUSEA AND/OR VOMITING Oxycodone HCl (Roxicodone -) 5 mg PO Q6H PRN PRN Reason: PAIN LEVEL 7 - 10 Last Admin: 05/11/20 22:01 Dose: 5 mg Documented by: Pantoprazole Sodium (Protonix Packets For Oral Suspension -) 40 mg PO ACBK [facility] Last Admin: 05/12/20 06:18 Dose: 40 mg Documented by: Polyethylene Glycol (Miralax (For Daily Use) -) 17 gm PO BID PRN PRN Reason: CONSTIPATION Last Admin: 05/04/20 09:35 Dose: 17 gm Documented by: Senna/Docusate Sodium (Pericolace -) 1 tablet PO BID PRN PRN Reason: CONSTIPATION Last Admin: 05/10/20 09:53 Dose: 1 tablet Documented by: - Objective Vital Signs: Vital Signs Temperature 99.1 F 05/12/20 10:00 Pulse Rate 88 05/12/20 10:00 Respiratory Rate 18 05/12/20 10:00 Blood Pressure 151/77 05/12/20 10:00 O2 Sat by Pulse Oximetry (%) 98 05/12/20 10:00 Constitutional: Yes: No Distress, Calm Eyes: Yes: Conjunctiva Clear, EOM Intact HENT: Yes: Atraumatic, Normocephalic Neck: Yes: Supple, Trachea Midline Cardiovascular: Yes: Regular Rate and Rhythm Respiratory: Yes: Regular, CTA Bilaterally Gastrointestinal: Yes: Normal Bowel Sounds, Soft Musculoskeletal: Yes: Other (spine wash out.) Extremities: Yes: Other (no edema. unstageable wound of right heel.) Edema: No Neurological: Yes: WNL Labs: CBC, BMP 05/12/20 10:05 05/12/20 10:05 INR, PTT INR 1.25 (0.83-1.09) H 04/25/20 06:00 Impression/Plan Impression/Plan: Problem List - Problems (1) Severe sepsis Assessment/Plan: spinal stenosis. s/p removal of L3-L5 hardware, including L4-L5 intervertebral cage, L3-S1 laminectomy, L5-S1 PLIF, L3-S1 posterior instrumented spinal fusion. s/p multiple washouts. Wound culture from 04/23/2020 grew pseudomonas resistant to zosyn and VRE sentivie to daptomycin. on daptomycin and meropenem per ID per ID, patient will need apx 6 weeks of antibiotics via picc line, patient now agrees to SNF placement patient s/p washout yesterday. pain control (2) Unstageable pressure ulcer of right heel Assessment/Plan: unstageable right heel pressure ulcer, purple in color, round. painless plan: - elevate heels at all times. - add santyl daily - vascular consulted - monitor wound daily Code(s): L89.610 - PRESSURE ULCER OF RIGHT HEEL, UNSTAGEABLE (3) Prophylactic measure Assessment/Plan: fen monitor electrolytes dietary following (4) DVT prophylaxis Assessment/Plan: SCDs Visit type - Emergency Visit Emergency Visit: No - New Patient This patient is new to me today: Yes Date on this admission: 05/12/20 - Critical Care Critical Care patient: No - Discharge Referral Referred to [facility] Med P.C.: No - Medication Review Med list reviewed for High Risk Meds patients 65 and older: Yes
[2020-05-12] MEDS: COLLAGENASE CLOSTRIDIUM HIST. 30 GRAMS TUBE TP SCH (13:14)
[2020-05-12] MEDS: oxyCODONE HCL 5 MG TABLET PO PRN ×2 (13:20→22:30)
[2020-05-12] MEDS: LACTATED RINGERS SOLUTION 1,000 ML IV SCH (15:22)
[2020-05-12] MEDS: DAPTOMYCIN 500 MG in SODIUM CHLORIDE 50 ML IVPB SCH (17:18)
[2020-05-12 18:12] LABS: BASO % 0.3 % (0-2.0); EOS % 5.2 % (0-4.5); HEMATOCRIT 31.2 % (32.4-45.2); HEMOGLOBIN 9.9 GM/dL (10.7-15.3); MCH 26.7 pg (25.7-33.7); MCHC 31.6 g/dl (32.0-36.0); MEAN CELL VOLUME 84.7 fl (80-96); MEAN PLT VOLUME 9.4 fl (7.5-11.1); MONO % 5.9 % (3.8-10.2); NEUT % 81.6 % (42.8-82.8); PLATELET COUNT 405 K/MM3 (134-434); RBC 3.69 M/mm3 (3.60-5.2); RDW 15.7 % (11.6-15.6); WHITE BLOOD COUNT 12.5 K/mm3 (4.0-10.0)
[2020-05-12 18:41] LABS: ALBUMIN 2.1 g/dl (3.4-5.0); BILIRUBIN,TOTAL 0.4 mg/dL (0.2-1); BLOOD UREA NITROGEN 28.1 mg/dL (7-18); CALCIUM 9.5 mg/dL (8.5-10.1); CREATININE 0.7 mg/dL (0.55-1.3); TOT PROT 7.2 g/dl (6.4-8.2)
[2020-05-12] MEDS: CITALOPRAM HYDROBROMIDE 20 MG TABLET PO SCH (22:31)
[2020-05-12] MEDS: MIRTAZAPINE 15 MG TABLET (FP) PO SCH (22:32)
[2020-05-13] MEDS ORDERED: MEROPENEM 1 GM VIAL (RESTRICTED TO ID) IVPB ONE ×3 (00:57→17:07)
[2020-05-13] MEDS ORDERED: DEXTROSE 5%-WATER 100 ML IVPB ONE ×3 (00:57→17:07)
[2020-05-13] MEDS: MEROPENEM 1 GM in DEXTROSE 5%-WATER 100 ML IVPB SCH ×3 (01:01→17:23)
[2020-05-13] MEDS: DOCUSATE SODIUM 100 MG CAPSULE (FP) PO SCH ×3 (06:43→21:51)
[2020-05-13] MEDS: AMINO ACIDS/PROTEIN HYDROLYS 30 ML LIQUID.PKT PO SCH ×3 (06:43→21:52)
[2020-05-13] MEDS: PANTOPRAZOLE SOD 40 MG SUSPENSION PACKET PO SCH (06:43)
[2020-05-13 08:52] LABS: BASO % 1.3 % (0-2.0); EOS % 5.1 % (0-4.5); HEMATOCRIT 29.7 % (32.4-45.2); HEMOGLOBIN 9.5 GM/dL (10.7-15.3); MCH 26.9 pg (25.7-33.7); MCHC 31.9 g/dl (32.0-36.0); MEAN CELL VOLUME 84.2 fl (80-96); MEAN PLT VOLUME 8.6 fl (7.5-11.1); MONO % 6.5 % (3.8-10.2); NEUT % 82.1 % (42.8-82.8); PLATELET COUNT 402 K/MM3 (134-434); RBC 3.53 M/mm3 (3.60-5.2); RDW 15.4 % (11.6-15.6); WHITE BLOOD COUNT 14.3 K/mm3 (4.0-10.0)
--- NOTE | 2020-05-13 09:08 | PN ---
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, Physician Chief Complaint: . s/p back surgery (s/p Removal of L3-L5 hardware, including L4-L5 intervertebral cage, L3-S1 laminectomy, L5-S1 PLIF, L3-S1 posterior instrumented spinal fusion 04/09/20), multiple wash out, had last one 2 days ago, is doing well no pain, no fever, no chills, . - Current Medication List Current Medications: Active Medications Acetaminophen (Tylenol -) 650 mg PO Q6H PRN PRN Reason: Fever Last Admin: 05/12/20 09:22 Dose: 650 mg Documented by: Amino Acids (Prosource No Carb Liquid Pkt) 30 ml PO TID [facility] Last Admin: 05/13/20 06:43 Dose: 30 ml Documented by: Amlodipine Besylate (Norvasc -) 5 mg PO DAILY [facility] Last Admin: 05/12/20 09:23 Dose: 5 mg Documented by: Ascorbic Acid (Vitamin C -) 500 mg PO BID [facility] Last Admin: 05/12/20 22:30 Dose: 500 mg Documented by: Citalopram Hydrobromide (Celexa -) 20 mg PO [facility] Last Admin: 05/12/20 22:31 Dose: 20 mg Documented by: Collagenase (Santyl -) 1 applic TP DAILY [facility]; Protocol Last Admin: 05/12/20 13:14 Dose: Not Given Documented by: Docusate Sodium (Colace -) 100 mg PO TID [facility] Last Admin: 05/13/20 06:43 Dose: 100 mg Documented by: Fentanyl (Sublimaze Injection -) 25 mcg IVPUSH [id number] PRN PRN Reason: PAIN-PACU ORDER X 4 DOSES ONLY Fentanyl (Sublimaze Injection -) 25 mcg IVPUSH [id number] PRN PRN Reason: PAIN-PACU ORDER X 4 DOSES ONLY Meropenem 1 gm/ Dextrose 100 mls @ 200 mls/hr IVPB Q8H-IV [facility] Last Admin: 05/13/20 01:01 Dose: 200 mls/hr Documented by: Daptomycin 500 mg/ Sodium (Chloride) 50 mls @ 50 mls/hr IVPB Q24H [facility]; Protocol Last Admin: 05/12/20 17:18 Dose: 50 mls/hr Documented by: Mirtazapine (Remeron -) 7.5 mg PO [facility] Last Admin: 05/12/20 22:32 Dose: 7.5 mg Documented by: Multivitamins/Minerals (Certavite-Antioxidant Liquid) 15 ml PO DAILY [facility] Last Admin: 05/12/20 09:24 Dose: 15 ml Documented by: Ondansetron HCl (Zofran Injection) 4 mg IVPUSH Q6H PRN PRN Reason: NAUSEA AND/OR VOMITING Oxycodone HCl (Roxicodone -) 5 mg PO Q6H PRN PRN Reason: PAIN LEVEL 7 - 10 Last Admin: 05/12/20 22:30 Dose: 5 mg Documented by: Pantoprazole Sodium (Protonix Packets For Oral Suspension -) 40 mg PO ACBK [facility] Last Admin: 05/13/20 06:43 Dose: 40 mg Documented by: Polyethylene Glycol (Miralax (For Daily Use) -) 17 gm PO BID PRN PRN Reason: CONSTIPATION Last Admin: 05/04/20 09:35 Dose: 17 gm Documented by: Senna/Docusate Sodium (Pericolace -) 1 tablet PO BID PRN PRN Reason: CONSTIPATION Last Admin: 05/10/20 09:53 Dose: 1 tablet Documented by: - Objective Vital Signs: Vital Signs Temperature 98.4 F 05/13/20 06:00 Pulse Rate 91 H 05/13/20 06:00 Respiratory Rate 20 05/13/20 06:00 Blood Pressure 142/89 05/13/20 06:00 O2 Sat by Pulse Oximetry (%) 96 05/13/20 06:00 Constitutional: Yes: Well Nourished, No Distress, Calm Eyes: Yes: Conjunctiva Clear, EOM Intact HENT: Yes: Atraumatic, Normocephalic Neck: Yes: Supple, Trachea Midline Cardiovascular: Yes: Regular Rate and Rhythm Respiratory: Yes: CTA Bilaterally Gastrointestinal: Yes: Normal Bowel Sounds, Soft Musculoskeletal: Yes: Other (sacral wound vac in place, and draining brownish fluid,) Edema: No Integumentary: Yes: Other (DTI heel R side, unstageable.) Labs: CBC, BMP 05/13/20 07:55 INR, PTT INR 1.25 (0.83-1.09) H 04/25/20 06:00 Impression/Plan Impression/Plan: Problem List - Problems (1) Severe sepsis Assessment/Plan: spinal stenosis. s/p removal of L3-L5 hardware, including L4-L5 intervertebral cage, L3-S1 laminectomy, L5-S1 PLIF, L3-S1 posterior instrumented spinal fusion. s/p multiple washouts. Wound culture from 04/23/2020 grew pseudomonas resistant to zosyn and VRE sentivie to daptomycin. on daptomycin and meropenem per ID per ID, patient will need apx 6 weeks of antibiotics via picc line, patient now agrees to SNF placement patient s/p washout yesterday. pain control (2) Unstageable pressure ulcer of right heel Assessment/Plan: DTI right heel pressure ulcer, purple in color, round. painless, no open wound. plan: - elevate heels at all times. - add santyl daily - vascular consulted - monitor wound daily (3) Prophylactic measure Assessment/Plan: fen monitor electrolytes dietary following (4) DVT prophylaxis Assessment/Plan: SCDs Visit type - Emergency Visit Emergency Visit: No - New Patient This patient is new to me today: No - Critical Care Critical Care patient: No - Discharge Referral Referred to [facility] Med [facility] No - Medication Review Med list reviewed for High Risk Meds patients 65 and older: Yes
[2020-05-13 09:25] LABS: ALBUMIN 1.9 g/dl (3.4-5.0); BILIRUBIN,TOTAL 0.4 mg/dL (0.2-1); BLOOD UREA NITROGEN 26.4 mg/dL (7-18); CALCIUM 9.4 mg/dL (8.5-10.1); CREATININE 0.7 mg/dL (0.55-1.3); POTASSIUM 4.4 mmol/L (3.5-5.1); TOT PROT 6.8 g/dl (6.4-8.2)
[2020-05-13] MEDS: ASCORBIC ACID 500 MG TABLET (FP) PO SCH ×2 (09:40→21:52)
[2020-05-13] MEDS: amLODIPine BESYLATE 5 MG TABLET (FP) PO SCH (09:40)
[2020-05-13] MEDS: ACETAMINOPHEN 325 MG TABLET (FP) PO PRN ×2 (09:40→21:51)
[2020-05-13] MEDS: MULTIVIT-MINERALS ORAL LIQUID PO SCH (09:41)
[2020-05-13] MEDS: COLLAGENASE CLOSTRIDIUM HIST. 30 GRAMS TUBE TP SCH (09:41)
--- NOTE | 2020-05-13 12:10 | PN ---
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, Physician History of Present Illness: stable no new issues - Current Medication List Current Medications: Active Medications Acetaminophen (Tylenol -) 650 mg PO Q6H PRN PRN Reason: Fever Last Admin: 05/13/20 09:40 Dose: 650 mg Documented by: Amino Acids (Prosource No Carb Liquid Pkt) 30 ml PO TID [facility] Last Admin: 05/13/20 06:43 Dose: 30 ml Documented by: Amlodipine Besylate (Norvasc -) 5 mg PO DAILY [facility] Last Admin: 05/13/20 09:40 Dose: 5 mg Documented by: Ascorbic Acid (Vitamin C -) 500 mg PO BID [facility] Last Admin: 05/13/20 09:40 Dose: 500 mg Documented by: Citalopram Hydrobromide (Celexa -) 20 mg PO HS [facility] Last Admin: 05/12/20 22:31 Dose: 20 mg Documented by: Collagenase (Santyl -) 1 applic TP DAILY [facility]; Protocol Last Admin: 05/13/20 09:41 Dose: Not Given Documented by: Docusate Sodium (Colace -) 100 mg PO TID [facility] Last Admin: 05/13/20 06:43 Dose: 100 mg Documented by: Fentanyl (Sublimaze Injection -) 25 mcg IVPUSH [id number] PRN PRN Reason: PAIN-PACU ORDER X 4 DOSES ONLY Fentanyl (Sublimaze Injection -) 25 mcg IVPUSH [id number] PRN PRN Reason: PAIN-PACU ORDER X 4 DOSES ONLY Meropenem 1 gm/ Dextrose 100 mls @ 200 mls/hr IVPB Q8H-IV [facility] Last Admin: 05/13/20 09:40 Dose: 200 mls/hr Documented by: Daptomycin 500 mg/ Sodium (Chloride) 50 mls @ 50 mls/hr IVPB Q24H [facility]; Protocol Last Admin: 05/12/20 17:18 Dose: 50 mls/hr Documented by: Mirtazapine (Remeron -) 7.5 mg PO [facility] Last Admin: 05/12/20 22:32 Dose: 7.5 mg Documented by: Multivitamins/Minerals (Certavite-Antioxidant Liquid) 15 ml PO DAILY [facility] Last Admin: 05/13/20 09:41 Dose: 15 ml Documented by: Ondansetron HCl (Zofran Injection) 4 mg IVPUSH Q6H PRN PRN Reason: NAUSEA AND/OR VOMITING Oxycodone HCl (Roxicodone -) 5 mg PO Q6H PRN PRN Reason: PAIN LEVEL 7 - 10 Last Admin: 05/12/20 22:30 Dose: 5 mg Documented by: Pantoprazole Sodium (Protonix Packets For Oral Suspension -) 40 mg PO ACBK [facility] Last Admin: 05/13/20 06:43 Dose: 40 mg Documented by: Polyethylene Glycol (Miralax (For Daily Use) -) 17 gm PO BID PRN PRN Reason: CONSTIPATION Last Admin: 05/04/20 09:35 Dose: 17 gm Documented by: Senna/Docusate Sodium (Pericolace -) 1 tablet PO BID PRN PRN Reason: CONSTIPATION Last Admin: 05/10/20 09:53 Dose: 1 tablet Documented by: - Objective Vital Signs: Vital Signs Temperature 98.4 F 05/13/20 06:00 Pulse Rate 91 H 05/13/20 06:00 Respiratory Rate 20 05/13/20 06:00 Blood Pressure 142/89 05/13/20 06:00 O2 Sat by Pulse Oximetry (%) 96 05/13/20 06:00 Constitutional: Yes: No Distress, Calm Cardiovascular: Yes: S1, S2 Respiratory: Yes: Regular, CTA Bilaterally Gastrointestinal: Yes: Normal Bowel Sounds, Soft Musculoskeletal: Yes: WNL Extremities: Yes: Other Wound/Incision: Yes: Dressing Dry and Intact Neurological: Yes: Alert, Oriented Psychiatric: Yes: Alert, Oriented Labs: CBC, BMP 05/13/20 07:55 05/13/20 07:55 INR, PTT INR 1.25 (0.83-1.09) H 04/25/20 06:00 Assessment/Plan Problem List - Problems (1) Severe sepsis Code(s): A41.9 - SEPSIS, UNSPECIFIED ORGANISM; R65.20 - SEVERE SEPSIS WITHOUT SEPTIC SHOCK (2) Bacteremia due to Gram-negative bacteria Code(s): R78.81 - BACTEREMIA (3) Status post spinal surgery Code(s): Z98.890 - OTHER SPECIFIED POSTPROCEDURAL STATES (4) Toxic metabolic encephalopathy Code(s): G92 - TOXIC ENCEPHALOPATHY (5) Urinary tract infection Code(s): N39.0 - URINARY TRACT INFECTION, SITE NOT SPECIFIED Qualifiers: Urinary tract infection type: site unspecified Hematuria presence: without hematuria Qualified Code(s): N39.0 - Urinary tract infection, site not specified Assessment/Plan 79 y.o. female with PMH of dementia, HTN, depression, lumbar stenosis s/p laminectomy, neuropathy who underwent removal of L3-L5 hardware, L3-S1 laminectomies, L5-S1 PLIF/L3-S1 PSIF on 04/09/20 and noted to develop fever up to 101.8F and increase in wbc to 16.8K along with lethargy and mild hypotension Severe Sepsis Gram negative/E. coli Bacteremia Pseudomonas UTI s/p lumbar wound I+D, s/p washout/wound vac placement plan ct current mgmt abx wound care rest as per the team await for repeat cx from washout
[2020-05-13] MEDS: DAPTOMYCIN 500 MG in SODIUM CHLORIDE 50 ML IVPB SCH (15:14)
[2020-05-13] MEDS ORDERED: PT OWN MED DRAWER 7, Y5N ONE (18:03)
[2020-05-13] MEDS: oxyCODONE HCL 5 MG TABLET PO PRN (18:06)
[2020-05-13] MEDS: MIRTAZAPINE 15 MG TABLET (FP) PO SCH (21:51)
[2020-05-13] MEDS: CITALOPRAM HYDROBROMIDE 20 MG TABLET PO SCH (21:51)
[2020-05-14] MEDS ORDERED: MEROPENEM 1 GM VIAL (RESTRICTED TO ID) IVPB ONE ×3 (01:52→16:55)
[2020-05-14] MEDS ORDERED: DEXTROSE 5%-WATER 100 ML IVPB ONE ×3 (01:53→16:55)
[2020-05-14] MEDS: MEROPENEM 1 GM in DEXTROSE 5%-WATER 100 ML IVPB SCH ×3 (01:57→17:31)
[2020-05-14] MEDS: DOCUSATE SODIUM 100 MG CAPSULE (FP) PO SCH ×3 (05:47→22:13)
[2020-05-14] MEDS: AMINO ACIDS/PROTEIN HYDROLYS 30 ML LIQUID.PKT PO SCH ×3 (05:47→23:00)
[2020-05-14] MEDS: PANTOPRAZOLE SOD 40 MG SUSPENSION PACKET PO SCH (07:08)
[2020-05-14 08:43] LABS: BASO % 0.5 % (0-2.0); EOS % 4.1 % (0-4.5); HEMATOCRIT 28.8 % (32.4-45.2); HEMOGLOBIN 9.1 GM/dL (10.7-15.3); LYMPH % 5.3 % (8-40); MCH 26.5 pg (25.7-33.7); MCHC 31.8 g/dl (32.0-36.0); MEAN CELL VOLUME 83.5 fl (80-96); MEAN PLT VOLUME 8.6 fl (7.5-11.1); MONO % 6.4 % (3.8-10.2); NEUT % 83.7 % (42.8-82.8); PLATELET COUNT 417 K/MM3 (134-434); RBC 3.44 M/mm3 (3.60-5.2); RDW 15.8 % (11.6-15.6); WHITE BLOOD COUNT 16.1 K/mm3 (4.0-10.0)
[2020-05-14 09:20] LABS: BILIRUBIN,TOTAL 0.3 mg/dL (0.2-1); BLOOD UREA NITROGEN 30.2 mg/dL (7-18); CALCIUM 9.9 mg/dL (8.5-10.1); CREATININE 0.7 mg/dL (0.55-1.3); POTASSIUM 4.5 mmol/L (3.5-5.1); TOT PROT 7.2 g/dl (6.4-8.2)
--- NOTE | 2020-05-14 09:43 | PN ---
Physical Exam: SUBJECTIVE: Patient seen and examined OBJECTIVE: Patient is a 79 year old female with history of hypertension, dementia, depression, spinal stenosis, neuropathy she is s/p removal of L3-L5 hardware, including L4-L5 intervertebral cage, L3-S1 laminectomy, L5-S1 PLIF, L3-S1 posterior instrumented spinal fusion. She is s/p multiple washouts for infected hardware. Patient is s/p washout of her wound on 05/11/2020 covid status: negative 04/24/2020 --- WBC trending up today. for chest xray. Vital Signs Period Temp Pulse Resp BP Sys/Lepe Pulse Ox Last 24 Hr 97.3 F-100.2 F 82-91 18-20 127-140/56-73 95-98 GENERAL: awake, weak appearing, answers questions. hx of dementia but lucid HEAD: Normal with no signs of trauma. EYES: PERRL, extraocular movements intact, sclera anicteric, conjunctiva clear. No ptosis. ENT: Ears normal, nares patent, oropharynx clear without exudates NECK: Trachea midline, full range of motion, supple. LUNGS: +left lung crackles, tolerating room air. for chest xray today SPINE: s/p washout of wound . on wound vac. HEART: Regular rate and rhythm ABDOMEN: Soft, nontender, nondistended, normoactive bowel sounds, no guarding EXTREMITIES: no edema. unstageable wound of right heel. elevate heels on pillows, on simba NEUROLOGICAL: Normal speech, gait not observed. PSYCH: Normal mood, normal affect Laboratory Results - last 24 hr 05/13/20 05/13/20 05/13/20 11:56 17:22 22:25 WBC RBC Hgb Hct MCV MCH MCHC RDW Plt Count MPV Absolute Neuts (auto) Neutrophils % Lymphocytes % Monocytes % Eosinophils % Basophils % Nucleated RBC % Sodium Potassium Chloride Carbon Dioxide Anion Gap BUN Creatinine Est GFR (CKD-EPI)AfAm Est GFR (CKD-EPI)NonAf POC Glucometer 117 108 144 Random Glucose Calcium Magnesium Total Bilirubin AST ALT Alkaline Phosphatase Total Protein Albumin 05/14/20 05/14/20 05/14/20 06:50 08:01 08:01 WBC 16.1 H RBC 3.44 L Hgb 9.1 L Hct 28.8 L MCV 83.5 MCH 26.5 MCHC 31.8 L RDW 15.8 H Plt Count 417 MPV 8.6 Absolute Neuts (auto) 13.5 H Neutrophils % 83.7 H Lymphocytes % 5.3 L Monocytes % 6.4 Eosinophils % 4.1 Basophils % 0.5 Nucleated RBC % 0 Sodium 142 Potassium 4.5 Chloride 107 Carbon Dioxide 30 Anion Gap 5 L BUN 30.2 H Creatinine 0.7 Est GFR (CKD-EPI)AfAm 96.86 Est GFR (CKD-EPI)NonAf 83.57 POC Glucometer 118 Random Glucose 99 Calcium 9.9 Magnesium 2.0 Total Bilirubin 0.3 AST 74 H ALT 53 Alkaline Phosphatase 159 H Total Protein 7.2 Albumin 2.0 L Active Medications Generic Name Dose Route Start Last Admin Trade Name Freq PRN Reason Stop Dose Admin Acetaminophen 650 mg 05/04/20 07:30 05/13/20 21:51 Tylenol - PO 650 mg Q6H PRN Administration Fever Amino Acids 30 ml 05/06/20 14:00 05/14/20 05:47 Prosource No Carb Liquid Pkt PO 30 ml TID [facility] Administration Amlodipine Besylate 5 mg 05/11/20 08:34 05/13/20 09:40 Norvasc - PO 5 mg DAILY [facility] Administration Ascorbic Acid 500 mg 05/04/20 10:00 05/13/20 21:52 Vitamin C - PO 500 mg BID [facility] Administration Citalopram Hydrobromide 20 mg 05/04/20 22:00 05/13/20 21:51 Celexa - PO 20 mg HS [facility] Administration Collagenase 1 applic 05/09/20 15:46 05/13/20 09:41 Santyl - TP Not Given DAILY [facility] Protocol Docusate Sodium 100 mg 05/11/20 22:00 05/14/20 05:47 Colace - PO 100 mg TID [facility] Administration Fentanyl 25 mcg 05/11/20 13:56 Sublimaze Injection - IVPUSH [id number] PRN PAIN-PACU ORDER X 4 DOSES ONLY Fentanyl 25 mcg 05/11/20 14:44 Sublimaze Injection - IVPUSH [id number] PRN PAIN-PACU ORDER X 4 DOSES ONLY Meropenem 1 gm/ Dextrose 100 mls @ 200 mls/hr 05/02/20 12:15 05/14/20 01:57 IVPB 200 mls/hr Q8H-IV [facility] Administration Daptomycin 500 mg/ Sodium 50 mls @ 50 mls/hr 05/04/20 16:00 05/13/20 15:14 Chloride IVPB 50 mls/hr Q24H [facility]E Administration Protocol Mirtazapine 7.5 mg 05/04/20 22:00 05/13/20 21:51 Remeron - PO 7.5 mg HS [facility] Administration Multivitamins/Minerals 15 ml 05/04/20 10:00 05/13/20 09:41 Certavite-Antioxidant Liquid PO 15 ml DAILY [facility] Administration Ondansetron HCl 4 mg 05/11/20 13:57 Zofran Injection IVPUSH Q6H PRN NAUSEA AND/OR VOMITING Oxycodone HCl 5 mg 05/11/20 17:35 05/13/20 18:06 Roxicodone - PO 5 mg Q6H PRN Administration PAIN LEVEL 7 - 10 Pantoprazole Sodium 40 mg 05/05/20 07:00 05/14/20 07:08 Protonix Packets For Oral Suspension - PO 40 mg ACBK [facility] Administration Polyethylene Glycol 17 gm 05/04/20 07:30 05/04/20 09:35 Miralax (For Daily Use) - PO 17 gm BID PRN Administration CONSTIPATION Senna/Docusate Sodium 1 tablet 05/04/20 07:30 05/10/20 09:53 Pericolace - PO 1 tablet BID PRN Administration CONSTIPATION ASSESSMENT/PLAN: Problem List - Problems (1) Severe sepsis Assessment/Plan: spinal stenosis. s/p removal of L3-L5 hardware, including L4-L5 intervertebral cage, L3-S1 laminectomy, L5-S1 PLIF, L3-S1 posterior instrumented spinal fusion. s/p multiple washouts. on daptomycin and meropenem per ID per ID, patient will need apx 6 weeks of antibiotics via picc line, patient now agrees to SNF placement patient s/p washout 05/12/2020 pain control monitor vitals, labs, mental status Code(s): A41.9 - SEPSIS, UNSPECIFIED ORGANISM; R65.20 - SEVERE SEPSIS WITHOUT SEPTIC SHOCK (2) Unstageable pressure ulcer of right heel Assessment/Plan: unstageable right heel pressure ulcer, purple in color, round. patient denies pain. plan: - elevate heels at all times. - add santyl daily - vascular evaluated, notes reviewed - monitor wound daily Code(s): L89.610 - PRESSURE ULCER OF RIGHT HEEL, UNSTAGEABLE (3) Poor appetite Assessment/Plan: improving. patient followed by RD per RD note: - pt is meeting ~ 73 % calorie and ~ 61 % Protein needs- s/p calorie count - Continue pureed diet with nectar thick liquids - continue magic cup BID, and Two jailene daily (mix w/cereal) - add Ensure pudding daily - rec increase Prosource TID Code(s): R63.0 - ANOREXIA (4) Toxic metabolic encephalopathy Assessment/Plan: mental status has improved Code(s): G92 - TOXIC ENCEPHALOPATHY (5) Status post spinal surgery Assessment/Plan: Wound culture from 04/23/2020 grew pseudomonas resistant to zosyn and VRE s entivie to daptomycin. Continue daptomycin and meropenem. ID following monitor WBC, fevers, vitals leukocytosis improving Code(s): Z98.890 - OTHER SPECIFIED POSTPROCEDURAL STATES (6) At risk for dehydration due to poor fluid intake Assessment/Plan: as per RD recommendation note: (imported from RD note) - pt is meeting ~ 73 % calorie and ~ 61 % Protein needs- s/p calorie count - Continue pureed diet with nectar thick liquids - continue magic cup BID, and Two jailene daily (mix w/cereal) - add Ensure pudding daily - rec increase Prosource TID Code(s): Z91.89 - OTH PERSONAL RISK FACTORS, NOT ELSEWHERE CLASSIFIED (7) Prophylactic measure Assessment/Plan: fen monitor electrolytes dietary following full code Code(s): Z29.9 - ENCOUNTER FOR PROPHYLACTIC MEASURES, UNSPECIFIED (8) DVT prophylaxis Assessment/Plan: SCDs Code(s): Z29.9 - ENCOUNTER FOR PROPHYLACTIC MEASURES, UNSPECIFIED Visit type - Emergency Visit Emergency Visit: Yes ED Registration Date: 04/09/20 Care time: The patient presented to the Emergency Department on the above date and was hospitalized for further evaluation of their emergent condition. - New Patient This patient is new to me today: No - Critical Care Critical Care patient: No - Discharge Referral Referred to [facility] Med P.C[facility] No - Medication Review Med list reviewed for High Risk Meds patients 65 and older: No
[2020-05-14] MEDS ORDERED: PT OWN MED DRAWER 7, Y5N ONE ×2 (09:51→16:55)
[2020-05-14] MEDS: amLODIPine BESYLATE 5 MG TABLET (FP) PO SCH (10:02)
[2020-05-14] MEDS: ASCORBIC ACID 500 MG TABLET (FP) PO SCH ×2 (10:02→22:13)
[2020-05-14] MEDS: MULTIVIT-MINERALS ORAL LIQUID PO SCH (10:02)
[2020-05-14] MEDS: COLLAGENASE CLOSTRIDIUM HIST. 30 GRAMS TUBE TP SCH (10:03)
--- NOTE | 2020-05-14 10:57 | PN ---
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, Physician History of Present Illness: no new issues - Current Medication List Current Medications: Active Medications Acetaminophen (Tylenol -) 650 mg PO Q6H PRN PRN Reason: Fever Last Admin: 05/13/20 21:51 Dose: 650 mg Documented by: Amino Acids (Prosource No Carb Liquid Pkt) 30 ml PO TID [facility] Last Admin: 05/14/20 05:47 Dose: 30 ml Documented by: Amlodipine Besylate (Norvasc -) 5 mg PO DAILY [facility] Last Admin: 05/14/20 10:02 Dose: 5 mg Documented by: Ascorbic Acid (Vitamin C -) 500 mg PO BID [facility] Last Admin: 05/14/20 10:02 Dose: 500 mg Documented by: Citalopram Hydrobromide (Celexa -) 20 mg PO HS [facility] Last Admin: 05/13/20 21:51 Dose: 20 mg Documented by: Collagenase (Santyl -) 1 applic TP DAILY [facility]; Protocol Last Admin: 05/14/20 10:03 Dose: 1 applic Documented by: Docusate Sodium (Colace -) 100 mg PO TID [facility] Last Admin: 05/14/20 05:47 Dose: 100 mg Documented by: Fentanyl (Sublimaze Injection -) 25 mcg IVPUSH [id number] PRN PRN Reason: PAIN-PACU ORDER X 4 DOSES ONLY Fentanyl (Sublimaze Injection -) 25 mcg IVPUSH [id number] PRN PRN Reason: PAIN-PACU ORDER X 4 DOSES ONLY Meropenem 1 gm/ Dextrose 100 mls @ 200 mls/hr IVPB Q8H-IV [facility] Last Admin: 05/14/20 10:02 Dose: 200 mls/hr Documented by: Daptomycin 500 mg/ Sodium (Chloride) 50 mls @ 50 mls/hr IVPB Q24H [facility]; Protocol Last Admin: 05/13/20 15:14 Dose: 50 mls/hr Documented by: Mirtazapine (Remeron -) 7.5 mg PO HS [facility] Last Admin: 05/13/20 21:51 Dose: 7.5 mg Documented by: Multivitamins/Minerals (Certavite-Antioxidant Liquid) 15 ml PO DAILY [facility] Last Admin: 05/14/20 10:02 Dose: 15 ml Documented by: Ondansetron HCl (Zofran Injection) 4 mg IVPUSH Q6H PRN PRN Reason: NAUSEA AND/OR VOMITING Oxycodone HCl (Roxicodone -) 5 mg PO Q6H PRN PRN Reason: PAIN LEVEL 7 - 10 Last Admin: 05/13/20 18:06 Dose: 5 mg Documented by: Pantoprazole Sodium (Protonix Packets For Oral Suspension -) 40 mg PO ACBK [facility] Last Admin: 05/14/20 07:08 Dose: 40 mg Documented by: Polyethylene Glycol (Miralax (For Daily Use) -) 17 gm PO BID PRN PRN Reason: CONSTIPATION Last Admin: 05/04/20 09:35 Dose: 17 gm Documented by: Senna/Docusate Sodium (Pericolace -) 1 tablet PO BID PRN PRN Reason: CONSTIPATION Last Admin: 05/10/20 09:53 Dose: 1 tablet Documented by: - Objective Vital Signs: Vital Signs Temperature 100.2 F H 05/13/20 20:24 Pulse Rate 91 H 05/13/20 20:24 Respiratory Rate 20 05/13/20 21:00 Blood Pressure 140/73 05/13/20 20:24 O2 Sat by Pulse Oximetry (%) 97 05/13/20 21:00 Constitutional: Yes: No Distress, Calm Cardiovascular: Yes: S1, S2 Respiratory: Yes: Regular, CTA Bilaterally Gastrointestinal: Yes: Normal Bowel Sounds, Soft Musculoskeletal: Yes: WNL Extremities: Yes: Other Wound/Incision: Yes: Other (wound vac) Neurological: Yes: Alert Psychiatric: Yes: Alert Labs: CBC, BMP 05/14/20 08:01 05/14/20 08:01 INR, PTT INR 1.25 (0.83-1.09) H 04/25/20 06:00 Assessment/Plan Problem List - Problems (1) Severe sepsis Code(s): A41.9 - SEPSIS, UNSPECIFIED ORGANISM; R65.20 - SEVERE SEPSIS WITHOUT SEPTIC SHOCK (2) Bacteremia due to Gram-negative bacteria Code(s): R78.81 - BACTEREMIA (3) Status post spinal surgery Code(s): Z98.890 - OTHER SPECIFIED POSTPROCEDURAL STATES (4) Toxic metabolic encephalopathy Code(s): G92 - TOXIC ENCEPHALOPATHY (5) Urinary tract infection Code(s): N39.0 - URINARY TRACT INFECTION, SITE NOT SPECIFIED Qualifiers: Urinary tract infection type: site unspecified Hematuria presence: without hematuria Qualified Code(s): N39.0 - Urinary tract infection, site not specified Assessment/Plan 79 y.o. female with PMH of dementia, HTN, depression, lumbar stenosis s/p laminectomy, neuropathy who underwent removal of L3-L5 hardware, L3-S1 laminectomies, L5-S1 PLIF/L3-S1 PSIF on 04/09/20 and noted to develop fever up to 101.8F and increase in wbc to 16.8K along with lethargy and mild hypotension Severe Sepsis Gram negative/E. coli Bacteremia Pseudomonas UTI s/p lumbar wound I+D, s/p washout/wound vac placement plan ct current mgmt abx wound care rest as per the team await for repeat cx from washout
[2020-05-14] MEDS: DAPTOMYCIN 500 MG in SODIUM CHLORIDE 50 ML IVPB SCH (16:58)
[2020-05-14] MEDS: CITALOPRAM HYDROBROMIDE 20 MG TABLET PO SCH (22:13)
[2020-05-14] MEDS: MIRTAZAPINE 15 MG TABLET (FP) PO SCH (22:13)
[2020-05-14] MEDS: ACETAMINOPHEN 325 MG TABLET (FP) PO PRN (22:13)
[2020-05-15] MEDS ORDERED: DEXTROSE 5%-WATER 100 ML IVPB ONE ×3 (03:11→17:04)
[2020-05-15] MEDS ORDERED: MEROPENEM 1 GM VIAL (RESTRICTED TO ID) IVPB ONE ×3 (03:11→17:03)
[2020-05-15] MEDS: MEROPENEM 1 GM in DEXTROSE 5%-WATER 100 ML IVPB SCH ×3 (03:23→17:09)
[2020-05-15] MEDS: PANTOPRAZOLE SOD 40 MG SUSPENSION PACKET PO SCH (06:35)
[2020-05-15] MEDS: DOCUSATE SODIUM 100 MG CAPSULE (FP) PO SCH ×3 (06:35→21:34)
[2020-05-15] MEDS: AMINO ACIDS/PROTEIN HYDROLYS 30 ML LIQUID.PKT PO SCH ×3 (06:35→21:34)
[2020-05-15 08:18] LABS: BASO % 0.3 % (0-2.0); EOS % 3.6 % (0-4.5); HEMATOCRIT 27.9 % (32.4-45.2); HEMOGLOBIN 8.9 GM/dL (10.7-15.3); LYMPH % 6.6 % (8-40); MCH 26.8 pg (25.7-33.7); MCHC 31.8 g/dl (32.0-36.0); MEAN CELL VOLUME 84.3 fl (80-96); MEAN PLT VOLUME 8.8 fl (7.5-11.1); MONO % 7.3 % (3.8-10.2); NEUT % 82.2 % (42.8-82.8); PLATELET COUNT 465 K/MM3 (134-434); RBC 3.32 M/mm3 (3.60-5.2); RDW 15.2 % (11.6-15.6); WHITE BLOOD COUNT 13.8 K/mm3 (4.0-10.0)
--- NOTE | 2020-05-15 08:20 | PN ---
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, Physician History of Present Illness: no new issues - Current Medication List Current Medications: Active Medications Acetaminophen (Tylenol -) 650 mg PO Q6H PRN PRN Reason: Fever Last Admin: 05/14/20 22:13 Dose: 650 mg Documented by: Amino Acids (Prosource No Carb Liquid Pkt) 30 ml PO TID [facility] Last Admin: 05/15/20 06:35 Dose: 30 ml Documented by: Amlodipine Besylate (Norvasc -) 5 mg PO DAILY [facility] Last Admin: 05/14/20 10:02 Dose: 5 mg Documented by: Ascorbic Acid (Vitamin C -) 500 mg PO BID [facility] Last Admin: 05/14/20 22:13 Dose: 500 mg Documented by: Citalopram Hydrobromide (Celexa -) 20 mg PO HS [facility] Last Admin: 05/14/20 22:13 Dose: 20 mg Documented by: Collagenase (Santyl -) 1 applic TP DAILY [facility]; Protocol Last Admin: 05/14/20 10:03 Dose: 1 applic Documented by: Docusate Sodium (Colace -) 100 mg PO TID [facility] Last Admin: 05/15/20 06:35 Dose: 100 mg Documented by: Fentanyl (Sublimaze Injection -) 25 mcg IVPUSH [id number] PRN PRN Reason: PAIN-PACU ORDER X 4 DOSES ONLY Fentanyl (Sublimaze Injection -) 25 mcg IVPUSH [id number] PRN PRN Reason: PAIN-PACU ORDER X 4 DOSES ONLY Meropenem 1 gm/ Dextrose 100 mls @ 200 mls/hr IVPB Q8H-IV [facility] Last Admin: 05/15/20 03:23 Dose: 200 mls/hr Documented by: Daptomycin 500 mg/ Sodium (Chloride) 50 mls @ 50 mls/hr IVPB Q24H [facility]; Protocol Last Admin: 05/14/20 16:58 Dose: 50 mls/hr Documented by: Mirtazapine (Remeron -) 7.5 mg PO HS [facility] Last Admin: 05/14/20 22:13 Dose: 7.5 mg Documented by: Multivitamins/Minerals (Certavite-Antioxidant Liquid) 15 ml PO DAILY [facility] Last Admin: 05/14/20 10:02 Dose: 15 ml Documented by: Ondansetron HCl (Zofran Injection) 4 mg IVPUSH Q6H PRN PRN Reason: NAUSEA AND/OR VOMITING Pantoprazole Sodium (Protonix Packets For Oral Suspension -) 40 mg PO ACBK [facility] Last Admin: 05/15/20 06:35 Dose: 40 mg Documented by: Polyethylene Glycol (Miralax (For Daily Use) -) 17 gm PO BID PRN PRN Reason: CONSTIPATION Last Admin: 05/04/20 09:35 Dose: 17 gm Documented by: Senna/Docusate Sodium (Pericolace -) 1 tablet PO BID PRN PRN Reason: CONSTIPATION Last Admin: 05/10/20 09:53 Dose: 1 tablet Documented by: - Objective Vital Signs: Vital Signs Temperature 98.5 F 05/15/20 07:45 Pulse Rate 78 05/15/20 07:45 Respiratory Rate 20 05/15/20 07:45 Blood Pressure 136/57 L 05/15/20 07:45 O2 Sat by Pulse Oximetry (%) 99 05/15/20 07:45 Constitutional: Yes: No Distress, Calm Cardiovascular: Yes: S1, S2 Respiratory: Yes: Regular, CTA Bilaterally Gastrointestinal: Yes: Normal Bowel Sounds, Soft Musculoskeletal: Yes: WNL Extremities: Yes: Other Neurological: Yes: Alert Psychiatric: Yes: Alert Labs: INR, PTT INR 1.25 (0.83-1.09) H 04/25/20 06:00 Assessment/Plan Problem List - Problems (1) Severe sepsis Code(s): A41.9 - SEPSIS, UNSPECIFIED ORGANISM; R65.20 - SEVERE SEPSIS WITHOUT SEPTIC SHOCK (2) Bacteremia due to Gram-negative bacteria Code(s): R78.81 - BACTEREMIA (3) Status post spinal surgery Code(s): Z98.890 - OTHER SPECIFIED POSTPROCEDURAL STATES (4) Toxic metabolic encephalopathy Code(s): G92 - TOXIC ENCEPHALOPATHY (5) Urinary tract infection Code(s): N39.0 - URINARY TRACT INFECTION, SITE NOT SPECIFIED Qualifiers: Urinary tract infection type: site unspecified Hematuria presence: without hematuria Qualified Code(s): N39.0 - Urinary tract infection, site not specified Assessment/Plan 79 y.o. female with PMH of dementia, HTN, depression, lumbar stenosis s/p laminectomy, neuropathy who underwent removal of L3-L5 hardware, L3-S1 laminectomies, L5-S1 PLIF/L3-S1 PSIF on 04/09/20 and noted to develop fever up to 101.8F and increase in wbc to 16.8K along with lethargy and mild hypotension Severe Sepsis Gram negative/E. coli Bacteremia Pseudomonas UTI s/p lumbar wound I+D, s/p washout/wound vac placement plan ct current mgmt abx wound care rest as per the team await for repeat cx from washout
[2020-05-15 08:33] LABS: ALBUMIN 1.9 g/dl (3.4-5.0); BILIRUBIN,TOTAL 0.5 mg/dL (0.2-1); BLOOD UREA NITROGEN 30.2 mg/dL (7-18); CALCIUM 9.5 mg/dL (8.5-10.1); CREATININE 0.6 mg/dL (0.55-1.3); MAGNESIUM 2.1 mg/dL (1.8-2.4); POTASSIUM 4.3 mmol/L (3.5-5.1)
--- NOTE | 2020-05-15 09:12 | PN ---
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, Physician Chief Complaint: Patient remained at baseline History of Present Illness: 79-year-old female history of hypertension, dementia depression spinal stenosis underwent L3 5 spinal surgery 8 years ago that got infected, admitted at [facility] underwent hardware removal of L3-L5 hardware, including L4-L5 intervertebral cage, L3-S1 laminectomy, L5-S1 PLIF, L3-S1 posterior instrumented spinal fusion. On April 09, 2020 at [facility] subsequently had a prolonged complicated hospital course developed Pseudomonas UTI, E. coli sepsis and VRE and E. coli in the wound, currently on daptomycin and meropenem as per ID recommendation, patient remained afebrile, considering deconditioning and poor nutrition evaluated by speech and swallow recommended PEG placement but family refused, currently on pured diet, cleared by orthopedic to discharge to subacute rehab. - Current Medication List Current Medications: Active Medications Acetaminophen (Tylenol -) 650 mg PO Q6H PRN PRN Reason: Fever Last Admin: 05/14/20 22:13 Dose: 650 mg Documented by: Amino Acids (Prosource No Carb Liquid Pkt) 30 ml PO TID [facility] Last Admin: 05/15/20 06:35 Dose: 30 ml Documented by: Amlodipine Besylate (Norvasc -) 5 mg PO DAILY [facility] Last Admin: 05/14/20 10:02 Dose: 5 mg Documented by: Ascorbic Acid (Vitamin C -) 500 mg PO BID [facility] Last Admin: 05/14/20 22:13 Dose: 500 mg Documented by: Citalopram Hydrobromide (Celexa -) 20 mg PO HS [facility] Last Admin: 05/14/20 22:13 Dose: 20 mg Documented by: Collagenase (Santyl -) 1 applic TP DAILY [facility]; Protocol Last Admin: 05/14/20 10:03 Dose: 1 applic Documented by: Docusate Sodium (Colace -) 100 mg PO TID [facility] Last Admin: 05/15/20 06:35 Dose: 100 mg Documented by: Fentanyl (Sublimaze Injection -) 25 mcg IVPUSH [id number] PRN PRN Reason: PAIN-PACU ORDER X 4 DOSES ONLY Fentanyl (Sublimaze Injection -) 25 mcg IVPUSH [id number] PRN PRN Reason: PAIN-PACU ORDER X 4 DOSES ONLY Meropenem 1 gm/ Dextrose 100 mls @ 200 mls/hr IVPB Q8H-IV [facility] Last Admin: 05/15/20 03:23 Dose: 200 mls/hr Documented by: Daptomycin 500 mg/ Sodium (Chloride) 50 mls @ 50 mls/hr IVPB Q24H [facility]; Protocol Last Admin: 05/14/20 16:58 Dose: 50 mls/hr Documented by: Mirtazapine (Remeron -) 7.5 mg PO HS [facility] Last Admin: 05/14/20 22:13 Dose: 7.5 mg Documented by: Multivitamins/Minerals (Certavite-Antioxidant Liquid) 15 ml PO DAILY [facility] Last Admin: 05/14/20 10:02 Dose: 15 ml Documented by: Ondansetron HCl (Zofran Injection) 4 mg IVPUSH Q6H PRN PRN Reason: NAUSEA AND/OR VOMITING Pantoprazole Sodium (Protonix Packets For Oral Suspension -) 40 mg PO ACBK [facility] Last Admin: 05/15/20 06:35 Dose: 40 mg Documented by: Polyethylene Glycol (Miralax (For Daily Use) -) 17 gm PO BID PRN PRN Reason: CONSTIPATION Last Admin: 05/04/20 09:35 Dose: 17 gm Documented by: Senna/Docusate Sodium (Pericolace -) 1 tablet PO BID PRN PRN Reason: CONSTIPATION Last Admin: 05/10/20 09:53 Dose: 1 tablet Documented by: - Objective Vital Signs: Vital Signs Temperature 98.5 F 05/15/20 07:45 Pulse Rate 78 05/15/20 07:45 Respiratory Rate 20 05/15/20 07:45 Blood Pressure 136/57 L 05/15/20 07:45 O2 Sat by Pulse Oximetry (%) 99 05/15/20 07:45 General: Elderly woman, comfortable, not in distress HEENT mucous membranes moist, no anemia, no jaundice, PERRLA, no nystagmus Neck: No JVD, supple, no bruit, thyroid palpably normal, normal carotid pu lsations. Chest: Nontender, clear to auscultation bilaterally/bilateral wheezing/bilateral basal rales. CVS: S1-S2 regular/irregular no murmur/gallop/rub Abdomen: Nondistended, soft, bowel sounds present. 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 coli and E. coli bacteremia Code(s): A41.9 - SEPSIS, UNSPECIFIED ORGANISM; R65.20 - SEVERE SEPSIS WITHOUT SEPTIC SHOCK (3) Hypertension Assessment/Plan: Well-controlled continue current medication Code(s): I10 - ESSENTIAL (PRIMARY) HYPERTENSION (4) Depression Assessment/Plan: At present stable continue current management Code(s): F32.9 - MAJOR DEPRESSIVE DISORDER, SINGLE EPISODE, UNSPECIFIED (5) Status post spinal surgery Assessment/Plan: Infected continue daptomycin and meropenem Code(s): Z98.890 - OTHER SPECIFIED POSTPROCEDURAL STATES (6) Failure to thrive Assessment/Plan: Patient has poor p.o. intake, with low albumin, speech and swallow evaluated recommended PEG placement but patient refused, currently on pured diet continue nutrition consult. Calorie count. Code(s): UKF0622 -
[2020-05-15] MEDS ORDERED: PT OWN MED DRAWER 7, Y5N ONE ×2 (09:46→15:36)
[2020-05-15] MEDS: MULTIVIT-MINERALS ORAL LIQUID PO SCH (09:48)
[2020-05-15] MEDS: amLODIPine BESYLATE 5 MG TABLET (FP) PO SCH (09:48)
[2020-05-15] MEDS: ASCORBIC ACID 500 MG TABLET (FP) PO SCH ×2 (09:48→21:34)
[2020-05-15] MEDS: COLLAGENASE CLOSTRIDIUM HIST. 30 GRAMS TUBE TP SCH (09:49)
[2020-05-15] MEDS: DAPTOMYCIN 500 MG in SODIUM CHLORIDE 50 ML IVPB SCH (15:39)
--- NOTE | 2020-05-15 21:18 | PN ---
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 (short form) - Note 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: 79F s/p I&D lumbar spine w/placement of wound vac POD #4. New onset diffuse left-sided hemiplegia. Pain well controlled. Pt. denies overnight history of headaches, chest pain, shortness of breath, nausea, vomiting, chills, & sweats. (+) [place]; (+) [place]; (+) BM. Pt. lying in bed at time of assessment. All labs, vitals reviewed. PE: Pt. conversational, co-operative, alert, and NAD. L-Spine: Wound vac dressing intact & in place w/negative pressure therapy intact. R LE Motor & Sensory: Fully intact, at baseline. Diffuse Left-Sided Hemiplegia. 79F s/p I&D lumbar spine w/placement of wound vac POD #4. -Obtain head CT scan VIRI. -Obtain neurology consultation: Dr. Sheth or any available neurologist. -NPO at midnight. -Pre-op for tomorrow for repeat I&D L-spine w/woundvac exchange; in case patient is stable and medically cleared. -f/u lumbar spine woundcare evaluation by [facility] wound care team (Drs. Hernandez, Bo). -Pain control. -DVT PPx: -Mechanical only: LITA's, SCD's. -Chemical: None. -Incentive spirometry q15 min. -[place] care. -PT/OT/Rehab, OOBTC. -No bending, lifting (>5 lbs), or twisting for 9-12 months. -Care per medical hospitalist, wound care, ID, urology, GI, & neurology teams. -Will follow. Seth Cuenca MD (Orthopaedic Surgery).
[2020-05-15] MEDS: CITALOPRAM HYDROBROMIDE 20 MG TABLET PO SCH (21:34)
[2020-05-15] MEDS: MIRTAZAPINE 15 MG TABLET (FP) PO SCH (21:34)
[2020-05-16] MEDS ORDERED: MEROPENEM 1 GM VIAL (RESTRICTED TO ID) IVPB ONE ×3 (01:18→18:23)
[2020-05-16] MEDS ORDERED: DEXTROSE 5%-WATER 100 ML IVPB ONE ×3 (01:18→18:23)
[2020-05-16] MEDS: MEROPENEM 1 GM in DEXTROSE 5%-WATER 100 ML IVPB SCH ×3 (01:22→18:26)
--- NOTE | 2020-05-16 02:48 | PN ---
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 (short form) - Note 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: Day RN noted L arm weakness at 17:[address]. [address]. Cuenca evaluated and noted diffuse L sided hemiplegia: recommended CT head. Pt with documented history of L sided weakness for the last 2 months, per patient. CT head showing no acute changes. Will not consult neurology at this time but will consider in the future as appropriate.
[2020-05-16] MEDS: AMINO ACIDS/PROTEIN HYDROLYS 30 ML LIQUID.PKT PO SCH ×3 (05:40→23:06)
[2020-05-16] MEDS: DOCUSATE SODIUM 100 MG CAPSULE (FP) PO SCH ×3 (05:40→23:06)
[2020-05-16] MEDS: PANTOPRAZOLE SOD 40 MG SUSPENSION PACKET PO SCH (06:23)
[2020-05-16 07:55] LABS: BASO % 0.5 % (0-2.0); EOS % 4.1 % (0-4.5); LYMPH % 10.5 % (8-40); MCH 26.7 pg (25.7-33.7); MEAN CELL VOLUME 83.2 fl (80-96); MEAN PLT VOLUME 8.5 fl (7.5-11.1); NEUT % 77.9 % (42.8-82.8); PLATELET COUNT 531 K/MM3 (134-434); RBC 3.36 M/mm3 (3.60-5.2); RDW 15.7 % (11.6-15.6); WHITE BLOOD COUNT 13.1 K/mm3 (4.0-10.0)
[2020-05-16 08:30] LABS: BILIRUBIN,TOTAL 0.4 mg/dL (0.2-1); BLOOD UREA NITROGEN 26.4 mg/dL (7-18); CALCIUM 9.9 mg/dL (8.5-10.1); CREATININE 0.6 mg/dL (0.55-1.3); MAGNESIUM 2.1 mg/dL (1.8-2.4); POTASSIUM 4.3 mmol/L (3.5-5.1)
--- NOTE | 2020-05-16 09:02 | PN ---
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, Physician History of Present Illness: stable no new issues repeat cx noted - Current Medication List Current Medications: Active Medications Acetaminophen (Tylenol -) 650 mg PO Q6H PRN PRN Reason: Fever Last Admin: 05/14/20 22:13 Dose: 650 mg Documented by: Amino Acids (Prosource No Carb Liquid Pkt) 30 ml PO TID [facility] Last Admin: 05/16/20 05:40 Dose: Not Given Documented by: Amlodipine Besylate (Norvasc -) 5 mg PO DAILY [facility] Last Admin: 05/15/20 09:48 Dose: 5 mg Documented by: Ascorbic Acid (Vitamin C -) 500 mg PO BID [facility] Last Admin: 05/15/20 21:34 Dose: 500 mg Documented by: Citalopram Hydrobromide (Celexa -) 20 mg PO HS [facility] Last Admin: 05/15/20 21:34 Dose: 20 mg Documented by: Collagenase (Santyl -) 1 applic TP DAILY [facility]; Protocol Last Admin: 05/15/20 09:49 Dose: 1 applic Documented by: Docusate Sodium (Colace -) 100 mg PO TID [facility] Last Admin: 05/16/20 05:40 Dose: Not Given Documented by: Fentanyl (Sublimaze Injection -) 25 mcg IVPUSH [id number] PRN PRN Reason: PAIN-PACU ORDER X 4 DOSES ONLY Fentanyl (Sublimaze Injection -) 25 mcg IVPUSH [id number] PRN PRN Reason: PAIN-PACU ORDER X 4 DOSES ONLY Meropenem 1 gm/ Dextrose 100 mls @ 200 mls/hr IVPB Q8H-IV [facility] Last Admin: 05/16/20 01:22 Dose: 200 mls/hr Documented by: Daptomycin 500 mg/ Sodium (Chloride) 50 mls @ 50 mls/hr IVPB Q24H [facility]; Protocol Last Admin: 05/15/20 15:39 Dose: 50 mls/hr Documented by: Mirtazapine (Remeron -) 7.5 mg PO [facility] Last Admin: 05/15/20 21:34 Dose: 7.5 mg Documented by: Multivitamins/Minerals (Certavite-Antioxidant Liquid) 15 ml PO DAILY [facility] Last Admin: 05/15/20 09:48 Dose: 15 ml Documented by: Ondansetron HCl (Zofran Injection) 4 mg IVPUSH Q6H PRN PRN Reason: NAUSEA AND/OR VOMITING Pantoprazole Sodium (Protonix Packets For Oral Suspension -) 40 mg PO ACBK [facility] Last Admin: 05/16/20 06:23 Dose: Not Given Documented by: Polyethylene Glycol (Miralax (For Daily Use) -) 17 gm PO BID PRN PRN Reason: CONSTIPATION Last Admin: 05/04/20 09:35 Dose: 17 gm Documented by: Senna/Docusate Sodium (Pericolace -) 1 tablet PO BID PRN PRN Reason: CONSTIPATION Last Admin: 05/10/20 09:53 Dose: 1 tablet Documented by: - Objective Vital Signs: Vital Signs Temperature 98.0 F 05/16/20 06:00 Pulse Rate 86 05/16/20 06:00 Respiratory Rate 18 05/16/20 06:00 Blood Pressure 160/70 05/16/20 06:00 O2 Sat by Pulse Oximetry (%) 95 05/16/20 06:00 Constitutional: Yes: No Distress, Calm Cardiovascular: Yes: S1, S2 Respiratory: Yes: Regular, CTA Bilaterally Musculoskeletal: Yes: Other Extremities: Yes: WNL Wound/Incision: Yes: Other (wound vac) Neurological: Yes: Alert Labs: CBC, BMP 05/16/20 06:15 05/16/20 06:15 INR, PTT INR 1.25 (0.83-1.09) H 04/25/20 06:00 Assessment/Plan Problem List - Problems (1) Severe sepsis Code(s): A41.9 - SEPSIS, UNSPECIFIED ORGANISM; R65.20 - SEVERE SEPSIS WITHOUT SEPTIC SHOCK (2) Bacteremia due to Gram-negative bacteria Code(s): R78.81 - BACTEREMIA (3) Status post spinal surgery Code(s): Z98.890 - OTHER SPECIFIED POSTPROCEDURAL STATES (4) Toxic metabolic encephalopathy Code(s): G92 - TOXIC ENCEPHALOPATHY (5) Urinary tract infection Code(s): N39.0 - URINARY TRACT INFECTION, SITE NOT SPECIFIED Qualifiers: Urinary tract infection type: site unspecified Hematuria presence: without hematuria Qualified Code(s): N39.0 - Urinary tract infection, site not specified Assessment/Plan 79 y.o. female with PMH of dementia, HTN, depression, lumbar stenosis s/p laminectomy, neuropathy who underwent removal of L3-L5 hardware, L3-S1 laminectomies, L5-S1 PLIF/L3-S1 PSIF on 04/09/20 and noted to develop fever up to 101.8F and increase in wbc to 16.8K along with lethargy and mild hypotension Severe Sepsis Gram negative/E. coli Bacteremia Pseudomonas UTI s/p lumbar wound I+D, s/p washout/wound vac placement plan ct current mgmt abx wound care rest as per the team complete the abx course
--- NOTE | 2020-05-16 09:23 | PN ---
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, Physician Chief Complaint: Patient remained at baseline History of Present Illness: 79-year-old female history of hypertension, dementia depression spinal stenosis underwent L3 5 spinal surgery 8 years ago that got infected, admitted at [facility] underwent hardware removal of L3-L5 hardware, including L4-L5 intervertebral cage, L3-S1 laminectomy, L5-S1 PLIF, L3-S1 posterior instrumented spinal fusion. On April 09, 2020 at [facility] subsequently had a prolonged complicated hospital course developed Pseudomonas UTI, E. coli sepsis and VRE and E. coli in the wound, currently on daptomycin and meropenem as per ID recommendation, patient remained afebrile, considering deconditioning and poor nutrition evaluated by speech and swallow recommended PEG placement but family refused, currently on pured diet, cleared by orthopedic to discharge to subacute rehab. - Current Medication List Current Medications: Active Medications Acetaminophen (Tylenol -) 650 mg PO Q6H PRN PRN Reason: Fever Last Admin: 05/14/20 22:13 Dose: 650 mg Documented by: Amino Acids (Prosource No Carb Liquid Pkt) 30 ml PO TID [facility] Last Admin: 05/16/20 05:40 Dose: Not Given Documented by: Amlodipine Besylate (Norvasc -) 5 mg PO DAILY [facility] Last Admin: 05/15/20 09:48 Dose: 5 mg Documented by: Ascorbic Acid (Vitamin C -) 500 mg PO BID [facility] Last Admin: 05/15/20 21:34 Dose: 500 mg Documented by: Citalopram Hydrobromide (Celexa -) 20 mg PO HS [facility] Last Admin: 05/15/20 21:34 Dose: 20 mg Documented by: Collagenase (Santyl -) 1 applic TP DAILY [facility]; Protocol Last Admin: 05/15/20 09:49 Dose: 1 applic Documented by: Docusate Sodium (Colace -) 100 mg PO TID [facility] Last Admin: 05/16/20 05:40 Dose: Not Given Documented by: Fentanyl (Sublimaze Injection -) 25 mcg IVPUSH [id number] PRN PRN Reason: PAIN-PACU ORDER X 4 DOSES ONLY Fentanyl (Sublimaze Injection -) 25 mcg IVPUSH [id number] PRN PRN Reason: PAIN-PACU ORDER X 4 DOSES ONLY Meropenem 1 gm/ Dextrose 100 mls @ 200 mls/hr IVPB Q8H-IV [facility] Last Admin: 05/16/20 01:22 Dose: 200 mls/hr Documented by: Daptomycin 500 mg/ Sodium (Chloride) 50 mls @ 50 mls/hr IVPB Q24H [facility]; Protocol Last Admin: 05/15/20 15:39 Dose: 50 mls/hr Documented by: Mirtazapine (Remeron -) 7.5 mg PO HS [facility] Last Admin: 05/15/20 21:34 Dose: 7.5 mg Documented by: Multivitamins/Minerals (Certavite-Antioxidant Liquid) 15 ml PO DAILY [facility] Last Admin: 05/15/20 09:48 Dose: 15 ml Documented by: Ondansetron HCl (Zofran Injection) 4 mg IVPUSH Q6H PRN PRN Reason: NAUSEA AND/OR VOMITING Pantoprazole Sodium (Protonix Packets For Oral Suspension -) 40 mg PO ACBK [facility] Last Admin: 05/16/20 06:23 Dose: Not Given Documented by: Polyethylene Glycol (Miralax (For Daily Use) -) 17 gm PO BID PRN PRN Reason: CONSTIPATION Last Admin: 05/04/20 09:35 Dose: 17 gm Documented by: Senna/Docusate Sodium (Pericolace -) 1 tablet PO BID PRN PRN Reason: CONSTIPATION Last Admin: 05/10/20 09:53 Dose: 1 tablet Documented by: - Objective Vital Signs: Vital Signs Temperature 98.0 F 05/16/20 06:00 Pulse Rate 86 05/16/20 06:00 Respiratory Rate 18 05/16/20 06:00 Blood Pressure 160/70 05/16/20 06:00 O2 Sat by Pulse Oximetry (%) 95 05/16/20 06:00 General: Elderly woman, comfortable, not in distress HEENT mucous membranes moist, no anemia, no jaundice, PERRLA, no nystagmus Neck: No JVD, supple, no bruit, thyroid palpably normal, normal carotid pulsations. Chest: Nontender, clear to auscultation bilaterally/bilateral wheezing/bilateral basal rales. CVS: S1-S2 regular/irregular no murmur/gallop/rub Abdomen: Nondistended, soft, bowel sounds present. Extremities: Scaral and Rt Heel Decubitus No edema., No Calf tenderness, pulses present MEDIA SERVICES SPECIALIST: Alert , Left sided weakness at base line . Labs: CBC, BMP 05/16/20 06:15 05/16/20 06:15 INR, PTT INR 1.25 (0.83-1.09) H 04/25/20 06:00 - ....Imaging Cat Scan: Report Reviewed (CT head: No acute changes) Problem List - Problems (1) Bacteremia due to Gram-negative bacteria Assessment/Plan: On meropenem and daptomycin duration of antibiotic as per ID Code(s): R78.81 - BACTEREMIA (2) Severe sepsis Assessment/Plan: Grew multiple pathogens on daptomycin and meropenem repeat cultures are negative patient has UTI with E. coli and E. coli bacteremia Code(s): A41.9 - SEPSIS, UNSPECIFIED ORGANISM; R65.20 - SEVERE SEPSIS WITHOUT SEPTIC SHOCK (3) Hypertension Assessment/Plan: Well-controlled continue current medication Code(s): I10 - ESSENTIAL (PRIMARY) HYPERTENSION (4) Depression Assessment/Plan: At present stable continue current management Code(s): F32.9 - MAJOR DEPRESSIVE DISORDER, SINGLE EPISODE, UNSPECIFIED (5) Status post spinal surgery Assessment/Plan: Infected continue daptomycin and meropenem Code(s): Z98.890 - OTHER SPECIFIED POSTPROCEDURAL STATES (6) Failure to thrive Assessment/Plan: Patient has poor p.o. intake, with low albumin, speech and swallow evaluated recommended PEG placement but patient refused, currently on pured diet continue nutrition consult. Calorie count. Code(s): [id number] - (7) Left-sided weakness Assessment/Plan: Yesterday orthopedic consult notes left-sided weakness that has been observed by nursing staff since hospitalization, CT head is normal, we will follow-up neurology recommendations Problems reviewed: Yes Code(s): R53.1 - WEAKNESS
[2020-05-16] MEDS ORDERED: PT OWN MED DRAWER 7, Y5N ONE ×4 (10:16→16:05)
[2020-05-16] MEDS: amLODIPine BESYLATE 5 MG TABLET (FP) PO SCH (10:29)
[2020-05-16] MEDS: ASCORBIC ACID 500 MG TABLET (FP) PO SCH ×2 (10:29→23:06)
--- NOTE | 2020-05-16 14:31 | CONSULT ---
Consult - text type - Consultation Consultation Note: Neurology CC: LUE weakness History of Present Illness: 79-year-old female history of hypertension, dementia depression spinal stenosis underwent L3 5 spinal surgery 8 years ago that got infected, admitted at [facility] underwent hardware removal of L3-L5 hardware, including L4-L5 intervertebral cage, L3-S1 laminectomy, L5-S1 PLIF, L3-S1 posterior instrumented spinal fusion. On April 09, 2020 at [facility] subsequently had a prolonged complicated hospital course developed Pseudomonas UTI, E. coli sepsis and VRE and E. coli in the wound, Abx as per ID recommendation, patient remained afebrile, considering deconditioning and poor nutrition evaluated by speech and swallow recommended PEG placement but family refused, currently on pured diet, cleared by orthopedic to discharge to subacute rehab. I was consulted to evaluate for left upper extremity weakness that the patient reportedly experience. She states that it is new, noncontrast head CT was completed and showed prior left subinsular and occipital infarcts, no acute changes. I discussed with the patient obtaining MRI of the brain to confirm no new acute lesions and she was in agreement. - Past Medical History SENIOR COMPLIANCE ANALYST: Yes: Dementia, Peripheral Neuropathy (lumbar radiculopathy, ? cauda equina syndrome) Cardio/Vascular: Yes: HTN Heme/Onc: Yes: Anemia Psych: Yes: Depression Musculoskeletal: Yes: Other (Spinal stenosis) Endocrine: Yes: Other (Neuropathy) - Past Surgical History Past Surgical History: Yes: Laminectomy (2013 lumbar laminectomies) - Alcohol/Substance Use Hx Alcohol Use: No - Smoking History Smoking history: Former smoker Have you smoked in the past 12 months: Yes If you are a former smoker, when did you quit?: 5months ago - Social History Usual Living Arrangement: Other (home health aid) Place of : [facility] Family: HTN Active Medications Acetaminophen (Tylenol -) 650 mg PO Q6H PRN PRN Reason: Fever Last Admin: 05/14/20 22:13 Dose: 650 mg Documented by: Amino Acids (Prosource No Carb Liquid Pkt) 30 ml PO TID [facility] Last Admin: 05/16/20 05:40 Dose: Not Given Documented by: Amlodipine Besylate (Norvasc -) 5 mg PO DAILY [facility] Last Admin: 05/16/20 10:29 Dose: 5 mg Documented by: Ascorbic Acid (Vitamin C -) 500 mg PO BID [facility] Last Admin: 05/16/20 10:29 Dose: 500 mg Documented by: Citalopram Hydrobromide (Celexa -) 20 mg PO HS [facility] Last Admin: 05/15/20 21:34 Dose: 20 mg Documented by: Collagenase (Santyl -) 1 applic TP DAILY [facility]; Protocol Last Admin: 05/15/20 09:49 Dose: 1 applic Documented by: Docusate Sodium (Colace -) 100 mg PO TID [facility] Last Admin: 05/16/20 05:40 Dose: Not Given Documented by: Fentanyl (Sublimaze Injection -) 25 mcg IVPUSH [id number] PRN PRN Reason: PAIN-PACU ORDER X 4 DOSES ONLY Fentanyl (Sublimaze Injection -) 25 mcg IVPUSH [id number] PRN PRN Reason: PAIN-PACU ORDER X 4 DOSES ONLY Meropenem 1 gm/ Dextrose 100 mls @ 200 mls/hr IVPB Q8H-IV [facility] Last Admin: 05/16/20 10:19 Dose: 200 mls/hr Documented by: Daptomycin 500 mg/ Sodium (Chloride) 50 mls @ 50 mls/hr IVPB Q24H [facility]; Protocol Last Admin: 05/15/20 15:39 Dose: 50 mls/hr Documented by: Mirtazapine (Remeron -) 7.5 mg PO [facility] Last Admin: 05/15/20 21:34 Dose: 7.5 mg Documented by: Multivitamins/Minerals (Certavite-Antioxidant Liquid) 15 ml PO DAILY [facility] Last Admin: 05/15/20 09:48 Dose: 15 ml Documented by: Ondansetron HCl (Zofran Injection) 4 mg IVPUSH Q6H PRN PRN Reason: NAUSEA AND/OR VOMITING Pantoprazole Sodium (Protonix Packets For Oral Suspension -) 40 mg PO ACBK [facility] Last Admin: 05/16/20 06:23 Dose: Not Given Documented by: Polyethylene Glycol (Miralax (For Daily Use) -) 17 gm PO BID PRN PRN Reason: CONSTIPATION Last Admin: 05/04/20 09:35 Dose: 17 gm Documented by: Senna/Docusate Sodium (Pericolace -) 1 tablet PO BID PRN PRN Reason: CONSTIPATION Last Admin: 05/10/20 09:53 Dose: 1 tablet Documented by: - Objective Vital Signs Period Temp Pulse Resp BP Sys/Lepe Pulse Ox Last 24 Hr 98.0 F-98.4 F 67-86 18-22 135-160/65-80 95-97 General: Elderly woman, comfortable, not in distress HEENT mucous membranes moist, no anemia, no jaundice, PERRLA, no nystagmus Neck: No JVD, supple, no bruit, thyroid palpably normal, normal carotid pulsations. Chest: Nontender, clear to auscultation bilaterally/bilateral wheezing/bilateral basal rales. CVS: S1-S2 regular/irregular no murmur/gallop/rub Abdomen: Nondistended, soft, bowel sounds present. Extremities: Scaral and Rt Heel Decubitus No edema., No Calf tenderness, pulses present SENIOR COMPLIANCE ANALYST: Alert , awake, RUE 5-/5, LUE 3/5, LLE 3/5, RLE 4+/5, sensory intact, gait deferred CBCD WBC 13.1 K/mm3 (4.0-10.0) H 05/16/20 06:15 RBC 3.36 M/mm3 (3.60-5.2) L 05/16/20 06:15 Hgb 9.0 GM/dL (10.7-15.3) L 05/16/20 06:15 Hct 28.0 % (32.4-45.2) L 05/16/20 06:15 MCV 83.2 fl (80-96) 05/16/20 06:15 MCHC 32.0 g/dl (32.0-36.0) 05/16/20 06:15 RDW 15.7 % (11.6-15.6) H 05/16/20 06:15 Plt Count 531 K/MM3 (134-434) H 05/16/20 06:15 MPV 8.5 fl (7.5-11.1) 05/16/20 06:15 CMP Sodium 143 mmol/L (136-145) 05/16/20 06:15 Potassium 4.3 mmol/L (3.5-5.1) 05/16/20 06:15 Chloride 106 mmol/L (98-107) 05/16/20 06:15 Carbon Dioxide 28 mmol/L (21-32) 05/16/20 06:15 Anion Gap 9 MMOL/L (8-16) 05/16/20 06:15 BUN 26.4 mg/dL (7-18) H 05/16/20 06:15 Creatinine 0.6 mg/dL (0.55-1.3) 05/16/20 06:15 Calcium 9.9 mg/dL (8.5-10.1) 05/16/20 06:15 Total Bilirubin 0.4 mg/dL (0.2-1) 05/16/20 06:15 AST 60 U/L (15-37) H 05/16/20 06:15 ALT 61 U/L (13-61) 05/16/20 06:15 Alkaline Phosphatase 147 U/L (45-117) H 05/16/20 06:15 Total Protein 7.0 g/dl (6.4-8.2) 05/16/20 06:15 Albumin 2.0 g/dl (3.4-5.0) L 05/16/20 06:15 - ....Imaging Cat Scan: Report Reviewed (CT head: No acute changes) Plan: 79-year-old female history of hypertension, dementia depression spinal stenosis underwent L3 5 spinal surgery 8 years ago that got infected, admitted at [facility] underwent hardware removal of L3-L5 hardware, including L4-L5 intervertebral cage, L3-S1 laminectomy, L5-S1 PLIF, L3-S1 posterior instrumented spinal fusion. On April 09, 2020 at [facility] subsequently had a prolonged complicated hospital course developed Pseudomonas UTI, E. coli sepsis and VRE and E. coli in the wound, Abx as per ID recommendation, patient remained afebrile, considering deconditioning and poor nutrition evaluated by speech and swallow recommended PEG placement but family refused, currently on pured diet, cleared by orthopedic to discharge to subacute rehab. I was consulted to evaluate for left upper extremity weakness that the patient reportedly experience. She states that it is new, noncontrast head CT was completed and showed prior left subinsular and occipital infarcts, no acute changes. I discussed with the patient obtaining MRI of the brain to confirm no new acute lesions and she was in agreement. Not currently on antiplatelet medication, consider aspirin 81 mg daily if no contraindication. monitor blood pressure, maintain normotensive range. Unclear if this weakness isbaseline as being documented or new deficits. Further stroke workup will be considered if MRI positive. Continue management and optimization of underlying urinary tract infection. Postoperative follow-up by orthopedist. Physical therapy as tolerated,rehabilitation placement being planned.
[2020-05-16] MEDS: MULTIVIT-MINERALS ORAL LIQUID PO SCH (15:16)
[2020-05-16] MEDS: COLLAGENASE CLOSTRIDIUM HIST. 30 GRAMS TUBE TP SCH (15:17)
[2020-05-16] MEDS ORDERED: ASPIRIN 81 MG CHEWABLE TABLETS PO SCH (15:45)
[2020-05-16] MEDS: DAPTOMYCIN 500 MG in SODIUM CHLORIDE 50 ML IVPB SCH (16:09)
[2020-05-16] MEDS ORDERED: SENNOSIDES/DOCUSATE COMBO (SENNA PLUS) TABLET (UD) PO PRN (20:58)
[2020-05-16] MEDS ORDERED: ONDANSETRON 4 MG/2 ML VIAL IVPUSH PRN (20:58)
[2020-05-16] MEDS ORDERED: POLYETHYLENE GLYCOL 3350 119 GM BTL PO PRN (20:58)
[2020-05-16] MEDS ORDERED: ATORVASTATIN CA 20 MG TABLET (FP) PO SCH ×2 (22:00)
[2020-05-16] MEDS: CITALOPRAM HYDROBROMIDE 20 MG TABLET PO SCH (23:06)
[2020-05-16] MEDS: MIRTAZAPINE 15 MG TABLET (FP) PO SCH (23:06)
[2020-05-17] MEDS: DEXTROSE 5%-0.45% SALINE 1,000 ML IV SCH ×2 (00:11→23:30)
[2020-05-17] MEDS ORDERED: MEROPENEM 1 GM VIAL (RESTRICTED TO ID) IVPB ONE ×3 (01:32→16:12)
[2020-05-17] MEDS ORDERED: DEXTROSE 5%-WATER 100 ML IVPB ONE ×3 (01:32→16:12)
[2020-05-17] MEDS: MEROPENEM 1 GM in DEXTROSE 5%-WATER 100 ML IVPB SCH ×3 (01:37→17:53)
[2020-05-17] MEDS: AMINO ACIDS/PROTEIN HYDROLYS 30 ML LIQUID.PKT PO SCH ×3 (06:30→23:12)
[2020-05-17] MEDS: PANTOPRAZOLE SOD 40 MG SUSPENSION PACKET PO SCH (06:30)
[2020-05-17] MEDS: DOCUSATE SODIUM 100 MG CAPSULE (FP) PO SCH ×3 (06:31→23:12)
[2020-05-17 07:30] LABS: BASO % 0.7 % (0-2.0); EOS % 3.7 % (0-4.5); HEMATOCRIT 29.8 % (32.4-45.2); HEMOGLOBIN 9.6 GM/dL (10.7-15.3); LYMPH % 9.9 % (8-40); MCH 26.8 pg (25.7-33.7); MCHC 32.2 g/dl (32.0-36.0); MEAN CELL VOLUME 83.3 fl (80-96); MEAN PLT VOLUME 8.2 fl (7.5-11.1); MONO % 7.5 % (3.8-10.2); NEUT % 78.2 % (42.8-82.8); PLATELET COUNT 543 K/MM3 (134-434); RBC 3.58 M/mm3 (3.60-5.2); RDW 15.5 % (11.6-15.6); WHITE BLOOD COUNT 11.5 K/mm3 (4.0-10.0)
--- NOTE | 2020-05-17 07:38 | PN ---
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, Physician Chief Complaint: Patient remained at baseline, yesterday MRI shows small post periventricular lacunar infarct , no over night event History of Present Illness: 79-year-old female history of hypertension, dementia depression spinal stenosis underwent L3 5 spinal surgery 8 years ago that got infected, admitted at [facility] underwent hardware removal of L3-L5 hardware, including L4-L5 int ervertebral cage, L3-S1 laminectomy, L5-S1 PLIF, L3-S1 posterior instrumented spinal fusion. On April 09, 2020 at [facility] subsequently had a prolonged complicated hospital course developed Pseudomonas UTI, E. coli sepsis and VRE and E. coli in the wound, currently on daptomycin and meropenem as per ID recommendation, patient remained afebrile, considering deconditioning and poor nutrition evaluated by speech and swallow recommended PEG placement but family refused, currently on pured diet, cleared by orthopedic to discharge to subacute rehab.Left UE weakness noted w/u shows small post periventricular infarct transfer to [facility] for stroke w/u . - Current Medication List Current Medications: Active Medications Acetaminophen (Tylenol -) 650 mg PO Q6H PRN PRN Reason: Fever Amino Acids (Prosource No Carb Liquid Pkt) 30 ml PO TID [facility] Last Admin: 05/17/20 06:30 Dose: 30 ml Documented by: Amlodipine Besylate (Norvasc -) 5 mg PO DAILY [facility] Ascorbic Acid (Vitamin C -) 500 mg PO BID [facility] Last Admin: 05/16/20 23:06 Dose: 500 mg Documented by: Aspirin (Asa -) 81 mg PO DAILY [facility] Atorvastatin Calcium (Lipitor -) 20 mg PO HS [facility] Citalopram Hydrobromide (Celexa -) 20 mg PO HS [facility] Last Admin: 05/16/20 23:06 Dose: 20 mg Documented by: Collagenase (Santyl -) 1 applic TP DAILY [facility]; Protocol Docusate Sodium (Colace -) 100 mg PO TID [facility] Last Admin: 05/17/20 06:31 Dose: Not Given Documented by: Fentanyl (Sublimaze Injection -) 25 mcg IVPUSH Q5M PRN PRN Reason: PAIN-PACU ORDER X 4 DOSES ONLY Fentanyl (Sublimaze Injection -) 25 mcg IVPUSH Q5M PRN PRN Reason: PAIN-PACU ORDER X 4 DOSES ONLY Daptomycin 500 mg/ Sodium (Chloride) 50 mls @ 50 mls/hr IVPB Q24H [facility]; Protocol Meropenem 1 gm/ Dextrose 100 mls @ 200 mls/hr IVPB Q8H-IV [facility] Last Admin: 05/17/20 01:37 Dose: 200 mls/hr Documented by: Dextrose/Sodium Chloride (D5-1/2ns -) 1,000 mls @ 30 mls/hr IV ASDIR [facility] Last Admin: 05/17/20 00:11 Dose: 30 mls/hr Documented by: Mirtazapine (Remeron -) 7.5 mg PO HS [facility] Last Admin: 05/16/20 23:06 Dose: 7.5 mg Documented by: Multivitamins/Minerals (Certavite-Antioxidant Liquid) 15 ml PO DAILY [facility] Ondansetron HCl (Zofran Injection) 4 mg IVPUSH Q6H PRN PRN Reason: NAUSEA AND/OR VOMITING Pantoprazole Sodium (Protonix Packets For Oral Suspension -) 40 mg PO ACBK [facility] Last Admin: 05/17/20 06:30 Dose: 40 mg Documented by: Polyethylene Glycol (Miralax (For Daily Use) -) 17 gm PO BID PRN PRN Reason: CONSTIPATION Senna/Docusate Sodium (Pericolace -) 1 tablet PO BID PRN PRN Reason: CONSTIPATION - Objective Vital Signs: Vital Signs Temperature 98.7 F 05/17/20 02:07 Pulse Rate 75 05/17/20 02:07 Respiratory Rate 20 05/17/20 02:07 Blood Pressure 150/75 05/17/20 02:07 O2 Sat by Pulse Oximetry (%) 100 05/17/20 02:07 General: Elderly woman, comfortable, not in distress HEENT mucous membranes moist, no anemia, no jaundice, PERRLA, no nystagmus Neck: No JVD, supple, no bruit, thyroid palpably normal, normal carotid pulsations. Chest: Nontender, clear to auscultation bilaterally CVS: S1-S2 regularno murmur/gallop/rub Abdomen: Nondistended, soft, bowel sounds present. 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, responding to verbal, Left sided weakness at base line no worsening Labs: CBC, BMP 05/17/20 06:50 05/17/20 06:50 - ....Imaging MRI: Report Reviewed (Brain : Multiple old infarcts and small post pe rventricular lacunar infarct.) Other: Report Reviewed (Echocardiogram: Normal vascular thickness ejection fraction) Problem List - Problems (1) Bacteremia due to Gram-negative bacteria Assessment/Plan: On meropenem and daptomycin duration of antibiotic as per ID Code(s): R78.81 - BACTEREMIA (2) Severe sepsis Assessment/Plan: Grew multiple pathogens on daptomycin and meropenem repeat cultures are negative patient has UTI with E. coli and E. coli bacteremia Code(s): A41.9 - SEPSIS, UNSPECIFIED ORGANISM; R65.20 - SEVERE SEPSIS WITHOUT SEPTIC SHOCK (3) Hypertension Assessment/Plan: Well-controlled continue current medication Code(s): I10 - ESSENTIAL (PRIMARY) HYPERTENSION (4) Depression Assessment/Plan: At present stable continue current management Code(s): F32.9 - MAJOR DEPRESSIVE DISORDER, SINGLE EPISODE, UNSPECIFIED (5) Status post spinal surgery Assessment/Plan: Infected continue daptomycin and meropenem, wound VAC at place hemorrhagic serosanguineous discharge Code(s): Z98.890 - OTHER SPECIFIED POSTPROCEDURAL STATES (6) Failure to thrive Assessment/Plan: Patient has poor p.o. intake, with low albumin, speech and swallow evaluated recommended PEG placement but patient refused, currently on pured diet continue nutrition consult. Calorie count. Code(s): NYI0339 - (7) Left-sided weakness Assessment/Plan: left sided weakness noted w/u shows(MRI) multiple chronic ischemic changes and small Rt Post Periventricular lacunar infarct, no event on Tele over night, cont ASA, Statin, neuro check, BP at optimum level, findings and plan discussed with the patient son. 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
[2020-05-17 08:11] LABS: BLOOD UREA NITROGEN 28.5 mg/dL (7-18); CREATININE 0.6 mg/dL (0.55-1.3); POTASSIUM 4.2 mmol/L (3.5-5.1)
[2020-05-17 09:05] LABS: BILIRUBIN,TOTAL 0.3 mg/dL (0.2-1); MAGNESIUM 2.1 mg/dL (1.8-2.4); TOT PROT 7.4 g/dl (6.4-8.2)
--- NOTE | 2020-05-17 09:58 | PN ---
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 (short form) - Note 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: Neurology CC: LUE weakness History of Present Illness: 79-year-old female history of hypertension, dementia depression spinal stenosis underwent L3 5 spinal surgery 8 years ago that got infected, admitted at [facility] underwent hardware removal of L3-L5 hardware, including L4-L5 intervertebral cage, L3-S1 laminectomy, L5-S1 PLIF, L3-S1 posterior instrumented spinal fusion. On April 09, 2020 at [facility] subsequently had a prolonged complicated hospital course developed Pseudomonas UTI, E. coli sepsis and VRE and E. coli in the wound, Abx as per ID recommendation, patient remained afebrile, considering deconditioning and poor nutrition evaluated by speech and swallow recommended PEG placement but family refused, currently on pured diet, cleared by orthopedic to discharge to subacute rehab. I was consulted to evaluate for left upper extremity weakness that the patient reportedly experience. She states that it is new, noncontrast head CT was completed and showed prior left subinsular and occipital infarcts, no acute changes. MRI brain obtained yesterday evening and discussed results with nurse. 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 Carotid doppler, echo recommended. Patient was started on ASA and statin. Was not TPA candidate as she was out of window. Active Medications Acetaminophen (Tylenol -) 650 mg PO Q6H PRN PRN Reason: Fever Amino Acids (Prosource No Carb Liquid Pkt) 30 ml PO TID [facility] Last Admin: 05/17/20 06:30 Dose: 30 ml Documented by: Amlodipine Besylate (Norvasc -) 5 mg PO DAILY [facility] Ascorbic Acid (Vitamin C -) 500 mg PO BID [facility] Last Admin: 05/16/20 23:06 Dose: 500 mg Documented by: Aspirin (Asa -) 81 mg PO DAILY [facility] Atorvastatin Calcium (Lipitor -) 20 mg PO HS [facility] Citalopram Hydrobromide (Celexa -) 20 mg PO HS [facility] Last Admin: 05/16/20 23:06 Dose: 20 mg Documented by: Collagenase (Santyl -) 1 applic TP DAILY [facility]; Protocol Docusate Sodium (Colace -) 100 mg PO TID [facility] Last Admin: 05/17/20 06:31 Dose: Not Given Documented by: Fentanyl (Sublimaze Injection -) 25 mcg IVPUSH Q5M PRN PRN Reason: PAIN-PACU ORDER X 4 DOSES ONLY Daptomycin 500 mg/ Sodium (Chloride) 50 mls @ 50 mls/hr IVPB Q24H [facility]; Protocol Meropenem 1 gm/ Dextrose 100 mls @ 200 mls/hr IVPB Q8H-IV [facility] Last Admin: 05/17/20 01:37 Dose: 200 mls/hr Documented by: Dextrose/Sodium Chloride (D5-1/2ns -) 1,000 mls @ 30 mls/hr IV ASDIR [facility] Last Admin: 05/17/20 00:11 Dose: 30 mls/hr Documented by: Mirtazapine (Remeron -) 7.5 mg PO HS [facility] Last Admin: 05/16/20 23:06 Dose: 7.5 mg Documented by: Multivitamins/Minerals (Certavite-Antioxidant Liquid) 15 ml PO DAILY [facility] Ondansetron HCl (Zofran Injection) 4 mg IVPUSH Q6H PRN PRN Reason: NAUSEA AND/OR VOMITING Pantoprazole Sodium (Protonix Packets For Oral Suspension -) 40 mg PO ACBK [facility] Last Admin: 05/17/20 06:30 Dose: 40 mg Documented by: Polyethylene Glycol (Miralax (For Daily Use) -) 17 gm PO BID PRN PRN Reason: CONSTIPATION Senna/Docusate Sodium (Pericolace -) 1 tablet PO BID PRN PRN Reason: CONSTIPATION - Objective Vital Signs Period Temp Pulse Resp BP Sys/Lepe Pulse Ox Last 24 Hr 98 F-98.7 F 67-79 18-22 145-150/66-80 93-100 General: Elderly woman, comfortable, not in distress HEENT mucous membranes moist, no anemia, no jaundice, PERRLA, no nystagmus Neck: No JVD, supple, no bruit, thyroid palpably normal, normal carotid pulsations. Chest: Nontender, clear to auscultation bilaterally/bilateral wheezing/bilateral basal rales. CVS: S1-S2 regular/irregular no murmur/gallop/rub Abdomen: Nondistended, soft, bowel sounds present. 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 , awake, RUE 5-/5, LUE 3/5, LLE 3/5, RLE 4+/5, sensory intact, gait deferred CBCD WBC 11.5 K/mm3 (4.0-10.0) H 05/17/20 06:50 RBC 3.58 M/mm3 (3.60-5.2) L 05/17/20 06:50 Hgb 9.6 GM/dL (10.7-15.3) L 05/17/20 06:50 Hct 29.8 % (32.4-45.2) L 05/17/20 06:50 MCV 83.3 fl (80-96) 05/17/20 06:50 MCHC 32.2 g/dl (32.0-36.0) 05/17/20 06:50 RDW 15.5 % (11.6-15.6) 05/17/20 06:50 Plt Count 543 K/MM3 (134-434) H 05/17/20 06:50 MPV 8.2 fl (7.5-11.1) 05/17/20 06:50 CMP Sodium 142 mmol/L (136-145) 05/17/20 06:50 Potassium 4.2 mmol/L (3.5-5.1) 05/17/20 06:50 Chloride 106 mmol/L (98-107) 05/17/20 06:50 Carbon Dioxide 30 mmol/L (21-32) 05/17/20 06:50 Anion Gap 6 MMOL/L (8-16) L 05/17/20 06:50 BUN 28.5 mg/dL (7-18) H 05/17/20 06:50 Creatinine 0.6 mg/dL (0.55-1.3) 05/17/20 06:50 Random Glucose 89 mg/dL (74-106) 05/17/20 06:50 Calcium 10.0 mg/dL (8.5-10.1) 05/17/20 06:50 Total Bilirubin 0.3 mg/dL (0.2-1) 05/17/20 06:50 AST 39 U/L (15-37) H 05/17/20 06:50 ALT 49 U/L (13-61) 05/17/20 06:50 Alkaline Phosphatase 139 U/L (45-117) H 05/17/20 06:50 Total Protein 7.4 g/dl (6.4-8.2) 05/17/20 06:50 Albumin 2.0 g/dl (3.4-5.0) L 05/17/20 06:50 CARDIAC ENZYMES Creatine Kinase 99 U/L (26-192) 05/06/20 06:40 Plan: 79-year-old female history of hypertension, dementia depression spinal stenosis underwent L3 5 spinal surgery 8 years ago that got infected, admitted at [facility] underwent hardware removal of L3-L5 hardware, including L4-L5 intervertebral cage, L3-S1 laminectomy, L5-S1 PLIF, L3-S1 posterior instrumented spinal fusion. On April 09, 2020 at [facility] subsequently had a prolonged complicated hospital course developed Pseudomonas UTI, E. coli sepsis and VRE and E. coli in the wound, Abx as per ID recommendation, patient remained afebrile, considering deconditioning and poor nutrition evaluated by speech and swallow recommended PEG placement but family refused, currently on pured diet, cleared by orthopedic to discharge to subacute rehab. I was consulted to evaluat e for left upper extremity weakness that the patient reportedly experience. She states that it is new, noncontrast head CT was completed and showed prior left subinsular and occipital infarcts, no acute changes. MRI brain obtained yesterday evening and discussed results with nurse. 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 Carotid doppler, echo recommended. Patient was started on ASA and statin. LDL 156, will increase statin to 40mg. Was not TPA candidate as she was out of window. Monitor BP, maintain <160/90. Continue management and optimization of underlying urinary tract infection. Postoperative follow-up by orthopedist. Physical therapy as tolerated,rehabilitation placement being planned.
--- NOTE | 2020-05-17 11:25 | PN ---
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, [employer] - Note 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: Last seen 05/10--On pureed diet with nectar thick liquids, magic cup BID, and Two jailene daily (mix w/cereal), Ensure pudding daily Give nutritional supplements throughout the day to increase needed nutrition for wound healing. Family refused supplemental TF/PEG. Tolerates diet well with fair intake. New onset L sided deficits 05/15- noncontrast head CT was completed and showed prior left subinsular and occipital infarcts, no acute changes. MRI brain Chronic L and R occipital infarcts and L subinsular infarcts noted, however acute R posterior periventricular infarct. Selected Entries 05/15/20 05/15/20 05/15/20 10:00 14:00 19:02 Breakfast 75% Lunch 75% Supper 0 Temperature Pulse Rate Blood Pressure 05/16/20 05/17/20 05/17/20 14:54 02:07 06:00 Breakfast Lunch NPO Supper Temperature 98.7 F 98.4 F Pulse Rate 75 79 Blood Pressure 150/75 150/76 Laboratory Tests 05/13/20 05/14/20 05/15/20 07:55 08:01 06:34 WBC 14.3 H 16.1 H 13.8 H 05/16/20 05/17/20 06:15 06:50 WBC 13.1 H 11.5 H NPO except meds. Speech/Swallowing reassessed- Cough response on thin liquids. Good tolerance of puree/nectar. Speech precise, voice euphonic. Left neglect/hemianopsia? with cues needed to cross midline to the left Suggest-puree/nectar, meds in applesauce, Magic cup, ensure pudding.
--- NOTE | 2020-05-17 11:40 | PN ---
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, Physician History of Present Illness: events noted neurology findings and imaging studies noted stable - Current Medication List Current Medications: Active Medications Acetaminophen (Tylenol -) 650 mg PO Q6H PRN PRN Reason: Fever Amino Acids (Prosource No Carb Liquid Pkt) 30 ml PO TID [facility] Last Admin: 05/17/20 06:30 Dose: 30 ml Documented by: Amlodipine Besylate (Norvasc -) 5 mg PO DAILY [facility] Ascorbic Acid (Vitamin C -) 500 mg PO BID [facility] Last Admin: 05/16/20 23:06 Dose: 500 mg Documented by: Aspirin (Asa -) 81 mg PO DAILY [facility] Atorvastatin Calcium (Lipitor -) 20 mg PO HS [facility] Citalopram Hydrobromide (Celexa -) 20 mg PO HS [facility] Last Admin: 05/16/20 23:06 Dose: 20 mg Documented by: Collagenase (Santyl -) 1 applic TP DAILY [facility]; Protocol Docusate Sodium (Colace -) 100 mg PO TID [facility] Last Admin: 05/17/20 06:31 Dose: Not Given Documented by: Fentanyl (Sublimaze Injection -) 25 mcg IVPUSH Q5M PRN PRN Reason: PAIN-PACU ORDER X 4 DOSES ONLY Daptomycin 500 mg/ Sodium (Chloride) 50 mls @ 50 mls/hr IVPB Q24H [facility]; Protocol Meropenem 1 gm/ Dextrose 100 mls @ 200 mls/hr IVPB Q8H-IV [facility] Last Admin: 05/17/20 01:37 Dose: 200 mls/hr Documented by: Dextrose/Sodium Chloride (D5-1/2ns -) 1,000 mls @ 30 mls/hr IV ASDIR [facility] Last Admin: 05/17/20 00:11 Dose: 30 mls/hr Documented by: Mirtazapine (Remeron -) 7.5 mg PO HS [facility] Last Admin: 05/16/20 23:06 Dose: 7.5 mg Documented by: Multivitamins/Minerals (Certavite-Antioxidant Liquid) 15 ml PO DAILY [facility] Ondansetron HCl (Zofran Injection) 4 mg IVPUSH Q6H PRN PRN Reason: NAUSEA AND/OR VOMITING Pantoprazole Sodium (Protonix Packets For Oral Suspension -) 40 mg PO ACBK [facility] Last Admin: 05/17/20 06:30 Dose: 40 mg Documented by: Polyethylene Glycol (Miralax (For Daily Use) -) 17 gm PO BID PRN PRN Reason: CONSTIPATION Senna/Docusate Sodium (Pericolace -) 1 tablet PO BID PRN PRN Reason: CONSTIPATION - Objective Vital Signs: Vital Signs Temperature 98.1 F 05/17/20 09:34 Pulse Rate 81 05/17/20 09:34 Respiratory Rate 18 05/17/20 09:34 Blood Pressure 151/70 05/17/20 09:34 O2 Sat by Pulse Oximetry (%) 96 05/17/20 09:34 Constitutional: Yes: No Distress, Calm Cardiovascular: Yes: S1, S2 Respiratory: Yes: Regular, CTA Bilaterally Gastrointestinal: Yes: Normal Bowel Sounds, Soft Musculoskeletal: Yes: WNL Extremities: Yes: Other Neurological: Yes: Alert, Other (left sided weakness) Labs: CBC, BMP 05/17/20 06:50 05/17/20 06:50 INR, PTT INR 1.25 (0.83-1.09) H 04/25/20 06:00 - ....Imaging Cat Scan: Report Reviewed, Image Reviewed Assessment/Plan Problem List - Problems (1) Severe sepsis Code(s): A41.9 - SEPSIS, UNSPECIFIED ORGANISM; R65.20 - SEVERE SEPSIS WITHOUT SEPTIC SHOCK (2) Bacteremia due to Gram-negative bacteria Code(s): R78.81 - BACTEREMIA (3) Status post spinal surgery Code(s): Z98.890 - OTHER SPECIFIED POSTPROCEDURAL STATES (4) Toxic metabolic encephalopathy Code(s): G92 - TOXIC ENCEPHALOPATHY (5) Urinary tract infection Code(s): N39.0 - URINARY TRACT INFECTION, SITE NOT SPECIFIED Qualifiers: Urinary tract infection type: site unspecified Hematuria presence: without hematuria Qualified Code(s): N39.0 - Urinary tract infection, site not specified Assessment/Plan 79 y.o. female with PMH of dementia, HTN, depression, lumbar stenosis s/p laminectomy, neuropathy who underwent removal of L3-L5 hardware, L3-S1 laminectomies, L5-S1 PLIF/L3-S1 PSIF on 04/09/20 and noted to develop fever up to 101.8F and increase in wbc to 16.8K along with lethargy and mild hypotension Severe Sepsis Gram negative/E. coli Bacteremia Pseudomonas UTI s/p lumbar wound I+D, s/p washout/wound vac placement plan ct current mgmt abx wound care rest as per the team complete the abx course patient needs another 4 weeks
[2020-05-17] MEDS: MULTIVIT-MINERALS ORAL LIQUID PO SCH (11:51)
[2020-05-17] MEDS: ASPIRIN 81 MG CHEWABLE TABLETS PO SCH (11:52)
[2020-05-17] MEDS: amLODIPine BESYLATE 5 MG TABLET (FP) PO SCH (11:52)
[2020-05-17] MEDS: COLLAGENASE CLOSTRIDIUM HIST. 30 GRAMS TUBE TP SCH (11:52)
[2020-05-17] MEDS: ASCORBIC ACID 500 MG TABLET (FP) PO SCH ×2 (11:52→23:13)
--- NOTE | 2020-05-17 13:52 | ECHO ---
Name: MOO MORALES Exam:Adult Echocardiogram Study Date: 05/17/2020 10:28 AM Age: 80 yrs Reason For Study: SYNCOPE Height: 67 in Weight: 162 lb BSA: 1.8 m2 MMode/2D Measurements & Calculations IVSd: 1.4 cm Ao root diam: 2.8 cm LVIDd: 3.4 cm LA dimension: 3.2 cm LVIDs: 2.5 cm ACS: 1.8 cm LVPWd: 0.88 cm LVPWs: 1.2 cm EDV(Teich): 48.5 ml ESV(Teich): 22.3 ml LVOT diam: 2.0 cm LAV (MOD-bp): 26.5 ml TAPSE: 1.4 cm RV S Jimmy: 22.7 cm/sec Doppler Measurements & Calculations MVA(VTI): 3.2 cm2 MV E max jimmy: 88.3 cm/sec MV V2 max: 136.4 cm/sec MV A max jimmy: 128.8 cm/sec MV max P.5 mmHg MV E/A: 0.69 MV V2 mean: 73.9 cm/sec MV mean P.6 mmHg MV V2 VTI: 29.3 cm Ao V2 max: 224.4 cm/sec MV dec slope: 387.1 cm/sec2 Ao max P.2 mmHg Ao V2 mean: 140.7 cm/sec Ao mean P.5 mmHg Ao V2 VTI: 43.4 cm VASQUEZ(I,D): 2.2 cm2 VASQUEZ(V,D): 2.0 cm2 LV V1 max P.2 mmHg SV(LVOT): 94.7 ml LV V1 mean P.4 mmHg LV V1 max: 142.8 cm/sec LV V1 mean: 83.0 cm/sec LV V1 VTI: 30.8 cm TR max jimmy: 291.2 cm/sec PA V2 max: 152.0 cm/sec TR max P.0 mmHg PA max P.2 mmHg Med Peak E' Jimmy: 3.9 cm/sec Med E/e': 22.6 Lat Peak E' Jimmy: 10.1 cm/sec Lat E/e': 8.7 Procedure A complete two-dimensional transthoracic echocardiogram was performed (2D, M-mode, Doppler and color flow Doppler). Left Ventricle The left ventricular size, thickness and function are normal. Ejection Fraction = 65-70%. The left ve ntricular wall motion is normal. Right Ventricle The right ventricle is normal in size and function. Atria Normal left and right atrial size and function. Mitral Valve There is mild mitral annular calcification. There is no mitral regurgitation noted. Tricuspid Valve There is trace tricuspid regurgitation. There was insufficient TR detected to calculate RV systolic p ressure. Aortic Valve Mild valvular aortic stenosis. No aortic regurgitation is present. Pulmonic Valve There is no pulmonic valvular regurgitation. Great Vessels The aortic root is normal size. Pericardium/Pleura There is no pericardial effusion. Interpretation Summary The left ventricular size, thickness and function are normal The right ventricle is normal in size and function. There is trace tricuspid regurgitation. Mild valvular aortic stenosis. MD Scout Whitehead 05/17/2020 01:52 PM
[2020-05-17] MEDS: DAPTOMYCIN 500 MG in SODIUM CHLORIDE 50 ML IVPB SCH (15:54)
[2020-05-17] MEDS: MIRTAZAPINE 15 MG TABLET (FP) PO SCH (23:12)
[2020-05-17] MEDS: CITALOPRAM HYDROBROMIDE 20 MG TABLET PO SCH (23:13)
[2020-05-17] MEDS: ACETAMINOPHEN 325 MG TABLET (FP) PO PRN (23:29)
[2020-05-18] MEDS ORDERED: MEROPENEM 1 GM VIAL (RESTRICTED TO ID) IVPB ONE ×3 (01:22→16:32)
[2020-05-18] MEDS ORDERED: DEXTROSE 5%-WATER 100 ML IVPB ONE ×3 (01:23→16:32)
[2020-05-18] MEDS: MEROPENEM 1 GM in DEXTROSE 5%-WATER 100 ML IVPB SCH ×3 (02:00→18:06)
[2020-05-18] MEDS: DOCUSATE SODIUM 100 MG CAPSULE (FP) PO SCH (05:09)
[2020-05-18] MEDS: AMINO ACIDS/PROTEIN HYDROLYS 30 ML LIQUID.PKT PO SCH ×3 (06:24→21:01)
[2020-05-18] MEDS: PANTOPRAZOLE SOD 40 MG SUSPENSION PACKET PO SCH (06:24)
[2020-05-18 07:02] LABS: BASO % 1.7 % (0-2.0); HEMATOCRIT 31.2 % (32.4-45.2); LYMPH % 11.5 % (8-40); MCH 26.6 pg (25.7-33.7); MEAN CELL VOLUME 83.1 fl (80-96); MEAN PLT VOLUME 8.2 fl (7.5-11.1); MONO % 5.2 % (3.8-10.2); NEUT % 77.6 % (42.8-82.8); PLATELET COUNT 586 K/MM3 (134-434); RBC 3.76 M/mm3 (3.60-5.2); RDW 15.8 % (11.6-15.6); WHITE BLOOD COUNT 12.9 K/mm3 (4.0-10.0)
[2020-05-18 07:26] LABS: BLOOD UREA NITROGEN 29.6 mg/dL (7-18); CALCIUM 9.8 mg/dL (8.5-10.1); CREATININE 0.7 mg/dL (0.55-1.3); POTASSIUM 4.2 mmol/L (3.5-5.1)
--- NOTE | 2020-05-18 07:28 | PN ---
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, Physician Chief Complaint: Patient remained at baseline, not in distress History of Present Illness: 79-year-old female history of hypertension, dementia depression spinal stenosis underwent L3 5 spinal surgery 8 years ago that got infected, admitted at [facility] underwent hardware removal of L3-L5 hardware, including L4-L5 intervertebral cage, L3-S1 laminectomy, L5-S1 PLIF, L3-S1 posterior instrumented spinal fusion. On April 09, 2020 at [facility] subsequently had a prolonged complicated hospital course developed Pseudomonas UTI, E. coli sepsis and VRE and E. coli in the wound, currently on daptomycin and meropenem as per ID recommendation, patient remained afebrile, considering deconditioning and poor nutrition evaluated by speech and swallow recommended PEG placement but family refused, currently on pured diet, cleared by orthopedic to discharge to subacute rehab.Left UE weakness noted w/u shows small post periventricular infarct transfer to [facility] for stroke w/u . 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 on signal operator technical, carotid Doppler shows intimal thickening and atherosclerosis no gross obstruction. - Current Medication List Current Medications: Active Medications Acetaminophen (Tylenol -) 650 mg PO Q6H PRN PRN Reason: Fever Last Admin: 05/17/20 23:29 Dose: 650 mg Documented by: Amino Acids (Prosource No Carb Liquid Pkt) 30 ml PO TID [facility] Last Admin: 05/18/20 06:24 Dose: 30 ml Documented by: Amlodipine Besylate (Norvasc -) 5 mg PO DAILY [facility] Last Admin: 05/17/20 11:52 Dose: 5 mg Documented by: Ascorbic Acid (Vitamin C -) 500 mg PO BID [facility] Last Admin: 05/17/20 23:13 Dose: 500 mg Documented by: Aspirin (Asa -) 81 mg PO DAILY [facility] Last Admin: 05/17/20 11:52 Dose: 81 mg Documented by: Atorvastatin Calcium (Lipitor -) 20 mg PO HS [facility] Citalopram Hydrobromide (Celexa -) 20 mg PO HS [facility] Last Admin: 05/17/20 23:13 Dose: 20 mg Documented by: Collagenase (Santyl -) 1 applic TP DAILY [facility]; Protocol Last Admin: 05/17/20 11:52 Dose: Not Given Documented by: Docusate Sodium (Colace -) 100 mg PO TID [facility] Last Admin: 05/18/20 05:09 Dose: Not Given Documented by: Fentanyl (Sublimaze Injection -) 25 mcg IVPUSH Q5M PRN PRN Reason: PAIN-PACU ORDER X 4 DOSES ONLY Daptomycin 500 mg/ Sodium (Chloride) 50 mls @ 50 mls/hr IVPB Q24H [facility]; Protocol Last Admin: 05/17/20 15:54 Dose: 50 mls/hr Documented by: Meropenem 1 gm/ Dextrose 100 mls @ 200 mls/hr IVPB Q8H-IV [facility] Last Admin: 05/18/20 02:00 Dose: 200 mls/hr Documented by: Dextrose/Sodium Chloride (D5-1/2ns -) 1,000 mls @ 30 mls/hr IV ASDIR [facility] Last Admin: 05/17/20 23:30 Dose: Not Given Documented by: Mirtazapine (Remeron -) 7.5 mg PO HS [facility] Last Admin: 05/17/20 23:12 Dose: 7.5 mg Documented by: Multivitamins/Minerals (Certavite-Antioxidant Liquid) 15 ml PO DAILY [facility] Last Admin: 05/17/20 11:51 Dose: 15 ml Documented by: Ondansetron HCl (Zofran Injection) 4 mg IVPUSH Q6H PRN PRN Reason: NAUSEA AND/OR VOMITING Pantoprazole Sodium (Protonix Packets For Oral Suspension -) 40 mg PO ACBK [facility] Last Admin: 05/18/20 06:24 Dose: 40 mg Documented by: Polyethylene Glycol (Miralax (For Daily Use) -) 17 gm PO BID PRN PRN Reason: CONSTIPATION Senna/Docusate Sodium (Pericolace -) 1 tablet PO BID PRN PRN Reason: CONSTIPATION - Objective Vital Signs: Vital Signs Temperature 98.4 F 05/18/20 06:00 Pulse Rate 75 05/18/20 06:00 Respiratory Rate 18 05/18/20 06:00 Blood Pressure 159/86 05/18/20 06:00 O2 Sat by Pulse Oximetry (%) 97 05/17/20 22:00 General: Elderly woman, comfortable, not in distress HEENT mucous membranes moist, no anemia, no jaundice, PERRLA, no nystagmus Neck: No JVD, supple, no bruit, thyroid palpably normal, normal carotid pulsations. Chest: Nontender, clear to auscultation bilaterally CVS: S1-S2 regularno murmur/gallop/rub Abdomen: Nondistended, soft, bowel sounds present. 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, but lethargic, responding to verbal, Left sided weakness at base line no worsening Labs: CBC, BMP 05/18/20 06:06 05/18/20 06:06 INR, PTT INR 1.25 (0.83-1.09) H 04/25/20 06:00 - ....Imaging Ultrasound: Report Reviewed (Carotid ultrasound atherosclerotic disease no significant obstruction) MRI: Report Reviewed (Small acute lacunar infarct on right posterior periventricular) Problem List - Problems (1) Bacteremia due to Gram-negative bacteria Assessment/Plan: On meropenem and daptomycin duration of antibiotic as per ID Code(s): R78.81 - BACTEREMIA (2) Severe sepsis Assessment/Plan: Grew multiple pathogens on daptomycin and meropenem repeat cultures are negative patient has UTI with E. coli and E. coli bacteremia Code(s): A41.9 - SEPSIS, UNSPECIFIED ORGANISM; R65.20 - SEVERE SEPSIS WITHOUT SEPTIC SHOCK (3) Hypertension Assessment/Plan: Well-controlled continue current medication Code(s): I10 - ESSENTIAL (PRIMARY) HYPERTENSION (4) Depression Assessment/Plan: At present stable continue current management Code(s): F32.9 - MAJOR DEPRESSIVE DISORDER, SINGLE EPISODE, UNSPECIFIED (5) Status post spinal surgery Assessment/Plan: Infected continue daptomycin and meropenem, wound VAC at place hemorrhagic serosanguineous discharge, surgeon wants to do skin flap and wound wash, considering acute ischemic stroke , requires neurology clearance prior to surgery. Code(s): Z98.890 - OTHER SPECIFIED POSTPROCEDURAL STATES (6) Failure to thrive Assessment/Plan: Patient has poor p.o. intake, with low albumin, speech and swallow evaluated recommended PEG placement but patient refused, currently on pured diet continue nutrition consult. Calorie count. Code(s): QEA4481 - (7) Left-sided weakness Assessment/Plan: left sided weakness noted w/u shows(MRI) multiple chronic ischemic changes and small Rt Post Periventricular lacunar infarct, no event on Tele over night, cont ASA, Statin, neuro check, BP at optimum level, findings and plan discussed with the patient son. 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
--- NOTE | 2020-05-18 09:36 | PN ---
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, [facility] - Note 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: Selected Entries 05/17/20 05/17/20 05/17/20 02:07 06:00 09:00 Breakfast Diet Tolerated Lunch Supper Temperature 98.7 F 98.4 F Pulse Rate 75 79 Respiratory 20 18 18 Rate Respiratory Normal Depth Respiratory Non-Labored Effort Blood Pressure 150/75 150/76 05/17/20 05/17/20 05/17/20 09:34 13:59 15:00 Breakfast NPO Diet Tolerated Poor Lunch NPO Supper Temperature 98.1 F 97.9 F Pulse Rate 81 81 Respiratory 18 20 Rate Respiratory Depth Respiratory Effort Blood Pressure 151/70 152/60 05/17/20 05/17/20 05/17/20 17:19 21:00 22:00 Breakfast Diet Tolerated Lunch Supper Temperature 97.9 F 97.9 F Pulse Rate 82 76 Respiratory 20 18 18 Rate Respiratory Normal Depth Respiratory Non-Labored Effort Blood Pressure 145/68 143/80 05/17/20 05/17/20 05/18/20 22:59 23:00 02:00 Breakfast Diet Tolerated Poor Lunch Supper 25% 25% Temperature 98.3 F Pulse Rate 75 Respiratory 19 Rate Respiratory Depth Respiratory Effort Blood Pressure 168/87 05/18/20 06:00 Breakfast Diet Tolerated Lunch Supper Temperature 98.4 F Pulse Rate 75 Respiratory 18 Rate Respiratory Depth Respiratory Effort Blood Pressure 159/86 Laboratory Tests 05/16/20 05/17/20 05/18/20 06:15 06:50 06:06 WBC 13.1 H 11.5 H 12.9 H Puree with nectar thicken liquid ordered yesterday; ate/tolerated 75% lunch and 25% per EMR Nursing reports white coating on posterior right side of tongue-r/o thrush
[2020-05-18] MEDS: MULTIVIT-MINERALS ORAL LIQUID PO SCH (10:22)
[2020-05-18] MEDS: amLODIPine BESYLATE 5 MG TABLET (FP) PO SCH (10:23)
[2020-05-18] MEDS: ASPIRIN 81 MG CHEWABLE TABLETS PO SCH (10:23)
[2020-05-18] MEDS: ASCORBIC ACID 500 MG TABLET (FP) PO SCH ×2 (10:23→21:01)
[2020-05-18] MEDS: COLLAGENASE CLOSTRIDIUM HIST. 30 GRAMS TUBE TP SCH (10:23)
--- NOTE | 2020-05-18 12:52 | PN ---
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, Physician History of Present Illness: stable neurology note noted - Current Medication List Current Medications: Active Medications Acetaminophen (Tylenol -) 650 mg PO Q6H PRN PRN Reason: Fever Last Admin: 05/17/20 23:29 Dose: 650 mg Documented by: Amino Acids (Prosource No Carb Liquid Pkt) 30 ml PO TID [facility] Last Admin: 05/18/20 06:24 Dose: 30 ml Documented by: Amlodipine Besylate (Norvasc -) 5 mg PO DAILY [facility] Last Admin: 05/18/20 10:23 Dose: 5 mg Documented by: Ascorbic Acid (Vitamin C -) 500 mg PO BID [facility] Last Admin: 05/18/20 10:23 Dose: 500 mg Documented by: Aspirin (Asa -) 81 mg PO DAILY [facility] Last Admin: 05/18/20 10:23 Dose: 81 mg Documented by: Atorvastatin Calcium (Lipitor -) 20 mg PO HS [facility] Citalopram Hydrobromide (Celexa -) 20 mg PO HS [facility] Last Admin: 05/17/20 23:13 Dose: 20 mg Documented by: Collagenase (Santyl -) 1 applic TP DAILY [facility]; Protocol Last Admin: 05/18/20 10:23 Dose: Not Given Documented by: Docusate Sodium (Colace Liquid -) 100 mg PO BID [facility] Fentanyl (Sublimaze Injection -) 25 mcg IVPUSH Q5M PRN PRN Reason: PAIN-PACU ORDER X 4 DOSES ONLY Daptomycin 500 mg/ Sodium (Chloride) 50 mls @ 50 mls/hr IVPB Q24H [facility]; Protocol Last Admin: 05/17/20 15:54 Dose: 50 mls/hr Documented by: Meropenem 1 gm/ Dextrose 100 mls @ 200 mls/hr IVPB Q8H-IV [facility] Last Admin: 05/18/20 10:22 Dose: 200 mls/hr Documented by: Dextrose/Sodium Chloride (D5-1/2ns -) 1,000 mls @ 30 mls/hr IV ASDIR [facility] Last Admin: 05/17/20 23:30 Dose: Not Given Documented by: Mirtazapine (Remeron -) 7.5 mg PO HS [facility] Last Admin: 05/17/20 23:12 Dose: 7.5 mg Documented by: Multivitamins/Minerals (Certavite-Antioxidant Liquid) 15 ml PO DAILY [facility] Last Admin: 05/18/20 10:22 Dose: 15 ml Documented by: Nystatin (Nystatin Oral Suspension -) 500,000 units PO Q6HPO [facility] Ondansetron HCl (Zofran Injection) 4 mg IVPUSH Q6H PRN PRN Reason: NAUSEA AND/OR VOMITING Pantoprazole Sodium (Protonix Packets For Oral Suspension -) 40 mg PO ACBK [facility] Last Admin: 05/18/20 06:24 Dose: 40 mg Documented by: Polyethylene Glycol (Miralax (For Daily Use) -) 17 gm PO BID PRN PRN Reason: CONSTIPATION Senna/Docusate Sodium (Pericolace -) 1 tablet PO BID PRN PRN Reason: CONSTIPATION - Objective Vital Signs: Vital Signs Temperature 98.3 F 05/18/20 10:15 Pulse Rate 71 05/18/20 10:15 Respiratory Rate 18 05/18/20 10:15 Blood Pressure 154/67 05/18/20 10:15 O2 Sat by Pulse Oximetry (%) 99 05/18/20 10:15 Constitutional: Yes: No Distress, Calm Cardiovascular: Yes: S1, S2 Respiratory: Yes: Regular, CTA Bilaterally Gastrointestinal: Yes: Normal Bowel Sounds, Soft Musculoskeletal: Yes: WNL Extremities: Yes: Other Neurological: Yes: Other (left side weakness) Labs: CBC, BMP 05/18/20 06:06 05/18/20 06:06 INR, PTT INR 1.25 (0.83-1.09) H 04/25/20 06:00 Assessment/Plan Problem List - Problems (1) Severe sepsis Code(s): A41.9 - SEPSIS, UNSPECIFIED ORGANISM; R65.20 - SEVERE SEPSIS WITHOUT SEPTIC SHOCK (2) Bacteremia due to Gram-negative bacteria Code(s): R78.81 - BACTEREMIA (3) Status post spinal surgery Code(s): Z98.890 - OTHER SPECIFIED POSTPROCEDURAL STATES (4) Toxic metabolic encephalopathy Code(s): G92 - TOXIC ENCEPHALOPATHY (5) Urinary tract infection Code(s): N39.0 - URINARY TRACT INFECTION, SITE NOT SPECIFIED Qualifiers: Urinary tract infection type: site unspecified Hematuria presence: without hematuria Qualified Code(s): N39.0 - Urinary tract infection, site not specified Assessment/Plan 79 y.o. female with PMH of dementia, HTN, depression, lumbar stenosis s/p laminectomy, neuropathy who underwent removal of L3-L5 hardware, L3-S1 laminectomies, L5-S1 PLIF/L3-S1 PSIF on 04/09/20 and noted to develop fever up to 101.8F and increase in wbc to 16.8K along with lethargy and mild hypotension Severe Sepsis Gram negative/E. coli Bacteremia Pseudomonas UTI s/p lumbar wound I+D, s/p washout/wound vac placement plan ct current mgmt abx wound care neurology mgmt rest as per the team
[2020-05-18] MEDS: DOCUSATE NA 100 MG/10 ML UNIT-DOSE CUPS PO SCH ×2 (14:05→21:01)
[2020-05-18] MEDS: DAPTOMYCIN 500 MG in SODIUM CHLORIDE 50 ML IVPB SCH (15:45)
[2020-05-18] MEDS: ACETAMINOPHEN 325 MG TABLET (FP) PO PRN (16:47)
[2020-05-18] MEDS: NYSTATIN 500,000 UNITS/5 ML SUSPENSION PO SCH (18:06)
[2020-05-18] MEDS: CITALOPRAM HYDROBROMIDE 20 MG TABLET PO SCH (21:01)
[2020-05-18] MEDS: MIRTAZAPINE 15 MG TABLET (FP) PO SCH (21:01)
[2020-05-18] MEDS: DEXTROSE 5%-0.45% SALINE 1,000 ML IV SCH (21:39)
[2020-05-19] MEDS: DEXTROSE 5%-0.45% SALINE 1,000 ML IV SCH ×2 (00:52→23:47)
[2020-05-19] MEDS: NYSTATIN 500,000 UNITS/5 ML SUSPENSION PO SCH ×5 (00:54→23:47)
[2020-05-19] MEDS ORDERED: MEROPENEM 1 GM VIAL (RESTRICTED TO ID) IVPB ONE ×3 (01:14→18:27)
[2020-05-19] MEDS ORDERED: DEXTROSE 5%-WATER 100 ML IVPB ONE ×3 (01:15→18:28)
[2020-05-19] MEDS: MEROPENEM 1 GM in DEXTROSE 5%-WATER 100 ML IVPB SCH ×3 (01:22→18:32)
[2020-05-19] MEDS: PANTOPRAZOLE SOD 40 MG SUSPENSION PACKET PO SCH (06:40)
[2020-05-19] MEDS: AMINO ACIDS/PROTEIN HYDROLYS 30 ML LIQUID.PKT PO SCH ×3 (06:40→21:38)
[2020-05-19] MEDS ORDERED: PT OWN MED DRAWER 7, Y5N ONE (10:20)
[2020-05-19] MEDS: amLODIPine BESYLATE 5 MG TABLET (FP) PO SCH (10:33)
[2020-05-19] MEDS: DOCUSATE NA 100 MG/10 ML UNIT-DOSE CUPS PO SCH ×2 (10:33→21:38)
[2020-05-19] MEDS: ASPIRIN 81 MG CHEWABLE TABLETS PO SCH (10:33)
[2020-05-19] MEDS: ASCORBIC ACID 500 MG TABLET (FP) PO SCH ×2 (10:33→21:38)
[2020-05-19] MEDS: MULTIVIT-MINERALS ORAL LIQUID PO SCH (10:33)
[2020-05-19] MEDS: COLLAGENASE CLOSTRIDIUM HIST. 30 GRAMS TUBE TP SCH (10:34)
--- NOTE | 2020-05-19 11:33 | PN ---
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, Physician Chief Complaint: No acute events overnight, WBC=15 up from 12 She remains afebrile History of Present Illness: 79-year-old female with a history of hypertension, dementia depression spinal stenosis underwent L3 5 spinal surgery 8 years ago that got infected, admitted at [facility] underwent hardware removal of L3-L5 hardware, including L4-L5 intervertebral cage, L3-S1 laminectomy, L5-S1 PLIF, L3-S1 posterior instrumented spinal fusion. On April 09, 2020 at [facility] subsequently had a prolonged complicated hospital course developed Pseudomonas UTI, E. coli sepsis and VRE and E. coli in the wound, currently on daptomycin and meropenem as per ID recommendation, patient remained afebrile, considering deconditioning and poor nutrition evaluated by speech and swallow recommended PEG placement but family refused, currently on pured diet, cleared by orthopedic to discharge to subacute rehab. Left UE weakness noted work-up shows small post periventricular infarct transfer to [facility] for stroke w/u . 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 on surveillance monitor, carotid Doppler shows intimal thickening and atherosclerosis no gross obstruction. - Current Medication List Current Medications: Active Medications Acetaminophen (Tylenol -) 650 mg PO Q6H PRN PRN Reason: Fever Last Admin: 05/18/20 16:47 Dose: 650 mg Documented by: Amino Acids (Prosource No Carb Liquid Pkt) 30 ml PO TID [facility] Last Admin: 05/19/20 06:40 Dose: 30 ml Documented by: Amlodipine Besylate (Norvasc -) 5 mg PO DAILY [facility] Last Admin: 05/19/20 10:33 Dose: 5 mg Documented by: Ascorbic Acid (Vitamin C -) 500 mg PO BID [facility] Last Admin: 05/19/20 10:33 Dose: 500 mg Documented by: Aspirin (Asa -) 81 mg PO DAILY [facility] Last Admin: 05/19/20 10:33 Dose: 81 mg Documented by: Atorvastatin Calcium (Lipitor -) 20 mg PO HS [facility] Citalopram Hydrobromide (Celexa -) 20 mg PO HS [facility] Last Admin: 05/18/20 21:01 Dose: 20 mg Documented by: Collagenase (Santyl -) 1 applic TP DAILY [facility]; Protocol Last Admin: 05/19/20 10:34 Dose: Not Given Documented by: Docusate Sodium (Colace Liquid -) 100 mg PO BID [facility] Last Admin: 05/19/20 10:33 Dose: 100 mg Documented by: Fentanyl (Sublimaze Injection -) 25 mcg IVPUSH Q5M PRN PRN Reason: PAIN-PACU ORDER X 4 DOSES ONLY Daptomycin 500 mg/ Sodium (Chloride) 50 mls @ 50 mls/hr IVPB Q24H [facility]; Protocol Last Admin: 05/18/20 15:45 Dose: 50 mls/hr Documented by: Meropenem 1 gm/ Dextrose 100 mls @ 200 mls/hr IVPB Q8H-IV [facility] Last Admin: 05/19/20 10:33 Dose: 200 mls/hr Documented by: Dextrose/Sodium Chloride (D5-1/2ns -) 1,000 mls @ 30 mls/hr IV ASDIR [facility] Last Admin: 05/19/20 00:52 Dose: Not Given Documented by: Mirtazapine (Remeron -) 7.5 mg PO HS [facility] Last Admin: 05/18/20 21:01 Dose: 7.5 mg Documented by: Multivitamins/Minerals (Certavite-Antioxidant Liquid) 15 ml PO DAILY [facility] Last Admin: 05/19/20 10:33 Dose: 15 ml Documented by: Nystatin (Nystatin Oral Suspension -) 500,000 units PO Q6HPO [facility] Last Admin: 05/19/20 06:40 Dose: 500,000 units Documented by: Ondansetron HCl (Zofran Injection) 4 mg IVPUSH Q6H PRN PRN Reason: NAUSEA AND/OR VOMITING Pantoprazole Sodium (Protonix Packets For Oral Suspension -) 40 mg PO ACBK [facility] Last Admin: 05/19/20 06:40 Dose: 40 mg Documented by: Polyethylene Glycol (Miralax (For Daily Use) -) 17 gm PO BID PRN PRN Reason: CONSTIPATION Senna/Docusate Sodium (Pericolace -) 1 tablet PO BID PRN PRN Reason: CONSTIPATION - Objective Vital Signs: Vital Signs Temperature 97.6 F 05/19/20 10:00 Pulse Rate 70 05/19/20 10:00 Respiratory Rate 16 05/19/20 10:00 Blood Pressure 145/71 05/19/20 10:00 O2 Sat by Pulse Oximetry (%) 98 05/19/20 10:00 Constitutional: Yes: No Distress, Cachectic, Other (Chronically ill appearing) Eyes: Yes: WNL, Conjunctiva Clear HENT: Yes: WNL, Atraumatic, Normocephalic Neck: Yes: Supple, Trachea Midline Cardiovascular: Yes: WNL, Regular Rate and Rhythm Respiratory: Yes: WNL, Regular, CTA Bilaterally Gastrointestinal: Yes: WNL, Normal Bowel Sounds, Soft Genitourinary: Yes: WNL Musculoskeletal: Yes: WNL Extremities: Yes: WNL Integumentary: Yes: WNL Neurological: Yes: WNL, Alert, Oriented ...Motor Strength: WNL Psychiatric: Yes: WNL, Alert, Oriented Labs: CBC, BMP 05/18/20 06:06 05/18/20 06:06 INR, PTT INR 1.25 (0.83-1.09) H 04/25/20 06:00 Impression/Plan Impression/Plan: 79-year-old female history of hypertension, dementia depression spinal stenosis underwent L3 5 spinal surgery 8 years ago that got infected, admitted at [facility] underwent hardware removal of L3-L5 hardware, including L4-L5 intervertebral cage, L3-S1 laminectomy, L5-S1 PLIF, L3-S1 posterior instrumented spinal fusion. On April 09, 2020 at [facility] subsequently had a prolonged complicated hospital course developed Pseudomonas UTI, E. coli sepsis and VRE and E. coli in the wound, currently on daptomycin and meropenem as per ID recommendation, patient remained afebrile, considering deconditioning and poor nutrition evaluated by speech and swallow recommended PEG placement but family refused, currently on pured diet, cleared by orthopedic to discharge to subacu te rehab.Left UE weakness noted w/u shows small post periventricular infarct transfer to [facility] for stroke w/u . 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 on surveillance monitor, carotid Doppler shows intimal thickening and atherosclerosis no gross obstruction. - Problems (1) Bacteremia due to Gram-negative bacteria Assessment/Plan: On meropenem and daptomycin duration of antibiotic as per ID Monitor leukocytosis, WBC=15 up from 12 She remains afebrile Code(s): R78.81 - BACTEREMIA (2) Severe sepsis Assessment/Plan: Grew multiple pathogens on daptomycin and meropenem repeat cultures are negative patient has UTI with E. coli and E. coli bacteremia Code(s): A41.9 - SEPSIS, UNSPECIFIED ORGANISM; R65.20 - SEVERE SEPSIS WITHOUT SEPTIC SHOCK (3) Hypertension Assessment/Plan: Well-controlled continue current medication Code(s): I10 - ESSENTIAL (PRIMARY) HYPERTENSION (4) Depression Assessment/Plan: At present stable continue current management Code(s): F32.9 - MAJOR DEPRESSIVE DISORDER, SINGLE EPISODE, UNSPECIFIED (5) Status post spinal surgery Assessment/Plan: Infected continue daptomycin and meropenem, wound VAC at place hemorrhagic serosanguineous discharge, surgeon wants to do skin flap and wound wash, considering acute ischemic stroke , requires neurology clearance prior to surgery. Code(s): Z98.890 - OTHER SPECIFIED POSTPROCEDURAL STATES (6) Failure to thrive Assessment/Plan: Patient has poor p.o. intake, with low albumin, speech and swallow evaluated recommended PEG placement but patient refused, currently on pured diet continue nutrition consult. Calorie count. Code(s): QXI1188 - (7) Left-sided weakness Assessment/Plan: left sided weakness noted w/u shows(MRI) multiple chronic ischemic changes and small Rt Post Periventricular lacunar infarct, no event on Tele over night, cont ASA, Statin, neuro check, BP at optimum level, findings and plan discussed with the patient son. 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
[2020-05-19 12:22] LABS: BASO % 0.8 % (0-2.0); EOS % 4.1 % (0-4.5); HEMATOCRIT 29.3 % (32.4-45.2); HEMOGLOBIN 9.2 GM/dL (10.7-15.3); LYMPH % 8.6 % (8-40); MCH 26.3 pg (25.7-33.7); MCHC 31.5 g/dl (32.0-36.0); MEAN CELL VOLUME 83.4 fl (80-96); MEAN PLT VOLUME 8.5 fl (7.5-11.1); MONO % 3.5 % (3.8-10.2); PLATELET COUNT 565 K/MM3 (134-434); RBC 3.51 M/mm3 (3.60-5.2); RDW 15.5 % (11.6-15.6); WHITE BLOOD COUNT 15.5 K/mm3 (4.0-10.0)
[2020-05-19 12:44] LABS: BLOOD UREA NITROGEN 23.9 mg/dL (7-18); CALCIUM 9.7 mg/dL (8.5-10.1); CREATININE 0.6 mg/dL (0.55-1.3); POTASSIUM 4.4 mmol/L (3.5-5.1)
[2020-05-19] MEDS: DAPTOMYCIN 500 MG in SODIUM CHLORIDE 50 ML IVPB SCH (16:12)
--- NOTE | 2020-05-19 16:27 | PN ---
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, Physician History of Present Illness: Pt the same, afebrile. WBC trending up. - Current Medication List Current Medications: Active Medications Acetaminophen (Tylenol -) 650 mg PO Q6H PRN PRN Reason: Fever Last Admin: 05/18/20 16:47 Dose: 650 mg Documented by: Amino Acids (Prosource No Carb Liquid Pkt) 30 ml PO TID [facility] Last Admin: 05/19/20 15:49 Dose: 30 ml Documented by: Amlodipine Besylate (Norvasc -) 5 mg PO DAILY [facility] Last Admin: 05/19/20 10:33 Dose: 5 mg Documented by: Ascorbic Acid (Vitamin C -) 500 mg PO BID [facility] Last Admin: 05/19/20 10:33 Dose: 500 mg Documented by: Aspirin (Asa -) 81 mg PO DAILY [facility] Last Admin: 05/19/20 10:33 Dose: 81 mg Documented by: Atorvastatin Calcium (Lipitor -) 20 mg PO HS [facility] Citalopram Hydrobromide (Celexa -) 20 mg PO HS [facility] Last Admin: 05/18/20 21:01 Dose: 20 mg Documented by: Collagenase (Santyl -) 1 applic TP DAILY [facility]; Protocol Last Admin: 05/19/20 10:34 Dose: Not Given Documented by: Docusate Sodium (Colace Liquid -) 100 mg PO BID [facility] Last Admin: 05/19/20 10:33 Dose: 100 mg Documented by: Fentanyl (Sublimaze Injection -) 25 mcg IVPUSH Q5M PRN PRN Reason: PAIN-PACU ORDER X 4 DOSES ONLY Daptomycin 500 mg/ Sodium (Chloride) 50 mls @ 50 mls/hr IVPB Q24H [facility]; Protocol Last Admin: 05/19/20 16:12 Dose: 50 mls/hr Documented by: Meropenem 1 gm/ Dextrose 100 mls @ 200 mls/hr IVPB Q8H-IV [facility] Last Admin: 05/19/20 10:33 Dose: 200 mls/hr Documented by: Dextrose/Sodium Chloride (D5-1/2ns -) 1,000 mls @ 30 mls/hr IV ASDIR [facility] Last Admin: 05/19/20 00:52 Dose: Not Given Documented by: Mirtazapine (Remeron -) 7.5 mg PO HS [facility] Last Admin: 05/18/20 21:01 Dose: 7.5 mg Documented by: Multivitamins/Minerals (Certavite-Antioxidant Liquid) 15 ml PO DAILY [facility] Last Admin: 05/19/20 10:33 Dose: 15 ml Documented by: Nystatin (Nystatin Oral Suspension -) 500,000 units PO Q6HPO [facility] Last Admin: 05/19/20 12:09 Dose: 500,000 units Documented by: Ondansetron HCl (Zofran Injection) 4 mg IVPUSH Q6H PRN PRN Reason: NAUSEA AND/OR VOMITING Pantoprazole Sodium (Protonix Packets For Oral Suspension -) 40 mg PO ACBK [facility] Last Admin: 05/19/20 06:40 Dose: 40 mg Documented by: Polyethylene Glycol (Miralax (For Daily Use) -) 17 gm PO BID PRN PRN Reason: CONSTIPATION Senna/Docusate Sodium (Pericolace -) 1 tablet PO BID PRN PRN Reason: CONSTIPATION - Objective Vital Signs: Vital Signs Temperature 98.4 F 05/19/20 14:00 Pulse Rate 78 05/19/20 14:00 Respiratory Rate 18 05/19/20 14:00 Blood Pressure 125/56 L 05/19/20 14:00 O2 Sat by Pulse Oximetry (%) 98 05/19/20 10:00 Constitutional: Yes: No Distress Eyes: Yes: Conjunctiva Clear Neck: Yes: Supple Cardiovascular: Yes: Regular Rate and Rhythm Respiratory: Yes: Regular Gastrointestinal: Yes: Normal Bowel Sounds, Soft Wound/Incision: Yes: Dressing Dry and Intact Neurological: Yes: Alert, Oriented Labs: CBC, BMP 05/19/20 11:10 05/19/20 11:10 INR, PTT INR 1.25 (0.83-1.09) H 04/25/20 06:00 Laboratory Last Values WBC 15.5 K/mm3 (4.0-10.0) H 05/19/20 11:10 RBC 3.51 M/mm3 (3.60-5.2) L 05/19/20 11:10 Hgb 9.2 GM/dL (10.7-15.3) L 05/19/20 11:10 Hct 29.3 % (32.4-45.2) L 05/19/20 11:10 MCV 83.4 fl (80-96) 05/19/20 11:10 MCH 26.3 pg (25.7-33.7) 05/19/20 11:10 MCHC 31.5 g/dl (32.0-36.0) L 05/19/20 11:10 RDW 15.5 % (11.6-15.6) 05/19/20 11:10 Plt Count 565 K/MM3 (134-434) H 05/19/20 11:10 MPV 8.5 fl (7.5-11.1) 05/19/20 11:10 Absolute Neuts (auto) 12.8 K/mm3 (1.5-8.0) H 05/19/20 11:10 Total Counted 100 04/23/20 05:40 Neutrophils % 83.0 % (42.8-82.8) H 05/19/20 11:10 Neutrophils % (Manual) 88.9 % (42.8-82.8) H 04/25/20 06:00 Band Neutrophils % 0.0 % 04/25/20 06:00 Lymphocytes % 8.6 % (8-40) D 05/19/20 11:10 Lymphocytes % (Manual) 5.1 % (8-40) L D 04/25/20 06:00 Monocytes % 3.5 % (3.8-10.2) L 05/19/20 11:10 Monocytes % (Manual) 2 % (3.8-10.2) L 04/25/20 06:00 Eosinophils % 4.1 % (0-4.5) 05/19/20 11:10 Eosinophils % (Manual) 1.0 % (0-4.5) 04/25/20 06:00 Basophils % 0.8 % (0-2.0) 05/19/20 11:10 Basophils % (Manual) 0.0 % (0-2.0) 04/25/20 06:00 Myelocytes % (Man) 2 % (0-2) D 04/25/20 06:00 Promyelocytes % (Man) 0 % (0-2) 04/25/20 06:00 Blast Cells % (Manual) 0 % (0-0) 04/25/20 06:00 Nucleated RBC % 0 % (0-0) 05/19/20 11:10 Metamyelocytes 0 % (0-2) 04/25/20 06:00 Hypochromia 2+ 04/25/20 06:00 Platelet Estimate Increased 04/25/20 06:00 Platelet Comment Present 04/12/20 08:40 Polychromasia 1+ 04/25/20 06:00 Poikilocytosis 0 04/25/20 06:00 Anisocytosis 1+ 04/25/20 06:00 Microcytosis 1+ 04/25/20 06:00 Macrocytosis 1+ 04/25/20 06:00 Target Cells 1+ 04/18/20 06:30 Retic Count 0.98 % (0.5-1.5) 04/20/20 05:40 PT with INR 14.80 SEC (9.7-13.0) H 04/25/20 06:00 INR 1.25 (0.83-1.09) H 04/25/20 06:00 PTT (Actin FS) 35.7 SECONDS (25.2-36.5) 04/25/20 06:00 Anticoagulation Therapy No Result Required. 04/20/20 05:48 Puncture Site Right radial 04/20/20 05:48 Patient Temperature No Result Required. 04/20/20 05:48 ABG pH 7.398 (7.350-7.450) 04/20/20 05:48 ABG pCO2 43.50 mmHg (35-45) 04/20/20 05:48 ABG pO2 106.6 mmHg (80-100) H 04/20/20 05:48 ABG HCO3 26.2 mmol/L (22-27) 04/20/20 05:48 ABG O2 Sat (Measured) 97.9 mmHg (95-98) 04/20/20 05:48 ABG O2 Content No Result Required. 04/20/20 05:48 ABG Base Excess 1.2 mmol/L (-2-2) 04/20/20 05:48 Yeyo Test Positive 04/20/20 05:48 Patient On Oxygen Yes 04/20/20 05:48 O2 Delivery Device N/c 04/20/20 05:48 Oxygen Flow Rate 2.5l 04/20/20 05:48 Vent Mode No Result Required. 04/20/20 05:48 Vent Rate No Result Required. 04/20/20 05:48 Mechanical Rate No Result Required. 04/20/20 05:48 PEEP No Result Required. 04/20/20 05:48 Pressure Support Vent No Result Required. 04/20/20 05:48 Sodium 140 mmol/L (136-145) 05/19/20 11:10 Potassium 4.4 mmol/L (3.5-5.1) 05/19/20 11:10 Chloride 105 mmol/L (98-107) 05/19/20 11:10 Carbon Dioxide 28 mmol/L (21-32) 05/19/20 11:10 Anion Gap 7 MMOL/L (8-16) L 05/19/20 11:10 BUN 23.9 mg/dL (7-18) H 05/19/20 11:10 Creatinine 0.6 mg/dL (0.55-1.3) 05/19/20 11:10 Est GFR (CKD-EPI)AfAm 101.18 05/19/20 11:10 Est GFR (CKD-EPI)NonAf 87.30 05/19/20 11:10 POC Glucometer 92 UNITS (80-120) 05/15/20 06:05 Random Glucose 92 mg/dL (74-106) 05/19/20 11:10 Hemoglobin A1c % 4.9 % (4.2-6.3) 05/17/20 06:50 Lactic Acid 0.9 mmol/L (0.4-2.0) 04/17/20 12:10 Calcium 9.7 mg/dL (8.5-10.1) 05/19/20 11:10 Phosphorus 3.2 mg/dL (2.5-4.9) 04/30/20 08:18 Magnesium 2.1 mg/dL (1.8-2.4) 05/17/20 06:50 Iron 64 ug/dL (50-175) 04/20/20 05:40 TIBC 108 ug/dL (250-450) L 04/20/20 05:40 Iron Saturation 59 % (17.5-39) H 04/20/20 05:40 Unsaturated IBC 44 ug/dL (200-275) L 04/20/20 05:40 Ferritin 836.1 ng/ml (8-388) H 04/20/20 05:40 Total Bilirubin 0.3 mg/dL (0.2-1) 05/17/20 06:50 AST 39 U/L (15-37) H 05/17/20 06:50 ALT 49 U/L (13-61) 05/17/20 06:50 Alkaline Phosphatase 139 U/L (45-117) H 05/17/20 06:50 Creatine Kinase 99 U/L (26-192) 05/06/20 06:40 Total Protein 7.4 g/dl (6.4-8.2) 05/17/20 06:50 Total Protein (PEP) 5.7 g/dL (6.0-8.5) L 04/20/20 05:40 Albumin 2.0 g/dl (3.4-5.0) L 05/17/20 06:50 Albumin (PEP) 2.2 gm/dl (2.9-4.4) L 04/20/20 05:40 Globulin 3.5 g/dL (2.2-3.9) 04/20/20 05:40 Albumin/Globulin Ratio 0.6 (0.7-1.7) L 04/20/20 05:40 Beta Globulins 0.7 gm/dL (0.7-1.3) 04/20/20 05:40 Triglycerides 220 mg/dL (0-150) H 05/17/20 06:50 Cholesterol 210 mg/dL (50-200) H 05/17/20 06:50 Total LDL Cholesterol 156 mg/dL (5-100) H 05/17/20 06:50 HDL Cholesterol 21 mg/dL (40-60) L 05/17/20 06:50 Total Amylase 120 U/L (25-115) H 04/20/20 05:40 Lipase 264 U/L (73-393) 04/20/20 05:40 Urine Color Yellow 04/17/20 12:05 Urine Appearance Clear 04/17/20 12:05 Urine pH 6.0 (5.0-8.0) 04/17/20 12:05 Ur Specific Pep 1.021 (1.010-1.035) 04/17/20 12:05 Urine Protein Trace (NEGATIVE) 04/17/20 12:05 Urine Glucose (UA) Negative (NEGATIVE) 04/17/20 12:05 Urine Ketones 2+ (NEGATIVE) H 04/17/20 12:05 Urine Blood Negative (NEGATIVE) 04/17/20 12:05 Urine Nitrite Positive (NEGATIVE) H 04/17/20 12:05 Urine Bilirubin Negative (NEGATIVE) 04/17/20 12:05 Urine Urobilinogen 1.0 mg/dL (0.2-1.0) 04/17/20 12:05 Ur Leukocyte Esterase 1+ (NEGATIVE) H 04/17/20 12:05 Urine WBC (Auto) 209 /uL (0-25.8) 04/17/20 12:05 Urine RBC (Auto) 4 /uL (0-23.9) 04/17/20 12:05 Urine Casts (Auto) 17 /uL (0-3.1) 04/17/20 12:05 U Pathogenic Cast Auto Wbc granular casts /lpf (NEGATIVE) 04/17/20 12:05 U Epithel Cells (Auto) 4 /uL (0-25.1) 04/17/20 12:05 Urine Bacteria (Auto) 2252 /uL (0-1359) 04/17/20 12:05 Stool Occult Blood Negative (NEGATIVE) 04/28/20 22:25 Random Vancomycin 11.6 ug/ml (5-26) 04/23/20 05:40 Vancomycin Pre-Dose 26.1 ug/ml (5-10) H 04/21/20 12:40 IAN M-Yasmani Not observed g/dL (Not Observed) 04/20/20 05:40 COVID-19 (ESTER) Not detected (Not Detected) 04/24/20 15:00 Blood Type O POSITIVE 04/24/20 14:45 Antibody Screen Negative 04/24/20 14:45 Crossmatch See Detail 04/24/20 14:45 Microbiology 05/11/20 13:14 Wound Gram Stain - Final 05/11/20 13:14 Wound Wound Culture - Final NO GROWTH AFTER 48 HOURS INCUBATION 05/11/20 13:15 Wound Gram Stain - Final 05/11/20 13:15 Wound Wound Culture - Final NO GROWTH AFTER 48 HOURS INCUBATION 04/28/20 22:45 Stool Gram Stain - Final 04/28/20 22:45 Stool Clostridioides difficile Antigen - Final 04/28/20 22:45 Stool Clostridioides difficile Toxin Assay - Final 04/25/20 16:29 Back Gram Stain - Final 04/25/20 16:29 Back Wound Culture - Final Staphylococcus Coagulase Neg 04/23/20 13:12 Back Gram Stain - Final 04/23/20 13:12 Back Wound Culture - Final Pseudomonas Aeruginosa Vr Ec Faecalis 04/19/20 10:18 Blood - Peripheral Venous Blood Culture - Final NO GROWTH AFTER 5 DAYS INCUBATION 04/19/20 10:11 Blood - Peripheral Venous Blood Culture - Final NO GROWTH AFTER 5 DAYS INCUBATION 04/20/20 15:08 Back Gram Stain - Final 04/20/20 15:08 Back Wound Culture - Final Escherichia Coli Vr Ec Faecalis 04/18/20 17:34 Wound Gram Stain - Final 04/18/20 17:34 Wound Wound Culture - Final Vr Ec Faecalis Escherichia Coli Citrobacter Murliniae 04/17/20 12:14 Blood - Peripheral Venous Blood Culture - Final Non Lactose Fermenting Gnb 04/17/20 12:05 Urine - Urine - Catheterized Urine Culture - Final Pseudomonas Aeruginosa 04/17/20 12:10 Blood - Peripheral Venous Blood Culture - Final Escherichia Coli Problem List - Problems (1) Severe sepsis Code(s): A41.9 - SEPSIS, UNSPECIFIED ORGANISM; R65.20 - SEVERE SEPSIS WITHOUT SEPTIC SHOCK (2) Bacteremia due to Gram-negative bacteria Code(s): R78.81 - BACTEREMIA (3) Status post spinal surgery Code(s): Z98.890 - OTHER SPECIFIED POSTPROCEDURAL STATES (4) Toxic metabolic encephalopathy Code(s): G92 - TOXIC ENCEPHALOPATHY (5) Urinary tract infection Code(s): N39.0 - URINARY TRACT INFECTION, SITE NOT SPECIFIED Qualifiers: Urinary tract infection type: site unspecified Hematuria presence: without hematuria Qualified Code(s): N39.0 - Urinary tract infection, site not s pecified Assessment/Plan Severe Sepsis - resolved Gram negative/E. 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 , if continues to increase send Urine/Blood cultures/CXR -- continue Meropenem/Daptomycin IV -- repeat CPK (monitor weekly) -- Orthopedics following continue monitoring, wound care
[2020-05-19] MEDS: MIRTAZAPINE 15 MG TABLET (FP) PO SCH (21:38)
[2020-05-19] MEDS: CITALOPRAM HYDROBROMIDE 20 MG TABLET PO SCH (21:38)
[2020-05-20] MEDS ORDERED: DEXTROSE 5%-WATER 100 ML IVPB ONE ×3 (00:43→18:30)
[2020-05-20] MEDS ORDERED: MEROPENEM 1 GM VIAL (RESTRICTED TO ID) IVPB ONE ×3 (00:43→18:30)
[2020-05-20] MEDS: MEROPENEM 1 GM in DEXTROSE 5%-WATER 100 ML IVPB SCH ×3 (01:04→18:42)
[2020-05-20] MEDS: PANTOPRAZOLE SOD 40 MG SUSPENSION PACKET PO SCH (06:34)
[2020-05-20] MEDS: NYSTATIN 500,000 UNITS/5 ML SUSPENSION PO SCH ×4 (06:34→23:56)
[2020-05-20] MEDS: AMINO ACIDS/PROTEIN HYDROLYS 30 ML LIQUID.PKT PO SCH ×3 (06:34→16:43)
[2020-05-20 07:57] LABS: BASO % 0.4 % (0-2.0); EOS % 3.7 % (0-4.5); HEMATOCRIT 28.4 % (32.4-45.2); HEMOGLOBIN 9.2 GM/dL (10.7-15.3); LYMPH % 7.6 % (8-40); MCHC 32.4 g/dl (32.0-36.0); MEAN CELL VOLUME 83.3 fl (80-96); MEAN PLT VOLUME 8.2 fl (7.5-11.1); NEUT % 84.3 % (42.8-82.8); PLATELET COUNT 561 K/MM3 (134-434); RBC 3.41 M/mm3 (3.60-5.2); RDW 15.7 % (11.6-15.6); WHITE BLOOD COUNT 17.7 K/mm3 (4.0-10.0)
[2020-05-20 08:33] LABS: BLOOD UREA NITROGEN 20.8 mg/dL (7-18); CALCIUM 9.8 mg/dL (8.5-10.1); CREATININE 0.6 mg/dL (0.55-1.3); POTASSIUM 4.3 mmol/L (3.5-5.1)
[2020-05-20] MEDS: COLLAGENASE CLOSTRIDIUM HIST. 30 GRAMS TUBE TP SCH (10:00)
[2020-05-20] MEDS ORDERED: PT OWN MED DRAWER 7, Y5N ONE (10:09)
[2020-05-20] MEDS: ASCORBIC ACID 500 MG TABLET (FP) PO SCH ×2 (10:26→21:58)
[2020-05-20] MEDS: MULTIVIT-MINERALS ORAL LIQUID PO SCH (10:27)
[2020-05-20] MEDS: amLODIPine BESYLATE 5 MG TABLET (FP) PO SCH (10:27)
[2020-05-20] MEDS: DOCUSATE NA 100 MG/10 ML UNIT-DOSE CUPS PO SCH ×2 (10:27→21:59)
[2020-05-20] MEDS: ASPIRIN 81 MG CHEWABLE TABLETS PO SCH (10:27)
--- NOTE | 2020-05-20 11:47 | PN ---
Physical Exam: SUBJECTIVE: Patient seen and examined 05/20/20: Pt awake and alert, states she feels tired, denies any cp,s ob, n/v; some back pain; tele: SR 80's OBJECTIVE: Vital Signs Period Temp Pulse Resp BP Sys/Lepe Pulse Ox Last 24 Hr 97.7 F-98.4 F 78-109 18-20 125-155/56-81 97-99 GENERAL: The patient is awake, alert, and fully oriented, in no acute distress. HEAD: Normal with no signs of trauma. EYES: PERRL, extraocular movements intact, sclera anicteric, conjunctiva clear. No ptosis. ENT: Ears normal, nares patent, oropharynx clear without exudates, moist mucous membranes. NECK: Trachea midline, full range of motion, supple. LUNGS: Breath sounds equal, clear to auscultation bilaterally, no wheezes, no crackles, no accessory muscle use. bs griffin HEART: Regular rate and rhythm, S1, S2 without murmur, rub or gallop. ABDOMEN: Soft, nontender, nondistended, normoactive bowel sounds, no guarding, no rebound, no hepatosplenomegaly, no masses. EXTREMITIES: 2+ pulses, warm, well-perfused, no edema. NEUROLOGICAL: Cranial nerves II through XII grossly intact. Normal speech, gait not observed. NOE SARAVIA motor strength weakness 3-4/5 BACK: not observed, was unable to roll over - per RN, dressing c/d/i with wound vac in place PSYCH: Normal mood, normal affect. SKIN: Warm, dry, normal turgor, no rashes or lesions noted Laboratory Results - last 24 hr 05/19/20 05/19/20 05/20/20 11:10 11:10 07:16 WBC 15.5 H 17.7 H RBC 3.51 L 3.41 L Hgb 9.2 L 9.2 L Hct 29.3 L 28.4 L MCV 83.4 83.3 MCH 26.3 27.0 MCHC 31.5 L 32.4 RDW 15.5 15.7 H Plt Count 565 H 561 H MPV 8.5 8.2 Absolute Neuts (auto) 12.8 H 15.0 H Neutrophils % 83.0 H 84.3 H Lymphocytes % 8.6 D 7.6 L Monocytes % 3.5 L 4.0 Eosinophils % 4.1 3.7 Basophils % 0.8 0.4 Nucleated RBC % 0 0 Sodium 140 Potassium 4.4 Chloride 105 Carbon Dioxide 28 Anion Gap 7 L BUN 23.9 H Creatinine 0.6 Est GFR (CKD-EPI)AfAm 101.18 Est GFR (CKD-EPI)NonAf 87.30 Random Glucose 92 Calcium 9.7 05/20/20 07:16 WBC RBC Hgb Hct MCV MCH MCHC RDW Plt Count MPV Absolute Neuts (auto) Neutrophils % Lymphocytes % Monocytes % Eosinophils % Basophils % Nucleated RBC % Sodium 139 Potassium 4.3 Chloride 103 Carbon Dioxide 26 Anion Gap 9 BUN 20.8 H Creatinine 0.6 Est GFR (CKD-EPI)AfAm 101.18 Est GFR (CKD-EPI)NonAf 87.30 Random Glucose 94 Calcium 9.8 Active Medications Generic Name Dose Route Start Last Admin Trade Name Freq PRN Reason Stop Dose Admin Acetaminophen 650 mg 05/16/20 20:58 05/18/20 16:47 Tylenol - PO 650 mg Q6H PRN Administration Fever Amino Acids 30 ml 05/20/20 01:07 05/20/20 10:26 Prosource No Carb Liquid Pkt PO 30 ml TIDAC JAYE Administration Amlodipine Besylate 5 mg 05/17/20 10:00 05/20/20 10:27 Norvasc - PO 5 mg DAILY JAYE Administration Ascorbic Acid 500 mg 05/16/20 22:00 05/20/20 10:26 Vitamin C - PO 500 mg BID JAYE Administration Aspirin 81 mg 05/17/20 10:00 05/20/20 10:27 Asa - PO 81 mg DAILY JAYE Administration Atorvastatin Calcium 20 mg 05/16/20 22:00 Lipitor - PO HS JAYE Citalopram Hydrobromide 20 mg 05/16/20 22:00 05/19/20 21:38 Celexa - PO 20 mg HS JAYE Administration Collagenase 1 applic 05/17/20 10:00 05/19/20 10:34 Santyl - TP Not Given DAILY [facility] Protocol Docusate Sodium 100 mg 05/18/20 11:15 05/20/20 10:27 Colace Liquid - PO 100 mg BID JAYE Administration Fentanyl 25 mcg 05/16/20 20:58 Sublimaze Injection - IVPUSH Q5M PRN PAIN-PACU ORDER X 4 DOSES ONLY Daptomycin 500 mg/ Sodium 50 mls @ 50 mls/hr 05/17/20 16:00 05/19/20 16:12 Chloride IVPB 50 mls/hr Q24H JAYE Administration Protocol Meropenem 1 gm/ Dextrose 100 mls @ 200 mls/hr 05/17/20 02:00 05/20/20 10:26 IVPB 200 mls/hr Q8H-IV JAYE Administration Dextrose/Sodium Chloride 1,000 mls @ 30 mls/hr 05/16/20 23:15 05/19/20 23:47 D5-1/2ns - IV Not Given ASDIR JAYE Mirtazapine 7.5 mg 05/16/20 22:00 05/19/20 21:38 Remeron - PO 7.5 mg HS JAYE Administration Multivitamins/Minerals 15 ml 05/17/20 10:00 05/20/20 10:27 Certavite-Antioxidant Liquid PO 15 ml DAILY JAYE Administration Nystatin 500,000 units 05/18/20 18:00 05/20/20 06:34 Nystatin Oral Suspension - PO 500,000 units Q6HPO JAYE Administration Ondansetron HCl 4 mg 05/16/20 20:58 Zofran Injection IVPUSH Q6H PRN NAUSEA AND/OR VOMITING Pantoprazole Sodium 40 mg 05/17/20 07:00 05/20/20 06:34 Protonix Packets For Oral Suspension - PO 40 mg ACBK JAYE Administration Polyethylene Glycol 17 gm 05/16/20 20:58 Miralax (For Daily Use) - PO BID PRN CONSTIPATION Senna/Docusate Sodium 1 tablet 05/16/20 20:58 Pericolace - PO BID PRN CONSTIPATION ASSESSMENT/PLAN: 79-year-old female history of hypertension, dementia depression spinal stenosis underwent L3 5 spinal surgery 8 years ago that got infected, admitted at [facility] underwent hardware removal of L3-L5 hardware, including L4-L5 intervertebral cage, L3-S1 laminectomy, L5-S1 PLIF, L3-S1 posterior instrumented spinal fusion. On April 09, 2020 at [facility] subsequently had a prolonged complicated hospital course developed Pseudomonas UTI, E. coli sepsis and VRE and E. coli in the wound, currently on daptomycin and meropenem as per ID recommendation, patient remained afebrile, considering deconditioning and poor nutrition evaluated by speech and swallow recommended PEG placement but family refused, currently on pured diet, cleared by orthopedic to discharge to subacute rehab.Left UE weakness noted w/u shows small post periventricular infarct transfer to tele for stroke w/u . 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 coli and E. coli bacteremia Code(s): A41.9 - SEPSIS, UNSPECIFIED ORGANISM; R65.20 - SEVERE SEPSIS WITHOUT SEPTIC SHOCK (3) Hypertension Assessment/Plan: BP running high, will increase noravsc to 10mg daily Code(s): I10 - ESSENTIAL (PRIMARY) HYPERTENSION (4) Depression Assessment/Plan: At present stable continue current management No acute issues Code(s): F32.9 - MAJOR DEPRESSIVE DISORDER, SINGLE EPISODE, UNSPECIFIED (5) Status post spinal surgery Assessment/Plan: Infected continue daptomycin and meropenem, wound VAC in place hemorrhagic serosanguineous discharge, surgeon wants to do skin flap and wound wash, con sidering acute ischemic stroke , requires neurology clearance prior to surgery. Code(s): Z98.890 - OTHER SPECIFIED POSTPROCEDURAL STATES (6) Failure to thrive Assessment/Plan: Patient has poor p.o. intake, with low albumin, speech and swallow evaluated recommended PEG placement but patient refused, currently on pured diet continue nutrition consult. Calorie count. 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 Code(s): F03.90 - UNSPECIFIED DEMENTIA WITHOUT BEHAVIORAL DISTURBANCE (10) Thrombocytosis Assessment/Plan: Most likely reactive due to croup chronic infection and insomnia Problems reviewed: Yes Code(s): D47.3 - ESSENTIAL (HEMORRHAGIC) THROMBOCYTHEMIA Problem List - Problems (1) Bacteremia due to Gram-negative bacteria Code(s): R78.81 - BACTEREMIA (2) Postprocedural state Code(s): Z98.890 - OTHER SPECIFIED POSTPROCEDURAL STATES (3) Dementia Code(s): F03.90 - UNSPECIFIED DEMENTIA WITHOUT BEHAVIORAL DISTURBANCE Visit type - Emergency Visit Emergency Visit: Yes ED Registration Date: 04/09/20 Care time: The patient presented to the Emergency Department on the above date and was hospitalized for further evaluation of their emergent condition. - New Patient This patient is new to me today: Yes Date on this admission: 05/20/20 - Critical Care Critical Care patient: No - Discharge Referral Referred to [facility] No - Medication Review Med list reviewed for High Risk Meds patients 65 and older: Yes (with rn)
[2020-05-20] MEDS: DAPTOMYCIN 500 MG in SODIUM CHLORIDE 50 ML IVPB SCH (16:43)
[2020-05-20] MEDS: ACETAMINOPHEN 325 MG TABLET (FP) PO PRN (16:44)
--- NOTE | 2020-05-20 18:57 | PN ---
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, Physician History of Present Illness: Pt is alert and fully responsive. Remains afebrile. Denies abd pain, no diarrhea, no SOB/cough. States she feels well but occasionally weak. - Current Medication List Current Medications: Active Medications Acetaminophen (Tylenol -) 650 mg PO Q6H PRN PRN Reason: Fever Last Admin: 05/20/20 16:44 Dose: 650 mg Documented by: Amino Acids (Prosource No Carb Liquid Pkt) 30 ml PO TIDAC [facility] Last Admin: 05/20/20 16:43 Dose: 30 ml Documented by: Amlodipine Besylate (Norvasc -) 10 mg PO DAILY [facility] Ascorbic Acid (Vitamin C -) 500 mg PO BID [facility] Last Admin: 05/20/20 10:26 Dose: 500 mg Documented by: Aspirin (Asa -) 81 mg PO DAILY [facility] Last Admin: 05/20/20 10:27 Dose: 81 mg Documented by: Atorvastatin Calcium (Lipitor -) 20 mg PO HS [facility] Citalopram Hydrobromide (Celexa -) 20 mg PO HS [facility] Last Admin: 05/19/20 21:38 Dose: 20 mg Documented by: Collagenase (Santyl -) 1 applic TP DAILY [facility]; Protocol Last Admin: 05/20/20 10:00 Dose: Not Given Documented by: Docusate Sodium (Colace Liquid -) 100 mg PO BID [facility] Last Admin: 05/20/20 10:27 Dose: 100 mg Documented by: Fentanyl (Sublimaze Injection -) 25 mcg IVPUSH Q5M PRN PRN Reason: PAIN-PACU ORDER X 4 DOSES ONLY Daptomycin 500 mg/ Sodium (Chloride) 50 mls @ 50 mls/hr IVPB Q24H [facility]; Protocol Last Admin: 05/20/20 16:43 Dose: 50 mls/hr Documented by: Meropenem 1 gm/ Dextrose 100 mls @ 200 mls/hr IVPB Q8H-IV [facility] Last Admin: 05/20/20 18:42 Dose: 200 mls/hr Documented by: Dextrose/Sodium Chloride (D5-1/2ns -) 1,000 mls @ 30 mls/hr IV ASDIR [facility] Last Admin: 05/19/20 23:47 Dose: Not Given Documented by: Mirtazapine (Remeron -) 7.5 mg PO HS [facility] Last Admin: 05/19/20 21:38 Dose: 7.5 mg Documented by: Multivitamins/Minerals (Certavite-Antioxidant Liquid) 15 ml PO DAILY [facility] Last Admin: 05/20/20 10:27 Dose: 15 ml Documented by: Nystatin (Nystatin Oral Suspension -) 500,000 units PO Q6HPO [facility] Last Admin: 05/20/20 18:42 Dose: 500,000 units Documented by: Ondansetron HCl (Zofran Injection) 4 mg IVPUSH Q6H PRN PRN Reason: NAUSEA AND/OR VOMITING Pantoprazole Sodium (Protonix Packets For Oral Suspension -) 40 mg PO ACBK [facility] Last Admin: 05/20/20 06:34 Dose: 40 mg Documented by: Polyethylene Glycol (Miralax (For Daily Use) -) 17 gm PO BID PRN PRN Reason: CONSTIPATION Senna/Docusate Sodium (Pericolace -) 1 tablet PO BID PRN PRN Reason: CONSTIPATION - Objective Vital Signs: Vital Signs Temperature 98.5 F 05/20/20 14:00 Pulse Rate 91 H 05/20/20 14:00 Respiratory Rate 18 05/20/20 14:00 Blood Pressure 140/60 05/20/20 14:00 O2 Sat by Pulse Oximetry (%) 97 05/20/20 10:00 Constitutional: Yes: No Distress, Calm Cardiovascular: Yes: Regular Rate and Rhythm Respiratory: Yes: CTA Bilaterally Gastrointestinal: Yes: Normal Bowel Sounds, Soft Genitourinary: Yes: [place] Present Wound/Incision: Yes: Other (wound vac on spinal wound) Neurological: Yes: Alert Labs: CBC, BMP 05/20/20 07:16 05/20/20 07:16 INR, PTT INR 1.25 (0.83-1.09) H 04/25/20 06:00 Laboratory Last Values WBC 17.7 K/mm3 (4.0-10.0) H 05/20/20 07:16 RBC 3.41 M/mm3 (3.60-5.2) L 05/20/20 07:16 Hgb 9.2 GM/dL (10.7-15.3) L 05/20/20 07:16 Hct 28.4 % (32.4-45.2) L 05/20/20 07:16 MCV 83.3 fl (80-96) 05/20/20 07:16 MCH 27.0 pg (25.7-33.7) 05/20/20 07:16 MCHC 32.4 g/dl (32.0-36.0) 05/20/20 07:16 RDW 15.7 % (11.6-15.6) H 05/20/20 07:16 Plt Count 561 K/MM3 (134-434) H 05/20/20 07:16 MPV 8.2 fl (7.5-11.1) 05/20/20 07:16 Absolute Neuts (auto) 15.0 K/mm3 (1.5-8.0) H 05/20/20 07:16 Total Counted 100 04/23/20 05:40 Neutrophils % 84.3 % (42.8-82.8) H 05/20/20 07:16 Neutrophils % (Manual) 88.9 % (42.8-82.8) H 04/25/20 06:00 Band Neutrophils % 0.0 % 04/25/20 06:00 Lymphocytes % 7.6 % (8-40) L 05/20/20 07:16 Lymphocytes % (Manual) 5.1 % (8-40) L D 04/25/20 06:00 Monocytes % 4.0 % (3.8-10.2) 05/20/20 07:16 Monocytes % (Manual) 2 % (3.8-10.2) L 04/25/20 06:00 Eosinophils % 3.7 % (0-4.5) 05/20/20 07:16 Eosinophils % (Manual) 1.0 % (0-4.5) 04/25/20 06:00 Basophils % 0.4 % (0-2.0) 05/20/20 07:16 Basophils % (Manual) 0.0 % (0-2.0) 04/25/20 06:00 Myelocytes % (Man) 2 % (0-2) D 04/25/20 06:00 Promyelocytes % (Man) 0 % (0-2) 04/25/20 06:00 Blast Cells % (Manual) 0 % (0-0) 04/25/20 06:00 Nucleated RBC % 0 % (0-0) 05/20/20 07:16 Metamyelocytes 0 % (0-2) 04/25/20 06:00 Hypochromia 2+ 04/25/20 06:00 Platelet Estimate Increased 04/25/20 06:00 Platelet Comment Present 04/12/20 08:40 Polychromasia 1+ 04/25/20 06:00 Poikilocytosis 0 04/25/20 06:00 Anisocytosis 1+ 04/25/20 06:00 Microcytosis 1+ 04/25/20 06:00 Macrocytosis 1+ 04/25/20 06:00 Target Cells 1+ 04/18/20 06:30 Retic Count 0.98 % (0.5-1.5) 04/20/20 05:40 PT with INR 14.80 SEC (9.7-13.0) H 04/25/20 06:00 INR 1.25 (0.83-1.09) H 04/25/20 06:00 PTT (Actin FS) 35.7 SECONDS (25.2-36.5) 04/25/20 06:00 Anticoagulation Therapy No Result Required. 04/20/20 05:48 Puncture Site Right radial 04/20/20 05:48 Patient Temperature No Result Required. 04/20/20 05:48 ABG pH 7.398 (7.350-7.450) 04/20/20 05:48 ABG pCO2 43.50 mmHg (35-45) 04/20/20 05:48 ABG pO2 106.6 mmHg (80-100) H 04/20/20 05:48 ABG HCO3 26.2 mmol/L (22-27) 04/20/20 05:48 ABG O2 Sat (Measured) 97.9 mmHg (95-98) 04/20/20 05:48 ABG O2 Content No Result Required. 04/20/20 05:48 ABG Base Excess 1.2 mmol/L (-2-2) 04/20/20 05:48 Yeyo Test Positive 04/20/20 05:48 Patient On Oxygen Yes 04/20/20 05:48 O2 Delivery Device N/c 04/20/20 05:48 Oxygen Flow Rate 2.5l 04/20/20 05:48 Vent Mode No Result Required. 04/20/20 05:48 Vent Rate No Result Required. 04/20/20 05:48 Mechanical Rate No Result Required. 04/20/20 05:48 PEEP No Result Required. 04/20/20 05:48 Pressure Support Vent No Result Required. 04/20/20 05:48 Sodium 139 mmol/L (136-145) 05/20/20 07:16 Potassium 4.3 mmol/L (3.5-5.1) 05/20/20 07:16 Chloride 103 mmol/L (98-107) 05/20/20 07:16 Carbon Dioxide 26 mmol/L (21-32) 05/20/20 07:16 Anion Gap 9 MMOL/L (8-16) 05/20/20 07:16 BUN 20.8 mg/dL (7-18) H 05/20/20 07:16 Creatinine 0.6 mg/dL (0.55-1.3) 05/20/20 07:16 Est GFR (CKD-EPI)AfAm 101.18 05/20/20 07:16 Est GFR (CKD-EPI)NonAf 87.30 05/20/20 07:16 POC Glucometer 92 UNITS (80-120) 05/15/20 06:05 Random Glucose 94 mg/dL (74-106) 05/20/20 07:16 Hemoglobin A1c % 4.9 % (4.2-6.3) 05/17/20 06:50 Lactic Acid 0.9 mmol/L (0.4-2.0) 04/17/20 12:10 Calcium 9.8 mg/dL (8.5-10.1) 05/20/20 07:16 Phosphorus 3.2 mg/dL (2.5-4.9) 04/30/20 08:18 Magnesium 2.1 mg/dL (1.8-2.4) 05/17/20 06:50 Iron 64 ug/dL (50-175) 04/20/20 05:40 TIBC 108 ug/dL (250-450) L 04/20/20 05:40 Iron Saturation 59 % (17.5-39) H 04/20/20 05:40 Unsaturated IBC 44 ug/dL (200-275) L 04/20/20 05:40 Ferritin 836.1 ng/ml (8-388) H 04/20/20 05:40 Total Bilirubin 0.3 mg/dL (0.2-1) 05/17/20 06:50 AST 39 U/L (15-37) H 05/17/20 06:50 ALT 49 U/L (13-61) 05/17/20 06:50 Alkaline Phosphatase 139 U/L (45-117) H 05/17/20 06:50 Creatine Kinase 99 U/L (26-192) 05/06/20 06:40 Total Protein 7.4 g/dl (6.4-8.2) 05/17/20 06:50 Total Protein (PEP) 5.7 g/dL (6.0-8.5) L 04/20/20 05:40 Albumin 2.0 g/dl (3.4-5.0) L 05/17/20 06:50 Albumin (PEP) 2.2 gm/dl (2.9-4.4) L 04/20/20 05:40 Globulin 3.5 g/dL (2.2-3.9) 04/20/20 05:40 Albumin/Globulin Ratio 0.6 (0.7-1.7) L 04/20/20 05:40 Beta Globulins 0.7 gm/dL (0.7-1.3) 04/20/20 05:40 Triglycerides 220 mg/dL (0-150) H 05/17/20 06:50 Cholesterol 210 mg/dL (50-200) H 05/17/20 06:50 Total LDL Cholesterol 156 mg/dL (5-100) H 05/17/20 06:50 HDL Cholesterol 21 mg/dL (40-60) L 05/17/20 06:50 Total Amylase 120 U/L (25-115) H 04/20/20 05:40 Lipase 264 U/L (73-393) 04/20/20 05:40 Urine Color Yellow 04/17/20 12:05 Urine Appearance Clear 04/17/20 12:05 Urine pH 6.0 (5.0-8.0) 04/17/20 12:05 Ur Specific Linch 1.021 (1.010-1.035) 04/17/20 12:05 Urine Protein Trace (NEGATIVE) 04/17/20 12:05 Urine Glucose (UA) Negative (NEGATIVE) 04/17/20 12:05 Urine Ketones 2+ (NEGATIVE) H 04/17/20 12:05 Urine Blood Negative (NEGATIVE) 04/17/20 12:05 Urine Nitrite Positive (NEGATIVE) H 04/17/20 12:05 Urine Bilirubin Negative (NEGATIVE) 04/17/20 12:05 Urine Urobilinogen 1.0 mg/dL (0.2-1.0) 04/17/20 12:05 Ur Leukocyte Esterase 1+ (NEGATIVE) H 04/17/20 12:05 Urine WBC (Auto) 209 /uL (0-25.8) 04/17/20 12:05 Urine RBC (Auto) 4 /uL (0-23.9) 04/17/20 12:05 Urine Casts (Auto) 17 /uL (0-3.1) 04/17/20 12:05 U Pathogenic Cast Auto Wbc granular casts /lpf (NEGATIVE) 04/17/20 12:05 U Epithel Cells (Auto) 4 /uL (0-25.1) 04/17/20 12:05 Urine Bacteria (Auto) 2252 /uL (0-1359) 04/17/20 12:05 Stool Occult Blood Negative (NEGATIVE) 04/28/20 22:25 Random Vancomycin 11.6 ug/ml (5-26) 04/23/20 05:40 Vancomycin Pre-Dose 26.1 ug/ml (5-10) H 04/21/20 12:40 IAN M-Yasmani Not observed g/dL (Not Observed) 04/20/20 05:40 COVID-19 (ESTER) Not detected (Not Detected) 04/24/20 15:00 Blood Type O POSITIVE 04/24/20 14:45 Antibody Screen Negative 04/24/20 14:45 Crossmatch See Detail 04/24/20 14:45 Microbiology 05/11/20 13:14 Wound Gram Stain - Final 05/11/20 13:14 Wound Wound Culture - Final NO GROWTH AFTER 48 HOURS INCUBATION 05/11/20 13:15 Wound Gram Stain - Final 05/11/20 13:15 Wound Wound Culture - Final NO GROWTH AFTER 48 HOURS INCUBATION 04/28/20 22:45 Stool Gram Stain - Final 04/28/20 22:45 Stool Clostridioides difficile Antigen - Final 04/28/20 22:45 Stool Clostridioides difficile Toxin Assay - Final 04/25/20 16:29 Back Gram Stain - Final 04/25/20 16:29 Back Wound Culture - Final Staphylococcus Coagulase Neg 04/23/20 13:12 Back Gram Stain - Final 04/23/20 13:12 Back Wound Culture - Final Pseudomonas Aeruginosa Vr Ec Faecalis 04/19/20 10:18 Blood - Peripheral Venous Blood Culture - Final NO GROWTH AFTER 5 DAYS INCUBATION 04/19/20 10:11 Blood - Peripheral Venous Blood Culture - Final NO GROWTH AFTER 5 DAYS INCUBATION 04/20/20 15:08 Back Gram Stain - Final 04/20/20 15:08 Back Wound Culture - Final Escherichia Coli Vr Ec Faecalis 04/18/20 17:34 Wound Gram Stain - Final 04/18/20 17:34 Wound Wound Culture - Final Vr Ec Faecalis Escherichia Coli Citrobacter Murliniae 04/17/20 12:14 Blood - Peripheral Venous Blood Culture - Final Non Lactose Fermenting Gnb 04/17/20 12:05 Urine - Urine - Catheterized Urine Culture - Final Pseudomonas Aeruginosa 04/17/20 12:10 Blood - Peripheral Venous Blood Culture - Final Escherichia Coli - ....Imaging Chest X-ray: Report Reviewed Problem List - Problems (1) Severe sepsis Code(s): A41.9 - SEPSIS, UNSPECIFIED ORGANISM; R65.20 - SEVERE SEPSIS WITHOUT SEPTIC SHOCK (2) Bacteremia due to Gram-negative bacteria Code(s): R78.81 - BACTEREMIA (3) Status post spinal surgery Code(s): Z98.890 - OTHER SPECIFIED POSTPROCEDURAL STATES (4) Toxic metabolic encephalopathy Code(s): G92 - TOXIC ENCEPHALOPATHY (5) Urinary tract infection Code(s): N39.0 - URINARY TRACT INFECTION, SITE NOT SPECIFIED Qualifiers: Urinary tract infection type: site unspecified Hematuria presence: without hematuria Qualified Code(s): N39.0 - Urinary tract infection, site not specified Assessment/Plan Severe Sepsis - resolved Gram negative/E. coli Bacteremia Pseudomonas UTI Wound infection s/p lumbar wound I+D, s/p washout - Pseudomonas/VRE on previous wound cultures Leukocytosis -- pt stable/afebrile -- wbc trending up - (elevated/fluctuating since admission), follow up blood and urine cultures sent -- CXR with ? LLL infiltrate, pt without symptoms of PNA, vitals stable -- continue Meropenem/Daptomycin IV for now, repeat cbc -- repeat CPK (needs weekly monitoring) -- Orthopedics following -- wound vac in place
[2020-05-20] MEDS: CITALOPRAM HYDROBROMIDE 20 MG TABLET PO SCH (21:58)
[2020-05-20] MEDS: MIRTAZAPINE 15 MG TABLET (FP) PO SCH (21:58)
[2020-05-20] MEDS: DEXTROSE 5%-0.45% SALINE 1,000 ML IV SCH (23:56)
[2020-05-21] MEDS ORDERED: MEROPENEM 1 GM VIAL (RESTRICTED TO ID) IVPB ONE ×3 (01:16→16:48)
[2020-05-21] MEDS ORDERED: DEXTROSE 5%-WATER 100 ML IVPB ONE ×3 (01:16→16:48)
[2020-05-21] MEDS: MEROPENEM 1 GM in DEXTROSE 5%-WATER 100 ML IVPB SCH ×3 (01:32→17:12)
[2020-05-21] MEDS: DEXTROSE 5%-0.45% SALINE 1,000 ML IV SCH ×2 (01:32→23:00)
[2020-05-21] MEDS: NYSTATIN 500,000 UNITS/5 ML SUSPENSION PO SCH ×4 (06:02→23:51)
[2020-05-21] MEDS: AMINO ACIDS/PROTEIN HYDROLYS 30 ML LIQUID.PKT PO SCH ×3 (06:02→15:35)
[2020-05-21] MEDS: PANTOPRAZOLE SOD 40 MG SUSPENSION PACKET PO SCH (06:03)
[2020-05-21 08:18] LABS: BASO % 0.5 % (0-2.0); EOS % 4.9 % (0-4.5); HEMATOCRIT 29.7 % (32.4-45.2); HEMOGLOBIN 9.7 GM/dL (10.7-15.3); LYMPH % 9.9 % (8-40); MCH 26.4 pg (25.7-33.7); MCHC 32.5 g/dl (32.0-36.0); MEAN CELL VOLUME 81.2 fl (80-96); MEAN PLT VOLUME 8.4 fl (7.5-11.1); MONO % 4.8 % (3.8-10.2); NEUT % 79.9 % (42.8-82.8); PLATELET COUNT 586 K/MM3 (134-434); RBC 3.65 M/mm3 (3.60-5.2); RDW 15.5 % (11.6-15.6); WHITE BLOOD COUNT 14.7 K/mm3 (4.0-10.0)
--- NOTE | 2020-05-21 09:42 | PN ---
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, [employer] - Note 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: Selected Entries 05/19/20 05/19/20 05/20/20 06:00 14:00 14:00 Breakfast 25% 25% Diet Tolerated Fair Fair Fair Lunch 50% 50% Supper 25% Temperature Pulse Rate Blood Pressure 05/20/20 05/20/20 05/21/20 18:00 23:00 02:00 Breakfast Diet Tolerated Poor Poor Lunch Supper Temperature 98.0 F Pulse Rate 70 Blood Pressure 160/76 05/21/20 06:00 Breakfast Diet Tolerated Lunch Supper Temperature 97.8 F Pulse Rate 80 Blood Pressure 158/72 Laboratory Tests 05/20/20 05/21/20 07:16 06:36 WBC 17.7 H 14.7 H Ongoing minimal appetite and not eating well despite encouragement of staff. Full code. Suggested PEG placement to supplement PO intake but family refused. Readdress PEG for improved nutition, hydration, wound healing
[2020-05-21] MEDS ORDERED: PT OWN MED DRAWER 7, Y5N ONE ×2 (09:45→16:24)
[2020-05-21] MEDS: amLODIPine BESYLATE 10 MG TABLET (FP) PO SCH (09:46)
[2020-05-21] MEDS: DOCUSATE NA 100 MG/10 ML UNIT-DOSE CUPS PO SCH ×2 (09:46→22:21)
[2020-05-21] MEDS: MULTIVIT-MINERALS ORAL LIQUID PO SCH (09:46)
[2020-05-21] MEDS: COLLAGENASE CLOSTRIDIUM HIST. 30 GRAMS TUBE TP SCH (09:46)
[2020-05-21] MEDS: ASCORBIC ACID 500 MG TABLET (FP) PO SCH ×2 (09:46→22:21)
[2020-05-21] MEDS: ASPIRIN 81 MG CHEWABLE TABLETS PO SCH (09:46)
--- NOTE | 2020-05-21 14:49 | PN ---
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, Physician History of Present Illness: left sided infarct/lacunar left sided weakness - Current Medication List Current Medications: Active Medications Acetaminophen (Tylenol -) 650 mg PO Q6H PRN PRN Reason: Fever Last Admin: 05/20/20 16:44 Dose: 650 mg Documented by: Amino Acids (Prosource No Carb Liquid Pkt) 30 ml PO TIDAC [facility] Last Admin: 05/21/20 11:31 Dose: 30 ml Documented by: Amlodipine Besylate (Norvasc -) 10 mg PO DAILY [facility] Last Admin: 05/21/20 09:46 Dose: 10 mg Documented by: Ascorbic Acid (Vitamin C -) 500 mg PO BID [facility] Last Admin: 05/21/20 09:46 Dose: 500 mg Documented by: Aspirin (Asa -) 81 mg PO DAILY [facility] Last Admin: 05/21/20 09:46 Dose: 81 mg Documented by: Atorvastatin Calcium (Lipitor -) 20 mg PO [facility] Citalopram Hydrobromide (Celexa -) 20 mg PO HS [facility] Last Admin: 05/20/20 21:58 Dose: 20 mg Documented by: Collagenase (Santyl -) 1 applic TP DAILY [facility]; Protocol Last Admin: 05/21/20 09:46 Dose: Not Given Documented by: Docusate Sodium (Colace Liquid -) 100 mg PO BID [facility] Last Admin: 05/21/20 09:46 Dose: 100 mg Documented by: Fentanyl (Sublimaze Injection -) 25 mcg IVPUSH Q5M PRN PRN Reason: PAIN-PACU ORDER X 4 DOSES ONLY Daptomycin 500 mg/ Sodium (Chloride) 50 mls @ 50 mls/hr IVPB Q24H [facility]; Protocol Last Admin: 05/20/20 16:43 Dose: 50 mls/hr Documented by: Meropenem 1 gm/ Dextrose 100 mls @ 200 mls/hr IVPB Q8H-IV [facility] Last Admin: 05/21/20 09:45 Dose: 200 mls/hr Documented by: Dextrose/Sodium Chloride (D5-1/2ns -) 1,000 mls @ 30 mls/hr IV ASDIR [facility] Last Admin: 05/21/20 01:32 Dose: 30 mls/hr Documented by: Mirtazapine (Remeron -) 7.5 mg PO HS [facility] Last Admin: 05/20/20 21:58 Dose: 7.5 mg Documented by: Multivitamins/Minerals (Certavite-Antioxidant Liquid) 15 ml PO DAILY [facility] Last Admin: 05/21/20 09:46 Dose: 15 ml Documented by: Nystatin (Nystatin Oral Suspension -) 500,000 units PO Q6HPO [facility] Last Admin: 05/21/20 11:31 Dose: 500,000 units Documented by: Ondansetron HCl (Zofran Injection) 4 mg IVPUSH Q6H PRN PRN Reason: NAUSEA AND/OR VOMITING Pantoprazole Sodium (Protonix Packets For Oral Suspension -) 40 mg PO ACBK [facility] Last Admin: 05/21/20 06:03 Dose: 40 mg Documented by: Polyethylene Glycol (Miralax (For Daily Use) -) 17 gm PO BID PRN PRN Reason: CONSTIPATION Senna/Docusate Sodium (Pericolace -) 1 tablet PO BID PRN PRN Reason: CONSTIPATION - Objective Vital Signs: Vital Signs Temperature 97.8 F 05/21/20 14:00 Pulse Rate 87 05/21/20 14:00 Respiratory Rate 18 05/21/20 14:00 Blood Pressure 154/70 05/21/20 14:00 O2 Sat by Pulse Oximetry (%) 98 05/21/20 14:00 Constitutional: Yes: No Distress, Calm Cardiovascular: Yes: S1, S2 Respiratory: Yes: Regular, CTA Bilaterally Gastrointestinal: Yes: Normal Bowel Sounds, Soft Musculoskeletal: Yes: WNL Extremities: Yes: Other Neurological: Yes: Alert, Oriented Psychiatric: Yes: Alert, Oriented Labs: CBC, BMP 05/21/20 06:36 05/20/20 07:16 INR, PTT INR 1.25 (0.83-1.09) H 04/25/20 06:00 Assessment/Plan Problem List - Problems (1) Severe sepsis Code(s): A41.9 - SEPSIS, UNSPECIFIED ORGANISM; R65.20 - SEVERE SEPSIS WITHOUT SEPTIC SHOCK (2) Bacteremia due to Gram-negative bacteria Code(s): R78.81 - BACTEREMIA (3) Status post spinal surgery Code(s): Z98.890 - OTHER SPECIFIED POSTPROCEDURAL STATES (4) Toxic metabolic encephalopathy Code(s): G92 - TOXIC ENCEPHALOPATHY (5) Urinary tract infection Code(s): N39.0 - URINARY TRACT INFECTION, SITE NOT SPECIFIED Qualifiers: Urinary tract infection type: site unspecified Hematuria presence: without hematuria Qualified Code(s): N39.0 - Urinary tract infection, site not specified Assessment/Plan 79 y.o. female with PMH of dementia, HTN, depression, lumbar stenosis s/p laminectomy, neuropathy who underwent removal of L3-L5 hardware, L3-S1 laminectomies, L5-S1 PLIF/L3-S1 PSIF on 04/09/20 and noted to develop fever up to 101.8F and increase in wbc to 16.8K along with lethargy and mild hypotension Severe Sepsis Gram negative/E. coli Bacteremia Pseudomonas UTI s/p lumbar wound I+D, s/p washout/wound vac placement plan ct current mgmt abx wound care rest as per the team complete the abx course patient needs another 4 weeks
--- NOTE | 2020-05-21 17:28 | PN ---
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, Physician Chief Complaint: no complaints 24HR events no significant interval change WBCs downtrending History of Present Illness: 80-year-old female history of hypertension, dementia depression spinal stenosis underwent L3 5 spinal surgery 8 years ago that got infected, admitted at [facility] underwent hardware removal of L3-L5 hardware, including L4-L5 intervertebral cage, L3-S1 laminectomy, L5-S1 PLIF, L3-S1 posterior instrumented spinal fusion. On April 09, 2020 at [facility] subsequently had a prolonged complicated hospital course developed Pseudomonas UTI, E. coli sepsis and VRE and E. coli in the wound, currently on daptomycin and meropenem as per ID recommendation, patient remained afebrile, considering deconditioning and poor nutrition evaluated by speech and swallow recommended PEG placement but family refused, currently on pured diet, cleared by orthopedic to discharge to subacute rehab.Left UE weakness noted w/u shows small post periventricular infarct transfer to [facility] for stroke w/u . 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 on compliance monitor, carotid Doppler shows intimal thickening and atherosclerosis no gross obstruction, now with rising wbc while on abx - Current Medication List Current Medications: Active Medications Acetaminophen (Tylenol -) 650 mg PO Q6H PRN PRN Reason: Fever Last Admin: 05/20/20 16:44 Dose: 650 mg Documented by: Amino Acids (Prosource No Carb Liquid Pkt) 30 ml PO TIDAC [facility] Last Admin: 05/21/20 15:35 Dose: 30 ml Documented by: Amlodipine Besylate (Norvasc -) 10 mg PO DAILY [facility] Last Admin: 05/21/20 09:46 Dose: 10 mg Documented by: Ascorbic Acid (Vitamin C -) 500 mg PO BID [facility] Last Admin: 05/21/20 09:46 Dose: 500 mg Documented by: Aspirin (Asa -) 81 mg PO DAILY [facility] Last Admin: 05/21/20 09:46 Dose: 81 mg Documented by: Atorvastatin Calcium (Lipitor -) 20 mg PO HS [facility] Citalopram Hydrobromide (Celexa -) 20 mg PO HS [facility] Last Admin: 05/20/20 21:58 Dose: 20 mg Documented by: Collagenase (Santyl -) 1 applic TP DAILY [facility]; Protocol Last Admin: 05/21/20 09:46 Dose: Not Given Documented by: Docusate Sodium (Colace Liquid -) 100 mg PO BID [facility] Last Admin: 05/21/20 09:46 Dose: 100 mg Documented by: Fentanyl (Sublimaze Injection -) 25 mcg IVPUSH Q5M PRN PRN Reason: PAIN-PACU ORDER X 4 DOSES ONLY Daptomycin 500 mg/ Sodium (Chloride) 50 mls @ 50 mls/hr IVPB Q24H [facility]; Protocol Last Admin: 05/20/20 16:43 Dose: 50 mls/hr Documented by: Meropenem 1 gm/ Dextrose 100 mls @ 200 mls/hr IVPB Q8H-IV [facility] Last Admin: 05/21/20 17:12 Dose: 200 mls/hr Documented by: Dextrose/Sodium Chloride (D5-1/2ns -) 1,000 mls @ 30 mls/hr IV ASDIR [facility] Last Admin: 05/21/20 01:32 Dose: 30 mls/hr Documented by: Mirtazapine (Remeron -) 7.5 mg PO HS [facility] Last Admin: 05/20/20 21:58 Dose: 7.5 mg Documented by: Multivitamins/Minerals (Certavite-Antioxidant Liquid) 15 ml PO DAILY [facility] Last Admin: 05/21/20 09:46 Dose: 15 ml Documented by: Nystatin (Nystatin Oral Suspension -) 500,000 units PO Q6HPO [facility] Last Admin: 05/21/20 17:12 Dose: 500,000 units Documented by: Ondansetron HCl (Zofran Injection) 4 mg IVPUSH Q6H PRN PRN Reason: NAUSEA AND/OR VOMITING Pantoprazole Sodium (Protonix Packets For Oral Suspension -) 40 mg PO ACBK [facility] Last Admin: 05/21/20 06:03 Dose: 40 mg Documented by: Polyethylene Glycol (Miralax (For Daily Use) -) 17 gm PO BID PRN PRN Reason: CONSTIPATION Senna/Docusate Sodium (Pericolace -) 1 tablet PO BID PRN PRN Reason: CONSTIPATION - Objective Vital Signs: Vital Signs Temperature 97.8 F 05/21/20 14:00 Pulse Rate 87 05/21/20 14:00 Respiratory Rate 18 05/21/20 14:00 Blood Pressure 154/70 05/21/20 14:00 O2 Sat by Pulse Oximetry (%) 98 05/21/20 14:00 Constitutional: Yes: Calm, Thin Eyes: Yes: Conjunctiva Clear HENT: Yes: Atraumatic Neck: Yes: Supple Cardiovascular: Yes: Regular Rate and Rhythm Respiratory: Yes: Regular Gastrointestinal: Yes: Soft Musculoskeletal: Yes: Joint Stiffness, Muscle Weakness Edema: Yes Edema: LLE: Trace, RLE: Trace Peripheral Pulses: Left Radial: 2+, Right Radial: 2+ Integumentary: Yes: Pressure Ulcer (heels b/l) Neurological: Yes: Alert ...Motor Strength: LUE (muscle strength significantly reduced in all 4 extremities), LLE, RUE, RLE Psychiatric: Yes: Alert Labs: CBC, BMP 05/21/20 06:36 05/20/20 07:16 INR, PTT INR 1.25 (0.83-1.09) H 04/25/20 06:00 - ....Imaging X-ray: Report Reviewed (CXR 05/20/20 A single view of the chest has been submitted. Since the prior study of 05/14/2020 at 1138 hours, the right lung appears better aerated but there is still suggestion of a left base infiltrate. The remainder of the study is unchanged. Correlation recommended. For more complete evaluation, CT may be of help. Reported By: Isaac Walls MD 05/20/20 1276) Problem List - Problems (1) Discharge planning issues Assessment/Plan: pt needs subacute rehab, however, there is impedence with planning due to strain with the family and care team Code(s): Z02.9 - ENCOUNTER FOR ADMINISTRATIVE EXAMINATIONS, UNSPECIFIED Impression/Plan Impression/Plan: (1) Bacteremia due to Gram-negative bacteria Assessment/Plan: On meropenem and daptomycin duration of antibiotic as per ID, e coli bacteremia trend WBC and temp curve Code(s): R78.81 - BACTEREMIA (2) Hypertension Assessment/Plan: noravsc to 10mg daily Code(s): I10 - ESSENTIAL (PRIMARY) HYPERTENSION (3) Depression Assessment/Plan: continue celexa and remeron Code(s): F32.9 - MAJOR DEPRESSIVE DISORDER, SINGLE EPISODE, UNSPECIFIED (4) Status post spinal surgery Assessment/Plan: Infected continue daptomycin and meropenem, wound VAC in place hemorrhagic serosanguineous discharge, surgeon wants to do skin flap and wound wash, considering acute ischemic stroke , requires neurology clearance prior to surgery. Code(s): Z98.890 - OTHER SPECIFIED POSTPROCEDURAL STATES (6) Failure to thrive Assessment/Plan: Patient has poor p.o. intake, with low albumin, speech and swallow evaluated recommended PEG placement but family refused, currently on pured diet continue nutrition consult. Calorie count. Code(s): APL6541 - (7) Left-sided weakness Assessment/Plan: left sided weakness noted w/u shows(MRI) multiple chronic ischemic changes and small Rt Post Periventricular lacunar infarct, ASA, Statin, Code(s): R53.1 - WEAKNESS (8) prophylaxis Assessment/Plan: SCD for DVT prophylaxis, recent spine surgery with wound drain in place Start sq heparin once ok with spine Bowel regimen- senna/colace PPI daily nystatin oral soln MVI daily Code(s): Z29.9 - ENCOUNTER FOR PROPHYLACTIC MEASURES, UNSPECIFIED Visit type - Emergency Visit Emergency Visit: Yes ED Registration Date: 04/09/20 Care time: The patient presented to the Emergency Department on the above date and was hospitalized for further evaluation of their emergent condition. - New Patient This patient is new to me today: Yes Date on this admission: 05/21/20 - Critical Care Critical Care patient: No - Discharge Referral Referred to [facility] No - Medication Review Med list reviewed for High Risk Meds patients 65 and older: Yes
[2020-05-21] MEDS: DAPTOMYCIN 500 MG in SODIUM CHLORIDE 50 ML IVPB SCH (17:48)
[2020-05-21] MEDS: CITALOPRAM HYDROBROMIDE 20 MG TABLET PO SCH (22:21)
[2020-05-21] MEDS: MIRTAZAPINE 15 MG TABLET (FP) PO SCH (22:21)
[2020-05-21] MEDS: ACETAMINOPHEN 325 MG TABLET (FP) PO PRN (22:21)
[2020-05-22] MEDS ORDERED: MEROPENEM 1 GM VIAL (RESTRICTED TO ID) IVPB ONE ×3 (01:38→17:16)
[2020-05-22] MEDS ORDERED: DEXTROSE 5%-WATER 100 ML IVPB ONE ×3 (01:38→17:16)
[2020-05-22] MEDS: MEROPENEM 1 GM in DEXTROSE 5%-WATER 100 ML IVPB SCH ×3 (01:40→17:54)
[2020-05-22] MEDS: NYSTATIN 500,000 UNITS/5 ML SUSPENSION PO SCH ×3 (06:02→17:56)
[2020-05-22] MEDS: AMINO ACIDS/PROTEIN HYDROLYS 30 ML LIQUID.PKT PO SCH ×3 (06:02→17:00)
[2020-05-22] MEDS: PANTOPRAZOLE SOD 40 MG SUSPENSION PACKET PO SCH (06:02)
[2020-05-22 07:23] LABS: BASO % 0.5 % (0-2.0); EOS % 5.2 % (0-4.5); HEMATOCRIT 29.4 % (32.4-45.2); HEMOGLOBIN 9.5 GM/dL (10.7-15.3); LYMPH % 9.1 % (8-40); MCH 26.3 pg (25.7-33.7); MCHC 32.2 g/dl (32.0-36.0); MEAN CELL VOLUME 81.7 fl (80-96); MEAN PLT VOLUME 8.2 fl (7.5-11.1); MONO % 5.5 % (3.8-10.2); NEUT % 79.7 % (42.8-82.8); PLATELET COUNT 538 K/MM3 (134-434); RDW 15.6 % (11.6-15.6); WHITE BLOOD COUNT 15.4 K/mm3 (4.0-10.0)
[2020-05-22 07:33] LABS: BILIRUBIN,TOTAL 0.7 mg/dL (0.2-1); BLOOD UREA NITROGEN 18.4 mg/dL (7-18); CALCIUM 9.8 mg/dL (8.5-10.1); CREATININE 0.6 mg/dL (0.55-1.3); POTASSIUM 4.5 mmol/L (3.5-5.1); TOT PROT 7.1 g/dl (6.4-8.2)
--- NOTE | 2020-05-22 08:21 | PN ---
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 (short form) - Note 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: Patient remains in a debilitated state.Legaly blind General status APYREXIAL but WCC elevated and Alb remains low 2 Status post revision spinal surgery for spinal stenosis and previous hardware failure.Post op wound dehissence. Treated with I and D in OR with repeat wound vac and IV antibiotics. Nutritional intake suboptimal and gastric peg feeding tube suggested was declined before. Wound VAC lumbar spine in situ Working well. Wound requires repeated Iand D and reinsertion of VAC Cannot do this under general anaesthesia due to the recent cerebral infarction and hemiplegia This confirmed with the anaesthesia department Planned rotation flap with Dr Soriano plastic surgery delayed due to the CVA. Was planning on the latter last Thursday. PLAN Nursing staff will provide me information today re nutritionand food intake. If continues to be suboptimal then for peg tube and concomitant Lumbar I and D and placement of new VAC to be done under GA but we need the OK from anesthesia colleagues. If anesthesia absolutely contraindicated then to consider type feeding tube and bedside wound vac change.The wound closure will be expedited by closing the cavity with a local wound rotation flap and delayed primary closure but if GA remains contraindicated the wound to be managed with delayed primary closure. This itself will take 2 to 3 moths to close with daily wound care. This combined with stroke rehab will be best managed in a subacute nursing facility. Continue general medical and nursing management with PT Attempt at getting her out of bed. Will review with anesthesia, Infectious disease and plastic surgeons
[2020-05-22] MEDS ORDERED: PT OWN MED DRAWER 7, Y5N ONE (09:35)
[2020-05-22] MEDS: DOCUSATE NA 100 MG/10 ML UNIT-DOSE CUPS PO SCH ×2 (09:44→21:44)
[2020-05-22] MEDS: MULTIVIT-MINERALS ORAL LIQUID PO SCH (09:44)
[2020-05-22] MEDS: amLODIPine BESYLATE 10 MG TABLET (FP) PO SCH (09:45)
[2020-05-22] MEDS: ASPIRIN 81 MG CHEWABLE TABLETS PO SCH (09:45)
[2020-05-22] MEDS: ASCORBIC ACID 500 MG TABLET (FP) PO SCH ×2 (09:45→21:44)
--- NOTE | 2020-05-22 11:19 | PN ---
Physical Exam: SUBJECTIVE: Patient seen and examined. awake, alert and participating in physical therapy. OBJECTIVE: patient with left sided weakness and found to have an acute lunar infarct. Patient is a 80 year old female with a history of hypertension, dementia, depression, spinal stenosis, neuropathy she is s/p removal of L3-L5 hardware, including L4-L5 intervertebral cage, L3-S1 laminectomy, L5-S1 PLIF, L3-S1 posterior instrumented spinal fusion. She is s/p multiple washouts for infected hardware. Patient was noted to have left upper ext weakness and brain mri shows small post periventricular infarct. She was transferred to [facility]. 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 on monitoring and evaluation advisor, carotid Doppler shows intimal thickening and atherosclerosis no gross obstruction. she remains on IV antibiotics and WBC remains elevated. Period Temp Pulse Resp BP Sys/Lepe Pulse Ox Last 24 Hr 97.8 F-99.4 F 86-99 18-20 136-154/56-82 98-99 GENERAL: awake, weak appearing, answers questions. hx of dementia but lucid, legally blind HEAD: Normal with no signs of trauma. EYES: PERRL, extraocular movements intact, sclera anicteric, conjunctiva clear. No ptosis. ENT: Ears normal, nares patent, oropharynx clear without exudates NECK: Trachea midline, full range of motion, supple. LUNGS: lungs diminished at the bases., tolerating room air. SPINE: surgical dressing changes per surgery HEART: Regular rate and rhythm ABDOMEN: Soft, nontender, nondistended, normoactive bowel sounds, no guarding EXTREMITIES: no edema. unstageable wound of right heel. elevate heels on pillows - left hand contracted NEUROLOGICAL: Normal speech, gait not observed. PSYCH: calm, cooperative Laboratory Results - last 24 hr 05/22/20 05/22/20 05:59 05:59 WBC 15.4 H RBC 3.60 Hgb 9.5 L Hct 29.4 L MCV 81.7 MCH 26.3 MCHC 32.2 RDW 15.6 Plt Count 538 H MPV 8.2 Absolute Neuts (auto) 12.3 H Neutrophils % 79.7 Lymphocytes % 9.1 Monocytes % 5.5 Eosinophils % 5.2 H Basophils % 0.5 Nucleated RBC % 0 Sodium 138 Potassium 4.5 Chloride 103 Carbon Dioxide 27 Anion Gap 7 L BUN 18.4 H Creatinine 0.6 Est GFR (CKD-EPI)AfAm 101.18 Est GFR (CKD-EPI)NonAf 87.30 Random Glucose 88 Calcium 9.8 Total Bilirubin 0.7 AST 26 ALT 28 Alkaline Phosphatase 128 H Total Protein 7.1 Albumin 2.0 L Active Medications Generic Name Dose Route Start Last Admin Trade Name Freq PRN Reason Stop Dose Admin Acetaminophen 650 mg 05/16/20 20:58 05/21/20 22:21 Tylenol - PO 650 mg Q6H PRN Administration Fever Amino Acids 30 ml 05/20/20 01:07 05/22/20 06:02 Prosource No Carb Liquid Pkt PO 30 ml TIDAC [facility] Administration Amlodipine Besylate 10 mg 05/21/20 10:00 05/22/20 09:45 Norvasc - PO 10 mg DAILY [facility] Administration Ascorbic Acid 500 mg 05/16/20 22:00 05/22/20 09:45 Vitamin C - PO 500 mg BID [facility] Administration Aspirin 81 mg 05/17/20 10:00 05/22/20 09:45 Asa - PO 81 mg DAILY [facility] Administration Atorvastatin Calcium 20 mg 05/16/20 22:00 Lipitor - PO HS [facility] Citalopram Hydrobromide 20 mg 05/16/20 22:00 05/21/20 22:21 Celexa - PO 20 mg HS [facility] Administration Collagenase 1 applic 05/17/20 10:00 05/21/20 09:46 Santyl - TP Not Given DAILY [facility] Protocol Docusate Sodium 100 mg 05/18/20 11:15 05/22/20 09:44 Colace Liquid - PO 100 mg BID [facility] Administration Fentanyl 25 mcg 05/16/20 20:58 Sublimaze Injection - IVPUSH Q5M PRN PAIN-PACU ORDER X 4 DOSES ONLY Daptomycin 500 mg/ Sodium 50 mls @ 50 mls/hr 05/17/20 16:00 05/21/20 17:48 Chloride IVPB 50 mls/hr Q24H [facility] Administration Protocol Meropenem 1 gm/ Dextrose 100 mls @ 200 mls/hr 05/17/20 02:00 05/22/20 09:44 IVPB 200 mls/hr Q8H-IV [facility] Administration Dextrose/Sodium Chloride 1,000 mls @ 30 mls/hr 05/16/20 23:15 05/21/20 23:00 D5-1/2ns - IV Not Given ASDIR [facility] Mirtazapine 7.5 mg 05/16/20 22:00 05/21/20 22:21 Remeron - PO 7.5 mg HS [facility] Administration Multivitamins/Minerals 15 ml 05/17/20 10:00 05/22/20 09:44 Certavite-Antioxidant Liquid PO 15 ml DAILY [facility] Administration Nystatin 500,000 units 05/18/20 18:00 05/22/20 06:02 Nystatin Oral Suspension - PO 500,000 units Q6HPO [facility] Administration Ondansetron HCl 4 mg 05/16/20 20:58 Zofran Injection IVPUSH Q6H PRN NAUSEA AND/OR VOMITING Pantoprazole Sodium 40 mg 05/17/20 07:00 05/22/20 06:02 Protonix Packets For Oral Suspension - PO 40 mg ACBK [facility] Administration Polyethylene Glycol 17 gm 05/16/20 20:58 Miralax (For Daily Use) - PO BID PRN CONSTIPATION Senna/Docusate Sodium 1 tablet 05/16/20 20:58 Pericolace - PO BID PRN CONSTIPATION ASSESSMENT/PLAN: Problem List - Problems (1) CVA (cerebral vascular accident) Assessment/Plan: recent infarct seen on brain mri 05/16/2020. on asa, statin therapy (statin being held since it interferes with daptomycin) physical therapy evaluation speech and swallow following aspiration precautions neurology following Code(s): I63.9 - CEREBRAL INFARCTION, UNSPECIFIED (2) Severe sepsis Assessment/Plan: spinal stenosis. s/p removal of L3-L5 hardware, including L4-L5 intervertebral cage, L3-S1 laminectomy, L5-S1 PLIF, L3-S1 posterior instrumented spinal fusion. s/p multiple washouts. on daptomycin and meropenem per ID per ID, patient will need apx 6 weeks of antibiotics via picc line patient s/p washout 05/12/2020 monitor vitals, labs, mental status Code(s): A41.9 - SEPSIS, UNSPECIFIED ORGANISM; R65.20 - SEVERE SEPSIS WITHOUT SEPTIC SHOCK (3) Unstageable pressure ulcer of right heel Assessment/Plan: unstageable right heel pressure ulcer, purple in color, round. patient denies pain. plan to continue to: - elevate heels at all times. - add santyl daily - vascular evaluated, notes reviewed - monitor wound daily Code(s): L89.610 - PRESSURE ULCER OF RIGHT HEEL, UNSTAGEABLE (4) Poor appetite Assessment/Plan: patient reported to have a poor appetite. peg tube refused before, but being again recommended per surgery to help with wound healing. Code(s): R63.0 - ANOREXIA (5) Toxic metabolic encephalopathy Assessment/Plan: mental status has improved patient noted to have an acute stroke per brain mri 05/16/2020 Code(s): G92 - TOXIC ENCEPHALOPATHY (6) Status post spinal surgery Assessment/Plan: Wound culture from 04/23/2020 grew pseudomonas resistant to zosyn and VRE sentivie to daptomycin. Continue daptomycin and meropenem. ID following monitor WBC, fevers, vitals Code(s): Z98.890 - OTHER SPECIFIED POSTPROCEDURAL STATES (7) At risk for dehydration due to poor fluid intake Assessment/Plan: as per nurse, patient is a total feed and needs encouragement to eat and drink. She is on supplements and being followed by an RD peg tube was declined by family and patient previously. Code(s): Z91.89 - OTH PERSONAL RISK FACTORS, NOT ELSEWHERE CLASSIFIED (8) DVT prophylaxis Assessment/Plan: SCDs heparin once spine surgeon clears Code(s): Z29.9 - ENCOUNTER FOR PROPHYLACTIC MEASURES, UNSPECIFIED (9) Prophylactic measure Assessment/Plan: fen monitor electrolytes dietary following full code Code(s): Z29.9 - ENCOUNTER FOR PROPHYLACTIC MEASURES, UNSPECIFIED Visit type - Emergency Visit Emergency Visit: Yes ED Registration Date: 04/09/20 Care time: The patient presented to the Emergency Department on the above date and was hospitalized for further evaluation of their emergent condition. - New Patient This patient is new to me today: No - Critical Care Critical Care patient: No - Discharge Referral Referred to [facility] Med [facility].C[facility] No - Medication Review Med list reviewed for High Risk Meds patients 65 and older: Yes
--- NOTE | 2020-05-22 12:26 | PN ---
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, Physician History of Present Illness: left sided infarct/lacunar left sided weakness - Current Medication List Current Medications: Active Medications Acetaminophen (Tylenol -) 650 mg PO Q6H PRN PRN Reason: Fever Last Admin: 05/21/20 22:21 Dose: 650 mg Documented by: Amino Acids (Prosource No Carb Liquid Pkt) 30 ml PO TIDAC [facility] Last Admin: 05/22/20 06:02 Dose: 30 ml Documented by: Amlodipine Besylate (Norvasc -) 10 mg PO DAILY [facility] Last Admin: 05/22/20 09:45 Dose: 10 mg Documented by: Ascorbic Acid (Vitamin C -) 500 mg PO BID [facility] Last Admin: 05/22/20 09:45 Dose: 500 mg Documented by: Aspirin (Asa -) 81 mg PO DAILY [facility] Last Admin: 05/22/20 09:45 Dose: 81 mg Documented by: Atorvastatin Calcium (Lipitor -) 20 mg PO [facility] Citalopram Hydrobromide (Celexa -) 20 mg PO HS [facility] Last Admin: 05/21/20 22:21 Dose: 20 mg Documented by: Collagenase (Santyl -) 1 applic TP DAILY [facility]; Protocol Last Admin: 05/21/20 09:46 Dose: Not Given Documented by: Docusate Sodium (Colace Liquid -) 100 mg PO BID [facility] Last Admin: 05/22/20 09:44 Dose: 100 mg Documented by: Fentanyl (Sublimaze Injection -) 25 mcg IVPUSH Q5M PRN PRN Reason: PAIN-PACU ORDER X 4 DOSES ONLY Daptomycin 500 mg/ Sodium (Chloride) 50 mls @ 50 mls/hr IVPB Q24H [facility]; Protocol Last Admin: 05/21/20 17:48 Dose: 50 mls/hr Documented by: Meropenem 1 gm/ Dextrose 100 mls @ 200 mls/hr IVPB Q8H-IV [facility] Last Admin: 05/22/20 09:44 Dose: 200 mls/hr Documented by: Dextrose/Sodium Chloride (D5-1/2ns -) 1,000 mls @ 30 mls/hr IV ASDIR [facility] Last Admin: 05/21/20 23:00 Dose: Not Given Documented by: Mirtazapine (Remeron -) 7.5 mg PO HS [facility] Last Admin: 05/21/20 22:21 Dose: 7.5 mg Documented by: Multivitamins/Minerals (Certavite-Antioxidant Liquid) 15 ml PO DAILY [facility] Last Admin: 05/22/20 09:44 Dose: 15 ml Documented by: Nystatin (Nystatin Oral Suspension -) 500,000 units PO Q6HPO [facility] Last Admin: 05/22/20 06:02 Dose: 500,000 units Documented by: Ondansetron HCl (Zofran Injection) 4 mg IVPUSH Q6H PRN PRN Reason: NAUSEA AND/OR VOMITING Pantoprazole Sodium (Protonix Packets For Oral Suspension -) 40 mg PO ACBK [facility] Last Admin: 05/22/20 06:02 Dose: 40 mg Documented by: Polyethylene Glycol (Miralax (For Daily Use) -) 17 gm PO BID PRN PRN Reason: CONSTIPATION Senna/Docusate Sodium (Pericolace -) 1 tablet PO BID PRN PRN Reason: CONSTIPATION - Objective Vital Signs: Vital Signs Temperature 98.5 F 05/22/20 10:00 Pulse Rate 92 H 05/22/20 10:00 Respiratory Rate 20 05/22/20 10:00 Blood Pressure 137/82 05/22/20 10:00 O2 Sat by Pulse Oximetry (%) 98 05/22/20 10:00 Constitutional: Yes: No Distress, Calm Cardiovascular: Yes: S1, S2 Respiratory: Yes: Regular, CTA Bilaterally Gastrointestinal: Yes: Normal Bowel Sounds, Soft Musculoskeletal: Yes: WNL Extremities: Yes: Other (left sided weakness) Neurological: Yes: Alert Labs: CBC, BMP 05/22/20 05:59 05/22/20 05:59 INR, PTT INR 1.25 (0.83-1.09) H 04/25/20 06:00 Assessment/Plan Problem List - Problems (1) Severe sepsis Code(s): A41.9 - SEPSIS, UNSPECIFIED ORGANISM; R65.20 - SEVERE SEPSIS WITHOUT SEPTIC SHOCK (2) Bacteremia due to Gram-negative bacteria Code(s): R78.81 - BACTEREMIA (3) Status post spinal surgery Code(s): Z98.890 - OTHER SPECIFIED POSTPROCEDURAL STATES (4) Toxic metabolic encephalopathy Code(s): G92 - TOXIC ENCEPHALOPATHY (5) Urinary tract infection Code(s): N39.0 - URINARY TRACT INFECTION, SITE NOT SPECIFIED Qualifiers: Urinary tract infection type: site unspecified Hematuria presence: without hematuria Qualified Code(s): N39.0 - Urinary tract infection, site not specified Assessment/Plan 79 y.o. female with PMH of dementia, HTN, depression, lumbar stenosis s/p laminectomy, neuropathy who underwent removal of L3-L5 hardware, L3-S1 laminectomies, L5-S1 PLIF/L3-S1 PSIF on 04/09/20 and noted to develop fever up to 101.8F and increase in wbc to 16.8K along with lethargy and mild hypotension Severe Sepsis Gram negative/E. coli Bacteremia Pseudomonas UTI s/p lumbar wound I+D, s/p washout/wound vac placement plan ct current mgmt abx wound care rest as per the team complete the abx course patient needs another 4 weeks
[2020-05-22] MEDS: COLLAGENASE CLOSTRIDIUM HIST. 30 GRAMS TUBE TP SCH (15:39)
[2020-05-22] MEDS: DAPTOMYCIN 500 MG in SODIUM CHLORIDE 50 ML IVPB SCH (17:15)
[2020-05-22] MEDS: CITALOPRAM HYDROBROMIDE 20 MG TABLET PO SCH (21:44)
[2020-05-22] MEDS: MIRTAZAPINE 15 MG TABLET (FP) PO SCH (21:44)
[2020-05-22] MEDS: ACETAMINOPHEN 325 MG TABLET (FP) PO PRN (21:45)
[2020-05-23] MEDS: NYSTATIN 500,000 UNITS/5 ML SUSPENSION PO SCH ×5 (00:08→23:04)
[2020-05-23] MEDS ORDERED: DEXTROSE 5%-WATER 100 ML IVPB ONE ×3 (01:23→18:45)
[2020-05-23] MEDS ORDERED: MEROPENEM 1 GM VIAL (RESTRICTED TO ID) IVPB ONE ×3 (01:23→18:45)
[2020-05-23] MEDS: DEXTROSE 5%-0.45% SALINE 1,000 ML IV SCH (01:25)
[2020-05-23] MEDS: MEROPENEM 1 GM in DEXTROSE 5%-WATER 100 ML IVPB SCH ×3 (01:25→18:51)
[2020-05-23] MEDS: AMINO ACIDS/PROTEIN HYDROLYS 30 ML LIQUID.PKT PO SCH ×3 (06:14→17:26)
[2020-05-23] MEDS: PANTOPRAZOLE SOD 40 MG SUSPENSION PACKET PO SCH (06:14)
--- NOTE | 2020-05-23 08:24 | PN ---
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 (short form) - Note 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: Patient no change in clinical condition. Attempt at feeding with one on one nursing poor intake over 24 hrs PLAN Restore to positive nitrogen balance by increasingfood intake. Consult Dr Steinberg re peg tube
--- NOTE | 2020-05-23 10:02 | PN ---
Physical Exam: SUBJECTIVE: Patient seen and examined, tells me that her pain is ok at the moment. denies chest pain. OBJECTIVE: daily weights to closely monitor weight loss. Patient is a 80 year old female with a history of hypertension, dementia, depression, spinal stenosis, neuropathy she is s/p removal of L3-L5 hardware, including L4-L5 intervertebral cage, L3-S1 laminectomy, L5-S1 PLIF, L3-S1 posterior instrumented spinal fusion. She is s/p multiple washouts for infected hardware. Patient was noted to have left upper ext weakness and brain mri shows small post periventricular infarct. She was transferred to [facility]. 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 on monitoring tech, carotid Doppler shows intimal thickening and atherosclerosis no gross obstruction. she remains on IV antibiotics and WBC remains elevated. for possible peg tube placement per surgery leukocytosis elevated at 19 today Period Temp Pulse Resp BP Sys/Lepe Pulse Ox Last 24 Hr 97.9 F-98.9 F 85-97 18-20 138-158/59-79 98-98 GENERAL: awake, weak appearing, answers questions. hx of dementia but lucid, legally blind HEAD: Normal with no signs of trauma. EYES: PERRL, extraocular movements intact, sclera anicteric, conjunctiva clear. No ptosis. ENT: Ears normal, nares patent, oropharynx clear without exudates NECK: Trachea midline, full range of motion, supple. LUNGS: lungs diminished at the bases., tolerating room air. SPINE: surgical dressing changes per spine surgery HEART: Regular rate and rhythm ABDOMEN: Soft, nontender, nondistended, normoactive bowel sounds, no guarding EXTREMITIES: no edema. unstageable wound of right heel. elevate heels on pillows - left hand contracted, able to move right arm, but difficulty moving left arm. NEUROLOGICAL: Normal speech, gait not observed. PSYCH: calm, cooperative Laboratory Results - last 24 hr 05/21/20 14:30 COVID-19 (ESTER) Not detected Active Medications Generic Name Dose Route Start Last Admin Trade Name Freq PRN Reason Stop Dose Admin Acetaminophen 650 mg 05/16/20 20:58 05/22/20 21:45 Tylenol - PO 650 mg Q6H PRN Administration Fever Amino Acids 30 ml 05/20/20 01:07 05/23/20 06:14 Prosource No Carb Liquid Pkt PO 30 ml TIDAC [facility] Administration Amlodipine Besylate 10 mg 05/21/20 10:00 05/22/20 09:45 Norvasc - PO 10 mg DAILY [facility] Administration Ascorbic Acid 500 mg 05/16/20 22:00 05/22/20 21:44 Vitamin C - PO 500 mg BID [facility] Administration Aspirin 81 mg 05/17/20 10:00 05/22/20 09:45 Asa - PO 81 mg DAILY [facility] Administration Atorvastatin Calcium 20 mg 05/16/20 22:00 Lipitor - PO HS [facility] Citalopram Hydrobromide 20 mg 05/16/20 22:00 05/22/20 21:44 Celexa - PO 20 mg HS [facility] Administration Collagenase 1 applic 05/17/20 10:00 05/22/20 15:39 Santyl - TP 1 adh.patch DAILY [facility] Administration Protocol Docusate Sodium 100 mg 05/18/20 11:15 05/22/20 21:44 Colace Liquid - PO 100 mg BID [facility] Administration Fentanyl 25 mcg 05/16/20 20:58 Sublimaze Injection - IVPUSH Q5M PRN PAIN-PACU ORDER X 4 DOSES ONLY Daptomycin 500 mg/ Sodium 50 mls @ 50 mls/hr 05/17/20 16:00 05/22/20 17:15 Chloride IVPB 50 mls/hr Q24H [facility] Administration Protocol Meropenem 1 gm/ Dextrose 100 mls @ 200 mls/hr 05/17/20 02:00 05/23/20 01:25 IVPB 200 mls/hr Q8H-IV [facility] Administration Dextrose/Sodium Chloride 1,000 mls @ 30 mls/hr 05/16/20 23:15 05/23/20 01:25 D5-1/2ns - IV 30 mls/hr ASDIR [facility] Administration Mirtazapine 7.5 mg 05/16/20 22:00 05/22/20 21:44 Remeron - PO 7.5 mg HS [facility] Administration Multivitamins/Minerals 15 ml 05/17/20 10:00 05/22/20 09:44 Certavite-Antioxidant Liquid PO 15 ml DAILY [facility] Administration Nystatin 500,000 units 05/18/20 18:00 08/19/20 06:14 Nystatin Oral Suspension - PO 500,000 units Q6HPO [facility] Administration Ondansetron HCl 4 mg 05/16/20 20:58 Zofran Injection IVPUSH Q6H PRN NAUSEA AND/OR VOMITING Pantoprazole Sodium 40 mg 05/17/20 07:00 05/23/20 06:14 Protonix Packets For Oral Suspension - PO 40 mg ACBK [facility] Administration Polyethylene Glycol 17 gm 05/16/20 20:58 Miralax (For Daily Use) - PO BID PRN CONSTIPATION Senna/Docusate Sodium 1 tablet 05/16/20 20:58 Pericolace - PO BID PRN CONSTIPATION ASSESSMENT/PLAN: Problem List - Problems (1) CVA (cerebral vascular accident) Assessment/Plan: recent infarct seen on brain mri 05/16/2020. on asa, statin therapy (statin being held since it interferes with daptomycin) physical therapy evaluation speech and swallow following aspiration precautions neurology following Code(s): I63.9 - CEREBRAL INFARCTION, UNSPECIFIED (2) Severe sepsis Assessment/Plan: spinal stenosis. s/p removal of L3-L5 hardware, including L4-L5 intervertebral cage, L3-S1 laminectomy, L5-S1 PLIF, L3-S1 posterior instrumented spinal fusion. s/p multiple washouts. on daptomycin and meropenem per ID per ID, patient will need apx 6 weeks of antibiotics via picc line patient s/p washout 05/12/2020 monitor vitals, labs, mental status Code(s): A41.9 - SEPSIS, UNSPECIFIED ORGANISM; R65.20 - SEVERE SEPSIS WITHOUT SEPTIC SHOCK (3) Unstageable pressure ulcer of right heel Assessment/Plan: unstageable right heel pressure ulcer, purple in color, round. patient denies pain. plan to continue to: - elevate heels at all times. - add santyl daily - vascular evaluated, notes reviewed - monitor wound daily Code(s): L89.610 - PRESSURE ULCER OF RIGHT HEEL, UNSTAGEABLE (4) Poor appetite Assessment/Plan: patient reported to have a poor appetite. peg tube refused before, but being again recommended per surgery to help with wound healing. Code(s): R63.0 - ANOREXIA (5) Toxic metabolic encephalopathy Assessment/Plan: mental status has improved patient noted to have an acute stroke per brain mri 05/16/2020 Code(s): G92 - TOXIC ENCEPHALOPATHY (6) Status post spinal surgery Assessment/Plan: Wound culture from 04/23/2020 grew pseudomonas resistant to zosyn and VRE sentivie to daptomycin. Continue daptomycin and meropenem. ID following monitor WBC, fevers, vitals Code(s): Z98.890 - OTHER SPECIFIED POSTPROCEDURAL STATES (7) At risk for dehydration due to poor fluid intake Assessment/Plan: as per nurse, patient is a total feed and needs encouragement to eat and drink. She is on supplements and being followed by an RD peg tube was declined by family and patient previously. Code(s): Z91.89 - OTH PERSONAL RISK FACTORS, NOT ELSEWHERE CLASSIFIED (8) DVT prophylaxis Assessment/Plan: SCDs heparin once spine surgeon clears Code(s): Z29.9 - ENCOUNTER FOR PROPHYLACTIC MEASURES, UNSPECIFIED (9) Prophylactic measure Assessment/Plan: fen monitor electrolytes dietary following full code Code(s): Z29.9 - ENCOUNTER FOR PROPHYLACTIC MEASURES, UNSPECIFIED Visit type - Emergency Visit Emergency Visit: Yes ED Registration Date: 04/09/20 Care time: The patient presented to the Emergency Department on the above date and was hospitalized for further evaluation of their emergent condition. - New Patient This patient is new to me today: No - Critical Care Critical Care patient: No - Discharge Referral Referred to [facility] Med P.C.: No - Medication Review Med list reviewed for High Risk Meds patients 65 and older: Yes
[2020-05-23] MEDS: DOCUSATE NA 100 MG/10 ML UNIT-DOSE CUPS PO SCH ×2 (10:18→21:32)
[2020-05-23] MEDS: ASPIRIN 81 MG CHEWABLE TABLETS PO SCH (10:18)
[2020-05-23] MEDS: amLODIPine BESYLATE 10 MG TABLET (FP) PO SCH (10:18)
[2020-05-23] MEDS: ASCORBIC ACID 500 MG TABLET (FP) PO SCH ×2 (10:18→21:32)
[2020-05-23] MEDS: COLLAGENASE CLOSTRIDIUM HIST. 30 GRAMS TUBE TP SCH (10:18)
[2020-05-23] MEDS ORDERED: PT OWN MED DRAWER 7, Y5N ONE (10:42)
[2020-05-23] MEDS: MULTIVIT-MINERALS ORAL LIQUID PO SCH (10:43)
[2020-05-23 10:47] LABS: BASO % 0.4 % (0-2.0); EOS % 5.1 % (0-4.5); HEMATOCRIT 32.2 % (32.4-45.2); HEMOGLOBIN 10.3 GM/dL (10.7-15.3); LYMPH % 9.7 % (8-40); MCH 26.6 pg (25.7-33.7); MCHC 32.1 g/dl (32.0-36.0); MEAN CELL VOLUME 82.9 fl (80-96); MEAN PLT VOLUME 8.1 fl (7.5-11.1); MONO % 3.9 % (3.8-10.2); NEUT % 80.9 % (42.8-82.8); PLATELET COUNT 589 K/MM3 (134-434); RBC 3.88 M/mm3 (3.60-5.2); WHITE BLOOD COUNT 19.7 K/mm3 (4.0-10.0)
[2020-05-23 11:09] LABS: ALBUMIN 2.2 g/dl (3.4-5.0); BILIRUBIN,TOTAL 0.4 mg/dL (0.2-1); BLOOD UREA NITROGEN 23.5 mg/dL (7-18); CALCIUM 10.1 mg/dL (8.5-10.1); CREATININE 0.7 mg/dL (0.55-1.3); MAGNESIUM 2.2 mg/dL (1.8-2.4); POTASSIUM 4.4 mmol/L (3.5-5.1); TOT PROT 7.9 g/dl (6.4-8.2)
--- NOTE | 2020-05-23 12:06 | PN ---
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, Physician History of Present Illness: wbc increased left sided infarct/lacunar - Current Medication List Current Medications: Active Medications Acetaminophen (Tylenol -) 650 mg PO Q6H PRN PRN Reason: Fever Last Admin: 05/22/20 21:45 Dose: 650 mg Documented by: Amino Acids (Prosource No Carb Liquid Pkt) 30 ml PO TIDAC [facility] Last Admin: 05/23/20 10:43 Dose: 30 ml Documented by: Amlodipine Besylate (Norvasc -) 10 mg PO DAILY [facility] Last Admin: 05/23/20 10:18 Dose: 10 mg Documented by: Ascorbic Acid (Vitamin C -) 500 mg PO BID [facility] Last Admin: 05/23/20 10:18 Dose: 500 mg Documented by: Aspirin (Asa -) 81 mg PO DAILY [facility] Last Admin: 05/23/20 10:18 Dose: 81 mg Documented by: Atorvastatin Calcium (Lipitor -) 20 mg PO HS [facility] Citalopram Hydrobromide (Celexa -) 20 mg PO HS [facility] Last Admin: 05/22/20 21:44 Dose: 20 mg Documented by: Collagenase (Santyl -) 1 applic TP DAILY [facility]; Protocol Last Admin: 05/23/20 10:18 Dose: 1 adh.patch Documented by: Docusate Sodium (Colace Liquid -) 100 mg PO BID [facility] Last Admin: 05/23/20 10:18 Dose: 100 mg Documented by: Daptomycin 500 mg/ Sodium (Chloride) 50 mls @ 50 mls/hr IVPB Q24H [facility]; Protocol Last Admin: 05/22/20 17:15 Dose: 50 mls/hr Documented by: Meropenem 1 gm/ Dextrose 100 mls @ 200 mls/hr IVPB Q8H-IV [facility] Last Admin: 05/23/20 10:18 Dose: 200 mls/hr Documented by: Dextrose/Sodium Chloride (D5-1/2ns -) 1,000 mls @ 30 mls/hr IV ASDIR [facility] Last Admin: 05/23/20 01:25 Dose: 30 mls/hr Documented by: Mirtazapine (Remeron -) 7.5 mg PO HS [facility] Last Admin: 05/22/20 21:44 Dose: 7.5 mg Documented by: Multivitamins/Minerals (Certavite-Antioxidant Liquid) 15 ml PO DAILY [facility] Last Admin: 05/23/20 10:43 Dose: 15 ml Documented by: Nystatin (Nystatin Oral Suspension -) 500,000 units PO Q6HPO [facility] Last Admin: 05/23/20 06:14 Dose: 500,000 units Documented by: Ondansetron HCl (Zofran Injection) 4 mg IVPUSH Q6H PRN PRN Reason: NAUSEA AND/OR VOMITING Oxycodone HCl (Roxicodone -) 5 mg PO Q6H PRN PRN Reason: PAIN LEVEL 7 - 10 Pantoprazole Sodium (Protonix Packets For Oral Suspension -) 40 mg PO ACBK [facility] Last Admin: 05/23/20 06:14 Dose: 40 mg Documented by: Polyethylene Glycol (Miralax (For Daily Use) -) 17 gm PO BID PRN PRN Reason: CONSTIPATION Senna/Docusate Sodium (Pericolace -) 1 tablet PO BID PRN PRN Reason: CONSTIPATION - Objective Vital Signs: Vital Signs Temperature 98.9 F 05/23/20 06:00 Pulse Rate 85 05/23/20 06:00 Respiratory Rate 18 05/23/20 06:00 Blood Pressure 158/79 05/23/20 06:00 O2 Sat by Pulse Oximetry (%) 98 05/22/20 22:00 Constitutional: Yes: No Distress, Calm Cardiovascular: Yes: S1, S2 Respiratory: Yes: Regular, CTA Bilaterally Gastrointestinal: Yes: Normal Bowel Sounds, Soft Musculoskeletal: Yes: Other Wound/Incision: Yes: Dressing Dry and Intact Neurological: Yes: Other (dementia) Labs: CBC, BMP 05/23/20 10:10 05/23/20 10:10 INR, PTT INR 1.25 (0.83-1.09) H 04/25/20 06:00 Assessment/Plan Problem List - Problems (1) Severe sepsis Code(s): A41.9 - SEPSIS, UNSPECIFIED ORGANISM; R65.20 - SEVERE SEPSIS WITHOUT SEPTIC SHOCK (2) Bacteremia due to Gram-negative bacteria Code(s): R78.81 - BACTEREMIA (3) Status post spinal surgery Code(s): Z98.890 - OTHER SPECIFIED POSTPROCEDURAL STATES (4) Toxic metabolic encephalopathy Code(s): G92 - TOXIC ENCEPHALOPATHY (5) Urinary tract infection Code(s): N39.0 - URINARY TRACT INFECTION, SITE NOT SPECIFIED Qualifiers: Urinary tract infection type: site unspecified Hematuria presence: without hematuria Qualified Code(s): N39.0 - Urinary tract infection, site not specified Assessment/Plan 79 y.o. female with PMH of dementia, HTN, depression, lumbar stenosis s/p laminectomy, neuropathy who underwent removal of L3-L5 hardware, L3-S1 laminecto mies, L5-S1 PLIF/L3-S1 PSIF on 04/09/20 and noted to develop fever up to 101.8F and increase in wbc to 16.8K along with lethargy and mild hypotension Severe Sepsis Gram negative/E. coli Bacteremia Pseudomonas UTI s/p lumbar wound I+D, s/p washout/wound vac placement plan ct current mgmt abx wound care rest as per the team complete the abx course patient needs another 4 weeks
--- NOTE | 2020-05-23 12:38 | PN ---
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: Selected Entries 05/19/20 05/19/20 05/20/20 06:00 14:00 14:00 Breakfast 25% 25% Diet Tolerated Fair Fair Fair Lunch 50% 50% Supper 25% Temperature Pulse Rate Blood Pressure 05/20/20 05/20/20 05/21/20 18:00 23:00 02:00 Breakfast Diet Tolerated Poor Poor Lunch Supper Temperature 98.0 F Pulse Rate 70 Blood Pressure 160/76 05/21/20 06:00 Breakfast Diet Tolerated Lunch Supper Temperature 97.8 F Pulse Rate 80 Blood Pressure 158/72 Laboratory Tests 05/20/20 05/21/20 07:16 06:36 WBC 17.7 H 14.7 H Selected Entries 05/22/20 05/22/20 05/23/20 11:06 14:00 01:51 Breakfast 50% Lunch 75% Temperature 98.5 F Pulse Rate 86 Blood Pressure 146/74 05/23/20 06:00 Breakfast Lunch Temperature 98.9 F Pulse Rate 85 Blood Pressure 158/79 Laboratory Tests 05/21/20 05/22/20 05/23/20 06:36 05:59 10:10 WBC 14.7 H 15.4 H 19.7 H Accepting 25-50% with encouragement reviewed with medical team
--- NOTE | 2020-05-23 16:40 | PN ---
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 (short form) - Note 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: Had d/w Dr. Cuenca regarding gastrostomy tube placement for enhanced nutrition to aid in wound healing. Advised consulting IR for G-Tube placement.
[2020-05-23] MEDS: DAPTOMYCIN 500 MG in SODIUM CHLORIDE 50 ML IVPB SCH (17:27)
[2020-05-23] MEDS: oxyCODONE HCL 5 MG TABLET PO PRN (18:59)
[2020-05-23] MEDS: MIRTAZAPINE 15 MG TABLET (FP) PO SCH (21:31)
[2020-05-23] MEDS: CITALOPRAM HYDROBROMIDE 20 MG TABLET PO SCH (21:31)
[2020-05-24] MEDS ORDERED: MEROPENEM 1 GM VIAL (RESTRICTED TO ID) IVPB ONE ×3 (01:17→16:59)
[2020-05-24] MEDS ORDERED: DEXTROSE 5%-WATER 100 ML IVPB ONE ×3 (01:17→16:59)
[2020-05-24] MEDS: DEXTROSE 5%-0.45% SALINE 1,000 ML IV SCH (01:33)
[2020-05-24] MEDS: MEROPENEM 1 GM in DEXTROSE 5%-WATER 100 ML IVPB SCH ×3 (01:33→18:00)
[2020-05-24] MEDS: oxyCODONE HCL 5 MG TABLET PO PRN ×2 (05:09→21:28)
[2020-05-24] MEDS: NYSTATIN 500,000 UNITS/5 ML SUSPENSION PO SCH ×3 (05:09→18:01)
[2020-05-24] MEDS: PANTOPRAZOLE SOD 40 MG SUSPENSION PACKET PO SCH (06:42)
[2020-05-24] MEDS: AMINO ACIDS/PROTEIN HYDROLYS 30 ML LIQUID.PKT PO SCH ×3 (06:42→17:03)
[2020-05-24 08:56] LABS: BASO % 0.5 % (0-2.0); EOS % 7.5 % (0-4.5); HEMATOCRIT 31.8 % (32.4-45.2); HEMOGLOBIN 10.1 GM/dL (10.7-15.3); LYMPH % 8.2 % (8-40); MCH 26.6 pg (25.7-33.7); MCHC 31.8 g/dl (32.0-36.0); MEAN CELL VOLUME 83.5 fl (80-96); MEAN PLT VOLUME 8.1 fl (7.5-11.1); MONO % 4.2 % (3.8-10.2); NEUT % 79.6 % (42.8-82.8); PLATELET COUNT 579 K/MM3 (134-434); RBC 3.81 M/mm3 (3.60-5.2); WHITE BLOOD COUNT 19.5 K/mm3 (4.0-10.0)
[2020-05-24 09:24] LABS: ALBUMIN 2.2 g/dl (3.4-5.0); BILIRUBIN,TOTAL 0.3 mg/dL (0.2-1); BLOOD UREA NITROGEN 27.1 mg/dL (7-18); CALCIUM 10.2 mg/dL (8.5-10.1); CREATININE 0.6 mg/dL (0.55-1.3); MAGNESIUM 2.2 mg/dL (1.8-2.4); POTASSIUM 4.3 mmol/L (3.5-5.1); TOT PROT 7.8 g/dl (6.4-8.2)
[2020-05-24] MEDS ORDERED: PT OWN MED DRAWER 7, Y5N ONE (10:56)
[2020-05-24] MEDS: ASCORBIC ACID 500 MG TABLET (FP) PO SCH ×2 (10:57→21:29)
[2020-05-24] MEDS: DOCUSATE NA 100 MG/10 ML UNIT-DOSE CUPS PO SCH ×2 (10:57→21:30)
[2020-05-24] MEDS: amLODIPine BESYLATE 10 MG TABLET (FP) PO SCH (10:57)
[2020-05-24] MEDS: ASPIRIN 81 MG CHEWABLE TABLETS PO SCH (10:57)
[2020-05-24] MEDS: MULTIVIT-MINERALS ORAL LIQUID PO SCH (10:57)
[2020-05-24] MEDS: COLLAGENASE CLOSTRIDIUM HIST. 30 GRAMS TUBE TP SCH (10:58)
[2020-05-24] MEDS: metoPROLOL SUCCINATE 25 MG TAB.SR.24H (FP) PO SCH (10:58)
[2020-05-24 11:39] LABS: INR 1.19 (0.83-1.09); PROTHROMBIN TIME (PATIENT) 14.1 SEC (9.7-13.0)
--- NOTE | 2020-05-24 13:07 | PN ---
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, Physician History of Present Illness: stable plan for g tube placement - Current Medication List Current Medications: Active Medications Acetaminophen (Tylenol -) 650 mg PO Q6H PRN PRN Reason: Fever Last Admin: 05/22/20 21:45 Dose: 650 mg Documented by: Amino Acids (Prosource No Carb Liquid Pkt) 30 ml PO TIDAC [facility] Last Admin: 05/24/20 10:58 Dose: 30 ml Documented by: Amlodipine Besylate (Norvasc -) 10 mg PO DAILY [facility] Last Admin: 05/24/20 10:57 Dose: 10 mg Documented by: Ascorbic Acid (Vitamin C -) 500 mg PO BID [facility] Last Admin: 05/24/20 10:57 Dose: 500 mg Documented by: Atorvastatin Calcium (Lipitor -) 20 mg PO [facility] Citalopram Hydrobromide (Celexa -) 20 mg PO HS [facility] Last Admin: 05/23/20 21:31 Dose: 20 mg Documented by: Collagenase (Santyl -) 1 applic TP DAILY [facility]; Protocol Last Admin: 05/24/20 10:58 Dose: 1 applic Documented by: Docusate Sodium (Colace Liquid -) 100 mg PO BID [facility] Last Admin: 05/24/20 10:57 Dose: 100 mg Documented by: Daptomycin 500 mg/ Sodium (Chloride) 50 mls @ 50 mls/hr IVPB Q24H [facility]; Protocol Last Admin: 05/23/20 17:27 Dose: 50 mls/hr Documented by: Meropenem 1 gm/ Dextrose 100 mls @ 200 mls/hr IVPB Q8H-IV [facility] Last Admin: 05/24/20 10:57 Dose: 200 mls/hr Documented by: Dextrose/Sodium Chloride (D5-1/2ns -) 1,000 mls @ 30 mls/hr IV ASDIR [facility] Last Admin: 05/24/20 01:33 Dose: 30 mls/hr Documented by: Metoprolol Succinate (Toprol Xl -) 12.5 mg PO DAILY [facility] Last Admin: 05/24/20 10:58 Dose: 12.5 mg Documented by: Mirtazapine (Remeron -) 7.5 mg PO HS [facility] Last Admin: 05/23/20 21:31 Dose: 7.5 mg Documented by: Multivitamins/Minerals (Certavite-Antioxidant Liquid) 15 ml PO DAILY [facility] Last Admin: 05/24/20 10:57 Dose: 15 ml Documented by: Nystatin (Nystatin Oral Suspension -) 500,000 units PO Q6HPO [facility] Last Admin: 05/24/20 12:41 Dose: 500,000 units Documented by: Ondansetron HCl (Zofran Injection) 4 mg IVPUSH Q6H PRN PRN Reason: NAUSEA AND/OR VOMITING Oxycodone HCl (Roxicodone -) 5 mg PO Q6H PRN PRN Reason: PAIN LEVEL 7 - 10 Last Admin: 05/24/20 05:09 Dose: 5 mg Documented by: Pantoprazole Sodium (Protonix Packets For Oral Suspension -) 40 mg PO ACBK [facility] Last Admin: 05/24/20 06:42 Dose: 40 mg Documented by: Polyethylene Glycol (Miralax (For Daily Use) -) 17 gm PO BID PRN PRN Reason: CONSTIPATION Senna/Docusate Sodium (Pericolace -) 1 tablet PO BID PRN PRN Reason: CONSTIPATION - Objective Vital Signs: Vital Signs Temperature 97.8 F 05/24/20 10:00 Pulse Rate 88 05/24/20 10:00 Respiratory Rate 18 05/24/20 10:00 Blood Pressure 161/71 05/24/20 10:00 O2 Sat by Pulse Oximetry (%) 95 05/24/20 10:00 Constitutional: Yes: No Distress, Calm Cardiovascular: Yes: S1, S2 Respiratory: Yes: Regular, CTA Bilaterally Gastrointestinal: Yes: Normal Bowel Sounds, Soft Musculoskeletal: Yes: WNL Extremities: Yes: WNL Wound/Incision: Yes: Dressing Dry and Intact Neurological: Yes: Alert, Other (left side weakness) Labs: CBC, BMP 05/24/20 08:24 05/24/20 08:24 INR, PTT INR 1.19 (0.83-1.09) H 05/24/20 10:50 Assessment/Plan Problem List - Problems (1) Severe sepsis Code(s): A41.9 - SEPSIS, UNSPECIFIED ORGANISM; R65.20 - SEVERE SEPSIS WITHOUT SEPTIC SHOCK (2) Bacteremia due to Gram-negative bacteria Code(s): R78.81 - BACTEREMIA (3) Status post spinal surgery Code(s): Z98.890 - OTHER SPECIFIED POSTPROCEDURAL STATES (4) Toxic metabolic encephalopathy Code(s): G92 - TOXIC ENCEPHALOPATHY (5) Urinary tract infection Code(s): N39.0 - URINARY TRACT INFECTION, SITE NOT SPECIFIED Qualifiers: Urinary tract infection type: site unspecified Hematuria presence: without hematuria Qualified Code(s): N39.0 - Urinary tract infection, site not specified Assessment/Plan 79 y.o. female with PMH of dementia, HTN, depression, lumbar stenosis s/p laminectomy, neuropathy who underwent removal of L3-L5 hardware, L3-S1 laminectomies, L5-S1 PLIF/L3-S1 PSIF on 04/09/20 and noted to develop fever up to 101.8F and increase in wbc to 16.8K along with lethargy and mild hypotension Severe Sepsis Gram negative/E. coli Bacteremia Pseudomonas UTI s/p lumbar wound I+D, s/p washout/wound vac placement plan ct current mgmt abx wound care rest as per the team complete the abx course patient needs another 4 weeks plan for peg tube
--- NOTE | 2020-05-24 13:16 | PN ---
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: Selected Entries 05/19/20 05/19/20 05/20/20 06:00 14:00 14:00 Breakfast 25% 25% Diet Tolerated Fair Fair Fair Lunch 50% 50% Supper 25% Temperature Pulse Rate Blood Pressure 05/20/20 05/20/20 05/21/20 18:00 23:00 02:00 Breakfast Diet Tolerated Poor Poor Lunch Supper Temperature 98.0 F Pulse Rate 70 Blood Pressure 160/76 05/21/20 06:00 Breakfast Diet Tolerated Lunch Supper Temperature 97.8 F Pulse Rate 80 Blood Pressure 158/72 Laboratory Tests 05/20/20 05/21/20 07:16 06:36 WBC 17.7 H 14.7 H Selected Entries 05/22/20 05/22/20 05/23/20 11:06 14:00 01:51 Breakfast 50% Lunch 75% Temperature 98.5 F Pulse Rate 86 Blood Pressure 146/74 05/23/20 06:00 Breakfast Lunch Temperature 98.9 F Pulse Rate 85 Blood Pressure 158/79 Laboratory Tests 05/21/20 05/22/20 05/23/20 06:36 05:59 10:10 WBC 14.7 H 15.4 H 19.7 H Accepting 25-50% with encouragement reviewed with medical team Plan is for gastrostomy tube placement
--- NOTE | 2020-05-24 13:48 | PN ---
Physical Exam: SUBJECTIVE: Patient seen and examined at bedside. c/o left leg pain, otherwise no complaints. Denies chest pain, SOB, fevers, chills, abd pain. OBJECTIVE: Patient is a 80 year old female with a history of hypertension, dementia, depression, spinal stenosis, neuropathy she is s/p removal of L3-L5 hardware, including L4-L5 intervertebral cage, L3-S1 laminectomy, L5-S1 PLIF, L3-S1 posterior instrumented spinal fusion. She is s/p multiple washouts for infected hardware. Patient was noted to have left upper ext weakness and brain mri shows small post periventricular infarct. She was transferred to [facility]. 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 on bus monitor, carotid Doppler shows intimal thickening and atherosclerosis no gross obstruction. she remains on IV antibiotics and WBC remains elevated. Patient for a peg tube placement by IR. Leukocytosis @ 19.7 despite antibiotics. vital Signs Period Temp Pulse Resp BP Sys/Lepe Pulse Ox Last 24 Hr 97.8 F-98.4 F 76-91 16-20 123-161/61-86 95-98 GENERAL: awake, weak appearing, answers questions appropriately HEAD: Normal with no signs of trauma. EYES: PERRL, legally blind both eyes sclera anicteric, conjunctiva clear. No ptosis. ENT: Ears normal, nares patent, oropharynx clear without exudates NECK: Trachea midline, full range of motion, supple. LUNGS: lungs diminished at the bases, no wheezes, rhonchi, or rales, good chest expansion, tolerating room air. SPINE: wound vac in place HEART: Regular rate and rhythm, no m/r/g, normal s1s2 ABDOMEN: Soft, nontender, nondistended, normoactive bowel sounds, no guarding EXTREMITIES: no edema. unstageable wound of right heel. left hand contracted, able to move right arm, but difficulty moving left arm. NEUROLOGICAL: Normal speech, gait not observed. PSYCH: calm, cooperative, normal mood Laboratory Results - last 24 hr 05/24/20 05/24/20 05/24/20 08:24 08:24 10:50 WBC 19.5 H RBC 3.81 Hgb 10.1 L Hct 31.8 L MCV 83.5 MCH 26.6 MCHC 31.8 L RDW 16.0 H Plt Count 579 H MPV 8.1 Absolute Neuts (auto) 15.5 H Neutrophils % 79.6 Lymphocytes % 8.2 Monocytes % 4.2 Eosinophils % 7.5 H Basophils % 0.5 Nucleated RBC % 0 PT with INR 14.10 H INR 1.19 H Sodium 138 Potassium 4.3 Chloride 104 Carbon Dioxide 27 Anion Gap 8 BUN 27.1 H Creatinine 0.6 Est GFR (CKD-EPI)AfAm 101.18 Est GFR (CKD-EPI)NonAf 87.30 Random Glucose 90 Calcium 10.2 H Magnesium 2.2 Total Bilirubin 0.3 AST 28 ALT 26 Alkaline Phosphatase 135 H Total Protein 7.8 Albumin 2.2 L Active Medications Generic Name Dose Route Start Last Admin Trade Name Freq PRN Reason Stop Dose Admin Acetaminophen 650 mg 05/16/20 20:58 05/22/20 21:45 Tylenol - PO 650 mg Q6H PRN Administration Fever Amino Acids 30 ml 05/20/20 01:07 05/24/20 10:58 Prosource No Carb Liquid Pkt PO 30 ml TIDAC JAYE Administration Amlodipine Besylate 10 mg 05/21/20 10:00 05/24/20 10:57 Norvasc - PO 10 mg DAILY JAYE Administration Ascorbic Acid 500 mg 05/16/20 22:00 05/24/20 10:57 Vitamin C - PO 500 mg BID JAYE Administration Atorvastatin Calcium 20 mg 05/16/20 22:00 Lipitor - PO HS JAYE Citalopram Hydrobromide 20 mg 05/16/20 22:00 05/23/20 21:31 Celexa - PO 20 mg HS JAYE Administration Collagenase 1 applic 05/17/20 10:00 05/24/20 10:58 Santyl - TP 1 applic DAILY JAYE Administration Protocol Docusate Sodium 100 mg 05/18/20 11:15 05/24/20 10:57 Colace Liquid - PO 100 mg BID JAYE Administration Daptomycin 500 mg/ Sodium 50 mls @ 50 mls/hr 05/17/20 16:00 05/23/20 17:27 Chloride IVPB 50 mls/hr Q24H JAYE Administration Protocol Meropenem 1 gm/ Dextrose 100 mls @ 200 mls/hr 05/17/20 02:00 05/24/20 10:57 IVPB 200 mls/hr Q8H-IV JAYE Administration Dextrose/Sodium Chloride 1,000 mls @ 30 mls/hr 05/16/20 23:15 05/24/20 01:33 D5-1/2ns - IV 30 mls/hr ASDIR JAYE Administration Metoprolol Succinate 12.5 mg 05/24/20 10:00 05/24/20 10:58 Toprol Xl - PO 12.5 mg DAILY JAYE Administration Mirtazapine 7.5 mg 05/16/20 22:00 05/23/20 21:31 Remeron - PO 7.5 mg HS JAYE Administration Multivitamins/Minerals 15 ml 05/17/20 10:00 05/24/20 10:57 Certavite-Antioxidant Liquid PO 15 ml DAILY JAYE Administration Nystatin 500,000 units 05/18/20 18:00 05/24/20 12:41 Nystatin Oral Suspension - PO 500,000 units Q6HPO JAYE Administration Ondansetron HCl 4 mg 05/16/20 20:58 Zofran Injection IVPUSH Q6H PRN NAUSEA AND/OR VOMITING Oxycodone HCl 5 mg 05/23/20 10:50 05/24/20 05:09 Roxicodone - PO 5 mg Q6H PRN Administration PAIN LEVEL 7 - 10 Pantoprazole Sodium 40 mg 05/17/20 07:00 05/24/20 06:42 Protonix Packets For Oral Suspension - PO 40 mg ACBK JAYE Administration Polyethylene Glycol 17 gm 05/16/20 20:58 Miralax (For Daily Use) - PO BID PRN CONSTIPATION Senna/Docusate Sodium 1 tablet 05/16/20 20:58 Pericolace - PO BID PRN CONSTIPATION ASSESSMENT/PLAN: Problem List - Problems (1) CVA (cerebral vascular accident) Assessment/Plan: recent infarct seen on brain mri 05/16/2020. on asa, statin therapy (statin being held since it interferes with daptomycin) physical therapy evaluation speech and swallow following aspiration precautions neurology following Code(s): I63.9 - CEREBRAL INFARCTION, UNSPECIFIED (2) Severe sepsis Assessment/Plan: spinal stenosis. s/p removal of L3-L5 hardware, including L4-L5 intervertebral cage, L3-S1 laminectomy, L5-S1 PLIF, L3-S1 posterior instrumented spinal fusion. s/p multiple washouts now with wound vac on daptomycin and meropenem per ID per ID, patient will need 4 more weeks of IV abx per PICC line patient s/p washout 05/12/2020 +leukocytosis, f/u with ortho surgery monitor vitals, labs, mental status Code(s): A41.9 - SEPSIS, UNSPECIFIED ORGANISM; R65.20 - SEVERE SEPSIS WITHOUT SEPTIC SHOCK (3) Unstageable pressure ulcer of right heel Assessment/Plan: unstageable right heel pressure ulcer, purple in color, round. patient denies pain. plan to continue to: - elevate heels at all times. - add santyl daily - vascular evaluated, notes reviewed - monitor wound daily Code(s): L89.610 - PRESSURE ULCER OF RIGHT HEEL, UNSTAGEABLE (4) Poor appetite Assessment/Plan: patient reported to have a poor appetite. peg tube refused before, but being again recommended per surgery to help with wound healing and now agrees aspirin on hold for peg tube placement via IR coags repeated food product inspector consult re: peg tube feed calculations Code(s): R63.0 - ANOREXIA (5) Toxic metabolic encephalopathy Assessment/Plan: mental status has improved patient noted to have an acute stroke per brain mri 05/16/2020 Code(s): G92 - TOXIC ENCEPHALOPATHY (6) Status post spinal surgery Assessment/Plan: Wound culture from 04/23/2020 grew pseudomonas resistant to zosyn and VRE sentivie to daptomycin. Continue daptomycin and meropenem. ID following monitor WBC, fevers, vitals continue wound vac Code(s): Z98.890 - OTHER SPECIFIED POSTPROCEDURAL STATES (7) At risk for dehydration due to poor fluid intake Assessment/Plan: as per nurse, patient is a total feed and needs encouragement to eat and drink. She is on supplements and being followed by an RD for peg tube placement Code(s): Z91.89 - OTH PERSONAL RISK FACTORS, NOT ELSEWHERE CLASSIFIED (8) DVT prophylaxis Assessment/Plan: SCDs asa on hold for peg tube placement heparin once spine surgeon clears Code(s): Z29.9 - ENCOUNTER FOR PROPHYLACTIC MEASURES, UNSPECIFIED (9) Prophylactic measure Assessment/Plan: fen monitor electrolytes dietary following full code Code(s): Z29.9 - ENCOUNTER FOR PROPHYLACTIC MEASURES, UNSPECIFIED Visit type - Emergency Visit Emergency Visit: Yes ED Registration Date: 04/09/20 Care time: The patient presented to the Emergency Department on the above date and was hospitalized for further evaluation of their emergent condition. - New Patient This patient is new to me today: No - Critical Care Critical Care patient: No - Discharge Referral Referred to [facility] No - Medication Review Med list reviewed for High Risk Meds patients 65 and older: Yes
[2020-05-24] MEDS: DAPTOMYCIN 500 MG in SODIUM CHLORIDE 50 ML IVPB SCH (16:05)
--- NOTE | 2020-05-24 16:08 | CON.CARD ---
Cardiology Consult (text) - Consultation Consultation Note: cc: elective spine surgery hpi: 80 f hx htn, hld, here for elective spine surgery. Had long post op course complicated by infections and sepsis and recently found cva. Pt denies cp sob palps dizzy loc pnd orthopnea le edema. Tele showed svt so cardio co nsulted. pmh: per hpi psh: spine surgery social: no tob fam: no premature cad, scd ros: per hpi; all others nl meds: Home Medications Medication Instructions Recorded Citalopram Hydrobromide 20 mg PO HS 02/18/20 [Citalopram HBr] Losartan Potassium [Cozaar] 25 mg PO DAILY 02/18/20 Mirtazapine 7.5 mg PO HS 04/09/20 Current Medications Generic Name Dose Route Start Last Admin Trade Name Freq PRN Reason Stop Dose Admin Acetaminophen 650 mg 05/16/20 20:58 05/22/20 21:45 Tylenol - PO 650 mg Q6H PRN Administration Fever Amino Acids 30 ml 05/20/20 01:07 05/24/20 10:58 Prosource No Carb Liquid Pkt PO 30 ml TIDAC JAYE Administration Amlodipine Besylate 10 mg 05/21/20 10:00 05/24/20 10:57 Norvasc - PO 10 mg DAILY JAYE Administration Ascorbic Acid 500 mg 05/16/20 22:00 05/24/20 10:57 Vitamin C - PO 500 mg BID JAYE Administration Atorvastatin Calcium 20 mg 05/16/20 22:00 Lipitor - PO HS JAYE Citalopram Hydrobromide 20 mg 05/16/20 22:00 05/23/20 21:31 Celexa - PO 20 mg HS JAYE Administration Collagenase 1 applic 05/17/20 10:00 05/24/20 10:58 Santyl - TP 1 applic DAILY JAYE Administration Protocol Docusate Sodium 100 mg 05/18/20 11:15 05/24/20 10:57 Colace Liquid - PO 100 mg BID JAYE Administration Daptomycin 500 mg/ Sodium 50 mls @ 50 mls/hr 05/17/20 16:00 05/23/20 17:27 Chloride IVPB 50 mls/hr Q24H JAYE Administration Protocol Meropenem 1 gm/ Dextrose 100 mls @ 200 mls/hr 05/17/20 02:00 05/24/20 10:57 IVPB 200 mls/hr Q8H-IV JAYE Administration Dextrose/Sodium Chloride 1,000 mls @ 30 mls/hr 05/16/20 23:15 05/24/20 01:33 D5-1/2ns - IV 30 mls/hr ASDIR JAYE Administration Metoprolol Succinate 12.5 mg 05/24/20 10:00 05/24/20 10:58 Toprol Xl - PO 12.5 mg DAILY JAYE Administration Mirtazapine 7.5 mg 05/16/20 22:00 05/23/20 21:31 Remeron - PO 7.5 mg HS JAYE Administration Multivitamins/Minerals 15 ml 05/17/20 10:00 05/24/20 10:57 Certavite-Antioxidant Liquid PO 15 ml DAILY JAYE Administration Nystatin 500,000 units 05/18/20 18:00 05/24/20 12:41 Nystatin Oral Suspension - PO 500,000 units Q6HPO JAYE Administration Ondansetron HCl 4 mg 05/16/20 20:58 Zofran Injection IVPUSH Q6H PRN NAUSEA AND/OR VOMITING Oxycodone HCl 5 mg 05/23/20 10:50 05/24/20 05:09 Roxicodone - PO 5 mg Q6H PRN Administration PAIN LEVEL 7 - 10 Pantoprazole Sodium 40 mg 05/17/20 07:00 05/24/20 06:42 Protonix Packets For Oral Suspension - PO 40 mg ACBK JAYE Administration Polyethylene Glycol 17 gm 05/16/20 20:58 Miralax (For Daily Use) - PO BID PRN CONSTIPATION Senna/Docusate Sodium 1 tablet 05/16/20 20:58 Pericolace - PO BID PRN CONSTIPATION pe: Vital Signs Period Temp Pulse Resp BP Sys/Lepe Pulse Ox Last 24 Hr 97.8 F-98.4 F 76-91 18-20 123-161/61-86 95-98 nad no jvd rrr s1s2 no mrg cta bl nl eff awake alert abd nt nd pos bs no jaundice diaphoresis pos dp pt no carotid bruits no le e/c/c Laboratory Last Values WBC 19.5 K/mm3 (4.0-10.0) H 05/24/20 08:24 RBC 3.81 M/mm3 (3.60-5.2) 05/24/20 08:24 Hgb 10.1 GM/dL (10.7-15.3) L 05/24/20 08:24 Hct 31.8 % (32.4-45.2) L 05/24/20 08:24 MCV 83.5 fl (80-96) 05/24/20 08:24 MCH 26.6 pg (25.7-33.7) 05/24/20 08:24 MCHC 31.8 g/dl (32.0-36.0) L 05/24/20 08:24 RDW 16.0 % (11.6-15.6) H 05/24/20 08:24 Plt Count 579 K/MM3 (134-434) H 05/24/20 08:24 MPV 8.1 fl (7.5-11.1) 05/24/20 08:24 Absolute Neuts (auto) 15.5 K/mm3 (1.5-8.0) H 05/24/20 08:24 Total Counted 100 04/23/20 05:40 Neutrophils % 79.6 % (42.8-82.8) 05/24/20 08:24 Neutrophils % (Manual) 88.9 % (42.8-82.8) H 04/25/20 06:00 Band Neutrophils % 0.0 % 04/25/20 06:00 Lymphocytes % 8.2 % (8-40) 05/24/20 08:24 Lymphocytes % (Manual) 5.1 % (8-40) L D 04/25/20 06:00 Monocytes % 4.2 % (3.8-10.2) 05/24/20 08:24 Monocytes % (Manual) 2 % (3.8-10.2) L 04/25/20 06:00 Eosinophils % 7.5 % (0-4.5) H 05/24/20 08:24 Eosinophils % (Manual) 1.0 % (0-4.5) 04/25/20 06:00 Basophils % 0.5 % (0-2.0) 05/24/20 08:24 Basophils % (Manual) 0.0 % (0-2.0) 04/25/20 06:00 Myelocytes % (Man) 2 % (0-2) D 04/25/20 06:00 Promyelocytes % (Man) 0 % (0-2) 04/25/20 06:00 Blast Cells % (Manual) 0 % (0-0) 04/25/20 06:00 Nucleated RBC % 0 % (0-0) 05/24/20 08:24 Metamyelocytes 0 % (0-2) 04/25/20 06:00 Hypochromia 2+ 04/25/20 06:00 Platelet Estimate Increased 04/25/20 06:00 Platelet Comment Present 04/12/20 08:40 Polychromasia 1+ 04/25/20 06:00 Poikilocytosis 0 04/25/20 06:00 Anisocytosis 1+ 04/25/20 06:00 Microcytosis 1+ 04/25/20 06:00 Macrocytosis 1+ 04/25/20 06:00 Target Cells 1+ 04/18/20 06:30 Retic Count 0.98 % (0.5-1.5) 04/20/20 05:40 PT with INR 14.10 SEC (9.7-13.0) H 05/24/20 10:50 INR 1.19 (0.83-1.09) H 05/24/20 10:50 PTT (Actin FS) 35.7 SECONDS (25.2-36.5) 04/25/20 06:00 Anticoagulation Therapy No Result Required. 04/20/20 05:48 Puncture Site Right radial 04/20/20 05:48 Patient Temperature No Result Required. 04/20/20 05:48 ABG pH 7.398 (7.350-7.450) 04/20/20 05:48 ABG pCO2 43.50 mmHg (35-45) 04/20/20 05:48 ABG pO2 106.6 mmHg (80-100) H 04/20/20 05:48 ABG HCO3 26.2 mmol/L (22-27) 04/20/20 05:48 ABG O2 Sat (Measured) 97.9 mmHg (95-98) 04/20/20 05:48 ABG O2 Content No Result Required. 04/20/20 05:48 ABG Base Excess 1.2 mmol/L (-2-2) 04/20/20 05:48 Yeyo Test Positive 04/20/20 05:48 Patient On Oxygen Yes 04/20/20 05:48 O2 Delivery Device N/c 04/20/20 05:48 Oxygen Flow Rate 2.5l 04/20/20 05:48 Vent Mode No Result Required. 04/20/20 05:48 Vent Rate No Result Required. 04/20/20 05:48 Mechanical Rate No Result Required. 04/20/20 05:48 PEEP No Result Required. 04/20/20 05:48 Pressure Support Vent No Result Required. 04/20/20 05:48 Sodium 138 mmol/L (136-145) 05/24/20 08:24 Potassium 4.3 mmol/L (3.5-5.1) 05/24/20 08:24 Chloride 104 mmol/L (98-107) 05/24/20 08:24 Carbon Dioxide 27 mmol/L (21-32) 05/24/20 08:24 Anion Gap 8 MMOL/L (8-16) 05/24/20 08:24 BUN 27.1 mg/dL (7-18) H 05/24/20 08:24 Creatinine 0.6 mg/dL (0.55-1.3) 05/24/20 08:24 Est GFR (CKD-EPI)AfAm 101.18 05/24/20 08:24 Est GFR (CKD-EPI)NonAf 87.30 05/24/20 08:24 POC Glucometer 92 UNITS (80-120) 05/15/20 06:05 Random Glucose 90 mg/dL (74-106) 05/24/20 08:24 Hemoglobin A1c % 4.9 % (4.2-6.3) 05/17/20 06:50 Lactic Acid 0.9 mmol/L (0.4-2.0) 04/17/20 12:10 Calcium 10.2 mg/dL (8.5-10.1) H 05/24/20 08:24 Phosphorus 3.2 mg/dL (2.5-4.9) 04/30/20 08:18 Magnesium 2.2 mg/dL (1.8-2.4) 05/24/20 08:24 Iron 64 ug/dL (50-175) 04/20/20 05:40 TIBC 108 ug/dL (250-450) L 04/20/20 05:40 Iron Saturation 59 % (17.5-39) H 04/20/20 05:40 Unsaturated IBC 44 ug/dL (200-275) L 04/20/20 05:40 Ferritin 836.1 ng/ml (8-388) H 04/20/20 05:40 Total Bilirubin 0.3 mg/dL (0.2-1) 05/24/20 08:24 AST 28 U/L (15-37) 05/24/20 08:24 ALT 26 U/L (13-61) 05/24/20 08:24 Alkaline Phosphatase 135 U/L (45-117) H 05/24/20 08:24 Creatine Kinase 106 U/L (26-192) 05/21/20 06:36 Total Protein 7.8 g/dl (6.4-8.2) 05/24/20 08:24 Total Protein (PEP) 5.7 g/dL (6.0-8.5) L 04/20/20 05:40 Albumin 2.2 g/dl (3.4-5.0) L 05/24/20 08:24 Albumin (PEP) 2.2 gm/dl (2.9-4.4) L 04/20/20 05:40 Globulin 3.5 g/dL (2.2-3.9) 04/20/20 05:40 Albumin/Globulin Ratio 0.6 (0.7-1.7) L 04/20/20 05:40 Beta Globulins 0.7 gm/dL (0.7-1.3) 04/20/20 05:40 Triglycerides 220 mg/dL (0-150) H 05/17/20 06:50 Cholesterol 210 mg/dL (50-200) H 05/17/20 06:50 Total LDL Cholesterol 156 mg/dL (5-100) H 05/17/20 06:50 HDL Cholesterol 21 mg/dL (40-60) L 05/17/20 06:50 Total Amylase 120 U/L (25-115) H 04/20/20 05:40 Lipase 264 U/L (73-393) 04/20/20 05:40 Urine Color Yellow 04/17/20 12:05 Urine Appearance Clear 04/17/20 12:05 Urine pH 6.0 (5.0-8.0) 04/17/20 12:05 Ur Specific [place] 1.021 (1.010-1.035) 04/17/20 12:05 Urine Protein Trace (NEGATIVE) 04/17/20 12:05 Urine Glucose (UA) Negative (NEGATIVE) 04/17/20 12:05 Urine Ketones 2+ (NEGATIVE) H 04/17/20 12:05 Urine Blood Negative (NEGATIVE) 04/17/20 12:05 Urine Nitrite Positive (NEGATIVE) H 04/17/20 12:05 Urine Bilirubin Negative (NEGATIVE) 04/17/20 12:05 Urine Urobilinogen 1.0 mg/dL (0.2-1.0) 04/17/20 12:05 Ur Leukocyte Esterase 1+ (NEGATIVE) H 04/17/20 12:05 Urine WBC (Auto) 209 /uL (0-25.8) 04/17/20 12:05 Urine RBC (Auto) 4 /uL (0-23.9) 04/17/20 12:05 Urine Casts (Auto) 17 /uL (0-3.1) 04/17/20 12:05 U Pathogenic Cast Auto Wbc granular casts /lpf (NEGATIVE) 04/17/20 12:05 U Epithel Cells (Auto) 4 /uL (0-25.1) 04/17/20 12:05 Urine Bacteria (Auto) 2252 /uL (0-1359) 04/17/20 12:05 Stool Occult Blood Negative (NEGATIVE) 04/28/20 22:25 Random Vancomycin 11.6 ug/ml (5-26) 04/23/20 05:40 Vancomycin Pre-Dose 26.1 ug/ml (5-10) H 04/21/20 12:40 IAN M-Yasmani Not observed g/dL (Not Observed) 04/20/20 05:40 COVID-19 (ESTER) Not detected (Not Detected) 05/21/20 14:30 Blood Type O POSITIVE 04/24/20 14:45 Antibody Screen Negative 04/24/20 14:45 Crossmatch See Detail 04/24/20 14:45 cxr: clear tele: sr, 2 brief runs of PAT approx 10 beats each echo 05/2020: nl lv/rv, mild as carotid: mild dz, no sig stenosis a/p: 80 f hx htn, hld, here for elective spine surgery. htn: -cont ccb, bb hld: -cont statin cva: -cont statin, bp control -echo and carotids unremarkable -neuro following svt: -tele shows two brief episodes of PAT, less than 10 beats each run. Pt asymptomatic and echo unremarkable so this is benign finding. Cont bb, monitor tele.
[2020-05-24] MEDS: CITALOPRAM HYDROBROMIDE 20 MG TABLET PO SCH (21:28)
[2020-05-24] MEDS: MIRTAZAPINE 15 MG TABLET (FP) PO SCH (21:29)
[2020-05-25] MEDS: DEXTROSE 5%-0.45% SALINE 1,000 ML IV SCH ×2 (00:12→23:12)
[2020-05-25] MEDS: NYSTATIN 500,000 UNITS/5 ML SUSPENSION PO SCH ×5 (00:19→23:12)
[2020-05-25] MEDS ORDERED: MEROPENEM 1 GM VIAL (RESTRICTED TO ID) IVPB ONE ×3 (01:02→17:10)
[2020-05-25] MEDS ORDERED: DEXTROSE 5%-WATER 100 ML IVPB ONE ×3 (01:02→17:10)
[2020-05-25] MEDS: MEROPENEM 1 GM in DEXTROSE 5%-WATER 100 ML IVPB SCH ×3 (01:03→17:16)
[2020-05-25] MEDS: oxyCODONE HCL 5 MG TABLET PO PRN ×2 (04:46→21:12)
[2020-05-25] MEDS: AMINO ACIDS/PROTEIN HYDROLYS 30 ML LIQUID.PKT PO SCH ×3 (06:00→17:16)
[2020-05-25] MEDS: PANTOPRAZOLE SOD 40 MG SUSPENSION PACKET PO SCH (06:00)
--- NOTE | 2020-05-25 06:12 | PN ---
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, Physician Chief Complaint: no CP/SOB/palps TELE: NSR with one short episode parox atach - Current Medication List Current Medications: Active Medications Acetaminophen (Tylenol -) 650 mg PO Q6H PRN PRN Reason: Fever Last Admin: 05/22/20 21:45 Dose: 650 mg Documented by: Amino Acids (Prosource No Carb Liquid Pkt) 30 ml PO TIDAC [facility] Last Admin: 05/25/20 06:00 Dose: 30 ml Documented by: Amlodipine Besylate (Norvasc -) 10 mg PO DAILY [facility] Last Admin: 05/24/20 10:57 Dose: 10 mg Documented by: Ascorbic Acid (Vitamin C -) 500 mg PO BID [facility] Last Admin: 05/24/20 21:29 Dose: 500 mg Documented by: Atorvastatin Calcium (Lipitor -) 20 mg PO [facility] Citalopram Hydrobromide (Celexa -) 20 mg PO HS [facility] Last Admin: 05/24/20 21:28 Dose: 20 mg Documented by: Collagenase (Santyl -) 1 applic TP DAILY [facility]; Protocol Last Admin: 05/24/20 10:58 Dose: 1 applic Documented by: Docusate Sodium (Colace Liquid -) 100 mg PO BID [facility] Last Admin: 05/24/20 21:30 Dose: 100 mg Documented by: Daptomycin 500 mg/ Sodium (Chloride) 50 mls @ 50 mls/hr IVPB Q24H [facility]; Protocol Last Admin: 05/24/20 16:05 Dose: 50 mls/hr Documented by: Meropenem 1 gm/ Dextrose 100 mls @ 200 mls/hr IVPB Q8H-IV [facility] Last Admin: 05/25/20 01:03 Dose: 200 mls/hr Documented by: Dextrose/Sodium Chloride (D5-1/2ns -) 1,000 mls @ 30 mls/hr IV ASDIR [facility] Last Admin: 05/25/20 00:12 Dose: Not Given Documented by: Metoprolol Succinate (Toprol Xl -) 12.5 mg PO DAILY [facility] Last Admin: 05/24/20 10:58 Dose: 12.5 mg Documented by: Mirtazapine (Remeron -) 7.5 mg PO [facility] Last Admin: 05/24/20 21:29 Dose: 7.5 mg Documented by: Multivitamins/Minerals (Certavite-Antioxidant Liquid) 15 ml PO DAILY [facility] Last Admin: 05/24/20 10:57 Dose: 15 ml Documented by: Nystatin (Nystatin Oral Suspension -) 500,000 units PO Q6HPO [facility] Last Admin: 05/25/20 06:00 Dose: 500,000 units Documented by: Ondansetron HCl (Zofran Injection) 4 mg IVPUSH Q6H PRN PRN Reason: NAUSEA AND/OR VOMITING Oxycodone HCl (Roxicodone -) 5 mg PO Q6H PRN PRN Reason: PAIN LEVEL 7 - 10 Last Admin: 05/25/20 04:46 Dose: 5 mg Documented by: Pantoprazole Sodium (Protonix Packets For Oral Suspension -) 40 mg PO ACBK [facility] Last Admin: 05/25/20 06:00 Dose: 40 mg Documented by: Polyethylene Glycol (Miralax (For Daily Use) -) 17 gm PO BID PRN PRN Reason: CONSTIPATION Senna/Docusate Sodium (Pericolace -) 1 tablet PO BID PRN PRN Reason: CONSTIPATION - Objective Vital Signs: Vital Signs Temperature 97.4 F L 05/25/20 05:33 Pulse Rate 70 05/25/20 05:33 Respiratory Rate 18 05/25/20 05:33 Blood Pressure 128/60 05/25/20 05:33 O2 Sat by Pulse Oximetry (%) 96 05/25/20 05:33 Constitutional: Yes: No Distress Cardiovascular: Yes: Regular Rate and Rhythm Respiratory: Yes: CTA Bilaterally Gastrointestinal: Yes: Soft (nt) Edema: No Neurological: Yes: Other (left sided weakness) Labs: CBC, BMP 05/24/20 08:24 05/24/20 08:24 INR, PTT INR 1.19 (0.83-1.09) H 05/24/20 10:50 Laboratory Tests 05/24/20 05/24/20 05/24/20 08:24 08:24 10:50 WBC 19.5 H Hgb 10.1 L Plt Count 579 H INR 1.19 H Sodium 138 Potassium 4.3 Creatinine 0.6 - ....Imaging EKG: Image Reviewed Assessment/Plan DATA: echo 05/2020: nl lv/rv, mild as carotid: mild dz, no sig stenosis a/p: 80 f hx htn, hld, here for elective spine surgery. htn: well controlled -cont ccb, bb hld: -cont statin cva: -cont statin, bp control -echo and carotids unremarkable -neuro following svt: -tele shows two brief episodes of PAT, less than 10 beats each run. Pt asymptomatic and echo unremarkable so this is benign finding. Cont bb, monitor tele.
--- NOTE | 2020-05-25 09:31 | PN ---
Physical Exam: SUBJECTIVE: Patient seen and examined. denies any pain or malaise. OBJECTIVE: Patient is a 80 year old female with a history of hypertension, dementia, depression, spinal stenosis, neuropathy she is s/p removal of L3-L5 hardware, including L4-L5 intervertebral cage, L3-S1 laminectomy, L5-S1 PLIF, L3-S1 posterior instrumented spinal fusion. She is s/p multiple washouts for infected hardware. hospitalization complicated when patient was noted to have left upper ext weakness and brain mri showed small post periventricular infarct. She is being followed by neurology and cardiology. Patient remains on IV antibiotics and WBC remains elevated. Patient for a peg tube placement by IR for poor appetite and to aide in wound healing. Leukocytosis @ 18.1. She will need a total of 4 more weeks of Iv antibiotics per ID. asa is being held for peg tube placement. last given on 05/24/2020 reached out to neurology who advised re start of asa once procedure is completed. unable to give lipitor as it interacts with daptomycin. covid status: negative per serologies: 04/17, 04/24 an 05/21. Period Temp Pulse Resp BP Sys/Lepe Pulse Ox Last 24 Hr 97.4 F-98.1 F 70-97 18-19 128-161/52-73 95-97 GENERAL: awake, weak appearing, answers questions appropriately HEAD: Normal with no signs of trauma. EYES: PERRL, legally blind both eyes sclera anicteric, conjunctiva clear. No ptosis. ENT: Ears normal, nares patent, oropharynx clear without exudates NECK: Trachea midline, full range of motion, supple. LUNGS: lungs diminished at the bases, no wheezes, rhonchi, or rales, good chest expansion, tolerating room air. SPINE: wound vac in place HEART: Regular rate and rhythm, no m/r/g, normal s1s2 ABDOMEN: Soft, nontender, nondistended, normoactive bowel sounds, no guarding EXTREMITIES: no edema. unstageable wound of right heel. left hand contracted, able to move right arm, but difficulty moving left arm. NEUROLOGICAL: Normal speech, gait not observed. PSYCH: calm, cooperative, normal mood Laboratory Results - last 24 hr 05/24/20 10:50 PT with INR 14.10 H INR 1.19 H Active Medications Generic Name Dose Route Start Last Admin Trade Name Freq PRN Reason Stop Dose Admin Acetaminophen 650 mg 05/16/20 20:58 05/22/20 21:45 Tylenol - PO 650 mg Q6H PRN Administration Fever Amino Acids 30 ml 05/20/20 01:07 05/25/20 06:00 Prosource No Carb Liquid Pkt PO 30 ml TIDAC JAYE Administration Amlodipine Besylate 10 mg 05/21/20 10:00 05/24/20 10:57 Norvasc - PO 10 mg DAILY JAYE Administration Ascorbic Acid 500 mg 05/16/20 22:00 05/24/20 21:29 Vitamin C - PO 500 mg BID JAYE Administration Atorvastatin Calcium 20 mg 05/16/20 22:00 Lipitor - PO HS JAYE Citalopram Hydrobromide 20 mg 05/16/20 22:00 05/24/20 21:28 Celexa - PO 20 mg HS JAYE Administration Collagenase 1 applic 05/17/20 10:00 05/24/20 10:58 Santyl - TP 1 applic DAILY JAYE Administration Protocol Docusate Sodium 100 mg 05/18/20 11:15 05/24/20 21:30 Colace Liquid - PO 100 mg BID JAYE Administration Daptomycin 500 mg/ Sodium 50 mls @ 50 mls/hr 05/17/20 16:00 05/24/20 16:05 Chloride IVPB 50 mls/hr Q24H JAYE Administration Protocol Meropenem 1 gm/ Dextrose 100 mls @ 200 mls/hr 05/17/20 02:00 05/25/20 01:03 IVPB 200 mls/hr Q8H-IV JAYE Administration Dextrose/Sodium Chloride 1,000 mls @ 30 mls/hr 05/16/20 23:15 05/25/20 00:12 D5-1/2ns - IV Not Given ASDIR JAYE Metoprolol Succinate 12.5 mg 05/24/20 10:00 05/24/20 10:58 Toprol Xl - PO 12.5 mg DAILY JAYE Administration Mirtazapine 7.5 mg 05/16/20 22:00 05/24/20 21:29 Remeron - PO 7.5 mg HS JAYE Administration Multivitamins/Minerals 15 ml 05/17/20 10:00 05/24/20 10:57 Certavite-Antioxidant Liquid PO 15 ml DAILY JAYE Administration Nystatin 500,000 units 05/18/20 18:00 05/25/20 06:00 Nystatin Oral Suspension - PO 500,000 units Q6HPO JAYE Administration Ondansetron HCl 4 mg 05/16/20 20:58 Zofran Injection IVPUSH Q6H PRN NAUSEA AND/OR VOMITING Oxycodone HCl 5 mg 05/23/20 10:50 05/25/20 04:46 Roxicodone - PO 5 mg Q6H PRN Administration PAIN LEVEL 7 - 10 Pantoprazole Sodium 40 mg 05/17/20 07:00 05/25/20 06:00 Protonix Packets For Oral Suspension - PO 40 mg ACBK JAYE Administration Polyethylene Glycol 17 gm 05/16/20 20:58 Miralax (For Daily Use) - PO BID PRN CONSTIPATION Senna/Docusate Sodium 1 tablet 05/16/20 20:58 Pericolace - PO BID PRN CONSTIPATION ASSESSMENT/PLAN: Problem List - Problems (1) CVA (cerebral vascular accident) Assessment/Plan: recent infarct seen on brain mri 05/16/2020. on asa, statin therapy (statin being held since it interferes with daptomycin, asa being held for peg tube placement) physical therapy following speech and swallow following aspiration precautions neurology following Code(s): I63.9 - CEREBRAL INFARCTION, UNSPECIFIED (2) Severe sepsis Assessment/Plan: spinal stenosis. s/p removal of L3-L5 hardware, including L4-L5 intervertebral cage, L3-S1 laminectomy, L5-S1 PLIF, L3-S1 posterior instrumented spinal fusion. s/p multiple washouts now with wound vac on daptomycin and meropenem per ID per ID, patient will need 4 more weeks of IV abx per PICC line patient s/p washout 05/12/2020 +leukocytosis, f/u with ortho surgery monitor vitals, labs, mental status Code(s): A41.9 - SEPSIS, UNSPECIFIED ORGANISM; R65.20 - SEVERE SEPSIS WITHOUT SEPTIC SHOCK (3) Unstageable pressure ulcer of right heel Assessment/Plan: unstageable right heel pressure ulcer, purple in color, round. patient denies pain. plan to continue to: - elevate heels at all times. - add santyl daily - vascular evaluated, notes reviewed - monitor wound daily Code(s): L89.610 - PRESSURE ULCER OF RIGHT HEEL, UNSTAGEABLE (4) Poor appetite Assessment/Plan: patient reported to have a poor appetite. peg tube refused before, but being again recommended per surgery to help with wound healing and now agrees aspirin on hold for peg tube placement via IR coags repeated registered route associate consult re: peg tube feed calculations Code(s): R63.0 - ANOREXIA (5) Toxic metabolic encephalopathy Assessment/Plan: mental status has improved patient noted to have an acute stroke per brain mri 05/16/2020 Code(s): G92 - TOXIC ENCEPHALOPATHY (6) Status post spinal surgery Assessment/Plan: Wound culture from 04/23/2020 grew pseudomonas resistant to zosyn and VRE sentivie to daptomycin. Continue daptomycin and meropenem. ID following monitor WBC, fevers, vitals continue wound vac Code(s): Z98.890 - OTHER SPECIFIED POSTPROCEDURAL STATES (7) At risk for dehydration due to poor fluid intake Assessment/Plan: as per nurse, patient is a total feed and needs encouragement to eat and drink. She is on supplements and being followed by an RD for peg tube placement Code(s): Z91.89 - OTH PERSONAL RISK FACTORS, NOT ELSEWHERE CLASSIFIED (8) DVT prophylaxis Assessment/Plan: SCDs asa on hold for peg tube placement heparin once spine surgeon clears Code(s): Z29.9 - ENCOUNTER FOR PROPHYLACTIC MEASURES, UNSPECIFIED (9) Prophylactic measure Assessment/Plan: fen monitor electrolytes dietary following full code Code(s): Z29.9 - ENCOUNTER FOR PROPHYLACTIC MEASURES, UNSPECIFIED Visit type - Emergency Visit Emergency Visit: Yes ED Registration Date: 04/09/20 Care time: The patient presented to the Emergency Department on the above date and was hospitalized for further evaluation of their emergent condition. - New Patient This patient is new to me today: No - Critical Care Critical Care patient: No - Discharge Referral Referred to [facility] Med P.C[facility] No - Medication Review Med list reviewed for High Risk Meds patients 65 and older: Yes
[2020-05-25] MEDS: amLODIPine BESYLATE 10 MG TABLET (FP) PO SCH (10:37)
[2020-05-25] MEDS: DOCUSATE NA 100 MG/10 ML UNIT-DOSE CUPS PO SCH ×2 (10:37→21:11)
[2020-05-25] MEDS: COLLAGENASE CLOSTRIDIUM HIST. 30 GRAMS TUBE TP SCH (10:38)
[2020-05-25] MEDS: metoPROLOL SUCCINATE 25 MG TAB.SR.24H (FP) PO SCH (10:38)
[2020-05-25] MEDS: ASCORBIC ACID 500 MG TABLET (FP) PO SCH ×2 (10:38→21:11)
[2020-05-25] MEDS ORDERED: PT OWN MED DRAWER 7, Y5N ONE (11:17)
[2020-05-25] MEDS: MULTIVIT-MINERALS ORAL LIQUID PO SCH (11:20)
[2020-05-25 11:57] LABS: BASO % 0.4 % (0-2.0); EOS % 9.5 % (0-4.5); HEMATOCRIT 29.9 % (32.4-45.2); HEMOGLOBIN 9.6 GM/dL (10.7-15.3); LYMPH % 7.8 % (8-40); MCH 26.6 pg (25.7-33.7); MCHC 32.2 g/dl (32.0-36.0); MEAN CELL VOLUME 82.7 fl (80-96); MEAN PLT VOLUME 8.3 fl (7.5-11.1); MONO % 3.1 % (3.8-10.2); NEUT % 79.2 % (42.8-82.8); PLATELET COUNT 522 K/MM3 (134-434); RBC 3.62 M/mm3 (3.60-5.2); RDW 15.7 % (11.6-15.6); WHITE BLOOD COUNT 18.1 K/mm3 (4.0-10.0)
[2020-05-25 12:18] LABS: ALBUMIN 2.1 g/dl (3.4-5.0); BILIRUBIN,TOTAL 0.2 mg/dL (0.2-1); BLOOD UREA NITROGEN 26.4 mg/dL (7-18); CALCIUM 9.3 mg/dL (8.5-10.1); CREATININE 0.6 mg/dL (0.55-1.3); POTASSIUM 4.2 mmol/L (3.5-5.1)
--- NOTE | 2020-05-25 13:19 | PN ---
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, Physician History of Present Illness: stable no new issues - Current Medication List Current Medications: Active Medications Acetaminophen (Tylenol -) 650 mg PO Q6H PRN PRN Reason: Fever Last Admin: 05/22/20 21:45 Dose: 650 mg Documented by: Amino Acids (Prosource No Carb Liquid Pkt) 30 ml PO TIDAC [facility] Last Admin: 05/25/20 10:38 Dose: 30 ml Documented by: Amlodipine Besylate (Norvasc -) 10 mg PO DAILY [facility] Last Admin: 05/25/20 10:37 Dose: 10 mg Documented by: Ascorbic Acid (Vitamin C -) 500 mg PO BID [facility] Last Admin: 05/25/20 10:38 Dose: 500 mg Documented by: Atorvastatin Calcium (Lipitor -) 20 mg PO [facility] Citalopram Hydrobromide (Celexa -) 20 mg PO HS [facility] Last Admin: 05/24/20 21:28 Dose: 20 mg Documented by: Collagenase (Santyl -) 1 applic TP DAILY [facility]; Protocol Last Admin: 05/25/20 10:38 Dose: 1 applic Documented by: Docusate Sodium (Colace Liquid -) 100 mg PO BID [facility] Last Admin: 05/25/20 10:37 Dose: 100 mg Documented by: Daptomycin 500 mg/ Sodium (Chloride) 50 mls @ 50 mls/hr IVPB Q24H [facility]; Protocol Last Admin: 05/24/20 16:05 Dose: 50 mls/hr Documented by: Meropenem 1 gm/ Dextrose 100 mls @ 200 mls/hr IVPB Q8H-IV JAYE Last Admin: 05/25/20 10:37 Dose: 200 mls/hr Documented by: Dextrose/Sodium Chloride (D5-1/2ns -) 1,000 mls @ 30 mls/hr IV ASDIR [facility] Last Admin: 05/25/20 00:12 Dose: Not Given Documented by: Metoprolol Succinate (Toprol Xl -) 12.5 mg PO DAILY [facility] Last Admin: 05/25/20 10:38 Dose: 12.5 mg Documented by: Mirtazapine (Remeron -) 7.5 mg PO HS [facility] Last Admin: 05/24/20 21:29 Dose: 7.5 mg Documented by: Multivitamins/Minerals (Certavite-Antioxidant Liquid) 15 ml PO DAILY [facility] Last Admin: 05/25/20 11:20 Dose: 15 ml Documented by: Nystatin (Nystatin Oral Suspension -) 500,000 units PO Q6HPO [facility] Last Admin: 05/25/20 11:20 Dose: 500,000 units Documented by: Ondansetron HCl (Zofran Injection) 4 mg IVPUSH Q6H PRN PRN Reason: NAUSEA AND/OR VOMITING Oxycodone HCl (Roxicodone -) 5 mg PO Q6H PRN PRN Reason: PAIN LEVEL 7 - 10 Last Admin: 05/25/20 04:46 Dose: 5 mg Documented by: Pantoprazole Sodium (Protonix Packets For Oral Suspension -) 40 mg PO ACBK [facility] Last Admin: 05/25/20 06:00 Dose: 40 mg Documented by: Polyethylene Glycol (Miralax (For Daily Use) -) 17 gm PO BID PRN PRN Reason: CONSTIPATION Senna/Docusate Sodium (Pericolace -) 1 tablet PO BID PRN PRN Reason: CONSTIPATION - Objective Vital Signs: Vital Signs Temperature 97.4 F L 05/25/20 05:33 Pulse Rate 70 05/25/20 05:33 Respiratory Rate 18 05/25/20 05:33 Blood Pressure 128/60 05/25/20 05:33 O2 Sat by Pulse Oximetry (%) 96 05/25/20 05:33 Constitutional: Yes: No Distress, Calm Respiratory: Yes: Regular, CTA Bilaterally Gastrointestinal: Yes: Normal Bowel Sounds, Soft Musculoskeletal: Yes: WNL Extremities: Yes: Other Wound/Incision: Yes: Dressing Dry and Intact, Other Neurological: Yes: Alert Psychiatric: Yes: Alert Labs: CBC, BMP 05/25/20 11:15 05/25/20 11:15 INR, PTT INR 1.19 (0.83-1.09) H 05/24/20 10:50 Assessment/Plan Problem List - Problems (1) Severe sepsis Code(s): A41.9 - SEPSIS, UNSPECIFIED ORGANISM; R65.20 - SEVERE SEPSIS WITHOUT SEPTIC SHOCK (2) Bacteremia due to Gram-negative bacteria Code(s): R78.81 - BACTEREMIA (3) Status post spinal surgery Code(s): Z98.890 - OTHER SPECIFIED POSTPROCEDURAL STATES (4) Toxic metabolic encephalopathy Code(s): G92 - TOXIC ENCEPHALOPATHY (5) Urinary tract infection Code(s): N39.0 - URINARY TRACT INFECTION, SITE NOT SPECIFIED Qualifiers: Urinary tract infection type: site unspecified Hematuria presence: without hematuria Qualified Code(s): N39.0 - Urinary tract infection, site not specified Assessment/Plan 79 y.o. female with PMH of dementia, HTN, depression, lumbar stenosis s/p laminectomy, neuropathy who underwent removal of L3-L5 hardware, L3-S1 laminectomies, L5-S1 PLIF/L3-S1 PSIF on 04/09/20 and noted to develop fever up to 101.8F and increase in wbc to 16.8K along with lethargy and mild hypotension Severe Sepsis Gram negative/E. coli Bacteremia Pseudomonas UTI s/p lumbar wound I+D, s/p washout/wound vac placement plan ct current mgmt abx wound care complete the course rest as per the team
[2020-05-25] MEDS: DAPTOMYCIN 500 MG in SODIUM CHLORIDE 50 ML IVPB SCH (18:16)
[2020-05-25] MEDS: CITALOPRAM HYDROBROMIDE 20 MG TABLET PO SCH (21:11)
[2020-05-25] MEDS: MIRTAZAPINE 15 MG TABLET (FP) PO SCH (21:11)
[2020-05-26] MEDS ORDERED: DEXTROSE 5%-WATER 100 ML IVPB ONE ×3 (00:26→17:10)
[2020-05-26] MEDS ORDERED: MEROPENEM 1 GM VIAL (RESTRICTED TO ID) IVPB ONE ×3 (00:26→17:10)
[2020-05-26] MEDS: DEXTROSE 5%-0.45% SALINE 1,000 ML IV SCH ×2 (01:20→23:39)
[2020-05-26] MEDS: MEROPENEM 1 GM in DEXTROSE 5%-WATER 100 ML IVPB SCH ×3 (01:20→17:45)
[2020-05-26] MEDS: PANTOPRAZOLE SOD 40 MG SUSPENSION PACKET PO SCH (06:01)
[2020-05-26] MEDS: NYSTATIN 500,000 UNITS/5 ML SUSPENSION PO SCH ×4 (06:01→23:40)
[2020-05-26] MEDS: AMINO ACIDS/PROTEIN HYDROLYS 30 ML LIQUID.PKT PO SCH ×3 (06:01→17:29)
[2020-05-26] MEDS: oxyCODONE HCL 5 MG TABLET PO PRN (07:02)
[2020-05-26 08:47] LABS: BASO % 0.2 % (0-2.0); EOS % 12.6 % (0-4.5); HEMATOCRIT 32.1 % (32.4-45.2); HEMOGLOBIN 10.2 GM/dL (10.7-15.3); LYMPH % 7.6 % (8-40); MCHC 31.7 g/dl (32.0-36.0); MEAN CELL VOLUME 82.1 fl (80-96); MEAN PLT VOLUME 8.2 fl (7.5-11.1); MONO % 3.8 % (3.8-10.2); NEUT % 75.8 % (42.8-82.8); PLATELET COUNT 567 K/MM3 (134-434); RBC 3.91 M/mm3 (3.60-5.2); RDW 16.4 % (11.6-15.6); WHITE BLOOD COUNT 16.6 K/mm3 (4.0-10.0)
[2020-05-26 09:03] LABS: ALBUMIN 2.1 g/dl (3.4-5.0); BLOOD UREA NITROGEN 23.1 mg/dL (7-18); CALCIUM 9.7 mg/dL (8.5-10.1); CREATININE 0.6 mg/dL (0.55-1.3); MAGNESIUM 2.1 mg/dL (1.8-2.4); POTASSIUM 4.1 mmol/L (3.5-5.1)
[2020-05-26 09:05] LABS: BILIRUBIN,TOTAL 0.3 mg/dL (0.2-1); TOT PROT 7.1 g/dl (6.4-8.2)
[2020-05-26] MEDS ORDERED: PT OWN MED DRAWER 7, Y5N ONE (10:12)
[2020-05-26] MEDS: amLODIPine BESYLATE 10 MG TABLET (FP) PO SCH (10:28)
[2020-05-26] MEDS: ASCORBIC ACID 500 MG TABLET (FP) PO SCH ×2 (10:28→22:09)
[2020-05-26] MEDS: MULTIVIT-MINERALS ORAL LIQUID PO SCH (10:28)
[2020-05-26] MEDS: metoPROLOL SUCCINATE 25 MG TAB.SR.24H (FP) PO SCH (10:28)
[2020-05-26] MEDS: DOCUSATE NA 100 MG/10 ML UNIT-DOSE CUPS PO SCH ×2 (10:28→22:08)
[2020-05-26] MEDS: COLLAGENASE CLOSTRIDIUM HIST. 30 GRAMS TUBE TP SCH (10:29)
--- NOTE | 2020-05-26 11:15 | PN ---
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 (short form) - Note 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: Chief Complaint: no CP/SOB/palps TELE: sr - Current Medication List Current Medications Generic Name Dose Route Start Last Admin Trade Name Freq PRN Reason Stop Dose Admin Acetaminophen 650 mg 05/16/20 20:58 05/22/20 21:45 Tylenol - PO 650 mg Q6H PRN Administration Fever Amino Acids 30 ml 05/20/20 01:07 05/26/20 10:28 Prosource No Carb Liquid Pkt PO 30 ml TIDAC JAYE Administration Amlodipine Besylate 10 mg 05/21/20 10:00 05/26/20 10:28 Norvasc - PO 10 mg DAILY JAYE Administration Ascorbic Acid 500 mg 05/16/20 22:00 05/26/20 10:28 Vitamin C - PO 500 mg BID JAYE Administration Atorvastatin Calcium 20 mg 05/16/20 22:00 Lipitor - PO HS JAYE Citalopram Hydrobromide 20 mg 05/16/20 22:00 05/25/20 21:11 Celexa - PO 20 mg HS JAYE Administration Collagenase 1 applic 05/17/20 10:00 05/26/20 10:29 Santyl - TP 1 applic DAILY JAYE Administration Protocol Docusate Sodium 100 mg 05/18/20 11:15 05/26/20 10:28 Colace Liquid - PO 100 mg BID JAYE Administration Daptomycin 500 mg/ Sodium 50 mls @ 50 mls/hr 05/17/20 16:00 05/25/20 18:16 Chloride IVPB 50 mls/hr Q24H JAYE Administration Protocol Meropenem 1 gm/ Dextrose 100 mls @ 200 mls/hr 05/17/20 02:00 05/26/20 10:28 IVPB 200 mls/hr Q8H-IV JAYE Administration Dextrose/Sodium Chloride 1,000 mls @ 30 mls/hr 05/16/20 23:15 05/26/20 01:20 D5-1/2ns - IV 30 mls/hr ASDIR JAYE Administration Metoprolol Succinate 12.5 mg 05/24/20 10:00 05/26/20 10:28 Toprol Xl - PO 12.5 mg DAILY JAYE Administration Mirtazapine 7.5 mg 05/16/20 22:00 05/25/20 21:11 Remeron - PO 7.5 mg HS JAYE Administration Multivitamins/Minerals 15 ml 05/17/20 10:00 05/26/20 10:28 Certavite-Antioxidant Liquid PO 15 ml DAILY JAYE Administration Nystatin 500,000 units 05/18/20 18:00 05/26/20 06:01 Nystatin Oral Suspension - PO 500,000 units Q6HPO JAYE Administration Ondansetron HCl 4 mg 05/16/20 20:58 Zofran Injection IVPUSH Q6H PRN NAUSEA AND/OR VOMITING Oxycodone HCl 5 mg 05/23/20 10:50 05/26/20 07:02 Roxicodone - PO 5 mg Q6H PRN Administration PAIN LEVEL 7 - 10 Pantoprazole Sodium 40 mg 05/17/20 07:00 05/26/20 06:01 Protonix Packets For Oral Suspension - PO 40 mg ACBK JAYE Administration Polyethylene Glycol 17 gm 05/16/20 20:58 Miralax (For Daily Use) - PO BID PRN CONSTIPATION Senna/Docusate Sodium 1 tablet 05/16/20 20:58 Pericolace - PO BID PRN CONSTIPATION Vital Signs Period Temp Pulse Resp BP Sys/Lepe Pulse Ox Last 24 Hr 97.7 F-98.1 F 73-98 16-20 123-151/61-83 95-97 Constitutional: Yes: No Distress Cardiovascular: Yes: Regular Rate and Rhythm Respiratory: Yes: CTA Bilaterally Gastrointestinal: Yes: Soft (nt) Edema: No Neurological: Yes: Other (left sided weakness) Labs: CBC, BMP 05/26/20 08:10 05/26/20 08:10 - ....Imaging EKG: Image Reviewed Assessment/Plan DATA: echo 05/2020: nl lv/rv, mild as carotid: mild dz, no sig stenosis a/p: 80 f hx htn, hld, here for elective spine surgery. htn: -cont ccb, bb hld: -cont statin cva: -cont statin, bp control -echo and carotids unremarkable -neuro following svt: -tele showed brief episodes of PAT. Pt asymptomatic and echo unremarkable so this is benign finding. Cont bb, monitor tele.
[2020-05-26] MEDS: DAPTOMYCIN 500 MG in SODIUM CHLORIDE 50 ML IVPB SCH (15:49)
--- NOTE | 2020-05-26 19:55 | PN ---
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, Physician History of Present Illness: seen and examined at bedside during my rounds. She endorses she is feeling well. no complaints. denies nausea vomiting fever chills chest pain or SOB. - Current Medication List Current Medications: Active Medications Acetaminophen (Tylenol -) 650 mg PO Q6H PRN PRN Reason: Fever Last Admin: 05/22/20 21:45 Dose: 650 mg Documented by: Amino Acids (Prosource No Carb Liquid Pkt) 30 ml PO TIDAC [facility] Last Admin: 05/26/20 17:29 Dose: 30 ml Documented by: Amlodipine Besylate (Norvasc -) 10 mg PO DAILY [facility]E Last Admin: 05/26/20 10:28 Dose: 10 mg Documented by: Ascorbic Acid (Vitamin C -) 500 mg PO BID [facility] Last Admin: 05/26/20 10:28 Dose: 500 mg Documented by: Atorvastatin Calcium (Lipitor -) 20 mg PO HS JAYE Citalopram Hydrobromide (Celexa -) 20 mg PO HS [facility] Last Admin: 05/25/20 21:11 Dose: 20 mg Documented by: Collagenase (Santyl -) 1 applic TP DAILY [facility]; Protocol Last Admin: 05/26/20 10:29 Dose: 1 applic Documented by: Docusate Sodium (Colace Liquid -) 100 mg PO BID [facility] Last Admin: 05/26/20 10:28 Dose: 100 mg Documented by: Daptomycin 500 mg/ Sodium (Chloride) 50 mls @ 50 mls/hr IVPB Q24H [facility]E; Protocol Last Admin: 05/26/20 15:49 Dose: 50 mls/hr Documented by: Meropenem 1 gm/ Dextrose 100 mls @ 200 mls/hr IVPB Q8H-IV JAYE Last Admin: 05/26/20 17:45 Dose: 200 mls/hr Documented by: Dextrose/Sodium Chloride (D5-1/2ns -) 1,000 mls @ 30 mls/hr IV ASDIR JAYE Last Admin: 05/26/20 01:20 Dose: 30 mls/hr Documented by: Metoprolol Succinate (Toprol Xl -) 12.5 mg PO DAILY [facility] Last Admin: 05/26/20 10:28 Dose: 12.5 mg Documented by: Mirtazapine (Remeron -) 7.5 mg PO HS [facility] Last Admin: 05/25/20 21:11 Dose: 7.5 mg Documented by: Multivitamins/Minerals (Certavite-Antioxidant Liquid) 15 ml PO DAILY [facility] Last Admin: 05/26/20 10:28 Dose: 15 ml Documented by: Nystatin (Nystatin Oral Suspension -) 500,000 units PO Q6HPO [facility] Last Admin: 05/26/20 17:46 Dose: 500,000 units Documented by: Ondansetron HCl (Zofran Injection) 4 mg IVPUSH Q6H PRN PRN Reason: NAUSEA AND/OR VOMITING Oxycodone HCl (Roxicodone -) 5 mg PO Q6H PRN PRN Reason: PAIN LEVEL 7 - 10 Last Admin: 05/26/20 07:02 Dose: 5 mg Documented by: Pantoprazole Sodium (Protonix Packets For Oral Suspension -) 40 mg PO ACBK [facility] Last Admin: 05/26/20 06:01 Dose: 40 mg Documented by: Polyethylene Glycol (Miralax (For Daily Use) -) 17 gm PO BID PRN PRN Reason: CONSTIPATION Senna/Docusate Sodium (Pericolace -) 1 tablet PO BID PRN PRN Reason: CONSTIPATION - Objective Vital Signs: Vital Signs Temperature 98.6 F 05/26/20 18:00 Pulse Rate 76 05/26/20 18:00 Respiratory Rate 20 05/26/20 18:00 Blood Pressure 146/70 05/26/20 18:00 O2 Sat by Pulse Oximetry (%) 97 05/26/20 18:00 Constitutional: Yes: Well Nourished, No Distress Eyes: Yes: Conjunctiva Clear, EOM Intact HENT: Yes: Atraumatic, Normocephalic Neck: Yes: Supple, Trachea Midline Cardiovascular: Yes: Regular Rate and Rhythm Respiratory: Yes: Regular, CTA Bilaterally Gastrointestinal: Yes: Normal Bowel Sounds, Soft Edema: No Neurological: Yes: Alert, Other (oriented to self only. did not participate in neuro exam) Labs: CBC, BMP 05/26/20 08:10 05/26/20 08:10 INR, PTT INR 1.19 (0.83-1.09) H 05/24/20 10:50 Impression/Plan Impression/Plan: Patient is a 79 year old female with history of hypertension, dementia, depression, spinal stenosis, neuropathy s/p removal of L3-L5 hardware, including L4-L5 intervertebral cage, L3-S1 laminectomy, L5-S1 PLIF, L3-S1 posterior instrumented spinal fusion. s/p multiple washouts and I&Ds as well. now with recent CVA on MRI 05/16/2020 recent infarct seen on brain mri 05/16/2020. on asa, statin therapy (statin being held since it interferes with daptomycin, asa being held for peg tube placement) physical therapy following speech and swallow following aspiration precautions neurology following PEG thursday Severe sepsis spinal stenosis. s/p removal of L3-L5 hardware, including L4-L5 intervertebral cage, L3-S1 laminectomy, L5-S1 PLIF, L3-S1 posterior instrumented spinal fusion. s/p multiple washouts now with wound vac on daptomycin and meropenem per ID per ID, patient will need 4 more weeks of IV abx per PICC line patient s/p washout 05/12/2020 +leukocytosis slightly improved, f/u with ortho surgery monitor vitals, labs, mental status Unstageable pressure ulcer of right heel santyl Poor appetite/anorexia/protein calorie malnutrition PEG on thursday hold ASA for now Toxic/metabolic encephalopathy mental status might be at baseline patient noted to have an acute stroke per brain mri 05/16/2020 Status post spinal surgery Wound culture from 04/23/2020 grew pseudomonas resistant to zosyn and VRE sensitive to daptomycin. Continue daptomycin and meropenem. ID following monitor WBC, fevers, vitals Hold statin while on daptomycin-needs weekly SPK while on daptomycin History of dementia, depression Continue home Mirtazapine, Citalopram DVT PPx SCDs asa on hold for peg tube placement heparin once spine surgeon clears. Visit type - Emergency Visit Emergency Visit: Yes ED Registration Date: 04/09/20 Care time: The patient presented to the Emergency Department on the above date and was hospitalized for further evaluation of their emergent condition. - New Patient This patient is new to me today: No - Critical Care Critical Care patient: No - Medication Review Med list reviewed for High Risk Meds patients 65 and older: Yes
[2020-05-26] MEDS: CITALOPRAM HYDROBROMIDE 20 MG TABLET PO SCH (22:08)
[2020-05-26] MEDS: MIRTAZAPINE 15 MG TABLET (FP) PO SCH (22:08)
[2020-05-27] MEDS ORDERED: MEROPENEM 1 GM VIAL (RESTRICTED TO ID) IVPB ONE ×3 (01:25→17:08)
[2020-05-27] MEDS ORDERED: DEXTROSE 5%-WATER 100 ML IVPB ONE ×3 (01:25→17:08)
[2020-05-27] MEDS: MEROPENEM 1 GM in DEXTROSE 5%-WATER 100 ML IVPB SCH ×3 (01:44→17:15)
[2020-05-27] MEDS: NYSTATIN 500,000 UNITS/5 ML SUSPENSION PO SCH ×3 (06:31→17:16)
[2020-05-27] MEDS: PANTOPRAZOLE SOD 40 MG SUSPENSION PACKET PO SCH (06:34)
[2020-05-27] MEDS: AMINO ACIDS/PROTEIN HYDROLYS 30 ML LIQUID.PKT PO SCH ×3 (06:34→16:19)
[2020-05-27 07:38] LABS: BASO % 0.9 % (0-2.0); EOS % 14.7 % (0-4.5); HEMATOCRIT 30.3 % (32.4-45.2); HEMOGLOBIN 9.7 GM/dL (10.7-15.3); LYMPH % 9.7 % (8-40); MCH 26.4 pg (25.7-33.7); MEAN CELL VOLUME 82.3 fl (80-96); MEAN PLT VOLUME 8.3 fl (7.5-11.1); MONO % 3.9 % (3.8-10.2); NEUT % 70.8 % (42.8-82.8); PLATELET COUNT 558 K/MM3 (134-434); RBC 3.69 M/mm3 (3.60-5.2); RDW 16.3 % (11.6-15.6); WHITE BLOOD COUNT 17.6 K/mm3 (4.0-10.0)
[2020-05-27 07:54] LABS: ALBUMIN 2.2 g/dl (3.4-5.0); BILIRUBIN,TOTAL 0.2 mg/dL (0.2-1); BLOOD UREA NITROGEN 20.4 mg/dL (7-18); CALCIUM 9.9 mg/dL (8.5-10.1); CREATININE 0.7 mg/dL (0.55-1.3); MAGNESIUM 2.2 mg/dL (1.8-2.4); POTASSIUM 4.5 mmol/L (3.5-5.1)
[2020-05-27 08:23] LABS: TOT PROT 7.5 g/dl (6.4-8.2)
[2020-05-27] MEDS ORDERED: PT OWN MED DRAWER 7, Y5N ONE (09:44)
[2020-05-27] MEDS: DOCUSATE NA 100 MG/10 ML UNIT-DOSE CUPS PO SCH ×2 (09:47→22:06)
[2020-05-27] MEDS: ASCORBIC ACID 500 MG TABLET (FP) PO SCH ×2 (09:47→22:06)
[2020-05-27] MEDS: MULTIVIT-MINERALS ORAL LIQUID PO SCH (09:47)
[2020-05-27] MEDS: amLODIPine BESYLATE 10 MG TABLET (FP) PO SCH (09:47)
[2020-05-27] MEDS: metoPROLOL SUCCINATE 25 MG TAB.SR.24H (FP) PO SCH (09:47)
[2020-05-27] MEDS: ACETAMINOPHEN 325 MG TABLET (FP) PO PRN ×2 (09:58→17:40)
--- NOTE | 2020-05-27 10:52 | PN ---
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 (short form) - Note 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: Chief Complaint: no CP/SOB/palps TELE: sr Current Medications Generic Name Dose Route Start Last Admin Trade Name Freq PRN Reason Stop Dose Admin Acetaminophen 650 mg 05/16/20 20:58 05/27/20 09:58 Tylenol - PO 650 mg Q6H PRN Administration Fever Amino Acids 30 ml 05/20/20 01:07 05/27/20 06:34 Prosource No Carb Liquid Pkt PO 30 ml TIDAC JAYE Administration Amlodipine Besylate 10 mg 05/21/20 10:00 05/27/20 09:47 Norvasc - PO 10 mg DAILY JAYE Administration Ascorbic Acid 500 mg 05/16/20 22:00 05/27/20 09:47 Vitamin C - PO 500 mg BID JAYE Administration Atorvastatin Calcium 20 mg 05/16/20 22:00 Lipitor - PO HS JAYE Citalopram Hydrobromide 20 mg 05/16/20 22:00 05/26/20 22:08 Celexa - PO 20 mg HS JAYE Administration Collagenase 1 applic 05/17/20 10:00 05/26/20 10:29 Santyl - TP 1 applic DAILY [facility]AYE Administration Protocol Docusate Sodium 100 mg 05/18/20 11:15 05/27/20 09:47 Colace Liquid - PO 100 mg BID JAYE Administration Daptomycin 500 mg/ Sodium 50 mls @ 50 mls/hr 05/17/20 16:00 05/26/20 15:49 Chloride IVPB 50 mls/hr Q24H JAYE Administration Protocol Meropenem 1 gm/ Dextrose 100 mls @ 200 mls/hr 05/17/20 02:00 05/27/20 09:47 IVPB 200 mls/hr Q8H-IV JAYE Administration Dextrose/Sodium Chloride 1,000 mls @ 30 mls/hr 05/16/20 23:15 05/26/20 23:39 D5-1/2ns - IV Not Given ASDIR JAYE Metoprolol Succinate 12.5 mg 05/24/20 10:00 05/27/20 09:47 Toprol Xl - PO 12.5 mg DAILY [facility]E Administration Mirtazapine 7.5 mg 05/16/20 22:00 05/26/20 22:08 Remeron - PO 7.5 mg HS JAYE Administration Multivitamins/Minerals 15 ml 05/17/20 10:00 08/23/20 09:47 Certavite-Antioxidant Liquid PO 15 ml DAILY [facility]E Administration Nystatin 500,000 units 05/18/20 18:00 05/27/20 06:31 Nystatin Oral Suspension - PO 500,000 units Q6HPO [facility]AYE Administration Ondansetron HCl 4 mg 05/16/20 20:58 Zofran Injection IVPUSH Q6H PRN NAUSEA AND/OR VOMITING Oxycodone HCl 5 mg 05/23/20 10:50 05/26/20 07:02 Roxicodone - PO 5 mg Q6H PRN Administration PAIN LEVEL 7 - 10 Pantoprazole Sodium 40 mg 05/17/20 07:00 05/27/20 06:34 Protonix Packets For Oral Suspension - PO 40 mg ACBK JAYE Administration Polyethylene Glycol 17 gm 05/16/20 20:58 Miralax (For Daily Use) - PO BID PRN CONSTIPATION Senna/Docusate Sodium 1 tablet 05/16/20 20:58 Pericolace - PO BID PRN CONSTIPATION Vital Signs Period Temp Pulse Resp BP Sys/Lepe Pulse Ox Last 24 Hr 97.7 F-98.9 F 76-84 18-20 127-146/58-70 95-99 Constitutional: Yes: No Distress Cardiovascular: Yes: Regular Rate and Rhythm Respiratory: Yes: CTA Bilaterally Gastrointestinal: Yes: Soft (nt) Edema: No Neurological: Yes: Other (left sided weakness) no jaundice diaphoresis awake alert Labs: CBC, BMP 05/27/20 06:05 05/27/20 06:05 - ....Imaging EKG: Image Reviewed Assessment/Plan DATA: echo 05/2020: nl lv/rv, mild as carotid: mild dz, no sig stenosis a/p: 80 f hx htn, hld, here for elective spine surgery. htn: -cont ccb, bb hld: -cont statin cva: -cont statin, bp control -echo and carotids unremarkable -neuro following svt: -tele showed brief episodes of PAT. Pt asymptomatic and echo unremarkable so this is benign finding. Cont bb, tele has been benign.
[2020-05-27] MEDS: COLLAGENASE CLOSTRIDIUM HIST. 30 GRAMS TUBE TP SCH (10:55)
[2020-05-27] MEDS: oxyCODONE HCL 5 MG TABLET PO PRN (11:01)
[2020-05-27] MEDS: DAPTOMYCIN 500 MG in SODIUM CHLORIDE 50 ML IVPB SCH (15:43)
--- NOTE | 2020-05-27 16:51 | PN ---
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, Physician History of Present Illness: seen and examined at bedside during my rounds. She endorses she is feeling okay. no complaints. denies nausea vomiting fever chills chest pain or SOB. Consueloice at bedside and wanted to discuss post PEG plans. She would like to take patient home as she has 24 hour care. Requesting palliative care consult. leukocytosis worsening to 17.6 from 16.6. Patient's dementia/mental status at baseline per niece. - Current Medication List Current Medications: Active Medications Acetaminophen (Tylenol -) 650 mg PO Q6H PRN PRN Reason: Fever Last Admin: 05/27/20 09:58 Dose: 650 mg Documented by: Amino Acids (Prosource No Carb Liquid Pkt) 30 ml PO TIDAC [facility] Last Admin: 05/27/20 16:19 Dose: 30 ml Documented by: Amlodipine Besylate (Norvasc -) 10 mg PO DAILY [facility] Last Admin: 05/27/20 09:47 Dose: 10 mg Documented by: Ascorbic Acid (Vitamin C -) 500 mg PO BID [facility] Last Admin: 05/27/20 09:47 Dose: 500 mg Documented by: Atorvastatin Calcium (Lipitor -) 20 mg PO HS JAYE Citalopram Hydrobromide (Celexa -) 20 mg PO HS [facility] Last Admin: 05/26/20 22:08 Dose: 20 mg Documented by: Collagenase (Santyl -) 1 applic TP DAILY [facility]; Protocol Last Admin: 05/27/20 10:55 Dose: 1 applic Documented by: Docusate Sodium (Colace Liquid -) 100 mg PO BID [facility] Last Admin: 05/27/20 09:47 Dose: 100 mg Documented by: Daptomycin 500 mg/ Sodium (Chloride) 50 mls @ 50 mls/hr IVPB Q24H JAYE; Protocol Last Admin: 05/27/20 15:43 Dose: 50 mls/hr Documented by: Meropenem 1 gm/ Dextrose 100 mls @ 200 mls/hr IVPB Q8H-IV JAYE Last Admin: 05/27/20 09:47 Dose: 200 mls/hr Documented by: Dextrose/Sodium Chloride (D5-1/2ns -) 1,000 mls @ 30 mls/hr IV ASDIR JAYE Last Admin: 05/26/20 23:39 Dose: Not Given Documented by: Metoprolol Succinate (Toprol Xl -) 12.5 mg PO DAILY [facility] Last Admin: 05/27/20 09:47 Dose: 12.5 mg Documented by: Mirtazapine (Remeron -) 7.5 mg PO HS [facility] Last Admin: 05/26/20 22:08 Dose: 7.5 mg Documented by: Multivitamins/Minerals (Certavite-Antioxidant Liquid) 15 ml PO DAILY [facility] Last Admin: 05/27/20 09:47 Dose: 15 ml Documented by: Nystatin (Nystatin Oral Suspension -) 500,000 units PO Q6HPO [facility] Last Admin: 05/27/20 11:03 Dose: 500,000 units Documented by: Ondansetron HCl (Zofran Injection) 4 mg IVPUSH Q6H PRN PRN Reason: NAUSEA AND/OR VOMITING Oxycodone HCl (Roxicodone -) 5 mg PO Q6H PRN PRN Reason: PAIN LEVEL 7 - 10 Last Admin: 05/27/20 11:01 Dose: 5 mg Documented by: Pantoprazole Sodium (Protonix Packets For Oral Suspension -) 40 mg PO ACBK [facility] Last Admin: 05/27/20 06:34 Dose: 40 mg Documented by: Polyethylene Glycol (Miralax (For Daily Use) -) 17 gm PO BID PRN PRN Reason: CONSTIPATION Senna/Docusate Sodium (Pericolace -) 1 tablet PO BID PRN PRN Reason: CONSTIPATION - Objective Vital Signs: Vital Signs Temperature 98.5 F 05/27/20 14:00 Pulse Rate 80 05/27/20 14:00 Respiratory Rate 20 05/27/20 14:00 Blood Pressure 122/58 L 05/27/20 14:00 O2 Sat by Pulse Oximetry (%) 98 05/27/20 14:00 Constitutional: Yes: Well Nourished, No Distress Eyes: Yes: Conjunctiva Clear, EOM Intact HENT: Yes: Atraumatic, Normocephalic Neck: Yes: Supple, Trachea Midline Cardiovascular: Yes: Regular Rate and Rhythm Respiratory: Yes: Regular, CTA Bilaterally Gastrointestinal: Yes: Normal Bowel Sounds, Soft Edema: No. Right heal unstageable ulcer present. Right forearm rash. Neurological: Yes: Alert, Other (oriented to self only. did not participate in neuro exam) Labs: CBC, BMP 05/27/20 06:05 05/27/20 06:05 INR, PTT INR 1.19 (0.83-1.09) H 05/24/20 10:50 Impression/Plan Impression/Plan: Patient is a 79 year old female with history of hypertension, dementia, depression, spinal stenosis, neuropathy s/p removal of L3-L5 hardware, including L4-L5 intervertebral cage, L3-S1 laminectomy, L5-S1 PLIF, L3-S1 posterior instrumented spinal fusion. s/p multiple washouts and I&Ds as well. now with recent CVA on MRI 05/16/2020 recent infarct seen on brain mri 05/16/2020. on asa, statin therapy (statin currently on hold due to being on daptomycin, asa being held for peg tube placement tomorrow) physical therapy following speech and swallow following aspiration precautions neurology following PEG thursday Severe sepsis spinal stenosis. s/p removal of L3-L5 hardware, including L4-L5 intervertebral cage, L3-S1 laminectomy, L5-S1 PLIF, L3-S1 posterior instrumented spinal fusion. s/p multiple washouts now with wound vac on daptomycin and meropenem per ID per ID, patient will need 4 more weeks of IV abx per PICC line patient s/p washout 05/12/2020 leukocytosis worsened today and now 17.6 from 16.6, f/u with ortho surgery monitor vitals, labs, mental status Unstageable pressure ulcer of right heel santyl Rash no new meds started possible contact dermatitis give one dose of benadryl 25mg po PRN Poor appetite/anorexia/protein calorie malnutrition PEG tomorrow NPO past midnight hold ASA for now Toxic/metabolic encephalopathy mental status might be at baseline patient noted to have an acute stroke per brain mri 05/16/2020 Status post spinal surgery Wound culture from 04/23/2020 grew pseudomonas resistant to zosyn and VRE sensitive to daptomycin. Continue daptomycin and meropenem. ID following monitor WBC, fevers, vitals Hold statin while on daptomycin-needs weekly CPK while on daptomycin History of dementia, depression Continue home Mirtazapine, Citalopram at baseline per niece. DVT PPx SCDs asa on hold for peg tube placement heparin once spine surgeon clears. Visit type - Emergency Visit Emergency Visit: Yes ED Registration Date: 04/09/20 Care time: The patient presented to the Emergency Department on the above date and was hospitalized for further evaluation of their emergent condition. - New Patient This patient is new to me today: No - Critical Care Critical Care patient: No - Medication Review Med list reviewed for High Risk Meds patients 65 and older: Yes
[2020-05-27] MEDS: diphenhydrAMINE HCL 25 MG CAPSULE (FP) PO PRN (17:39)
[2020-05-27] MEDS: CITALOPRAM HYDROBROMIDE 20 MG TABLET PO SCH (22:06)
[2020-05-27] MEDS: MIRTAZAPINE 15 MG TABLET (FP) PO SCH (22:06)
[2020-05-27] MEDS ORDERED: diphenhydrAMINE HCL 25 MG CAPSULE (FP) PO ONE (23:01)
[2020-05-28] MEDS: NYSTATIN 500,000 UNITS/5 ML SUSPENSION PO SCH ×5 (00:04→23:00)
[2020-05-28] MEDS: DEXTROSE 5%-0.45% SALINE 1,000 ML IV SCH ×3 (00:04→22:57)
[2020-05-28] MEDS ORDERED: DEXTROSE 5%-WATER 100 ML IVPB ONE ×3 (01:12→16:59)
[2020-05-28] MEDS ORDERED: MEROPENEM 1 GM VIAL (RESTRICTED TO ID) IVPB ONE ×3 (01:12→16:59)
[2020-05-28] MEDS: MEROPENEM 1 GM in DEXTROSE 5%-WATER 100 ML IVPB SCH ×3 (01:14→17:09)
[2020-05-28] MEDS: PANTOPRAZOLE SOD 40 MG SUSPENSION PACKET PO SCH (06:08)
[2020-05-28] MEDS: AMINO ACIDS/PROTEIN HYDROLYS 30 ML LIQUID.PKT PO SCH ×3 (06:08→16:01)
[2020-05-28] MEDS ORDERED: PT OWN MED DRAWER 7, Y5N ONE ×3 (08:45→16:04)
[2020-05-28] MEDS: ACETAMINOPHEN 325 MG TABLET (FP) PO PRN (09:00)
[2020-05-28] MEDS: DOCUSATE NA 100 MG/10 ML UNIT-DOSE CUPS PO SCH ×2 (09:00→22:57)
[2020-05-28] MEDS: MULTIVIT-MINERALS ORAL LIQUID PO SCH (09:00)
[2020-05-28] MEDS: metoPROLOL SUCCINATE 25 MG TAB.SR.24H (FP) PO SCH (09:01)
[2020-05-28] MEDS: amLODIPine BESYLATE 10 MG TABLET (FP) PO SCH (09:01)
[2020-05-28] MEDS: ASCORBIC ACID 500 MG TABLET (FP) PO SCH ×2 (09:02→22:57)
[2020-05-28] MEDS: diphenhydrAMINE HCL 25 MG CAPSULE (FP) PO PRN ×2 (09:04→16:55)
[2020-05-28] MEDS: COLLAGENASE CLOSTRIDIUM HIST. 30 GRAMS TUBE TP SCH (10:22)
--- NOTE | 2020-05-28 10:55 | PN ---
Physical Exam: SUBJECTIVE: Patient seen and examined. denies pain or malaise. OBJECTIVE: Patient is a 80 year old female with a history of hypertension, dementia, depression, spinal stenosis, neuropathy she is s/p removal of L3-L5 hardware, including L4-L5 intervertebral cage, L3-S1 laminectomy, L5-S1 PLIF, L3-S1 posterior instrumented spinal fusion. She is s/p multiple washouts for infected hardware. hospitalization complicated when patient was noted to have left upper ext weakness and brain mri showed small post periventricular infarct. She is being followed by neurology and cardiology. Patient remains on IV antibiotics and WBC remains elevated. Patient for a peg tube placement by IR 05/29/2020 for poor appetite and to aide in wound healing. Leukocytosis @ 17. She will need a total of 4 more weeks of Iv antibiotics per ID. asa is being held for peg tube placement. last given on 05/24/2020 reached out to neurology who advised re start of asa once procedure is completed. unable to give lipitor as it interacts with daptomycin. covid status: negative per serologies: 04/17, 04/24 an 05/21. Period Temp Pulse Resp BP Sys/Lepe Pulse Ox Last 24 Hr 98.0 F-98.6 F 77-82 18-20 119-142/58-77 97-98 GENERAL: awake, weak appearing, answers questions appropriately HEAD: Normal with no signs of trauma. EYES: PERRL, legally blind both eyes sclera anicteric, conjunctiva clear. No ptosis. ENT: Ears normal, nares patent, oropharynx clear without exudates NECK: Trachea midline, full range of motion, supple. LUNGS: lungs diminished at the bases, no wheezes, rhonchi, or rales, good chest expansion, tolerating room air. SPINE: wound vac in place HEART: Regular rate and rhythm, no m/r/g, normal s1s2 ABDOMEN: Soft, nontender, nondistended, normoactive bowel sounds, no guarding EXTREMITIES: no edema. unstageable wound of right heel. left hand contracted, able to move right arm, but difficulty moving left arm. NEUROLOGICAL: Normal speech, gait not observed. PSYCH: calm, cooperative, normal mood SKIN: right buttocks skin shearing, does not appear to be a pressure sore/right heel unsteageable. Active Medications Generic Name Dose Route Start Last Admin Trade Name Freq PRN Reason Stop Dose Admin Acetaminophen 650 mg 05/16/20 20:58 05/28/20 09:00 Tylenol - PO 650 mg Q6H PRN Administration Fever Amino Acids 30 ml 05/20/20 01:07 05/28/20 06:08 Prosource No Carb Liquid Pkt PO Not Given TIDAC JAYE Amlodipine Besylate 10 mg 05/21/20 10:00 05/28/20 09:01 Norvasc - PO 10 mg DAILY JAYE Administration Ascorbic Acid 500 mg 05/16/20 22:00 05/28/20 09:02 Vitamin C - PO 500 mg BID JAYE Administration Atorvastatin Calcium 20 mg 05/16/20 22:00 Lipitor - PO HS JAYE Citalopram Hydrobromide 20 mg 05/16/20 22:00 05/27/20 22:06 Celexa - PO 20 mg HS JAYE Administration Collagenase 1 applic 05/17/20 10:00 05/28/20 10:22 Santyl - TP 1 applic DAILY [facility]E Administration Protocol Diphenhydramine HCl 25 mg 05/27/20 16:58 05/28/20 09:04 Benadryl - PO 25 mg ONCE PRN Administration itching Diphenhydramine HCl 25 mg 05/28/20 08:52 Benadryl - PO Q6H PRN FOR ITCHING Docusate Sodium 100 mg 05/18/20 11:15 05/28/20 09:00 Colace Liquid - PO 100 mg BID JAYE Administration Daptomycin 500 mg/ Sodium 50 mls @ 50 mls/hr 05/17/20 16:00 05/27/20 15:43 Chloride IVPB 50 mls/hr Q24H JAYE Administration Protocol Meropenem 1 gm/ Dextrose 100 mls @ 200 mls/hr 05/17/20 02:00 05/28/20 09:00 IVPB 200 mls/hr Q8H-IV JAYE Administration Dextrose/Sodium Chloride 1,000 mls @ 30 mls/hr 05/16/20 23:15 05/28/20 08:59 D5-1/2ns - IV 30 mls/hr ASDIR JAYE Administration Metoprolol Succinate 12.5 mg 05/24/20 10:00 05/28/20 09:01 Toprol Xl - PO 12.5 mg DAILY [facility]AYE Administration Mirtazapine 7.5 mg 05/16/20 22:00 05/27/20 22:06 Remeron - PO 7.5 mg HS JAYE Administration Multivitamins/Minerals 15 ml 05/17/20 10:00 05/28/20 09:00 Certavite-Antioxidant Liquid PO 15 ml DAILY [facility]E Administration Nystatin 500,000 units 05/18/20 18:00 05/28/20 06:08 Nystatin Oral Suspension - PO Not Given Q6HPO JAYE Ondansetron HCl 4 mg 05/16/20 20:58 Zofran Injection IVPUSH Q6H PRN NAUSEA AND/OR VOMITING Oxycodone HCl 5 mg 05/23/20 10:50 05/27/20 11:01 Roxicodone - PO 5 mg Q6H PRN Administration PAIN LEVEL 7 - 10 Pantoprazole Sodium 40 mg 05/17/20 07:00 05/28/20 06:08 Protonix Packets For Oral Suspension - PO Not Given ACBK JAYE Polyethylene Glycol 17 gm 05/16/20 20:58 Miralax (For Daily Use) - PO BID PRN CONSTIPATION Senna/Docusate Sodium 1 tablet 05/16/20 20:58 Pericolace - PO BID PRN CONSTIPATION ASSESSMENT/PLAN: Problem List - Problems (1) CVA (cerebral vascular accident) Assessment/Plan: recent infarct seen on brain mri 05/16/2020. on asa, statin therapy (statin being held since it interferes with daptomycin, asa being held for peg tube placement) physical therapy following speech and swallow following aspiration precautions neurology following Code(s): I63.9 - CEREBRAL INFARCTION, UNSPECIFIED (2) Severe sepsis Assessment/Plan: spinal stenosis. s/p removal of L3-L5 hardware, including L4-L5 intervertebral cage, L3-S1 laminectomy, L5-S1 PLIF, L3-S1 posterior instrumented spinal fusion. s/p multiple washouts now with wound vac on daptomycin and meropenem per ID per ID, patient will need 4 more weeks of IV abx per PICC line patient s/p washout 05/12/2020 +leukocytosis, f/u with ortho surgery monitor vitals, labs, mental status Code(s): A41.9 - SEPSIS, UNSPECIFIED ORGANISM; R65.20 - SEVERE SEPSIS WITHOUT SEPTIC SHOCK (3) Unstageable pressure ulcer of right heel Assessment/Plan: unstageable right heel pressure ulcer, purple in color, round. patient denies pain. plan to continue to: - elevate heels at all times. - add santyl daily - vascular evaluated, notes reviewed - monitor wound daily Code(s): L89.610 - PRESSURE ULCER OF RIGHT HEEL, UNSTAGEABLE (4) Poor appetite Assessment/Plan: patient reported to have a poor appetite. peg tube refused before, but being again recommended per surgery to help with wound healing and now agrees aspirin on hold for peg tube placement via IR coags repeated registered diet technician consult re: peg tube feed calculations Code(s): R63.0 - ANOREXIA (5) Toxic metabolic encephalopathy Assessment/Plan: mental status has improved patient noted to have an acute stroke per brain mri 05/16/2020 Code(s): G92 - TOXIC ENCEPHALOPATHY (6) Status post spinal surgery Assessment/Plan: Wound culture from 04/23/2020 grew pseudomonas resistant to zosyn and VRE sentivie to daptomycin. Continue daptomycin and meropenem. ID following monitor WBC, fevers, vitals continue wound vac Code(s): Z98.890 - OTHER SPECIFIED POSTPROCEDURAL STATES (7) At risk for dehydration due to poor fluid intake Assessment/Plan: as per nurse, patient is a total feed and needs encouragement to eat and drink. She is on supplements and being followed by an RD for peg tube placement Code(s): Z91.89 - [facility] PERSONAL RISK FACTORS, NOT ELSEWHERE CLASSIFIED (8) Encounter for tube feeding instruction Assessment/Plan: Once peg tube placed will need: pivot 1.5 start @ 20m/hr x 24 hrs and increase 10ml every 6-8 hrs to goal of 55cc/hr x 24 hrs. water flush 35mls. Code(s): Z71.89 - OTHER SPECIFIED COUNSELING (9) Prophylactic measure Assessment/Plan: fen monitor electrolytes dietary following full code Code(s): Z29.9 - ENCOUNTER FOR PROPHYLACTIC MEASURES, UNSPECIFIED (10) DVT prophylaxis Assessment/Plan: SCDs asa on hold for peg tube placement heparin once spine surgeon clears Code(s): Z29.9 - ENCOUNTER FOR PROPHYLACTIC MEASURES, UNSPECIFIED Visit type - Emergency Visit Emergency Visit: Yes ED Registration Date: 04/09/20 Care time: The patient presented to the Emergency Department on the above date and was hospitalized for further evaluation of their emergent condition. - New Patient This patient is new to me today: No - Critical Care Critical Care patient: No - Discharge Referral Referred to [facility] No - Medication Review Med list reviewed for High Risk Meds patients 65 and older: Yes
--- NOTE | 2020-05-28 11:00 | PN ---
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, [employer] - Note 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: Selected Entries 05/24/20 05/24/20 05/25/20 14:08 15:00 11:08 Breakfast 75% 75% 100% Diet Tolerated Well Well Well Lunch 75% 75% Supper Temperature Blood Pressure O2 Sat by Pulse Oximetry (%) Oxygen Delivery Method 05/25/20 05/25/20 05/26/20 14:42 20:17 10:16 Breakfast 75% Diet Tolerated Refused Refused Lunch 0 Supper Temperature Blood Pressure O2 Sat by Pulse Oximetry (%) Oxygen Delivery Method 05/26/20 05/26/20 05/27/20 15:00 23:00 02:38 Breakfast Diet Tolerated Fair Lunch 75% Supper 25% Temperature 97.7 F Blood Pressure 127/58 L O2 Sat by Pulse 95 Oximetry (%) Oxygen Delivery Method 05/27/20 05/27/20 05/27/20 06:00 09:00 09:37 Breakfast 50% Diet Tolerated Fair Lunch Supper Temperature 98.7 F Blood Pressure 134/64 O2 Sat by Pulse 99 96 Oximetry (%) Oxygen Delivery Room Air Method 05/27/20 05/27/20 05/27/20 10:00 14:00 15:00 Breakfast Diet Tolerated Fair Lunch 25% Supper Temperature 97.9 F 98.5 F Blood Pressure 137/74 122/58 L O2 Sat by Pulse 97 98 Oximetry (%) Oxygen Delivery Method 05/27/20 05/27/20 05/27/20 18:00 20:32 21:00 Breakfast Diet Tolerated Refused Lunch Supper 0 Temperature 98.6 F Blood Pressure 135/71 O2 Sat by Pulse 97 97 Oximetry (%) Oxygen Delivery Room Air Method 05/27/20 05/28/20 05/28/20 22:00 02:00 06:00 Breakfast Diet Tolerated Lunch Supper Temperature 98.0 F 98.3 F 98.1 F Blood Pressure 123/63 142/77 119/62 O2 Sat by Pulse 97 Oximetry (%) Oxygen Delivery Method Laboratory Tests 05/25/20 05/26/20 05/27/20 11:15 08:10 06:05 WBC 18.1 H 16.6 H 17.6 H For PEG placement today to provide nutritional support Consider Nocturnal TF with continued po intake mealtime. RD rec
--- NOTE | 2020-05-28 11:22 | PN ---
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 (short form) - Note 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: Chief Complaint: no CP/SOB/palps TELE: sr Current Medications Generic Name Dose Route Start Last Admin Trade Name Freq PRN Reason Stop Dose Admin Acetaminophen 650 mg 05/16/20 20:58 05/28/20 09:00 Tylenol - PO 650 mg Q6H PRN Administration Fever Amino Acids 30 ml 05/20/20 01:07 05/28/20 06:08 Prosource No Carb Liquid Pkt PO Not Given TIDAC JAYE Amlodipine Besylate 10 mg 05/21/20 10:00 05/28/20 09:01 Norvasc - PO 10 mg DAILY JAYE Administration Ascorbic Acid 500 mg 05/16/20 22:00 05/28/20 09:02 Vitamin C - PO 500 mg BID JAYE Administration Atorvastatin Calcium 20 mg 05/16/20 22:00 Lipitor - PO HS JAYE Citalopram Hydrobromide 20 mg 05/16/20 22:00 05/27/20 22:06 Celexa - PO 20 mg HS JAYE Administration Collagenase 1 applic 05/17/20 10:00 05/28/20 10:22 Santyl - TP 1 applic DAILY JAYE Administration Protocol Diphenhydramine HCl 25 mg 05/27/20 16:58 05/28/20 09:04 Benadryl - PO 25 mg ONCE PRN Administration itching Diphenhydramine HCl 25 mg 05/28/20 08:52 Benadryl - PO Q6H PRN FOR ITCHING Docusate Sodium 100 mg 05/18/20 11:15 05/28/20 09:00 Colace Liquid - PO 100 mg BID JAYE Administration Daptomycin 500 mg/ Sodium 50 mls @ 50 mls/hr 05/17/20 16:00 05/27/20 15:43 Chloride IVPB 50 mls/hr Q24H JAYE Administration Protocol Meropenem 1 gm/ Dextrose 100 mls @ 200 mls/hr 05/17/20 02:00 05/28/20 09:00 IVPB 200 mls/hr Q8H-IV JAYE Administration Dextrose/Sodium Chloride 1,000 mls @ 30 mls/hr 05/16/20 23:15 05/28/20 08:59 D5-1/2ns - IV 30 mls/hr ASDIR JAYE Administration Metoprolol Succinate 12.5 mg 05/24/20 10:00 08/24/20 09:01 Toprol Xl - PO 12.5 mg DAILY JAYE Administration Mirtazapine 7.5 mg 05/16/20 22:00 05/27/20 22:06 Remeron - PO 7.5 mg HS JAYE Administration Multivitamins/Minerals 15 ml 05/17/20 10:00 05/28/20 09:00 Certavite-Antioxidant Liquid PO 15 ml DAILY JAYE Administration Nystatin 500,000 units 05/18/20 18:00 05/28/20 06:08 Nystatin Oral Suspension - PO Not Given Q6HPO JAYE Ondansetron HCl 4 mg 05/16/20 20:58 Zofran Injection IVPUSH Q6H PRN NAUSEA AND/OR VOMITING Oxycodone HCl 5 mg 05/23/20 10:50 05/27/20 11:01 Roxicodone - PO 5 mg Q6H PRN Administration PAIN LEVEL 7 - 10 Pantoprazole Sodium 40 mg 05/17/20 07:00 05/28/20 06:08 Protonix Packets For Oral Suspension - PO Not Given ACBK JAYE Polyethylene Glycol 17 gm 05/16/20 20:58 Miralax (For Daily Use) - PO BID PRN CONSTIPATION Senna/Docusate Sodium 1 tablet 05/16/20 20:58 Pericolace - PO BID PRN CONSTIPATION Vital Signs Period Temp Pulse Resp BP Sys/Lepe Pulse Ox Last 24 Hr 98.0 F-98.6 F 77-82 18-20 119-142/58-77 97-98 Constitutional: Yes: No Distress Cardiovascular: Yes: Regular Rate and Rhythm Respiratory: Yes: CTA Bilaterally Gastrointestinal: Yes: Soft (nt) Edema: No Neurological: Yes: Other (left sided weakness) no jaundice diaphoresis awake alert Labs: CBC, BMP 05/27/20 06:05 05/27/20 06:05 - ....Imaging EKG: Image Reviewed Assessment/Plan DATA: echo 05/2020: nl lv/rv, mild as carotid: mild dz, no sig stenosis a/p: 80 f hx htn, hld, here for elective spine surgery. htn: -cont ccb, bb hld: -cont statin cva: -cont statin, bp control -echo and carotids unremarkable -neuro following svt: -tele showed brief episodes of PAT. Pt asymptomatic and echo unremarkable so this is benign finding. Cont bb, tele has been benign.
--- NOTE | 2020-05-28 12:06 | PN ---
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 (short form) - Note 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: Patient remains bedridden Apyrexial [facility] 17 Neuro Affect and orientation mental status unchanged L hemiplegia unchanged Wound VAC in situ IR going ahead with peg tube PLAN Requires a vac change Problem relates to anticoagulation Await anesthesia consult
[2020-05-28 12:18] LABS: BASO % 0.4 % (0-2.0); EOS % 13.6 % (0-4.5); HEMATOCRIT 30.3 % (32.4-45.2); HEMOGLOBIN 9.8 GM/dL (10.7-15.3); LYMPH % 7.2 % (8-40); MCH 26.7 pg (25.7-33.7); MCHC 32.3 g/dl (32.0-36.0); MEAN CELL VOLUME 82.7 fl (80-96); MEAN PLT VOLUME 8.3 fl (7.5-11.1); MONO % 3.5 % (3.8-10.2); NEUT % 75.3 % (42.8-82.8); PLATELET COUNT 520 K/MM3 (134-434); RBC 3.66 M/mm3 (3.60-5.2); RDW 16.3 % (11.6-15.6); WHITE BLOOD COUNT 16.6 K/mm3 (4.0-10.0)
[2020-05-28 12:24] LABS: INR 1.14 (0.83-1.09); PROTHROMBIN TIME (PATIENT) 13.5 SEC (9.7-13.0)
[2020-05-28 12:54] LABS: ALBUMIN 2.1 g/dl (3.4-5.0); BLOOD UREA NITROGEN 22.6 mg/dL (7-18); CALCIUM 9.9 mg/dL (8.5-10.1); POTASSIUM 4.2 mmol/L (3.5-5.1)
[2020-05-28 12:57] LABS: BILIRUBIN,TOTAL 0.3 mg/dL (0.2-1); CREATININE 0.6 mg/dL (0.55-1.3); MAGNESIUM 2.3 mg/dL (1.8-2.4); TOT PROT 6.9 g/dl (6.4-8.2)
--- NOTE | 2020-05-28 13:49 | PN ---
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, Physician History of Present Illness: no new issues wbc still high - Current Medication List Current Medications: Active Medications Acetaminophen (Tylenol -) 650 mg PO Q6H PRN PRN Reason: Fever Last Admin: 05/28/20 09:00 Dose: 650 mg Documented by: Amino Acids (Prosource No Carb Liquid Pkt) 30 ml PO TIDAC [facility] Last Admin: 05/28/20 12:07 Dose: 30 ml Documented by: Amlodipine Besylate (Norvasc -) 10 mg PO DAILY [facility] Last Admin: 05/28/20 09:01 Dose: 10 mg Documented by: Ascorbic Acid (Vitamin C -) 500 mg PO BID [facility] Last Admin: 05/28/20 09:02 Dose: 500 mg Documented by: Atorvastatin Calcium (Lipitor -) 20 mg PO JAYE Citalopram Hydrobromide (Celexa -) 20 mg PO HS [facility] Last Admin: 05/27/20 22:06 Dose: 20 mg Documented by: Collagenase (Santyl -) 1 applic TP DAILY [facility]; Protocol Last Admin: 05/28/20 10:22 Dose: 1 applic Documented by: Diphenhydramine HCl (Benadryl -) 25 mg PO ONCE PRN PRN Reason: itching Last Admin: 05/28/20 09:04 Dose: 25 mg Documented by: Diphenhydramine HCl (Benadryl -) 25 mg PO Q6H PRN PRN Reason: FOR ITCHING Docusate Sodium (Colace Liquid -) 100 mg PO BID [facility] Last Admin: 05/28/20 09:00 Dose: 100 mg Documented by: Daptomycin 500 mg/ Sodium (Chloride) 50 mls @ 50 mls/hr IVPB Q24H JAYE; Protocol Last Admin: 05/27/20 15:43 Dose: 50 mls/hr Documented by: Meropenem 1 gm/ Dextrose 100 mls @ 200 mls/hr IVPB Q8H-IV JAYE Last Admin: 05/28/20 09:00 Dose: 200 mls/hr Documented by: Dextrose/Sodium Chloride (D5-1/2ns -) 1,000 mls @ 30 mls/hr IV ASDIR [facility] Last Admin: 05/28/20 08:59 Dose: 30 mls/hr Documented by: Metoprolol Succinate (Toprol Xl -) 12.5 mg PO DAILY [facility] Last Admin: 05/28/20 09:01 Dose: 12.5 mg Documented by: Mirtazapine (Remeron -) 7.5 mg PO HS [facility] Last Admin: 05/27/20 22:06 Dose: 7.5 mg Documented by: Multivitamins/Minerals (Certavite-Antioxidant Liquid) 15 ml PO DAILY [facility] Last Admin: 05/28/20 09:00 Dose: 15 ml Documented by: Nystatin (Nystatin Oral Suspension -) 500,000 units PO Q6HPO [facility] Last Admin: 05/28/20 12:07 Dose: 500,000 units Documented by: Ondansetron HCl (Zofran Injection) 4 mg IVPUSH Q6H PRN PRN Reason: NAUSEA AND/OR VOMITING Oxycodone HCl (Roxicodone -) 5 mg PO Q6H PRN PRN Reason: PAIN LEVEL 7 - 10 Last Admin: 05/27/20 11:01 Dose: 5 mg Documented by: Pantoprazole Sodium (Protonix Packets For Oral Suspension -) 40 mg PO ACBK [facility] Last Admin: 05/28/20 06:08 Dose: Not Given Documented by: Polyethylene Glycol (Miralax (For Daily Use) -) 17 gm PO BID PRN PRN Reason: CONSTIPATION Senna/Docusate Sodium (Pericolace -) 1 tablet PO BID PRN PRN Reason: CONSTIPATION - Objective Vital Signs: Vital Signs Temperature 98.1 F 05/28/20 06:00 Pulse Rate 77 05/28/20 06:00 Respiratory Rate 18 05/28/20 09:00 Blood Pressure 119/62 05/28/20 06:00 O2 Sat by Pulse Oximetry (%) 100 05/28/20 09:00 Constitutional: Yes: No Distress, Calm Cardiovascular: Yes: S1, S2 Respiratory: Yes: Regular, CTA Bilaterally Gastrointestinal: Yes: Normal Bowel Sounds, Soft Musculoskeletal: Yes: WNL Extremities: Yes: Other Wound/Incision: Yes: Other (wound vac in place) Neurological: Yes: Alert Labs: CBC, BMP 05/28/20 11:20 05/28/20 11:20 INR, PTT INR 1.14 (0.83-1.09) H 05/28/20 11:20 Assessment/Plan Problem List - Problems (1) Severe sepsis Code(s): A41.9 - SEPSIS, UNSPECIFIED ORGANISM; R65.20 - SEVERE SEPSIS WITHOUT SEPTIC SHOCK (2) Bacteremia due to Gram-negative bacteria Code(s): R78.81 - BACTEREMIA (3) Status post spinal surgery Code(s): Z98.890 - OTHER SPECIFIED POSTPROCEDURAL STATES (4) Toxic metabolic encephalopathy Code(s): G92 - TOXIC ENCEPHALOPATHY (5) Urinary tract infection Code(s): N39.0 - URINARY TRACT INFECTION, SITE NOT SPECIFIED Qualifiers: Urinary tract infection type: site unspecified Hematuria presence: without hematuria Qualified Code(s): N39.0 - Urinary tract infection, site not specified Assessment/Plan 79 y.o. female with PMH of dementia, HTN, depression, lumbar stenosis s/p laminectomy, neuropathy who underwent removal of L3-L5 hardware, L3-S1 laminectomies, L5-S1 PLIF/L3-S1 PSIF on 04/09/20 and noted to develop fever up to 101.8F and increase in wbc to 16.8K along with lethargy and mild hypotension Severe Sepsis Gram negative/E. coli Bacteremia Pseudomonas UTI s/p lumbar wound I+D, s/p washout/wound vac placement plan ct current mgmt abx wound care complete the course rest as per the team as per neurology
[2020-05-28] MEDS: DAPTOMYCIN 500 MG in SODIUM CHLORIDE 50 ML IVPB SCH (17:40)
[2020-05-28] MEDS: CITALOPRAM HYDROBROMIDE 20 MG TABLET PO SCH (22:57)
[2020-05-28] MEDS: MIRTAZAPINE 15 MG TABLET (FP) PO SCH (22:57)
[2020-05-29] MEDS ORDERED: DEXTROSE 5%-WATER 100 ML IVPB ONE ×3 (01:27→17:20)
[2020-05-29] MEDS ORDERED: MEROPENEM 1 GM VIAL (RESTRICTED TO ID) IVPB ONE ×3 (01:27→17:19)
[2020-05-29] MEDS: MEROPENEM 1 GM in DEXTROSE 5%-WATER 100 ML IVPB SCH ×3 (01:29→18:09)
[2020-05-29] MEDS: PANTOPRAZOLE SOD 40 MG SUSPENSION PACKET PO SCH (06:22)
[2020-05-29] MEDS: AMINO ACIDS/PROTEIN HYDROLYS 30 ML LIQUID.PKT PO SCH ×3 (06:22→17:28)
[2020-05-29] MEDS: NYSTATIN 500,000 UNITS/5 ML SUSPENSION PO SCH ×3 (06:22→17:29)
--- NOTE | 2020-05-29 07:53 | PN ---
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, Physician Chief Complaint: Seen and examined in bed. S/P PEG placement today. Lethargic but responsive to verbal stimuli. 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 History of Present Illness: Patient is a 80 year old female with a history of hypertension, dementia, depression, spinal stenosis, neuropathy she is s/p removal of L3-L5 hardware, including L4-L5 intervertebral cage, L3-S1 laminectomy, L5-S1 PLIF, L3-S1 posterior instrumented spinal fusion. She is s/p multiple washouts for infected hardware. hospitalization complicated when patient was noted to have left upper ext weakness and brain mri showed small post periventricular infarct. She is being followed by neurology and cardiology. - Current Medication List Current Medications: Active Medications Acetaminophen (Tylenol -) 650 mg PO Q6H PRN PRN Reason: Fever Last Admin: 05/28/20 09:00 Dose: 650 mg Documented by: Amino Acids (Prosource No Carb Liquid Pkt) 30 ml PO TIDAC [facility] Last Admin: 05/29/20 06:22 Dose: Not Given Documented by: Amlodipine Besylate (Norvasc -) 10 mg PO DAILY [facility] Last Admin: 05/28/20 09:01 Dose: 10 mg Documented by: Ascorbic Acid (Vitamin C -) 500 mg PO BID [facility] Last Admin: 05/28/20 22:57 Dose: 500 mg Documented by: Atorvastatin Calcium (Lipitor -) 20 mg PO HS [facility] Citalopram Hydrobromide (Celexa -) 20 mg PO HS [facility] Last Admin: 05/28/20 22:57 Dose: 20 mg Documented by: Collagenase (Santyl -) 1 applic TP DAILY [facility]; Protocol Last Admin: 05/28/20 10:22 Dose: 1 applic Documented by: Diphenhydramine HCl (Benadryl -) 25 mg PO ONCE PRN PRN Reason: itching Last Admin: 05/28/20 09:04 Dose: 25 mg Documented by: Diphenhydramine HCl (Benadryl -) 25 mg PO Q6H PRN PRN Reason: FOR ITCHING Last Admin: 05/28/20 16:55 Dose: 25 mg Documented by: Docusate Sodium (Colace Liquid -) 100 mg PO BID [facility] Last Admin: 05/28/20 22:57 Dose: 100 mg Documented by: Daptomycin 500 mg/ Sodium (Chloride) 50 mls @ 50 mls/hr IVPB Q24H [facility]; Protocol Last Admin: 05/28/20 17:40 Dose: 50 mls/hr Documented by: Meropenem 1 gm/ Dextrose 100 mls @ 200 mls/hr IVPB Q8H-IV [facility] Last Admin: 05/29/20 01:29 Dose: 200 mls/hr Documented by: Dextrose/Sodium Chloride (D5-1/2ns -) 1,000 mls @ 30 mls/hr IV ASDIR [facility] Last Admin: 05/28/20 22:57 Dose: Not Given Documented by: Metoprolol Succinate (Toprol Xl -) 12.5 mg PO DAILY [facility] Last Admin: 05/28/20 09:01 Dose: 12.5 mg Documented by: Mirtazapine (Remeron -) 7.5 mg PO HS [facility] Last Admin: 05/28/20 22:57 Dose: 7.5 mg Documented by: Multivitamins/Minerals (Certavite-Antioxidant Liquid) 15 ml PO DAILY [facility] Last Admin: 05/28/20 09:00 Dose: 15 ml Documented by: Nystatin (Nystatin Oral Suspension -) 500,000 units PO Q6HPO [facility] Last Admin: 05/29/20 06:22 Dose: Not Given Documented by: Ondansetron HCl (Zofran Injection) 4 mg IVPUSH Q6H PRN PRN Reason: NAUSEA AND/OR VOMITING Oxycodone HCl (Roxicodone -) 5 mg PO Q6H PRN PRN Reason: PAIN LEVEL 7 - 10 Last Admin: 05/27/20 11:01 Dose: 5 mg Documented by: Pantoprazole Sodium (Protonix Packets For Oral Suspension -) 40 mg PO ACBK [facility] Last Admin: 05/29/20 06:22 Dose: Not Given Documented by: Polyethylene Glycol (Miralax (For Daily Use) -) 17 gm PO BID PRN PRN Reason: CONSTIPATION Senna/Docusate Sodium (Pericolace -) 1 tablet PO BID PRN PRN Reason: CONSTIPATION - Objective Vital Signs: Vital Signs Temperature 97.9 F 05/29/20 06:00 Pulse Rate 70 05/29/20 06:00 Respiratory Rate 18 05/29/20 06:00 Blood Pressure 151/70 05/29/20 06:00 O2 Sat by Pulse Oximetry (%) 98 08/25/20 06:00 Constitutional: Yes: No Distress, Calm, Thin Eyes: Yes: WNL, Conjunctiva Clear HENT: Yes: Other (NGT to right nares) Neck: Yes: WNL, Supple, Trachea Midline Cardiovascular: Yes: WNL, Regular Rate and Rhythm Respiratory: Yes: WNL, Regular, CTA Bilaterally Gastrointestinal: Yes: Other (PEG to suction.) ...Rectal Exam: Yes: Deferred Genitourinary: Yes: WNL, Incontinence Breast(s): Yes: WNL Musculoskeletal: Yes: WNL Extremities: Yes: WNL Edema: No Peripheral Pulses WNL: Yes Peripheral Pulses: Left Radial: 2+, Right Radial: 2+, Left Doralis Pedis: 2+, Right Dorsalis Pedis: 2+, Left Femoral: 2+, Right Femoral: 2+ Integumentary: Yes: Other (right buttocks skin shearing, does not appear to be a pressure sore/right heel unsteageable.) Neurological: Yes: Lethargy (resposive to verbal stimuli) ...Motor Strength: LLE, RLE (generalized weakness) Labs: CBC, BMP 05/28/20 11:20 05/28/20 11:20 INR, PTT INR 1.14 (0.83-1.09) H 05/28/20 11:20 Problem List - Problems (1) COVID-19 ruled out Assessment/Plan: PCR negative Code(s): Z03.818 - ENCNTR FOR OBS FOR SUSP EXPSR TO OTH BIOLG AGENTS RULED OUT (2) Dementia Assessment/Plan: supportive care Code(s): F03.90 - UNSPECIFIED DEMENTIA WITHOUT BEHAVIORAL DISTURBANCE (3) Depression Assessment/Plan: supportive care Code(s): F32.9 - MAJOR DEPRESSIVE DISORDER, SINGLE EPISODE, UNSPECIFIED (4) Hypertension Assessment/Plan: mormotensive c/w norvasc Code(s): I10 - ESSENTIAL (PRIMARY) HYPERTENSION (5) Poor appetite Assessment/Plan: s/p PEG NPO until tmrw can c/w prosource TID, supplements-ensure 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 Continue daptomycin and meropenem. ID following. will need PICC on dc for intermediate designer abx monitor WBC, fevers, vitals Code(s): Z98.890 - OTHER SPECIFIED POSTPROCEDURAL STATES (8) Malnutrition Assessment/Plan: c/w nutritional supplements s/p PEG Code(s): E46 - UNSPECIFIED PROTEIN-CALORIE MALNUTRITION (9) Severe sepsis Assessment/Plan: spinal stenosis s/p removal of L3-L5 hardware, including L4-L5 intervertebral cage, L3-S1 laminectomy, L5-S1 PLIF, L3-S1 posterior instrumented spinal fusion. s/p multiple washouts. c/w daptomycin and meropenem per ID-will need 4 more weeks of IV abx surgery following pain control monitor vitals, labs, mental status Code(s): A41.9 - SEPSIS, UNSPECIFIED ORGANISM; R65.20 - SEVERE SEPSIS WITHOUT SEPTIC SHOCK (10) Toxic metabolic encephalopathy Assessment/Plan: multifactorial mental status has improved and patient able to answer questions appropriately AMS likely secondary to sepsis Code(s): G92 - TOXIC ENCEPHALOPATHY (11) Leukocytosis Assessment/Plan: afebrile wbc 15.6 c/t trend c/w abx Code(s): D72.829 - ELEVATED WHITE BLOOD CELL COUNT, UNSPECIFIED (12) Thrombocytosis Assessment/Plan: plt 469 most likely r/t sepsis c/t trend Code(s): D47.3 - ESSENTIAL (HEMORRHAGIC) THROMBOCYTHEMIA (13) CVA (cerebral vascular accident) Assessment/Plan: recent infarct seen on brain mri 05/16/2020. on asa, statin therapy (statin being held since it interferes with daptomycin, asa being held for peg tube placement) PT following speech and swallow following aspiration precautions neurology following Code(s): I63.9 - CEREBRAL INFARCTION, UNSPECIFIED (14) Severe malnutrition Assessment/Plan: s/p peg c/w supplements TF when able to use PEG Code(s): E43 - UNSPECIFIED SEVERE PROTEIN-CALORIE MALNUTRITION (15) Unstageable pressure ulcer of right heel Assessment/Plan: unstageable right heel pressure ulcer, purple in color, round. patient denies pain. plan to continue to: - elevate heels at all times. - c/w santyl daily - vascular evaluated, notes reviewed - monitor wound daily Code(s): L89.610 - PRESSURE ULCER OF RIGHT HEEL, UNSTAGEABLE Visit type - Emergency Visit Emergency Visit: Yes ED Registration Date: 04/09/20 Care time: The patient presented to the Emergency Department on the above date and was hospitalized for further evaluation of their emergent condition. - New Patient This patient is new to me today: No - Critical Care Critical Care patient: No - Discharge Referral Referred to [facility] No - Medication Review Med list reviewed for High Risk Meds patients 65 and older: Yes
[2020-05-29 10:42] LABS: BASO % 0.9 % (0-2.0); EOS % 14.2 % (0-4.5); HEMATOCRIT 28.9 % (32.4-45.2); HEMOGLOBIN 9.5 GM/dL (10.7-15.3); LYMPH % 7.8 % (8-40); MCH 27.1 pg (25.7-33.7); MCHC 33.1 g/dl (32.0-36.0); MEAN PLT VOLUME 8.3 fl (7.5-11.1); MONO % 4.8 % (3.8-10.2); NEUT % 72.3 % (42.8-82.8); PLATELET COUNT 469 K/MM3 (134-434); RBC 3.52 M/mm3 (3.60-5.2); RDW 16.3 % (11.6-15.6); WHITE BLOOD COUNT 15.6 K/mm3 (4.0-10.0)
[2020-05-29] MEDS: MULTIVIT-MINERALS ORAL LIQUID PO SCH (10:47)
[2020-05-29] MEDS: DOCUSATE NA 100 MG/10 ML UNIT-DOSE CUPS PO SCH ×2 (10:47→22:32)
[2020-05-29] MEDS: amLODIPine BESYLATE 10 MG TABLET (FP) PO SCH (10:47)
[2020-05-29] MEDS: COLLAGENASE CLOSTRIDIUM HIST. 30 GRAMS TUBE TP SCH (10:47)
[2020-05-29] MEDS: metoPROLOL SUCCINATE 25 MG TAB.SR.24H (FP) PO SCH (10:48)
[2020-05-29] MEDS: ASCORBIC ACID 500 MG TABLET (FP) PO SCH ×2 (10:48→22:33)
[2020-05-29 11:05] LABS: BILIRUBIN,TOTAL 0.3 mg/dL (0.2-1); BLOOD UREA NITROGEN 20.4 mg/dL (7-18); CALCIUM 9.5 mg/dL (8.5-10.1); CREATININE 0.6 mg/dL (0.55-1.3); MAGNESIUM 2.2 mg/dL (1.8-2.4); PHOSPHOROUS 3.2 mg/dL (2.5-4.9); TOT PROT 6.7 g/dl (6.4-8.2)
--- NOTE | 2020-05-29 11:52 | PN ---
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 (short form) - Note 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: cc: s/p spine surgery s: no chest pain, dyspnea, palps Current Medications Generic Name Dose Route Start Last Admin Trade Name Freq PRN Reason Stop Dose Admin Acetaminophen 650 mg 05/16/20 20:58 05/28/20 09:00 Tylenol - PO 650 mg Q6H PRN Administration Fever Amino Acids 30 ml 05/20/20 01:07 05/29/20 06:22 Prosource No Carb Liquid Pkt PO Not Given TIDAC JAYE Amlodipine Besylate 10 mg 05/21/20 10:00 05/29/20 10:47 Norvasc - PO Not Given DAILY [facility] Ascorbic Acid 500 mg 05/16/20 22:00 05/29/20 10:48 Vitamin C - PO Not Given BID JAYE Atorvastatin Calcium 20 mg 05/16/20 22:00 Lipitor - PO HS JAYE Citalopram Hydrobromide 20 mg 05/16/20 22:00 05/28/20 22:57 Celexa - PO 20 mg HS JAYE Administration Collagenase 1 applic 05/17/20 10:00 05/29/20 10:47 Santyl - TP 1 applic DAILY [facility] Administration Protocol Diphenhydramine HCl 25 mg 05/27/20 16:58 05/28/20 09:04 Benadryl - PO 25 mg ONCE PRN Administration itching Diphenhydramine HCl 25 mg 05/28/20 08:52 05/28/20 16:55 Benadryl - PO 25 mg Q6H PRN Administration FOR ITCHING Docusate Sodium 100 mg 05/18/20 11:15 05/29/20 10:47 Colace Liquid - PO Not Given BID [facility]AYE Daptomycin 500 mg/ Sodium 50 mls @ 50 mls/hr 05/17/20 16:00 05/28/20 17:40 Chloride IVPB 50 mls/hr Q24H JAYE Administration Protocol Meropenem 1 gm/ Dextrose 100 mls @ 200 mls/hr 05/17/20 02:00 05/29/20 01:29 IVPB 200 mls/hr Q8H-IV [facility]AYE Administration Dextrose/Sodium Chloride 1,000 mls @ 30 mls/hr 05/16/20 23:15 05/28/20 22:57 D5-1/2ns - IV Not Given ASDIR [facility] Metoprolol Succinate 12.5 mg 05/24/20 10:00 05/29/20 10:48 Toprol Xl - PO Not Given DAILY [facility] Mirtazapine 7.5 mg 05/16/20 22:00 05/28/20 22:57 Remeron - PO 7.5 mg HS JAYE Administration Multivitamins/Minerals 15 ml 05/17/20 10:00 05/29/20 10:47 Certavite-Antioxidant Liquid PO Not Given DAILY [facility] Nystatin 500,000 units 05/18/20 18:00 05/29/20 06:22 Nystatin Oral Suspension - PO Not Given Q6HPO [facility] Ondansetron HCl 4 mg 05/16/20 20:58 Zofran Injection IVPUSH Q6H PRN NAUSEA AND/OR VOMITING Oxycodone HCl 5 mg 05/23/20 10:50 05/27/20 11:01 Roxicodone - PO 5 mg Q6H PRN Administration PAIN LEVEL 7 - 10 Pantoprazole Sodium 40 mg 05/17/20 07:00 05/29/20 06:22 Protonix Packets For Oral Suspension - PO Not Given ACBK [facility] Polyethylene Glycol 17 gm 05/16/20 20:58 Miralax (For Daily Use) - PO BID PRN CONSTIPATION Senna/Docusate Sodium 1 tablet 05/16/20 20:58 Pericolace - PO BID PRN CONSTIPATION Vital Signs Period Temp Pulse Resp BP Sys/Lepe Pulse Ox Last 24 Hr 97.4 F-98.4 F 70-81 18-18 105-151/59-73 97-98 Constitutional: Yes: No Distress Cardiovascular: Yes: Regular Rate and Rhythm Respiratory: Yes: CTA Bilaterally Gastrointestinal: Yes: Soft (nt) Edema: No Neurological: Yes: Other (left sided weakness) no jaundice diaphoresis awake alert DATA: echo 05/2020: nl lv/rv, mild as carotid: mild dz, no sig stenosis tele: sinus, brief PSVT a/p: 80 f hx htn, hld, here for elective spine surgery. htn: -cont ccb, bb hld: -statin held - interacts with daptomycin cva: -cont bp control - statin held, interacts with daptomycin - aspirin held for PEG tube placement - planned for today -echo and carotids unremarkable -neuro following svt: -tele showed brief episodes of PAT. Pt asymptomatic and echo unremarkable so this is benign finding. Cont bb
--- NOTE | 2020-05-29 13:12 | PN ---
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, Physician History of Present Illness: stable no new issues - Current Medication List Current Medications: Active Medications Acetaminophen (Tylenol -) 650 mg PO Q6H PRN PRN Reason: Fever Last Admin: 05/28/20 09:00 Dose: 650 mg Documented by: Amino Acids (Prosource No Carb Liquid Pkt) 30 ml PO TIDAC [facility] Last Admin: 05/29/20 12:33 Dose: Not Given Documented by: Amlodipine Besylate (Norvasc -) 10 mg PO DAILY [facility] Last Admin: 05/29/20 10:47 Dose: Not Given Documented by: Ascorbic Acid (Vitamin C -) 500 mg PO BID [facility] Last Admin: 05/29/20 10:48 Dose: Not Given Documented by: Atorvastatin Calcium (Lipitor -) [address] [facility] Citalopram Hydrobromide (Celexa -) 20 mg PO HS [facility] Last Admin: 05/28/20 22:57 Dose: 20 mg Documented by: Collagenase (Santyl -) 1 applic TP DAILY [facility]; Protocol Last Admin: 05/29/20 10:47 Dose: 1 applic Documented by: Diphenhydramine HCl (Benadryl -) 25 mg PO ONCE PRN PRN Reason: itching Last Admin: 05/28/20 09:04 Dose: 25 mg Documented by: Diphenhydramine HCl (Benadryl -) 25 mg PO Q6H PRN PRN Reason: FOR ITCHING Last Admin: 05/28/20 16:55 Dose: 25 mg Documented by: Docusate Sodium (Colace Liquid -) 100 mg PO BID [facility] Last Admin: 05/29/20 10:47 Dose: Not Given Documented by: Daptomycin 500 mg/ Sodium (Chloride) 50 mls @ 50 mls/hr IVPB Q24H [facility]; Protocol Last Admin: 05/28/20 17:40 Dose: 50 mls/hr Documented by: Meropenem 1 gm/ Dextrose 100 mls @ 200 mls/hr IVPB Q8H-IV [facility] Last Admin: 05/29/20 01:29 Dose: 200 mls/hr Documented by: Dextrose/Sodium Chloride (D5-1/2ns -) 1,000 mls @ 30 mls/hr IV ASDIR [facility] Last Admin: 05/28/20 22:57 Dose: Not Given Documented by: Metoprolol Succinate (Toprol Xl -) 12.5 mg PO DAILY [facility] Last Admin: 05/29/20 10:48 Dose: Not Given Documented by: Mirtazapine (Remeron -) 7.5 mg PO HS [facility] Last Admin: 05/28/20 22:57 Dose: 7.5 mg Documented by: Multivitamins/Minerals (Certavite-Antioxidant Liquid) 15 ml PO DAILY [facility] Last Admin: 05/29/20 10:47 Dose: Not Given Documented by: Nystatin (Nystatin Oral Suspension -) 500,000 units PO Q6HPO [facility] Last Admin: 05/29/20 06:22 Dose: Not Given Documented by: Ondansetron HCl (Zofran Injection) 4 mg IVPUSH Q6H PRN PRN Reason: NAUSEA AND/OR VOMITING Oxycodone HCl (Roxicodone -) 5 mg PO Q6H PRN PRN Reason: PAIN LEVEL 7 - 10 Last Admin: 05/27/20 11:01 Dose: 5 mg Documented by: Pantoprazole Sodium (Protonix Packets For Oral Suspension -) 40 mg PO ACBK [facility] Last Admin: 05/29/20 06:22 Dose: Not Given Documented by: Polyethylene Glycol (Miralax (For Daily Use) -) 17 gm PO BID PRN PRN Reason: CONSTIPATION Senna/Docusate Sodium (Pericolace -) 1 tablet PO BID PRN PRN Reason: CONSTIPATION - Objective Vital Signs: Vital Signs Temperature 98.4 F 05/29/20 09:45 Pulse Rate 81 05/29/20 12:27 Respiratory Rate 15 05/29/20 12:27 Blood Pressure 164/79 05/29/20 12:27 O2 Sat by Pulse Oximetry (%) 99 05/29/20 12:27 Constitutional: Yes: No Distress, Calm Cardiovascular: Yes: S1, S2 Respiratory: Yes: Regular, CTA Bilaterally Gastrointestinal: Yes: Normal Bowel Sounds, Soft Musculoskeletal: Yes: Other Extremities: Yes: WNL Wound/Incision: Yes: Other (wound vac in place) Neurological: Yes: Other Psychiatric: Yes: Other Labs: CBC, BMP 05/29/20 09:51 05/29/20 09:51 INR, PTT INR 1.14 (0.83-1.09) H 05/28/20 11:20 Assessment/Plan Problem List - Problems (1) Severe sepsis Code(s): A41.9 - SEPSIS, UNSPECIFIED ORGANISM; R65.20 - SEVERE SEPSIS WITHOUT SEPTIC SHOCK (2) Bacteremia due to Gram-negative bacteria Code(s): R78.81 - BACTEREMIA (3) Status post spinal surgery Code(s): Z98.890 - OTHER SPECIFIED POSTPROCEDURAL STATES (4) Toxic metabolic encephalopathy Code(s): G92 - TOXIC ENCEPHALOPATHY (5) Urinary tract infection Code(s): N39.0 - URINARY TRACT INFECTION, SITE NOT SPECIFIED Qualifiers: Urinary tract infection type: site unspecified Hematuria presence: without hematuria Qualified Code(s): N39.0 - Urinary tract infection, site not specified Assessment/Plan 79 y.o. female with PMH of dementia, HTN, depression, lumbar stenosis s/p laminectomy, neuropathy who underwent removal of L3-L5 hardware, L3-S1 laminectomies, L5-S1 PLIF/L3-S1 PSIF on 04/09/20 and noted to develop fever up to 101.8F and increase in wbc to 16.8K along with lethargy and mild hypotension Severe Sepsis Gram negative/E. coli Bacteremia Pseudomonas UTI s/p lumbar wound I+D, s/p washout/wound vac placement plan ct current mgmt abx wound care complete the course rest as per the team as per neurology
[2020-05-29] MEDS ORDERED: MORPHINE SULFATE 2 MG/ML VIAL IVPUSH ONE (16:21)
--- NOTE | 2020-05-29 16:44 | PROC ---
VAC Application - Indications Surgical A decision was made to utilize Negative Pressure Therapy (VAC) to assist in: expedite wound closure through promotion of granulation tissue formation and/or help with debridement of fibrinous slough thus decreasing need for serial debridements. - Wound description Wound location: Other (Infected lumbar wound; opened surgically) Length (cm): 19 Width (cm): 5 Depth (cm): 5 Wound area (sq cm): 95.00 Wound Description: Muscle exposed: Yes, Tendon exposed: Yes, Bone exposed: Yes, Undermining: No - Device VAC Selection: NPT - Procedure Area cleansed. Prepped/draped. Black foam tailored to fit just inside of wound borders to encourage wound contracture. An occlusive dressing applied. Suction disc placed in location so as not to be uncomfortable for the patient or cause any pressure point (foam bridge to hip as necessary). Good seal as verified by complete foam collapse and no leak on unit monitor. Pressure set to 125 mmHg, continuous. If using Veraflo: Settings: Soak time: 2 mins Volume: 8mL Frequency: Every 2 hours Dressing changes: M-W-F - CPT Code CPT code: [id number] >50 sq cm
[2020-05-29] MEDS ORDERED: PT OWN MED DRAWER 7, Y5N ONE (17:20)
[2020-05-29] MEDS: DAPTOMYCIN 500 MG in SODIUM CHLORIDE 50 ML IVPB SCH (17:28)
[2020-05-29] MEDS: MIRTAZAPINE 15 MG TABLET (FP) PO SCH (22:32)
[2020-05-29] MEDS: CITALOPRAM HYDROBROMIDE 20 MG TABLET PO SCH (22:32)
[2020-05-29] MEDS: oxyCODONE HCL 5 MG TABLET PO PRN (22:33)
[2020-05-30] MEDS ORDERED: MEROPENEM 1 GM VIAL (RESTRICTED TO ID) IVPB ONE ×3 (00:36→17:19)
[2020-05-30] MEDS ORDERED: DEXTROSE 5%-WATER 100 ML IVPB ONE ×3 (00:36→17:19)
[2020-05-30] MEDS: MEROPENEM 1 GM in DEXTROSE 5%-WATER 100 ML IVPB SCH ×3 (01:09→18:38)
[2020-05-30] MEDS: NYSTATIN 500,000 UNITS/5 ML SUSPENSION PO SCH ×4 (01:09→17:31)
[2020-05-30] MEDS: DEXTROSE 5%-0.45% SALINE 1,000 ML IV SCH (05:30)
[2020-05-30] MEDS: PANTOPRAZOLE SOD 40 MG SUSPENSION PACKET PO SCH (06:09)
[2020-05-30] MEDS: AMINO ACIDS/PROTEIN HYDROLYS 30 ML LIQUID.PKT PO SCH ×3 (06:11→17:31)
[2020-05-30 07:58] LABS: BASO % 0.3 % (0-2.0); EOS % 14.3 % (0-4.5); HEMATOCRIT 30.1 % (32.4-45.2); HEMOGLOBIN 9.8 GM/dL (10.7-15.3); LYMPH % 7.7 % (8-40); MCH 26.7 pg (25.7-33.7); MCHC 32.6 g/dl (32.0-36.0); MEAN CELL VOLUME 81.8 fl (80-96); MEAN PLT VOLUME 8.3 fl (7.5-11.1); MONO % 4.6 % (3.8-10.2); NEUT % 73.1 % (42.8-82.8); PLATELET COUNT 464 K/MM3 (134-434); RBC 3.69 M/mm3 (3.60-5.2); RDW 16.5 % (11.6-15.6); WHITE BLOOD COUNT 15.7 K/mm3 (4.0-10.0)
--- NOTE | 2020-05-30 08:21 | PN ---
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, Physician Chief Complaint: Seen and examined in bed. S/P PEG placement yesterday. VAC dressing changed at bedside last night-tolerate well with IV morphine. Remains on IV abx-watermaster. Awaiting final surgical plan for disposition of patient History of Present Illness: Patient is a 80 year old female with a history of hypertension, dementia, depression, spinal stenosis, neuropathy she is s/p removal of L3-L5 hardware, including L4-L5 intervertebral cage, L3-S1 laminectomy, L5-S1 PLIF, L3-S1 posterior instrumented spinal fusion. She is s/p multiple washouts for infected hardware. hospitalization complicated when patient was noted to have left upper ext weakness and brain mri showed small post periventricular infarct. She is being followed by neurology and cardiology. - Current Medication List Current Medications: Active Medications Acetaminophen (Tylenol -) 650 mg PO Q6H PRN PRN Reason: Fever Last Admin: 05/28/20 09:00 Dose: 650 mg Documented by: Amino Acids (Prosource No Carb Liquid Pkt) 30 ml PO TIDAC [facility] Last Admin: 05/30/20 06:11 Dose: 30 ml Documented by: Amlodipine Besylate (Norvasc -) 10 mg PO DAILY [facility] Last Admin: 05/29/20 10:47 Dose: Not Given Documented by: Ascorbic Acid (Vitamin C -) 500 mg PO BID [facility] Last Admin: 05/29/20 22:33 Dose: 500 mg Documented by: Atorvastatin Calcium (Lipitor -) [address] [facility] Citalopram Hydrobromide (Celexa -) [address] [facility] Last Admin: 05/29/20 22:32 Dose: 20 mg Documented by: Collagenase (Santyl -) 1 applic TP DAILY [facility]; Protocol Last Admin: 05/29/20 10:47 Dose: 1 applic Documented by: Diphenhydramine HCl (Benadryl -) 25 mg PO ONCE PRN PRN Reason: itching Last Admin: 05/28/20 09:04 Dose: 25 mg Documented by: Diphenhydramine HCl (Benadryl -) 25 mg PO Q6H PRN PRN Reason: FOR ITCHING Last Admin: 05/28/20 16:55 Dose: 25 mg Documented by: Docusate Sodium (Colace Liquid -) 100 mg PO BID [facility] Last Admin: 08/25/20 22:32 Dose: 100 mg Documented by: Daptomycin 500 mg/ Sodium (Chloride) 50 mls @ 50 mls/hr IVPB Q24H [facility]; Protocol Last Admin: 05/29/20 17:28 Dose: 50 mls/hr Documented by: Meropenem 1 gm/ Dextrose 100 mls @ 200 mls/hr IVPB Q8H-IV [facility] Last Admin: 05/30/20 01:09 Dose: 200 mls/hr Documented by: Dextrose/Sodium Chloride (D5-1/2ns -) 1,000 mls @ 30 mls/hr IV ASDIR [facility] Last Admin: 05/30/20 05:30 Dose: 30 mls/hr Documented by: Metoprolol Succinate (Toprol Xl -) 12.5 mg PO DAILY [facility] Last Admin: 05/29/20 10:48 Dose: Not Given Documented by: Mirtazapine (Remeron -) 7.5 mg PO HS [facility] Last Admin: 05/29/20 22:32 Dose: 7.5 mg Documented by: Multivitamins/Minerals (Certavite-Antioxidant Liquid) 15 ml PO DAILY [facility] Last Admin: 05/29/20 10:47 Dose: Not Given Documented by: Nystatin (Nystatin Oral Suspension -) 500,000 units PO Q6HPO [facility] Last Admin: 05/30/20 06:11 Dose: 500,000 units Documented by: Ondansetron HCl (Zofran Injection) 4 mg IVPUSH Q6H PRN PRN Reason: NAUSEA AND/OR VOMITING Oxycodone HCl (Roxicodone -) 5 mg PO Q6H PRN PRN Reason: PAIN LEVEL 7 - 10 Last Admin: 05/29/20 22:33 Dose: 5 mg Documented by: Pantoprazole Sodium (Protonix Packets For Oral Suspension -) 40 mg PO ACBK [facility] Last Admin: 05/30/20 06:09 Dose: 40 mg Documented by: Polyethylene Glycol (Miralax (For Daily Use) -) 17 gm PO BID PRN PRN Reason: CONSTIPATION Senna/Docusate Sodium (Pericolace -) 1 tablet PO BID PRN PRN Reason: CONSTIPATION - Objective Vital Signs: Vital Signs Temperature 98.4 F 05/30/20 06:00 Pulse Rate 77 05/30/20 06:00 Respiratory Rate 19 05/30/20 06:00 Blood Pressure 134/69 05/30/20 06:00 O2 Sat by Pulse Oximetry (%) 98 05/30/20 06:00 Wound/Incision: Yes: Other Additional Findings/Remarks: Constitutional: Yes: No Distress, Calm, Thin Eyes: Yes: WNL, Conjunctiva Clear HENT: Yes: Other (NGT to right nares) Neck: Yes: WNL, Supple, Trachea Midline Cardiovascular: Yes: WNL, Regular Rate and Rhythm Respiratory: Yes: WNL, Regular, CTA Bilaterally Gastrointestinal: Yes: Other (PEG to suction.) ...Rectal Exam: Yes: Deferred Genitourinary: Yes: WNL, Incontinence Breast(s): Yes: WNL Musculoskeletal: Yes: WNL Extremities: Yes: WNL Edema: No Peripheral Pulses WNL: Yes Peripheral Pulses: Left Radial: 2+, Right Radial: 2+, Left Doralis Pedis: 2+, Right Dorsalis Pedis: 2+, Left Femoral: 2+, Right Femoral: 2+ Integumentary: Yes: Other (right buttocks skin shearing, does not appear to be a pressure sore/right heel unsteageable.) Wound/Incision: Yes: Other (Wound location: Other (Infected lumbar wound; opened surgically) Length (cm): 19 Width (cm): 5 Depth (cm): 5 Wound area (sq cm): 95.00 Wound Description: Muscle exposed: Yes, Tendon exposed: Yes, Bone exposed: Yes, Undermining: No) Neurological: Yes: Lethargy (responsive to verbal stimuli) ...Motor Strength: LLE, RLE (generalized weakness) Labs: INR, PTT INR 1.14 (0.83-1.09) H 05/28/20 11:20 Problem List - Problems (1) COVID-19 ruled out Assessment/Plan: PCR negative Code(s): Z03.818 - ENCNTR FOR OBS FOR SUSP EXPSR TO OTH BIOLG AGENTS RULED OUT (2) Dementia Assessment/Plan: supportive care Code(s): F03.90 - UNSPECIFIED DEMENTIA WITHOUT BEHAVIORAL DISTURBANCE (3) Depression Assessment/Plan: supportive care Code(s): F32.9 - MAJOR DEPRESSIVE DISORDER, SINGLE EPISODE, UNSPECIFIED (4) Hypertension Assessment/Plan: normotensive c/w norvas Code(s): I10 - ESSENTIAL (PRIMARY) HYPERTENSION (5) Poor appetite Assessment/Plan: s/p PEG can start feeds today c/w prosource TID, supplements-ensure pudding pleasure feeds -dysphagia nector thick Code(s): R63.0 - ANOREXIA (6) Prophylactic measure Assessment/Plan: FEN Fluids: improved PO intake Electrolytes: monitor & replete as need Nut:dys diet DVT no AC Dispo Maintain as inpatient full code discharge planning-LTACH Code(s): Z29.9 - ENCOUNTER FOR PROPHYLACTIC MEASURES, UNSPECIFIED (7) Status post spinal surgery Assessment/Plan: Wound culture from 04/23/2020 grew pseudomonas resistant to zosyn and VRE sentivie to daptomycin. Continue daptomycin and meropenem. ID following. will need PICC on dc for watermaster abx monitor WBC, fevers, vitals Code(s): Z98.890 - OTHER SPECIFIED POSTPROCEDURAL STATES (8) Malnutrition Assessment/Plan: c/w nutritional supplements s/p PEG TF PIVOT to start today Code(s): E46 - UNSPECIFIED PROTEIN-CALORIE MALNUTRITION (9) Severe sepsis Assessment/Plan: spinal stenosis s/p removal of L3-L5 hardware, including L4-L5 intervertebral cage, L3-S1 laminectomy, L5-S1 PLIF, L3-S1 posterior instrumented spinal fusion. s/p multiple washouts. c/w daptomycin and meropenem per ID-will need 4 more weeks of IV abx. Stop date 06/14 surgery following pain control monitor vitals, labs, mental status Code(s): A41.9 - SEPSIS, UNSPECIFIED ORGANISM; R65.20 - SEVERE SEPSIS WITHOUT SEPTIC SHOCK (10) Toxic metabolic encephalopathy Assessment/Plan: multifactorial mental status has improved and patient able to answer questions appropriately AMS likely secondary to sepsis Code(s): G92 - TOXIC ENCEPHALOPATHY (11) Leukocytosis Assessment/Plan: afebrile wbc 15.6 c/t trend c/w abx Code(s): D72.829 - ELEVATED WHITE BLOOD CELL COUNT, UNSPECIFIED (12) Thrombocytosis Assessment/Plan: plt 464 most likely r/t sepsis c/t trend Code(s): D47.3 - ESSENTIAL (HEMORRHAGIC) THROMBOCYTHEMIA (13) CVA (cerebral vascular accident) Assessment/Plan: infarct seen on brain mri 05/16/2020. on asa, statin therapy (statin being held since it interferes with daptomycin, asa to restart) PT following speech and swallow following aspiration precautions neurology following Code(s): I63.9 - CEREBRAL INFARCTION, UNSPECIFIED (14) Severe malnutrition Assessment/Plan: s/p peg c/w supplements TF to start Code(s): E43 - UNSPECIFIED SEVERE PROTEIN-CALORIE MALNUTRITION (15) Unstageable pressure ulcer of right heel Assessment/Plan: unstageable right heel pressure ulcer, purple in color, round. patient denies pain. plan to continue to: - elevate heels at all times. - c/w santyl daily - vascular evaluated, notes reviewed - monitor wound daily Code(s): L89.610 - PRESSURE ULCER OF RIGHT HEEL, UNSTAGEABLE Visit type - Emergency Visit Emergency Visit: Yes ED Registration Date: 04/09/20 Care time: The patient presented to the Emergency Department on the above date and was hospitalized for further evaluation of their emergent condition. - New Patient This patient is new to me today: No - Critical Care Critical Care patient: No - Discharge Referral Referred to [facility] Med P.C.: No - Medication Review Med list reviewed for High Risk Meds patients 65 and older: Yes
[2020-05-30 08:35] LABS: BILIRUBIN,TOTAL 0.5 mg/dL (0.2-1); BLOOD UREA NITROGEN 17.1 mg/dL (7-18); CALCIUM 9.4 mg/dL (8.5-10.1); CREATININE 0.5 mg/dL (0.55-1.3); POTASSIUM 3.9 mmol/L (3.5-5.1); TOT PROT 6.8 g/dl (6.4-8.2)
[2020-05-30] MEDS ORDERED: PT OWN MED DRAWER 7, Y5N ONE ×3 (09:35→17:19)
[2020-05-30] MEDS: DOCUSATE NA 100 MG/10 ML UNIT-DOSE CUPS PO SCH ×2 (09:41→22:07)
[2020-05-30] MEDS: amLODIPine BESYLATE 10 MG TABLET (FP) PO SCH (09:42)
[2020-05-30] MEDS: metoPROLOL SUCCINATE 25 MG TAB.SR.24H (FP) PO SCH (09:42)
[2020-05-30] MEDS: ASCORBIC ACID 500 MG TABLET (FP) PO SCH ×2 (09:42→22:06)
[2020-05-30] MEDS: oxyCODONE HCL 5 MG TABLET PO PRN (09:55)
[2020-05-30] MEDS: COLLAGENASE CLOSTRIDIUM HIST. 30 GRAMS TUBE TP SCH (10:36)
--- NOTE | 2020-05-30 10:40 | PN ---
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, Physician History of Present Illness: no new issues wbc has been fluctuation still on the higher side - Current Medication List Current Medications: Active Medications Acetaminophen (Tylenol -) 650 mg PO Q6H PRN PRN Reason: Fever Last Admin: 05/28/20 09:00 Dose: 650 mg Documented by: Amino Acids (Prosource No Carb Liquid Pkt) 30 ml PO TIDAC [facility] Last Admin: 05/30/20 06:11 Dose: 30 ml Documented by: Amlodipine Besylate (Norvasc -) 10 mg PO DAILY [facility] Last Admin: 05/30/20 09:42 Dose: 10 mg Documented by: Ascorbic Acid (Vitamin C -) 500 mg PO BID [facility] Last Admin: 05/30/20 09:42 Dose: 500 mg Documented by: Atorvastatin Calcium (Lipitor -) 20 mg PO HS [facility] Citalopram Hydrobromide (Celexa -) 20 mg PO HS [facility] Last Admin: 05/29/20 22:32 Dose: 20 mg Documented by: Collagenase (Santyl -) 1 applic TP DAILY [facility]; Protocol Last Admin: 05/30/20 10:36 Dose: 1 applic Documented by: Diphenhydramine HCl (Benadryl -) 25 mg PO ONCE PRN PRN Reason: itching Last Admin: 05/28/20 09:04 Dose: 25 mg Documented by: Diphenhydramine HCl (Benadryl -) 25 mg PO Q6H PRN PRN Reason: FOR ITCHING Last Admin: 05/28/20 16:55 Dose: 25 mg Documented by: Docusate Sodium (Colace Liquid -) 100 mg PO BID [facility] Last Admin: 05/30/20 09:41 Dose: 100 mg Documented by: Daptomycin 500 mg/ Sodium (Chloride) 50 mls @ 50 mls/hr IVPB Q24H [facility]; Protocol Last Admin: 05/29/20 17:28 Dose: 50 mls/hr Documented by: Meropenem 1 gm/ Dextrose 100 mls @ 200 mls/hr IVPB Q8H-IV [facility] Last Admin: 05/30/20 09:41 Dose: 200 mls/hr Documented by: Dextrose/Sodium Chloride (D5-1/2ns -) 1,000 mls @ 30 mls/hr IV ASDIR [facility] Last Admin: 05/30/20 05:30 Dose: 30 mls/hr Documented by: Metoprolol Succinate (Toprol Xl -) 12.5 mg PO DAILY [facility] Last Admin: 05/30/20 09:42 Dose: 12.5 mg Documented by: Mirtazapine (Remeron -) 7.5 mg PO HS [facility] Last Admin: 05/29/20 22:32 Dose: 7.5 mg Documented by: Multivitamins/Minerals (Certavite-Antioxidant Liquid) 15 ml PO DAILY [facility] Last Admin: 05/29/20 10:47 Dose: Not Given Documented by: Nystatin (Nystatin Oral Suspension -) 500,000 units PO Q6HPO [facility] Last Admin: 05/30/20 06:11 Dose: 500,000 units Documented by: Ondansetron HCl (Zofran Injection) 4 mg IVPUSH Q6H PRN PRN Reason: NAUSEA AND/OR VOMITING Oxycodone HCl (Roxicodone -) 5 mg PO Q6H PRN PRN Reason: PAIN LEVEL 7 - 10 Last Admin: 05/30/20 09:55 Dose: 5 mg Documented by: Pantoprazole Sodium (Protonix Packets For Oral Suspension -) 40 mg PO ACBK [facility] Last Admin: 05/30/20 06:09 Dose: 40 mg Documented by: Polyethylene Glycol (Miralax (For Daily Use) -) 17 gm PO BID PRN PRN Reason: CONSTIPATION Senna/Docusate Sodium (Pericolace -) 1 tablet PO BID PRN PRN Reason: CONSTIPATION - Objective Vital Signs: Vital Signs Temperature 98.4 F 05/30/20 06:00 Pulse Rate 77 05/30/20 06:00 Respiratory Rate 19 05/30/20 06:00 Blood Pressure 134/69 05/30/20 06:00 O2 Sat by Pulse Oximetry (%) 98 05/30/20 06:00 Constitutional: Yes: Other Cardiovascular: Yes: S1, S2 Respiratory: Yes: Regular, CTA Bilaterally Gastrointestinal: Yes: Normal Bowel Sounds, Soft Musculoskeletal: Yes: Other Extremities: Yes: WNL Wound/Incision: Yes: Other (wound vac in place) Neurological: Yes: Alert Psychiatric: Yes: Alert Labs: CBC, BMP 05/30/20 06:40 05/30/20 06:40 INR, PTT INR 1.14 (0.83-1.09) H 05/28/20 11:20 Assessment/Plan Problem List - Problems (1) Severe sepsis Code(s): A41.9 - SEPSIS, UNSPECIFIED ORGANISM; R65.20 - SEVERE SEPSIS WITHOUT SEPTIC SHOCK (2) Bacteremia due to Gram-negative bacteria Code(s): R78.81 - BACTEREMIA (3) Status post spinal surgery Code(s): Z98.890 - OTHER SPECIFIED POSTPROCEDURAL STATES (4) Toxic metabolic encephalopathy Code(s): G92 - TOXIC ENCEPHALOPATHY (5) Urinary tract infection Code(s): N39.0 - URINARY TRACT INFECTION, SITE NOT SPECIFIED Qualifiers: Urinary tract infection type: site unspecified Hematuria presence: without hematuria Qualified Code(s): N39.0 - Urinary tract infection, site not specified Assessment/Plan 79 y.o. female with PMH of dementia, HTN, depression, lumbar stenosis s/p laminectomy, neuropathy who underwent removal of L3-L5 hardware, L3-S1 laminectomies, L5-S1 PLIF/L3-S1 PSIF on 04/09/20 and noted to develop fever up to 101.8F and increase in wbc to 16.8K along with lethargy and mild hypotension Severe Sepsis Gram negative/E. coli Bacteremia Pseudomonas UTI s/p lumbar wound I+D, s/p washout/wound vac placement plan ct current mgmt abx wound care complete the course rest as per the team as per neurology
[2020-05-30] MEDS: MULTIVIT-MINERALS ORAL LIQUID PO SCH (11:47)
--- NOTE | 2020-05-30 12:54 | PN ---
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 (short form) - Note 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: cc: s/p spine surgery s: no chest pain, dyspnea, palps Current Medications Generic Name Dose Route Start Last Admin Trade Name Freq PRN Reason Stop Dose Admin Acetaminophen 650 mg 05/16/20 20:58 05/28/20 09:00 Tylenol - PO 650 mg Q6H PRN Administration Fever Amino Acids 30 ml 05/20/20 01:07 05/30/20 11:47 Prosource No Carb Liquid Pkt PO 30 ml TIDAC [facility] Administration Amlodipine Besylate 10 mg 05/21/20 10:00 05/30/20 09:42 Norvasc - PO 10 mg DAILY [facility] Administration Ascorbic Acid 500 mg 05/16/20 22:00 05/30/20 09:42 Vitamin C - PO 500 mg BID [facility] Administration Atorvastatin Calcium 20 mg 05/16/20 22:00 Lipitor - PO HS [facility] Citalopram Hydrobromide 20 mg 05/16/20 22:00 05/29/20 22:32 Celexa - PO 20 mg HS [facility] Administration Collagenase 1 applic 05/17/20 10:00 05/30/20 10:36 Santyl - TP 1 applic DAILY [facility] Administration Protocol Diphenhydramine HCl 25 mg 05/27/20 16:58 05/28/20 09:04 Benadryl - PO 25 mg ONCE PRN Administration itching Diphenhydramine HCl 25 mg 05/28/20 08:52 05/28/20 16:55 Benadryl - PO 25 mg Q6H PRN Administration FOR ITCHING Docusate Sodium 100 mg 05/18/20 11:15 05/30/20 09:41 Colace Liquid - PO 100 mg BID [facility] Administration Daptomycin 500 mg/ Sodium 50 mls @ 50 mls/hr 05/17/20 16:00 05/29/20 17:28 Chloride IVPB 50 mls/hr Q24H [facility] Administration Protocol Meropenem 1 gm/ Dextrose 100 mls @ 200 mls/hr 05/17/20 02:00 05/30/20 09:41 IVPB 200 mls/hr Q8H-IV [facility] Administration Dextrose/Sodium Chloride 1,000 mls @ 30 mls/hr 05/16/20 23:15 05/30/20 05:30 D5-1/2ns - IV 30 mls/hr ASDIR [facility] Administration Metoprolol Succinate 12.5 mg 05/24/20 10:00 05/30/20 09:42 Toprol Xl - PO 12.5 mg DAILY [facility] Administration Mirtazapine 7.5 mg 05/16/20 22:00 05/29/20 22:32 Remeron - PO 7.5 mg HS [facility] Administration Multivitamins/Minerals 15 ml 05/17/20 10:00 05/30/20 11:47 Certavite-Antioxidant Liquid PO 15 ml DAILY [facility] Administration Nystatin 500,000 units 05/18/20 18:00 05/30/20 11:47 Nystatin Oral Suspension - PO 500,000 units Q6HPO [facility] Administration Ondansetron HCl 4 mg 05/16/20 20:58 Zofran Injection IVPUSH Q6H PRN NAUSEA AND/OR VOMITING Oxycodone HCl 5 mg 05/23/20 10:50 05/30/20 09:55 Roxicodone - PO 5 mg Q6H PRN Administration PAIN LEVEL 7 - 10 Pantoprazole Sodium 40 mg 05/17/20 07:00 05/30/20 06:09 Protonix Packets For Oral Suspension - PO 40 mg ACBK [facility] Administration Polyethylene Glycol 17 gm 05/16/20 20:58 Miralax (For Daily Use) - PO BID PRN CONSTIPATION Senna/Docusate Sodium 1 tablet 05/16/20 20:58 Pericolace - PO BID PRN CONSTIPATION Vital Signs Period Temp Pulse Resp BP Sys/Lepe Pulse Ox Last 24 Hr 98.1 F-98.6 F 71-88 18-19 134-146/67-74 94-98 Constitutional: Yes: No Distress Cardiovascular: Yes: Regular Rate and Rhythm Respiratory: Yes: CTA Bilaterally Gastrointestinal: Yes: Soft (nt) Edema: No Neurological: Yes: Other (left sided weakness) no jaundice diaphoresis awake alert DATA: echo 05/2020: nl lv/rv, mild as carotid: mild dz, no sig stenosis tele: sinus, brief PSVT a/p: 80 f hx htn, hld, here for elective spine surgery. htn: -cont ccb, bb hld: -statin held - interacts with daptomycin cva: -cont bp control - statin held, interacts with daptomycin - aspirin held for PEG tube placement - planned for today -echo and carotids unremarkable -neuro following svt: -tele shows brief episodes of PAT. Pt asymptomatic and echo unremarkable so this is benign finding. Cont bb
[2020-05-30] MEDS: DAPTOMYCIN 500 MG in SODIUM CHLORIDE 50 ML IVPB SCH (17:20)
[2020-05-30] MEDS: MIRTAZAPINE 15 MG TABLET (FP) PO SCH (22:06)
[2020-05-30] MEDS: ACETAMINOPHEN 325 MG TABLET (FP) PO PRN (22:07)
[2020-05-30] MEDS: CITALOPRAM HYDROBROMIDE 20 MG TABLET PO SCH (22:07)
[2020-05-31] MEDS: NYSTATIN 500,000 UNITS/5 ML SUSPENSION PO SCH ×5 (00:27→23:50)
[2020-05-31] MEDS ORDERED: DEXTROSE 5%-WATER 100 ML IVPB ONE ×3 (00:42→17:31)
[2020-05-31] MEDS ORDERED: MEROPENEM 1 GM VIAL (RESTRICTED TO ID) IVPB ONE ×3 (00:42→17:31)
[2020-05-31] MEDS: MEROPENEM 1 GM in DEXTROSE 5%-WATER 100 ML IVPB SCH ×3 (01:06→17:33)
[2020-05-31] MEDS: PANTOPRAZOLE SOD 40 MG SUSPENSION PACKET PO SCH (06:43)
[2020-05-31] MEDS: AMINO ACIDS/PROTEIN HYDROLYS 30 ML LIQUID.PKT PO SCH ×3 (06:45→16:14)
--- NOTE | 2020-05-31 07:29 | PN ---
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, Physician Chief Complaint: Seen and examined in bed. States she is feeling well with minimal pain. Tolerating TF at goal now. Remains on IV abx-detention. Awaiting final surgical plan for disposition of patient History of Present Illness: Patient is a 80 year old female with a history of hypertension, dementia, depression, spinal stenosis, neuropathy she is s/p removal of L3-L5 hardware, including L4-L5 intervertebral cage, L3-S1 laminectomy, L5-S1 PLIF, L3-S1 posterior instrumented spinal fusion. She is s/p multiple washouts for infected hardware. hospitalization complicated when patient was noted to have left upper ext weakness and brain mri showed small post periventricular infarct. She is being followed by neurology and cardiology. - Current Medication List Current Medications: Active Medications Acetaminophen (Tylenol -) 650 mg PO Q6H PRN PRN Reason: Fever Last Admin: 05/30/20 22:07 Dose: 650 mg Documented by: Amino Acids (Prosource No Carb Liquid Pkt) 30 ml PO TIDAC [facility] Last Admin: 05/31/20 06:45 Dose: 30 ml Documented by: Amlodipine Besylate (Norvasc -) 10 mg PO DAILY [facility] Last Admin: 05/30/20 09:42 Dose: 10 mg Documented by: Ascorbic Acid (Vitamin C -) 500 mg PO BID [facility] Last Admin: 05/30/20 22:06 Dose: 500 mg Documented by: Atorvastatin Calcium (Lipitor -) 20 mg PO HS JAYE Citalopram Hydrobromide (Celexa -) 20 mg PO HS [facility] Last Admin: 05/30/20 22:07 Dose: 20 mg Documented by: Collagenase (Santyl -) 1 applic TP DAILY [facility]; Protocol Last Admin: 05/30/20 10:36 Dose: 1 applic Documented by: Diphenhydramine HCl (Benadryl -) 25 mg PO ONCE PRN PRN Reason: itching Last Admin: 05/28/20 09:04 Dose: 25 mg Documented by: Diphenhydramine HCl (Benadryl -) 25 mg PO Q6H PRN PRN Reason: FOR ITCHING Last Admin: 05/28/20 16:55 Dose: 25 mg Documented by: Docusate Sodium (Colace Liquid -) 100 mg PO BID [facility] Last Admin: 05/30/20 22:07 Dose: 100 mg Documented by: Daptomycin 500 mg/ Sodium (Chloride) 50 mls @ 50 mls/hr IVPB Q24H [facility]; Protocol Stop: 06/14/20 16:00 Last Admin: 05/30/20 17:20 Dose: 50 mls/hr Documented by: Meropenem 1 gm/ Dextrose 100 mls @ 200 mls/hr IVPB Q8H-IV [facility] Stop: 06/14/20 02:00 Last Admin: 05/31/20 01:06 Dose: 200 mls/hr Documented by: Metoprolol Succinate (Toprol Xl -) 12.5 mg PO DAILY [facility] Last Admin: 05/30/20 09:42 Dose: 12.5 mg Documented by: Mirtazapine (Remeron -) 7.5 mg PO HS [facility] Last Admin: 05/30/20 22:06 Dose: 7.5 mg Documented by: Multivitamins/Minerals (Certavite-Antioxidant Liquid) 15 ml PO DAILY [facility] Last Admin: 05/30/20 11:47 Dose: 15 ml Documented by: Nystatin (Nystatin Oral Suspension -) 500,000 units PO Q6HPO [facility] Last Admin: 05/31/20 06:43 Dose: 500,000 units Documented by: Ondansetron HCl (Zofran Injection) 4 mg IVPUSH Q6H PRN PRN Reason: NAUSEA AND/OR VOMITING Pantoprazole Sodium (Protonix Packets For Oral Suspension -) 40 mg PO ACBK [facility] Last Admin: 05/31/20 06:43 Dose: 40 mg Documented by: Polyethylene Glycol (Miralax (For Daily Use) -) 17 gm PO BID PRN PRN Reason: CONSTIPATION Senna/Docusate Sodium (Pericolace -) 1 tablet PO BID PRN PRN Reason: CONSTIPATION - Objective Vital Signs: Vital Signs Temperature 98.4 F 05/31/20 06:00 Pulse Rate 81 05/31/20 06:00 Respiratory Rate 20 05/31/20 06:00 Blood Pressure 135/71 05/31/20 06:00 O2 Sat by Pulse Oximetry (%) 98 05/31/20 06:00 Additional Findings/Remarks: Constitutional: Yes: No Distress, Calm, Thin Eyes: Yes: WNL, Conjunctiva Clear HENT: Yes: Other (NGT to right nares) Neck: Yes: WNL, Supple, Trachea Midline Cardiovascular: Yes: WNL, Regular Rate and Rhythm Respiratory: Yes: WNL, Regular, CTA Bilaterally Gastrointestinal: Yes: Other (PEG with TF)) ...Rectal Exam: Yes: Deferred Genitourinary: Yes: WNL, Incontinence Breast(s): Yes: WNL Musculoskeletal: Yes: WNL Extremities: Yes: WNL Edema: No Peripheral Pulses WNL: Yes Peripheral Pulses: Left Radial: 2+, Right Radial: 2+, Left Doralis Pedis: 2+, Right Dorsalis Pedis: 2+, Left Femoral: 2+, Right Femoral: 2+ Integumentary: Yes: Other (right buttocks skin shearing, does not appear to be a pressure sore/right heel unsteageable.) Wound/Incision: Yes: Other (Wound location: Other (Infected lumbar wound; opened surgically) Length (cm): 19 Width (cm): 5 Depth (cm): 5 Wound area (sq cm): 95.00 Wound Description: Muscle exposed: Yes, Tendon exposed: Yes, Bone exposed: Yes, Undermining: No) Neurological: Yes: Lethargy (responsive to verbal stimuli) ...Motor Strength: LLE, RLE (generalized weakness) Labs: INR, PTT INR 1.14 (0.83-1.09) H 05/28/20 11:20 Problem List - Problems (1) COVID-19 ruled out Assessment/Plan: PCR negative Code(s): Z03.818 - ENCNTR FOR OBS FOR SUSP EXPSR TO OTH BIOLG AGENTS RULED OUT (2) Dementia Assessment/Plan: supportive care Code(s): F03.90 - UNSPECIFIED DEMENTIA WITHOUT BEHAVIORAL DISTURBANCE (3) Depression Assessment/Plan: supportive care Code(s): F32.9 - MAJOR DEPRESSIVE DISORDER, SINGLE EPISODE, UNSPECIFIED (4) Hypertension Assessment/Plan: normotensive c/w norvasc Code(s): I10 - ESSENTIAL (PRIMARY) HYPERTENSION (5) Poor appetite Assessment/Plan: s/p PEG-TF at goal tolerating well c/w prosource TID, supplements-ensure pudding pleasure feeds -dysphagia nector thick Code(s): R63.0 - ANOREXIA (6) Prophylactic measure Assessment/Plan: FEN Fluids: improved PO intake Electrolytes: monitor & replete as need Nut:dys diet DVT can restart asa Dispo Maintain as inpatient full code discharge planning-LTACH Code(s): Z29.9 - ENCOUNTER FOR PROPHYLACTIC MEASURES, UNSPECIFIED (7) Status post spinal surgery Assessment/Plan: Wound culture from 04/23/2020 grew pseudomonas resistant to zosyn and VRE sensitive to daptomycin. Continue daptomycin and meropenem. ID following. 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 4 weeks @ 06/14 VAC dressing changed at bedside on 05/29 monitor WBC, fevers, vitals Code(s): Z98.890 - OTHER SPECIFIED POSTPROCEDURAL STATES (8) Malnutrition Assessment/Plan: c/w nutritional supplements s/p PEG tolerating TF PIVOT Code(s): E46 - UNSPECIFIED PROTEIN-CALORIE MALNUTRITION (9) Severe sepsis Assessment/Plan: spinal stenosis s/p removal of L3-L5 hardware, including L4-L5 intervertebral cage, L3-S1 laminectomy, L5-S1 PLIF, L3-S1 posterior instrumented spinal fusion. s/p multiple washouts. c/w daptomycin and meropenem per ID-will need 4 more weeks of IV abx. Stop date 06/14 surgery following pain control monitor vitals, labs, mental status Code(s): A41.9 - SEPSIS, UNSPECIFIED ORGANISM; R65.20 - SEVERE SEPSIS WITHOUT SEPTIC SHOCK (10) Toxic metabolic encephalopathy Assessment/Plan: multifactorial mental status has improved and patient able to answer questions appropriately AMS likely secondary to sepsis Code(s): G92 - TOXIC ENCEPHALOPATHY (11) Leukocytosis Assessment/Plan: afebrile wbc 19 c/t trend c/w abx Code(s): D72.829 - ELEVATED WHITE BLOOD CELL COUNT, UNSPECIFIED (12) Thrombocytosis Assessment/Plan: plt 498 most likely r/t sepsis and chronic infection c/t trend Code(s): D47.3 - ESSENTIAL (HEMORRHAGIC) THROMBOCYTHEMIA (13) CVA (cerebral vascular accident) Assessment/Plan: infarct seen on brain mri 05/16/2020. retsart asa, statin therapy when off dapto (statin being held since it interferes with daptomycin, asa to restart) PT following speech and swallow following aspiration precautions neurology following Code(s): I63.9 - CEREBRAL INFARCTION, UNSPECIFIED (14) Severe malnutrition Assessment/Plan: s/p peg c/w supplements tolerating TF Code(s): E43 - UNSPECIFIED SEVERE PROTEIN-CALORIE MALNUTRITION (15) Unstageable pressure ulcer of right heel Assessment/Plan: unstageable right heel pressure ulcer, purple in color, round. patient denies pain. plan to continue to: - elevate heels at all times. - c/w santyl daily - vascular evaluated, notes reviewed - monitor wound daily Code(s): L89.610 - PRESSURE ULCER OF RIGHT HEEL, UNSTAGEABLE Visit type - Emergency Visit Emergency Visit: Yes ED Registration Date: 04/09/20 Care time: The patient presented to the Emergency Department on the above date and was hospitalized for further evaluation of their emergent condition. - New Patient This patient is new to me today: No - Critical Care Critical Care patient: No - Discharge Referral Referred to [facility] Med [facility] No - Medication Review Med list reviewed for High Risk Meds patients 65 and older: Yes
[2020-05-31 07:32] LABS: BASO % 0.1 % (0-2.0); EOS % 12.1 % (0-4.5); HEMOGLOBIN 9.7 GM/dL (10.7-15.3); LYMPH % 4.8 % (8-40); MCH 26.4 pg (25.7-33.7); MCHC 32.3 g/dl (32.0-36.0); MEAN CELL VOLUME 81.8 fl (80-96); MEAN PLT VOLUME 8.3 fl (7.5-11.1); MONO % 3.2 % (3.8-10.2); NEUT % 79.8 % (42.8-82.8); PLATELET COUNT 498 K/MM3 (134-434); RBC 3.67 M/mm3 (3.60-5.2); RDW 16.8 % (11.6-15.6); WHITE BLOOD COUNT 19.9 K/mm3 (4.0-10.0)
[2020-05-31 08:15] LABS: BILIRUBIN,TOTAL 0.2 mg/dL (0.2-1); BLOOD UREA NITROGEN 25.6 mg/dL (7-18); CALCIUM 8.9 mg/dL (8.5-10.1); CREATININE 0.6 mg/dL (0.55-1.3); MAGNESIUM 1.9 mg/dL (1.8-2.4); POTASSIUM 4.1 mmol/L (3.5-5.1); TOT PROT 6.6 g/dl (6.4-8.2)
[2020-05-31] MEDS ORDERED: PT OWN MED DRAWER 7, Y5N ONE (10:12)
[2020-05-31] MEDS: ASCORBIC ACID 500 MG TABLET (FP) PO SCH ×2 (10:15→22:23)
[2020-05-31] MEDS: amLODIPine BESYLATE 10 MG TABLET (FP) PO SCH (10:16)
[2020-05-31] MEDS: metoPROLOL SUCCINATE 25 MG TAB.SR.24H (FP) PO SCH (10:16)
[2020-05-31] MEDS: DOCUSATE NA 100 MG/10 ML UNIT-DOSE CUPS PO SCH ×2 (10:27→22:24)
[2020-05-31] MEDS: MULTIVIT-MINERALS ORAL LIQUID PO SCH (10:28)
[2020-05-31] MEDS: COLLAGENASE CLOSTRIDIUM HIST. 30 GRAMS TUBE TP SCH (11:21)
--- NOTE | 2020-05-31 11:37 | PN ---
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 (short form) - Note 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: Chief Complaint: no CP/SOB/palps TELE: sr, brief pat Current Medications Generic Name Dose Route Start Last Admin Trade Name Freq PRN Reason Stop Dose Admin Acetaminophen 650 mg 05/16/20 20:58 05/30/20 22:07 Tylenol - PO 650 mg Q6H PRN Administration Fever Amino Acids 30 ml 05/20/20 01:07 05/31/20 10:27 Prosource No Carb Liquid Pkt PO 30 ml TIDAC JAYE Administration Amlodipine Besylate 10 mg 05/21/20 10:00 05/31/20 10:16 Norvasc - PO 10 mg DAILY JAYE Administration Ascorbic Acid 500 mg 05/16/20 22:00 05/31/20 10:15 Vitamin C - PO 500 mg BID JAYE Administration Atorvastatin Calcium 20 mg 05/16/20 22:00 Lipitor - PO HS JAYE Citalopram Hydrobromide 20 mg 05/16/20 22:00 05/30/20 22:07 Celexa - PO 20 mg HS JAYE Administration Collagenase 1 applic 05/17/20 10:00 05/31/20 11:21 Santyl - TP 1 applic DAILY JAYE Administration Protocol Diphenhydramine HCl 25 mg 05/27/20 16:58 05/28/20 09:04 Benadryl - PO 25 mg ONCE PRN Administration itching Diphenhydramine HCl 25 mg 05/28/20 08:52 05/28/20 16:55 Benadryl - PO 25 mg Q6H PRN Administration FOR ITCHING Docusate Sodium 100 mg 05/18/20 11:15 05/31/20 10:27 Colace Liquid - PO 100 mg BID JAYE Administration Daptomycin 500 mg/ Sodium 50 mls @ 50 mls/hr 05/17/20 16:00 05/30/20 17:20 Chloride IVPB 06/14/20 16:00 50 mls/hr Q24H JAYE Administration Protocol Meropenem 1 gm/ Dextrose 100 mls @ 200 mls/hr 05/17/20 02:00 05/31/20 10:27 IVPB 06/14/20 02:00 200 mls/hr Q8H-IV JAYE Administration Metoprolol Succinate 12.5 mg 05/24/20 10:00 05/31/20 10:16 Toprol Xl - PO 12.5 mg DAILY JAYE Administration Mirtazapine 7.5 mg 05/16/20 22:00 05/30/20 22:06 Remeron - PO 7.5 mg HS JAYE Administration Multivitamins/Minerals 15 ml 05/17/20 10:00 05/31/20 10:28 Certavite-Antioxidant Liquid PO 15 ml DAILY JAYE Administration Nystatin 500,000 units 05/18/20 18:00 05/31/20 06:43 Nystatin Oral Suspension - PO 500,000 units Q6HPO JAYE Administration Ondansetron HCl 4 mg 05/16/20 20:58 Zofran Injection IVPUSH Q6H PRN NAUSEA AND/OR VOMITING Pantoprazole Sodium 40 mg 05/17/20 07:00 05/31/20 06:43 Protonix Packets For Oral Suspension - PO 40 mg ACBK JAYE Administration Polyethylene Glycol 17 gm 05/16/20 20:58 Miralax (For Daily Use) - PO BID PRN CONSTIPATION Senna/Docusate Sodium 1 tablet 05/16/20 20:58 Pericolace - PO BID PRN CONSTIPATION Vital Signs Period Temp Pulse Resp BP Sys/Lepe Pulse Ox Last 24 Hr 97.7 F-98.4 F 78-89 18-20 121-155/41-87 96-100 Constitutional: Yes: No Distress Cardiovascular: Yes: Regular Rate and Rhythm Respiratory: Yes: CTA Bilaterally Gastrointestinal: Yes: Soft (nt) Edema: No Neurological: Yes: Other (left sided weakness) no jaundice diaphoresis awake alert Labs: CBC, BMP 05/31/20 06:04 05/31/20 06:04 - ....Imaging EKG: Image Reviewed Assessment/Plan DATA: echo 05/2020: nl lv/rv, mild as carotid: mild dz, no sig stenosis a/p: 80 f hx htn, hld, here for elective spine surgery. htn: -cont ccb, bb hld: -statin held - interacts with daptomycin cva: -cont bp control - statin held, interacts with daptomycin - aspirin held for PEG tube placement -echo and carotids unremarkable -neuro following svt: -tele shows brief episodes of PAT. Pt asymptomatic and echo unremarkable so this is benign finding. Cont bb
--- NOTE | 2020-05-31 14:03 | PN ---
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, Physician History of Present Illness: no new issues wbc has been fluctuation still on the higher side - Current Medication List Current Medications: Active Medications Acetaminophen (Tylenol -) 650 mg PO Q6H PRN PRN Reason: Fever Last Admin: 05/30/20 22:07 Dose: 650 mg Documented by: Amino Acids (Prosource No Carb Liquid Pkt) 30 ml PO TIDAC [facility] Last Admin: 05/31/20 10:27 Dose: 30 ml Documented by: Amlodipine Besylate (Norvasc -) 10 mg PO DAILY [facility] Last Admin: 05/31/20 10:16 Dose: 10 mg Documented by: Ascorbic Acid (Vitamin C -) 500 mg PO BID [facility] Last Admin: 05/31/20 10:15 Dose: 500 mg Documented by: Atorvastatin Calcium (Lipitor -) 20 mg PO HS JAYE Citalopram Hydrobromide (Celexa -) 20 mg PO HS [facility] Last Admin: 05/30/20 22:07 Dose: 20 mg Documented by: Collagenase (Santyl -) 1 applic TP DAILY [facility]; Protocol Last Admin: 05/31/20 11:21 Dose: 1 applic Documented by: Diphenhydramine HCl (Benadryl -) 25 mg PO ONCE PRN PRN Reason: itching Last Admin: 05/28/20 09:04 Dose: 25 mg Documented by: Diphenhydramine HCl (Benadryl -) 25 mg PO Q6H PRN PRN Reason: FOR ITCHING Last Admin: 05/28/20 16:55 Dose: 25 mg Documented by: Docusate Sodium (Colace Liquid -) 100 mg PO BID [facility] Last Admin: 05/31/20 10:27 Dose: 100 mg Documented by: Daptomycin 500 mg/ Sodium (Chloride) 50 mls @ 50 mls/hr IVPB Q24H [facility]AYE; Protocol Stop: 06/14/20 16:00 Last Admin: 05/30/20 17:20 Dose: 50 mls/hr Documented by: Meropenem 1 gm/ Dextrose 100 mls @ 200 mls/hr IVPB Q8H-IV [facility]AYE Stop: 06/14/20 02:00 Last Admin: 05/31/20 10:27 Dose: 200 mls/hr Documented by: Metoprolol Succinate (Toprol Xl -) 12.5 mg PO DAILY [facility] Last Admin: 05/31/20 10:16 Dose: 12.5 mg Documented by: Mirtazapine (Remeron -) 7.5 mg PO HS [facility] Last Admin: 05/30/20 22:06 Dose: 7.5 mg Documented by: Multivitamins/Minerals (Certavite-Antioxidant Liquid) 15 ml PO DAILY [facility] Last Admin: 05/31/20 10:28 Dose: 15 ml Documented by: Nystatin (Nystatin Oral Suspension -) 500,000 units PO Q6HPO [facility] Last Admin: 05/31/20 12:23 Dose: 500,000 units Documented by: Ondansetron HCl (Zofran Injection) 4 mg IVPUSH Q6H PRN PRN Reason: NAUSEA AND/OR VOMITING Pantoprazole Sodium (Protonix Packets For Oral Suspension -) 40 mg PO ACBK [facility] Last Admin: 05/31/20 06:43 Dose: 40 mg Documented by: Polyethylene Glycol (Miralax (For Daily Use) -) 17 gm PO BID PRN PRN Reason: CONSTIPATION Senna/Docusate Sodium (Pericolace -) 1 tablet PO BID PRN PRN Reason: CONSTIPATION - Objective Vital Signs: Vital Signs Temperature 97.7 F 05/31/20 09:36 Pulse Rate 88 05/31/20 09:36 Respiratory Rate 18 05/31/20 09:36 Blood Pressure 146/87 05/31/20 09:36 O2 Sat by Pulse Oximetry (%) 100 05/31/20 09:36 Constitutional: Yes: No Distress, Calm Cardiovascular: Yes: S1, S2 Respiratory: Yes: Regular, CTA Bilaterally Gastrointestinal: Yes: Normal Bowel Sounds, Soft Musculoskeletal: Yes: WNL Extremities: Yes: Other Neurological: Yes: Alert Labs: CBC, BMP 05/31/20 06:04 05/31/20 06:04 INR, PTT INR 1.14 (0.83-1.09) H 05/28/20 11:20 Assessment/Plan Problem List - Problems (1) Severe sepsis Code(s): A41.9 - SEPSIS, UNSPECIFIED ORGANISM; R65.20 - SEVERE SEPSIS WITHOUT SEPTIC SHOCK (2) Bacteremia due to Gram-negative bacteria Code(s): R78.81 - BACTEREMIA (3) Status post spinal surgery Code(s): Z98.890 - OTHER SPECIFIED POSTPROCEDURAL STATES (4) Toxic metabolic encephalopathy Code(s): G92 - TOXIC ENCEPHALOPATHY (5) Urinary tract infection Code(s): N39.0 - URINARY TRACT INFECTION, SITE NOT SPECIFIED Qualifiers: Urinary tract infection type: site unspecified Hematuria presence: without hematuria Qualified Code(s): N39.0 - Urinary tract infection, site not speci fied Assessment/Plan 79 y.o. female with PMH of dementia, HTN, depression, lumbar stenosis s/p laminectomy, neuropathy who underwent removal of L3-L5 hardware, L3-S1 stover inectomies, L5-S1 PLIF/L3-S1 PSIF on 04/09/20 and noted to develop fever up to 101.8F and increase in wbc to 16.8K along with lethargy and mild hypotension Severe Sepsis Gram negative/E. coli Bacteremia Pseudomonas UTI s/p lumbar wound I+D, s/p washout/wound vac placement plan ct current mgmt abx wound care complete the course rest as per the team as per neurology
--- NOTE | 2020-05-31 14:24 | PN ---
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, CLINICAL RESOURCE DIRECTOR - Note 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: Selected Entries 05/31/20 12:34 Lunch 25% Laboratory Tests 05/30/20 05/31/20 06:40 06:04 WBC 15.7 H 19.9 H PO held by staff as pt has TF order Clarified with staff -PO order as well as TF, ideally nocturnally. F/u by RD regaRDING DIETARY ORDERS. PEG to provide supplemental nutritional support Consider Nocturnal TF with continued po intake mealtime.
[2020-05-31] MEDS: DAPTOMYCIN 500 MG in SODIUM CHLORIDE 50 ML IVPB SCH (16:14)
[2020-05-31] MEDS: CITALOPRAM HYDROBROMIDE 20 MG TABLET PO SCH (22:23)
[2020-05-31] MEDS: MIRTAZAPINE 15 MG TABLET (FP) PO SCH (22:23)
[2020-05-31] MEDS: ACETAMINOPHEN 325 MG TABLET (FP) PO PRN (22:23)
[2020-05-31] MEDS: diphenhydrAMINE HCL 25 MG CAPSULE (FP) PO PRN (22:24)
[2020-06-01] MEDS ORDERED: MEROPENEM 1 GM VIAL (RESTRICTED TO ID) IVPB ONE ×2 (01:26→09:22)
[2020-06-01] MEDS ORDERED: DEXTROSE 5%-WATER 100 ML IVPB ONE ×2 (01:26→09:22)
[2020-06-01] MEDS: MEROPENEM 1 GM in DEXTROSE 5%-WATER 100 ML IVPB SCH ×2 (01:28→09:32)
[2020-06-01] MEDS: NYSTATIN 500,000 UNITS/5 ML SUSPENSION PO SCH ×4 (05:48→23:38)
--- NOTE | 2020-06-01 05:59 | PN ---
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, Physician Chief Complaint: sleeping comfortably s/p PEG no cp/sob TELE: NSR, occasional self limited bursts PAT - Current Medication List Current Medications: Active Medications Acetaminophen (Tylenol -) 650 mg PO Q6H PRN PRN Reason: Fever Last Admin: 05/31/20 22:23 Dose: 650 mg Documented by: Amino Acids (Prosource No Carb Liquid Pkt) 30 ml PO TIDAC [facility] Last Admin: 05/31/20 16:14 Dose: 30 ml Documented by: Amlodipine Besylate (Norvasc -) 10 mg PO DAILY [facility] Last Admin: 05/31/20 10:16 Dose: 10 mg Documented by: Ascorbic Acid (Vitamin C -) 500 mg PO BID [facility] Last Admin: 05/31/20 22:23 Dose: 500 mg Documented by: Citalopram Hydrobromide (Celexa -) 20 mg PO HS [facility] Last Admin: 05/31/20 22:23 Dose: 20 mg Documented by: Collagenase (Santyl -) 1 applic TP DAILY [facility]; Protocol Last Admin: 05/31/20 11:21 Dose: 1 applic Documented by: Diphenhydramine HCl (Benadryl -) 25 mg PO ONCE PRN PRN Reason: itching Last Admin: 05/28/20 09:04 Dose: 25 mg Documented by: Diphenhydramine HCl (Benadryl -) 25 mg PO Q6H PRN PRN Reason: FOR ITCHING Last Admin: 05/31/20 22:24 Dose: 25 mg Documented by: Docusate Sodium (Colace Liquid -) 100 mg PO BID [facility] Last Admin: 05/31/20 22:24 Dose: 100 mg Documented by: Daptomycin 500 mg/ Sodium (Chloride) 50 mls @ 50 mls/hr IVPB Q24H JAYE; Protocol Stop: 06/14/20 16:00 Last Admin: 05/31/20 16:14 Dose: 50 mls/hr Documented by: Meropenem 1 gm/ Dextrose 100 mls @ 200 mls/hr IVPB Q8H-IV JAYE Stop: 06/14/20 02:00 Last Admin: 06/01/20 01:28 Dose: 200 mls/hr Documented by: Metoprolol Succinate (Toprol Xl -) 12.5 mg PO DAILY [facility] Last Admin: 08/27/20 10:16 Dose: 12.5 mg Documented by: Mirtazapine (Remeron -) 7.5 mg PO HS [facility] Last Admin: 05/31/20 22:23 Dose: 7.5 mg Documented by: Multivitamins/Minerals (Certavite-Antioxidant Liquid) 15 ml PO DAILY [facility] Last Admin: 05/31/20 10:28 Dose: 15 ml Documented by: Nystatin (Nystatin Oral Suspension -) 500,000 units PO Q6HPO [facility] Last Admin: 06/01/20 05:48 Dose: 500,000 units Documented by: Ondansetron HCl (Zofran Injection) 4 mg IVPUSH Q6H PRN PRN Reason: NAUSEA AND/OR VOMITING Pantoprazole Sodium (Protonix Packets For Oral Suspension -) 40 mg PO ACBK [facility] Last Admin: 05/31/20 06:43 Dose: 40 mg Documented by: Polyethylene Glycol (Miralax (For Daily Use) -) 17 gm PO BID PRN PRN Reason: CONSTIPATION Senna/Docusate Sodium (Pericolace -) 1 tablet PO BID PRN PRN Reason: CONSTIPATION - Objective Vital Signs: Vital Signs Temperature 98.4 F 06/01/20 02:00 Pulse Rate 82 06/01/20 02:00 Respiratory Rate 18 06/01/20 02:00 Blood Pressure 136/66 06/01/20 02:00 O2 Sat by Pulse Oximetry (%) 97 05/31/20 22:00 Constitutional: Yes: No Distress Cardiovascular: Yes: Regular Rate and Rhythm Respiratory: Yes: CTA Bilaterally Gastrointestinal: Yes: Soft (no oozing from peg site) Edema: No Neurological: Yes: Alert Labs: CBC, BMP 05/31/20 06:04 05/31/20 06:04 INR, PTT INR 1.14 (0.83-1.09) H 05/28/20 11:20 Laboratory Tests 05/31/20 05/31/20 06:04 06:04 WBC 19.9 H Hgb 9.7 L Plt Count 498 H Sodium 136 Potassium 4.1 Creatinine 0.6 - ....Imaging EKG: Image Reviewed Assessment/Plan DATA: echo 05/2020: nl lv/rv, mild as carotid: mild dz, no sig stenosis a/p: 80 f hx htn, hld, here for elective spine surgery, CVA, PAT htn: -cont ccb, bb hld: -statin held - interacts with daptomycin cva: -cont bp control - statin held, interacts with daptomycin - aspirin held for PEG tube placement. Resume when feasible -echo and carotids unremarkable -neuro following svt: episodes continue -can titrate Toprol to 25mg daily
[2020-06-01] MEDS: AMINO ACIDS/PROTEIN HYDROLYS 30 ML LIQUID.PKT PO SCH ×3 (06:00→17:43)
[2020-06-01] MEDS: PANTOPRAZOLE SOD 40 MG SUSPENSION PACKET PO SCH (06:00)
--- NOTE | 2020-06-01 07:33 | PN ---
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, Physician Chief Complaint: Seen and examined in bed. More lethargic today-abusable to verbal stimuli. States she is have more pain to back today. Family meeting with Dr Cuenca and son & niece to discuss [facility] History of Present Illness: Patient is a 80 year old female with a history of hypertension, dementia, depression, spinal stenosis, neuropathy she is s/p removal of L3-L5 hardware, including L4-L5 intervertebral cage, L3-S1 laminectomy, L5-S1 PLIF, L3-S1 posterior instrumented spinal fusion. She is s/p multiple washouts for infected hardware. hospitalization complicated when patient was noted to have left upper ext weakness and brain mri showed small post periventricular infarct. She is being followed by neurology and cardiology. - Current Medication List Current Medications: Active Medications Acetaminophen (Tylenol -) 650 mg PO Q6H PRN PRN Reason: Fever Last Admin: 05/31/20 22:23 Dose: 650 mg Documented by: Amino Acids (Prosource No Carb Liquid Pkt) 30 ml PO TIDAC [facility] Last Admin: 06/01/20 06:00 Dose: 30 ml Documented by: Amlodipine Besylate (Norvasc -) 10 mg PO DAILY [facility] Last Admin: 05/31/20 10:16 Dose: 10 mg Documented by: Ascorbic Acid (Vitamin C -) 500 mg PO BID [facility] Last Admin: 05/31/20 22:23 Dose: 500 mg Documented by: Citalopram Hydrobromide (Celexa -) 20 mg PO HS [facility] Last Admin: 05/31/20 22:23 Dose: 20 mg Documented by: Collagenase (Santyl -) 1 applic TP DAILY [facility]; Protocol Last Admin: 05/31/20 11:21 Dose: 1 applic Documented by: Diphenhydramine HCl (Benadryl -) 25 mg PO ONCE PRN PRN Reason: itching Last Admin: 05/28/20 09:04 Dose: 25 mg Documented by: Diphenhydramine HCl (Benadryl -) 25 mg PO Q6H PRN PRN Reason: FOR ITCHING Last Admin: 05/31/20 22:24 Dose: 25 mg Documented by: Docusate Sodium (Colace Liquid -) 100 mg PO BID [facility] Last Admin: 05/31/20 22:24 Dose: 100 mg Documented by: Daptomycin 500 mg/ Sodium (Chloride) 50 mls @ 50 mls/hr IVPB Q24H [facility]; Protocol Stop: 06/14/20 16:00 Last Admin: 05/31/20 16:14 Dose: 50 mls/hr Documented by: Meropenem 1 gm/ Dextrose 100 mls @ 200 mls/hr IVPB Q8H-IV [facility]E Stop: 06/14/20 02:00 Last Admin: 06/01/20 01:28 Dose: 200 mls/hr Documented by: Metoprolol Succinate (Toprol Xl -) 12.5 mg PO DAILY [facility] Last Admin: 05/31/20 10:16 Dose: 12.5 mg Documented by: Mirtazapine (Remeron -) 7.5 mg PO HS [facility] Last Admin: 05/31/20 22:23 Dose: 7.5 mg Documented by: Multivitamins/Minerals (Certavite-Antioxidant Liquid) 15 ml PO DAILY [facility] Last Admin: 05/31/20 10:28 Dose: 15 ml Documented by: Nystatin (Nystatin Oral Suspension -) 500,000 units PO Q6HPO [facility] Last Admin: 06/01/20 05:48 Dose: 500,000 units Documented by: Ondansetron HCl (Zofran Injection) 4 mg IVPUSH Q6H PRN PRN Reason: NAUSEA AND/OR VOMITING Pantoprazole Sodium (Protonix Packets For Oral Suspension -) 40 mg PO ACBK [facility] Last Admin: 06/01/20 06:00 Dose: 40 mg Documented by: Polyethylene Glycol (Miralax (For Daily Use) -) 17 gm PO BID PRN PRN Reason: CONSTIPATION Senna/Docusate Sodium (Pericolace -) 1 tablet PO BID PRN PRN Reason: CONSTIPATION - Objective Vital Signs: Vital Signs Temperature 98.4 F 06/01/20 02:00 Pulse Rate 82 06/01/20 02:00 Respiratory Rate 18 06/01/20 02:00 Blood Pressure 136/66 06/01/20 02:00 O2 Sat by Pulse Oximetry (%) 97 05/31/20 22:00 Additional Findings/Remarks: Constitutional: Yes: No Distress, Calm, Thin Eyes: Yes: WNL, Conjunctiva Clear HENT: Yes: Other (NGT to right nares) Neck: Yes: WNL, Supple, Trachea Midline Cardiovascular: Yes: WNL, Regular Rate and Rhythm Respiratory: Yes: WNL, Regular, CTA Bilaterally Gastrointestinal: Yes: Other (PEG with TF)) ...Rectal Exam: Yes: Deferred Genitourinary: [place] Breast(s): Yes: WNL Musculoskeletal: Yes: WNL Extremities: Yes: WNL Edema: No Peripheral Pulses WNL: Yes Peripheral Pulses: Left Radial: 2+, Right Radial: 2+, Left Doralis Pedis: 2+, Right Dorsalis Pedis: 2+, Left Femoral: 2+, Right Femoral: 2+ Integumentary: Yes: Other (right buttocks skin shearing, does not appear to be a pressure sore/right heel unsteageable.) Wound/Incision: Yes: Other (Wound location: Other (Infected lumbar wound; opened surgically) Length (cm): 19 Width (cm): 5 Depth (cm): 5 Wound area (sq cm): 95.00 Wound Description: Muscle exposed: Yes, Tendon exposed: Yes, Bone exposed: Yes, Undermining: No) Neurological: Yes: Lethargy (responsive to verbal stimuli) ...Motor Strength: LLE, RLE (generalized weakness) Labs: CBC, BMP 05/31/20 06:04 05/31/20 06:04 INR, PTT INR 1.14 (0.83-1.09) H 05/28/20 11:20 Problem List - Problems (1) COVID-19 ruled out Assessment/Plan: PCR negative Code(s): Z03.818 - ENCNTR FOR OBS FOR SUSP EXPSR TO OTH BIOLG AGENTS RULED OUT (2) Dementia Assessment/Plan: supportive care Code(s): F03.90 - UNSPECIFIED DEMENTIA WITHOUT BEHAVIORAL DISTURBANCE (3) Depression Assessment/Plan: supportive care Code(s): F32.9 - MAJOR DEPRESSIVE DISORDER, SINGLE EPISODE, UNSPECIFIED (4) Hypertension Assessment/Plan: normotensive c/w norvasc Code(s): I10 - ESSENTIAL (PRIMARY) HYPERTENSION (5) Poor appetite Assessment/Plan: s/p PEG family meeting with son Glen Moy and niece Briana Du with Dr Cuenca to discuss GOC. Given patients poor prognosis and advanced age decision was made to proceed woth Hospice care. The Vac dressing with be discontinued also with antibiotics. We will keep patient comfortable and plan for hospice care at home c/w TF while in hospital and then c/w -dysphagia nector thick and home Code(s): R63.0 - ANOREXIA (6) Prophylactic measure Assessment/Plan: FEN Fluids: improved PO intake Electrolytes: monitor & replete as need Nut:dys diet DVT asa Dispo discharge planning-hospice care Code(s): Z29.9 - ENCOUNTER FOR PROPHYLACTIC MEASURES, UNSPECIFIED (7) Status post spinal surgery Assessment/Plan: d/c VAC and wet to dry dressing daily Hospice Care Code(s): Z98.890 - OTHER SPECIFIED POSTPROCEDURAL STATES (8) Malnutrition Assessment/Plan: c/w nutritional supplements Code(s): E46 - UNSPECIFIED PROTEIN-CALORIE MALNUTRITION (9) Severe sepsis Assessment/Plan: spinal stenosis s/p removal of L3-L5 hardware, including L4-L5 intervertebral cage, L3-S1 laminectomy, L5-S1 PLIF, L3-S1 posterior instrumented spinal fusion. s/p multiple washouts. Hospice Care-dc abx pain control Code(s): A41.9 - SEPSIS, UNSPECIFIED ORGANISM; R65.20 - SEVERE SEPSIS WITHOUT SEPTIC SHOCK (10) Toxic metabolic encephalopathy Assessment/Plan: multifactorial mental status has improved and patient able to answer questions appropriately AMS likely secondary to sepsis Code(s): G92 - TOXIC ENCEPHALOPATHY (11) Leukocytosis Assessment/Plan: afebrile no further blood draws Code(s): D72.829 - ELEVATED WHITE BLOOD CELL COUNT, UNSPECIFIED (12) Thrombocytosis Assessment/Plan: plt 498 most likely r/t sepsis and chronic infection c/t trend Code(s): D47.3 - ESSENTIAL (HEMORRHAGIC) THROMBOCYTHEMIA (13) CVA (cerebral vascular accident) Assessment/Plan: infarct seen on brain mri 05/16/2020. retsart asa, statin therapy when off dapto (statin being held since it interferes with daptomycin, asa to restart) PT following speech and swallow following aspiration precautions neurology following Code(s): I63.9 - CEREBRAL INFARCTION, UNSPECIFIED (14) Severe malnutrition Assessment/Plan: s/p peg c/w supplements pleasure feeds Code(s): E43 - UNSPECIFIED SEVERE PROTEIN-CALORIE MALNUTRITION (15) Unstageable pressure ulcer of right heel Assessment/Plan: unstageable right heel pressure ulcer, purple in color, round. patient denies pain. elevate LE heel pads bl Code(s): L89.610 - PRESSURE ULCER OF RIGHT HEEL, UNSTAGEABLE (16) Encounter for hospice care discussion Assessment/Plan: family meeting with son Glen Moy and niece Briana Du with Dr Cuenca to discuss GOC. Given patients multiple co-morbidities, advanced age, prolonged hospitalization and poor prognosis decision was made to proceed with Hospice care. The Vac dressing with be discontinued and wet to dry dressing applied. Antibiotics with be stopped. We will keep patient comfortable with narcotics and anxiolytics and plan for hospice care at home. Palliative Care team obtaining DN R/DNR. Appreciate SW and Palliative RN assistance in the care of Ms Moy Code(s): Z71.89 - OTHER SPECIFIED COUNSELING (17) Hospice care patient Code(s): Z51.5 - ENCOUNTER FOR PALLIATIVE CARE Visit type - Emergency Visit Emergency Visit: Yes ED Registration Date: 04/09/20 Care time: The patient presented to the Emergency Department on the above date and was hospitalized for further evaluation of their emergent condition. - New Patient This patient is new to me today: No - Critical Care Critical Care patient: No - Discharge Referral Referred to [facility] No - Medication Review Med list reviewed for High Risk Meds patients 65 and older: Yes
[2020-06-01] MEDS ORDERED: PT OWN MED DRAWER 7, Y5N ONE (09:23)
[2020-06-01] MEDS: metoPROLOL SUCCINATE 25 MG TAB.SR.24H (FP) PO SCH (09:30)
[2020-06-01] MEDS: DOCUSATE NA 100 MG/10 ML UNIT-DOSE CUPS PO SCH ×2 (09:30→21:48)
[2020-06-01] MEDS: amLODIPine BESYLATE 10 MG TABLET (FP) PO SCH (09:31)
[2020-06-01] MEDS: ASCORBIC ACID 500 MG TABLET (FP) PO SCH ×2 (09:31→21:48)
[2020-06-01] MEDS: MULTIVIT-MINERALS ORAL LIQUID PO SCH (09:32)
[2020-06-01] MEDS: COLLAGENASE CLOSTRIDIUM HIST. 30 GRAMS TUBE TP SCH ×2 (09:32→11:29)
--- NOTE | 2020-06-01 11:10 | PN ---
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, [employer] SAL[employer]GER - Note 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: Selected Entries 05/31/20 12:34 Lunch 25% Laboratory Tests 05/30/20 05/31/20 06:40 06:04 WBC 15.7 H 19.9 H Selected Entries 05/31/20 05/31/20 05/31/20 06:00 12:34 19:32 Breakfast 0 Lunch 25% Supper NPO 0 Temperature Pulse Rate Blood Pressure O2 Sat by Pulse Oximetry (%) 06/01/20 06/01/20 06/01/20 02:00 06:59 09:00 Breakfast Lunch Supper Temperature 98.4 F 97.8 F Pulse Rate 82 82 Blood Pressure 136/66 126/53 L O2 Sat by Pulse 96 97 Oximetry (%) 06/01/20 09:29 Breakfast Lunch Supper Temperature 98.3 F Pulse Rate 81 Blood Pressure 135/63 O2 Sat by Pulse 97 Oximetry (%) Laboratory Tests 05/29/20 05/30/20 05/31/20 09:51 06:40 06:04 WBC 15.6 H 15.7 H 19.[address] and nursing. PEG to provide supplemental nutritional support, continuous per RD, due to limited PO acceptance, pleasure feeds
--- NOTE | 2020-06-01 11:10 | PN ---
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, Physician History of Present Illness: no new issues - Current Medication List Current Medications: Active Medications Acetaminophen (Tylenol -) 650 mg PO Q6H PRN PRN Reason: Fever Last Admin: 05/31/20 22:23 Dose: 650 mg Documented by: Amino Acids (Prosource No Carb Liquid Pkt) 30 ml PO TIDAC [facility] Last Admin: 06/01/20 11:06 Dose: 30 ml Documented by: Amlodipine Besylate (Norvasc -) 10 mg PO DAILY [facility] Last Admin: 06/01/20 09:31 Dose: 10 mg Documented by: Ascorbic Acid (Vitamin C -) 500 mg PO BID [facility] Last Admin: 06/01/20 09:31 Dose: 500 mg Documented by: Citalopram Hydrobromide (Celexa -) 20 mg PO [facility] Last Admin: 05/31/20 22:23 Dose: 20 mg Documented by: Diphenhydramine HCl (Benadryl -) 25 mg PO ONCE PRN PRN Reason: itching Last Admin: 05/28/20 09:04 Dose: 25 mg Documented by: Diphenhydramine HCl (Benadryl -) 25 mg PO Q6H PRN PRN Reason: FOR ITCHING Last Admin: 05/31/20 22:24 Dose: 25 mg Documented by: Docusate Sodium (Colace Liquid -) 100 mg PO BID [facility] Last Admin: 06/01/20 09:30 Dose: 100 mg Documented by: Daptomycin 500 mg/ Sodium (Chloride) 50 mls @ 50 mls/hr IVPB Q24H [facility]; Protocol Stop: 06/14/20 16:00 Last Admin: 05/31/20 16:14 Dose: 50 mls/hr Documented by: Meropenem 1 gm/ Dextrose 100 mls @ 200 mls/hr IVPB Q8H-IV JAYE Stop: 06/14/20 02:00 Last Admin: 06/01/20 09:32 Dose: 200 mls/hr Documented by: Metoprolol Succinate (Toprol Xl -) 25 mg PO DAILY [facility] Mirtazapine (Remeron -) 7.5 mg PO [facility] Last Admin: 05/31/20 22:23 Dose: 7.5 mg Documented by: Multivitamins/Minerals (Certavite-Antioxidant Liquid) 15 ml PO DAILY [facility] Last Admin: 06/01/20 09:32 Dose: 15 ml Documented by: Nystatin (Nystatin Oral Suspension -) 500,000 units PO Q6HPO [facility] Last Admin: 06/01/20 11:06 Dose: 500,000 units Documented by: Ondansetron HCl (Zofran Injection) 4 mg IVPUSH Q6H PRN PRN Reason: NAUSEA AND/OR VOMITING Pantoprazole Sodium (Protonix Packets For Oral Suspension -) 40 mg PO ACBK [facility] Last Admin: 06/01/20 06:00 Dose: 40 mg Documented by: Polyethylene Glycol (Miralax (For Daily Use) -) 17 gm PO BID PRN PRN Reason: CONSTIPATION Senna/Docusate Sodium (Pericolace -) 1 tablet PO BID PRN PRN Reason: CONSTIPATION - Objective Vital Signs: Vital Signs Temperature 98.3 F 06/01/20 09:29 Pulse Rate 81 06/01/20 09:29 Respiratory Rate 18 06/01/20 09:29 Blood Pressure 135/63 06/01/20 09:29 O2 Sat by Pulse Oximetry (%) 97 06/01/20 09:29 Constitutional: Yes: No Distress, Calm Cardiovascular: Yes: S1, S2 Respiratory: Yes: Regular, CTA Bilaterally Gastrointestinal: Yes: Normal Bowel Sounds, Soft Extremities: Yes: Other Wound/Incision: Yes: Other (wound vac in place) Labs: CBC, BMP 05/31/20 06:04 05/31/20 06:04 INR, PTT INR 1.14 (0.83-1.09) H 05/28/20 11:20 Assessment/Plan Problem List - Problems (1) Severe sepsis Code(s): A41.9 - SEPSIS, UNSPECIFIED ORGANISM; R65.20 - SEVERE SEPSIS WITHOUT SEPTIC SHOCK (2) Bacteremia due to Gram-negative bacteria Code(s): R78.81 - BACTEREMIA (3) Status post spinal surgery Code(s): Z98.890 - OTHER SPECIFIED POSTPROCEDURAL STATES (4) Toxic metabolic encephalopathy Code(s): G92 - TOXIC ENCEPHALOPATHY (5) Urinary tract infection Code(s): N39.0 - URINARY TRACT INFECTION, SITE NOT SPECIFIED Qualifiers: Urinary tract infection type: site unspecified Hematuria presence: without hematuria Qualified Code(s): N39.0 - Urinary tract infection, site not specified Assessment/Plan 79 y.o. female with PMH of dementia, HTN, depression, lumbar stenosis s/p laminectomy, neuropathy who underwent removal of L3-L5 hardware, L3-S1 laminectomies, L5-S1 PLIF/L3-S1 PSIF on 04/09/20 and noted to develop fever up to 101.8F and increase in wbc to 16.8K along with lethargy and mild hypotension Severe Sepsis Gram negative/E. coli Bacteremia Pseudomonas UTI s/p lumbar wound I+D, s/p washout/wound vac placement plan ct current mgmt abx wound care complete the course rest as per the team as per neurology 38 days of abx done
[2020-06-01 11:38] LABS: BASO % 0.2 % (0-2.0); EOS % 14.9 % (0-4.5); HEMATOCRIT 28.8 % (32.4-45.2); HEMOGLOBIN 9.3 GM/dL (10.7-15.3); LYMPH % 5.4 % (8-40); MCH 26.5 pg (25.7-33.7); MCHC 32.2 g/dl (32.0-36.0); MEAN CELL VOLUME 82.4 fl (80-96); MEAN PLT VOLUME 7.6 fl (7.5-11.1); MONO % 3.6 % (3.8-10.2); NEUT % 75.9 % (42.8-82.8); PLATELET COUNT 440 K/MM3 (134-434); RBC 3.49 M/mm3 (3.60-5.2); RDW 17.7 % (11.6-15.6); WHITE BLOOD COUNT 16.7 K/mm3 (4.0-10.0)
[2020-06-01 12:09] LABS: ALBUMIN 1.8 g/dl (3.4-5.0); BILIRUBIN,TOTAL 0.2 mg/dL (0.2-1); BLOOD UREA NITROGEN 30.4 mg/dL (7-18); CALCIUM 8.8 mg/dL (8.5-10.1); CREATININE 0.5 mg/dL (0.55-1.3); MAGNESIUM 1.8 mg/dL (1.8-2.4); TOT PROT 6.2 g/dl (6.4-8.2)
[2020-06-01 12:48] VITALS: BMI 18.6
[2020-06-01] MEDS ORDERED: HYDROmorphone HCl 2 MG/ML VIAL IVPB SCH ×2 (16:45→18:00)
--- NOTE | 2020-06-01 17:39 | PROC ---
Procedure Note Procedure: VAC dressing removed and wet to dry dressing applied. Pre-medicated with 0.2mg IVP dilaudid x 2. Tolerated procedure well. Wound description Wound location: Other (Infected lumbar wound; opened surgically) Length (cm): 19 Width (cm): 5 Depth (cm): 5 Wound Description: Muscle exposed: Yes, Tendon exposed: Yes, Bone exposed: Yes, Undermining: No Dressing changes: --
[2020-06-01] MEDS: CITALOPRAM HYDROBROMIDE 20 MG TABLET PO SCH (21:48)
[2020-06-01] MEDS: ACETAMINOPHEN 325 MG TABLET (FP) PO PRN (21:48)
[2020-06-01] MEDS: MIRTAZAPINE 15 MG TABLET (FP) PO SCH (21:48)
[2020-06-02] MEDS: NYSTATIN 500,000 UNITS/5 ML SUSPENSION PO SCH ×4 (06:00→23:15)
[2020-06-02] MEDS: AMINO ACIDS/PROTEIN HYDROLYS 30 ML LIQUID.PKT PO SCH ×3 (06:00→17:44)
[2020-06-02] MEDS: PANTOPRAZOLE SOD 40 MG SUSPENSION PACKET PO SCH (06:00)
--- NOTE | 2020-06-02 06:20 | PN ---
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, Physician Chief Complaint: sleeping, wakes easily Denies CP/SOB/Palps History of Present Illness: PSVT CVA HTN - Current Medication List Current Medications: Active Medications Acetaminophen (Tylenol -) 650 mg PO Q6H PRN PRN Reason: Fever Last Admin: 06/01/20 21:48 Dose: 650 mg Documented by: Amino Acids (Prosource No Carb Liquid Pkt) 30 ml PO TIDAC [facility] Last Admin: 06/01/20 17:43 Dose: 30 ml Documented by: Amlodipine Besylate (Norvasc -) 10 mg PO DAILY [facility] Last Admin: 06/01/20 09:31 Dose: 10 mg Documented by: Ascorbic Acid (Vitamin C -) 500 mg PO BID [facility] Last Admin: 06/01/20 21:48 Dose: 500 mg Documented by: Citalopram Hydrobromide (Celexa -) 20 mg PO [facility] Last Admin: 06/01/20 21:48 Dose: 20 mg Documented by: Diphenhydramine HCl (Benadryl -) 25 mg PO ONCE PRN PRN Reason: itching Last Admin: 05/28/20 09:04 Dose: 25 mg Documented by: Diphenhydramine HCl (Benadryl -) 25 mg PO Q6H PRN PRN Reason: FOR ITCHING Last Admin: 05/31/20 22:24 Dose: 25 mg Documented by: Docusate Sodium (Colace Liquid -) 100 mg PO BID [facility] Last Admin: 06/01/20 21:48 Dose: 100 mg Documented by: Metoprolol Succinate (Toprol Xl -) 25 mg PO DAILY [facility] Mirtazapine (Remeron -) 7.5 mg PO [facility] Last Admin: 06/01/20 21:48 Dose: 7.5 mg Documented by: Multivitamins/Minerals (Certavite-Antioxidant Liquid) 15 ml PO DAILY [facility] Last Admin: 06/01/20 09:32 Dose: 15 ml Documented by: Nystatin (Nystatin Oral Suspension -) 500,000 units PO Q6HPO [facility] Last Admin: 06/01/20 23:38 Dose: 500,000 units Documented by: Ondansetron HCl (Zofran Injection) 4 mg IVPUSH Q6H PRN PRN Reason: NAUSEA AND/OR VOMITING Pantoprazole Sodium (Protonix Packets For Oral Suspension -) 40 mg PO ACBK [facility] Last Admin: 06/01/20 06:00 Dose: 40 mg Documented by: Polyethylene Glycol (Miralax (For Daily Use) -) 17 gm PO BID PRN PRN Reason: CONSTIPATION Senna/Docusate Sodium (Pericolace -) 1 tablet PO BID PRN PRN Reason: CONSTIPATION - Objective Vital Signs: Vital Signs Temperature 98.6 F 06/01/20 22:00 Pulse Rate 85 06/01/20 22:00 Respiratory Rate 16 06/01/20 22:00 Blood Pressure 138/63 06/01/20 22:00 O2 Sat by Pulse Oximetry (%) 98 06/01/20 21:00 Constitutional: Yes: No Distress Cardiovascular: Yes: Regular Rate and Rhythm Respiratory: Yes: CTA Bilaterally Gastrointestinal: Yes: Soft (nt) Edema: No Neurological: Yes: Alert Labs: CBC, BMP 06/01/20 11:26 06/01/20 11:26 INR, PTT INR 1.14 (0.83-1.09) H 05/28/20 11:20 Assessment/Plan DATA: echo 05/2020: nl lv/rv, mild as carotid: mild dz, no sig stenosis Assessment/Plan 80 f hx htn, hld, here for elective spine surgery, CVA, frequent PAT htn: -cont ccb, bb hld: -statin held - interacts with daptomycin cva: -cont bp control - statin held, interacts with daptomycin - aspirin held for PEG tube placement. Resume when feasible -echo and carotids unremarkable -neuro following svt: frequent -Toprol titrated to 25mg; ECG today
--- NOTE | 2020-06-02 07:12 | PN ---
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, Physician Chief Complaint: Seen and examined in bed. More awake today. VAC removed yesterday and changed to wet to dry. Family meeting with Dr Cuenca and son & niece. Plans to set up Hospice care with [facility] at home History of Present Illness: Patient is a 80 year old female with a history of hypertension, dementia, depression, spinal stenosis, neuropathy she is s/p removal of L3-L5 hardware, including L4-L5 intervertebral cage, L3-S1 laminectomy, L5-S1 PLIF, L3-S1 posterior instrumented spinal fusion. She is s/p multiple washouts for infected hardware. hospitalization complicated when patient was noted to have left upper ext weakness and brain mri showed small post periventricular infarct. She is being followed by neurology and cardiology. - Current Medication List Current Medications: Active Medications Acetaminophen (Tylenol -) 650 mg PO Q6H PRN PRN Reason: Fever Last Admin: 06/01/20 21:48 Dose: 650 mg Documented by: Amino Acids (Prosource No Carb Liquid Pkt) 30 ml PO TIDAC [facility] Last Admin: 06/02/20 06:00 Dose: 30 ml Documented by: Amlodipine Besylate (Norvasc -) 10 mg PO DAILY [facility] Last Admin: 06/01/20 09:31 Dose: 10 mg Documented by: Ascorbic Acid (Vitamin C -) 500 mg PO BID [facility] Last Admin: 06/01/20 21:48 Dose: 500 mg Documented by: Citalopram Hydrobromide (Celexa -) 20 mg PO [facility] Last Admin: 06/01/20 21:48 Dose: 20 mg Documented by: Diphenhydramine HCl (Benadryl -) 25 mg PO ONCE PRN PRN Reason: itching Last Admin: 05/28/20 09:04 Dose: 25 mg Documented by: Diphenhydramine HCl (Benadryl -) 25 mg PO Q6H PRN PRN Reason: FOR ITCHING Last Admin: 05/31/20 22:24 Dose: 25 mg Documented by: Docusate Sodium (Colace Liquid -) 100 mg PO BID [facility] Last Admin: 06/01/20 21:48 Dose: 100 mg Documented by: Metoprolol Succinate (Toprol Xl -) 25 mg PO DAILY [facility] Mirtazapine (Remeron -) 7.5 mg PO [facility] Last Admin: 06/01/20 21:48 Dose: 7.5 mg Documented by: Multivitamins/Minerals (Certavite-Antioxidant Liquid) 15 ml PO DAILY [facility] Last Admin: 06/01/20 09:32 Dose: 15 ml Documented by: Nystatin (Nystatin Oral Suspension -) 500,000 units PO Q6HPO [facility] Last Admin: 06/02/20 06:00 Dose: 500,000 units Documented by: Ondansetron HCl (Zofran Injection) 4 mg IVPUSH Q6H PRN PRN Reason: NAUSEA AND/OR VOMITING Pantoprazole Sodium (Protonix Packets For Oral Suspension -) 40 mg PO ACBK [facility] Last Admin: 06/02/20 06:00 Dose: 40 mg Documented by: Polyethylene Glycol (Miralax (For Daily Use) -) 17 gm PO BID PRN PRN Reason: CONSTIPATION Senna/Docusate Sodium (Pericolace -) 1 tablet PO BID PRN PRN Reason: CONSTIPATION - Objective Vital Signs: Vital Signs Temperature 98.0 F 06/02/20 06:00 Pulse Rate 81 06/02/20 06:00 Respiratory Rate 16 06/02/20 06:00 Blood Pressure 140/70 06/02/20 06:00 O2 Sat by Pulse Oximetry (%) 97 06/02/20 06:00 Additional Findings/Remarks: Constitutional: Yes: No Distress, Calm, Thin Eyes: Yes: WNL, Conjunctiva Clear HENT: Yes: Other (NGT to right nares) Neck: Yes: WNL, Supple, Trachea Midline Cardiovascular: Yes: WNL, Regular Rate and Rhythm Respiratory: Yes: WNL, Regular, CTA Bilaterally Gastrointestinal: Yes: Other (PEG with TF) ...Rectal Exam: Yes: Deferred Genitourinary: [place] Breast(s): Yes: WNL Musculoskeletal: Yes: WNL Extremities: Yes: WNL Edema: No Peripheral Pulses WNL: Yes Peripheral Pulses: Left Radial: 2+, Right Radial: 2+, Left Doralis Pedis: 2+, Right Dorsalis Pedis: 2+, Left Femoral: 2+, Right Femoral: 2+ Integumentary: Yes: Other (right buttocks skin shearing, does not appear to be a pressure sore/right heel unsteageable.) Wound/Incision: Yes: Other (Wound location: Other (Infected lumbar wound; opened surgically) Length (cm): 19 Width (cm): 5 Depth (cm): 5 Wound area (sq cm): 95.00 Wound Description: Muscle exposed: Yes, Tendon exposed: Yes, Bone exposed: Yes, Undermining: No) Neurological: Yes: Lethargy (responsive to verbal stimuli) ...Motor Strength: LLE, RLE (generalized weakness) Labs: CBC, BMP 06/01/20 11:26 06/01/20 11:26 INR, PTT INR 1.14 (0.83-1.09) H 05/28/20 11:20 Problem List - Problems (1) COVID-19 ruled out Assessment/Plan: PCR negative Code(s): Z03.818 - ENCNTR FOR OBS FOR SUSP EXPSR TO OTH BIOLG AGENTS RULED OUT (2) Dementia Assessment/Plan: supportive care Code(s): F03.90 - UNSPECIFIED DEMENTIA WITHOUT BEHAVIORAL DISTURBANCE (3) Depression Assessment/Plan: supportive care Code(s): F32.9 - MAJOR DEPRESSIVE DISORDER, SINGLE EPISODE, UNSPECIFIED (4) Hypertension Assessment/Plan: normotensive c/w norvasc Code(s): I10 - ESSENTIAL (PRIMARY) HYPERTENSION (5) Poor appetite Assessment/Plan: s/p PEG family meeting with son Glen Moy and niece Briana Du with Dr Cuenca to discuss GOC. Given patients poor prognosis and advanced age decision was made to proceed woth Hospice care. The Vac dressing with be discontinued also with antibiotics. We will keep patient comfortable and plan for hospice care at home c/w TF while in hospital and then c/w -dysphagia nector thick and home Code(s): R63.0 - ANOREXIA (6) Prophylactic measure Assessment/Plan: FEN Fluids: improved PO intake Electrolytes: monitor & replete as need Nut:dys diet DVT asa Dispo discharge planning-hospice care with [place] Code(s): Z29.9 - ENCOUNTER FOR PROPHYLACTIC MEASURES, UNSPECIFIED (7) Status post spinal surgery Assessment/Plan: wet to dry dressing daily Hospice Care Code(s): Z98.890 - OTHER SPECIFIED POSTPROCEDURAL STATES (8) Malnutrition Assessment/Plan: c/w nutritional supplements Code(s): E46 - UNSPECIFIED PROTEIN-CALORIE MALNUTRITION (9) Severe sepsis Assessment/Plan: spinal stenosis s/p removal of L3-L5 hardware, including L4-L5 intervertebral cage, L3-S1 laminectomy, L5-S1 PLIF, L3-S1 posterior instrumented spinal fusion. s/p multiple washouts. Hospice Care-dc abx pain control Code(s): A41.9 - SEPSIS, UNSPECIFIED ORGANISM; R65.20 - SEVERE SEPSIS WITHOUT SEPTIC SHOCK (10) Toxic metabolic encephalopathy Assessment/Plan: multifactorial mental status has improved and patient able to answer questions appropriately AMS likely secondary to sepsis Code(s): G92 - TOXIC ENCEPHALOPATHY (11) Leukocytosis Assessment/Plan: afebrile no further blood draws Code(s): D72.829 - ELEVATED WHITE BLOOD CELL COUNT, UNSPECIFIED (12) Thrombocytosis Assessment/Plan: most likely r/t sepsis and chronic infection no further blood draws Code(s): D47.3 - ESSENTIAL (HEMORRHAGIC) THROMBOCYTHEMIA (13) CVA (cerebral vascular accident) Assessment/Plan: infarct seen on brain mri 05/16/2020. asa,statin PT following speech and swallow following aspiration precautions neurology following Code(s): I63.9 - CEREBRAL INFARCTION, UNSPECIFIED (14) Severe malnutrition Assessment/Plan: s/p peg c/w supplements pleasure feeds Code(s): E43 - UNSPECIFIED SEVERE PROTEIN-CALORIE MALNUTRITION (15) Unstageable pressure ulcer of right heel Assessment/Plan: unstageable right heel pressure ulcer, purple in color, round. patient denies pain. elevate LE heel pads bl Code(s): L89.610 - PRESSURE ULCER OF RIGHT HEEL, UNSTAGEABLE (16) Encounter for hospice care discussion Assessment/Plan: 06/01 family meeting with son Glen Moy and nitimothy Du with Dr Cuenca to discuss GOC. Given patients multiple co-morbidities, advanced age, prolonged hospitalization and poor prognosis decision was made to proceed with Hospice care. The Vac dressing with be discontinued and wet to dry dressing applied. Antibiotics with be stopped. We will keep patient comfortable with narcotics and anxiolytics and plan for hospice care at home. Palliative Care team obtaining DNR/DNR. Appreciate SW and Palliative RN assistance in the care of Ms Moy Code(s): Z71.89 - OTHER SPECIFIED COUNSELING (17) Hospice care patient Assessment/Plan: request sent to [facility] Code(s): Z51.5 - ENCOUNTER FOR PALLIATIVE CARE Visit type - Emergency Visit Emergency Visit: Yes ED Registration Date: 04/09/20 Care time: The patient presented to the Emergency Department on the above date and was hospitalized for further evaluation of their emergent condition. - New Patient This patient is new to me today: No - Critical Care Critical Care patient: No - Discharge Referral Referred to [facility] Med P.C.: No - Medication Review Med list reviewed for High Risk Meds patients 65 and older: Yes
[2020-06-02] MEDS: MULTIVIT-MINERALS ORAL LIQUID PO SCH (10:45)
[2020-06-02] MEDS: amLODIPine BESYLATE 10 MG TABLET (FP) PO SCH (10:46)
[2020-06-02] MEDS: ASCORBIC ACID 500 MG TABLET (FP) PO SCH ×2 (10:46→22:08)
[2020-06-02] MEDS: DOCUSATE NA 100 MG/10 ML UNIT-DOSE CUPS PO SCH ×2 (10:46→22:08)
[2020-06-02] MEDS: metoPROLOL SUCCINATE 25 MG TAB.SR.24H (FP) PO SCH (10:46)
[2020-06-02] MEDS: ACETAMINOPHEN 325 MG TABLET (FP) PO PRN (11:23)
[2020-06-02] MEDS: ATORVASTATIN CA 40 MG TABLET (FP) PEG SCH (22:08)
[2020-06-02] MEDS: CITALOPRAM HYDROBROMIDE 20 MG TABLET PO SCH (22:09)
[2020-06-02] MEDS: MIRTAZAPINE 15 MG TABLET (FP) PO SCH (22:09)
--- NOTE | 2020-06-03 05:47 | PN ---
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, Physician Chief Complaint: alert no CP/SOB. No palps or dizziness - Current Medication List Current Medications: Active Medications Acetaminophen (Tylenol -) 650 mg PO Q6H PRN PRN Reason: Fever Last Admin: 06/02/20 11:23 Dose: 650 mg Documented by: Amino Acids (Prosource No Carb Liquid Pkt) 30 ml PO TIDAC [facility] Last Admin: 06/02/20 17:44 Dose: 30 ml Documented by: Amlodipine Besylate (Norvasc -) 10 mg PO DAILY [facility] Last Admin: 06/02/20 10:46 Dose: 10 mg Documented by: Ascorbic Acid (Vitamin C -) 500 mg PO BID [facility] Last Admin: 06/02/20 22:08 Dose: 500 mg Documented by: Atorvastatin Calcium (Lipitor -) 40 mg PEG [facility] Last Admin: 06/02/20 22:08 Dose: 40 mg Documented by: Citalopram Hydrobromide (Celexa -) 20 mg PO [facility] Last Admin: 06/02/20 22:09 Dose: 20 mg Documented by: Diphenhydramine HCl (Benadryl -) 25 mg PO ONCE PRN PRN Reason: itching Last Admin: 05/28/20 09:04 Dose: 25 mg Documented by: Diphenhydramine HCl (Benadryl -) 25 mg PO Q6H PRN PRN Reason: FOR ITCHING Last Admin: 05/31/20 22:24 Dose: 25 mg Documented by: Docusate Sodium (Colace Liquid -) 100 mg PO BID [facility] Last Admin: 06/02/20 22:08 Dose: 100 mg Documented by: Metoprolol Succinate (Toprol Xl -) 25 mg PO DAILY [facility] Last Admin: 06/02/20 10:46 Dose: 25 mg Documented by: Mirtazapine (Remeron -) 7.5 mg PO [facility] Last Admin: 06/02/20 22:09 Dose: 7.5 mg Documented by: Multivitamins/Minerals (Certavite-Antioxidant Liquid) 15 ml PO DAILY [facility] Last Admin: 06/02/20 10:45 Dose: 15 ml Documented by: Nystatin (Nystatin Oral Suspension -) 500,000 units PO Q6HPO [facility] Last Admin: 06/02/20 23:15 Dose: 500,000 units Documented by: Ondansetron HCl (Zofran Injection) 4 mg IVPUSH Q6H PRN PRN Reason: NAUSEA AND/OR VOMITING Pantoprazole Sodium (Protonix Packets For Oral Suspension -) 40 mg PO ACBK [facility] Last Admin: 06/02/20 06:00 Dose: 40 mg Documented by: Polyethylene Glycol (Miralax (For Daily Use) -) 17 gm PO BID PRN PRN Reason: CONSTIPATION Senna/Docusate Sodium (Pericolace -) 1 tablet PO BID PRN PRN Reason: CONSTIPATION - Objective Vital Signs: Vital Signs Temperature 98.4 F 06/02/20 17:48 Pulse Rate 61 06/02/20 22:00 Respiratory Rate 18 06/02/20 22:00 Blood Pressure 132/61 06/02/20 22:00 O2 Sat by Pulse Oximetry (%) 100 06/02/20 22:00 Constitutional: Yes: No Distress, Calm Cardiovascular: Yes: Regular Rate and Rhythm Respiratory: Yes: CTA Bilaterally Gastrointestinal: Yes: Soft (nt) Edema: No Neurological: Yes: Alert, Oriented Labs: CBC, BMP 06/01/20 11:26 06/01/20 11:26 INR, PTT INR 1.14 (0.83-1.09) H 05/28/20 11:20 - ....Imaging EKG: Image Reviewed Assessment/Plan DATA: echo 05/2020: nl lv/rv, mild as carotid: mild dz, no sig stenosis Assessment/Plan 80 f hx htn, hld, here for elective spine surgery, CVA, frequent PAT htn: -cont ccb, bb hld: -statin held - interacts with daptomycin cva: -cont bp control - statin held, interacts with daptomycin - aspirin held for PEG tube placement. Resume when feasible -echo and carotids unremarkable -neuro following svt: frequent -Toprol titrated to 25mg; tolerated well
[2020-06-03] MEDS: AMINO ACIDS/PROTEIN HYDROLYS 30 ML LIQUID.PKT PO SCH ×3 (06:01→16:14)
[2020-06-03] MEDS: NYSTATIN 500,000 UNITS/5 ML SUSPENSION PO SCH ×4 (06:01→23:09)
[2020-06-03] MEDS: PANTOPRAZOLE SOD 40 MG SUSPENSION PACKET PO SCH (06:01)
--- NOTE | 2020-06-03 08:12 | PN ---
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, Physician History of Present Illness: Patient is a 80 year old female with a history of hypertension, dementia, depression, spinal stenosis, neuropathy she is s/p removal of L3-L5 hardware, including L4-L5 intervertebral cage, L3-S1 laminectomy, L5-S1 PLIF, L3-S1 posterior instrumented spinal fusion. She is s/p multiple washouts for infected hardware. hospitalization complicated when patient was noted to have left upper ext weakness and brain mri showed small post periventricular infarct. She is being followed by neurology and cardiology. - Current Medication List Current Medications: Active Medications Acetaminophen (Tylenol -) 650 mg PO Q6H PRN PRN Reason: Fever Last Admin: 06/02/20 11:23 Dose: 650 mg Documented by: Amino Acids (Prosource No Carb Liquid Pkt) 30 ml PO TIDAC [facility] Last Admin: 06/03/20 06:01 Dose: 30 ml Documented by: Amlodipine Besylate (Norvasc -) 10 mg PO DAILY [facility] Last Admin: 06/02/20 10:46 Dose: 10 mg Documented by: Ascorbic Acid (Vitamin C -) 500 mg PO BID [facility] Last Admin: 06/02/20 22:08 Dose: 500 mg Documented by: Atorvastatin Calcium (Lipitor -) 40 mg PEG [facility] Last Admin: 06/02/20 22:08 Dose: 40 mg Documented by: Citalopram Hydrobromide (Celexa -) 20 mg PO [facility] Last Admin: 06/02/20 22:09 Dose: 20 mg Documented by: Diphenhydramine HCl (Benadryl -) 25 mg PO ONCE PRN PRN Reason: itching Last Admin: 05/28/20 09:04 Dose: 25 mg Documented by: Diphenhydramine HCl (Benadryl -) 25 mg PO Q6H PRN PRN Reason: FOR ITCHING Last Admin: 05/31/20 22:24 Dose: 25 mg Documented by: Docusate Sodium (Colace Liquid -) 100 mg PO BID [facility] Last Admin: 06/02/20 22:08 Dose: 100 mg Documented by: Metoprolol Succinate (Toprol Xl -) 25 mg PO DAILY [facility] Last Admin: 06/02/20 10:46 Dose: 25 mg Documented by: Mirtazapine (Remeron -) 7.5 mg PO [facility] Last Admin: 06/02/20 22:09 Dose: 7.5 mg Documented by: Multivitamins/Minerals (Certavite-Antioxidant Liquid) 15 ml PO DAILY [facility] Last Admin: 06/02/20 10:45 Dose: 15 ml Documented by: Nystatin (Nystatin Oral Suspension -) 500,000 units PO Q6HPO [facility] Last Admin: 06/03/20 06:01 Dose: 500,000 units Documented by: Ondansetron HCl (Zofran Injection) 4 mg IVPUSH Q6H PRN PRN Reason: NAUSEA AND/OR VOMITING Pantoprazole Sodium (Protonix Packets For Oral Suspension -) 40 mg PO ACBK [facility] Last Admin: 06/03/20 06:01 Dose: 40 mg Documented by: Polyethylene Glycol (Miralax (For Daily Use) -) 17 gm PO BID PRN PRN Reason: CONSTIPATION Senna/Docusate Sodium (Pericolace -) 1 tablet PO BID PRN PRN Reason: CONSTIPATION - Objective Vital Signs: Vital Signs Temperature 97.9 F 06/03/20 06:00 Pulse Rate 81 06/03/20 06:00 Respiratory Rate 20 06/03/20 06:00 Blood Pressure 116/51 L 06/03/20 06:00 O2 Sat by Pulse Oximetry (%) 97 06/03/20 06:00 Labs: CBC, BMP 06/01/20 11:26 06/01/20 11:26 INR, PTT INR 1.14 (0.83-1.09) H 05/28/20 11:20 Problem List - Problems (1) COVID-19 ruled out Code(s): Z03.818 - ENCNTR FOR OBS FOR SUSP EXPSR TO OT BIOLG AGENTS RULED OUT (2) Dementia Code(s): F03.90 - UNSPECIFIED DEMENTIA WITHOUT BEHAVIORAL DISTURBANCE (3) Depression Code(s): F32.9 - MAJOR DEPRESSIVE DISORDER, SINGLE EPISODE, UNSPECIFIED (4) Hypertension Code(s): I10 - ESSENTIAL (PRIMARY) HYPERTENSION (5) Poor appetite Code(s): R63.0 - ANOREXIA (6) Prophylactic measure Code(s): Z29.9 - ENCOUNTER FOR PROPHYLACTIC MEASURES, UNSPECIFIED (7) Status post spinal surgery Code(s): Z98.890 - OTHER SPECIFIED POSTPROCEDURAL STATES (8) Malnutrition Code(s): E46 - UNSPECIFIED PROTEIN-CALORIE MALNUTRITION (9) Severe sepsis Code(s): A41.9 - SEPSIS, UNSPECIFIED ORGANISM; R65.20 - SEVERE SEPSIS WITHOUT SEPTIC SHOCK (10) Toxic metabolic encephalopathy Code(s): G92 - TOXIC ENCEPHALOPATHY (11) Leukocytosis Code(s): D72.829 - ELEVATED WHITE BLOOD CELL COUNT, UNSPECIFIED (12) Thrombocytosis Code(s): D47.3 - ESSENTIAL (HEMORRHAGIC) THROMBOCYTHEMIA (13) CVA (cerebral vascular accident) Code(s): I63.9 - CEREBRAL INFARCTION, UNSPECIFIED (14) Severe malnutrition Code(s): E43 - UNSPECIFIED SEVERE PROTEIN-CALORIE MALNUTRITION (15) Unstageable pressure ulcer of right heel Code(s): L89.610 - PRESSURE ULCER OF RIGHT HEEL, UNSTAGEABLE (16) Encounter for hospice care discussion Code(s): Z71.89 - OTHER SPECIFIED COUNSELING (17) Hospice care patient Code(s): Z51.5 - ENCOUNTER FOR PALLIATIVE CARE
[2020-06-03] MEDS ORDERED: PT OWN MED DRAWER 7, Y5N ONE (10:31)
[2020-06-03] MEDS: ASCORBIC ACID 500 MG TABLET (FP) PO SCH ×2 (10:32→22:34)
[2020-06-03] MEDS: DOCUSATE NA 100 MG/10 ML UNIT-DOSE CUPS PO SCH ×2 (10:32→22:34)
[2020-06-03] MEDS: MULTIVIT-MINERALS ORAL LIQUID PO SCH (10:32)
[2020-06-03] MEDS: metoPROLOL SUCCINATE 25 MG TAB.SR.24H (FP) PO SCH (10:32)
[2020-06-03] MEDS: amLODIPine BESYLATE 10 MG TABLET (FP) PO SCH (10:32)
--- NOTE | 2020-06-03 12:05 | EKG ---
Test Reason : Blood Pressure : / mmHG Vent. Rate : 079 BPM Atrial Rate : 079 BPM P-R Int : 156 ms QRS Dur : 080 ms QT Int : 388 ms P-R-T Axes : -06 047 085 degrees QTc Int : 444 ms NORMAL SINUS RHYTHM NONSPECIFIC T WAVE ABNORMALITY ABNORMAL ECG WHEN COMPARED WITH ECG OF 19-FEB-2020 00:39, NONSPECIFIC T WAVE ABNORMALITY Confirmed by JACKY PAEZ MD ([id number]) on 06/03/2020 12:05:27 PM Referred By: Haydee NAVARRETE Confirmed By:JACKY PAEZ MD
--- NOTE | 2020-06-03 13:12 | PN ---
Physical Exam: SUBJECTIVE: Patient seen and examined, peg feeding infusing, tolerating pt for hospice/calvary no further blood work at home OBJECTIVE: Vital Signs Period Temp Pulse Resp BP Sys/Lepe Pulse Ox Last 24 Hr 97.9 F-98.4 F 61-89 18-20 116-145/51-75 97-100 GENERAL: The patient is awake, alert, and fully oriented, in no acute distress. HEAD: Normal with no signs of trauma. EYES: PERRL, extraocular movements intact, sclera anicteric, conjunctiva clear. No ptosis. ENT: Ears normal, nares patent, oropharynx clear without exudates, moist mucous membranes. NECK: Trachea midline, full range of motion, supple. LUNGS: Breath sounds equal, clear to auscultation bilaterally, no wheezes, no crackles, no accessory muscle use. HEART: Regular rate and rhythm, S1, S2 without murmur, rub or gallop. ABDOMEN: Soft, nontender, nondistended, normoactive bowel sounds, no guarding, no rebound, no hepatosplenomegaly, no masses. EXTREMITIES: 2+ pulses, warm, well-perfused, no edema. NEUROLOGICAL: Cranial nerves II through XII grossly intact. Normal speech, gait not observed. PSYCH: Normal mood, normal affect. SKIN: Warm, dry, normal turgor, no rashes or lesions noted Laboratory Results - last 24 hr 06/03/20 05:11 POC Glucometer 111 Active Medications Generic Name Dose Route Start Last Admin Trade Name Freq PRN Reason Stop Dose Admin Acetaminophen 650 mg 05/16/20 20:58 06/02/20 11:23 Tylenol - PO 650 mg Q6H PRN Administration Fever Amino Acids 30 ml 05/20/20 01:07 06/03/20 10:32 Prosource No Carb Liquid Pkt PO 30 ml TIDAC JAYE Administration Amlodipine Besylate 10 mg 05/21/20 10:00 06/03/20 10:32 Norvasc - PO 10 mg DAILY JAYE Administration Ascorbic Acid 500 mg 05/16/20 22:00 06/03/20 10:32 Vitamin C - PO 500 mg BID JAYE Administration Atorvastatin Calcium 40 mg 06/02/20 22:00 06/02/20 22:08 Lipitor - PEG 40 mg HS JAYE Administration Citalopram Hydrobromide 20 mg 05/16/20 22:00 06/02/20 22:09 Celexa - PO 20 mg HS JAYE Administration Diphenhydramine HCl 25 mg 05/27/20 16:58 05/28/20 09:04 Benadryl - PO 25 mg ONCE PRN Administration itching Diphenhydramine HCl 25 mg 05/28/20 08:52 05/31/20 22:24 Benadryl - PO 25 mg Q6H PRN Administration FOR ITCHING Docusate Sodium 100 mg 05/18/20 11:15 06/03/20 10:32 Colace Liquid - PO 100 mg BID JAYE Administration Metoprolol Succinate 25 mg 06/02/20 10:00 06/03/20 10:32 Toprol Xl - PO 25 mg DAILY JYAE Administration Mirtazapine 7.5 mg 05/16/20 22:00 06/02/20 22:09 Remeron - PO 7.5 mg HS JAYE Administration Multivitamins/Minerals 15 ml 05/17/20 10:00 06/03/20 10:32 Certavite-Antioxidant Liquid PO 15 ml DAILY JAYE Administration Nystatin 500,000 units 05/18/20 18:00 06/03/20 12:50 Nystatin Oral Suspension - PO 500,000 units Q6HPO JAYE Administration Ondansetron HCl 4 mg 05/16/20 20:58 Zofran Injection IVPUSH Q6H PRN NAUSEA AND/OR VOMITING Pantoprazole Sodium 40 mg 05/17/20 07:00 06/03/20 06:01 Protonix Packets For Oral Suspension - PO 40 mg ACBK JAYE Administration Polyethylene Glycol 17 gm 05/16/20 20:58 Miralax (For Daily Use) - PO BID PRN CONSTIPATION Senna/Docusate Sodium 1 tablet 05/16/20 20:58 Pericolace - PO BID PRN CONSTIPATION ASSESSMENT/PLAN: (1) COVID-19 ruled out Assessment/Plan: PCR negative Code(s): Z03.818 - ENCNTR FOR OBS FOR SUSP EXPSR TO OTH BIOLG AGENTS RULED OUT (2) Dementia Assessment/Plan: supportive care Code(s): F03.90 - UNSPECIFIED DEMENTIA WITHOUT BEHAVIORAL DISTURBANCE (3) Depression Assessment/Plan: supportive care Code(s): F32.9 - MAJOR DEPRESSIVE DISORDER, SINGLE EPISODE, UNSPECIFIED (4) Hypertension Assessment/Plan: normotensive c/w norvasc Code(s): I10 - ESSENTIAL (PRIMARY) HYPERTENSION (5) Poor appetite Assessment/Plan: s/p PEG family meeting with son Glen Moy and niece Briana Du with Dr Cuenca to discuss GOC. Given patients poor prognosis and advanced age decision was made to proceed woth Hospice care. The Vac dressing with be discontinued also with antibiotics. We will keep patient comfortable and plan for hospice care at home c/w TF while in hospital and then c/w -dysphagia nector thick and home Code(s): R63.0 - ANOREXIA (6) Prophylactic measure Assessment/Plan: FEN Fluids: improved PO intake Electrolytes: monitor & replete as need Nut:dys diet DVT asa Dispo discharge planning-hospice care with [place] Code(s): Z29.9 - ENCOUNTER FOR PROPHYLACTIC MEASURES, UNSPECIFIED (7) Status post spinal surgery Assessment/Plan: wet to dry dressing daily Hospice Care Code(s): Z98.890 - OTHER SPECIFIED POSTPROCEDURAL STATES (8) Malnutrition Assessment/Plan: c/w nutritional supplements Code(s): E46 - UNSPECIFIED PROTEIN-CALORIE MALNUTRITION (9) Severe sepsis Assessment/Plan: spinal stenosis s/p removal of L3-L5 hardware, including L4-L5 intervertebral cage, L3-S1 laminectomy, L5-S1 PLIF, L3-S1 posterior instrumented spinal fusion. s/p multiple washouts. Hospice Care-dc abx pain control Code(s): A41.9 - SEPSIS, UNSPECIFIED ORGANISM; R65.20 - SEVERE SEPSIS WITHOUT SEPTIC SHOCK (10) Toxic metabolic encephalopathy Assessment/Plan: multifactorial mental status has improved and patient able to answer questions appropriately AMS likely secondary to sepsis Code(s): G92 - TOXIC ENCEPHALOPATHY (11) Leukocytosis Assessment/Plan: afebrile no further blood draws Code(s): D72.829 - ELEVATED WHITE BLOOD CELL COUNT, UNSPECIFIED (12) Thrombocytosis Assessment/Plan: most likely r/t sepsis and chronic infection no further blood draws Code(s): D47.3 - ESSENTIAL (HEMORRHAGIC) THROMBOCYTHEMIA (13) CVA (cerebral vascular accident) Assessment/Plan: infarct seen on brain mri 05/16/2020. asa,statin PT following speech and swallow following aspiration precautions neurology following Code(s): I63.9 - CEREBRAL INFARCTION, UNSPECIFIED (14) Severe malnutrition Assessment/Plan: s/p peg c/w supplements pleasure feeds Code(s): E43 - UNSPECIFIED SEVERE PROTEIN-CALORIE MALNUTRITION (15) Unstageable pressure ulcer of right heel Assessment/Plan: unstageable right heel pressure ulcer, purple in color, round. patient denies pain. elevate LE heel pads bl Code(s): L89.610 - PRESSURE ULCER OF RIGHT HEEL, UNSTAGEABLE (16) Encounter for hospice care discussion Assessment/Plan: 06/01 family meeting with son Glen Moy and nitimothy Du with Dr Cuenca to discuss GOC. Given patients multiple co-morbidities, advanced age, prolonged hospitalization and poor prognosis decision was made to proceed with Hospice care. The Vac dressing with be discontinued and wet to dry dressing applied. Antibiotics with be stopped. We will keep patient comfortable with narcotics and anxiolytics and plan for hospice care at home. Palliative Care team obtaining DNR/DNR. Appreciate and Palliative RN assistance in the care of Ms Moy Code(s): Z71.89 - OTHER SPECIFIED COUNSELING (17) Hospice care patient Assessment/Plan: request sent to [facility] Code(s): Z51.5 - ENCOUNTER FOR PALLIATIVE CARE Visit type - Emergency Visit Emergency Visit: Yes ED Registration Date: 04/09/20 Care time: The patient presented to the Emergency Department on the above date and was hospitalized for further evaluation of their emergent condition. - New Patient This patient is new to me today: Yes Date on this admission: 06/03/20 - Critical Care Critical Care patient: No - Discharge Referral Referred to [facility] Med P.C.: No - Medication Review Med list reviewed for High Risk Meds patients 65 and older: No
--- NOTE | 2020-06-03 17:08 | PN ---
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, Physician History of Present Illness: Events noted. Pt now in Hospice care. Antibiotics d/c'd. Currently she is alert, denies pain. No specific complaints. - Current Medication List Current Medications: Active Medications Acetaminophen (Tylenol -) 650 mg PO Q6H PRN PRN Reason: Fever Last Admin: 06/02/20 11:23 Dose: 650 mg Documented by: Amino Acids (Prosource No Carb Liquid Pkt) 30 ml PO TIDAC [facility] Last Admin: 06/03/20 16:14 Dose: 30 ml Documented by: Amlodipine Besylate (Norvasc -) 10 mg PO DAILY [facility] Last Admin: 06/03/20 10:32 Dose: 10 mg Documented by: Ascorbic Acid (Vitamin C -) 500 mg PO BID [facility] Last Admin: 06/03/20 10:32 Dose: 500 mg Documented by: Atorvastatin Calcium (Lipitor -) 40 mg PEG [facility] Last Admin: 06/02/20 22:08 Dose: 40 mg Documented by: Citalopram Hydrobromide (Celexa -) 20 mg PO [facility] Last Admin: 06/02/20 22:09 Dose: 20 mg Documented by: Diphenhydramine HCl (Benadryl -) 25 mg PO ONCE PRN PRN Reason: itching Last Admin: 05/28/20 09:04 Dose: 25 mg Documented by: Diphenhydramine HCl (Benadryl -) 25 mg PO Q6H PRN PRN Reason: FOR ITCHING Last Admin: 05/31/20 22:24 Dose: 25 mg Documented by: Docusate Sodium (Colace Liquid -) 100 mg PO BID [facility] Last Admin: 06/03/20 10:32 Dose: 100 mg Documented by: Metoprolol Succinate (Toprol Xl -) 25 mg PO DAILY [facility] Last Admin: 06/03/20 10:32 Dose: 25 mg Documented by: Mirtazapine (Remeron -) 7.5 mg PO [facility] Last Admin: 06/02/20 22:09 Dose: 7.5 mg Documented by: Multivitamins/Minerals (Certavite-Antioxidant Liquid) 15 ml PO DAILY [facility] Last Admin: 06/03/20 10:32 Dose: 15 ml Documented by: Nystatin (Nystatin Oral Suspension -) 500,000 units PO Q6HPO [facility] Last Admin: 06/03/20 12:50 Dose: 500,000 units Documented by: Ondansetron HCl (Zofran Injection) 4 mg IVPUSH Q6H PRN PRN Reason: NAUSEA AND/OR VOMITING Pantoprazole Sodium (Protonix Packets For Oral Suspension -) 40 mg PO ACBK [facility] Last Admin: 06/03/20 06:01 Dose: 40 mg Documented by: Polyethylene Glycol (Miralax (For Daily Use) -) 17 gm PO BID PRN PRN Reason: CONSTIPATION Senna/Docusate Sodium (Pericolace -) 1 tablet PO BID PRN PRN Reason: CONSTIPATION - Objective Vital Signs: Vital Signs Temperature 97.7 F 06/03/20 14:00 Pulse Rate 79 06/03/20 14:00 Respiratory Rate 18 06/03/20 14:00 Blood Pressure 127/65 06/03/20 14:00 O2 Sat by Pulse Oximetry (%) 97 06/03/20 14:00 Constitutional: Yes: No Distress, Calm Cardiovascular: Yes: Regular Rate and Rhythm Respiratory: Yes: Regular Gastrointestinal: Yes: Normal Bowel Sounds, Soft Extremities: Yes: WNL Edema: No Integumentary: Yes: WNL Wound/Incision: Yes: Dressing Dry and Intact Neurological: Yes: Alert Labs: CBC, BMP 06/01/20 11:26 06/01/20 11:26 INR, PTT INR 1.14 (0.83-1.09) H 05/28/20 11:20 Microbiology 05/20/20 16:16 Blood - Peripheral Venous Blood Culture - Final NO GROWTH AFTER 5 DAYS INCUBATION 05/20/20 16:10 Blood - Peripheral Venous Blood Culture - Final NO GROWTH AFTER 5 DAYS INCUBATION 05/21/20 00:00 Urine - Urine [place] Urine Culture - Final Yeast Like Organism 05/11/20 13:14 Wound Gram Stain - Final 05/11/20 13:14 Wound Wound Culture - Final NO GROWTH AFTER 48 HOURS INCUBATION 05/11/20 13:15 Wound Gram Stain - Final 05/11/20 13:15 Wound Wound Culture - Final NO GROWTH AFTER 48 HOURS INCUBATION 04/28/20 22:45 Stool Gram Stain - Final 04/28/20 22:45 Stool Clostridioides difficile Antigen - Final 04/28/20 22:45 Stool Clostridioides difficile Toxin Assay - Final 04/25/20 16:29 Back Gram Stain - Final 04/25/20 16:29 Back Wound Culture - Final Staphylococcus Coagulase Neg 04/23/20 13:12 Back Gram Stain - Final 04/23/20 13:12 Back Wound Culture - Final Pseudomonas Aeruginosa Vr Ec Faecalis 04/19/20 10:18 Blood - Peripheral Venous Blood Culture - Final NO GROWTH AFTER 5 DAYS INCUBATION 04/19/20 10:11 Blood - Peripheral Venous Blood Culture - Final NO GROWTH AFTER 5 DAYS INCUBATION 04/20/20 15:08 Back Gram Stain - Final 04/20/20 15:08 Back Wound Culture - Final Escherichia Coli Vr Ec Faecalis 04/18/20 17:34 Wound Gram Stain - Final 04/18/20 17:34 Wound Wound Culture - Final Vr Ec Faecalis Escherichia Coli Citrobacter Murliniae 04/17/20 12:14 Blood - Peripheral Venous Blood Culture - Final Non Lactose Fermenting Gnb 04/17/20 12:05 Urine - Urine - Catheterized Urine Culture - Final Pseudomonas Aeruginosa 04/17/20 12:10 Blood - Peripheral Venous Blood Culture - Final Escherichia Coli Problem List - Problems (1) Severe sepsis Code(s): A41.9 - SEPSIS, UNSPECIFIED ORGANISM; R65.20 - SEVERE SEPSIS WITHOUT SEPTIC SHOCK (2) Bacteremia due to Gram-negative bacteria Code(s): R78.81 - BACTEREMIA (3) Status post spinal surgery Code(s): Z98.890 - OTHER SPECIFIED POSTPROCEDURAL STATES (4) Toxic metabolic encephalopathy Code(s): G92 - TOXIC ENCEPHALOPATHY (5) Urinary tract infection Code(s): N39.0 - URINARY TRACT INFECTION, SITE NOT SPECIFIED Qualifiers: Urinary tract infection type: site unspecified Hematuria presence: without hematuria Qualified Code(s): N39.0 - Urinary tract infection, site not specified Assessment/Plan Severe Sepsis - resolved Gram negative/E. coli Bacteremia Pseudomonas UTI Wound infection s/p lumbar wound I+D, s/p washout - Pseudomonas/VRE on previous wound cultures Leukocytosis -- pt stable/afebrile -- hospice care, antibiotics were d/c'd
[2020-06-03] MEDS: MIRTAZAPINE 15 MG TABLET (FP) PO SCH (22:34)
[2020-06-03] MEDS: CITALOPRAM HYDROBROMIDE 20 MG TABLET PO SCH (22:34)
[2020-06-03] MEDS: ATORVASTATIN CA 40 MG TABLET (FP) PEG SCH (22:34)
[2020-06-04] MEDS: NYSTATIN 500,000 UNITS/5 ML SUSPENSION PO SCH ×4 (06:23→23:05)
[2020-06-04] MEDS: AMINO ACIDS/PROTEIN HYDROLYS 30 ML LIQUID.PKT PO SCH ×3 (06:23→17:16)
[2020-06-04] MEDS: PANTOPRAZOLE SOD 40 MG SUSPENSION PACKET PO SCH (06:23)
[2020-06-04] MEDS: ACETAMINOPHEN 325 MG TABLET (FP) PO PRN ×2 (07:09→23:06)
[2020-06-04 07:48] LABS: ALBUMIN 2.1 g/dl (3.4-5.0); BILIRUBIN,TOTAL 0.2 mg/dL (0.2-1); BLOOD UREA NITROGEN 39.2 mg/dL (7-18); CREATININE 0.5 mg/dL (0.55-1.3); MAGNESIUM 2.2 mg/dL (1.8-2.4); POTASSIUM 4.1 mmol/L (3.5-5.1); TOT PROT 6.9 g/dl (6.4-8.2)
[2020-06-04] MEDS: ASCORBIC ACID 500 MG TABLET (FP) PO SCH ×2 (10:50→23:03)
[2020-06-04] MEDS: amLODIPine BESYLATE 10 MG TABLET (FP) PO SCH (10:50)
[2020-06-04] MEDS: MULTIVIT-MINERALS ORAL LIQUID PO SCH (10:50)
[2020-06-04] MEDS: DOCUSATE NA 100 MG/10 ML UNIT-DOSE CUPS PO SCH ×2 (10:50→23:03)
[2020-06-04] MEDS: metoPROLOL SUCCINATE 25 MG TAB.SR.24H (FP) PO SCH (10:50)
--- NOTE | 2020-06-04 11:45 | PN ---
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 (short form) - Note 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: Chief Complaint: no CP/SOB/palps/dizzy Current Medications Generic Name Dose Route Start Last Admin Trade Name Freq PRN Reason Stop Dose Admin Acetaminophen 650 mg 05/16/20 20:58 06/04/20 07:09 Tylenol - PO 650 mg Q6H PRN Administration Fever Amino Acids 30 ml 05/20/20 01:07 06/04/20 10:50 Prosource No Carb Liquid Pkt PO 30 ml TIDAC JAYE Administration Amlodipine Besylate 10 mg 05/21/20 10:00 06/04/20 10:50 Norvasc - PO 10 mg DAILY JAYE Administration Ascorbic Acid 500 mg 05/16/20 22:00 06/04/20 10:50 Vitamin C - PO 500 mg BID JAYE Administration Atorvastatin Calcium 40 mg 06/02/20 22:00 06/03/20 22:34 Lipitor - PEG 40 mg HS JAYE Administration Citalopram Hydrobromide 20 mg 05/16/20 22:00 06/03/20 22:34 Celexa - PO 20 mg HS JAYE Administration Diphenhydramine HCl 25 mg 05/27/20 16:58 05/28/20 09:04 Benadryl - PO 25 mg ONCE PRN Administration itching Diphenhydramine HCl 25 mg 05/28/20 08:52 05/31/20 22:24 Benadryl - PO 25 mg Q6H PRN Administration FOR ITCHING Docusate Sodium 100 mg 05/18/20 11:15 06/04/20 10:50 Colace Liquid - PO 100 mg BID JAYE Administration Metoprolol Succinate 25 mg 06/02/20 10:00 06/04/20 10:50 Toprol Xl - PO 25 mg DAILY JAYE Administration Mirtazapine 7.5 mg 05/16/20 22:00 06/03/20 22:34 Remeron - PO 7.5 mg HS JAYE Administration Multivitamins/Minerals 15 ml 05/17/20 10:00 06/04/20 10:50 Certavite-Antioxidant Liquid PO 15 ml DAILY JAYE Administration Nystatin 500,000 units 05/18/20 18:00 06/04/20 06:23 Nystatin Oral Suspension - PO 500,000 units Q6HPO JAYE Administration Ondansetron HCl 4 mg 08/12/20 20:58 Zofran Injection IVPUSH Q6H PRN NAUSEA AND/OR VOMITING Pantoprazole Sodium 40 mg 05/17/20 07:00 06/04/20 06:23 Protonix Packets For Oral Suspension - PO 40 mg ACBK JAYE Administration Polyethylene Glycol 17 gm 05/16/20 20:58 Miralax (For Daily Use) - PO BID PRN CONSTIPATION Senna/Docusate Sodium 1 tablet 05/16/20 20:58 Pericolace - PO BID PRN CONSTIPATION Vital Signs Period Temp Pulse Resp BP Sys/Lepe Pulse Ox Last 24 Hr 97.7 F-98.0 F 77-82 18-20 112-127/49-65 96-98 Constitutional: Yes: No Distress Cardiovascular: Yes: Regular Rate and Rhythm Respiratory: Yes: CTA Bilaterally Gastrointestinal: Yes: Soft (nt) Edema: No Neurological: Yes: Other (left sided weakness) no jaundice diaphoresis awake alert Labs: CBC, BMP 06/01/20 11:26 06/04/20 06:32 - ....Imaging EKG: Image Reviewed Assessment/Plan DATA: echo 05/2020: nl lv/rv, mild as carotid: mild dz, no sig stenosis 80 f hx htn, hld, here for elective spine surgery, CVA, frequent PAT htn: -cont ccb, bb hld: -statin held - interacts with daptomycin cva: -cont bp control - statin held, interacts with daptomycin - aspirin held for PEG tube placement. Resume when feasible -echo and carotids unremarkable -neuro following svt: -Toprol titrated to 25mg; tolerated well
--- NOTE | 2020-06-04 11:52 | PN ---
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 (short form) - Note 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: S: No pain today. Tired feeling. No events overnight. Ongoing process for [facility]. O: Vital Signs Temperature 98.0 F 06/04/20 06:00 Pulse Rate 77 06/04/20 06:00 Respiratory Rate 20 06/04/20 06:00 Blood Pressure 112/49 L 06/04/20 06:00 O2 Sat by Pulse Oximetry (%) 96 06/04/20 10:00 PE: Gen: NAD, awake, oriented to self and place HEENT: MMM, CHARLI LUNG: CTA b/l without any wheezes. O2 96% CARD: RRR no murmurs appreciated ABD: Soft, Nt/Nd, no guarding EXT: No edema, distal pulses intact b/l skin: sacrum not examined today CBC, BMP 06/01/20 11:26 06/04/20 06:32 Microbiology 05/20/20 16:16 Blood - Peripheral Venous Blood Culture - Final NO GROWTH AFTER 5 DAYS INCUBATION 05/20/20 16:10 Blood - Peripheral Venous Blood Culture - Final NO GROWTH AFTER 5 DAYS INCUBATION 05/21/20 00:00 Urine - Urine [place] Urine Culture - Final Yeast Like Organism 05/11/20 13:14 Wound Gram Stain - Final 05/11/20 13:14 Wound Wound Culture - Final NO GROWTH AFTER 48 HOURS INCUBATION 05/11/20 13:15 Wound Gram Stain - Final 05/11/20 13:15 Wound Wound Culture - Final NO GROWTH AFTER 48 HOURS INCUBATION 04/28/20 22:45 Stool Gram Stain - Final 04/28/20 22:45 Stool Clostridioides difficile Antigen - Final 04/28/20 22:45 Stool Clostridioides difficile Toxin Assay - Final 04/25/20 16:29 Back Gram Stain - Final 04/25/20 16:29 Back Wound Culture - Final Staphylococcus Coagulase Neg 04/23/20 13:12 Back Gram Stain - Final 04/23/20 13:12 Back Wound Culture - Final Pseudomonas Aeruginosa Vr Ec Faecalis 04/19/20 10:18 Blood - Peripheral Venous Blood Culture - Final NO GROWTH AFTER 5 DAYS INCUBATION 04/19/20 10:11 Blood - Peripheral Venous Blood Culture - Final NO GROWTH AFTER 5 DAYS INCUBATION 04/20/20 15:08 Back Gram Stain - Final 04/20/20 15:08 Back Wound Culture - Final Escherichia Coli Vr Ec Faecalis 04/18/20 17:34 Wound Gram Stain - Final 04/18/20 17:34 Wound Wound Culture - Final Vr Ec Faecalis Escherichia Coli Citrobacter Murliniae 04/17/20 12:14 Blood - Peripheral Venous Blood Culture - Final Non Lactose Fermenting Gnb 04/17/20 12:05 Urine - Urine - Catheterized Urine Culture - Final Pseudomonas Aeruginosa 04/17/20 12:10 Blood - Peripheral Venous Blood Culture - Final Escherichia Coli A/P: Toxic metabolic encephalopathy 2/2 sepsis syndrome (improved) CVA 05/16/2020 Unstageable R Heel ulcer Dementia Depression HTN --Patient is awaiting hospice approval --Palliative care team is on board --Pt code status needed to be clarified; will discuss with palliative --Decision to withdraw antibiotics were made on previous days --no lab draws to continue --c/w TF while in hospital and then c/w dysphagia nector thick home --Wound Vac discontinued due to above --Keep heel pads and offload LE --Case management on board. Dispo: Hospice care Isaac Grimes DO
--- NOTE | 2020-06-04 11:55 | PN ---
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, Physician History of Present Illness: no new issues final plan being planned off of bax now - Current Medication List Current Medications: Active Medications Acetaminophen (Tylenol -) 650 mg PO Q6H PRN PRN Reason: Fever Last Admin: 06/04/20 07:09 Dose: 650 mg Documented by: Amino Acids (Prosource No Carb Liquid Pkt) 30 ml PO TIDAC [facility] Last Admin: 06/04/20 10:50 Dose: 30 ml Documented by: Amlodipine Besylate (Norvasc -) 10 mg PO DAILY [facility] Last Admin: 06/04/20 10:50 Dose: 10 mg Documented by: Ascorbic Acid (Vitamin C -) 500 mg PO BID [facility] Last Admin: 06/04/20 10:50 Dose: 500 mg Documented by: Atorvastatin Calcium (Lipitor -) [address] [facility] Last Admin: 06/03/20 22:34 Dose: 40 mg Documented by: Citalopram Hydrobromide (Celexa -) [address] [facility] Last Admin: 06/03/20 22:34 Dose: 20 mg Documented by: Diphenhydramine HCl (Benadryl -) 25 mg PO ONCE PRN PRN Reason: itching Last Admin: 05/28/20 09:04 Dose: 25 mg Documented by: Diphenhydramine HCl (Benadryl -) 25 mg PO Q6H PRN PRN Reason: FOR ITCHING Last Admin: 05/31/20 22:24 Dose: 25 mg Documented by: Docusate Sodium (Colace Liquid -) 100 mg PO BID [facility] Last Admin: 06/04/20 10:50 Dose: 100 mg Documented by: Metoprolol Succinate (Toprol Xl -) 25 mg PO DAILY [facility] Last Admin: 06/04/20 10:50 Dose: 25 mg Documented by: Mirtazapine (Remeron -) 7.[address] [facility] Last Admin: 06/03/20 22:34 Dose: 7.5 mg Documented by: Multivitamins/Minerals (Certavite-Antioxidant Liquid) 15 ml PO DAILY [facility] Last Admin: 06/04/20 10:50 Dose: 15 ml Documented by: Nystatin (Nystatin Oral Suspension -) 500,000 units PO Q6HPO [facility] Last Admin: 06/04/20 06:23 Dose: 500,000 units Documented by: Ondansetron HCl (Zofran Injection) 4 mg IVPUSH Q6H PRN PRN Reason: NAUSEA AND/OR VOMITING Pantoprazole Sodium (Protonix Packets For Oral Suspension -) [facility] Admin: 06/04/20 06:23 Dose: 40 mg Documented by: Polyethylene Glycol (Miralax (For Daily Use) -) 17 gm PO BID PRN PRN Reason: CONSTIPATION Senna/Docusate Sodium (Pericolace -) 1 tablet PO BID PRN PRN Reason: CONSTIPATION - Objective Vital Signs: Vital Signs Temperature 98.0 F 06/04/20 06:00 Pulse Rate 77 06/04/20 06:00 Respiratory Rate 20 06/04/20 06:00 Blood Pressure 112/49 L 06/04/20 06:00 O2 Sat by Pulse Oximetry (%) 96 06/04/20 10:00 Constitutional: Yes: No Distress Eyes: Yes: Conjunctiva Clear Cardiovascular: Yes: S1, S2 Respiratory: Yes: Regular, CTA Bilaterally Gastrointestinal: Yes: Normal Bowel Sounds, Soft Genitourinary: Yes: [place] Present Musculoskeletal: Yes: WNL Extremities: Yes: WNL Wound/Incision: Yes: Other Labs: CBC, BMP 06/01/20 11:26 06/04/20 06:32 INR, PTT INR 1.14 (0.83-1.09) H 05/28/20 11:20 Assessment/Plan Problem List - Problems (1) Severe sepsis Code(s): A41.9 - SEPSIS, UNSPECIFIED ORGANISM; R65.20 - SEVERE SEPSIS WITHOUT SEPTIC SHOCK (2) Bacteremia due to Gram-negative bacteria Code(s): R78.81 - BACTEREMIA (3) Status post spinal surgery Code(s): Z98.890 - OTHER SPECIFIED POSTPROCEDURAL STATES (4) Toxic metabolic encephalopathy Code(s): G92 - TOXIC ENCEPHALOPATHY (5) Urinary tract infection Code(s): N39.0 - URINARY TRACT INFECTION, SITE NOT SPECIFIED Qualifiers: Urinary tract infection type: site unspecified Hematuria presence: without hematuria Qualified Code(s): N39.0 - Urinary tract infection, site not specified Assessment/Plan 79 y.o. female with PMH of dementia, HTN, depression, lumbar stenosis s/p laminectomy, neuropathy who underwent removal of L3-L5 hardware, L3-S1 laminectomies, L5-S1 PLIF/L3-S1 PSIF on 04/09/20 and noted to develop fever up to 101.8F and increase in wbc to 16.8K along with lethargy and mild hypotension Severe Sepsis Gram negative/E. coli Bacteremia Pseudomonas UTI s/p lumbar wound I+D, s/p washout/wound vac placement plan ct current mgmt supportive care wound care rest as per the team
[2020-06-04] MEDS: CITALOPRAM HYDROBROMIDE 20 MG TABLET PO SCH (23:02)
[2020-06-04] MEDS: MIRTAZAPINE 15 MG TABLET (FP) PO SCH (23:03)
[2020-06-04] MEDS: ATORVASTATIN CA 40 MG TABLET (FP) PEG SCH (23:03)
[2020-06-05] MEDS: NYSTATIN 500,000 UNITS/5 ML SUSPENSION PO SCH ×4 (06:19→23:14)
[2020-06-05] MEDS: PANTOPRAZOLE SOD 40 MG SUSPENSION PACKET PO SCH (06:20)
[2020-06-05] MEDS: AMINO ACIDS/PROTEIN HYDROLYS 30 ML LIQUID.PKT PO SCH ×3 (06:20→17:41)
[2020-06-05] MEDS: ACETAMINOPHEN 325 MG TABLET (FP) PO PRN ×3 (06:47→23:14)
[2020-06-05 08:57] LABS: BILIRUBIN,TOTAL 0.2 mg/dL (0.2-1); BLOOD UREA NITROGEN 40.5 mg/dL (7-18); CALCIUM 9.2 mg/dL (8.5-10.1); CREATININE 0.6 mg/dL (0.55-1.3); MAGNESIUM 2.1 mg/dL (1.8-2.4); POTASSIUM 4.2 mmol/L (3.5-5.1); TOT PROT 6.4 g/dl (6.4-8.2)
[2020-06-05] MEDS: ASCORBIC ACID 500 MG TABLET (FP) PO SCH ×2 (10:49→22:19)
[2020-06-05] MEDS: DOCUSATE NA 100 MG/10 ML UNIT-DOSE CUPS PO SCH ×2 (10:49→22:19)
[2020-06-05] MEDS: amLODIPine BESYLATE 10 MG TABLET (FP) PO SCH (10:49)
[2020-06-05] MEDS: MULTIVIT-MINERALS ORAL LIQUID PO SCH (10:49)
[2020-06-05] MEDS: metoPROLOL SUCCINATE 25 MG TAB.SR.24H (FP) PO SCH (10:49)
--- NOTE | 2020-06-05 12:03 | PN ---
Physical Exam: SUBJECTIVE: Patient seen and examined. lethargic in bed. answers some questions appropriately. OBJECTIVE: Patient is a 80 year old female with a history of hypertension, dementia, depression, spinal stenosis, neuropathy she is s/p removal of L3-L5 hardware, including L4-L5 intervertebral cage, L3-S1 laminectomy, L5-S1 PLIF, L3-S1 posterior instrumented spinal fusion. She is s/p multiple washouts for infected hardware. hospitalization complicated when patient was noted to have left upper ext weakness and brain mri showed small post periventricular infarct. She is being followed by neurology and cardiology. Patient had a peg tube placed on 05/29/2020. Family made decision to withdraw antibiotics and no lab draws also. Wound vac discontinued and patient placed on wet to dry Vital Signs Period Temp Pulse Resp BP Sys/Lepe Pulse Ox Last 24 Hr 98.3 F-98.8 F 74-80 17-20 125-135/54-68 99-99 GENERAL: awake, weak appearing, answers some questions appropriately HEAD: Normal with no signs of trauma. EYES: PERRL, legally blind both eyes sclera anicteric, conjunctiva clear. No ptosis. ENT: Ears normal, nares patent, oropharynx clear without exudates NECK: Trachea midline, full range of motion, supple. LUNGS: lungs diminished at the bases, no wheezes, rhonchi, or rales, good chest expansion, tolerating room air. SPINE: wound vac removed HEART: Regular rate and rhythm, no m/r/g, normal s1s2 ABDOMEN: Soft, nontender, nondistended, normoactive bowel sounds, no guarding EXTREMITIES: no edema. unstageable wound of right heel. left hand contracted, able to move right arm, but difficulty moving left arm. NEUROLOGICAL: Normal speech, gait not observed. PSYCH: calm, cooperative, normal mood SKIN: right buttocks skin shearing, does not appear to be a pressure sore/right heel unsteageable. Laboratory Results - last 24 hr 06/05/20 08:00 Sodium 140 Potassium 4.2 Chloride 105 Carbon Dioxide 31 Anion Gap 5 L BUN 40.5 H Creatinine 0.6 Est GFR (CKD-EPI)AfAm 101.18 Est GFR (CKD-EPI)NonAf 87.30 Random Glucose 115 H Calcium 9.2 Magnesium 2.1 Total Bilirubin 0.2 AST 39 H ALT 34 Alkaline Phosphatase 110 Total Protein 6.4 Albumin 2.0 L Active Medications Generic Name Dose Route Start Last Admin Trade Name Freq PRN Reason Stop Dose Admin Acetaminophen 650 mg 05/16/20 20:58 06/05/20 06:47 Tylenol - PO 650 mg Q6H PRN Administration Fever Amino Acids 30 ml 05/20/20 01:07 06/05/20 10:49 Prosource No Carb Liquid Pkt PO 30 ml TIDAC JAYE Administration Amlodipine Besylate 10 mg 05/21/20 10:00 06/05/20 10:49 Norvasc - PO 10 mg DAILY JAYE Administration Ascorbic Acid 500 mg 05/16/20 22:00 06/05/20 10:49 Vitamin C - PO 500 mg BID JAYE Administration Atorvastatin Calcium 40 mg 06/02/20 22:00 06/04/20 23:03 Lipitor - PEG 40 mg HS JAYE Administration Citalopram Hydrobromide 20 mg 05/16/20 22:00 06/04/20 23:02 Celexa - PO 20 mg HS JAYE Administration Diphenhydramine HCl 25 mg 05/27/20 16:58 05/28/20 09:04 Benadryl - PO 25 mg ONCE PRN Administration itching Diphenhydramine HCl 25 mg 05/28/20 08:52 05/31/20 22:24 Benadryl - PO 25 mg Q6H PRN Administration FOR ITCHING Docusate Sodium 100 mg 05/18/20 11:15 06/05/20 10:49 Colace Liquid - PO 100 mg BID JAYE Administration Metoprolol Succinate 25 mg 06/02/20 10:00 06/05/20 10:49 Toprol Xl - PO 25 mg DAILY JAYE Administration Mirtazapine 7.5 mg 05/16/20 22:00 06/04/20 23:03 Remeron - PO 7.5 mg HS [facility] Administration Multivitamins/Minerals 15 ml 05/17/20 10:00 06/05/20 10:49 Certavite-Antioxidant Liquid PO 15 ml DAILY JAYE Administration Nystatin 500,000 units 05/18/20 18:00 06/05/20 06:19 Nystatin Oral Suspension - PO 500,000 units Q6HPO JAYE Administration Ondansetron HCl 4 mg 05/16/20 20:58 Zofran Injection IVPUSH Q6H PRN NAUSEA AND/OR VOMITING Pantoprazole Sodium 40 mg 05/17/20 07:00 06/05/20 06:20 Protonix Packets For Oral Suspension - PO 40 mg ACBK JAYE Administration Polyethylene Glycol 17 gm 05/16/20 20:58 Miralax (For Daily Use) - PO BID PRN CONSTIPATION Senna/Docusate Sodium 1 tablet 05/16/20 20:58 Pericolace - PO BID PRN CONSTIPATION ASSESSMENT/PLAN: Problem List - Problems (1) CVA (cerebral vascular accident) Assessment/Plan: recent infarct seen on brain mri 05/16/2020. on asa, statin therapy physical therapy following speech and swallow following neurology following Code(s): I63.9 - CEREBRAL INFARCTION, UNSPECIFIED (2) Severe sepsis Assessment/Plan: spinal stenosis. s/p removal of L3-L5 hardware, including L4-L5 intervertebral cage, L3-S1 laminectomy, L5-S1 PLIF, L3-S1 posterior instrumented spinal fusion. s/p multiple washouts now with wound vac was on daptomycin and meropenem per ID but now all antibiotics discontinued as GOC being discussed. patient s/p washout 05/12/2020 no further lab draws Code(s): A41.9 - SEPSIS, UNSPECIFIED ORGANISM; R65.20 - SEVERE SEPSIS WITHOUT SEPTIC SHOCK (3) Unstageable pressure ulcer of right heel Assessment/Plan: unstageable right heel pressure ulcer, purple in color, round. patient denies pain. plan to continue to: - elevate heels at all times. - add santyl daily - vascular evaluated, notes reviewed - monitor wound daily Code(s): L89.610 - PRESSURE ULCER OF RIGHT HEEL, UNSTAGEABLE (4) Poor appetite Assessment/Plan: peg tube placed 05/29/2020 Code(s): R63.0 - ANOREXIA (5) Toxic metabolic encephalopathy Assessment/Plan: mental status has improved patient noted to have an acute stroke per brain mri 05/16/2020 Code(s): G92 - TOXIC ENCEPHALOPATHY (6) Status post spinal surgery Assessment/Plan: Wound culture from 04/23/2020 grew pseudomonas Code(s): Z98.890 - OTHER SPECIFIED POSTPROCEDURAL STATES (7) At risk for dehydration due to poor fluid intake Assessment/Plan: on tube feeds Code(s): Z91.89 - OTH PERSONAL RISK FACTORS, NOT ELSEWHERE CLASSIFIED (8) Encounter for tube feeding instruction Assessment/Plan: continue tube feeds Code(s): Z71.89 - OTHER SPECIFIED COUNSELING (9) Prophylactic measure Assessment/Plan: fen monitor electrolytes dietary following full code Code(s): Z29.9 - ENCOUNTER FOR PROPHYLACTIC MEASURES, UNSPECIFIED (10) DVT prophylaxis Assessment/Plan: SCDs Code(s): Z29.9 - ENCOUNTER FOR PROPHYLACTIC MEASURES, UNSPECIFIED Visit type - Emergency Visit Emergency Visit: Yes ED Registration Date: 04/09/20 Care time: The patient presented to the Emergency Department on the above date and was hospitalized for further evaluation of their emergent condition. - New Patient This patient is new to me today: No - Critical Care Critical Care patient: No - Discharge Referral Referred to [facility] Med P.C[facility] No - Medication Review Med list reviewed for High Risk Meds patients 65 and older: Yes
--- NOTE | 2020-06-05 12:56 | PN ---
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 (short form) - Note 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: s: no chest pain, palps, dizziness, dyspnea Current Medications Generic Name Dose Route Start Last Admin Trade Name Freq PRN Reason Stop Dose Admin Acetaminophen 650 mg 05/16/20 20:58 06/05/20 06:47 Tylenol - PO 650 mg Q6H PRN Administration Fever Amino Acids 30 ml 05/20/20 01:07 06/05/20 10:49 Prosource No Carb Liquid Pkt PO 30 ml TIDAC JAYE Administration Amlodipine Besylate 10 mg 05/21/20 10:00 06/05/20 10:49 Norvasc - PO 10 mg DAILY JAYE Administration Ascorbic Acid 500 mg 05/16/20 22:00 06/05/20 10:49 Vitamin C - PO 500 mg BID JAYE Administration Atorvastatin Calcium 40 mg 06/02/20 22:00 06/04/20 23:03 Lipitor - PEG 40 mg HS JAYE Administration Citalopram Hydrobromide 20 mg 05/16/20 22:00 06/04/20 23:02 Celexa - PO 20 mg HS JAYE Administration Diphenhydramine HCl 25 mg 05/27/20 16:58 05/28/20 09:04 Benadryl - PO 25 mg ONCE PRN Administration itching Diphenhydramine HCl 25 mg 05/28/20 08:52 05/31/20 22:24 Benadryl - PO 25 mg Q6H PRN Administration FOR ITCHING Docusate Sodium 100 mg 05/18/20 11:15 06/05/20 10:49 Colace Liquid - PO 100 mg BID JAYE Administration Metoprolol Succinate 25 mg 06/02/20 10:00 06/05/20 10:49 Toprol Xl - PO 25 mg DAILY JAYE Administration Mirtazapine 7.5 mg 05/16/20 22:00 06/04/20 23:03 Remeron - PO 7.5 mg HS JAYE Administration Multivitamins/Minerals 15 ml 05/17/20 10:00 06/05/20 10:49 Certavite-Antioxidant Liquid PO 15 ml DAILY JAYE Administration Nystatin 500,000 units 05/18/20 18:00 06/05/20 12:31 Nystatin Oral Suspension - PO 500,000 units Q6HPO JAYE Administration Ondansetron HCl 4 mg 05/16/20 20:58 Zofran Injection IVPUSH Q6H PRN NAUSEA AND/OR VOMITING Pantoprazole Sodium 40 mg 05/17/20 07:00 06/05/20 06:20 Protonix Packets For Oral Suspension - PO 40 mg ACBK JAYE Administration Polyethylene Glycol 17 gm 05/16/20 20:58 Miralax (For Daily Use) - PO BID PRN CONSTIPATION Senna/Docusate Sodium 1 tablet 05/16/20 20:58 Pericolace - PO BID PRN CONSTIPATION Vital Signs Period Temp Pulse Resp BP Sys/Lepe Pulse Ox Last 24 Hr 98.3 F-98.8 F 74-80 17-20 125-135/54-68 99-99 Constitutional: Yes: No Distress Cardiovascular: Yes: Regular Rate and Rhythm Respiratory: Yes: CTA Bilaterally Gastrointestinal: Yes: Soft (nt) Edema: No Neurological: Yes: Other (left sided weakness) no jaundice diaphoresis awake alert DATA: echo 05/2020: nl lv/rv, mild as carotid: mild dz, no sig stenosis 80 f hx htn, hld, here for elective spine surgery, CVA, frequent PAT htn: -cont ccb, bb hld: -statin held - interacts with daptomycin cva: -cont bp control - cont statin - aspirin held for PEG tube placement. Resume when feasible -echo and carotids unremarkable -neuro following svt: -Toprol titrated to 25mg; tolerated well
[2020-06-05] MEDS: CITALOPRAM HYDROBROMIDE 20 MG TABLET PO SCH (22:19)
[2020-06-05] MEDS: ATORVASTATIN CA 40 MG TABLET (FP) PEG SCH (22:19)
[2020-06-05] MEDS: MIRTAZAPINE 15 MG TABLET (FP) PO SCH (22:19)
[2020-06-06] MEDS: NYSTATIN 500,000 UNITS/5 ML SUSPENSION PO SCH ×4 (06:14→23:15)
[2020-06-06] MEDS: AMINO ACIDS/PROTEIN HYDROLYS 30 ML LIQUID.PKT PO SCH ×3 (06:14→17:51)
[2020-06-06] MEDS: PANTOPRAZOLE SOD 40 MG SUSPENSION PACKET PO SCH (06:14)
[2020-06-06] MEDS ORDERED: PT OWN MED DRAWER 7, Y5N ONE (09:16)
[2020-06-06] MEDS: metoPROLOL SUCCINATE 25 MG TAB.SR.24H (FP) PO SCH (09:17)
[2020-06-06] MEDS: ASPIRIN 81 MG CHEWABLE TABLETS GT SCH (09:17)
[2020-06-06] MEDS: ASCORBIC ACID 500 MG TABLET (FP) PO SCH ×2 (09:18→21:53)
[2020-06-06] MEDS: MULTIVIT-MINERALS ORAL LIQUID PO SCH (09:18)
[2020-06-06] MEDS: amLODIPine BESYLATE 10 MG TABLET (FP) PO SCH (09:18)
[2020-06-06] MEDS: DOCUSATE NA 100 MG/10 ML UNIT-DOSE CUPS PO SCH ×2 (09:19→21:54)
--- NOTE | 2020-06-06 10:50 | PN ---
Physical Exam: SUBJECTIVE: Patient seen and examined OBJECTIVE: Hospital bed: Patient will need a semi electric hospital bed with a gel overlay mattress. Patient has limited mobility due to recent surgery and altered mental status. Patient will require frequent body position changes which she cannot complete independently and are not feasible with a regular bed to alleviate pain, prevent aspiration and prevent further skin breakdown. Patient has a large wound on her back from surgery as well as a left heal unsteageable wound. Patients condition requires positioning of the body to alleviate pain, prevent contractures and avoid respiratory infection in ways not feasible in an ordinary bed. The patient requires the head of the bed to be elevated more than 30 degrees most of the time for PEG tube feeds and to avoid aspiration as she continues to be a high risk for aspiration. Pillows or wedges have been tried and failed. Patient condition requires special attachments that cannot be affixed to or used on a ordinary bed. The patient is completely immobile and cannot make changes in body position without assistance. She is a very high risk for aspiration secondary to AMS and PEG tube. Patient is a 80 year old female with a history of hypertension, dementia, depression, spinal stenosis, neuropathy she is s/p removal of L3-L5 hardware, including L4-L5 intervertebral cage, L3-S1 laminectomy, L5-S1 PLIF, L3-S1 posterior instrumented spinal fusion. She is s/p multiple washouts for infected hardware. hospitalization complicated when patient was noted to have left upper ext weakness and brain mri showed small post periventricular infarct. She is being followed by neurology and cardiology. Patient had a peg tube placed on 05/29/2020. Spoke to Dr. Gomez who will come in today and remove the rest of the vac foam from wound family meeting at 4pm to address discharge needs. Vital Signs Period Temp Pulse Resp BP Sys/Lepe Pulse Ox Last 24 Hr 97.9 F-98.2 F 76-82 18-18 127-150/60-73 96-98 GENERAL: awake, weak appearing, answers some questions appropriately HEAD: Normal with no signs of trauma. EYES: PERRL, legally blind both eyes sclera anicteric, conjunctiva clear. No ptosis. ENT: Ears normal, nares patent, oropharynx clear without exudates NECK: Trachea midline, full range of motion, supple. LUNGS: lungs diminished at the bases, no wheezes, rhonchi, or rales, good chest expansion, tolerating room air. SPINE: wound vac removed HEART: Regular rate and rhythm, no m/r/g, normal s1s2 ABDOMEN: Soft, nontender, nondistended, normoactive bowel sounds, no guarding EXTREMITIES: no edema. unstageable wound of right heel. left hand contracted, able to move right arm, but difficulty moving left arm. NEUROLOGICAL: Normal speech, gait not observed. PSYCH: calm, cooperative, normal mood SKIN: large back wound, vac removed. wet to dry dressings ordered. some retained vac foam deep inside wound to be removed by dr gomez Active Medications Generic Name Dose Route Start Last Admin Trade Name Freq PRN Reason Stop Dose Admin Acetaminophen 650 mg 05/16/20 20:58 06/05/20 23:14 Tylenol - PO 650 mg Q6H PRN Administration Fever Amino Acids 30 ml 05/20/20 01:07 06/06/20 06:14 Prosource No Carb Liquid Pkt PO 30 ml TIDAC JAYE Administration Amlodipine Besylate 10 mg 05/21/20 10:00 06/06/20 09:18 Norvasc - PO 10 mg DAILY JAYE Administration Ascorbic Acid 500 mg 05/16/20 22:00 06/06/20 09:18 Vitamin C - PO 500 mg BID JAYE Administration Aspirin 81 mg 06/06/20 10:00 06/06/20 09:17 Asa - GT 81 mg DAILY JAYE Administration Atorvastatin Calcium 40 mg 06/02/20 22:00 06/05/20 22:19 Lipitor - PEG 40 mg HS JAYE Administration Citalopram Hydrobromide 20 mg 05/16/20 22:00 06/05/20 22:19 Celexa - PO 20 mg HS JAYE Administration Diphenhydramine HCl 25 mg 05/27/20 16:58 05/28/20 09:04 Benadryl - PO 25 mg ONCE PRN Administration itching Diphenhydramine HCl 25 mg 05/28/20 08:52 05/31/20 22:24 Benadryl - PO 25 mg Q6H PRN Administration FOR ITCHING Docusate Sodium 100 mg 05/18/20 11:15 06/06/20 09:19 Colace Liquid - PO 100 mg BID JAYE Administration Metoprolol Succinate 25 mg 06/02/20 10:00 06/06/20 09:17 Toprol Xl - PO 25 mg DAILY JAYE Administration Mirtazapine 7.5 mg 05/16/20 22:00 06/05/20 22:19 Remeron - PO 7.5 mg HS JAYE Administration Multivitamins/Minerals 15 ml 05/17/20 10:00 06/06/20 09:18 Certavite-Antioxidant Liquid PO 15 ml DAILY JAYE Administration Nystatin 500,000 units 05/18/20 18:00 06/06/20 06:14 Nystatin Oral Suspension - PO 500,000 units Q6HPO JAYE Administration Ondansetron HCl 4 mg 05/16/20 20:58 Zofran Injection IVPUSH Q6H PRN NAUSEA AND/OR VOMITING Pantoprazole Sodium 40 mg 05/17/20 07:00 06/06/20 06:14 Protonix Packets For Oral Suspension - PO 40 mg ACBK JAYE Administration Polyethylene Glycol 17 gm 05/16/20 20:58 Miralax (For Daily Use) - PO BID PRN CONSTIPATION Senna/Docusate Sodium 1 tablet 05/16/20 20:58 Pericolace - PO BID PRN CONSTIPATION ASSESSMENT/PLAN: Problem List - Problems (1) CVA (cerebral vascular accident) Assessment/Plan: recent infarct seen on brain mri 05/16/2020. on asa, statin therapy physical therapy following speech and swallow following neurology following Code(s): I63.9 - CEREBRAL INFARCTION, UNSPECIFIED (2) Severe sepsis Assessment/Plan: spinal stenosis. s/p removal of L3-L5 hardware, including L4-L5 intervertebral cage, L3-S1 laminectomy, L5-S1 PLIF, L3-S1 posterior instrumented spinal fusion. s/p multiple washouts now with wound vac was on daptomycin and meropenem per ID but now all antibiotics discontinued as GOC being discussed. patient s/p washout 05/12/2020 no further lab draws Code(s): A41.9 - SEPSIS, UNSPECIFIED ORGANISM; R65.20 - SEVERE SEPSIS WITHOUT SEPTIC SHOCK (3) Unstageable pressure ulcer of right heel Assessment/Plan: unstageable right heel pressure ulcer, purple in color, round. patient denies pain. plan to continue to: - elevate heels at all times. - add santyl daily - vascular evaluated, notes reviewed - monitor wound daily Code(s): L89.610 - PRESSURE ULCER OF RIGHT HEEL, UNSTAGEABLE (4) Poor appetite Assessment/Plan: peg tube placed 05/29/2020 Code(s): R63.0 - ANOREXIA (5) Toxic metabolic encephalopathy Assessment/Plan: mental status has improved patient noted to have an acute stroke per brain mri 05/16/2020 Code(s): G92 - TOXIC ENCEPHALOPATHY (6) Status post spinal surgery Assessment/Plan: Wound culture from 04/23/2020 grew pseudomonas Code(s): Z98.890 - OTHER SPECIFIED POSTPROCEDURAL STATES (7) At risk for dehydration due to poor fluid intake Assessment/Plan: on tube feeds Code(s): Z91.89 - OTH PERSONAL RISK FACTORS, NOT ELSEWHERE CLASSIFIED (8) Encounter for tube feeding instruction Assessment/Plan: continue tube feeds Code(s): Z71.89 - OTHER SPECIFIED COUNSELING (9) Prophylactic measure Assessment/Plan: fen monitor electrolytes dietary following full code Code(s): Z29.9 - ENCOUNTER FOR PROPHYLACTIC MEASURES, UNSPECIFIED (10) DVT prophylaxis Assessment/Plan: SCDs Code(s): Z29.9 - ENCOUNTER FOR PROPHYLACTIC MEASURES, UNSPECIFIED Visit type - Emergency Visit Emergency Visit: Yes ED Registration Date: 04/09/20 Care time: The patient presented to the Emergency Department on the above date and was hospitalized for further evaluation of their emergent condition. - New Patient This patient is new to me today: No - Critical Care Critical Care patient: No - Discharge Referral Referred to [facility] Med P.C.: No - Medication Review Med list reviewed for High Risk Meds patients 65 and older: Yes
--- NOTE | 2020-06-06 12:31 | PN ---
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 (short form) - Note 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: s: no chest pain, palps, dizziness, dyspnea Current Medications Generic Name Dose Route Start Last Admin Trade Name Freq PRN Reason Stop Dose Admin Acetaminophen 650 mg 05/16/20 20:58 06/05/20 23:14 Tylenol - PO 650 mg Q6H PRN Administration Fever Amino Acids 30 ml 05/20/20 01:07 06/06/20 11:53 Prosource No Carb Liquid Pkt PO 30 ml TIDAC JAYE Administration Amlodipine Besylate 10 mg 05/21/20 10:00 06/06/20 09:18 Norvasc - PO 10 mg DAILY JAYE Administration Ascorbic Acid 500 mg 05/16/20 22:00 06/06/20 09:18 Vitamin C - PO 500 mg BID JAYE Administration Aspirin 81 mg 06/06/20 10:00 06/06/20 09:17 Asa - GT 81 mg DAILY JAYE Administration Atorvastatin Calcium 40 mg 06/02/20 22:00 06/05/20 22:19 Lipitor - PEG 40 mg HS JAYE Administration Citalopram Hydrobromide 20 mg 05/16/20 22:00 06/05/20 22:19 Celexa - PO 20 mg HS JAYE Administration Diphenhydramine HCl 25 mg 05/27/20 16:58 05/28/20 09:04 Benadryl - PO 25 mg ONCE PRN Administration itching Diphenhydramine HCl 25 mg 05/28/20 08:52 05/31/20 22:24 Benadryl - PO 25 mg Q6H PRN Administration FOR ITCHING Docusate Sodium 100 mg 05/18/20 11:15 06/06/20 09:19 Colace Liquid - PO 100 mg BID JAYE Administration Metoprolol Succinate 25 mg 06/02/20 10:00 06/06/20 09:17 Toprol Xl - PO 25 mg DAILY JAYE Administration Mirtazapine 7.5 mg 05/16/20 22:00 06/05/20 22:19 Remeron - PO 7.5 mg HS JAYE Administration Multivitamins/Minerals 15 ml 05/17/20 10:00 06/06/20 09:18 Certavite-Antioxidant Liquid PO 15 ml DAILY JAYE Administration Nystatin 500,000 units 05/18/20 18:00 06/06/20 11:53 Nystatin Oral Suspension - PO 500,000 units Q6HPO JAYE Administration Ondansetron HCl 4 mg 05/16/20 20:58 Zofran Injection IVPUSH Q6H PRN NAUSEA AND/OR VOMITING Pantoprazole Sodium 40 mg 05/17/20 07:00 06/06/20 06:14 Protonix Packets For Oral Suspension - PO 40 mg ACBK JAYE Administration Polyethylene Glycol 17 gm 05/16/20 20:58 Miralax (For Daily Use) - PO BID PRN CONSTIPATION Senna/Docusate Sodium 1 tablet 05/16/20 20:58 Pericolace - PO BID PRN CONSTIPATION Vital Signs Period Temp Pulse Resp BP Sys/Lepe Pulse Ox Last 24 Hr 97.9 F-98.2 F 76-82 18-18 127-150/60-73 96-98 Constitutional: Yes: No Distress Cardiovascular: Yes: Regular Rate and Rhythm Respiratory: Yes: CTA Bilaterally Gastrointestinal: Yes: Soft (nt) Edema: No Neurological: Yes: Other (left sided weakness) no jaundice diaphoresis awake alert DATA: echo 05/2020: nl lv/rv, mild as carotid: mild dz, no sig stenosis 80 f hx htn, hld, here for elective spine surgery, CVA, frequent PAT htn: -cont ccb, bb hld: -cont statin cva: -cont bp control - cont statin, aspirin -echo and carotids unremarkable -neuro following svt: -Toprol titrated to 25mg; tolerated well
[2020-06-06] MEDS ORDERED: morphine CARPU-JECT 2 MG/1 ML DISP.SYRIN IVPUSH ONE (16:03)
[2020-06-06] MEDS ORDERED: MORPHINE SULFATE 2 MG/ML VIAL ONE (16:13)
[2020-06-06] MEDS: MIRTAZAPINE 15 MG TABLET (FP) PO SCH (21:53)
[2020-06-06] MEDS: ATORVASTATIN CA 40 MG TABLET (FP) PEG SCH (21:53)
[2020-06-06] MEDS: CITALOPRAM HYDROBROMIDE 20 MG TABLET PO SCH (21:53)
[2020-06-06] MEDS: oxyCODONE HCL 5 MG TABLET PO PRN (23:15)
[2020-06-07] MEDS: NYSTATIN 500,000 UNITS/5 ML SUSPENSION PO SCH ×3 (06:10→17:35)
[2020-06-07] MEDS: PANTOPRAZOLE SOD 40 MG SUSPENSION PACKET PO SCH (06:10)
[2020-06-07] MEDS: AMINO ACIDS/PROTEIN HYDROLYS 30 ML LIQUID.PKT PO SCH ×3 (06:10→16:58)
--- NOTE | 2020-06-07 07:30 | HOSP ---
Physical Examination Vital Signs: Vital Signs Temperature 98.4 F 06/07/20 06:00 Pulse Rate 78 06/07/20 06:00 Respiratory Rate 18 06/07/20 06:00 Blood Pressure 130/59 L 06/07/20 06:00 O2 Sat by Pulse Oximetry (%) 96 06/07/20 06:00 Labs: CBC, BMP 06/01/20 11:26 06/05/20 08:00 Hospitalist Encounter Assessment: Family meeting held in the [facility] [address] at 4:10pm on 06/06/2020. Attendees: ROSEY Stewart, Isis Reinoso RN, Palliative care, Monika (patient primary RN for the day), Glen Moy (Patient's son) and Renea (patient's niece) and myself. Purpose of meeting was to discuss GOC going forward: Per family, they want to abide by Makenna's wishes and focus on comfort. They are declining any further surgeries and would like patient on hospice care. They would like to continue the peg tube feeds at home. They decline further antibiotics or further blood draws son signed a DNR/DNI and I entered it on [facility] Renea was taught the extensive care that Mrs Moy would need by primary RN Monika (wound care, turn and position, feeds, aspiration precautions, skin care, avila care, etc). Family states that they will be with Mrs Moy around the clock and will have help with an aide emotional support provided
[2020-06-07] MEDS ORDERED: PT OWN MED DRAWER 7, Y5N ONE (09:58)
[2020-06-07] MEDS: DOCUSATE NA 100 MG/10 ML UNIT-DOSE CUPS PO SCH ×2 (10:09→22:25)
[2020-06-07] MEDS: metoPROLOL SUCCINATE 25 MG TAB.SR.24H (FP) PO SCH (10:10)
[2020-06-07] MEDS: ASPIRIN 81 MG CHEWABLE TABLETS GT SCH (10:10)
[2020-06-07] MEDS: ASCORBIC ACID 500 MG TABLET (FP) PO SCH ×2 (10:10→22:26)
[2020-06-07] MEDS: MULTIVIT-MINERALS ORAL LIQUID PO SCH (10:10)
[2020-06-07] MEDS: amLODIPine BESYLATE 10 MG TABLET (FP) PO SCH (10:10)
--- NOTE | 2020-06-07 10:12 | PN ---
Physical Exam: SUBJECTIVE: Patient seen and examined. tells me that she is comfortable. mild generalized pain today. OBJECTIVE: from my prior note: [facility] at 4:10pm on 06/06/2020. Attendees: ROSEY Stewart, Isis Reinoso RN, Palliative care, Monika (patient primary RN for the day), Glen Chinmay (Patient's son) and Renea (patient's niece) and myself. Purpose of meeting was to discuss GOC going forward: Per family, they want to abide by Makenna's wishes and focus on comfort. They are declining any further surgeries and would like patient on hospice care. They would like to continue the peg tube feeds at home. They decline further antibiotics or further blood draws son signed a DNR/DNI and I entered it on [employer] Renea was taught the extensive care that Mrs Moy would need by primary RN Monika (wound care, turn and position, feeds, aspiration precautions, skin care, avila care, etc). Family states that they will be with Mrs Moy around the clock and will have help with an aide emotional support provided ------ Patient is a 80 year old female with a history of hypertension, dementia, depression, spinal stenosis, neuropathy she is s/p removal of L3-L5 hardware, including L4-L5 intervertebral cage, L3-S1 laminectomy, L5-S1 PLIF, L3-S1 posterior instrumented spinal fusion. She is s/p multiple washouts for infected hardware. hospitalization complicated when patient was noted to have left upper ext weakness and brain mri showed small post periventricular infarct. She is being followed by neurology and cardiology. Patient had a peg tube placed on 05/29/2020. Patient is pending hospice evaluation. Vital Signs Period Temp Pulse Resp BP Sys/Lepe Pulse Ox Last 24 Hr 98 F-98.4 F 67-78 18-18 114-130/57-64 95-100 GENERAL: awake, weak appearing, answers some questions appropriately HEAD: Normal with no signs of trauma. EYES: PERRL, legally blind both eyes sclera anicteric, conjunctiva clear. No ptosis. ENT: Ears normal, nares patent, oropharynx clear without exudates NECK: Trachea midline, full range of motion, supple. LUNGS: lungs diminished at the bases, no wheezes, rhonchi, or rales, good chest expansion, tolerating room air. SPINE: wound vac removed, retained black foam on spine, discussed with Dr gomez on 06/06/2020, surgeon to evaluate and attempt to remove at bedside. HEART: Regular rate and rhythm, no m/r/g, normal s1s2 ABDOMEN: Soft, nontender, nondistended, normoactive bowel sounds, no guarding EXTREMITIES: no edema. unstageable wound of right heel. left hand contracted, able to move right arm, but difficulty moving left arm. NEUROLOGICAL: Normal speech, gait not observed. PSYCH: calm, cooperative, normal mood SKIN: large back wound, vac removed. wet to dry dressings ordered. some retained vac foam deep inside wound to be removed by dr gomez Active Medications Generic Name Dose Route Start Last Admin Trade Name Freq PRN Reason Stop Dose Admin Acetaminophen 650 mg 05/16/20 20:58 06/05/20 23:14 Tylenol - PO 650 mg Q6H PRN Administration Fever Amino Acids 30 ml 05/20/20 01:07 06/07/20 10:10 Prosource No Carb Liquid Pkt PO 30 ml TIDAC JAYE Administration Amlodipine Besylate 10 mg 05/21/20 10:00 06/07/20 10:10 Norvasc - PO 10 mg DAILY AJYE Administration Ascorbic Acid 500 mg 05/16/20 22:00 06/07/20 10:10 Vitamin C - PO 500 mg BID JAYE Administration Aspirin 81 mg 06/06/20 10:00 06/07/20 10:10 Asa - GT 81 mg DAILY JAYE Administration Atorvastatin Calcium 40 mg 06/02/20 22:00 06/06/20 21:53 Lipitor - PEG 40 mg HS JAYE Administration Citalopram Hydrobromide 20 mg 05/16/20 22:00 06/06/20 21:53 Celexa - PO 20 mg HS JAYE Administration Diphenhydramine HCl 25 mg 05/27/20 16:58 05/28/20 09:04 Benadryl - PO 25 mg ONCE PRN Administration itching Diphenhydramine HCl 25 mg 05/28/20 08:52 05/31/20 22:24 Benadryl - PO 25 mg Q6H PRN Administration FOR ITCHING Docusate Sodium 100 mg 05/18/20 11:15 06/07/20 10:09 Colace Liquid - PO 100 mg BID JAYE Administration Metoprolol Succinate 25 mg 06/02/20 10:00 06/07/20 10:10 Toprol Xl - PO 25 mg DAILY JAYE Administration Mirtazapine 7.5 mg 05/16/20 22:00 06/06/20 21:53 Remeron - PO 7.5 mg HS JAYE Administration Multivitamins/Minerals 15 ml 05/17/20 10:00 06/07/20 10:10 Certavite-Antioxidant Liquid PO 15 ml DAILY JAYE Administration Nystatin 500,000 units 05/18/20 18:00 06/07/20 06:10 Nystatin Oral Suspension - PO 500,000 units Q6HPO JAYE Administration Ondansetron HCl 4 mg 05/16/20 20:58 Zofran Injection IVPUSH Q6H PRN NAUSEA AND/OR VOMITING Oxycodone HCl 5 mg 06/06/20 16:03 06/06/20 23:15 Roxicodone - PO 5 mg Q6H PRN Administration PAIN LEVEL 6-10 Pantoprazole Sodium 40 mg 05/17/20 07:00 06/07/20 06:10 Protonix Packets For Oral Suspension - PO 40 mg ACBK JAYE Administration Polyethylene Glycol 17 gm 05/16/20 20:58 Miralax (For Daily Use) - PO BID PRN CONSTIPATION Senna/Docusate Sodium 1 tablet 05/16/20 20:58 Pericolace - PO BID PRN CONSTIPATION ASSESSMENT/PLAN: Problem List - Problems (1) Encounter for tube feeding instruction Assessment/Plan: continue tube feeds: pivot 1.5mg 55cc hr with 45cc water flushes. also on dysphagia pureed nectar thick fluids. maintain aspiration precautions. Code(s): Z71.89 - OTHER SPECIFIED COUNSELING (2) DNI (do not intubate) Code(s): Z78.9 - OTHER SPECIFIED HEALTH STATUS (3) DNR (do not resuscitate) Code(s): Z66 - DO NOT RESUSCITATE (4) CVA (cerebral vascular accident) Assessment/Plan: recent infarct seen on brain mri 05/16/2020. on asa, statin therapy physical therapy following speech and swallow following neurology following Code(s): I63.9 - CEREBRAL INFARCTION, UNSPECIFIED (5) Severe sepsis Assessment/Plan: spinal stenosis. s/p removal of L3-L5 hardware, including L4-L5 intervertebral cage, L3-S1 laminectomy, L5-S1 PLIF, L3-S1 posterior instrumented spinal fusion. s/p multiple washouts now with wound vac was on daptomycin and meropenem per ID but now all antibiotics discontinued as GOC being discussed. patient s/p washout 05/12/2020 no further lab draws Code(s): A41.9 - SEPSIS, UNSPECIFIED ORGANISM; R65.20 - SEVERE SEPSIS WITHOUT SEPTIC SHOCK (6) Unstageable pressure ulcer of right heel Assessment/Plan: unstageable right heel pressure ulcer, purple in color, round. patient denies pain. plan to continue to: - elevate heels at all times. - add santyl daily - vascular evaluated, notes reviewed - monitor wound daily Code(s): L89.610 - PRESSURE ULCER OF RIGHT HEEL, UNSTAGEABLE (7) Poor appetite Assessment/Plan: peg tube placed 05/29/2020, on pivot 1.5 feeds Code(s): R63.0 - ANOREXIA (8) Toxic metabolic encephalopathy Assessment/Plan: mental status has improved patient noted to have an acute stroke per brain mri 05/16/2020, has left arm weakness Code(s): G92 - TOXIC ENCEPHALOPATHY (9) Status post spinal surgery Assessment/Plan: Wound culture from 04/23/2020 grew pseudomonas. was on daptomycin, but discontinued as family wants hospice and declined any further antibiotic treatment or blood draws. Code(s): Z98.890 - OTHER SPECIFIED POSTPROCEDURAL STATES (10) At risk for dehydration due to poor fluid intake Assessment/Plan: on tube feeds, pivot 1.5mg continuous with water flushes. Code(s): Z91.89 - OTH PERSONAL RISK FACTORS, NOT ELSEWHERE CLASSIFIED (11) Prophylactic measure Assessment/Plan: dietary following pt is a dnr/dni no further blood draws comfort care Code(s): Z29.9 - ENCOUNTER FOR PROPHYLACTIC MEASURES, UNSPECIFIED (12) Encounter for hospice care discussion Assessment/Plan: GOC discussed with family on 06/06/2020. See above note. Code(s): Z71.89 - OTHER SPECIFIED COUNSELING (13) Sponge retention Assessment/Plan: wound vac removed and patient has retained black foam from wound vac sponge on her back attached to her soft tissue. discussed with Dr. gomez on 06/06/2020 who will remove retained sponge at the bedside. Code(s): T81.509A - UNSP COMP OF FB ACC LEFT IN BODY FOL UNSP PROCEDURE, INIT (14) DVT prophylaxis Assessment/Plan: SCDs Code(s): Z29.9 - ENCOUNTER FOR PROPHYLACTIC MEASURES, UNSPECIFIED Visit type - Emergency Visit Emergency Visit: Yes ED Registration Date: 04/09/20 Care time: The patient presented to the Emergency Department on the above date and was hospitalized for further evaluation of their emergent condition. - New Patient This patient is new to me today: No - Critical Care Critical Care patient: No - Discharge Referral Referred to [facility] Med P.C[facility] No - Medication Review Med list reviewed for High Risk Meds patients 65 and older: Yes
--- NOTE | 2020-06-07 12:06 | PN ---
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 (short form) - Note 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: Chief Complaint: no CP/SOB/palps/dizzy Current Medications Generic Name Dose Route Start Last Admin Trade Name Freq PRN Reason Stop Dose Admin Acetaminophen 650 mg 05/16/20 20:58 06/05/20 23:14 Tylenol - PO 650 mg Q6H PRN Administration Fever Amino Acids 30 ml 05/20/20 01:07 06/07/20 10:10 Prosource No Carb Liquid Pkt PO 30 ml TIDAC JAYE Administration Amlodipine Besylate 10 mg 05/21/20 10:00 06/07/20 10:10 Norvasc - PO 10 mg DAILY JAYE Administration Ascorbic Acid 500 mg 05/16/20 22:00 06/07/20 10:10 Vitamin C - PO 500 mg BID JAYE Administration Aspirin 81 mg 06/06/20 10:00 06/07/20 10:10 Asa - GT 81 mg DAILY JAYE Administration Atorvastatin Calcium 40 mg 06/02/20 22:00 06/06/20 21:53 Lipitor - PEG 40 mg HS JAYE Administration Citalopram Hydrobromide 20 mg 05/16/20 22:00 06/06/20 21:53 Celexa - PO 20 mg HS JAYE Administration Diphenhydramine HCl 25 mg 05/27/20 16:58 05/28/20 09:04 Benadryl - PO 25 mg ONCE PRN Administration itching Diphenhydramine HCl 25 mg 05/28/20 08:52 05/31/20 22:24 Benadryl - PO 25 mg Q6H PRN Administration FOR ITCHING Docusate Sodium 100 mg 05/18/20 11:15 06/07/20 10:09 Colace Liquid - PO 100 mg BID JAYE Administration Metoprolol Succinate 25 mg 06/02/20 10:00 06/07/20 10:10 Toprol Xl - PO 25 mg DAILY JAYE Administration Mirtazapine 7.5 mg 05/16/20 22:00 06/06/20 21:53 Remeron - PO 7.5 mg HS JAYE Administration Multivitamins/Minerals 15 ml 05/17/20 10:00 06/07/20 10:10 Certavite-Antioxidant Liquid PO 15 ml DAILY JAYE Administration Nystatin 500,000 units 05/18/20 18:00 06/07/20 11:53 Nystatin Oral Suspension - PO 500,000 units Q6HPO JAYE Administration Ondansetron HCl 4 mg 05/16/20 20:58 Zofran Injection IVPUSH Q6H PRN NAUSEA AND/OR VOMITING Oxycodone HCl 5 mg 06/06/20 16:03 06/06/20 23:15 Roxicodone - PO 5 mg Q6H PRN Administration PAIN LEVEL 6-10 Pantoprazole Sodium 40 mg 05/17/20 07:00 06/07/20 06:10 Protonix Packets For Oral Suspension - PO 40 mg ACBK JAYE Administration Polyethylene Glycol 17 gm 05/16/20 20:58 Miralax (For Daily Use) - PO BID PRN CONSTIPATION Senna/Docusate Sodium 1 tablet 05/16/20 20:58 Pericolace - PO BID PRN CONSTIPATION Vital Signs Period Temp Pulse Resp BP Sys/Lepe Pulse Ox Last 24 Hr 98 F-98.4 F 67-78 18-18 114-130/57-64 95-100 Constitutional: Yes: No Distress Cardiovascular: Yes: Regular Rate and Rhythm Respiratory: Yes: CTA Bilaterally Gastrointestinal: Yes: Soft (nt) Edema: No Neurological: Yes: Other (left sided weakness) no jaundice diaphoresis awake alert Labs: CBC, BMP 06/01/20 11:26 06/05/20 08:00 - ....Imaging EKG: Image Reviewed Assessment/Plan DATA: echo 05/2020: nl lv/rv, mild as carotid: mild dz, no sig stenosis 80 f hx htn, hld, here for elective spine surgery, CVA, frequent PAT htn: -cont ccb, bb hld: -cont statin cva: -cont bp control -cont statin -on asa -echo and carotids unremarkable -neuro following svt: -cont bb
[2020-06-07] MEDS: ACETAMINOPHEN 325 MG TABLET (FP) PO PRN (15:25)
[2020-06-07] MEDS: oxyCODONE HCL 5 MG TABLET PO PRN ×2 (15:26→22:30)
[2020-06-07] MEDS: MIRTAZAPINE 15 MG TABLET (FP) PO SCH (22:25)
[2020-06-07] MEDS: CITALOPRAM HYDROBROMIDE 20 MG TABLET PO SCH (22:26)
[2020-06-07] MEDS: ATORVASTATIN CA 40 MG TABLET (FP) PEG SCH (22:26)
[2020-06-08] MEDS: NYSTATIN 500,000 UNITS/5 ML SUSPENSION PO SCH ×5 (00:02→18:47)
--- NOTE | 2020-06-08 06:07 | PN ---
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, Physician Chief Complaint: eyes closed alert denies cp, sob, palps - Current Medication List Current Medications: Active Medications Acetaminophen (Tylenol -) 650 mg PO Q6H PRN PRN Reason: Fever Last Admin: 06/07/20 15:25 Dose: 650 mg Documented by: Amino Acids (Prosource No Carb Liquid Pkt) 30 ml PO TIDAC [facility] Last Admin: 06/07/20 16:58 Dose: 30 ml Documented by: Amlodipine Besylate (Norvasc -) 10 mg PO DAILY [facility] Last Admin: 06/07/20 10:10 Dose: 10 mg Documented by: Ascorbic Acid (Vitamin C -) 500 mg PO BID [facility] Last Admin: 06/07/20 22:26 Dose: 500 mg Documented by: Aspirin (Asa -) 81 mg GT DAILY [facility] Last Admin: 06/07/20 10:10 Dose: 81 mg Documented by: Atorvastatin Calcium (Lipitor -) 40 mg PEG [facility] Last Admin: 06/07/20 22:26 Dose: 40 mg Documented by: Citalopram Hydrobromide (Celexa -) 20 mg PO [facility] Last Admin: 06/07/20 22:26 Dose: 20 mg Documented by: Diphenhydramine HCl (Benadryl -) 25 mg PO ONCE PRN PRN Reason: itching Last Admin: 05/28/20 09:04 Dose: 25 mg Documented by: Diphenhydramine HCl (Benadryl -) 25 mg PO Q6H PRN PRN Reason: FOR ITCHING Last Admin: 05/31/20 22:24 Dose: 25 mg Documented by: Docusate Sodium (Colace Liquid -) 100 mg PO BID [facility] Last Admin: 06/07/20 22:25 Dose: 100 mg Documented by: Metoprolol Succinate (Toprol Xl -) 25 mg PO DAILY [facility] Last Admin: 06/07/20 10:10 Dose: 25 mg Documented by: Mirtazapine (Remeron -) 7.5 mg PO [facility] Last Admin: 06/07/20 22:25 Dose: 7.5 mg Documented by: Multivitamins/Minerals (Certavite-Antioxidant Liquid) 15 ml PO DAILY [facility] Last Admin: 06/07/20 10:10 Dose: 15 ml Documented by: Nystatin (Nystatin Oral Suspension -) 500,000 units PO Q6HPO [facility] Last Admin: 06/08/20 00:02 Dose: 500,000 units Documented by: Ondansetron HCl (Zofran Injection) 4 mg IVPUSH Q6H PRN PRN Reason: NAUSEA AND/OR VOMITING Oxycodone HCl (Roxicodone -) 5 mg PO Q6H PRN PRN Reason: PAIN LEVEL 6-10 Last Admin: 06/07/20 22:30 Dose: 5 mg Documented by: Pantoprazole Sodium (Protonix Packets For Oral Suspension -) 40 mg PO ACBK [facility] Last Admin: 06/07/20 06:10 Dose: 40 mg Documented by: Polyethylene Glycol (Miralax (For Daily Use) -) 17 gm PO BID PRN PRN Reason: CONSTIPATION Senna/Docusate Sodium (Pericolace -) 1 tablet PO BID PRN PRN Reason: CONSTIPATION - Objective Vital Signs: Vital Signs Temperature 98.3 F 06/08/20 05:56 Pulse Rate 79 06/08/20 05:56 Respiratory Rate 18 06/08/20 05:56 Blood Pressure 141/63 06/08/20 05:56 O2 Sat by Pulse Oximetry (%) 95 06/07/20 22:00 Constitutional: Yes: No Distress, Calm Cardiovascular: Yes: Regular Rate and Rhythm Respiratory: Yes: CTA Bilaterally Gastrointestinal: Yes: Soft (nt) Edema: No Neurological: Yes: Alert Labs: CBC, BMP 06/01/20 11:26 06/05/20 08:00 INR, PTT INR 1.14 (0.83-1.09) H 05/28/20 11:20 Assessment/Plan Assessment/Plan DATA: echo 05/2020: nl lv/rv, mild as carotid: mild dz, no sig stenosis 80 f hx htn, hld, here for elective spine surgery, CVA, frequent PAT htn: -cont ccb, bb hld: -cont statin cva: -cont bp control -cont statin -on asa -echo and carotids unremarkable -neuro following svt: -cont bb
[2020-06-08] MEDS: AMINO ACIDS/PROTEIN HYDROLYS 30 ML LIQUID.PKT PO SCH ×3 (06:37→15:52)
[2020-06-08] MEDS: PANTOPRAZOLE SOD 40 MG SUSPENSION PACKET PO SCH (06:37)
[2020-06-08] MEDS ORDERED: PT OWN MED DRAWER 7, Y5N ONE ×2 (09:44→18:44)
[2020-06-08] MEDS: ACETAMINOPHEN 325 MG TABLET (FP) PO PRN (09:47)
[2020-06-08] MEDS: amLODIPine BESYLATE 10 MG TABLET (FP) PO SCH (09:49)
[2020-06-08] MEDS: metoPROLOL SUCCINATE 25 MG TAB.SR.24H (FP) PO SCH (09:49)
[2020-06-08] MEDS: ASPIRIN 81 MG CHEWABLE TABLETS GT SCH (09:49)
[2020-06-08] MEDS: MULTIVIT-MINERALS ORAL LIQUID PO SCH (09:49)
[2020-06-08] MEDS: DOCUSATE NA 100 MG/10 ML UNIT-DOSE CUPS PO SCH ×2 (09:49→21:20)
[2020-06-08] MEDS: ASCORBIC ACID 500 MG TABLET (FP) PO SCH ×2 (09:49→21:19)
--- NOTE | 2020-06-08 12:27 | PN ---
Physical Exam: SUBJECTIVE: Patient seen and examined at the bedside. No overnight events. comfortable at rest. OBJECTIVE: from my prior note: [facility] on at 4:10pm on 06/06/2020. Attendees: ROSEY Stewart, Isis Reinoso RN, Palliative care, Monika (patient primary RN for the day), Glen Chinmay (Patient's son) and Renea (patient's niece) and myself. Purpose of meeting was to discuss GOC going forward: Per family, they want to abide by Makenna's wishes and focus on comfort. They are declining any further surgeries and would like patient on hospice care. They would like to continue the peg tube feeds at home. They decline further antibiotics or further blood draws son signed a DNR/DNI and I entered it on [employer] Renea was taught the extensive care that Mrs Moy would need by primary RN Monika (wound care, turn and position, feeds, aspiration precautions, skin care, avila care, etc). Family states that they will be with Mrs Moy around the clock and will have help with an aide emotional support provided ------ Patient is a 80 year old female with a history of hypertension, dementia, depression, spinal stenosis, neuropathy she is s/p removal of L3-L5 hardware, including L4-L5 intervertebral cage, L3-S1 laminectomy, L5-S1 PLIF, L3-S1 posterior instrumented spinal fusion. She is s/p multiple washouts for infected hardware. hospitalization complicated when patient was noted to have left upper ext weakness and brain mri showed small post periventricular infarct. She is being followed by neurology and cardiology. Patient had a peg tube placed on 05/29/2020. Patient is pending hospice evaluation. Period Temp Pulse Resp BP Sys/Lepe Pulse Ox Last 24 Hr 97.6 F-98.3 F 75-82 18-20 123-141/60-64 95-98 GENERAL: awake, weak appearing, answers some questions appropriately HEAD: Normal with no signs of trauma. EYES: PERRL, legally blind both eyes sclera anicteric, conjunctiva clear. No ptosis. ENT: Ears normal, nares patent, oropharynx clear without exudates NECK: Trachea midline, full range of motion, supple. LUNGS: lungs diminished at the bases, no wheezes, rhonchi, or rales, good chest expansion, tolerating room air. SPINE: wound vac removed, retained black foam on spine, discussed with Dr gomez on 06/06/2020, surgeon to evaluate and attempt to remove at bedside. HEART: Regular rate and rhythm, no m/r/g, normal s1s2 ABDOMEN: Soft, nontender, nondistended, normoactive bowel sounds, no guarding EXTREMITIES: no edema. unstageable wound of right heel. left hand contracted, able to move right arm, but difficulty moving left arm. NEUROLOGICAL: Normal speech, gait not observed. PSYCH: calm, cooperative, normal mood SKIN: large back wound, vac removed. wet to dry dressings ordered. some retained vac foam deep inside wound to be removed by dr gomez, he is aware and informed me he will do at bedside Laboratory Results - last 24 hr 06/07/20 12:09 COVID-19 (ESTER) Not detected Active Medications Generic Name Dose Route Start Last Admin Trade Name Freq PRN Reason Stop Dose Admin Acetaminophen 650 mg 05/16/20 20:58 06/08/20 09:47 Tylenol - PO 650 mg Q6H PRN Administration Fever Amino Acids 30 ml 05/20/20 01:07 06/08/20 06:37 Prosource No Carb Liquid Pkt PO 30 ml TIDAC JAYE Administration Amlodipine Besylate 10 mg 05/21/20 10:00 06/08/20 09:49 Norvasc - PO 10 mg DAILY JAYE Administration Ascorbic Acid 500 mg 05/16/20 22:00 06/08/20 09:49 Vitamin C - PO 500 mg BID JAYE Administration Aspirin 81 mg 06/06/20 10:00 06/08/20 09:49 Asa - GT 81 mg DAILY JAYE Administration Atorvastatin Calcium 40 mg 06/02/20 22:00 06/07/20 22:26 Lipitor - PEG 40 mg HS JAYE Administration Citalopram Hydrobromide 20 mg 05/16/20 22:00 06/07/20 22:26 Celexa - PO 20 mg HS JAYE Administration Diphenhydramine HCl 25 mg 05/27/20 16:58 05/28/20 09:04 Benadryl - PO 25 mg ONCE PRN Administration itching Diphenhydramine HCl 25 mg 05/28/20 08:52 05/31/20 22:24 Benadryl - PO 25 mg Q6H PRN Administration FOR ITCHING Docusate Sodium 100 mg 05/18/20 11:15 06/08/20 09:49 Colace Liquid - PO 100 mg BID JAYE Administration Metoprolol Succinate 25 mg 06/02/20 10:00 06/08/20 09:49 Toprol Xl - PO 25 mg DAILY JAYE Administration Mirtazapine 7.5 mg 05/16/20 22:00 06/07/20 22:25 Remeron - PO 7.5 mg HS JAYE Administration Multivitamins/Minerals 15 ml 05/17/20 10:00 06/08/20 09:49 Certavite-Antioxidant Liquid PO 15 ml DAILY JAYE Administration Nystatin 500,000 units 05/18/20 18:00 06/08/20 06:37 Nystatin Oral Suspension - PO 500,000 units Q6HPO JAYE Administration Ondansetron HCl 4 mg 05/16/20 20:58 Zofran Injection IVPUSH Q6H PRN NAUSEA AND/OR VOMITING Oxycodone HCl 5 mg 06/06/20 16:03 06/07/20 22:30 Roxicodone - PO 5 mg Q6H PRN Administration PAIN LEVEL 6-10 Pantoprazole Sodium 40 mg 05/17/20 07:00 06/08/20 06:37 Protonix Packets For Oral Suspension - PO 40 mg ACBK JAYE Administration Polyethylene Glycol 17 gm 05/16/20 20:58 Miralax (For Daily Use) - PO BID PRN CONSTIPATION Senna/Docusate Sodium 1 tablet 05/16/20 20:58 Pericolace - PO BID PRN CONSTIPATION ASSESSMENT/PLAN: Problem List - Problems (1) Encounter for tube feeding instruction Assessment/Plan: continue tube feeds: pivot 1.5mg 55cc hr with 45cc water flushes. also on dysphagia pureed nectar thick fluids. maintain aspiration precautions. Code(s): Z71.89 - OTHER SPECIFIED COUNSELING (2) DNI (do not intubate) Assessment/Plan: per molst form Code(s): Z78.9 - OTHER SPECIFIED HEALTH STATUS (3) DNR (do not resuscitate) Assessment/Plan: per molst form Code(s): Z66 - DO NOT RESUSCITATE (4) CVA (cerebral vascular accident) Assessment/Plan: recent infarct seen on brain mri 05/16/2020. on asa, statin therapy physical therapy following speech and swallow following neurology following Code(s): I63.9 - CEREBRAL INFARCTION, UNSPECIFIED (5) Severe sepsis Assessment/Plan: spinal stenosis. s/p removal of L3-L5 hardware, including L4-L5 intervertebral cage, L3-S1 laminectomy, L5-S1 PLIF, L3-S1 posterior instrumented spinal fusion. s/p multiple washouts now with wound vac was on daptomycin and meropenem per ID but now all antibiotics discontinued as goals is home hospice and end of life care patient s/p washout 05/12/2020 no further lab draws Code(s): A41.9 - SEPSIS, UNSPECIFIED ORGANISM; R65.20 - SEVERE SEPSIS WITHOUT SEPTIC SHOCK (6) Unstageable pressure ulcer of right heel Assessment/Plan: unstageable right heel pressure ulcer, purple in color, round. patient denies pain. plan to continue to: - elevate heels at all times. - add santyl daily - vascular evaluated, notes reviewed - monitor wound daily Code(s): L89.610 - PRESSURE ULCER OF RIGHT HEEL, UNSTAGEABLE (7) Poor appetite Assessment/Plan: peg tube placed 05/29/2020, on pivot 1.5 feeds Code(s): R63.0 - ANOREXIA (8) Toxic metabolic encephalopathy Assessment/Plan: mental status has improved patient noted to have an acute stroke per brain mri 05/16/2020, has left arm weakness Code(s): G92 - TOXIC ENCEPHALOPATHY (9) Status post spinal surgery Assessment/Plan: Wound culture from 04/23/2020 grew pseudomonas. was on daptomycin, but discontin ued as family wants hospice and declined any further antibiotic treatment or blood draws. Code(s): Z98.890 - OTHER SPECIFIED POSTPROCEDURAL STATES (10) At risk for dehydration due to poor fluid intake Assessment/Plan: on tube feeds, pivot 1.5mg continuous with water flushes. Code(s): Z91.89 - OTH PERSONAL RISK FACTORS, NOT ELSEWHERE CLASSIFIED (11) Prophylactic measure Assessment/Plan: dietary following pt is a dnr/dni no further blood draws comfort care Code(s): Z29.9 - ENCOUNTER FOR PROPHYLACTIC MEASURES, UNSPECIFIED (12) Encounter for hospice care discussion Assessment/Plan: GOC discussed with family on 06/06/2020. See above note. Code(s): Z71.89 - OTHER SPECIFIED COUNSELING (13) Sponge retention Assessment/Plan: wound vac removed and patient has retained black foam from wound vac sponge on her back attached to her soft tissue. discussed with Dr. gomez on 06/06/2020 who will remove retained sponge at the bedside. Code(s): T81.509A - UNSP COMP OF FB ACC LEFT IN BODY FOL UNSP PROCEDURE, INIT (14) DVT prophylaxis Assessment/Plan: SCDs Code(s): Z29.9 - ENCOUNTER FOR PROPHYLACTIC MEASURES, UNSPECIFIED Visit type - Emergency Visit Emergency Visit: Yes ED Registration Date: 04/09/20 Care time: The patient presented to the Emergency Department on the above date and was hospitalized for further evaluation of their emergent condition. - New Patient This patient is new to me today: No - Critical Care Critical Care patient: No - Discharge Referral Referred to [facility] Med P.C.: No - Medication Review Med list reviewed for High Risk Meds patients 65 and older: Yes
[2020-06-08] MEDS: oxyCODONE HCL 5 MG TABLET PO PRN (15:52)
--- NOTE | 2020-06-08 18:51 | PN ---
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 (short form) - Note 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: Patient better from a general medical viewpoint Feeding via a peg tube has resulted in this improvement. hemiplegia seems unchanged Mental status Orientated for person and place Wants to go home Wound remains open with some wound vac sponge in situ. Unfit for general anesthesia but this may be necesarry to effectively manage the wound. Will attempt a bedside removal of the wound tomorrow In the meantime to continue wet to dry dressings.
[2020-06-08] MEDS: ATORVASTATIN CA 40 MG TABLET (FP) PEG SCH (21:19)
[2020-06-08] MEDS: MIRTAZAPINE 15 MG TABLET (FP) PO SCH (21:20)
[2020-06-08] MEDS: CITALOPRAM HYDROBROMIDE 20 MG TABLET PO SCH (21:20)
[2020-06-09] MEDS: PANTOPRAZOLE SOD 40 MG SUSPENSION PACKET PO SCH (06:39)
[2020-06-09] MEDS: AMINO ACIDS/PROTEIN HYDROLYS 30 ML LIQUID.PKT PO SCH ×3 (06:39→16:28)
[2020-06-09] MEDS: NYSTATIN 500,000 UNITS/5 ML SUSPENSION PO SCH ×3 (06:39→17:43)
[2020-06-09] MEDS ORDERED: PT OWN MED DRAWER 7, Y5N ONE (10:39)
[2020-06-09] MEDS: DOCUSATE NA 100 MG/10 ML UNIT-DOSE CUPS PO SCH ×2 (10:59→22:25)
[2020-06-09] MEDS: MULTIVIT-MINERALS ORAL LIQUID PO SCH (10:59)
[2020-06-09] MEDS: metoPROLOL SUCCINATE 25 MG TAB.SR.24H (FP) PO SCH (11:00)
[2020-06-09] MEDS: ASPIRIN 81 MG CHEWABLE TABLETS GT SCH (11:00)
[2020-06-09] MEDS: ASCORBIC ACID 500 MG TABLET (FP) PO SCH ×2 (11:00→22:26)
[2020-06-09] MEDS: amLODIPine BESYLATE 10 MG TABLET (FP) PO SCH (11:00)
--- NOTE | 2020-06-09 11:02 | PN ---
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 (short form) - Note 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: Chief Complaint: no CP/SOB/palps/dizzy Current Medications Generic Name Dose Route Start Last Admin Trade Name Freq PRN Reason Stop Dose Admin Acetaminophen 650 mg 05/16/20 20:58 06/08/20 09:47 Tylenol - PO 650 mg Q6H PRN Administration Fever Amino Acids 30 ml 05/20/20 01:07 06/09/20 10:59 Prosource No Carb Liquid Pkt PO 30 ml TIDAC JAYE Administration Amlodipine Besylate 10 mg 05/21/20 10:00 06/09/20 11:00 Norvasc - PO 10 mg DAILY JAYE Administration Ascorbic Acid 500 mg 05/16/20 22:00 06/09/20 11:00 Vitamin C - PO 500 mg BID JAYE Administration Aspirin 81 mg 06/06/20 10:00 06/09/20 11:00 Asa - GT 81 mg DAILY JAEY Administration Atorvastatin Calcium 40 mg 06/02/20 22:00 06/08/20 21:19 Lipitor - PEG 40 mg HS JAYE Administration Citalopram Hydrobromide 20 mg 05/16/20 22:00 06/08/20 21:20 Celexa - PO 20 mg HS JAYE Administration Diphenhydramine HCl 25 mg 05/27/20 16:58 05/28/20 09:04 Benadryl - PO 25 mg ONCE PRN Administration itching Diphenhydramine HCl 25 mg 05/28/20 08:52 05/31/20 22:24 Benadryl - PO 25 mg Q6H PRN Administration FOR ITCHING Docusate Sodium 100 mg 05/18/20 11:15 06/09/20 10:59 Colace Liquid - PO 100 mg BID JAYE Administration Metoprolol Succinate 25 mg 06/02/20 10:00 06/09/20 11:00 Toprol Xl - PO 25 mg DAILY JAYE Administration Mirtazapine 7.5 mg 05/16/20 22:00 06/08/20 21:20 Remeron - PO 7.5 mg HS JAYE Administration Multivitamins/Minerals 15 ml 05/17/20 10:00 06/09/20 10:59 Certavite-Antioxidant Liquid PO 15 ml DAILY JAYE Administration Nystatin 500,000 units 05/18/20 18:00 06/09/20 06:39 Nystatin Oral Suspension - PO 500,000 units Q6HPO JAYE Administration Ondansetron HCl 4 mg 05/16/20 20:58 Zofran Injection IVPUSH Q6H PRN NAUSEA AND/OR VOMITING Oxycodone HCl 5 mg 06/06/20 16:03 06/08/20 15:52 Roxicodone - PO 5 mg Q6H PRN Administration PAIN LEVEL 6-10 Pantoprazole Sodium 40 mg 05/17/20 07:00 06/09/20 06:39 Protonix Packets For Oral Suspension - PO 40 mg ACBK JAYE Administration Polyethylene Glycol 17 gm 05/16/20 20:58 Miralax (For Daily Use) - PO BID PRN CONSTIPATION Senna/Docusate Sodium 1 tablet 05/16/20 20:58 Pericolace - PO BID PRN CONSTIPATION Vital Signs Period Temp Pulse Resp BP Sys/Lepe Pulse Ox Last 24 Hr 97.6 F-98.9 F 76-87 17-20 125-140/55-65 95-98 Constitutional: Yes: No Distress Cardiovascular: Yes: Regular Rate and Rhythm Respiratory: Yes: CTA Bilaterally Gastrointestinal: Yes: Soft (nt) Edema: No Neurological: Yes: Other (left sided weakness) no jaundice diaphoresis awake alert Labs: CBC, BMP 06/01/20 11:26 06/05/20 08:00 - ....Imaging EKG: Image Reviewed Assessment/Plan DATA: echo 05/2020: nl lv/rv, mild as carotid: mild dz, no sig stenosis 80 f hx htn, hld, here for elective spine surgery, CVA, frequent PAT htn: -cont ccb, bb hld: -cont statin cva: -cont bp control -cont statin -on asa -echo and carotids unremarkable -neuro following svt: -cont bb
--- NOTE | 2020-06-09 11:27 | PN ---
Physical Exam: SUBJECTIVE: Patient seen and examined, NAD-tolerating feedings pt denies pain, sob, chest pain plan for Home Hospice OBJECTIVE: Vital Signs Period Temp Pulse Resp BP Sys/Lepe Pulse Ox Last 24 Hr 98.1 F-98.9 F 77-87 17-20 125-140/55-65 95-98 GENERAL: The patient is awake, alert, and fully oriented, in no acute distress. HEAD: Normal with no signs of trauma. EYES: PERRL, extraocular movements intact, sclera anicteric, conjunctiva clear. No ptosis. ENT: Ears normal, nares patent, oropharynx clear without exudates, moist mucous membranes. NECK: Trachea midline, full range of motion, supple. LUNGS: Breath sounds equal, clear to auscultation bilaterally, no wheezes, no crackles, no accessory muscle use. HEART: Regular rate and rhythm, S1, S2 without murmur, rub or gallop. ABDOMEN: Soft, nontender, nondistended, normoactive bowel sounds, no guarding, no rebound, no hepatosplenomegaly, no masses. EXTREMITIES: 2+ pulses, warm, well-perfused, no edema. NEUROLOGICAL: Cranial nerves II through XII grossly intact. Normal speech, gait not observed. PSYCH: Normal mood, normal affect. SKIN: Warm, dry, normal turgor, no rashes or lesions noted Active Medications Generic Name Dose Route Start Last Admin Trade Name Freq PRN Reason Stop Dose Admin Acetaminophen 650 mg 05/16/20 20:58 06/08/20 09:47 Tylenol - PO 650 mg Q6H PRN Administration Fever Amino Acids 30 ml 05/20/20 01:07 06/09/20 10:59 Prosource No Carb Liquid Pkt PO 30 ml TIDAC JAYE Administration Amlodipine Besylate 10 mg 05/21/20 10:00 06/09/20 11:00 Norvasc - PO 10 mg DAILY JAYE Administration Ascorbic Acid 500 mg 05/16/20 22:00 06/09/20 11:00 Vitamin C - PO 500 mg BID JAYE Administration Aspirin 81 mg 06/06/20 10:00 06/09/20 11:00 Asa - GT 81 mg DAILY JYAE Administration Atorvastatin Calcium 40 mg 06/02/20 22:00 06/08/20 21:19 Lipitor - PEG 40 mg HS JAYE Administration Citalopram Hydrobromide 20 mg 05/16/20 22:00 06/08/20 21:20 Celexa - PO 20 mg HS JAYE Administration Diphenhydramine HCl 25 mg 05/27/20 16:58 05/28/20 09:04 Benadryl - PO 25 mg ONCE PRN Administration itching Diphenhydramine HCl 25 mg 05/28/20 08:52 05/31/20 22:24 Benadryl - PO 25 mg Q6H PRN Administration FOR ITCHING Docusate Sodium 100 mg 05/18/20 11:15 06/09/20 10:59 Colace Liquid - PO 100 mg BID JAYE Administration Metoprolol Succinate 25 mg 06/02/20 10:00 06/09/20 11:00 Toprol Xl - PO 25 mg DAILY JAYE Administration Mirtazapine 7.5 mg 05/16/20 22:00 06/08/20 21:20 Remeron - PO 7.5 mg HS JAYE Administration Multivitamins/Minerals 15 ml 05/17/20 10:00 06/09/20 10:59 Certavite-Antioxidant Liquid PO 15 ml DAILY JAYE Administration Nystatin 500,000 units 05/18/20 18:00 06/09/20 06:39 Nystatin Oral Suspension - PO 500,000 units Q6HPO JAYE Administration Ondansetron HCl 4 mg 05/16/20 20:58 Zofran Injection IVPUSH Q6H PRN NAUSEA AND/OR VOMITING Oxycodone HCl 5 mg 06/06/20 16:03 06/08/20 15:52 Roxicodone - PO 5 mg Q6H PRN Administration PAIN LEVEL 6-10 Pantoprazole Sodium 40 mg 05/17/20 07:00 06/09/20 06:39 Protonix Packets For Oral Suspension - PO 40 mg ACBK JAYE Administration Polyethylene Glycol 17 gm 05/16/20 20:58 Miralax (For Daily Use) - PO BID PRN CONSTIPATION Senna/Docusate Sodium 1 tablet 05/16/20 20:58 Pericolace - PO BID PRN CONSTIPATION ASSESSMENT/PLAN: Problem List - Problems (1) Encounter for tube feeding instruction Assessment/Plan: continue tube feeds: pivot 1.5mg 55cc hr with 45cc water flushes. also on dysphagia pureed nectar thick fluids. maintain aspiration precautions. Code(s): Z71.89 - OTHER SPECIFIED COUNSELING (2) DNI (do not intubate) Assessment/Plan: per molst form Code(s): Z78.9 - OTHER SPECIFIED HEALTH STATUS (3) DNR (do not resuscitate) Assessment/Plan: per molst form Code(s): Z66 - DO NOT RESUSCITATE (4) CVA (cerebral vascular accident) Assessment/Plan: recent infarct seen on brain mri 05/16/2020. on asa, statin therapy physical therapy following speech and swallow following neurology following Code(s): I63.9 - CEREBRAL INFARCTION, UNSPECIFIED (5) Severe sepsis Assessment/Plan: spinal stenosis. s/p removal of L3-L5 hardware, including L4-L5 intervertebral cage, L3-S1 laminectomy, L5-S1 PLIF, L3-S1 posterior instrumented spinal fusion. s/p multiple washouts now with wound vac was on daptomycin and meropenem per ID but now all antibiotics discontinued as goals is home hospice and end of life care patient s/p washout 05/12/2020 no further lab draws Code(s): A41.9 - SEPSIS, UNSPECIFIED ORGANISM; R65.20 - SEVERE SEPSIS WITHOUT SEPTIC SHOCK (6) Unstageable pressure ulcer of right heel Assessment/Plan: unstageable right heel pressure ulcer, purple in color, round. patient denies pain. plan to continue to: - elevate heels at all times. - add santyl daily - vascular evaluated, notes reviewed - monitor wound daily Code(s): L89.610 - PRESSURE ULCER OF RIGHT HEEL, UNSTAGEABLE (7) Poor appetite Assessment/Plan: peg tube placed 05/29/2020, on pivot 1.5 feeds Code(s): R63.0 - ANOREXIA (8) Toxic metabolic encephalopathy Assessment/Plan: mental status has improved patient noted to have an acute stroke per brain mri 05/16/2020, has left arm weakness Code(s): G92 - TOXIC ENCEPHALOPATHY (9) Status post spinal surgery Assessment/Plan: Wound culture from 04/23/2020 grew pseudomonas. was on daptomycin, but discontinued as family wants hospice and declined any further antibiotic treatment or blood draws. Code(s): Z98.890 - OTHER SPECIFIED POSTPROCEDURAL STATES (10) At risk for dehydration due to poor fluid intake Assessment/Plan: on tube feeds, pivot 1.5mg continuous with water flushes. Code(s): Z91.89 - OTH PERSONAL RISK FACTORS, NOT ELSEWHERE CLASSIFIED (11) Prophylactic measure Assessment/Plan: dietary following pt is a dnr/dni no further blood draws comfort care Code(s): Z29.9 - ENCOUNTER FOR PROPHYLACTIC MEASURES, UNSPECIFIED (12) Encounter for hospice care discussion Assessment/Plan: GOC discussed with family on 06/06/2020. See above note. Code(s): Z71.89 - OTHER SPECIFIED COUNSELING (13) Sponge retention Assessment/Plan: wound vac removed and patient has retained black foam from wound vac sponge on her back attached to her soft tissue. discussed with Dr. gomez on 06/06/2020 who will remove retained sponge at the bedside. Code(s): T81.509A - UNSP COMP OF FB ACC LEFT IN BODY FOL UNSP PROCEDURE, INIT (14) DVT prophylaxis Assessment/Plan: SCDs Code(s): Z29.9 - ENCOUNTER FOR PROPHYLACTIC MEASURES, UNSPECIFIED Visit type - Emergency Visit Emergency Visit: Yes ED Registration Date: 04/09/20 Care time: The patient presented to the Emergency Department on the above date and was hospitalized for further evaluation of their emergent condition. - New Patient This patient is new to me today: Yes Date on this admission: 06/09/20 - Critical Care Critical Care patient: No - Medication Review Med list reviewed for High Risk Meds patients 65 and older: No
[2020-06-09] MEDS: oxyCODONE HCL 5 MG TABLET PO PRN (16:28)
[2020-06-09] MEDS: ACETAMINOPHEN 325 MG TABLET (FP) PO PRN (16:29)
[2020-06-09] MEDS: MIRTAZAPINE 15 MG TABLET (FP) PO SCH (22:25)
[2020-06-09] MEDS: ATORVASTATIN CA 40 MG TABLET (FP) PEG SCH (22:25)
[2020-06-09] MEDS: CITALOPRAM HYDROBROMIDE 20 MG TABLET PO SCH (22:26)
[2020-06-10] MEDS: NYSTATIN 500,000 UNITS/5 ML SUSPENSION PO SCH ×4 (00:15→17:42)
[2020-06-10] MEDS: PANTOPRAZOLE SOD 40 MG SUSPENSION PACKET PO SCH (06:33)
[2020-06-10] MEDS: AMINO ACIDS/PROTEIN HYDROLYS 30 ML LIQUID.PKT PO SCH ×3 (06:33→17:06)
--- NOTE | 2020-06-10 10:20 | PN ---
Physical Exam: SUBJECTIVE: Patient seen and examined no complaints, OBJECTIVE: Vital Signs Period Temp Pulse Resp BP Sys/Lepe Pulse Ox Last 24 Hr 97.8 F-98.6 F 75-83 16-20 125-140/56-69 96-98 GENERAL: The patient is awake, alert, and fully oriented, in no acute distress. HEAD: Normal with no signs of trauma. EYES: PERRL, extraocular movements intact, sclera anicteric, conjunctiva clear. No ptosis. ENT: Ears normal, nares patent, oropharynx clear without exudates, moist mucous membranes. NECK: Trachea midline, full range of motion, supple. LUNGS: Breath sounds equal, clear to auscultation bilaterally, no wheezes, no crackles, no accessory muscle use. HEART: Regular rate and rhythm, S1, S2 without murmur, rub or gallop. ABDOMEN: Soft, nontender, nondistended, normoactive bowel sounds, no guarding, no rebound, no hepatosplenomegaly, no masses. EXTREMITIES: 2+ pulses, warm, well-perfused, no edema. NEUROLOGICAL: Cranial nerves II through XII grossly intact. Normal speech, gait not observed. PSYCH: Normal mood, normal affect. SKIN: Warm, dry, normal turgor, no rashes or lesions noted Active Medications Generic Name Dose Route Start Last Admin Trade Name Freq PRN Reason Stop Dose Admin Acetaminophen 650 mg 05/16/20 20:58 06/09/20 16:29 Tylenol - PO 650 mg Q6H PRN Administration Fever Amino Acids 30 ml 05/20/20 01:07 06/10/20 06:33 Prosource No Carb Liquid Pkt PO 30 ml TIDAC JAYE Administration Amlodipine Besylate 10 mg 05/21/20 10:00 06/09/20 11:00 Norvasc - PO 10 mg DAILY JAYE Administration Ascorbic Acid 500 mg 05/16/20 22:00 06/09/20 22:26 Vitamin C - PO 500 mg BID JAYE Administration Aspirin 81 mg 06/06/20 10:00 06/09/20 11:00 Asa - GT 81 mg DAILY JAYE Administration Atorvastatin Calcium 40 mg 06/02/20 22:00 06/09/20 22:25 Lipitor - PEG 40 mg HS JAYE Administration Citalopram Hydrobromide 20 mg 05/16/20 22:00 06/09/20 22:26 Celexa - PO 20 mg HS JAYE Administration Diphenhydramine HCl 25 mg 05/27/20 16:58 05/28/20 09:04 Benadryl - PO 25 mg ONCE PRN Administration itching Diphenhydramine HCl 25 mg 05/28/20 08:52 05/31/20 22:24 Benadryl - PO 25 mg Q6H PRN Administration FOR ITCHING Docusate Sodium 100 mg 05/18/20 11:15 06/09/20 22:25 Colace Liquid - PO 100 mg BID JAYE Administration Metoprolol Succinate 25 mg 06/02/20 10:00 06/09/20 11:00 Toprol Xl - PO 25 mg DAILY JAYE Administration Mirtazapine 7.5 mg 05/16/20 22:00 06/09/20 22:25 Remeron - PO 7.5 mg HS JAYE Administration Multivitamins/Minerals 15 ml 05/17/20 10:00 06/09/20 10:59 Certavite-Antioxidant Liquid PO 15 ml DAILY JAYE Administration Nystatin 500,000 units 05/18/20 18:00 06/10/20 06:33 Nystatin Oral Suspension - PO 500,000 units Q6HPO JAYE Administration Ondansetron HCl 4 mg 05/16/20 20:58 Zofran Injection IVPUSH Q6H PRN NAUSEA AND/OR VOMITING Oxycodone HCl 5 mg 06/06/20 16:03 06/09/20 16:28 Roxicodone - PO 5 mg Q6H PRN Administration PAIN LEVEL 6-10 Pantoprazole Sodium 40 mg 05/17/20 07:00 06/10/20 06:33 Protonix Packets For Oral Suspension - PO 40 mg ACBK JAYE Administration Polyethylene Glycol 17 gm 05/16/20 20:58 Miralax (For Daily Use) - PO BID PRN CONSTIPATION Senna/Docusate Sodium 1 tablet 05/16/20 20:58 Pericolace - PO BID PRN CONSTIPATION ASSESSMENT/PLAN: Patient is a 80 year old female with a history of hypertension, dementia, depression, spinal stenosis, neuropathy she is s/p removal of L3-L5 hardware, including L4-L5 intervertebral cage, L3-S1 laminectomy, L5-S1 PLIF, L3-S1 posterior instrumented spinal fusion. She is s/p multiple washouts for infected hardware. hospitalization complicated when patient was noted to have left upper ext weakness and brain mri showed small post periventricular infarct. She is being followed by neurology and cardiology. Patient had a peg tube placed on 05/29/2020. Patient is pending hospice evaluation. Problem List - Problems (1) Encounter for tube feeding instruction Assessment/Plan: continue tube feeds: pivot 1.5mg 55cc hr with 45cc water flushes. also on dysphagia pureed nectar thick fluids. maintain aspiration precautions. Code(s): Z71.89 - OTHER SPECIFIED COUNSELING (2) DNI (do not intubate) Assessment/Plan: per molst form Code(s): Z78.9 - OTHER SPECIFIED HEALTH STATUS (3) DNR (do not resuscitate) Assessment/Plan: per molst form Code(s): Z66 - DO NOT RESUSCITATE (4) CVA (cerebral vascular accident) Assessment/Plan: recent infarct seen on brain mri 05/16/2020. on asa, statin therapy physical therapy following speech and swallow following neurology following Code(s): I63.9 - CEREBRAL INFARCTION, UNSPECIFIED (5) Severe sepsis Assessment/Plan: spinal stenosis. s/p removal of L3-L5 hardware, including L4-L5 intervertebral cage, L3-S1 laminectomy, L5-S1 PLIF, L3-S1 posterior instrumented spinal fusion. s/p multiple washouts now with wound vac was on daptomycin and meropenem per ID but now all antibiotics discontinued as goals is home hospice and end of life care patient s/p washout 05/12/2020 no further lab draws Code(s): A41.9 - SEPSIS, UNSPECIFIED ORGANISM; R65.20 - SEVERE SEPSIS WITHOUT SEPTIC SHOCK (6) Unstageable pressure ulcer of right heel Assessment/Plan: unstageable right heel pressure ulcer, purple in color, round. patient denies pain. plan to continue to: - elevate heels at all times. - add santyl daily - vascular evaluated, notes reviewed - monitor wound daily Code(s): L89.610 - PRESSURE ULCER OF RIGHT HEEL, UNSTAGEABLE (7) Poor appetite Assessment/Plan: peg tube placed 05/29/2020, on pivot 1.5 feeds Code(s): R63.0 - ANOREXIA (8) Toxic metabolic encephalopathy Assessment/Plan: mental status has improved patient noted to have an acute stroke per brain mri 05/16/2020, has left arm weakness Code(s): G92 - TOXIC ENCEPHALOPATHY (9) Status post spinal surgery Assessment/Plan: Wound culture from 04/23/2020 grew pseudomonas. was on daptomycin, but discontinued as family wants hospice and declined any further antibiotic treatment or blood draws. Code(s): Z98.890 - OTHER SPECIFIED POSTPROCEDURAL STATES (10) At risk for dehydration due to poor fluid intake Assessment/Plan: on tube feeds, pivot 1.5mg continuous with water flushes. Code(s): Z91.89 - OTH PERSONAL RISK FACTORS, NOT ELSEWHERE CLASSIFIED (11) Prophylactic measure Assessment/Plan: dietary following pt is a dnr/dni no further blood draws comfort care Code(s): Z29.9 - ENCOUNTER FOR PROPHYLACTIC MEASURES, UNSPECIFIED (12) Encounter for hospice care discussion Assessment/Plan: GOC discussed with family on 06/06/2020. See above note. Code(s): Z71.89 - OTHER SPECIFIED COUNSELING (13) Sponge retention Assessment/Plan: wound vac removed and patient has retained black foam from wound vac sponge on her back attached to her soft tissue. discussed with Dr. gomez on 06/06/2020 who will remove retained sponge at the bedside. Code(s): T81.509A - UNSP COMP OF FB ACC LEFT IN BODY FOL UNSP PROCEDURE, INIT (14) DVT prophylaxis Assessment/Plan: SCDs Code(s): Z29.9 - ENCOUNTER FOR PROPHYLACTIC MEASURES, UNSPECIFIED Visit type - Emergency Visit Emergency Visit: Yes ED Registration Date: 04/09/20 Care time: The patient presented to the Emergency Department on the above date and was hospitalized for further evaluation of their emergent condition. - New Patient This patient is new to me today: No - Critical Care Critical Care patient: No - Medication Review Med list reviewed for High Risk Meds patients 65 and older: No
--- NOTE | 2020-06-10 10:45 | PN ---
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 (short form) - Note 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: Chief Complaint: no CP/SOB/palps/dizzy Current Medications Generic Name Dose Route Start Last Admin Trade Name Freq PRN Reason Stop Dose Admin Acetaminophen 650 mg 05/16/20 20:58 06/09/20 16:29 Tylenol - PO 650 mg Q6H PRN Administration Fever Amino Acids 30 ml 05/20/20 01:07 06/10/20 06:33 Prosource No Carb Liquid Pkt PO 30 ml TIDAC JAYE Administration Amlodipine Besylate 10 mg 05/21/20 10:00 06/09/20 11:00 Norvasc - PO 10 mg DAILY JAYE Administration Ascorbic Acid 500 mg 05/16/20 22:00 06/09/20 22:26 Vitamin C - PO 500 mg BID JAYE Administration Aspirin 81 mg 06/06/20 10:00 06/09/20 11:00 Asa - GT 81 mg DAILY JAYE Administration Atorvastatin Calcium 40 mg 06/02/20 22:00 06/09/20 22:25 Lipitor - PEG 40 mg HS JAYE Administration Citalopram Hydrobromide 20 mg 05/16/20 22:00 06/09/20 22:26 Celexa - PO 20 mg HS JAYE Administration Diphenhydramine HCl 25 mg 05/27/20 16:58 05/28/20 09:04 Benadryl - PO 25 mg ONCE PRN Administration itching Diphenhydramine HCl 25 mg 05/28/20 08:52 05/31/20 22:24 Benadryl - PO 25 mg Q6H PRN Administration FOR ITCHING Docusate Sodium 100 mg 05/18/20 11:15 06/09/20 22:25 Colace Liquid - PO 100 mg BID JAYE Administration Metoprolol Succinate 25 mg 06/02/20 10:00 06/09/20 11:00 Toprol Xl - PO 25 mg DAILY JAYE Administration Mirtazapine 7.5 mg 05/16/20 22:00 06/09/20 22:25 Remeron - PO 7.5 mg HS JAYE Administration Multivitamins/Minerals 15 ml 05/17/20 10:00 06/09/20 10:59 Certavite-Antioxidant Liquid PO 15 ml DAILY JAYE Administration Nystatin 500,000 units 05/18/20 18:00 06/10/20 06:33 Nystatin Oral Suspension - PO 500,000 units Q6HPO JAYE Administration Ondansetron HCl 4 mg 05/16/20 20:58 Zofran Injection IVPUSH Q6H PRN NAUSEA AND/OR VOMITING Oxycodone HCl 5 mg 06/06/20 16:03 06/09/20 16:28 Roxicodone - PO 5 mg Q6H PRN Administration PAIN LEVEL 6-10 Pantoprazole Sodium 40 mg 05/17/20 07:00 06/10/20 06:33 Protonix Packets For Oral Suspension - PO 40 mg ACBK JAYE Administration Polyethylene Glycol 17 gm 05/16/20 20:58 Miralax (For Daily Use) - PO BID PRN CONSTIPATION Senna/Docusate Sodium 1 tablet 05/16/20 20:58 Pericolace - PO BID PRN CONSTIPATION Vital Signs Period Temp Pulse Resp BP Sys/Lepe Pulse Ox Last 24 Hr 97.8 F-98.6 F 75-83 16-20 125-140/56-69 96-98 Constitutional: Yes: No Distress Cardiovascular: Yes: Regular Rate and Rhythm Respiratory: Yes: CTA Bilaterally Gastrointestinal: Yes: Soft (nt) Edema: No Neurological: Yes: Other (left sided weakness) no jaundice diaphoresis awake alert Labs: CBC, BMP 06/01/20 11:26 06/05/20 08:00 - ....Imaging EKG: Image Reviewed Assessment/Plan DATA: echo 05/2020: nl lv/rv, mild as carotid: mild dz, no sig stenosis 80 f hx htn, hld, here for elective spine surgery, CVA. htn: -cont ccb, bb hld: -cont statin cva: -cont bp control -cont statin -on asa -echo and carotids unremarkable -neuro following svt: -cont bb
[2020-06-10] MEDS: amLODIPine BESYLATE 10 MG TABLET (FP) PO SCH (10:59)
[2020-06-10] MEDS: DOCUSATE NA 100 MG/10 ML UNIT-DOSE CUPS PO SCH ×2 (10:59→21:45)
[2020-06-10] MEDS: MULTIVIT-MINERALS ORAL LIQUID PO SCH (10:59)
[2020-06-10] MEDS: ASPIRIN 81 MG CHEWABLE TABLETS GT SCH (10:59)
[2020-06-10] MEDS: ASCORBIC ACID 500 MG TABLET (FP) PO SCH ×2 (10:59→21:45)
[2020-06-10] MEDS: metoPROLOL SUCCINATE 25 MG TAB.SR.24H (FP) PO SCH (10:59)
[2020-06-10] MEDS: ACETAMINOPHEN 325 MG TABLET (FP) PO PRN (11:37)
[2020-06-10] MEDS: oxyCODONE HCL 5 MG TABLET PO PRN ×2 (11:37→21:48)
[2020-06-10] MEDS: MIRTAZAPINE 15 MG TABLET (FP) PO SCH (21:45)
[2020-06-10] MEDS: CITALOPRAM HYDROBROMIDE 20 MG TABLET PO SCH (21:45)
[2020-06-10] MEDS: ATORVASTATIN CA 40 MG TABLET (FP) PEG SCH (21:45)
[2020-06-11] MEDS: NYSTATIN 500,000 UNITS/5 ML SUSPENSION PO SCH ×5 (00:23→23:13)
[2020-06-11] MEDS: AMINO ACIDS/PROTEIN HYDROLYS 30 ML LIQUID.PKT PO SCH ×3 (06:20→16:27)
[2020-06-11] MEDS: PANTOPRAZOLE SOD 40 MG SUSPENSION PACKET PO SCH (06:20)
[2020-06-11] MEDS: oxyCODONE HCL 5 MG TABLET PO PRN ×2 (06:20→22:56)
[2020-06-11] MEDS ORDERED: PT OWN MED DRAWER 7, Y5N ONE (09:10)
[2020-06-11] MEDS: ASPIRIN 81 MG CHEWABLE TABLETS GT SCH (09:15)
[2020-06-11] MEDS: amLODIPine BESYLATE 10 MG TABLET (FP) PO SCH (09:15)
[2020-06-11] MEDS: ASCORBIC ACID 500 MG TABLET (FP) PO SCH ×2 (09:15→22:56)
[2020-06-11] MEDS: metoPROLOL SUCCINATE 25 MG TAB.SR.24H (FP) PO SCH (09:15)
[2020-06-11] MEDS: DOCUSATE NA 100 MG/10 ML UNIT-DOSE CUPS PO SCH ×2 (09:15→22:55)
[2020-06-11] MEDS: MULTIVIT-MINERALS ORAL LIQUID PO SCH (09:17)
--- NOTE | 2020-06-11 10:33 | PN ---
Physical Exam: SUBJECTIVE: Patient seen and examined, NAD left hand edema noted, no edema noted to arm son at bedside, SW present plan for home hospice tomorrow, seen by Surgery today -return to OR for I&D sponge removal and possible attempt at delayed primary closure tomorrow d/w son, nurse to benjamin Gomez to call family and discuss OBJECTIVE: Vital Signs Period Temp Pulse Resp BP Sys/Lepe Pulse Ox Last 24 Hr 98.1 F-98.6 F 77-84 18-20 114-145/53-79 95-98 GENERAL: The patient is awake, alert, and fully oriented, in no acute distress. HEAD: Normal with no signs of trauma. EYES: PERRL, extraocular movements intact, sclera anicteric, conjunctiva clear. No ptosis. ENT: Ears normal, nares patent, oropharynx clear without exudates, moist mucous membranes. NECK: Trachea midline, full range of motion, supple. LUNGS: Breath sounds equal, clear to auscultation bilaterally, no wheezes, no crackles, no accessory muscle use. HEART: Regular rate and rhythm, S1, S2 without murmur, rub or gallop. ABDOMEN: Soft, nontender, nondistended, normoactive bowel sounds, no guarding, no rebound, no hepatosplenomegaly, no masses. EXTREMITIES: 2+ pulses, warm, well-perfused, no edema. NEUROLOGICAL: Cranial nerves II through XII grossly intact. Normal speech, gait not observed. PSYCH: Normal mood, normal affect. SKIN: Warm, dry, normal turgor, no rashes or lesions noted Active Medications Generic Name Dose Route Start Last Admin Trade Name Maurice PRN Reason Stop Dose Admin Acetaminophen 650 mg 05/16/20 20:58 06/10/20 11:37 Tylenol - PO 650 mg Q6H PRN Administration Fever Amino Acids 30 ml 05/20/20 01:07 06/11/20 06:20 Prosource No Carb Liquid Pkt PO 30 ml TIDAC JAYE Administration Amlodipine Besylate 10 mg 05/21/20 10:00 06/11/20 09:15 Norvasc - PO 10 mg DAILY JAYE Administration Ascorbic Acid 500 mg 05/16/20 22:00 06/11/20 09:15 Vitamin C - PO 500 mg BID JAYE Administration Aspirin 81 mg 06/06/20 10:00 06/11/20 09:15 Asa - GT 81 mg DAILY JAYE Administration Atorvastatin Calcium 40 mg 06/02/20 22:00 06/10/20 21:45 Lipitor - PEG 40 mg HS JAYE Administration Citalopram Hydrobromide 20 mg 05/16/20 22:00 06/10/20 21:45 Celexa - PO 20 mg HS JAYE Administration Diphenhydramine HCl 25 mg 05/27/20 16:58 05/28/20 09:04 Benadryl - PO 25 mg ONCE PRN Administration itching Diphenhydramine HCl 25 mg 05/28/20 08:52 05/31/20 22:24 Benadryl - PO 25 mg Q6H PRN Administration FOR ITCHING Docusate Sodium 100 mg 05/18/20 11:15 06/11/20 09:15 Colace Liquid - PO 100 mg BID JAYE Administration Metoprolol Succinate 25 mg 06/02/20 10:00 06/11/20 09:15 Toprol Xl - PO 25 mg DAILY JAYE Administration Mirtazapine 7.5 mg 05/16/20 22:00 06/10/20 21:45 Remeron - PO 7.5 mg HS JAYE Administration Multivitamins/Minerals 15 ml 05/17/20 10:00 06/11/20 09:17 Certavite-Antioxidant Liquid PO 15 ml DAILY JAYE Administration Nystatin 500,000 units 05/18/20 18:00 06/11/20 06:20 Nystatin Oral Suspension - PO 500,000 units Q6HPO JAYE Administration Ondansetron HCl 4 mg 05/16/20 20:58 Zofran Injection IVPUSH Q6H PRN NAUSEA AND/OR VOMITING Pantoprazole Sodium 40 mg 05/17/20 07:00 06/11/20 06:20 Protonix Packets For Oral Suspension - PO 40 mg ACBK JAYE Administration Polyethylene Glycol 17 gm 05/16/20 20:58 Miralax (For Daily Use) - PO BID PRN CONSTIPATION Senna/Docusate Sodium 1 tablet 05/16/20 20:58 Pericolace - PO BID PRN CONSTIPATION ASSESSMENT/PLAN: Patient is a 80 year old female with a history of hypertension, dementia, depression, spinal stenosis, neuropathy she is s/p removal of L3-L5 hardware, including L4-L5 intervertebral cage, L3-S1 laminectomy, L5-S1 PLIF, L3-S1 posterior instrumented spinal fusion. She is s/p multiple washouts for infected hardware. hospitalization complicated when patient was noted to have left upper ext weakness and brain mri showed small post periventricular infarct. She is being followed by neurology and cardiology. Patient had a peg tube pl aced on 05/29/2020. Patient is pending hospice evaluation. Problem List - Problems (1) Encounter for tube feeding instruction Assessment/Plan: continue tube feeds: pivot 1.5mg 55cc hr with 45cc water flushes. also on dysphagia pureed nectar thick fluids. maintain aspiration precautions. Code(s): Z71.89 - OTHER SPECIFIED COUNSELING (2) DNI (do not intubate) Assessment/Plan: per molst form Code(s): Z78.9 - OTHER SPECIFIED HEALTH STATUS (3) DNR (do not resuscitate) Assessment/Plan: per molst form Code(s): Z66 - DO NOT RESUSCITATE (4) CVA (cerebral vascular accident) Assessment/Plan: recent infarct seen on brain mri 05/16/2020. on asa, statin therapy physical therapy following speech and swallow following neurology following Code(s): I63.9 - CEREBRAL INFARCTION, UNSPECIFIED (5) Severe sepsis Assessment/Plan: spinal stenosis. s/p removal of L3-L5 hardware, including L4-L5 intervertebral cage, L3-S1 laminectomy, L5-S1 PLIF, L3-S1 posterior instrumented spinal fusion. s/p multiple washouts now with wound vac was on daptomycin and meropenem per ID but now all antibiotics discontinued as goals is home hospice and end of life care patient s/p washout 05/12/2020 no further lab draws Code(s): A41.9 - SEPSIS, UNSPECIFIED ORGANISM; R65.20 - SEVERE SEPSIS WITHOUT SEPTIC SHOCK (6) Unstageable pressure ulcer of right heel Assessment/Plan: unstageable right heel pressure ulcer, purple in color, round. patient denies pain. plan to continue to: - elevate heels at all times. - add santyl daily - vascular evaluated, notes reviewed - monitor wound daily Code(s): L89.610 - PRESSURE ULCER OF RIGHT HEEL, UNSTAGEABLE (7) Poor appetite Assessment/Plan: peg tube placed 05/29/2020, on pivot 1.5 feeds Code(s): R63.0 - ANOREXIA (8) Toxic metabolic encephalopathy Assessment/Plan: mental status has improved patient noted to have an acute stroke per brain mri 05/16/2020, has left arm weakness -elevate left hand Code(s): G92 - TOXIC ENCEPHALOPATHY (9) Status post spinal surgery Assessment/Plan: Wound culture from 04/23/2020 grew pseudomonas. was on daptomycin, but discontinued as family wants hospice and declined any further antibiotic treatment or blood draws. Code(s): Z98.890 - OTHER SPECIFIED POSTPROCEDURAL STATES (10) At risk for dehydration due to poor fluid intake Assessment/Plan: on tube feeds, pivot 1.5mg continuous with water flushes. Code(s): Z91.89 - OTH PERSONAL RISK FACTORS, NOT ELSEWHERE CLASSIFIED (11) Prophylactic measure Assessment/Plan: dietary following pt is a dnr/dni no further blood draws comfort care Code(s): Z29.9 - ENCOUNTER FOR PROPHYLACTIC MEASURES, UNSPECIFIED (12) Encounter for hospice care discussion Assessment/Plan: GOC discussed with family on 06/06/2020. See above note. Code(s): Z71.89 - OTHER SPECIFIED COUNSELING (13) Sponge retention Assessment/Plan: wound vac removed and patient has retained black foam from wound vac sponge on her back attached to her soft tissue. discussed with Dr. gomez on 06/06/2020 who will remove retained sponge at the bedside. Code(s): T81.509A - UNSP COMP OF FB ACC LEFT IN BODY FOL UNSP PROCEDURE, INIT (14) DVT prophylaxis Assessment/Plan: SCDs Code(s): Z29.9 - ENCOUNTER FOR PROPHYLACTIC MEASURES, UNSPECIFIED Visit type - Emergency Visit Emergency Visit: Yes ED Registration Date: 04/09/20 Care time: The patient presented to the Emergency Department on the above date and was hospitalized for further evaluation of their emergent condition. - New Patient This patient is new to me today: No - Critical Care Critical Care patient: No - Discharge Referral Referred to [facility] Med P.C[facility] No - Medication Review Med list reviewed for High Risk Meds patients 65 and older: No
--- NOTE | 2020-06-11 10:38 | PN ---
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 (short form) - Note 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: Chief Complaint: no CP/SOB/palps/dizzy Current Medications Generic Name Dose Route Start Last Admin Trade Name Freq PRN Reason Stop Dose Admin Acetaminophen 650 mg 05/16/20 20:58 06/10/20 11:37 Tylenol - PO 650 mg Q6H PRN Administration Fever Amino Acids 30 ml 05/20/20 01:07 06/11/20 06:20 Prosource No Carb Liquid Pkt PO 30 ml TIDAC JAYE Administration Amlodipine Besylate 10 mg 05/21/20 10:00 06/11/20 09:15 Norvasc - PO 10 mg DAILY JAYE Administration Ascorbic Acid 500 mg 05/16/20 22:00 06/11/20 09:15 Vitamin C - PO 500 mg BID JAYE Administration Aspirin 81 mg 06/06/20 10:00 06/11/20 09:15 Asa - GT 81 mg DAILY JAYE Administration Atorvastatin Calcium 40 mg 06/02/20 22:00 06/10/20 21:45 Lipitor - PEG 40 mg HS JAYE Administration Citalopram Hydrobromide 20 mg 05/16/20 22:00 06/10/20 21:45 Celexa - PO 20 mg HS JAYE Administration Diphenhydramine HCl 25 mg 05/27/20 16:58 05/28/20 09:04 Benadryl - PO 25 mg ONCE PRN Administration itching Diphenhydramine HCl 25 mg 05/28/20 08:52 05/31/20 22:24 Benadryl - PO 25 mg Q6H PRN Administration FOR ITCHING Docusate Sodium 100 mg 05/18/20 11:15 06/11/20 09:15 Colace Liquid - PO 100 mg BID JAYE Administration Metoprolol Succinate 25 mg 06/02/20 10:00 06/11/20 09:15 Toprol Xl - PO 25 mg DAILY JAYE Administration Mirtazapine 7.5 mg 05/16/20 22:00 06/10/20 21:45 Remeron - PO 7.5 mg HS JAYE Administration Multivitamins/Minerals 15 ml 05/17/20 10:00 06/11/20 09:17 Certavite-Antioxidant Liquid PO 15 ml DAILY JAYE Administration Nystatin 500,000 units 05/18/20 18:00 06/11/20 06:20 Nystatin Oral Suspension - PO 500,000 units Q6HPO JAYE Administration Ondansetron HCl 4 mg 05/16/20 20:58 Zofran Injection IVPUSH Q6H PRN NAUSEA AND/OR VOMITING Pantoprazole Sodium 40 mg 05/17/20 07:00 06/11/20 06:20 Protonix Packets For Oral Suspension - PO 40 mg ACBK JAYE Administration Polyethylene Glycol 17 gm 05/16/20 20:58 Miralax (For Daily Use) - PO BID PRN CONSTIPATION Senna/Docusate Sodium 1 tablet 05/16/20 20:58 Pericolace - PO BID PRN CONSTIPATION Vital Signs Period Temp Pulse Resp BP Sys/Lepe Pulse Ox Last 24 Hr 98.1 F-98.6 F 77-84 18-20 114-145/53-79 95-98 Constitutional: Yes: No Distress Cardiovascular: Yes: Regular Rate and Rhythm Respiratory: Yes: CTA Bilaterally Gastrointestinal: Yes: Soft (nt) Edema: No Neurological: Yes: Other (left sided weakness) no jaundice diaphoresis awake alert Labs: CBC, BMP 06/01/20 11:26 06/05/20 08:00 - ....Imaging EKG: Image Reviewed Assessment/Plan DATA: echo 05/2020: nl lv/rv, mild as carotid: mild dz, no sig stenosis 80 f hx htn, hld, here for elective spine surgery, CVA. htn: -cont ccb, bb hld: -cont statin cva: -cont bp control -cont statin -on asa -echo and carotids unremarkable -neuro following svt: -cont bb
--- NOTE | 2020-06-11 12:16 | PN ---
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 (short form) - Note 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: Clinically recognizes me and mentally appears better. Apyrexial Hemiplegia left still dense Wound Green preudomonas exudate Granulation bed Healthy Vac sponge in situ overlying the dura New wet to dry dressing applied PLAN Continue nutritional peg tube feeding For anesthesia consult re return to OR for I and D sponge removal and possible attempt at delayed primary closure Continue current medical and nursing Mx
[2020-06-11] MEDS: ACETAMINOPHEN 325 MG TABLET (FP) PO PRN (12:59)
[2020-06-11] MEDS: CITALOPRAM HYDROBROMIDE 20 MG TABLET PO SCH (22:55)
[2020-06-11] MEDS: MIRTAZAPINE 15 MG TABLET (FP) PO SCH (22:55)
[2020-06-11] MEDS: ATORVASTATIN CA 40 MG TABLET (FP) PEG SCH (22:55)
[2020-06-12 06:06] VITALS: BP 134/61; PULSE 79; TEMP 98.1
[2020-06-12] MEDS: PANTOPRAZOLE SOD 40 MG SUSPENSION PACKET PO SCH (06:55)
[2020-06-12] MEDS: AMINO ACIDS/PROTEIN HYDROLYS 30 ML LIQUID.PKT PO SCH ×2 (06:55→11:13)
[2020-06-12] MEDS: NYSTATIN 500,000 UNITS/5 ML SUSPENSION PO SCH ×2 (06:55→11:13)
[2020-06-12] MEDS: oxyCODONE HCL 5 MG TABLET PO PRN (06:55)
--- NOTE | 2020-06-12 08:38 | PN ---
Physical Exam: SUBJECTIVE: Patient seen and examined OBJECTIVE: Vital Signs Period Temp Pulse Resp BP Sys/Lepe Pulse Ox Last 24 Hr 97.7 F-98.5 F 77-81 18-20 114-137/57-71 95-97 GENERAL: The patient is awake, alert, and fully oriented, in no acute distress. HEAD: Normal with no signs of trauma. EYES: PERRL, extraocular movements intact, sclera anicteric, conjunctiva clear. No ptosis. ENT: Ears normal, nares patent, oropharynx clear without exudates, moist mucous membranes. NECK: Trachea midline, full range of motion, supple. LUNGS: Breath sounds equal, clear to auscultation bilaterally, no wheezes, no crackles, no accessory muscle use. HEART: Regular rate and rhythm, S1, S2 without murmur, rub or gallop. ABDOMEN: Soft, nontender, nondistended, normoactive bowel sounds, no guarding, no rebound, no hepatosplenomegaly, no masses. EXTREMITIES: 2+ pulses, warm, well-perfused, no edema. NEUROLOGICAL: Cranial nerves II through XII grossly intact. Normal speech, gait not observed. PSYCH: Normal mood, normal affect. SKIN: Warm, dry, normal turgor, no rashes or lesions noted Active Medications Generic Name Dose Route Start Last Admin Trade Name Freq PRN Reason Stop Dose Admin Acetaminophen 650 mg 05/16/20 20:58 06/11/20 12:59 Tylenol - PO 650 mg Q6H PRN Administration Fever Amino Acids 30 ml 05/20/20 01:07 06/12/20 06:55 Prosource No Carb Liquid Pkt PO 30 ml TIDAC JAYE Administration Amlodipine Besylate 10 mg 05/21/20 10:00 06/11/20 09:15 Norvasc - PO 10 mg DAILY JAYE Administration Ascorbic Acid 500 mg 05/16/20 22:00 06/11/20 22:56 Vitamin C - PO 500 mg BID JAYE Administration Aspirin 81 mg 06/06/20 10:00 06/11/20 09:15 Asa - GT 81 mg DAILY JAYE Administration Atorvastatin Calcium 40 mg 06/02/20 22:00 06/11/20 22:55 Lipitor - PEG 40 mg HS JAYE Administration Citalopram Hydrobromide 20 mg 05/16/20 22:00 06/11/20 22:55 Celexa - PO 20 mg HS JAYE Administration Diphenhydramine HCl 25 mg 05/27/20 16:58 05/28/20 09:04 Benadryl - PO 25 mg ONCE PRN Administration itching Diphenhydramine HCl 25 mg 05/28/20 08:52 05/31/20 22:24 Benadryl - PO 25 mg Q6H PRN Administration FOR ITCHING Docusate Sodium 100 mg 05/18/20 11:15 06/11/20 22:55 Colace Liquid - PO 100 mg BID JAYE Administration Metoprolol Succinate 25 mg 06/02/20 10:00 06/11/20 09:15 Toprol Xl - PO 25 mg DAILY JAYE Administration Mirtazapine 7.5 mg 05/16/20 22:00 06/11/20 22:55 Remeron - PO 7.5 mg HS JAYE Administration Multivitamins/Minerals 15 ml 05/17/20 10:00 06/11/20 09:17 Certavite-Antioxidant Liquid PO 15 ml DAILY JAYE Administration Nystatin 500,000 units 05/18/20 18:00 06/12/20 06:55 Nystatin Oral Suspension - PO 500,000 units Q6HPO JAYE Administration Ondansetron HCl 4 mg 05/16/20 20:58 Zofran Injection IVPUSH Q6H PRN NAUSEA AND/OR VOMITING Oxycodone HCl 5 mg 06/11/20 21:23 06/12/20 06:55 Roxicodone - PO 5 mg Q6H PRN Administration PAIN LEVEL 6-10 Pantoprazole Sodium 40 mg 05/17/20 07:00 06/12/20 06:55 Protonix Packets For Oral Suspension - PO 40 mg ACBK JAYE Administration Polyethylene Glycol 17 gm 05/16/20 20:58 Miralax (For Daily Use) - PO BID PRN CONSTIPATION Senna/Docusate Sodium 1 tablet 05/16/20 20:58 Pericolace - PO BID PRN CONSTIPATION ASSESSMENT/PLAN: Green preudomonas exudate Granulation bed Healthy Vac sponge in situ overlying the dura New wet to dry dressing applied PLAN Continue nutritional peg tube feeding For anesthesia consult re return to OR for I and D sponge removal and possible attempt at delayed primary closure Continue current medical and nursing Mx Per family, they want to abide by Makenna's wishes and focus on comfort. They are declining any further surgeries and would like patient on hospice care. They would like to continue the peg tube feeds at home. They decline further antibiotics or further blood draws son signed a DNR/DNI and I entered it on [employer]
--- NOTE | 2020-06-12 09:23 | DS ---
Physical Exam: SUBJECTIVE: Patient seen and examined OBJECTIVE: Vital Signs Period Temp Pulse Resp BP Sys/Lepe Pulse Ox Last 24 Hr 97.7 F-98.5 F 77-81 18-20 114-137/57-71 95-97 PHYSICAL EXAM GENERAL: The patient is awake, alert, and fully oriented, in no acute distress. HEAD: Normal with no signs of trauma. EYES: PERRL, extraocular movements intact, sclera anicteric, conjunctiva clear. ENT: Ears normal, nares patent, oropharynx clear without exudates, moist mucous membranes. NECK: Trachea midline, full range of motion, supple. LUNGS: Breath sounds equal, clear to auscultation bilaterally, no wheezes, no crackles, no accessory muscle use. HEART: Regular rate and rhythm, S1, S2 without murmur, rub or gallop. ABDOMEN: Soft, nontender, nondistended, normoactive bowel sounds, no guarding, no rebound, no hepatosplenomegaly, no masses. EXTREMITIES: 2+ pulses, warm, well-perfused, no edema. NEUROLOGICAL: Cranial nerves II through XII grossly intact. Normal speech, gait not observed. PSYCH: Normal mood, normal affect. SKIN: Warm, dry, normal turgor, no rashes or lesions noted. LABS CBCD WBC 16.7 K/mm3 (4.0-10.0) H 06/01/20 11:26 RBC 3.49 M/mm3 (3.60-5.2) L 06/01/20 11:26 Hgb 9.3 GM/dL (10.7-15.3) L 06/01/20 11:26 Hct 28.8 % (32.4-45.2) L 06/01/20 11:26 MCV 82.4 fl (80-96) 06/01/20 11:26 MCHC 32.2 g/dl (32.0-36.0) 06/01/20 11:26 RDW 17.7 % (11.6-15.6) H 06/01/20 11:26 Plt Count 440 K/MM3 (134-434) H 06/01/20 11:26 MPV 7.6 fl (7.5-11.1) 06/01/20 11:26 CMP Sodium 140 mmol/L (136-145) 06/05/20 08:00 Potassium 4.2 mmol/L (3.5-5.1) 06/05/20 08:00 Chloride 105 mmol/L (98-107) 06/05/20 08:00 Carbon Dioxide 31 mmol/L (21-32) 06/05/20 08:00 Anion Gap 5 MMOL/L (8-16) L 06/05/20 08:00 BUN 40.5 mg/dL (7-18) H 06/05/20 08:00 Creatinine 0.6 mg/dL (0.55-1.3) 06/05/20 08:00 Calcium 9.2 mg/dL (8.5-10.1) 06/05/20 08:00 Total Bilirubin 0.2 mg/dL (0.2-1) 06/05/20 08:00 AST 39 U/L (15-37) H 06/05/20 08:00 ALT 34 U/L (13-61) 06/05/20 08:00 Alkaline Phosphatase 110 U/L (45-117) 06/05/20 08:00 Total Protein 6.4 g/dl (6.4-8.2) 06/05/20 08:00 Albumin 2.0 g/dl (3.4-5.0) L 06/05/20 08:00 HOSPITAL COURSE: Date of Admission:04/09/20 Date of Discharge: 06/12/20 Patient is a 79 year old female with history of hypertension, dementia, depression, spinal stenosis, neuropathy who underwent removal of L3-L5 hardware, including L4-L5 intervertebral cage, L3-S1 laminectomy, L5-S1 PLIF, L3-S1 post erior instrumented spinal fusion on 04/09/20. Post-operative course complicated by E.coli bacteremia, Pseudomonas UTI, and surgical wound infection with E.coli, VRE faecalis, and pseudomonas. Underwent multiple washouts and wound vac placement. Treated with multiple antibiotics. Post-operative course further complicated by an acute right posterior periventricular infarct on 05/16/20 with left-sided deficits. PEG tube placed 05/29/20. Family meeting held on 06/08/20. "Per family, they want to abide by Makenna's wishes and focus on comfort. They are declining any further surgeries and would like patient on hospice care. They would like to continue the peg tube feeds at home. They decline further antibiotics or further blood draws. Son signed a DNR/DNI." Minutes to complete discharge: 35 Discharge Summary Problems reviewed: Yes Reason For Visit: INTERVERTEBRAL DISC DISORDERS Current Active Problems At risk for dehydration due to poor fluid intake (Acute) Bacteremia due to Gram-negative bacteria (Acute) COVID-19 ruled out (Acute) CVA (cerebral vascular accident) (Acute) DNI (do not intubate) (Acute) DNR (do not resuscitate) (Acute) DVT prophylaxis (Acute) Dementia (Acute) Depression (Acute) Discharge planning issues (Acute) Encounter for hospice care discussion (Acute) Encounter for hospice care discussion (Acute) Encounter for tube feeding instruction (Acute) Failure to thrive (Acute) G tube feedings (Acute) Hospice care patient (Acute) Hypertension (Acute) Hypertension (Acute) Left-sided weakness (Acute) Leukocytosis (Acute) Malnutrition (Acute) Poor appetite (Acute) Postprocedural state (Acute) Prophylactic measure (Acute) Radiculopathy of lumbosacral region (Acute) Severe malnutrition (Acute) Severe sepsis (Acute) Severe sepsis (Acute) Sponge retention (Acute) Status post spinal surgery (Acute) Thrombocytosis (Acute) Thrombocytosis (Acute) Toxic metabolic encephalopathy (Acute) Unstageable pressure ulcer of right heel (Acute) Urinary incontinence (Acute) Condition: Guarded - Instructions Diet, Activity, Other Instructions: You will be receiving visiting nurse services. You will continue on tube feeds: Pivot 360mL q6h. Before and after each bolus feed, water flush 50mL Prescriptions have been sent to your pharmacy. Disposition: VNS/HOME HEALTH CARE - Home Medications Comprehensive Discharge Medication List: Ambulatory Orders Citalopram Hydrobromide [Citalopram HBr] 20 mg PO HS 02/18/20 Losartan Potassium [Cozaar] 25 mg PO DAILY 02/18/20 Mirtazapine 7.5 mg PO HS 04/09/20 Nut.tx.comp. Immune Systm,Reg [Pivot 1.5 Bhavin] 55 ml GT DAILY #30 bottle 06/08/20 Prescription Drug Monitoring Program (I-STOP) results: I-STOP not reviewed This patient is new to me today: Yes Date on this admission: 06/17/20 Emergency Visit: No Critical Care patient: No - Discharge Referral Referred to [facility] Med [facility] No
[2020-06-12] MEDS: DOCUSATE NA 100 MG/10 ML UNIT-DOSE CUPS PO SCH (11:00)
[2020-06-12] MEDS ORDERED: PT OWN MED DRAWER 7, Y5N ONE (11:08)
[2020-06-12] MEDS: ASPIRIN 81 MG CHEWABLE TABLETS GT SCH (11:12)
[2020-06-12] MEDS: MULTIVIT-MINERALS ORAL LIQUID PO SCH (11:12)
[2020-06-12] MEDS: ASCORBIC ACID 500 MG TABLET (FP) PO SCH (11:13)
[2020-06-12] MEDS: amLODIPine BESYLATE 10 MG TABLET (FP) PO SCH (11:13)
[2020-06-12] MEDS: metoPROLOL SUCCINATE 25 MG TAB.SR.24H (FP) PO SCH (11:13)
--- NOTE | 2020-06-12 11:59 | PN ---
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 (short form) - Note 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: s: no chest pain, palps, dizziness, dyspnea Current Medications Generic Name Dose Route Start Last Admin Trade Name Freq PRN Reason Stop Dose Admin Acetaminophen 650 mg 05/16/20 20:58 06/11/20 12:59 Tylenol - PO 650 mg Q6H PRN Administration Fever Amino Acids 30 ml 05/20/20 01:07 06/12/20 11:13 Prosource No Carb Liquid Pkt PO 30 ml TIDAC JAYE Administration Amlodipine Besylate 10 mg 05/21/20 10:00 06/12/20 11:13 Norvasc - PO 10 mg DAILY JAYE Administration Ascorbic Acid 500 mg 05/16/20 22:00 06/12/20 11:13 Vitamin C - PO 500 mg BID JAYE Administration Aspirin 81 mg 06/06/20 10:00 06/12/20 11:12 Asa - GT 81 mg DAILY JAYE Administration Atorvastatin Calcium 40 mg 06/02/20 22:00 06/11/20 22:55 Lipitor - PEG 40 mg HS JAYE Administration Citalopram Hydrobromide 20 mg 05/16/20 22:00 06/11/20 22:55 Celexa - PO 20 mg HS JAYE Administration Diphenhydramine HCl 25 mg 05/27/20 16:58 05/28/20 09:04 Benadryl - PO 25 mg ONCE PRN Administration itching Diphenhydramine HCl 25 mg 05/28/20 08:52 05/31/20 22:24 Benadryl - PO 25 mg Q6H PRN Administration FOR ITCHING Docusate Sodium 100 mg 05/18/20 11:15 06/11/20 22:55 Colace Liquid - PO 100 mg BID JAYE Administration Metoprolol Succinate 25 mg 06/02/20 10:00 06/12/20 11:13 Toprol Xl - PO 25 mg DAILY JAYE Administration Mirtazapine 7.5 mg 05/16/20 22:00 06/11/20 22:55 Remeron - PO 7.5 mg HS JAYE Administration Multivitamins/Minerals 15 ml 05/17/20 10:00 06/12/20 11:12 Certavite-Antioxidant Liquid PO 15 ml DAILY JAYE Administration Nystatin 500,000 units 05/18/20 18:00 06/12/20 11:13 Nystatin Oral Suspension - PO 500,000 units Q6HPO JAYE Administration Ondansetron HCl 4 mg 05/16/20 20:58 Zofran Injection IVPUSH Q6H PRN NAUSEA AND/OR VOMITING Oxycodone HCl 5 mg 06/11/20 21:23 06/12/20 06:55 Roxicodone - PO 5 mg Q6H PRN Administration PAIN LEVEL 6-10 Pantoprazole Sodium 40 mg 05/17/20 07:00 06/12/20 06:55 Protonix Packets For Oral Suspension - PO 40 mg ACBK JAYE Administration Polyethylene Glycol 17 gm 05/16/20 20:58 Miralax (For Daily Use) - PO BID PRN CONSTIPATION Senna/Docusate Sodium 1 tablet 05/16/20 20:58 Pericolace - PO BID PRN CONSTIPATION Vital Signs Period Temp Pulse Resp BP Sys/Lepe Pulse Ox Last 24 Hr 97.7 F-98.5 F 79-81 18-20 128-137/61-71 96-97 Constitutional: Yes: No Distress Cardiovascular: Yes: Regular Rate and Rhythm Respiratory: Yes: CTA Bilaterally Gastrointestinal: Yes: Soft (nt) Edema: No Neurological: Yes: Other (left sided weakness) no jaundice diaphoresis awake alert Assessment/Plan DATA: echo 05/2020: nl lv/rv, mild as carotid: mild dz, no sig stenosis 80 f hx htn, hld, here for elective spine surgery, CVA. htn: -cont ccb, bb hld: -cont statin cva: -cont bp control -cont statin -on asa -echo and carotids unremarkable -neuro following svt: -cont bb planned for dc with home hospice
== END 2020-06-12 15:44 | disposition home health service (06) | DRG 459 ==
LOC: J2C 06:00 → EDSTATUS 08:00 → JICU 18:14 → J6WEST-2 04-13 22:09 → J8W 04-16 19:58 → JICU 04-18 20:45 → J4W 04-28 00:12 → J8W 05-02 14:21 → J4S 05-16 20:12
PROVIDERS: ADMIT Orthopaedic Surgery Orthopaedic Surgery of the Spine; ATTEND Nurse Practitioner Acute Care
PROC: 0SG10AJ Fusion of 2 or more Lumbar Vertebral Joints with Interbody Fusion Device, Posterior Approach, Anterior Column, Open Approach (ICD-10-PCS; 2020-04-09)
PROC: 0SG107J Fusion of 2 or more Lumbar Vertebral Joints with Autologous Tissue Substitute, Posterior Approach, Anterior Column, Open Approach (ICD-10-PCS; 2020-04-09)
PROC: 00NY0ZZ Release Lumbar Spinal Cord, Open Approach (ICD-10-PCS; 2020-04-09)
PROC: 0SB20ZZ Excision of Lumbar Vertebral Disc, Open Approach (ICD-10-PCS; 2020-04-09)
PROC: 0SP30AZ Removal of Interbody Fusion Device from Lumbosacral Joint, Open Approach (ICD-10-PCS; 2020-04-09)
PROC: 0SG30AJ Fusion of Lumbosacral Joint with Interbody Fusion Device, Posterior Approach, Anterior Column, Open Approach (ICD-10-PCS; 2020-04-09)
PROC: 0SG307J Fusion of Lumbosacral Joint with Autologous Tissue Substitute, Posterior Approach, Anterior Column, Open Approach (ICD-10-PCS; 2020-04-09)
PROC: 00Q20ZZ Repair Dura Mater, Open Approach (ICD-10-PCS; 2020-04-09)
PROC: 0JB70ZZ Excision of Back Subcutaneous Tissue and Fascia, Open Approach (ICD-10-PCS; 2020-04-09)
PROC: B01BZZZ Fluoroscopy of Spinal Cord (ICD-10-PCS; 2020-04-09)
PROC: 4A11X4G Monitoring of Peripheral Nervous Electrical Activity, Intraoperative, External Approach (ICD-10-PCS; 2020-04-09)
PROC: 0SP00AZ Removal of Interbody Fusion Device from Lumbar Vertebral Joint, Open Approach (ICD-10-PCS; principal; 2020-04-09 08:00)
PROC: 0J970ZX Drainage of Back Subcutaneous Tissue and Fascia, Open Approach, Diagnostic (ICD-10-PCS; 2020-04-18)
PROC: 2W45X5Z Packing of Back using Packing Material (ICD-10-PCS; 2020-04-18)
PROC: 3E10X8Z Irrigation of Skin and Mucous Membranes using Irrigating Substance (ICD-10-PCS; 2020-04-18)
PROC: 0J970ZX Drainage of Back Subcutaneous Tissue and Fascia, Open Approach, Diagnostic (ICD-10-PCS; 2020-04-20)
PROC: 2W15X6Z Compression of Back using Pressure Dressing (ICD-10-PCS; 2020-04-20)
PROC: 0J970ZX Drainage of Back Subcutaneous Tissue and Fascia, Open Approach, Diagnostic (ICD-10-PCS; 2020-04-23)
PROC: 2W05X6Z Change Pressure Dressing on Back (ICD-10-PCS; 2020-04-23)
PROC: 30233N1 Transfusion of Nonautologous Red Blood Cells into Peripheral Vein, Percutaneous Approach (ICD-10-PCS; 2020-04-25)
PROC: 0J970ZX Drainage of Back Subcutaneous Tissue and Fascia, Open Approach, Diagnostic (ICD-10-PCS; 2020-04-25)
PROC: 2W05X6Z Change Pressure Dressing on Back (ICD-10-PCS; 2020-04-25)
PROC: 3E10X8Z Irrigation of Skin and Mucous Membranes using Irrigating Substance (ICD-10-PCS; 2020-04-25)
PROC: 0J970ZX Drainage of Back Subcutaneous Tissue and Fascia, Open Approach, Diagnostic (ICD-10-PCS; 2020-05-11)
PROC: 2W05X6Z Change Pressure Dressing on Back (ICD-10-PCS; 2020-05-11)
PROC: 0DH63UZ Insertion of Feeding Device into Stomach, Percutaneous Approach (ICD-10-PCS; 2020-05-29)
PROC: BD12ZZZ Fluoroscopy of Stomach (ICD-10-PCS; 2020-05-29)
PROC: 3E0G76Z Introduction of Nutritional Substance into Upper GI, Via Natural or Artificial Opening (ICD-10-PCS; 2020-05-29)
PROC: 2W5 Placement, Anatomical Regions, Removal (ICD-10-PCS; 2020-06-11)
DX: T84.028A Dislocation of other internal joint prosthesis, initial encounter (principal); L89.153 Pressure ulcer of sacral region, stage 3; T81.40XA Infection following a procedure, unspecified, initial encounter; T81.44XA Sepsis following a procedure, initial encounter; T81.509A Unspecified complication of foreign body accidentally left in body following unspecified procedure, initial encounter; A41.51 Sepsis due to Escherichia coli [E. coli]; A41.1 Sepsis due to other specified staphylococcus; R65.20 Severe sepsis without septic shock; G93.41 Metabolic encephalopathy; I63.9 Cerebral infarction, unspecified; G06.1 Intraspinal abscess and granuloma; N39.0 Urinary tract infection, site not specified; J98.11 Atelectasis; M87.9 Osteonecrosis, unspecified; Z68.1 Body mass index [BMI] 19.9 or less, adult; E46 Unspecified protein-calorie malnutrition; G97.41 Accidental puncture or laceration of dura during a procedure; I47.1 Supraventricular tachycardia; I69.354 Hemiplegia and hemiparesis following cerebral infarction affecting left non-dominant side; T84.63XA Infection and inflammatory reaction due to internal fixation device of spine, initial encounter; M48.062 Spinal stenosis, lumbar region with neurogenic claudication; M51.16 Intervertebral disc disorders with radiculopathy, lumbar region; M54.17 Radiculopathy, lumbosacral region; M54.9 Dorsalgia, unspecified; I10 Essential (primary) hypertension; F03.90 Unspecified dementia, unspecified severity, without behavioral disturbance, psychotic disturbance, mood disturbance, and anxiety; F32.9 Major depressive disorder, single episode, unspecified; E87.6 Hypokalemia; E83.42 Hypomagnesemia; R50.9 Fever, unspecified; G62.9 Polyneuropathy, unspecified; D64.9 Anemia, unspecified; R32 Unspecified urinary incontinence; I95.9 Hypotension, unspecified; R53.83 Other fatigue; D72.829 Elevated white blood cell count, unspecified; B96.5 Pseudomonas (aeruginosa) (mallei) (pseudomallei) as the cause of diseases classified elsewhere; R63.0 Anorexia; D47.3 Essential (hemorrhagic) thrombocythemia; L89.610 Pressure ulcer of right heel, unstageable; Y83.8 Other surgical procedures as the cause of abnormal reaction of the patient, or of later complication, without mention of misadventure at the time of the procedure; Z98.890 Other specified postprocedural states; Z91.89 Other specified personal risk factors, not elsewhere classified; Z51.5 Encounter for palliative care; Z66 Do not resuscitate
CPT/HCPCS: 36415; 36430; 36511; 36600; 49440; 70450-TC; 70551-TC; 71045-TC-FY; 74018-TC-FY; 76000-TC-FY; 80048; 80053; 80061; 81003; 82150; 82272; 82550; 82553; 82728; 82803; 82962; 83036; 83540; 83550; 83605; 83690; 83721; 83735; 84100; 84155; 84165; 85025; 85027; 85044; 85610; 85730; 86850; 86891; 86900; 86901; 86922; 87040; 87070; 87077; 87086; 87186; 87205; 87324; 87449; 88304-TC; 88311-TC; 93005; 93010; 93306-TC; 93880-TC; 93931; 94760; 97116-GP; 97162-GP; G0480; J0131; J0878; J1644; P9038; P9058; U0003